=== PATIENT | female | born 1945 | race Caucasian/White ===

== ENCOUNTER 2017-02-27 16:11 | Inpatient (IN) | payer MEDICARE ==
[2017-02-27] MEDS ORDERED: Furosemide IV* 10 MG/ML VIAL (40 MG) IV SLOW PU ONE (16:38)
[2017-02-27] MEDS ORDERED: methylPREDNISolone 125 MG* 2 ML VIAL IV ONE (16:39)
[2017-02-27 16:54] LABS: FIO2 10
--- NOTE | 2017-02-27 16:56 | RAD ---
INDICATION: Congestion, cough, shortness of breath. COMPARISON: Comparison is made with a prior study from September 18, 2013. TECHNIQUE: A portable view of the chest was obtained. FINDINGS: The heart appears mildly enlarged and unchanged from the prior exam. There is a catheter which projects over the right hemithorax and neck likely representing a ventricular peritoneal shunt catheter. There is a focal infiltrate at the right lung base and a small right pleural effusion. The left lung appears clear. IMPRESSION: RIGHT BASILAR INFILTRATE AND PLEURAL EFFUSION.
[2017-02-27 17:00] LABS: Hematocrit 40 % (35-47); Mean Corpuscular HGB Conc 32 g/dl (31-36); Mean Corpuscular Hemoglobin 30 pg (27-31); Mean Corpuscular Volume 93 fL (80-97); Mean Platelet Volume 9 um3 (7.4-10.4); Red Blood Count 4.34 10^6/ul (4.0-5.4); Red Cell Distribution Width 16 % (10.5-15); White Blood Count 6.7 10^3/ul (3.5-10.8)
[2017-02-27] MEDS ORDERED: cefTRIAXone(*) 1 GM in NS 0.9% 50 ML* 50 ML IVPB ONE (17:08)
[2017-02-27] MEDS ORDERED: Azithromycin IV(*) 500 MG in NS 0.9% 250 ML* 250 ML IVPB ONE ×2 (17:08→17:59)
[2017-02-27 17:16] LABS: Albumin 3.7 g/dL (3.2-5.2); Calcium 9.4 mg/dL (8.6-10.3); EGFR African American 57.5 (>60); EGFR Non-African American 44.7 (>60); Globulin 3.4 g/dL (2-4); Potassium 4.3 mmol/L (3.5-5.0); Total Bilirubin 1.4 mg/dL (0.2-1.0); Total Protein 7.1 g/dL (6.4-8.9)
[2017-02-27 17:18] LABS: Troponin I 0.04 ng/mL (<0.04)
[2017-02-27 17:21] LABS: PCO2 Arterial 59 mmHg (35-45)
[2017-02-27] MEDS ORDERED: Albuterol 2.5 MG/3 ML NEB.SOL* (0.083%) INH PRN (17:59)
[2017-02-27] MEDS ORDERED: Ondansetron INJ* 2 MG/ML VIAL IV PRN (17:59)
[2017-02-27] MEDS ORDERED: NS 0.9% 1000 ML* 1,000 ML IV ONE (17:59)
[2017-02-27] MEDS ORDERED: Acetaminophen TAB* 325 MG PO PRN (17:59)
[2017-02-27] MEDS ORDERED: NS 0.9% 1000 ML* 1,000 ML IV SCH (18:00)
[2017-02-27] MEDS ORDERED: Dextrose 50% Syringe 50 ML* 25 GM/50 ML SYRINGE IV PUSH PRN (18:13)
[2017-02-27 19:01] LABS: EPAP 8; FIO2 50; IPAP 14
[2017-02-27 19:06] LABS: PCO2 Arterial 52 mmHg (35-45)
[2017-02-27] MEDS ORDERED: hydrALAZINE IV* 20 MG/ML VIAL IV SLOW PU PRN (19:35)
[2017-02-27] MEDS ORDERED: hydrALAZINE IV* 20 MG/ML VIAL ONE (19:38)
[2017-02-27] MEDS: Albuterol/Ipratropium NEB.SOL* Albuterol 2.5 MG/Ipratropium 0.5 MG 3 ML INH SCH ×2 (20:11→23:10)
[2017-02-27] MEDS: Mometasone/Formoter 200/5 MDI INH SCH (20:12)
--- NOTE | 2017-02-27 20:25 | RAD ---
INDICATION: Altered mental status. COMPARISON: Comparison is made with a prior CT of the brain from September 18, 2013. TECHNIQUE: Contiguous axial sections of the brain were obtained from the skull base to the vertex without contrast. FINDINGS: There is a ventricular peritoneal shunt catheter entering from the posterior parietal approach on the right side. The catheter tip projects over the frontal horn of the left lateral ventricle. The ventricles appear small in size and unchanged from the prior exam. There are bilateral chronic appearing subdural collections adjacent to the frontal, temporal and parietal lobes. The collection on the left side is slightly more prominent than on the previous exam measuring approximately 5 mm in thickness. There is a focal area of encephalomalacia present in the inferior medial left frontal lobe which is unchanged. There are multiple surgical clips is an at the skull base likely from a prior aneurysm clipping. There are small areas of decreased attenuation in the periventricular white matter most consistent with chronic small vessel ischemic changes. No other focal abnormalities are seen. There is mucosal thickening within the maxillary and ethmoid air cells. The frontal and sphenoid sinuses appear clear. The mastoid air cells and middle ear cavities appear clear. IMPRESSION: 1. CHRONIC BILATERAL SUBDURAL COLLECTIONS SLIGHTLY MORE PROMINENT ON THE LEFT SIDE THAN ON THE PRIOR STUDY. 2. SMALL VENTRICLES, UNCHANGED. 3. VENTRICULAR PERITONEAL SHUNT CATHETER IN PLACE. 4. MODERATE SIZE AREA OF ENCEPHALOMALACIA IN THE INFERIOR LEFT FRONTAL LOBE, UNCHANGED.
[2017-02-27 21:20] LABS: Urine Bacteria 1+ (Absent); Urine Bilirubin Negative (Negative); Urine Glucose Negative (Negative); Urine Nitrite Positive (Negative)
[2017-02-27] MEDS: cefTRIAXone VIAL(*) 1,000 MG in NS 0.9% 50 ML* 50 ML IVPB SCH (21:29)
[2017-02-27] MEDS: methylPREDNISolone 125 MG* 2 ML VIAL IV SCH (21:29)
[2017-02-27] MEDS: Atenolol TAB* 50 MG PO SCH (22:01)
[2017-02-27] MEDS: Omeprazole CAP* 20 MG PO SCH (22:06)
[2017-02-27] MEDS: Nystatin TOP POWDER* 15 GM BTL TOPICAL SCH (22:06)
--- NOTE | 2017-02-27 22:12 | HP ---
CC: Dr. Mccarthy * HISTORY AND PHYSICAL: DATE OF ADMISSION: 02/27/17 PRIMARY CARE PROVIDER: Dr. Mccarthy. ATTENDING PHYSICIAN WHILE IN THE HOSPITAL: Nhan Wheatley MD * (report dictated by Elmer Gerardo NP). CHIEF COMPLAINT: 1. Cough. 2. Shortness of breath. HISTORY OF PRESENT ILLNESS: She comes in today because she was having worsening cough, shortness of breath. She was not feeling well. She recently had been exposed to her sister who had recent URI symptoms as well. The sister has noted that the patient has been becoming more drowsy, particularly since last night. She has been coughing more. She has been having more wheezing. She said her chest has sounded like there is a rattle in there. The patient's sister also said that there has been no fevers or vomiting or diarrhea. Please note that the patient really is unable give me much history because she is very drowsy. She will awaken to pain and then swiftly falls back asleep. She really cannot give me the complete history. The patient came into our ER today , she was evaluated and it was noted that on x-ray there was concern for possible pneumonia and we were asked to evaluate for admission. PAST MEDICAL HISTORY: Significant for: 1. Hypertension. 2. Diabetes. 3. Depression. 4. History of cerebellar aneurysm. 5. Escamilla's esophagus. 6. AFib. 7. Seizures. 8. History of COPD. PAST SURGICAL HISTORY: 1. 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 2. She has had an aneurysm clipping. 3. Lumbar laminectomy. 4. Hysterectomy. MEDICATIONS: Home medications include: 1. Tylenol 1000 mg every 6 hours as needed. 2. Symbicort 2 puffs inhaled b.i.d. 3. Lisinopril 5 mg daily. 4. Diltiazem XR 120 mg daily. 5. Celexa 40 mg daily. 6. Questran 4 g p.o. b.i.d. before meals. 7. Xarelto 20 mg daily. 8. Fosamax 70 mg p.o. weekly. 9. Amlodipine 2.5 mg daily. 10. Prilosec 20 mg p.o. b.i.d. 11. Atenolol 50 mg p.o. b.i.d. ALLERGIES TO MEDICATIONS: Include no known drug allergies. FAMILY HISTORY: Mother had a history of aortic stenosis. Father had a history of diabetes. SOCIAL HISTORY: She is a half a pack a day smoker. She has been smoking as a teenager. She does not drink alcohol. Surrogate decision maker has not been appointed. She does have a son, but he lives in [place]. I discussed with sister and there has been no mention and no official documentation of her surrogate decision maker. REVIEW OF SYSTEMS: Unable to be obtained as the patient currently is on BiPAP. In addition to this, will awaken, but will not answer questions currently. PHYSICAL EXAMINATION GENERAL: At this time, Mrs. Rosado is a 71-year-old female patient. She is chronically ill appearing. She is sitting in the ER stretcher. She does not appear to be in any acute distress. VITAL SIGNS: Blood pressure 115/68, pulse 71, respirations 18, O2 sat 100%, temperature when she came in was 97.9. HEENT: Head: Atraumatic, normocephalic. Eyes: EOMs are intact. Sclerae anicteric and not pale. Throat: Oral mucosa does appear to be dry. No oropharyngeal erythema. NECK: Supple. LUNGS: She had wheezing noted throughout, rhonchi in the upper lobes. Equal diaphragmatic expansion. HEART: Sounds S1, S2. Irregularly irregular rate. No murmurs, rubs, or gallops. ABDOMEN: Soft, flat, nontender. Bowel sounds present. EXTREMITIES: Pulses were 2+ throughout. She had no peripheral edema. She did have bilateral lower venous stasis ulcers and chronic brown discoloration from venous stasis. There did appear to be some ulcers, particularly on the left lower extremity on the posterior aspect of her lower leg, which was draining a serous discharge. NEUROLOGIC: She will awaken to noxious stimuli. She will open her eyes. She will moan and say 'aw' and then quickly does fall back asleep. She has no gross focal deficits. SKIN: Intact with exception of the aforementioned ulcers. DIAGNOSTIC STUDIES/LAB DATA: WBC of 6.7, RBC of 4.34, hemoglobin 13.0, hematocrit of 40, platelet count of 137,000. INR was 1.39. PTT 39.2. Blood gas revealed a pH of 7.25, pCO2 of 59, pO2 of 60. The sodium was 136, potassium was 4.3, chloride of 104, bicarb of 25, BUN 19, creatinine 1.19, baseline glucose of 110. Lactate 1.2. Calcium 9.4. Total bili 1.4, AST 8, ALT 5, alk phos 71. Troponin 0.04, which appears to be very near her baseline. Her BNP was 1071. It has been higher in the past and her albumin was 3.7. Chest x-ray obtained today, impression: Right basilar infiltrate and pleural effusion. She did have an EKG obtained today, showed atrial fibrillation with a rate of 80. She does have an incomplete left bundle-branch block. It was reviewed with the previous EKG that does appear to be similar. Old medical records were reviewed. ASSESSMENT AND PLAN: Mrs. Rosado is a 71-year-old female patient coming into the ER today with complaints of cough, increasing shortness of breath over the last 3 days in the setting of a recent exposure to a sick contact. She will be admitted under inpatient status for: 1. Chronic obstructive pulmonary disease exacerbation. I do note that her BNP is 1071, but with her history, progressive worsening cough, she was coughing up mucopurulent sputum according to the patient's family member. She had been exposed to a sick contact. In addition to that she has been wheezing and she started out with a runny nose and congestion. I am leaning towards this being an acute pneumonia causing respiratory failure, causing her to become septic as evidenced by the altered mental status and she was hypoxic with respiratory failure and she was tachypneic when she came in. My plan will be to put her on nebs, steroids, ariza culture her, get blood cultures, get Legionella antigen, strep pneumo antigen, check flu swab, put her on ceftriaxone and azithromycin, nebs around the clock, aggressive pulmonary toileting, start her on BiPAP, which she is tolerating well now and repeat that ABG to see how she responds. Continue to follow. I am also doing a procalcitonin. 2. Elevated troponin. This is probably in the setting of demand ischemia due to the hypoxia and the underlying infection and the chronic obstructive pulmonary disease exacerbation. We will trend these and follow. 3. Hypertension. In the setting of acute illness, I am going to hold her medications with the exception of her beta-jigna, I do not want her to go into rapid atrial fibrillation. 4. Diabetes. I will put her on lispro sliding scale. 5. Depression. Continue supportive care. 6. Altered mental status. It could be related to the infection, but because of the history of the cerebral aneurysm, I am going to get a CT of the brain. 7. History of Escamilla's. Continue her PPI therapy. 8. Atrial fibrillation. Continue Xarelto, pending the CT of the brain. 9. Seizures. Continue with meds as prescribed. 10. DVT prophylaxis. Again, she is on Xarelto. 11. Code status. She will be a full code. 12. Fluids, electrolytes, and nutrition. She is n.p.o. for the time being. TIME SPENT: On admission was approximately 70 minutes, greater than half the time spent [id number] with the patient obtaining my history and physical, the other half time was spent going over the plan of care with the patient and implementing plan of care. I did discuss the plan of care with my attending, Dr. Wheatley; he is in agreement. ELMER GERARDO, BREA [id number]/CPS #: [id number] DOREEN
[2017-02-28] MEDS: Insulin LISPRO* 1 UNITS UNIT SUBCUT SCH ×5 (00:43→23:34)
[2017-02-28] MEDS: methylPREDNISolone 125 MG* 2 ML VIAL IV SCH ×3 (02:11→18:13)
[2017-02-28] MEDS: Albuterol/Ipratropium NEB.SOL* Albuterol 2.5 MG/Ipratropium 0.5 MG 3 ML INH SCH ×4 (03:27→16:17)
[2017-02-28 05:44] LABS: Hematocrit 39 % (35-47); Hemoglobin 12.8 g/dl (12.0-16.0); Mean Corpuscular HGB Conc 33 g/dl (31-36); Mean Corpuscular Hemoglobin 30 pg (27-31); Mean Corpuscular Volume 91 fL (80-97); Mean Platelet Volume 8 um3 (7.4-10.4); Red Blood Count 4.21 10^6/ul (4.0-5.4); Red Cell Distribution Width 16 % (10.5-15)
[2017-02-28 05:58] LABS: BUN/Creatinine Ratio 17.4 (8-20); Calcium 8.8 mg/dL (8.6-10.3); EGFR Non-African American 39.7 (>60); Potassium 4.2 mmol/L (3.5-5.0)
[2017-02-28] MEDS: Mometasone/Formoter 200/5 MDI INH SCH ×2 (08:30→20:03)
--- NOTE | 2017-02-28 08:58 | ED ---
Sharron Quiroz SooYoung, scribed for Frederick Palomino MD on 02/27/17 at 1625 . Shortness of Breath - HPI Summary HPI Summary: A 71 y/o F HOWARD presents to ED with c/o SOB onset "a while ago." Denies CP, weakness. Pt lives with her sister, and is on home O2 at night. Pt states at bedside that she is OK with receiving respiratory treatments. She is on water pills, which she did take today. Pert PMHx: COPD, denies PMHx CA. Sees Dr. Green, pulmonary. - History of Current Complaint Chief Complaint: EDRespiratoryDistress Time Seen by Provider: 02/27/17 16:23 Hx Obtained From: Patient Onset/Duration: Still Present Timing: Constant Dyspnea At: Rest - Allergy/Home Medications Allergies/Adverse Reactions: Allergies Allergy/AdvReac Type Severity Reaction Status Date / Time No Known Allergies Allergy Verified 11/17/13 12:17 Home Medications: Home Medications Alendronate (NF) [Fosamax (NF)] 70 mg PO WEEKLY 02/27/17 [History Confirmed 01/05] Atenolol TAB* [Tenormin TAB* 25 MG] 50 mg PO BID 02/27/17 [History Confirmed 01/05] Budesonide/Formote 80/4.5(NF) [Symbicort 80/4.5 (NF)] 2 puff INH BID 02/27/17 [ History Confirmed 02/27/17] Cholestyramine Resin* [Questran*] 4 gm PO BID AC 02/27/17 [History Confirmed 01/05] Citalopram TAB* [CeleXA TAB*] 40 mg PO DAILY 02/27/17 [History Confirmed ] Diltiazem XR EXTEND Releas(NF) [Cartia XR (NF)] 120 mg PO QAM 02/27/17 [History Confirmed 02/27/17] Rivaroxaban TAB(*) [Xarelto 20 mg] 20 mg PO DAILY 02/27/17 [History Confirmed ] amLODIPine TAB* [Norvasc 5 mg TAB*] 2.5 mg PO DAILY 02/27/17 [History Confirmed 02/27/17] PMH/Surg Hx/FS Hx/Imm Hx Previously Healthy: No Endocrine/Hematology History: Reports: Hx Diabetes - NIDDM Denies: Hx Anticoagulant Therapy, Hx Thyroid Disease, Hx Anemia, Hx Unexplained Bleeding Cardiovascular History: Reports: Hx Aneurysm - CEREBRAL ANEURYSM WITH CLIP, Hx Angina, Hx Deep Vein Thrombosis, Hx Hypercholesterolemia - HLD, Hx Hypertension , Other Cardiovascular Problems/Disorders - murmur Denies: Hx Angioplasty, Hx Auto Implanted Cardiovert Defib, Hx Cardiac Arrest , Hx Cardiomegaly, Hx Congestive Heart Failure, Hx Coronary Artery Disease, Hx Hypotension, Hx Pacemaker/ICD, Hx Peripheral Vascular Disease, Hx Rheumatic Fever, Hx Valvular Heart Disease Respiratory History: Reports: Hx Pneumonia, Other Respiratory Problems/ Disorders - HX INTUBATION 2013 W/FLU A Denies: Hx Asthma, Hx Chronic Bronchitis, Hx Chronic Obstructive Pulmonary Disease (COPD), Hx Pleural Effusion, Hx Pulmonary Edema, Hx Pulmonary Embolism, Hx Seasonal Allergies, Hx Sleep Apnea GI History: Reports: Hx Gall Bladder Disease, Hx Gastroesophageal Reflux Disease - TAKES OMEPRAZOLE, Hx Ulcer - GI, Other GI Disorders - BARRETTS ESOPHAGUS Denies: Hx Cirrhosis, Hx Diverticulosis, Hx Gastrointestinal Bleed, Hx Irritable Bowel History: Reports: Hx Kidney Stones - 2 WEEKS AGO, Hx Renal Disease - URINARY SEPSIS, Other Problems/Disorders - RENAL INSUFF Denies: Hx Dialysis Musculoskeletal History: Reports: Hx Arthritis, Hx Back Problems, Hx Bursitis, Other Musculoskeletal History - hernia Sensory History: Reports: Hx Cataracts, Hx Contacts or Glasses Denies: Hx Hearing Aid Opthamlomology History: Reports: Hx Cataracts, Hx Contacts or Glasses Neurological History: Reports: Hx Seizures, Other Neuro Impairments/Disorders - CEREBRAL ANEURYSM Denies: Hx Dementia, Hx Developmental Delay, Hx Headaches, Hx Migraine, Hx Nerve Disease, Hx Spinal Cord Injury, Hx Transient Ischemic Attacks (TIA) Psychiatric History: Denies: Hx Panic Disorder, Hx Substance Abuse - Surgical History Surgery Procedure, Year, and Place: 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 LUMBAR LAMINECTOMY. CHOLECYSTECTOMY. CEREBRAL ANEURYSM CLIPPING 2002. FOOT SURGERY 2001. PICC LINE 2014. HYSTERECTOMY Hx Anesthesia Reactions: No - Immunization History Date of Tetanus Vaccine: Unknown Date of Influenza Vaccine: Unk Infectious Disease History: No Infectious Disease History: Denies: Hx Hepatitis, Hx Human Immunodeficiency Virus (HIV), Hx Shingles, Hx Tuberculosis, Traveled Outside the [place] in Last 30 Days - Family History Known Family History: Positive: Cardiac Disease - CAD, Other - neg: Breast CA - Social History Occupation: Retired Lives: With Family - sister Alcohol Use: None Hx Substance Use: No Substance Use Type: Reports: None Hx Tobacco Use: Yes Smoking Status (MU): Heavy Every Day Tobacco Smoker Type: Cigarettes Amount Used/How Often: 1ppd Length of Time of Smoking/Using Tobacco: 40years Have You Smoked in the Last Year: Yes Review of Systems Negative: Fever, Chills Negative: Erythema Negative: Sore Throat Negative: Chest Pain Positive: Shortness Of Breath. Negative: Cough Negative: Abdominal Pain, Vomiting, Nausea Negative: dysuria, hematuria Negative: Myalgia, Edema Negative: Rash Neurological: Other - neg: dizziness Negative: Weakness All Other Systems Reviewed And Are Negative: Yes Physical Exam - Summary Physical Exam Summary: Constitutional: Well-developed, Well-nourished, Alert. (-) Distressed. Pt appears drowsy. Skin: Warm, Dry. Scaly, edematous lower extremities. HENT: Normocephalic; Atraumatic Eyes: Conjunctiva normal Neck: Musculoskeletal ROM normal neck. (-) JVD, (-) Stridor, (-) Tracheal deviation Cardio: Rhythm regular, rate normal, Heart sounds normal; Intact distal pulses; The pedal pulses are 2+ and symmetric. Radial pulses are 2+ and symmetric. (-) Murmur Pulmonary/Chest wall: Diminished lung sounds on R side. Abd: Soft, (-) Tenderness, (-) Distension, (-) Guarding, (-) Rebound Musculoskeletal: (-) Edema Lymph: (-) Cervical adenopathy Neuro: Alert, Oriented x3 Psych: Mood and affect Normal Triage Information Reviewed: Yes Vital Signs On Initial Exam: Initial Vitals Temp Pulse Resp BP Pulse Ox 97.9 F 84 33 151/88 95 02/27/17 16:17 02/27/17 16:17 02/27/17 16:17 02/27/17 16:17 02/27/17 16:17 Vital Signs Reviewed: Yes Diagnostics - Vital Signs Vital Signs Temp Pulse Resp BP Pulse Ox 02/27/17 16:17 97.9 F 84 33 151/88 95 - Laboratory Lab Results: Lab Results 02/27/17 02/27/17 02/27/17 Range/Units 16:46 16:50 16:50 WBC 6.7 (3.5-10.8) 10^3/ul RBC 4.34 (4.0-5.4) 10^6/ul Hgb 13.0 (12.0-16.0) g/dl Hct 40 (35-47) % MCV 93 (80-97) fL MCH 30 (27-31) pg MCHC 32 (31-36) g/dl RDW 16 H (10.5-15) % Plt Count 137 L (150-450) 10^3/ul MPV 9 (7.4-10.4) um3 Neut % (Auto) 87.8 H (38-83) % Lymph % (Auto) 5.2 L (25-47) % Barron % (Auto) 5.2 (1-9) % Eos % (Auto) 0.4 (0-6) % Baso % (Auto) 1.4 (0-2) % Absolute Neuts (auto) 5.9 (1.5-7.7) 10^3/ul Absolute Lymphs (auto) 0.3 L (1.0-4.8) 10^3/ul Absolute Monos (auto) 0.3 (0-0.8) 10^3/ul Absolute Eos (auto) 0 (0-0.6) 10^3/ul Absolute Basos (auto) 0.1 (0-0.2) 10^3/ul Absolute Nucleated RBC 0 10^3/ul Nucleated RBC % 0 INR (Anticoag Therapy) (0.89-1.11) APTT (26.0-36.3) seconds Patient Temperature Not Reportable ABG pH 7.25 L (7.35-7.45) ABG pH (Temp Correct) Not Reportable ABG pCO2 59 H (35-45) mmHg ABG pCO2 (Temp Corrct Not Reportable ABG pO2 60 L (80-100) mmHg ABG pO2 (Temp Correct Not Reportable ABG HCO3 22.7 (19-31) mmol/L ABG O2 Saturation 90.6 L (95-98) % ABG Base Excess -2.4 L (-2.0-2.0) Respiration Rate Not Reportable O2 Delivery Device oxymask Ventilator Type Not Reportable Vent Mode Not Reportable FiO2 10 Inspiratory Time Not Reportable PEEP Not Reportable Pressure Support Not Reportable Pressure Control Not Reportable EPAP Not Reportable IPAP Not Reportable BiPAP Not Reportable Sodium 136 (133-145) mmol/L Potassium 4.3 (3.5-5.0) mmol/L Chloride 104 (101-111) mmol/L Carbon Dioxide 25 (22-32) mmol/L Anion Gap 7 (2-11) mmol/L BUN 19 (6-24) mg/dL Creatinine 1.19 H (0.51-0.95) mg/dL Est GFR ( Amer) 57.5 (>60) Est GFR (Non-Af Amer) 44.7 (>60) BUN/Creatinine Ratio 16.0 (8-20) Glucose 110 H (70-100) mg/dL Lactic Acid (0.5-2.0) mmol/L Calcium 9.4 (8.6-10.3) mg/dL Total Bilirubin 1.40 H (0.2-1.0) mg/dL AST 8 L (13-39) U/L ALT 5 L (7-52) U/L Alkaline Phosphatase 71 (34-104) U/L Troponin I 0.04 H* (<0.04) ng/mL B-Natriuretic Peptide ( - 100) pg/mL Total Protein 7.1 (6.4-8.9) g/dL Albumin 3.7 (3.2-5.2) g/dL Globulin 3.4 (2-4) g/dL Albumin/Globulin Ratio 1.1 (1-3) Procalcitonin (<0.6) ng/mL 02/27/17 02/27/17 02/27/17 Range/Units 16:50 16:50 16:50 WBC (3.5-10.8) 10^3/ul RBC (4.0-5.4) 10^6/ul Hgb (12.0-16.0) g/dl Hct (35-47) % MCV (80-97) fL MCH (27-31) pg MCHC (31-36) g/dl RDW (10.5-15) % Plt Count (150-450) 10^3/ul MPV (7.4-10.4) um3 Neut % (Auto) (38-83) % Lymph % (Auto) (25-47) % Barron % (Auto) (1-9) % Eos % (Auto) (0-6) % Baso % (Auto) (0-2) % Absolute Neuts (auto) (1.5-7.7) 10^3/ul Absolute Lymphs (auto) (1.0-4.8) 10^3/ul Absolute Monos (auto) (0-0.8) 10^3/ul Absolute Eos (auto) (0-0.6) 10^3/ul Absolute Basos (auto) (0-0.2) 10^3/ul Absolute Nucleated RBC 10^3/ul Nucleated RBC % INR (Anticoag Therapy) 1.39 H (0.89-1.11) APTT 39.2 H (26.0-36.3) seconds Patient Temperature ABG pH (7.35-7.45) ABG pH (Temp Correct) ABG pCO2 (35-45) mmHg ABG pCO2 (Temp Corrct ABG pO2 (80-100) mmHg ABG pO2 (Temp Correct ABG HCO3 (19-31) mmol/L ABG O2 Saturation (95-98) % ABG Base Excess (-2.0-2.0) Respiration Rate O2 Delivery Device Ventilator Type Vent Mode FiO2 Inspiratory Time PEEP Pressure Support Pressure Control EPAP IPAP BiPAP Sodium (133-145) mmol/L Potassium (3.5-5.0) mmol/L Chloride (101-111) mmol/L Carbon Dioxide (22-32) mmol/L Anion Gap (2-11) mmol/L BUN (6-24) mg/dL Creatinine (0.51-0.95) mg/dL Est GFR ( Amer) (>60) Est GFR (Non-Af Amer) (>60) BUN/Creatinine Ratio (8-20) Glucose (70-100) mg/dL Lactic Acid 1.2 (0.5-2.0) mmol/L Calcium (8.6-10.3) mg/dL Total Bilirubin (0.2-1.0) mg/dL AST (13-39) U/L ALT (7-52) U/L Alkaline Phosphatase (34-104) U/L Troponin I (<0.04) ng/mL B-Natriuretic Peptide 1071 H ( - 100) pg/mL Total Protein (6.4-8.9) g/dL Albumin (3.2-5.2) g/dL Globulin (2-4) g/dL Albumin/Globulin Ratio (1-3) Procalcitonin (<0.6) ng/mL 02/27/17 Range/Units 16:50 WBC (3.5-10.8) 10^3/ul RBC (4.0-5.4) 10^6/ul Hgb (12.0-16.0) g/dl Hct (35-47) % MCV (80-97) fL MCH (27-31) pg MCHC (31-36) g/dl RDW (10.5-15) % Plt Count (150-450) 10^3/ul MPV (7.4-10.4) um3 Neut % (Auto) (38-83) % Lymph % (Auto) (25-47) % Barron % (Auto) (1-9) % Eos % (Auto) (0-6) % Baso % (Auto) (0-2) % Absolute Neuts (auto) (1.5-7.7) 10^3/ul Absolute Lymphs (auto) (1.0-4.8) 10^3/ul Absolute Monos (auto) (0-0.8) 10^3/ul Absolute Eos (auto) (0-0.6) 10^3/ul Absolute Basos (auto) (0-0.2) 10^3/ul Absolute Nucleated RBC 10^3/ul Nucleated RBC % INR (Anticoag Therapy) (0.89-1.11) APTT (26.0-36.3) seconds Patient Temperature ABG pH (7.35-7.45) ABG pH (Temp Correct) ABG pCO2 (35-45) mmHg ABG pCO2 (Temp Corrct ABG pO2 (80-100) mmHg ABG pO2 (Temp Correct ABG HCO3 (19-31) mmol/L ABG O2 Saturation (95-98) % ABG Base Excess (-2.0-2.0) Respiration Rate O2 Delivery Device Ventilator Type Vent Mode FiO2 Inspiratory Time PEEP Pressure Support Pressure Control EPAP IPAP BiPAP Sodium (133-145) mmol/L Potassium (3.5-5.0) mmol/L Chloride (101-111) mmol/L Carbon Dioxide (22-32) mmol/L Anion Gap (2-11) mmol/L BUN (6-24) mg/dL Creatinine (0.51-0.95) mg/dL Est GFR ( Amer) (>60) Est GFR (Non-Af Amer) (>60) BUN/Creatinine Ratio (8-20) Glucose (70-100) mg/dL Lactic Acid (0.5-2.0) mmol/L Calcium (8.6-10.3) mg/dL Total Bilirubin (0.2-1.0) mg/dL AST (13-39) U/L ALT (7-52) U/L Alkaline Phosphatase (34-104) U/L Troponin I (<0.04) ng/mL B-Natriuretic Peptide ( - 100) pg/mL Total Protein (6.4-8.9) g/dL Albumin (3.2-5.2) g/dL Globulin (2-4) g/dL Albumin/Globulin Ratio (1-3) Procalcitonin < 0.1 (<0.6) ng/mL Result Diagrams: 02/28/17 05:26 02/28/17 05:26 Lab Statement: Any lab studies that have been ordered have been reviewed, and results considered in the medical decision making process. - Radiology CXR Xray Interpretation: Positive (See Comments) - R pleural effusion Radiology Interpretation Completed By: ED Physician - EKG 1701 EKG Rhythm: Atrial Fibrillation - [address] Segment: Normal EKG Interpretation: non STEMI Re-Evaluation - Re-Evaluation 1 Re-Evaluation Time: 17:13 Change: Unchanged Comment: Pt is still drowsy. 2 Re-Evaluation Time: 17:23 Change: Worse Comment: Pt is more drowsy. She can nod her head yes and no to answer questions. She appears to be protecting her airway. Will request bipap. Course/Dx - Course Course Of Treatment: A 71 y/o F BIBA presents to ED with c/o SOB onset "a while ago." Denies CP, weakness. Pt lives with her sister, and is on home O2 at night. Pt states at bedside that she is OK with receiving respiratory treatments. She is on water pills, which she did take today. Pert PMHx: COPD, denies PMHx CA. Sees Dr. Green, pulmonary. Pt given solumedrol, lasix in ED. Blood work results show INR is 1.39, APTT is 39.2, BNP is 1071, trop is 0.04. - Diagnoses Provider Diagnoses: Acute respiratory failure - Physician Notifications Discussed Care of Patient With: Delfina Smith - hospitalist Time Discussed With Above Provider: 17:21 Instructed by Provider To: Admit As Inpatient Discharge - Discharge Plan Condition: Fair Disposition: ADMITTED TO [facility] The documentation as recorded by the Sharron ed oliveira SooYoung accurately reflects the service I personally performed and the decisions made by me, Frederick Palomino MD.
[2017-02-28] MEDS: Omeprazole CAP* 20 MG PO SCH ×2 (09:32→20:25)
[2017-02-28] MEDS: Atenolol TAB* 50 MG PO SCH ×2 (09:32→20:25)
[2017-02-28] MEDS: Rivaroxaban TAB(*) 20 MG TAB PO SCH (09:33)
[2017-02-28] MEDS: guaiFENesin ER TAB 600 MG PO SCH ×2 (11:46→20:25)
[2017-02-28] MEDS: Nystatin TOP POWDER* 15 GM BTL TOPICAL SCH ×3 (13:26→20:26)
--- NOTE | 2017-02-28 18:12 | PN ---
Subjective Date of Service: 02/28/17 Interval History: Patient found to be minimally responsive this morning on BiPaP. Roused to name but went back to sleep quickly. Returned soon after and patient was awake and alert and able to be weaned off BiPaP. Stable SOB with no CP, N/V, F/C, N/V, abdominal pain, or other complaint. Currently on Vapotherm at 20L. Family History: Unchanged from Admission Social History: Unchanged from Admission Past Medical History: Unchanged from Admission Objective Active Medications: Acetaminophen (Tylenol Tab*) 650 mg PO Q4H PRN PRN Reason: FEVER/PAIN Albuterol (Ventolin 2.5 Mg/3 Ml Neb.Cherie*) 2.5 mg INH Q2H PRN PRN Reason: SOB/WHEEZING Atenolol (Tenormin Tab*) 50 mg PO BID [facility] Last Admin: 02/28/17 09:32 Dose: 50 mg Dextrose (D50w Syringe 50 Ml*) 12.5 gm IV PUSH .FOR FS < 60 - SS PRN PRN Reason: FS < 60 Furosemide (Lasix Tab*) 20 mg PO DAILY [facility] Guaifenesin (Mucinex*) 1,200 mg PO BID [facility] Last Admin: 02/28/17 11:46 Dose: 1,200 mg Hydralazine HCl (Apresoline Iv*) 5 mg IV SLOW PU Q6H PRN PRN Reason: BLOOD PRESSURE Last Admin: 02/27/17 19:43 Dose: 5 mg Ceftriaxone Sodium 1,000 mg/ (Sodium Chloride) 50 mls @ 200 mls/hr IVPB Q24H [facility] Last Admin: 02/27/17 21:29 Dose: Not Given Azithromycin 250 mg/ Sodium (Chloride) 250 mls @ 250 mls/hr IVPB Q24H [facility] Insulin Human Lispro (Humalog*) 0 units SUBCUT Q6HR KEYA PRN Reason: Protocol Last Admin: 02/28/17 13:19 Dose: 3 units Methylprednisolone Sodium Succinate (Solu-Medrol 125mg *) 60 mg IV Q8H [facility] Last Admin: 02/28/17 09:39 Dose: 60 mg Mometasone Furoate/Formoterol Fumar (Dulera 200/5 Mdi*) 2 puff INH BID [facility] Last Admin: 02/28/17 08:30 Dose: 2 puff Nystatin (Nystatin Top Powder*) 1 applic TOPICAL TID [facility] Last Admin: 02/28/17 13:27 Dose: 1 applic Omeprazole (Prilosec Cap*) 20 mg PO BID [facility] Last Admin: 02/28/17 09:32 Dose: 20 mg Ondansetron HCl (Zofran Inj*) 4 mg IV Q6H PRN PRN Reason: NAUSEA Rivaroxaban (Xarelto (*)) 20 mg PO DAILY [facility] Last Admin: 02/28/17 09:33 Dose: 20 mg Vital Signs 02/27/17 02/27/17 02/27/17 18:25 18:46 19:00 Temperature Pulse Rate 93 69 72 Respiratory 23 18 21 Rate Blood Pressure 173/107 132/62 (mmHg) O2 Sat by Pulse 92 97 100 Oximetry 02/27/17 02/27/17 02/27/17 19:01 19:15 19:32 Temperature Pulse Rate 76 69 98 Respiratory 19 19 25 Rate Blood Pressure 123/58 145/72 182/80 (mmHg) O2 Sat by Pulse 99 96 93 Oximetry 02/27/17 02/27/17 02/27/17 19:33 19:46 20:00 Temperature Pulse Rate 90 85 Respiratory 31 21 22 Rate Blood Pressure 181/108 173/100 (mmHg) O2 Sat by Pulse 92 94 Oximetry 02/27/17 02/27/17 02/27/17 20:09 20:13 21:00 Temperature Pulse Rate 95 98 84 Respiratory 23 31 26 Rate Blood Pressure (mmHg) O2 Sat by Pulse 93 96 96 Oximetry 02/27/17 02/27/17 02/27/17 21:27 21:31 21:45 Temperature Pulse Rate 87 85 77 Respiratory 25 27 34 Rate Blood Pressure 104/53 92/50 96/49 (mmHg) O2 Sat by Pulse 95 96 98 Oximetry 02/27/17 02/27/17 02/27/17 22:00 22:01 22:16 Temperature Pulse Rate 69 72 81 Respiratory 23 22 34 Rate Blood Pressure 116/54 118/70 (mmHg) O2 Sat by Pulse 98 99 98 Oximetry 02/27/17 02/27/17 02/27/17 22:30 22:46 23:00 Temperature Pulse Rate 84 81 85 Respiratory 28 26 23 Rate Blood Pressure 139/76 145/55 (mmHg) O2 Sat by Pulse 98 100 98 Oximetry 02/27/17 02/27/17 02/27/17 23:01 23:10 23:11 Temperature 99.1 F Pulse Rate 89 82 86 Respiratory 26 22 29 Rate Blood Pressure 135/72 (mmHg) O2 Sat by Pulse 99 99 99 Oximetry 02/27/17 02/27/17 02/28/17 23:16 23:31 00:00 Temperature 99.1 F 99.1 F 99.1 F Pulse Rate 83 84 82 Respiratory 28 28 34 Rate Blood Pressure 125/79 118/65 131/63 (mmHg) O2 Sat by Pulse 99 99 99 Oximetry 02/28/17 02/28/17 02/28/17 00:31 01:00 01:30 Temperature 99.3 F 99.3 F 99.5 F Pulse Rate 104 83 89 Respiratory 31 20 11 Rate Blood Pressure 125/73 92/61 110/53 (mmHg) O2 Sat by Pulse 97 99 99 Oximetry 02/28/17 02/28/17 02/28/17 02:00 02:30 03:00 Temperature 99.5 F 99.5 F 99.9 F Pulse Rate 84 81 86 Respiratory 15 13 18 Rate Blood Pressure 109/60 118/68 124/62 (mmHg) O2 Sat by Pulse 99 97 99 Oximetry 02/28/17 02/28/17 02/28/17 03:28 03:30 04:00 Temperature 99.7 F 99.9 F Pulse Rate 86 89 98 Respiratory 24 24 20 Rate Blood Pressure 115/68 113/61 (mmHg) O2 Sat by Pulse 98 97 96 Oximetry 02/28/17 02/28/17 02/28/17 04:30 05:00 05:31 Temperature 100.0 F 99.7 F 100.0 F Pulse Rate 107 95 96 Respiratory 20 25 19 Rate Blood Pressure 113/68 146/61 133/60 (mmHg) O2 Sat by Pulse 95 96 93 Oximetry 02/28/17 02/28/17 02/28/17 06:00 06:01 06:30 Temperature 100.2 F 100.2 F 100.2 F Pulse Rate 89 94 91 Respiratory 18 18 19 Rate Blood Pressure 144/65 124/73 (mmHg) O2 Sat by Pulse 95 95 95 Oximetry 02/28/17 02/28/17 02/28/17 07:00 07:30 08:00 Temperature 100.0 F 100.2 F 100.0 F Pulse Rate 93 94 90 Respiratory 22 23 20 Rate Blood Pressure 124/70 136/115 122/68 (mmHg) O2 Sat by Pulse 95 95 96 Oximetry 02/28/17 02/28/17 02/28/17 08:25 08:30 09:00 Temperature 100.0 F 100.0 F Pulse Rate 88 88 107 Respiratory 20 22 22 Rate Blood Pressure 153/76 (mmHg) O2 Sat by Pulse 96 97 92 Oximetry 02/28/17 02/28/17 02/28/17 09:01 09:30 10:00 Temperature 100.2 F 100.4 F 100.2 F Pulse Rate 94 116 95 Respiratory 20 27 24 Rate Blood Pressure 119/80 136/85 134/79 (mmHg) O2 Sat by Pulse 93 92 92 Oximetry 02/28/17 02/28/17 02/28/17 10:05 10:31 11:00 Temperature 100.2 F 100.0 F 100.2 F Pulse Rate 86 100 91 Respiratory 22 24 23 Rate Blood Pressure 134/79 122/80 137/84 (mmHg) O2 Sat by Pulse 92 93 85 Oximetry 02/28/17 02/28/17 02/28/17 11:30 12:00 13:00 Temperature 100.0 F 99.9 F 99.9 F Pulse Rate 97 83 93 Respiratory 22 18 25 Rate Blood Pressure 126/75 135/92 131/107 (mmHg) O2 Sat by Pulse 98 98 98 Oximetry 02/28/17 02/28/17 02/28/17 14:00 15:00 16:00 Temperature 100.0 F 100.0 F 100.4 F Pulse Rate 94 90 84 Respiratory 23 16 18 Rate Blood Pressure 132/78 124/91 129/80 (mmHg) O2 Sat by Pulse 99 97 97 Oximetry 02/28/17 02/28/17 16:15 17:00 Temperature 100.0 F Pulse Rate 106 Respiratory 21 Rate Blood Pressure 129/89 (mmHg) O2 Sat by Pulse 95 100 Oximetry Oxygen Devices in Use Now: High Flow Heated Nasal Cannula Appearance: Patient is a 71yo who appears stated age and is sitting in the bed in NAD. Eyes: No Scleral Icterus, PERRLA Ears/Nose/Mouth/Throat: NL Teeth, Lips, Gums, Clear Oropharnyx, Mucous Membranes Moist Neck: NL Appearance and Movements; NL JVP, Trachea Midline Respiratory: Symmetrical Chest Expansion and Respiratory Effort, - - Significant rhonchi and expiratory wheezes in lower lung estrada. No other adventitious lung sounds. Cardiovascular: NL Sounds; No Murmurs; No JVD, RRR, No Edema Abdominal: NL Sounds; No Tenderness; No Distention, No Hepatosplenomegaly Lymphatic: No Cervical Adenopathy Extremities: No Edema, No Clubbing, Cyanosis, - - Significant dry skin and red areas with no weeping or erythema. Skin: No Nodules or Sclerosis Neurological: Alert and Oriented x 3, NL Muscle Strength and Tone, - - Reflexes 2+ and Equal B/L. Downgoing babinski signs bilaterally. Result Diagrams: 02/28/17 05:26 02/28/17 05:26 Additional Lab and Data: Lab Results 02/27/17 02/27/17 02/27/17 Range/Units 16:46 16:50 16:50 WBC 6.7 (3.5-10.8) 10^3/ul RBC 4.34 (4.0-5.4) 10^6/ul Hgb 13.0 (12.0-16.0) g/dl Hct 40 (35-47) % MCV 93 (80-97) fL MCH 30 (27-31) pg MCHC 32 (31-36) g/dl RDW 16 H (10.5-15) % Plt Count 137 L (150-450) 10^3/ul MPV 9 (7.4-10.4) um3 Neut % (Auto) 87.8 H (38-83) % Lymph % (Auto) 5.2 L (25-47) % [place] % (Auto) 5.2 (1-9) % Eos % (Auto) 0.4 (0-6) % Baso % (Auto) 1.4 (0-2) % Absolute Neuts (auto) 5.9 (1.5-7.7) 10^3/ul Absolute Lymphs (auto) 0.3 L (1.0-4.8) 10^3/ul Absolute Monos (auto) 0.3 (0-0.8) 10^3/ul Absolute Eos (auto) 0 (0-0.6) 10^3/ul Absolute Basos (auto) 0.1 (0-0.2) 10^3/ul Absolute Nucleated RBC 0 10^3/ul Nucleated RBC % 0 INR (Anticoag Therapy) (0.89-1.11) APTT (26.0-36.3) seconds Patient Temperature Not Reportable ABG pH 7.25 L (7.35-7.45) ABG pH (Temp Correct) Not Reportable ABG pCO2 59 H (35-45) mmHg ABG pCO2 (Temp Corrct Not Reportable ABG pO2 60 L (80-100) mmHg ABG pO2 (Temp Correct Not Reportable ABG HCO3 22.7 (19-31) mmol/L ABG O2 Saturation 90.6 L (95-98) % ABG Base Excess -2.4 L (-2.0-2.0) Respiration Rate Not Reportable O2 Delivery Device oxymask Ventilator Type Not Reportable Vent Mode Not Reportable FiO2 10 Inspiratory Time Not Reportable PEEP Not Reportable Pressure Support Not Reportable Pressure Control Not Reportable EPAP Not Reportable IPAP Not Reportable BiPAP Not Reportable Sodium 136 (133-145) mmol/L Potassium 4.3 (3.5-5.0) mmol/L Chloride 104 (101-111) mmol/L Carbon Dioxide 25 (22-32) mmol/L Anion Gap 7 (2-11) mmol/L BUN 19 (6-24) mg/dL Creatinine 1.19 H (0.51-0.95) mg/dL Est GFR ( Amer) 57.5 (>60) Est GFR (Non-Af Amer) 44.7 (>60) BUN/Creatinine Ratio 16.0 (8-20) Glucose 110 H (70-100) mg/dL Lactic Acid (0.5-2.0) mmol/L Calcium 9.4 (8.6-10.3) mg/dL Total Bilirubin 1.40 H (0.2-1.0) mg/dL AST 8 L (13-39) U/L ALT 5 L (7-52) U/L Alkaline Phosphatase 71 (34-104) U/L Troponin I 0.04 H* (<0.04) ng/mL B-Natriuretic Peptide ( - 100) pg/mL Total Protein 7.1 (6.4-8.9) g/dL Albumin 3.7 (3.2-5.2) g/dL Globulin 3.4 (2-4) g/dL Albumin/Globulin Ratio 1.1 (1-3) Procalcitonin (<0.6) ng/mL 02/27/17 02/27/17 02/27/17 Range/Units 16:50 16:50 16:50 WBC (3.5-10.8) 10^3/ul RBC (4.0-5.4) 10^6/ul Hgb (12.0-16.0) g/dl Hct (35-47) % MCV (80-97) fL MCH (27-31) pg MCHC (31-36) g/dl RDW (10.5-15) % Plt Count (150-450) 10^3/ul MPV (7.4-10.4) um3 Neut % (Auto) (38-83) % Lymph % (Auto) (25-47) % [place] % (Auto) (1-9) % Eos % (Auto) (0-6) % Baso % (Auto) (0-2) % Absolute Neuts (auto) (1.5-7.7) 10^3/ul Absolute Lymphs (auto) (1.0-4.8) 10^3/ul Absolute Monos (auto) (0-0.8) 10^3/ul Absolute Eos (auto) (0-0.6) 10^3/ul Absolute Basos (auto) (0-0.2) 10^3/ul Absolute Nucleated RBC 10^3/ul Nucleated RBC % INR (Anticoag Therapy) 1.39 H (0.89-1.11) APTT 39.2 H (26.0-36.3) seconds Patient Temperature ABG pH (7.35-7.45) ABG pH (Temp Correct) ABG pCO2 (35-45) mmHg ABG pCO2 (Temp Corrct ABG pO2 (80-100) mmHg ABG pO2 (Temp Correct ABG HCO3 (19-31) mmol/L ABG O2 Saturation (95-98) % ABG Base Excess (-2.0-2.0) Respiration Rate O2 Delivery Device Ventilator Type Vent Mode FiO2 Inspiratory Time PEEP Pressure Support Pressure Control EPAP IPAP BiPAP Sodium (133-145) mmol/L Potassium (3.5-5.0) mmol/L Chloride (101-111) mmol/L Carbon Dioxide (22-32) mmol/L Anion Gap (2-11) mmol/L BUN (6-24) mg/dL Creatinine (0.51-0.95) mg/dL Est GFR ( Amer) (>60) Est GFR (Non-Af Amer) (>60) BUN/Creatinine Ratio (8-20) Glucose (70-100) mg/dL Lactic Acid 1.2 (0.5-2.0) mmol/L Calcium (8.6-10.3) mg/dL Total Bilirubin (0.2-1.0) mg/dL AST (13-39) U/L ALT (7-52) U/L Alkaline Phosphatase (34-104) U/L Troponin I (<0.04) ng/mL B-Natriuretic Peptide 1071 H ( - 100) pg/mL Total Protein (6.4-8.9) g/dL Albumin (3.2-5.2) g/dL Globulin (2-4) g/dL Albumin/Globulin Ratio (1-3) Procalcitonin (<0.6) ng/mL 02/27/17 Range/Units 16:50 WBC (3.5-10.8) 10^3/ul RBC (4.0-5.4) 10^6/ul Hgb (12.0-16.0) g/dl Hct (35-47) % MCV (80-97) fL MCH (27-31) pg MCHC (31-36) g/dl RDW (10.5-15) % Plt Count (150-450) 10^3/ul MPV (7.4-10.4) um3 Neut % (Auto) (38-83) % Lymph % (Auto) (25-47) % [place] % (Auto) (1-9) % Eos % (Auto) (0-6) % Baso % (Auto) (0-2) % Absolute Neuts (auto) (1.5-7.7) 10^3/ul Absolute Lymphs (auto) (1.0-4.8) 10^3/ul Absolute Monos (auto) (0-0.8) 10^3/ul Absolute Eos (auto) (0-0.6) 10^3/ul Absolute Basos (auto) (0-0.2) 10^3/ul Absolute Nucleated RBC 10^3/ul Nucleated RBC % INR (Anticoag Therapy) (0.89-1.11) APTT (26.0-36.3) seconds Patient Temperature ABG pH (7.35-7.45) ABG pH (Temp Correct) ABG pCO2 (35-45) mmHg ABG pCO2 (Temp Corrct ABG pO2 (80-100) mmHg ABG pO2 (Temp Correct ABG HCO3 (19-31) mmol/L ABG O2 Saturation (95-98) % ABG Base Excess (-2.0-2.0) Respiration Rate O2 Delivery Device Ventilator Type Vent Mode FiO2 Inspiratory Time PEEP Pressure Support Pressure Control EPAP IPAP BiPAP Sodium (133-145) mmol/L Potassium (3.5-5.0) mmol/L Chloride (101-111) mmol/L Carbon Dioxide (22-32) mmol/L Anion Gap (2-11) mmol/L BUN (6-24) mg/dL Creatinine (0.51-0.95) mg/dL Est GFR ( Amer) (>60) Est GFR (Non-Af Amer) (>60) BUN/Creatinine Ratio (8-20) Glucose (70-100) mg/dL Lactic Acid (0.5-2.0) mmol/L Calcium (8.6-10.3) mg/dL Total Bilirubin (0.2-1.0) mg/dL AST (13-39) U/L ALT (7-52) U/L Alkaline Phosphatase (34-104) U/L Troponin I (<0.04) ng/mL B-Natriuretic Peptide ( - 100) pg/mL Total Protein (6.4-8.9) g/dL Albumin (3.2-5.2) g/dL Globulin (2-4) g/dL Albumin/Globulin Ratio (1-3) Procalcitonin < 0.1 (<0.6) ng/mL Microbiology and Other Data: Microbiology 02/27/17 20:56 Urine Culture - Preliminary Urine Escherichia Coli 02/27/17 20:56 Legionella Urinary Antigen - Final Urine Negative Legionella Streptococcus pneumoniae Ag Screen - Final Negative S. pneumo Antigen 02/27/17 17:45 Nasal Screen MRSA (PCR)(MILEY) - Final Nasal Mrsa Negative 02/27/17 17:45 Influenza Types A,B Antigen (MILEY) - Final Nasal Specimen received for Influenza A/B Molecular testing Assess/Plan/Problems-Billing Assessment: Patient is a 71yo female with a PMH significant for COPD, HTN, DM II, Cerebellar Aneurysm, Afib, and a history of seizures who presents with a COPD exacerbation and acute respiratory failure who was able to be weaned off of BiPaP and is now on Vapotherm at 15L. - Patient Problems (1) Acute respiratory failure Current Visit: Yes Status: Acute Code(s): J96.00 - ACUTE RESPIRATORY FAILURE , UNSP W HYPOXIA OR HYPERCAPNIA SNOMED Code(s): 82706352 Comment: Due to COPD exacerbation and pneumonia, improving, on 15L Vapotherm currently. (2) Community acquired bacterial pneumonia Current Visit: Yes Status: Acute Code(s): J15.9 - UNSPECIFIED BACTERIAL PNEUMONIA SNOMED Code(s): 231529791 Comment: Febrile with Infiltrate on CXR, leukocytosis and with previously present pleural effusion. Continue Ceftriaxone and Azithromycin. Strep Pneumo and Legionella antigen negative. Flu test negative. (3) COPD (chronic obstructive pulmonary disease) Current Visit: Yes Status: Acute Code(s): J44.9 - CHRONIC OBSTRUCTIVE PULMONARY DISEASE, UNSPECIFIED SNOMED Code(s): 95733210 Comment: Currently in exacerbation, continue scheduled inhalers, oral prednisone, antibiotics and wean O2 as tolerated. (4) Afib Current Visit: Yes Status: Acute Code(s): I48.91 - UNSPECIFIED ATRIAL FIBRILLATION SNOMED Code(s): 92364211 Comment: On home metoprolol, diltiazem and Xarelto. Continue metoprolol, hold diltiazem. Continue xarelto. (5) Diabetes Current Visit: Yes Status: Acute Code(s): E11.9 - TYPE 2 DIABETES MELLITUS WITHOUT COMPLICATIONS SNOMED Code(s): 51430359 Comment: On no home medications. SSI insulin. FSBG between 157 and 200. Probably related to steroids. Will transition to basal insulin if indicated. (6) Depression Current Visit: Yes Status: Acute Code(s): F32.9 - MAJOR DEPRESSIVE DISORDER , SINGLE EPISODE, UNSPECIFIED SNOMED Code(s): 28502892 Comment: No home medications, will monitor for symptoms. (7) [employer] (ventriculoperitoneal) shunt status Current Visit: Yes Status: Acute Comment: Visible on CT scan. Slightly increased hygroma. Will monitor for deterioration in mental status independant of respiratopry status and will rescan head if needed. (8) Jain esophagus Current Visit: Yes Status: Acute Code(s): K22.70 - JAIN'S ESOPHAGUS WITHOUT DYSPLASIA SNOMED Code(s): 197747690 Comment: Continue home omeprazole. (9) HTN (hypertension) Current Visit: Yes Status: Acute Code(s): I10 - ESSENTIAL (PRIMARY) HYPERTENSION SNOMED Code(s): 42072959 Comment: Normotensive, continue metoprolol, hold diltiazem and amlodipine. (10) Chronic acquired lymphedema Current Visit: Yes Status: Acute Code(s): I89.0 - LYMPHEDEMA, NOT ELSEWHERE CLASSIFIED SNOMED Code(s): 16093884 Comment: Of unknown duration and severity. No current open areas or weeping. Appreciate input from wound nurse. Will continue to monitor and would recommend outpatient follow up with a lymphedema clinic. (11) DVT prophylaxis Current Visit: Yes Status: Acute Code(s): LUB6259 - SNOMED Code(s): 182031325 Comment: Marianne (12) Full code status Current Visit: Yes Status: Acute Code(s): Z78.9 - OTHER SPECIFIED HEALTH STATUS SNOMED Code(s): 757773519 Status and Disposition: Patient is admitted to the ICU on Vapotherm. Will wean O2 and transfer to Telemetry when able.
[2017-02-28] MEDS: cefTRIAXone VIAL(*) 1,000 MG in NS 0.9% 50 ML* 50 ML IVPB SCH (18:17)
[2017-02-28] MEDS ORDERED: Spiriva Inhaler DEVICE* 1 EACH DEVICE INH SCH (19:00)
[2017-02-28] MEDS: Azithromycin IV(*) 250 MG in NS 0.9% 250 ML* 250 ML IVPB SCH (20:25)
[2017-03-01] MEDS: methylPREDNISolone 125 MG* 2 ML VIAL IV SCH ×3 (02:36→18:00)
[2017-03-01] MEDS: Insulin LISPRO* 1 UNITS UNIT SUBCUT SCH ×3 (06:07→18:00)
[2017-03-01 06:42] LABS: BUN/Creatinine Ratio 24.3 (8-20); C Reactive Protein 10.86 mg/L (< 5.00); Calcium 8.4 mg/dL (8.6-10.3); EGFR African American 59.8 (>60); EGFR Non-African American 46.5 (>60); Potassium 4.5 mmol/L (3.5-5.0)
[2017-03-01] MEDS: Mometasone/Formoter 200/5 MDI INH SCH ×2 (08:30→19:28)
[2017-03-01] MEDS: Tiotropium CAP.INH* CAP.INH/18 MCG (USE ORDER SET !) INH SCH (08:30)
[2017-03-01] MEDS ORDERED: Spiriva Inhaler DEVICE* 1 EACH DEVICE INH ONE (09:00)
[2017-03-01] MEDS ORDERED: Influenza VAC *QUAD* 2017-18* 0.5 ML SYRINGE IM ONE (09:00)
[2017-03-01] MEDS ORDERED: Furosemide TAB* 20 MG PO SCH (09:00)
[2017-03-01] MEDS: Nystatin TOP POWDER* 15 GM BTL TOPICAL SCH ×3 (10:00→20:33)
[2017-03-01] MEDS: Atenolol TAB* 50 MG PO SCH ×2 (10:02→20:33)
[2017-03-01] MEDS: Omeprazole CAP* 20 MG PO SCH ×2 (10:02→20:33)
[2017-03-01] MEDS: Rivaroxaban TAB(*) 20 MG TAB PO SCH (10:02)
[2017-03-01] MEDS: guaiFENesin ER TAB 600 MG PO SCH ×2 (10:02→20:33)
--- NOTE | 2017-03-01 17:15 | PN ---
Subjective Date of Service: 03/01/17 Interval History: Patient continues to be and lethargic throughout the day but easily arousable, conversant, and A/Ox3 when addressed. Patient unable to be weaned from vapotherm all day despite several attempts to transition to high flow nasal cannula. Patient unable to be gotten out of bed. Patient denies any other complaints including CP, N/V, palpitations, Abdominal Pain, F/C, dysuria, or other pain. Family History: Unchanged from Admission Social History: Unchanged from Admission Past Medical History: Unchanged from Admission Objective Active Medications: Acetaminophen (Tylenol Tab*) 650 mg PO Q4H PRN PRN Reason: FEVER/PAIN Albuterol (Ventolin 2.5 Mg/3 Ml Neb.Cherie*) 2.5 mg INH Q2H PRN PRN Reason: SOB/WHEEZING Atenolol (Tenormin Tab*) 50 mg PO BID [facility] Last Admin: 03/01/17 10:02 Dose: 50 mg Dextrose (D50w Syringe 50 Ml*) 12.5 gm IV PUSH .FOR FS < 60 - SS PRN PRN Reason: FS < 60 Guaifenesin (Mucinex*) 1,200 mg PO BID [facility] Last Admin: 03/01/17 10:02 Dose: 1,200 mg Hydralazine HCl (Apresoline Iv*) 5 mg IV SLOW PU Q6H PRN PRN Reason: BLOOD PRESSURE Last Admin: 02/27/17 19:43 Dose: 5 mg Ceftriaxone Sodium 1,000 mg/ (Sodium Chloride) 50 mls @ 200 mls/hr IVPB Q24H [facility]A Last Admin: 02/28/17 18:17 Dose: 200 mls/hr Azithromycin 250 mg/ Sodium (Chloride) 250 mls @ 250 mls/hr IVPB Q24H [facility] Last Admin: 02/28/17 20:25 Dose: 250 mls/hr Insulin Human Lispro (Humalog*) 0 units SUBCUT Q6HR KEYA PRN Reason: Protocol Last Admin: 03/01/17 13:19 Dose: 3 units Methylprednisolone Sodium Succinate (Solu-Medrol 125mg *) 60 mg IV Q8H [facility] Last Admin: 03/01/17 10:03 Dose: 60 mg Mometasone Furoate/Formoterol Fumar (Dulera 200/5 Mdi*) 2 puff INH BID [facility] Last Admin: 03/01/17 08:30 Dose: 2 puff Nystatin (Nystatin Top Powder*) 1 applic TOPICAL TID [facility] Last Admin: 03/01/17 15:00 Dose: 1 applic Omeprazole (Prilosec Cap*) 20 mg PO BID [facility] Last Admin: 03/01/17 10:02 Dose: 20 mg Ondansetron HCl (Zofran Inj*) 4 mg IV Q6H PRN PRN Reason: NAUSEA Rivaroxaban (Xarelto (*)) 20 mg PO DAILY [facility] Last Admin: 03/01/17 10:02 Dose: 20 mg Tiotropium [place] (Spiriva Cap.Inh*) 1 cap INH DAILY [facility] Last Admin: 03/01/17 08:30 Dose: 1 cap Vital Signs 02/28/17 02/28/17 02/28/17 18:00 19:00 19:02 Temperature 100.2 F 100.0 F 100.0 F Pulse Rate 93 91 89 Respiratory 26 15 27 Rate Blood Pressure 122/83 118/62 (mmHg) O2 Sat by Pulse 97 98 90 Oximetry 02/28/17 02/28/17 02/28/17 20:00 20:05 21:00 Temperature 100.2 F 100.4 F Pulse Rate 87 89 93 Respiratory 15 19 24 Rate Blood Pressure 131/76 117/86 (mmHg) O2 Sat by Pulse 99 97 98 Oximetry 02/28/17 02/28/17 02/28/17 22:00 23:00 23:24 Temperature 100.4 F 100.6 F 100.4 F Pulse Rate 81 82 72 Respiratory 20 19 19 Rate Blood Pressure 122/70 123/99 (mmHg) O2 Sat by Pulse 97 96 93 Oximetry 02/28/17 03/01/17 03/01/17 23:42 00:00 01:00 Temperature 100.2 F 99.7 F Pulse Rate 78 78 Respiratory 17 18 17 Rate Blood Pressure 124/74 119/74 (mmHg) O2 Sat by Pulse 95 94 Oximetry 03/01/17 03/01/17 03/01/17 02:00 03:00 04:00 Temperature 99.5 F 99.3 F 99.1 F Pulse Rate 75 72 79 Respiratory 18 15 22 Rate Blood Pressure 124/67 137/78 139/72 (mmHg) O2 Sat by Pulse 96 95 95 Oximetry 03/01/17 03/01/17 03/01/17 05:00 05:46 06:00 Temperature 99.1 F 99.0 F Pulse Rate 76 78 Respiratory 18 15 13 Rate Blood Pressure 121/66 143/93 (mmHg) O2 Sat by Pulse 96 96 Oximetry 03/01/17 03/01/17 03/01/17 07:00 08:00 08:33 Temperature 98.8 F 98.8 F Pulse Rate 69 70 77 Respiratory 15 18 17 Rate Blood Pressure 146/74 136/82 (mmHg) O2 Sat by Pulse 97 97 98 Oximetry 03/01/17 03/01/17 03/01/17 09:00 10:00 11:00 Temperature 98.8 F 98.8 F 99.0 F Pulse Rate 83 78 77 Respiratory 17 13 16 Rate Blood Pressure 122/73 146/79 121/71 (mmHg) O2 Sat by Pulse 99 96 98 Oximetry 03/01/17 03/01/17 11:39 12:00 Temperature 99.1 F Pulse Rate 76 Respiratory 18 18 Rate Blood Pressure 139/70 (mmHg) O2 Sat by Pulse 96 Oximetry Oxygen Devices in Use Now: High Flow Heated Nasal Cannula Appearance: Patient is a 71yo female who appears stated age and is sitting in the bed in [facility]. Eyes: No Scleral Icterus, PERRLA Ears/Nose/Mouth/Throat: NL Teeth, Lips, Gums, Clear Oropharnyx, - - Dry Mucous Membranes. Neck: NL Appearance and Movements; NL JVP, Trachea Midline Respiratory: Symmetrical Chest Expansion and Respiratory Effort, - - Expiratory wheezes in all lung estrada, improved exam from yesterday. Cardiovascular: NL Sounds; No Murmurs; No JVD, No Edema, - - Irregularly irregular rhythm. Pulses 2+ in B/L Radial, DP, PT areas. Abdominal: NL Sounds; No Tenderness; No Distention, No Hepatosplenomegaly Lymphatic: No Cervical Adenopathy Extremities: No Edema, No Clubbing, Cyanosis Skin: No Nodules or Sclerosis, - - Significant sclerosis of skin on LE without weeping or open areas. Improved since yesterday with lotion. Neurological: Alert and Oriented x 3, NL Muscle Strength and Tone Result Diagrams: 02/28/17 05:26 03/01/17 05:35 Additional Lab and Data: Lab Results 02/27/17 02/27/17 02/27/17 Range/Units 16:46 16:50 16:50 WBC 6.7 (3.5-10.8) 10^3/ul RBC 4.34 (4.0-5.4) 10^6/ul Hgb 13.0 (12.0-16.0) g/dl Hct 40 (35-47) % MCV 93 (80-97) fL MCH 30 (27-31) pg MCHC 32 (31-36) g/dl RDW 16 H (10.5-15) % Plt Count 137 L (150-450) 10^3/ul MPV 9 (7.4-10.4) um3 Neut % (Auto) 87.8 H (38-83) % Lymph % (Auto) 5.2 L (25-47) % Meeker % (Auto) 5.2 (1-9) % Eos % (Auto) 0.4 (0-6) % Baso % (Auto) 1.4 (0-2) % Absolute Neuts (auto) 5.9 (1.5-7.7) 10^3/ul Absolute Lymphs (auto) 0.3 L (1.0-4.8) 10^3/ul Absolute Monos (auto) 0.3 (0-0.8) 10^3/ul Absolute Eos (auto) 0 (0-0.6) 10^3/ul Absolute Basos (auto) 0.1 (0-0.2) 10^3/ul Absolute Nucleated RBC 0 10^3/ul Nucleated RBC % 0 INR (Anticoag Therapy) (0.89-1.11) APTT (26.0-36.3) seconds Patient Temperature Not Reportable ABG pH 7.25 L (7.35-7.45) ABG pH (Temp Correct) Not Reportable ABG pCO2 59 H (35-45) mmHg ABG pCO2 (Temp Corrct Not Reportable ABG pO2 60 L (80-100) mmHg ABG pO2 (Temp Correct Not Reportable ABG HCO3 22.7 (19-31) mmol/L ABG O2 Saturation 90.6 L (95-98) % ABG Base Excess -2.4 L (-2.0-2.0) Respiration Rate Not Reportable O2 Delivery Device oxymask Ventilator Type Not Reportable Vent Mode Not Reportable FiO2 10 Inspiratory Time Not Reportable PEEP Not Reportable Pressure Support Not Reportable Pressure Control Not Reportable EPAP Not Reportable IPAP Not Reportable BiPAP Not Reportable Sodium 136 (133-145) mmol/L Potassium 4.3 (3.5-5.0) mmol/L Chloride 104 (101-111) mmol/L Carbon Dioxide 25 (22-32) mmol/L Anion Gap 7 (2-11) mmol/L BUN 19 (6-24) mg/dL Creatinine 1.19 H (0.51-0.95) mg/dL Est GFR ( Amer) 57.5 (>60) Est GFR (Non-Af Amer) 44.7 (>60) BUN/Creatinine Ratio 16.0 (8-20) Glucose 110 H (70-100) mg/dL Lactic Acid (0.5-2.0) mmol/L Calcium 9.4 (8.6-10.3) mg/dL Total Bilirubin 1.40 H (0.2-1.0) mg/dL AST 8 L (13-39) U/L ALT 5 L (7-52) U/L Alkaline Phosphatase 71 (34-104) U/L Troponin I 0.04 H* (<0.04) ng/mL B-Natriuretic Peptide ( - 100) pg/mL Total Protein 7.1 (6.4-8.9) g/dL Albumin 3.7 (3.2-5.2) g/dL Globulin 3.4 (2-4) g/dL Albumin/Globulin Ratio 1.1 (1-3) Procalcitonin (<0.6) ng/mL 02/27/17 02/27/17 02/27/17 Range/Units 16:50 16:50 16:50 WBC (3.5-10.8) 10^3/ul RBC (4.0-5.4) 10^6/ul Hgb (12.0-16.0) g/dl Hct (35-47) % MCV (80-97) fL MCH (27-31) pg MCHC (31-36) g/dl RDW (10.5-15) % Plt Count (150-450) 10^3/ul MPV (7.4-10.4) um3 Neut % (Auto) (38-83) % Lymph % (Auto) (25-47) % Meeker % (Auto) (1-9) % Eos % (Auto) (0-6) % Baso % (Auto) (0-2) % Absolute Neuts (auto) (1.5-7.7) 10^3/ul Absolute Lymphs (auto) (1.0-4.8) 10^3/ul Absolute Monos (auto) (0-0.8) 10^3/ul Absolute Eos (auto) (0-0.6) 10^3/ul Absolute Basos (auto) (0-0.2) 10^3/ul Absolute Nucleated RBC 10^3/ul Nucleated RBC % INR (Anticoag Therapy) 1.39 H (0.89-1.11) APTT 39.2 H (26.0-36.3) seconds Patient Temperature ABG pH (7.35-7.45) ABG pH (Temp Correct) ABG pCO2 (35-45) mmHg ABG pCO2 (Temp Corrct ABG pO2 (80-100) mmHg ABG pO2 (Temp Correct ABG HCO3 (19-31) mmol/L ABG O2 Saturation (95-98) % ABG Base Excess (-2.0-2.0) Respiration Rate O2 Delivery Device Ventilator Type Vent Mode FiO2 Inspiratory Time PEEP Pressure Support Pressure Control EPAP IPAP BiPAP Sodium (133-145) mmol/L Potassium (3.5-5.0) mmol/L Chloride (101-111) mmol/L Carbon Dioxide (22-32) mmol/L Anion Gap (2-11) mmol/L BUN (6-24) mg/dL Creatinine (0.51-0.95) mg/dL Est GFR ( Amer) (>60) Est GFR (Non-Af Amer) (>60) BUN/Creatinine Ratio (8-20) Glucose (70-100) mg/dL Lactic Acid 1.2 (0.5-2.0) mmol/L Calcium (8.6-10.3) mg/dL Total Bilirubin (0.2-1.0) mg/dL AST (13-39) U/L ALT (7-52) U/L Alkaline Phosphatase (34-104) U/L Troponin I (<0.04) ng/mL B-Natriuretic Peptide 1071 H ( - 100) pg/mL Total Protein (6.4-8.9) g/dL Albumin (3.2-5.2) g/dL Globulin (2-4) g/dL Albumin/Globulin Ratio (1-3) Procalcitonin (<0.6) ng/mL 02/27/17 Range/Units 16:50 WBC (3.5-10.8) 10^3/ul RBC (4.0-5.4) 10^6/ul Hgb (12.0-16.0) g/dl Hct (35-47) % MCV (80-97) fL MCH (27-31) pg MCHC (31-36) g/dl RDW (10.5-15) % Plt Count (150-450) 10^3/ul MPV (7.4-10.4) um3 Neut % (Auto) (38-83) % Lymph % (Auto) (25-47) % Meeker % (Auto) (1-9) % Eos % (Auto) (0-6) % Baso % (Auto) (0-2) % Absolute Neuts (auto) (1.5-7.7) 10^3/ul Absolute Lymphs (auto) (1.0-4.8) 10^3/ul Absolute Monos (auto) (0-0.8) 10^3/ul Absolute Eos (auto) (0-0.6) 10^3/ul Absolute Basos (auto) (0-0.2) 10^3/ul Absolute Nucleated RBC 10^3/ul Nucleated RBC % INR (Anticoag Therapy) (0.89-1.11) APTT (26.0-36.3) seconds Patient Temperature ABG pH (7.35-7.45) ABG pH (Temp Correct) ABG pCO2 (35-45) mmHg ABG pCO2 (Temp Corrct ABG pO2 (80-100) mmHg ABG pO2 (Temp Correct ABG HCO3 (19-31) mmol/L ABG O2 Saturation (95-98) % ABG Base Excess (-2.0-2.0) Respiration Rate O2 Delivery Device Ventilator Type Vent Mode FiO2 Inspiratory Time PEEP Pressure Support Pressure Control EPAP IPAP BiPAP Sodium (133-145) mmol/L Potassium (3.5-5.0) mmol/L Chloride (101-111) mmol/L Carbon Dioxide (22-32) mmol/L Anion Gap (2-11) mmol/L BUN (6-24) mg/dL Creatinine (0.51-0.95) mg/dL Est GFR ( Amer) (>60) Est GFR (Non-Af Amer) (>60) BUN/Creatinine Ratio (8-20) Glucose (70-100) mg/dL Lactic Acid (0.5-2.0) mmol/L Calcium (8.6-10.3) mg/dL Total Bilirubin (0.2-1.0) mg/dL AST (13-39) U/L ALT (7-52) U/L Alkaline Phosphatase (34-104) U/L Troponin I (<0.04) ng/mL B-Natriuretic Peptide ( - 100) pg/mL Total Protein (6.4-8.9) g/dL Albumin (3.2-5.2) g/dL Globulin (2-4) g/dL Albumin/Globulin Ratio (1-3) Procalcitonin < 0.1 (<0.6) ng/mL Microbiology and Other Data: Microbiology 02/27/17 20:56 Urine Culture - Preliminary Urine Escherichia Coli 02/27/17 20:56 Legionella Urinary Antigen - Final Urine Negative Legionella Streptococcus pneumoniae Ag Screen - Final Negative S. pneumo Antigen 02/27/17 17:45 Nasal Screen MRSA (PCR)(MILEY) - Final Nasal Mrsa Negative 02/27/17 17:45 Influenza Types A,B Antigen (MILEY) - Final Nasal Specimen received for Influenza A/B Molecular testing Assess/Plan/Problems-Billing Assessment: Patient is a 71yo female with a PMH significant for COPD, HTN, DM II, Cerebellar Aneurysm, Afib, and a history of seizures who presents with a COPD exacerbation and acute respiratory failure who was able to be weaned off of BiPaP and is now on Vapotherm at 15L. - Patient Problems (1) Acute respiratory failure Current Visit: Yes Status: Acute Code(s): J96.00 - ACUTE RESPIRATORY FAILURE , UNSP W HYPOXIA OR HYPERCAPNIA SNOMED Code(s): 17759845 Comment: Due to COPD exacerbation and pneumonia, stable, on 15L Vapotherm currently. Unable to wean today. (2) Sepsis Current Visit: Yes Status: Acute Comment: Due to CAP. Patient met criteria by SIRS at admission, now improved. SOFA score of 10 at admission. Improving (3) Community acquired bacterial pneumonia Current Visit: Yes Status: Acute Code(s): J15.9 - UNSPECIFIED BACTERIAL PNEUMONIA SNOMED Code(s): 072728822 Comment: Febrile with Infiltrate on CXR, leukocytosis and with previously present pleural effusion. Continue Ceftriaxone and Azithromycin. Strep Pneumo and Legionella antigen negative. Flu test negative. (4) COPD (chronic obstructive pulmonary disease) Current Visit: Yes Status: Acute Code(s): J44.9 - CHRONIC OBSTRUCTIVE PULMONARY DISEASE, UNSPECIFIED SNOMED Code(s): 47693089 Comment: Currently in exacerbation, continue scheduled inhalers, IV Methylprednisolone, antibiotics and wean O2 as tolerated. (5) Afib Current Visit: Yes Status: Acute Code(s): I48.91 - UNSPECIFIED ATRIAL FIBRILLATION SNOMED Code(s): 42811674 Comment: On home metoprolol, diltiazem and Xarelto. Continue metoprolol, hold diltiazem. Continue xarelto. Normotensive and rate controlled. (6) Diabetes Current Visit: Yes Status: Acute Code(s): E11.9 - TYPE 2 DIABETES MELLITUS WITHOUT COMPLICATIONS SNOMED Code(s): 39259615 Comment: On no home medications. SSI insulin. FSBG between 168 and 178. Probably related to steroids. Will transition to basal insulin if indicated. (7) Depression Current Visit: Yes Status: Acute Code(s): F32.9 - MAJOR DEPRESSIVE DISORDER , SINGLE EPISODE, UNSPECIFIED SNOMED Code(s): 14553354 Comment: No home medications, will monitor for symptoms. (8) ROTARY DRIER OPERATOR (ventriculoperitoneal) shunt status Current Visit: Yes Status: Acute Comment: Visible on CT scan. Slightly increased hygroma. Will monitor for deterioration in mental status independant of respiratory status and will rescan head if needed. (9) Jain esophagus Current Visit: Yes Status: Acute Code(s): K22.70 - JAIN'S ESOPHAGUS WITHOUT DYSPLASIA SNOMED Code(s): 922244023 Comment: Continue home omeprazole. (10) HTN (hypertension) Current Visit: Yes Status: Acute Code(s): I10 - ESSENTIAL (PRIMARY) HYPERTENSION SNOMED Code(s): 04196748 Comment: Normotensive, continue metoprolol, hold diltiazem and amlodipine. (11) Chronic acquired lymphedema Current Visit: Yes Status: Acute Code(s): I89.0 - LYMPHEDEMA, NOT ELSEWHERE CLASSIFIED SNOMED Code(s): 20416611 Comment: Of unknown duration and severity. No current open areas or weeping. Appreciate input from wound nurse. Will continue to monitor and would recommend outpatient follow up with a lymphedema clinic. (12) Abnormal urinalysis Current Visit: Yes Status: Acute Code(s): R82.90 - UNSPECIFIED ABNORMAL FINDINGS IN URINE SNOMED Code(s): 070330928 Comment: Indicating possible UTI. No symptoms, E. Coli 10-25K colonies, being treated with Ceftriaxone for PNA. (13) DVT prophylaxis Current Visit: Yes Status: Acute Code(s): UQA5537 - SNOMED Code(s): 338711379 Comment: Marianne (14) Full code status Current Visit: Yes Status: Acute Code(s): Z78.9 - OTHER SPECIFIED HEALTH STATUS SNOMED Code(s): 977979184 Status and Disposition: Patient is admitted to the ICU on Vapotherm. Will wean O2 and transfer to Telemetry when able.
[2017-03-01] MEDS: cefTRIAXone VIAL(*) 1,000 MG in NS 0.9% 50 ML* 50 ML IVPB SCH (18:00)
[2017-03-01] MEDS: Azithromycin IV(*) 250 MG in NS 0.9% 250 ML* 250 ML IVPB SCH (20:21)
[2017-03-02] MEDS: Insulin LISPRO* 1 UNITS UNIT SUBCUT SCH ×5 (00:20→20:54)
[2017-03-02] MEDS: methylPREDNISolone 125 MG* 2 ML VIAL IV SCH ×3 (02:06→17:37)
[2017-03-02 05:53] LABS: Hematocrit 38 % (35-47); Hemoglobin 12.3 g/dl (12.0-16.0); Mean Corpuscular HGB Conc 32 g/dl (31-36); Mean Corpuscular Hemoglobin 30 pg (27-31); Mean Corpuscular Volume 93 fL (80-97); Mean Platelet Volume 8 um3 (7.4-10.4); Red Blood Count 4.13 10^6/ul (4.0-5.4); Red Cell Distribution Width 16 % (10.5-15); White Blood Count 9.5 10^3/ul (3.5-10.8)
[2017-03-02 06:08] LABS: Albumin 3.1 g/dL (3.2-5.2); BUN/Creatinine Ratio 29.9 (8-20); C Reactive Protein 4.03 mg/L (< 5.00); Calcium 8.5 mg/dL (8.6-10.3); EGFR Non-African American 50.6 (>60); Potassium 4.8 mmol/L (3.5-5.0); Total Bilirubin 0.5 mg/dL (0.2-1.0); Total Protein 6.1 g/dL (6.4-8.9)
[2017-03-02] MEDS: Mometasone/Formoter 200/5 MDI INH SCH ×2 (07:54→20:50)
[2017-03-02] MEDS: Tiotropium CAP.INH* CAP.INH/18 MCG (USE ORDER SET !) INH SCH (07:54)
--- NOTE | 2017-03-02 08:01 | RAD ---
INDICATION: Pulmonary [id number] COMPARISON: Chest x-ray February 27, 2017 TECHNIQUE: An AP portable view obtained at 0735 hours is submitted. FINDINGS: Bones/Soft Tissues: There are no acute bony findings. There is a right-sided FILM CRITIC shunt Cardiomediastinal: The heart is normal in size. Lungs: The left lung is clear. There is airspace disease in right lung base compatible with pleural fluid and/or combination of pleural fluid, atelectasis, and infiltrate. There is mild worsening. Pleura: As above. No left-sided effusion. Other: None IMPRESSION: MILD WORSENING IN AIRSPACE DISEASE IN RIGHT LUNG BASE.
[2017-03-02] MEDS: Rivaroxaban TAB(*) 20 MG TAB PO SCH (08:42)
[2017-03-02] MEDS: Atenolol TAB* 50 MG PO SCH ×2 (08:42→20:38)
[2017-03-02] MEDS: Nystatin TOP POWDER* 15 GM BTL TOPICAL SCH ×3 (08:43→20:37)
[2017-03-02] MEDS: guaiFENesin ER TAB 600 MG PO SCH ×2 (08:43→20:37)
[2017-03-02] MEDS: Omeprazole CAP* 20 MG PO SCH ×2 (08:43→20:37)
[2017-03-02] MEDS: Albuterol/Ipratropium NEB.SOL* Albuterol 2.5 MG/Ipratropium 0.5 MG 3 ML INH SCH ×4 (08:58→20:49)
--- NOTE | 2017-03-02 17:15 | PN ---
Subjective Date of Service: 03/02/17 Interval History: Patient much more alert today and able to get up to the chair and able to be weaned off of Vapotherm to oxymask at 10-15L. Patient states her SOB is stable and has no other complaints. PT/OT ordered. No F/C, N/V, Abd pain, Constipation , Diarrhea, or other pain. Family History: Unchanged from Admission Social History: Unchanged from Admission Past Medical History: Unchanged from Admission Objective Active Medications: Acetaminophen (Tylenol Tab*) 650 mg PO Q4H PRN PRN Reason: FEVER/PAIN Albuterol (Ventolin 2.5 Mg/3 Ml Neb.Cherie*) 2.5 mg INH Q2H PRN PRN Reason: SOB/WHEEZING Albuterol/Ipratropium (Duoneb (Albuterol 2.5 Mg/Ipratropium 0.5 Mg)) 1 neb INH Q4H [facility] Last Admin: 03/02/17 16:49 Dose: 1 neb Atenolol (Tenormin Tab*) 50 mg PO BID [facility] Last Admin: 03/02/17 08:42 Dose: 50 mg Dextrose (D50w Syringe 50 Ml*) 12.5 gm IV PUSH .FOR FS < 60 - SS PRN PRN Reason: FS < 60 Guaifenesin (Mucinex*) 1,200 mg PO BID [facility] Last Admin: 03/02/17 08:43 Dose: 1,200 mg Hydralazine HCl (Apresoline Iv*) 5 mg IV SLOW PU Q6H PRN PRN Reason: BLOOD PRESSURE Last Admin: 02/27/17 19:43 Dose: 5 mg Ceftriaxone Sodium 1,000 mg/ (Sodium Chloride) 50 mls @ 200 mls/hr IVPB Q24H [facility] Last Admin: 03/01/17 18:00 Dose: 200 mls/hr Azithromycin 250 mg/ Sodium (Chloride) 250 mls @ 250 mls/hr IVPB Q24H [facility] Last Admin: 03/01/17 20:21 Dose: 250 mls/hr Insulin Human Lispro (Humalog*) 0 units SUBCUT ACHS [facility] PRN Reason: Protocol Methylprednisolone Sodium Succinate (Solu-Medrol 125mg *) 60 mg IV Q8H [facility] Last Admin: 03/02/17 10:46 Dose: 60 mg Mometasone Furoate/Formoterol Fumar (Dulera 200/5 Mdi*) 2 puff INH BID [facility] Last Admin: 03/02/17 07:54 Dose: 2 puff Nystatin (Nystatin Top Powder*) 1 applic TOPICAL TID [facility] Last Admin: 03/02/17 14:01 Dose: 1 applic Omeprazole (Prilosec Cap*) 20 mg PO BID [facility] Last Admin: 03/02/17 08:43 Dose: 20 mg Ondansetron HCl (Zofran Inj*) 4 mg IV Q6H PRN PRN Reason: NAUSEA Rivaroxaban (Xarelto (*)) 20 mg PO DAILY [facility] Last Admin: 03/02/17 08:42 Dose: 20 mg Tiotropium [place] (Spiriva Cap.Inh*) 1 cap INH DAILY [facility] Last Admin: 03/02/17 07:54 Dose: 1 cap Vital Signs 03/01/17 03/01/17 03/01/17 18:00 19:00 19:29 Temperature 99.7 F 99.7 F Pulse Rate 93 86 76 Respiratory 25 22 19 Rate Blood Pressure 115/70 126/83 (mmHg) O2 Sat by Pulse 95 96 94 Oximetry 03/01/17 03/01/17 03/01/17 20:00 20:01 21:00 Temperature 100.0 F 100.0 F 100.0 F Pulse Rate 91 81 85 Respiratory 20 21 21 Rate Blood Pressure 128/63 (mmHg) O2 Sat by Pulse 91 92 92 Oximetry 03/01/17 03/01/17 03/01/17 21:01 22:00 22:32 Temperature 100.0 F 100.0 F Pulse Rate 93 85 Respiratory 22 39 22 Rate Blood Pressure 123/78 123/60 (mmHg) O2 Sat by Pulse 93 91 Oximetry 03/01/17 03/01/17 03/02/17 23:00 23:23 00:00 Temperature 100.0 F 100.0 F Pulse Rate 93 80 Respiratory 19 24 20 Rate Blood Pressure 129/75 (mmHg) O2 Sat by Pulse 93 93 Oximetry 03/02/17 03/02/17 03/02/17 00:01 00:08 00:26 Temperature 100.0 F 99.9 F Pulse Rate 84 82 Respiratory 23 21 20 Rate Blood Pressure 129/85 (mmHg) O2 Sat by Pulse 93 94 Oximetry 03/02/17 03/02/17 03/02/17 01:00 01:01 02:00 Temperature 99.5 F 99.5 F 99.1 F Pulse Rate 87 79 85 Respiratory 22 19 16 Rate Blood Pressure 120/67 128/90 (mmHg) O2 Sat by Pulse 93 93 90 Oximetry 03/02/17 03/02/17 03/02/17 02:17 03:00 03:01 Temperature 99.1 F 99.1 F Pulse Rate 79 82 Respiratory 19 17 22 Rate Blood Pressure 133/65 (mmHg) O2 Sat by Pulse 91 91 Oximetry 03/02/17 03/02/17 03/02/17 04:00 04:01 04:05 Temperature 99.1 F 99.0 F Pulse Rate 88 65 Respiratory 21 20 14 Rate Blood Pressure 120/74 (mmHg) O2 Sat by Pulse 90 93 Oximetry 03/02/17 03/02/17 03/02/17 05:00 05:01 06:00 Temperature 98.6 F 98.8 F 98.8 F Pulse Rate 70 75 85 Respiratory 16 19 18 Rate Blood Pressure 119/73 (mmHg) O2 Sat by Pulse 96 96 92 Oximetry 03/02/17 03/02/17 03/02/17 06:01 07:00 07:01 Temperature 98.8 F 98.8 F 98.8 F Pulse Rate 78 72 77 Respiratory 18 20 15 Rate Blood Pressure 154/73 118/69 (mmHg) O2 Sat by Pulse 95 96 98 Oximetry 03/02/17 03/02/17 03/02/17 08:00 09:00 09:01 Temperature 98.8 F 99.0 F 99.0 F Pulse Rate 76 80 87 Respiratory 20 24 26 Rate Blood Pressure 141/80 146/78 (mmHg) O2 Sat by Pulse 90 89 93 Oximetry 03/02/17 03/02/17 03/02/17 09:04 10:00 10:01 Temperature 98.6 F 98.6 F Pulse Rate 66 75 76 Respiratory 14 22 21 Rate Blood Pressure 131/84 (mmHg) O2 Sat by Pulse 92 93 95 Oximetry 03/02/17 03/02/17 03/02/17 11:00 11:01 12:00 Temperature 98.2 F 98.2 F 98.4 F Pulse Rate 82 74 73 Respiratory 24 21 23 Rate Blood Pressure 124/73 (mmHg) O2 Sat by Pulse 92 94 92 Oximetry 11/04/0603/02/17 03/02/17 12:01 12:19 13:00 Temperature 98.4 F 98.6 F Pulse Rate 77 75 74 Respiratory 22 22 16 Rate Blood Pressure 140/87 (mmHg) O2 Sat by Pulse 93 93 90 Oximetry 03/02/17 03/02/17 03/02/17 13:01 14:00 14:01 Temperature 98.6 F 98.4 F 98.4 F Pulse Rate 75 96 Respiratory 20 24 22 Rate Blood Pressure 127/91 120/70 (mmHg) O2 Sat by Pulse 91 89 Oximetry 03/02/17 03/02/17 03/02/17 15:00 15:01 16:00 Temperature 98.6 F 98.6 F 98.8 F Pulse Rate 87 72 81 Respiratory 18 24 24 Rate Blood Pressure 116/80 125/71 (mmHg) O2 Sat by Pulse 90 90 94 Oximetry 03/02/17 03/02/17 03/02/17 17:00 17:01 17:04 Temperature 98.6 F 98.6 F Pulse Rate 89 80 78 Respiratory 19 22 18 Rate Blood Pressure 131/81 (mmHg) O2 Sat by Pulse 93 93 93 Oximetry Oxygen Devices in Use Now: OxyMask Appearance: Patient is a 71yo female who appears stated age and is sitting in the chair in NAD. Eyes: No Scleral Icterus, PERRLA Ears/Nose/Mouth/Throat: NL Teeth, Lips, Gums, Clear Oropharnyx, Mucous Membranes Moist Neck: NL Appearance and Movements; NL JVP, Trachea Midline Respiratory: Symmetrical Chest Expansion and Respiratory Effort, - - Slight wheezes in all lung estrada, stable from previous exam. Cardiovascular: NL Sounds; No Murmurs; No JVD, RRR, No Edema Abdominal: NL Sounds; No Tenderness; No Distention, No Hepatosplenomegaly Lymphatic: No Cervical Adenopathy Extremities: No Edema, - - Dry skin on legs much improved from admission. No signs of increased swelling due to lymphedema. Skin: No Nodules or Sclerosis Neurological: Alert and Oriented x 3, NL Muscle Strength and Tone Result Diagrams: 03/02/17 05:40 03/02/17 05:40 Additional Lab and Data: Lab Results 02/27/17 02/27/17 02/27/17 Range/Units 16:46 16:50 16:50 WBC 6.7 (3.5-10.8) 10^3/ul RBC 4.34 (4.0-5.4) 10^6/ul Hgb 13.0 (12.0-16.0) g/dl Hct 40 (35-47) % MCV 93 (80-97) fL MCH 30 (27-31) pg MCHC 32 (31-36) g/dl RDW 16 H (10.5-15) % Plt Count 137 L (150-450) 10^3/ul MPV 9 (7.4-10.4) um3 Neut % (Auto) 87.8 H (38-83) % Lymph % (Auto) 5.2 L (25-47) % [place] % (Auto) 5.2 (1-9) % Eos % (Auto) 0.4 (0-6) % Baso % (Auto) 1.4 (0-2) % Absolute Neuts (auto) 5.9 (1.5-7.7) 10^3/ul Absolute Lymphs (auto) 0.3 L (1.0-4.8) 10^3/ul Absolute Monos (auto) 0.3 (0-0.8) 10^3/ul Absolute Eos (auto) 0 (0-0.6) 10^3/ul Absolute Basos (auto) 0.1 (0-0.2) 10^3/ul Absolute Nucleated RBC 0 10^3/ul Nucleated RBC % 0 INR (Anticoag Therapy) (0.89-1.11) APTT (26.0-36.3) seconds Patient Temperature Not Reportable ABG pH 7.25 L (7.35-7.45) ABG pH (Temp Correct) Not Reportable ABG pCO2 59 H (35-45) mmHg ABG pCO2 (Temp Corrct Not Reportable ABG pO2 60 L (80-100) mmHg ABG pO2 (Temp Correct Not Reportable ABG HCO3 22.7 (19-31) mmol/L ABG O2 Saturation 90.6 L (95-98) % ABG Base Excess -2.4 L (-2.0-2.0) Respiration Rate Not Reportable O2 Delivery Device oxymask Ventilator Type Not Reportable Vent Mode Not Reportable FiO2 10 Inspiratory Time Not Reportable PEEP Not Reportable Pressure Support Not Reportable Pressure Control Not Reportable EPAP Not Reportable IPAP Not Reportable BiPAP Not Reportable Sodium 136 (133-145) mmol/L Potassium 4.3 (3.5-5.0) mmol/L Chloride 104 (101-111) mmol/L Carbon Dioxide 25 (22-32) mmol/L Anion Gap 7 (2-11) mmol/L BUN 19 (6-24) mg/dL Creatinine 1.19 H (0.51-0.95) mg/dL Est GFR ( Amer) 57.5 (>60) Est GFR (Non-Af Amer) 44.7 (>60) BUN/Creatinine Ratio 16.0 (8-20) Glucose 110 H (70-100) mg/dL Lactic Acid (0.5-2.0) mmol/L Calcium 9.4 (8.6-10.3) mg/dL Total Bilirubin 1.40 H (0.2-1.0) mg/dL AST 8 L (13-39) U/L ALT 5 L (7-52) U/L Alkaline Phosphatase 71 (34-104) U/L Troponin I 0.04 H* (<0.04) ng/mL B-Natriuretic Peptide ( - 100) pg/mL Total Protein 7.1 (6.4-8.9) g/dL Albumin 3.7 (3.2-5.2) g/dL Globulin 3.4 (2-4) g/dL Albumin/Globulin Ratio 1.1 (1-3) Procalcitonin (<0.6) ng/mL 02/27/17 02/27/17 02/27/17 Range/Units 16:50 16:50 16:50 WBC (3.5-10.8) 10^3/ul RBC (4.0-5.4) 10^6/ul Hgb (12.0-16.0) g/dl Hct (35-47) % MCV (80-97) fL MCH (27-31) pg MCHC (31-36) g/dl RDW (10.5-15) % Plt Count (150-450) 10^3/ul MPV (7.4-10.4) um3 Neut % (Auto) (38-83) % Lymph % (Auto) (25-47) % [place] % (Auto) (1-9) % Eos % (Auto) (0-6) % Baso % (Auto) (0-2) % Absolute Neuts (auto) (1.5-7.7) 10^3/ul Absolute Lymphs (auto) (1.0-4.8) 10^3/ul Absolute Monos (auto) (0-0.8) 10^3/ul Absolute Eos (auto) (0-0.6) 10^3/ul Absolute Basos (auto) (0-0.2) 10^3/ul Absolute Nucleated RBC 10^3/ul Nucleated RBC % INR (Anticoag Therapy) 1.39 H (0.89-1.11) APTT 39.2 H (26.0-36.3) seconds Patient Temperature ABG pH (7.35-7.45) ABG pH (Temp Correct) ABG pCO2 (35-45) mmHg ABG pCO2 (Temp Corrct ABG pO2 (80-100) mmHg ABG pO2 (Temp Correct ABG HCO3 (19-31) mmol/L ABG O2 Saturation (95-98) % ABG Base Excess (-2.0-2.0) Respiration Rate O2 Delivery Device Ventilator Type Vent Mode FiO2 Inspiratory Time PEEP Pressure Support Pressure Control EPAP IPAP BiPAP Sodium (133-145) mmol/L Potassium (3.5-5.0) mmol/L Chloride (101-111) mmol/L Carbon Dioxide (22-32) mmol/L Anion Gap (2-11) mmol/L BUN (6-24) mg/dL Creatinine (0.51-0.95) mg/dL Est GFR ( Amer) (>60) Est GFR (Non-Af Amer) (>60) BUN/Creatinine Ratio (8-20) Glucose (70-100) mg/dL Lactic Acid 1.2 (0.5-2.0) mmol/L Calcium (8.6-10.3) mg/dL Total Bilirubin (0.2-1.0) mg/dL AST (13-39) U/L ALT (7-52) U/L Alkaline Phosphatase (34-104) U/L Troponin I (<0.04) ng/mL B-Natriuretic Peptide 1071 H ( - 100) pg/mL Total Protein (6.4-8.9) g/dL Albumin (3.2-5.2) g/dL Globulin (2-4) g/dL Albumin/Globulin Ratio (1-3) Procalcitonin (<0.6) ng/mL Microbiology and Other Data: Microbiology 02/27/17 20:56 Urine Culture - Preliminary Urine Escherichia Coli 02/27/17 20:56 Legionella Urinary Antigen - Final Urine Negative Legionella Streptococcus pneumoniae Ag Screen - Final Negative S. pneumo Antigen 02/27/17 17:45 Nasal Screen MRSA (PCR)([facility]) - Final Nasal Mrsa Negative 02/27/17 17:45 Influenza Types A,B Antigen (MI[facility]) - Final Nasal Specimen received for Influenza A/B Molecular testing Assess/Plan/Problems-Billing Assessment: Patient is a 71yo female with a PMH significant for COPD, HTN, DM II, Cerebellar Aneurysm, Afib, and a history of seizures who presents with a COPD exacerbation and acute respiratory failure who was able to be weaned off of Vapotherm and is now on oxymask at 10L. - Patient Problems (1) Acute respiratory failure Current Visit: Yes Status: Acute Code(s): J96.00 - ACUTE RESPIRATORY FAILURE , UNSP W HYPOXIA OR HYPERCAPNIA SNOMED Code(s): 58128341 Comment: Due to COPD exacerbation and pneumonia, stable, on 10L Oxymask currently. Could possibly be transferred to telemetry tomorrow. Change IV steriods to PO. (2) Sepsis Current Visit: Yes Status: Acute Comment: Due to CAP. Patient met criteria by SIRS at admission, now improved. SOFA score of 10 at admission. Now resolved. (3) Community acquired bacterial pneumonia Current Visit: Yes Status: Acute Code(s): J15.9 - UNSPECIFIED BACTERIAL PNEUMONIA SNOMED Code(s): 510191904 Comment: Febrile with Infiltrate on CXR, leukocytosis and with previously present pleural effusion. Continue Ceftriaxone and Azithromycin. Strep Pneumo and Legionella antigen negative. Flu test negative. (4) COPD (chronic obstructive pulmonary disease) Current Visit: Yes Status: Acute Code(s): J44.9 - CHRONIC OBSTRUCTIVE PULMONARY DISEASE, UNSPECIFIED SNOMED Code(s): 03729916 Comment: Currently in exacerbation, continue scheduled inhalers, Start PO prednisone., antibiotics and wean O2 as tolerated. (5) Afib Current Visit: Yes Status: Acute Code(s): I48.91 - UNSPECIFIED ATRIAL FIBRILLATION SNOMED Code(s): 69745934 Comment: On home metoprolol, diltiazem and Xarelto. Continue metoprolol, hold diltiazem. Continue xarelto. Normotensive and rate controlled. (6) Diabetes Current Visit: Yes Status: Acute Code(s): E11.9 - TYPE 2 DIABETES MELLITUS WITHOUT COMPLICATIONS SNOMED Code(s): 87273057 Comment: On no home medications. SSI insulin. FSBG swtiched to ACHS with inproved oral intake. Probably related to steroids. Will transition to basal insulin if indicated. (7) Depression Current Visit: Yes Status: Acute Code(s): F32.9 - MAJOR DEPRESSIVE DISORDER , SINGLE EPISODE, UNSPECIFIED SNOMED Code(s): 51390894 Comment: No home medications, will monitor for symptoms. (8) HEALTH CARE TECHNICIAN (ventriculoperitoneal) shunt status Current Visit: Yes Status: Acute Comment: Visible on CT scan. Slightly increased hygroma. Will monitor for deterioration in mental status independant of respiratory status and will rescan head if needed. (9) Jain esophagus Current Visit: Yes Status: Acute Code(s): K22.70 - JAIN'S ESOPHAGUS WITHOUT DYSPLASIA SNOMED Code(s): 095554248 Comment: Continue home omeprazole. (10) HTN (hypertension) Current Visit: Yes Status: Acute Code(s): I10 - ESSENTIAL (PRIMARY) HYPERTENSION SNOMED Code(s): 49083308 Comment: Normotensive, continue metoprolol, hold diltiazem and amlodipine. (11) Chronic acquired lymphedema Current Visit: Yes Status: Acute Code(s): I89.0 - LYMPHEDEMA, NOT ELSEWHERE CLASSIFIED SNOMED Code(s): 69876118 Comment: Of unknown duration and severity. No current open areas or weeping. Appreciate input from wound nurse. Will continue to monitor and would recommend outpatient follow up with a lymphedema clinic. (12) Abnormal urinalysis Current Visit: Yes Status: Acute Code(s): R82.90 - UNSPECIFIED ABNORMAL FINDINGS IN URINE SNOMED Code(s): 063702396 Comment: Indicating possible UTI. No symptoms, E. Coli 10-25K colonies, being treated with Ceftriaxone for PNA. (13) DVT prophylaxis Current Visit: Yes Status: Acute Code(s): MXI2228 - SNOMED Code(s): 465527696 Comment: Marianne (14) Full code status Current Visit: Yes Status: Acute Code(s): Z78.9 - OTHER SPECIFIED HEALTH STATUS SNOMED Code(s): 057954755 Status and Disposition: Patient is admitted to the ICU on oxymask 10L currently. Will wean O2 and transfer to Telemetry when able.
[2017-03-02] MEDS: Insulin GLARGINE(*) 1 UNITS UNIT SUBCUT SCH (17:36)
[2017-03-02] MEDS: cefTRIAXone VIAL(*) 1,000 MG in NS 0.9% 50 ML* 50 ML IVPB SCH (17:59)
[2017-03-02] MEDS: Azithromycin IV(*) 250 MG in NS 0.9% 250 ML* 250 ML IVPB SCH (20:30)
[2017-03-03] MEDS: Albuterol/Ipratropium NEB.SOL* Albuterol 2.5 MG/Ipratropium 0.5 MG 3 ML INH SCH ×5 (01:46→20:10)
[2017-03-03] MEDS: methylPREDNISolone 125 MG* 2 ML VIAL IV SCH ×2 (01:48→11:10)
[2017-03-03 06:46] LABS: Hematocrit 40 % (35-47); Hemoglobin 12.8 g/dl (12.0-16.0); Mean Corpuscular HGB Conc 33 g/dl (31-36); Mean Corpuscular Hemoglobin 30 pg (27-31); Mean Corpuscular Volume 92 fL (80-97); Mean Platelet Volume 9 um3 (7.4-10.4); Red Blood Count 4.29 10^6/ul (4.0-5.4); Red Cell Distribution Width 15 % (10.5-15); White Blood Count 8.6 10^3/ul (3.5-10.8)
[2017-03-03 07:00] LABS: Calcium 8.6 mg/dL (8.6-10.3); Magnesium 2.1 mg/dL (1.9-2.7); Potassium 4.8 mmol/L (3.5-5.0)
[2017-03-03 08:41] LABS: BUN/Creatinine Ratio 32.7 (8-20)
[2017-03-03] MEDS: Tiotropium CAP.INH* CAP.INH/18 MCG (USE ORDER SET !) INH SCH (08:51)
[2017-03-03] MEDS: Mometasone/Formoter 200/5 MDI INH SCH ×2 (08:51→20:08)
[2017-03-03] MEDS: Atenolol TAB* 50 MG PO SCH ×2 (08:56→20:50)
[2017-03-03] MEDS: Rivaroxaban TAB(*) 20 MG TAB PO SCH (08:56)
[2017-03-03] MEDS: Omeprazole CAP* 20 MG PO SCH ×2 (08:56→20:51)
[2017-03-03] MEDS: Nystatin TOP POWDER* 15 GM BTL TOPICAL SCH ×3 (08:57→20:57)
[2017-03-03] MEDS: guaiFENesin ER TAB 600 MG PO SCH ×2 (08:57→20:51)
[2017-03-03] MEDS: Insulin LISPRO* 1 UNITS UNIT SUBCUT SCH ×4 (09:07→20:52)
[2017-03-03] MEDS: ceFUROXime TAB(*) 250 MG PO SCH ×2 (12:55→20:51)
--- NOTE | 2017-03-03 13:35 | PN ---
Subjective Date of Service: 03/03/17 Interval History: Patient is doing much better today, much less lethargic, satting well on 10L High Flow NC. Patient worked with PT/OT and was able to stand and go to the chair but is limited at home going back several months, relying on her sister for a large amount of help with ADLs. Patient states her SOB is improved, denies any CP, N/V, F/C, abdominal pain, Diarrhea, Constipation. Family History: Unchanged from Admission Social History: Unchanged from Admission Past Medical History: Unchanged from Admission Objective Active Medications: Acetaminophen (Tylenol Tab*) 650 mg PO Q4H PRN PRN Reason: FEVER/PAIN Albuterol (Ventolin 2.5 Mg/3 Ml Neb.Cherie*) 2.5 mg INH Q2H PRN PRN Reason: SOB/WHEEZING Albuterol/Ipratropium (Duoneb (Albuterol 2.5 Mg/Ipratropium 0.5 Mg)) 1 neb INH Q4H [facility] Last Admin: 03/03/17 08:51 Dose: 1 neb Atenolol (Tenormin Tab*) 50 mg PO BID [facility] Last Admin: 03/03/17 08:56 Dose: 50 mg Azithromycin (Zithromax Tab*) 250 mg PO QPM [facility] Cefuroxime Axetil (Ceftin Tab(*)) 500 mg PO BID [facility] Last Admin: 03/03/17 12:55 Dose: 500 mg Dextrose (D50w Syringe 50 Ml*) 12.5 gm IV PUSH .FOR FS < 60 - SS PRN PRN Reason: FS < 60 Guaifenesin (Mucinex*) 1,200 mg PO BID [facility] Last Admin: 03/03/17 08:57 Dose: 1,200 mg Hydralazine HCl (Apresoline Iv*) 5 mg IV SLOW PU Q6H PRN PRN Reason: BLOOD PRESSURE Last Admin: 02/27/17 19:43 Dose: 5 mg Insulin Glargine (Lantus(*)) 5 units SUBCUT Q24H [facility] Last Admin: 03/02/17 17:36 Dose: 5 units Insulin Human Lispro (Humalog*) 0 units SUBCUT ACHS [facility] PRN Reason: Protocol Last Admin: 03/03/17 12:55 Dose: 6 units Mometasone Furoate/Formoterol Fumar (Dulera 200/5 Mdi*) 2 puff INH BID [facility] Last Admin: 03/03/17 08:51 Dose: 2 puff Nystatin (Nystatin Top Powder*) 1 applic TOPICAL TID [facility] Last Admin: 03/03/17 08:57 Dose: 1 applic Omeprazole (Prilosec Cap*) 20 mg PO BID [facility] Last Admin: 03/03/17 08:56 Dose: 20 mg Ondansetron HCl (Zofran Inj*) 4 mg IV Q6H PRN PRN Reason: NAUSEA Prednisone (Deltasone Tab*) 60 mg PO QPM [facility] Rivaroxaban (Xarelto (*)) 20 mg PO DAILY [facility] Last Admin: 03/03/17 08:56 Dose: 20 mg Tiotropium [place] (Spiriva Cap.Inh*) 1 cap INH DAILY [facility] Last Admin: 03/03/17 08:51 Dose: 1 cap Vital Signs 03/02/17 03/02/17 03/02/17 14:00 14:01 15:00 Temperature 98.4 F 98.4 F 98.6 F Pulse Rate 96 87 Respiratory 24 22 18 Rate Blood Pressure 120/70 (mmHg) O2 Sat by Pulse 89 90 Oximetry 03/02/17 03/02/17 03/02/17 15:01 16:00 17:00 Temperature 98.6 F 98.8 F 98.6 F Pulse Rate 72 81 89 Respiratory 24 24 19 Rate Blood Pressure 116/80 125/71 (mmHg) O2 Sat by Pulse 90 94 93 Oximetry 03/02/17 03/02/17 03/02/17 17:01 17:04 18:00 Temperature 98.6 F 99.0 F Pulse Rate 80 78 103 Respiratory 22 18 24 Rate Blood Pressure 131/81 (mmHg) O2 Sat by Pulse 93 93 92 Oximetry 03/02/17 03/02/17 03/02/17 18:02 19:00 19:01 Temperature 98.8 F 99.3 F 99.3 F Pulse Rate 86 84 86 Respiratory 20 23 26 Rate Blood Pressure 109/80 136/69 (mmHg) O2 Sat by Pulse 92 91 92 Oximetry 03/02/17 03/02/17 03/02/17 20:00 20:01 20:50 Temperature 98 F 99.3 F Pulse Rate 85 89 83 Respiratory 21 23 20 Rate Blood Pressure 132/76 (mmHg) O2 Sat by Pulse 93 92 95 Oximetry 03/02/17 03/02/17 03/02/17 20:51 21:00 21:01 Temperature 99.5 F 99.5 F Pulse Rate 79 85 Respiratory 24 24 Rate Blood Pressure 119/82 (mmHg) O2 Sat by Pulse 95 95 95 Oximetry 03/02/17 03/02/17 03/02/17 22:00 23:00 23:58 Temperature 99.3 F 99.5 F 99.5 F Pulse Rate 92 84 85 Respiratory 22 22 21 Rate Blood Pressure 126/80 124/76 (mmHg) O2 Sat by Pulse 94 96 96 Oximetry 03/03/17 03/03/17 03/03/17 00:00 01:00 01:46 Temperature 99.3 F 99.3 F Pulse Rate 79 76 85 Respiratory 20 15 19 Rate Blood Pressure 122/69 122/70 (mmHg) O2 Sat by Pulse 96 95 96 Oximetry 03/03/17 03/03/17 03/03/17 01:51 02:00 03:00 Temperature 99.5 F 99.5 F Pulse Rate 87 85 Respiratory 21 23 19 Rate Blood Pressure 131/76 141/83 (mmHg) O2 Sat by Pulse 94 93 Oximetry 03/03/17 03/03/17 03/03/17 04:00 04:18 05:00 Temperature 99.5 F 99.5 F Pulse Rate 81 70 106 Respiratory 18 19 19 Rate Blood Pressure 123/91 (mmHg) O2 Sat by Pulse 94 95 95 Oximetry 03/03/17 03/03/17 03/03/17 05:01 06:00 07:00 Temperature 99.5 F 99.7 F 99.5 F Pulse Rate 92 81 97 Respiratory 22 20 16 Rate Blood Pressure 151/107 125/77 128/79 (mmHg) O2 Sat by Pulse 95 94 96 Oximetry 03/03/17 03/03/17 03/03/17 08:00 08:01 09:00 Temperature 99.5 F 99.3 F 99.9 F Pulse Rate 83 94 92 Respiratory 16 38 17 Rate Blood Pressure 155/91 (mmHg) O2 Sat by Pulse 96 95 97 Oximetry 03/03/17 03/03/17 03/03/17 09:01 10:00 10:01 Temperature 99.7 F 99.3 F 99.3 F Pulse Rate 78 117 109 Respiratory 16 16 15 Rate Blood Pressure 133/84 131/94 (mmHg) O2 Sat by Pulse 95 90 89 Oximetry 03/03/17 03/03/17 03/03/17 11:00 11:01 11:19 Temperature 99.3 F 99.1 F Pulse Rate 82 92 90 Respiratory 19 19 18 Rate Blood Pressure 126/75 (mmHg) O2 Sat by Pulse 94 95 92 Oximetry 03/03/17 11:59 Temperature 97.1 F Pulse Rate 69 Respiratory 20 Rate Blood Pressure 105/52 (mmHg) O2 Sat by Pulse 100 Oximetry Oxygen Devices in Use Now: High Flow Nasal Cannula - 10L Appearance: Patient is a 71yo female who appears stated age and is sitting in the bed in NAD. Eyes: No Scleral Icterus, PERRLA Ears/Nose/Mouth/Throat: NL Teeth, Lips, Gums, Clear Oropharnyx, Mucous Membranes Moist Neck: NL Appearance and Movements; NL JVP, Trachea Midline Respiratory: Symmetrical Chest Expansion and Respiratory Effort, - - Moderate rhonchi in B/L LL. Moderate expiratory wheezes in all lung estrada. Stable from previous exam. Cardiovascular: NL Sounds; No Murmurs; No JVD, RRR, No Edema - Improved dry skin on LE. 1+ pitting edema in B/L LE. Abdominal: NL Sounds; No Tenderness; No Distention, No Hepatosplenomegaly Lymphatic: No Cervical Adenopathy Extremities: - Skin: No Rash or Ulcers Neurological: Alert and Oriented x 3, NL Gait, NL Muscle Strength and Tone Result Diagrams: 03/03/17 06:15 03/03/17 06:15 Additional Lab and Data: Lab Results 02/27/17 02/27/17 02/27/17 Range/Units 16:46 16:50 16:50 WBC 6.7 (3.5-10.8) 10^3/ul RBC 4.34 (4.0-5.4) 10^6/ul Hgb 13.0 (12.0-16.0) g/dl Hct 40 (35-47) % MCV 93 (80-97) fL MCH 30 (27-31) pg MCHC 32 (31-36) g/dl RDW 16 H (10.5-15) % Plt Count 137 L (150-450) 10^3/ul MPV 9 (7.4-10.4) um3 Neut % (Auto) 87.8 H (38-83) % Lymph % (Auto) 5.2 L (25-47) % [place] % (Auto) 5.2 (1-9) % Eos % (Auto) 0.4 (0-6) % Baso % (Auto) 1.4 (0-2) % Absolute Neuts (auto) 5.9 (1.5-7.7) 10^3/ul Absolute Lymphs (auto) 0.3 L (1.0-4.8) 10^3/ul Absolute Monos (auto) 0.3 (0-0.8) 10^3/ul Absolute Eos (auto) 0 (0-0.6) 10^3/ul Absolute Basos (auto) 0.1 (0-0.2) 10^3/ul Absolute Nucleated RBC 0 10^3/ul Nucleated RBC % 0 INR (Anticoag Therapy) (0.89-1.11) APTT (26.0-36.3) seconds Patient Temperature Not Reportable ABG pH 7.25 L (7.35-7.45) ABG pH (Temp Correct) Not Reportable ABG pCO2 59 H (35-45) mmHg ABG pCO2 (Temp Corrct Not Reportable ABG pO2 60 L (80-100) mmHg ABG pO2 (Temp Correct Not Reportable ABG HCO3 22.7 (19-31) mmol/L ABG O2 Saturation 90.6 L (95-98) % ABG Base Excess -2.4 L (-2.0-2.0) Respiration Rate Not Reportable O2 Delivery Device oxymask Ventilator Type Not Reportable Vent Mode Not Reportable FiO2 10 Inspiratory Time Not Reportable PEEP Not Reportable Pressure Support Not Reportable Pressure Control Not Reportable EPAP Not Reportable IPAP Not Reportable BiPAP Not Reportable Sodium 136 (133-145) mmol/L Potassium 4.3 (3.5-5.0) mmol/L Chloride 104 (101-111) mmol/L Carbon Dioxide 25 (22-32) mmol/L Anion Gap 7 (2-11) mmol/L BUN 19 (6-24) mg/dL Creatinine 1.19 H (0.51-0.95) mg/dL Est GFR ( Amer) 57.5 (>60) Est GFR (Non-Af Amer) 44.7 (>60) BUN/Creatinine Ratio 16.0 (8-20) Glucose 110 H (70-100) mg/dL Lactic Acid (0.5-2.0) mmol/L Calcium 9.4 (8.6-10.3) mg/dL Total Bilirubin 1.40 H (0.2-1.0) mg/dL AST 8 L (13-39) U/L ALT 5 L (7-52) U/L Alkaline Phosphatase 71 (34-104) U/L Troponin I 0.04 H* (<0.04) ng/mL B-Natriuretic Peptide ( - 100) pg/mL Total Protein 7.1 (6.4-8.9) g/dL Albumin 3.7 (3.2-5.2) g/dL Globulin 3.4 (2-4) g/dL Albumin/Globulin Ratio 1.1 (1-3) Procalcitonin (<0.6) ng/mL 02/27/17 02/27/17 02/27/17 Range/Units 16:50 16:50 16:50 WBC (3.5-10.8) 10^3/ul RBC (4.0-5.4) 10^6/ul Hgb (12.0-16.0) g/dl Hct (35-47) % MCV (80-97) fL MCH (27-31) pg MCHC (31-36) g/dl RDW (10.5-15) % Plt Count (150-450) 10^3/ul MPV (7.4-10.4) um3 Neut % (Auto) (38-83) % Lymph % (Auto) (25-47) % [place] % (Auto) (1-9) % Eos % (Auto) (0-6) % Baso % (Auto) (0-2) % Absolute Neuts (auto) (1.5-7.7) 10^3/ul Absolute Lymphs (auto) (1.0-4.8) 10^3/ul Absolute Monos (auto) (0-0.8) 10^3/ul Absolute Eos (auto) (0-0.6) 10^3/ul Absolute Basos (auto) (0-0.2) 10^3/ul Absolute Nucleated RBC 10^3/ul Nucleated RBC % INR (Anticoag Therapy) 1.39 H (0.89-1.11) APTT 39.2 H (26.0-36.3) seconds Patient Temperature ABG pH (7.35-7.45) ABG pH (Temp Correct) ABG pCO2 (35-45) mmHg ABG pCO2 (Temp Corrct ABG pO2 (80-100) mmHg ABG pO2 (Temp Correct ABG HCO3 (19-31) mmol/L ABG O2 Saturation (95-98) % ABG Base Excess (-2.0-2.0) Respiration Rate O2 Delivery Device Ventilator Type Vent Mode FiO2 Inspiratory Time PEEP Pressure Support Pressure Control EPAP IPAP BiPAP Sodium (133-145) mmol/L Potassium (3.5-5.0) mmol/L Chloride (101-111) mmol/L Carbon Dioxide (22-32) mmol/L Anion Gap (2-11) mmol/L BUN (6-24) mg/dL Creatinine (0.51-0.95) mg/dL Est GFR ( Amer) (>60) Est GFR (Non-Af Amer) (>60) BUN/Creatinine Ratio (8-20) Glucose (70-100) mg/dL Lactic Acid 1.2 (0.5-2.0) mmol/L Calcium (8.6-10.3) mg/dL Total Bilirubin (0.2-1.0) mg/dL AST (13-39) U/L ALT (7-52) U/L Alkaline Phosphatase (34-104) U/L Troponin I (<0.04) ng/mL B-Natriuretic Peptide 1071 H ( - 100) pg/mL Total Protein (6.4-8.9) g/dL Albumin (3.2-5.2) g/dL Globulin (2-4) g/dL Albumin/Globulin Ratio (1-3) Procalcitonin (<0.6) ng/mL Microbiology and Other Data: Microbiology 02/27/17 20:56 Urine Culture - Preliminary Urine Escherichia Coli 02/27/17 20:56 Legionella Urinary Antigen - Final Urine Negative Legionella Streptococcus pneumoniae Ag Screen - Final Negative S. pneumo Antigen 02/27/17 17:45 Nasal Screen MRSA (PCR)(MILEY) - Final Nasal Mrsa Negative 02/27/17 17:45 Influenza Types A,B Antigen (MILEY) - Final Nasal Specimen received for Influenza A/B Molecular testing Assess/Plan/Problems-Billing Assessment: Patient is a 71yo female with a PMH significant for COPD, HTN, DM II, Cerebellar Aneurysm, Afib, and a history of seizures who presents with a COPD exacerbation and acute respiratory failure who was able to be weaned off of Vapotherm and is now on oxymask at 10L. - Patient Problems (1) Acute respiratory failure Current Visit: Yes Status: Acute Code(s): J96.00 - ACUTE RESPIRATORY FAILURE , UNSP W HYPOXIA OR HYPERCAPNIA SNOMED Code(s): 18155326 Comment: Due to COPD exacerbation and pneumonia, stable, on 10L High Flow NC currently. Transferred to [facility]. IV steroids and ABX changed to PO. On Ceftin, Azithromycin and Prednisone. (2) Sepsis Current Visit: Yes Status: Acute Comment: Due to CAP. Patient met criteria by SIRS at admission, now improved. SOFA score of 10 at admission. Now resolved. (3) Community acquired bacterial pneumonia Current Visit: Yes Status: Acute Code(s): J15.9 - UNSPECIFIED BACTERIAL PNEUMONIA SNOMED Code(s): 406442346 Comment: Febrile with Infiltrate on CXR, leukocytosis and with previously present pleural effusion. Ceftin and Azithromycin. Strep Pneumo and Legionella antigen negative. Flu test negative. (4) COPD (chronic obstructive pulmonary disease) Current Visit: Yes Status: Acute Code(s): J44.9 - CHRONIC OBSTRUCTIVE PULMONARY DISEASE, UNSPECIFIED SNOMED Code(s): 04261791 Comment: Currently in exacerbation, continue scheduled inhalers, Start PO prednisone., antibiotics and wean O2 as tolerated. (5) Afib Current Visit: Yes Status: Acute Code(s): I48.91 - UNSPECIFIED ATRIAL FIBRILLATION SNOMED Code(s): 13409037 Comment: On home metoprolol, diltiazem and Xarelto. Continue metoprolol, hold diltiazem. Continue xarelto. Normotensive and rate controlled. (6) Diabetes Current Visit: Yes Status: Acute Code(s): E11.9 - TYPE 2 DIABETES MELLITUS WITHOUT COMPLICATIONS SNOMED Code(s): 53209479 Comment: On no home medications. SSI insulin. FSBG swtiched to ACHS with inproved oral intake. Probably related to steroids. On 5u Lantus daily, will titrate up as needed. (7) Depression Current Visit: Yes Status: Acute Code(s): F32.9 - MAJOR DEPRESSIVE DISORDER , SINGLE EPISODE, UNSPECIFIED SNOMED Code(s): 28961355 Comment: No home medications, will monitor for symptoms. 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 Slightly increased hygroma. Will monitor for deterioration in mental status independant of respiratory status and will rescan head if needed. (9) Jain esophagus Current Visit: Yes Status: Acute Code(s): K22.70 - JAIN'S ESOPHAGUS WITHOUT DYSPLASIA SNOMED Code(s): 627740558 Comment: Continue home omeprazole. (10) HTN (hypertension) Current Visit: Yes Status: Acute Code(s): I10 - ESSENTIAL (PRIMARY) HYPERTENSION SNOMED Code(s): 27734124 Comment: Normotensive, continue metoprolol, hold diltiazem and amlodipine. (11) Chronic acquired lymphedema Current Visit: Yes Status: Acute Code(s): I89.0 - LYMPHEDEMA, NOT ELSEWHERE CLASSIFIED SNOMED Code(s): 84278189 Comment: Of unknown duration and severity. No current open areas or weeping. Appreciate input from wound nurse. Will continue to monitor and would recommend outpatient follow up with a lymphedema clinic. (12) Abnormal urinalysis Current Visit: Yes Status: Acute Code(s): R82.90 - UNSPECIFIED ABNORMAL FINDINGS IN URINE SNOMED Code(s): 547240131 Comment: Indicating possible UTI. No symptoms, E. Coli 10-25K colonies, being treated with Ceftriaxone for PNA. (13) DVT prophylaxis Current Visit: Yes Status: Acute Code(s): GKG3820 - SNOMED Code(s): 076678692 Comment: Marianne (14) Full code status Current Visit: Yes Status: Acute Code(s): Z78.9 - OTHER SPECIFIED HEALTH STATUS SNOMED Code(s): 227369917 Status and Disposition: Patient is admitted to telemetry on 10L High Flow Nasal Cannula.
[2017-03-03] MEDS: Insulin GLARGINE(*) 1 UNITS UNIT SUBCUT SCH (17:14)
[2017-03-03] MEDS: predniSONE TAB* 20 MG PO SCH (17:16)
[2017-03-03] MEDS: Azithromycin TAB* 250 MG PO SCH (17:16)
[2017-03-03] MEDS ORDERED: Albuterol/Ipratropium NEB.SOL* Albuterol 2.5 MG/Ipratropium 0.5 MG 3 ML ONE (19:42)
[2017-03-04] MEDS: Albuterol/Ipratropium NEB.SOL* Albuterol 2.5 MG/Ipratropium 0.5 MG 3 ML INH SCH ×2 (00:51→08:22)
[2017-03-04 05:13] LABS: Hematocrit 40 % (35-47); Hemoglobin 13.1 g/dl (12.0-16.0); Mean Corpuscular HGB Conc 33 g/dl (31-36); Mean Corpuscular Hemoglobin 30 pg (27-31); Mean Corpuscular Volume 92 fL (80-97); Mean Platelet Volume 8 um3 (7.4-10.4); Red Blood Count 4.41 10^6/ul (4.0-5.4); Red Cell Distribution Width 16 % (10.5-15); White Blood Count 8.7 10^3/ul (3.5-10.8)
[2017-03-04 05:27] LABS: Albumin 3.2 g/dL (3.2-5.2); BUN/Creatinine Ratio 36.7 (8-20); Calcium 8.6 mg/dL (8.6-10.3); EGFR African American 63.6 (>60); EGFR Non-African American 49.5 (>60); Globulin 2.9 g/dL (2-4); Potassium 4.7 mmol/L (3.5-5.0); Total Bilirubin 0.6 mg/dL (0.2-1.0); Total Protein 6.1 g/dL (6.4-8.9)
[2017-03-04] MEDS: Insulin LISPRO* 1 UNITS UNIT SUBCUT SCH ×4 (08:03→21:03)
[2017-03-04] MEDS: guaiFENesin ER TAB 600 MG PO SCH ×2 (08:06→21:02)
[2017-03-04] MEDS: Rivaroxaban TAB(*) 20 MG TAB PO SCH (08:06)
[2017-03-04] MEDS: Atenolol TAB* 50 MG PO SCH ×2 (08:06→21:01)
[2017-03-04] MEDS: Omeprazole CAP* 20 MG PO SCH ×2 (08:06→21:01)
[2017-03-04] MEDS: ceFUROXime TAB(*) 250 MG PO SCH ×2 (08:06→20:59)
[2017-03-04] MEDS: Nystatin TOP POWDER* 15 GM BTL TOPICAL SCH ×3 (08:07→21:05)
[2017-03-04] MEDS: Tiotropium CAP.INH* CAP.INH/18 MCG (USE ORDER SET !) INH SCH (08:18)
[2017-03-04] MEDS: Mometasone/Formoter 200/5 MDI INH SCH ×2 (08:19→20:02)
[2017-03-04] MEDS: predniSONE TAB* 20 MG PO SCH (17:19)
[2017-03-04] MEDS: Azithromycin TAB* 250 MG PO SCH (17:19)
[2017-03-04] MEDS: Insulin GLARGINE(*) 1 UNITS UNIT SUBCUT SCH (17:20)
--- NOTE | 2017-03-04 18:10 | PN ---
Subjective Date of Service: 03/04/17 Interval History: Patient has improved SOB from yesterday. Patient has no other complaints. Patient was able to walk to the bathroom with PT and they recommended home PT going forward, but OT states that she would benefit from MONIKA. Patient instructed to bring in CPAP from home to assess different masks in the hospital to try to increase compliance with CPAP at home. Patient currently on 8L High Flow NC. Family History: Unchanged from Admission Social History: Unchanged from Admission Past Medical History: Unchanged from Admission Objective Active Medications: Acetaminophen (Tylenol Tab*) 650 mg PO Q4H PRN PRN Reason: FEVER/PAIN Albuterol (Ventolin 2.5 Mg/3 Ml Neb.Cherie*) 2.5 mg INH Q2H PRN PRN Reason: SOB/WHEEZING Atenolol (Tenormin Tab*) 50 mg PO BID [facility] Last Admin: 03/04/17 08:06 Dose: 50 mg Azithromycin (Zithromax Tab*) 250 mg PO QPM [facility] Last Admin: 03/04/17 17:19 Dose: 250 mg Cefuroxime Axetil (Ceftin Tab(*)) 500 mg PO BID [facility] Last Admin: 03/04/17 08:06 Dose: 500 mg Dextrose (D50w Syringe 50 Ml*) 12.5 gm IV PUSH .FOR FS < 60 - SS PRN PRN Reason: FS < 60 Guaifenesin (Mucinex*) 1,200 mg PO BID [facility] Last Admin: 03/04/17 08:06 Dose: 1,200 mg Hydralazine HCl (Apresoline Iv*) 5 mg IV SLOW PU Q6H PRN PRN Reason: BLOOD PRESSURE Last Admin: 02/27/17 19:43 Dose: 5 mg Insulin Glargine (Lantus(*)) 5 units SUBCUT Q24H [facility] Last Admin: 03/04/17 17:20 Dose: 5 units Insulin Human Lispro (Humalog*) 0 units SUBCUT ACHS [facility] PRN Reason: Protocol Last Admin: 03/04/17 17:19 Dose: 3 units Mometasone Furoate/Formoterol Fumar (Dulera 200/5 Mdi*) 2 puff INH BID [facility] Last Admin: 03/04/17 08:19 Dose: 2 puff Nystatin (Nystatin Top Powder*) 1 applic TOPICAL TID [facility] Last Admin: 03/04/17 13:08 Dose: 1 applic Omeprazole (Prilosec Cap*) 20 mg PO BID [facility] Last Admin: 03/04/17 08:06 Dose: 20 mg Ondansetron HCl (Zofran Inj*) 4 mg IV Q6H PRN PRN Reason: NAUSEA Prednisone (Deltasone Tab*) 60 mg PO QPM [facility] Last Admin: 03/04/17 17:19 Dose: 60 mg Rivaroxaban (Xarelto (*)) 20 mg PO DAILY [facility] Last Admin: 03/04/17 08:06 Dose: 20 mg Tiotropium [place] (Spiriva Cap.Inh*) 1 cap INH DAILY [facility] Last Admin: 03/04/17 08:18 Dose: 1 cap Vital Signs 03/03/17 03/03/17 03/03/17 19:37 20:00 20:11 Temperature 98.0 F Pulse Rate 27 85 Respiratory 16 16 18 Rate Blood Pressure 128/78 (mmHg) O2 Sat by Pulse 92 96 Oximetry 03/03/17 03/04/17 03/04/17 23:38 00:52 04:16 Temperature 97.4 F Pulse Rate 86 102 Respiratory 16 18 16 Rate Blood Pressure 129/55 155/99 (mmHg) O2 Sat by Pulse 98 99 99 Oximetry 03/04/17 03/04/17 03/04/17 07:23 08:00 08:13 Temperature 97.6 F Pulse Rate 93 Respiratory 16 20 Rate Blood Pressure 145/96 (mmHg) O2 Sat by Pulse 97 93 Oximetry 03/04/17 03/04/17 03/04/17 08:14 08:22 11:24 Temperature 97.8 F Pulse Rate 85 73 62 Respiratory 19 20 21 Rate Blood Pressure 138/63 (mmHg) O2 Sat by Pulse 96 96 97 Oximetry 03/04/17 15:30 Temperature 98.1 F Pulse Rate 77 Respiratory 24 Rate Blood Pressure 134/61 (mmHg) O2 Sat by Pulse 93 Oximetry Oxygen Devices in Use Now: High Flow Nasal Cannula - 8L Appearance: Patient is a 71yo female who appears stated age and is sitting in the bed in NAD. Eyes: No Scleral Icterus, PERRLA Ears/Nose/Mouth/Throat: NL Teeth, Lips, Gums, Clear Oropharnyx, Mucous Membranes Moist Neck: NL Appearance and Movements; NL JVP, Trachea Midline Respiratory: Symmetrical Chest Expansion and Respiratory Effort, - - Moderate Expiratory wheezes with prolonged expiratory phase heard in all lung estrada. Result Diagrams: 03/04/17 04:55 03/04/17 04:55 Additional Lab and Data: Lab Results 02/27/17 02/27/17 02/27/17 Range/Units 16:46 16:50 16:50 WBC 6.7 (3.5-10.8) 10^3/ul RBC 4.34 (4.0-5.4) 10^6/ul Hgb 13.0 (12.0-16.0) g/dl Hct 40 (35-47) % MCV 93 (80-97) fL MCH 30 (27-31) pg MCHC 32 (31-36) g/dl RDW 16 H (10.5-15) % Plt Count 137 L (150-450) 10^3/ul MPV 9 (7.4-10.4) um3 Neut % (Auto) 87.8 H (38-83) % Lymph % (Auto) 5.2 L (25-47) % [place] % (Auto) 5.2 (1-9) % Eos % (Auto) 0.4 (0-6) % Baso % (Auto) 1.4 (0-2) % Absolute Neuts (auto) 5.9 (1.5-7.7) 10^3/ul Absolute Lymphs (auto) 0.3 L (1.0-4.8) 10^3/ul Absolute Monos (auto) 0.3 (0-0.8) 10^3/ul Absolute Eos (auto) 0 (0-0.6) 10^3/ul Absolute Basos (auto) 0.1 (0-0.2) 10^3/ul Absolute Nucleated RBC 0 10^3/ul Nucleated RBC % 0 INR (Anticoag Therapy) (0.89-1.11) APTT (26.0-36.3) seconds Patient Temperature Not Reportable ABG pH 7.25 L (7.35-7.45) ABG pH (Temp Correct) Not Reportable ABG pCO2 59 H (35-45) mmHg ABG pCO2 (Temp Corrct Not Reportable ABG pO2 60 L (80-100) mmHg ABG pO2 (Temp Correct Not Reportable ABG HCO3 22.7 (19-31) mmol/L ABG O2 Saturation 90.6 L (95-98) % ABG Base Excess -2.4 L (-2.0-2.0) Respiration Rate Not Reportable O2 Delivery Device oxymask Ventilator Type Not Reportable Vent Mode Not Reportable FiO2 10 Inspiratory Time Not Reportable PEEP Not Reportable Pressure Support Not Reportable Pressure Control Not Reportable EPAP Not Reportable IPAP Not Reportable BiPAP Not Reportable Sodium 136 (133-145) mmol/L Potassium 4.3 (3.5-5.0) mmol/L Chloride 104 (101-111) mmol/L Carbon Dioxide 25 (22-32) mmol/L Anion Gap 7 (2-11) mmol/L BUN 19 (6-24) mg/dL Creatinine 1.19 H (0.51-0.95) mg/dL Est GFR ( Amer) 57.5 (>60) Est GFR (Non-Af Amer) 44.7 (>60) BUN/Creatinine Ratio 16.0 (8-20) Glucose 110 H (70-100) mg/dL Lactic Acid (0.5-2.0) mmol/L Calcium 9.4 (8.6-10.3) mg/dL Total Bilirubin 1.40 H (0.2-1.0) mg/dL AST 8 L (13-39) U/L ALT 5 L (7-52) U/L Alkaline Phosphatase 71 (34-104) U/L Troponin I 0.04 H* (<0.04) ng/mL B-Natriuretic Peptide ( - 100) pg/mL Total Protein 7.1 (6.4-8.9) g/dL Albumin 3.7 (3.2-5.2) g/dL Globulin 3.4 (2-4) g/dL Albumin/Globulin Ratio 1.1 (1-3) Procalcitonin (<0.6) ng/mL 02/27/17 02/27/17 02/27/17 Range/Units 16:50 16:50 16:50 WBC (3.5-10.8) 10^3/ul RBC (4.0-5.4) 10^6/ul Hgb (12.0-16.0) g/dl Hct (35-47) % MCV (80-97) fL MCH (27-31) pg MCHC (31-36) g/dl RDW (10.5-15) % Plt Count (150-450) 10^3/ul MPV (7.4-10.4) um3 Neut % (Auto) (38-83) % Lymph % (Auto) (25-47) % [place] % (Auto) (1-9) % Eos % (Auto) (0-6) % Baso % (Auto) (0-2) % Absolute Neuts (auto) (1.5-7.7) 10^3/ul Absolute Lymphs (auto) (1.0-4.8) 10^3/ul Absolute Monos (auto) (0-0.8) 10^3/ul Absolute Eos (auto) (0-0.6) 10^3/ul Absolute Basos (auto) (0-0.2) 10^3/ul Absolute Nucleated RBC 10^3/ul Nucleated RBC % INR (Anticoag Therapy) 1.39 H (0.89-1.11) APTT 39.2 H (26.0-36.3) seconds Patient Temperature ABG pH (7.35-7.45) ABG pH (Temp Correct) ABG pCO2 (35-45) mmHg ABG pCO2 (Temp Corrct ABG pO2 (80-100) mmHg ABG pO2 (Temp Correct ABG HCO3 (19-31) mmol/L ABG O2 Saturation (95-98) % ABG Base Excess (-2.0-2.0) Respiration Rate O2 Delivery Device Ventilator Type Vent Mode FiO2 Inspiratory Time PEEP Pressure Support Pressure Control EPAP IPAP BiPAP Sodium (133-145) mmol/L Potassium (3.5-5.0) mmol/L Chloride (101-111) mmol/L Carbon Dioxide (22-32) mmol/L Anion Gap (2-11) mmol/L BUN (6-24) mg/dL Creatinine (0.51-0.95) mg/dL Est GFR ( Amer) (>60) Est GFR (Non-Af Amer) (>60) BUN/Creatinine Ratio (8-20) Glucose (70-100) mg/dL Lactic Acid 1.2 (0.5-2.0) mmol/L Calcium (8.6-10.3) mg/dL Total Bilirubin (0.2-1.0) mg/dL AST (13-39) U/L ALT (7-52) U/L Alkaline Phosphatase (34-104) U/L Troponin I (<0.04) ng/mL B-Natriuretic Peptide 1071 H ( - 100) pg/mL Total Protein (6.4-8.9) g/dL Albumin (3.2-5.2) g/dL Globulin (2-4) g/dL Albumin/Globulin Ratio (1-3) Procalcitonin (<0.6) ng/mL Microbiology and Other Data: Microbiology 02/27/17 20:56 Urine Culture - Preliminary Urine Escherichia Coli 02/27/17 20:56 Legionella Urinary Antigen - Final Urine Negative Legionella Streptococcus pneumoniae Ag Screen - Final Negative S. pneumo Antigen 02/27/17 17:45 Nasal Screen MRSA (PCR)(MILEY) - Final Nasal Mrsa Negative 02/27/17 17:45 Influenza Types A,B Antigen (MILEY) - Final Nasal Specimen received for Influenza A/B Molecular testing Assess/Plan/Problems-Billing Assessment: Patient is a 71yo female with a PMH significant for COPD, HTN, DM II, Cerebellar Aneurysm, Afib, and a history of seizures who presents with a COPD exacerbation and acute respiratory failure who was able to be weaned off of Vapotherm and is now on oxymask at 10L. - Patient Problems (1) Acute respiratory failure Current Visit: Yes Status: Acute Code(s): J96.00 - ACUTE RESPIRATORY FAILURE , UNSP W HYPOXIA OR HYPERCAPNIA SNOMED Code(s): 53498836 Comment: Due to COPD exacerbation and pneumonia, stable, on 8L High Flow NC currently. Transferred to [facility]. IV steroids and ABX changed to PO. On Ceftin, Azithromycin and Prednisone. (2) Sepsis Current Visit: Yes Status: Acute Comment: Due to CAP. Patient met criteria by SIRS at admission, now improved. SOFA score of 10 at admission. Now resolved. (3) Community acquired bacterial pneumonia Current Visit: Yes Status: Acute Code(s): J15.9 - UNSPECIFIED BACTERIAL PNEUMONIA SNOMED Code(s): 393585998 Comment: Febrile with Infiltrate on CXR, leukocytosis and with previously present pleural effusion. Ceftin and Azithromycin. Strep Pneumo and Legionella antigen negative. Flu test negative. (4) COPD (chronic obstructive pulmonary disease) Current Visit: Yes Status: Acute Code(s): J44.9 - CHRONIC OBSTRUCTIVE PULMONARY DISEASE, UNSPECIFIED SNOMED Code(s): 78797147 Comment: Currently in exacerbation, continue scheduled inhalers, Start PO prednisone., antibiotics and wean O2 as tolerated. (5) Afib Current Visit: Yes Status: Acute Code(s): I48.91 - UNSPECIFIED ATRIAL FIBRILLATION SNOMED Code(s): 05289833 Comment: On home metoprolol, diltiazem and Xarelto. Continue metoprolol, hold diltiazem. Continue xarelto. Normotensive and rate controlled. (6) Diabetes Current Visit: Yes Status: Acute Code(s): E11.9 - TYPE 2 DIABETES MELLITUS WITHOUT COMPLICATIONS SNOMED Code(s): 73978586 Comment: Good contril, On no home medications. SSI insulin. FSBG swtiched to ACHS with improved oral intake. Probably related to steroids. On 5u Lantus daily, will titrate up as needed. (7) Depression Current Visit: Yes Status: Acute Code(s): F32.9 - MAJOR DEPRESSIVE DISORDER , SINGLE EPISODE, UNSPECIFIED SNOMED Code(s): 00029208 Comment: No home medications, will monitor for symptoms. (8) CATHODE MAKER (ventriculoperitoneal) shunt status Current Visit: Yes Status: Acute Comment: Visible on CT scan. Slightly increased hygroma. Will monitor for deterioration in mental status independant of respiratory status and will rescan head if needed. (9) Jain esophagus Current Visit: Yes Status: Acute Code(s): K22.70 - JAIN'S ESOPHAGUS WITHOUT DYSPLASIA SNOMED Code(s): 472916866 Comment: Continue home omeprazole. (10) HTN (hypertension) Current Visit: Yes Status: Acute Code(s): I10 - ESSENTIAL (PRIMARY) HYPERTENSION SNOMED Code(s): 18548891 Comment: Normotensive, continue metoprolol, hold diltiazem and amlodipine. (11) Chronic acquired lymphedema Current Visit: Yes Status: Acute Code(s): I89.0 - LYMPHEDEMA, NOT ELSEWHERE CLASSIFIED SNOMED Code(s): 56256310 Comment: Of unknown duration and severity. No current open areas or weeping. Appreciate input from wound nurse. Will continue to monitor and would recommend outpatient follow up with a lymphedema clinic. (12) Abnormal urinalysis Current Visit: Yes Status: Acute Code(s): R82.90 - UNSPECIFIED ABNORMAL FINDINGS IN URINE SNOMED Code(s): 928941758 Comment: Indicating possible UTI. No symptoms, E. Coli 10-25K colonies, being treated with Ceftriaxone for PNA. (13) DVT prophylaxis Current Visit: Yes Status: Acute Code(s): PTW7615 - SNOMED Code(s): 429131157 Comment: Marianne (14) Full code status Current Visit: Yes Status: Acute Code(s): Z78.9 - OTHER SPECIFIED HEALTH STATUS SNOMED Code(s): 228750006 Status and Disposition: Patient is admitted to telemetry on 10L High Flow Nasal Cannula. OT needs identified, considering MONIKA.
[2017-03-05 05:48] LABS: Hematocrit 42 % (35-47); Hemoglobin 13.8 g/dl (12.0-16.0); Mean Corpuscular HGB Conc 33 g/dl (31-36); Mean Corpuscular Hemoglobin 30 pg (27-31); Mean Corpuscular Volume 91 fL (80-97); Mean Platelet Volume 8 um3 (7.4-10.4); Red Cell Distribution Width 15 % (10.5-15); White Blood Count 7.3 10^3/ul (3.5-10.8)
[2017-03-05 06:07] LABS: BUN/Creatinine Ratio 38.1 (8-20); Calcium 8.7 mg/dL (8.6-10.3); EGFR African American 58.1 (>60); EGFR Non-African American 45.2 (>60); Potassium 4.8 mmol/L (3.5-5.0)
[2017-03-05] MEDS: Mometasone/Formoter 200/5 MDI INH SCH ×2 (07:26→21:01)
[2017-03-05] MEDS: Tiotropium CAP.INH* CAP.INH/18 MCG (USE ORDER SET !) INH SCH (07:26)
[2017-03-05] MEDS: Rivaroxaban TAB(*) 20 MG TAB PO SCH (08:05)
[2017-03-05] MEDS: Atenolol TAB* 50 MG PO SCH ×2 (08:05→20:20)
[2017-03-05] MEDS: Nystatin TOP POWDER* 15 GM BTL TOPICAL SCH ×3 (08:05→20:20)
[2017-03-05] MEDS: guaiFENesin ER TAB 600 MG PO SCH ×2 (08:05→20:19)
[2017-03-05] MEDS: Insulin LISPRO* 1 UNITS UNIT SUBCUT SCH ×4 (08:05→20:20)
[2017-03-05] MEDS: Omeprazole CAP* 20 MG PO SCH ×2 (08:05→20:20)
[2017-03-05] MEDS: ceFUROXime TAB(*) 250 MG PO SCH ×2 (08:05→20:19)
--- NOTE | 2017-03-05 15:10 | PN ---
Subjective Date of Service: 03/05/17 Interval History: Patient has no complaints. Patient slept well and complains of no SOB. Patient was able to walk in the halls for over 100 feet with PT. Request that patient have sister bring in CPAP machine to try with hospital mask has been conveyed to sister but has not yet happened. Patient now on 7L O2 and lung exam is improved with only slight wheezes. Family History: Unchanged from Admission Social History: Unchanged from Admission Past Medical History: Unchanged from Admission Objective Active Medications: Acetaminophen (Tylenol Tab*) 650 mg PO Q4H PRN PRN Reason: FEVER/PAIN Albuterol (Ventolin 2.5 Mg/3 Ml Neb.Cherie*) 2.5 mg INH Q2H PRN PRN Reason: SOB/WHEEZING Atenolol (Tenormin Tab*) 50 mg PO BID [facility] Last Admin: 03/05/17 08:05 Dose: 50 mg Azithromycin (Zithromax Tab*) 250 mg PO QPM [facility] Last Admin: 03/04/17 17:19 Dose: 250 mg Cefuroxime Axetil (Ceftin Tab(*)) 500 mg PO BID [facility] Last Admin: 03/05/17 08:05 Dose: 500 mg Dextrose (D50w Syringe 50 Ml*) 12.5 gm IV PUSH .FOR FS < 60 - SS PRN PRN Reason: FS < 60 Guaifenesin (Mucinex*) 1,200 mg PO BID [facility] Last Admin: 03/05/17 08:05 Dose: 1,200 mg Hydralazine HCl (Apresoline Iv*) 5 mg IV SLOW PU Q6H PRN PRN Reason: BLOOD PRESSURE Last Admin: 02/27/17 19:43 Dose: 5 mg Insulin Glargine (Lantus(*)) 10 units SUBCUT Q24H [facility] Insulin Human Lispro (Humalog*) 0 units SUBCUT ACHS [facility] PRN Reason: Protocol Last Admin: 03/05/17 12:39 Dose: 3 units Mometasone Furoate/Formoterol Fumar (Dulera 200/5 Mdi*) 2 puff INH BID [facility] Last Admin: 03/05/17 07:26 Dose: 2 puff Nystatin (Nystatin Top Powder*) 1 applic TOPICAL TID [facility] Last Admin: 03/05/17 14:55 Dose: 1 applic Omeprazole (Prilosec Cap*) 20 mg PO BID [facility] Last Admin: 03/05/17 08:05 Dose: 20 mg Ondansetron HCl (Zofran Inj*) 4 mg IV Q6H PRN PRN Reason: NAUSEA Prednisone (Deltasone Tab*) 60 mg PO QPM [facility] Last Admin: 03/04/17 17:19 Dose: 60 mg Rivaroxaban (Xarelto (*)) 20 mg PO DAILY [facility] Last Admin: 03/05/17 08:05 Dose: 20 mg Tiotropium [place] (Spiriva Cap.Inh*) 1 cap INH DAILY [facility] Last Admin: 03/05/17 07:26 Dose: 1 cap Vital Signs 03/04/17 03/04/17 03/04/17 15:30 19:21 20:00 Temperature 98.1 F 97.9 F Pulse Rate 77 88 Respiratory 24 20 18 Rate Blood Pressure 134/61 132/77 (mmHg) O2 Sat by Pulse 93 95 Oximetry 03/04/17 03/04/17 03/05/17 20:03 23:28 03:31 Temperature 97.7 F 97.5 F Pulse Rate 106 78 Respiratory 16 16 Rate Blood Pressure 163/84 113/67 (mmHg) O2 Sat by Pulse 97 95 97 Oximetry 03/05/17 03/05/17 03/05/17 07:25 07:55 08:00 Temperature 97.5 F Pulse Rate 80 71 Respiratory 20 18 Rate Blood Pressure 127/49 (mmHg) O2 Sat by Pulse 99 Oximetry 03/05/17 11:17 Temperature 97.7 F Pulse Rate 74 Respiratory 20 Rate Blood Pressure 123/70 (mmHg) O2 Sat by Pulse 98 Oximetry Oxygen Devices in Use Now: High Flow Nasal Cannula Appearance: Patient is a 71yo female who appears stated age and is sitting in the chair in [facility]. Eyes: No Scleral Icterus, PERRLA Ears/Nose/Mouth/Throat: NL Teeth, Lips, Gums, Clear Oropharnyx, Mucous Membranes Moist Neck: Trachea Midline Respiratory: Symmetrical Chest Expansion and Respiratory Effort, - - Slight expiratory wheezes throughout. No rhonchi. Cardiovascular: NL Sounds; No Murmurs; No JVD, RRR, No Edema Abdominal: NL Sounds; No Tenderness; No Distention, No Hepatosplenomegaly Lymphatic: No Cervical Adenopathy Extremities: No Edema Skin: No Rash or Ulcers, No Nodules or Sclerosis Neurological: Alert and Oriented x 3, NL Sensation, NL Gait, NL Muscle Strength and Tone Result Diagrams: 03/05/17 05:17 03/05/17 05:17 Additional Lab and Data: Lab Results Microbiology and Other Data: Microbiology 02/27/17 20:56 Urine Culture - Preliminary Urine Escherichia Coli 02/27/17 20:56 Legionella Urinary Antigen - Final Urine Negative Legionella Streptococcus pneumoniae Ag Screen - Final Negative S. pneumo Antigen 02/27/17 17:45 Nasal Screen MRSA (PCR)(MILEY) - Final Nasal Mrsa Negative 02/27/17 17:45 Influenza Types A,B Antigen (MILEY) - Final Nasal Specimen received for Influenza A/B Molecular testing Assess/Plan/Problems-Billing Assessment: Patient is a 71yo female with a PMH significant for COPD, HTN, DM II, Cerebellar Aneurysm, Afib, and a history of seizures who presents with a COPD exacerbation and acute respiratory failure who was able to be weaned off of Vapotherm and is now on oxymask at 10L. - Patient Problems (1) Acute respiratory failure Current Visit: Yes Status: Acute Code(s): J96.00 - ACUTE RESPIRATORY FAILURE , UNSP W HYPOXIA OR HYPERCAPNIA SNOMED Code(s): 19523440 Comment: Due to COPD exacerbation and pneumonia, stable, on 7L High Flow NC currently. IV steroids and ABX changed to PO. On Ceftin, Azithromycin and Prednisone. Slow progress weaning O2. Mental status has improved dramatically over the course of admission. (2) Sepsis Current Visit: Yes Status: Acute Comment: Due to CAP. Patient met criteria by SIRS at admission, now improved. SOFA score of 10 at admission. Now resolved. (3) Community acquired bacterial pneumonia Current Visit: Yes Status: Acute Code(s): J15.9 - UNSPECIFIED BACTERIAL PNEUMONIA SNOMED Code(s): 138710872 Comment: Febrile with Infiltrate on CXR, leukocytosis and with previously present pleural effusion. Ceftin and Azithromycin. Strep Pneumo and Legionella antigen negative. Flu test negative. Never had leukocytosis or productive cough. (4) COPD (chronic obstructive pulmonary disease) Current Visit: Yes Status: Acute Code(s): J44.9 - CHRONIC OBSTRUCTIVE PULMONARY DISEASE, UNSPECIFIED SNOMED Code(s): 86188708 Comment: Currently in exacerbation, continue scheduled inhalers, PO prednisone, antibiotics and wean O2 as tolerated. (5) Afib Current Visit: Yes Status: Acute Code(s): I48.91 - UNSPECIFIED ATRIAL FIBRILLATION SNOMED Code(s): 37199047 Comment: On home metoprolol, diltiazem and Xarelto. Continue metoprolol, hold diltiazem. Continue xarelto. Normotensive and rate controlled. (6) Diabetes Current Visit: Yes Status: Acute Code(s): E11.9 - TYPE 2 DIABETES MELLITUS WITHOUT COMPLICATIONS SNOMED Code(s): 29703117 Comment: Good contril, On no home medications. SSI insulin. FSBG swtiched to ACHS with improved oral intake. Probably related to steroids. On 5u Lantus daily, will titrate up as needed. (7) Depression Current Visit: Yes Status: Acute Code(s): F32.9 - MAJOR DEPRESSIVE DISORDER , SINGLE EPISODE, UNSPECIFIED SNOMED Code(s): 22341378 Comment: No home medications, will monitor for symptoms. 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 Slightly increased hygroma. Will monitor for deterioration in mental status independant of respiratory status and will rescan head if needed. (9) Jain esophagus Current Visit: Yes Status: Acute Code(s): K22.70 - JAIN'S ESOPHAGUS WITHOUT DYSPLASIA SNOMED Code(s): 820375213 Comment: Continue home omeprazole. (10) HTN (hypertension) Current Visit: Yes Status: Acute Code(s): I10 - ESSENTIAL (PRIMARY) HYPERTENSION SNOMED Code(s): 13159308 Comment: Normotensive, continue metoprolol, hold diltiazem and amlodipine. (11) Chronic acquired lymphedema Current Visit: Yes Status: Acute Code(s): I89.0 - LYMPHEDEMA, NOT ELSEWHERE CLASSIFIED SNOMED Code(s): 27759035 Comment: Of unknown duration and severity. No current open areas or weeping. Appreciate input from wound nurse. Will continue to monitor and would recommend outpatient follow up with a lymphedema clinic. (12) Abnormal urinalysis Current Visit: Yes Status: Acute Code(s): R82.90 - UNSPECIFIED ABNORMAL FINDINGS IN URINE SNOMED Code(s): 394089362 Comment: Indicating possible UTI. No symptoms, E. Coli 10-25K colonies, being treated with Ceftriaxone for PNA. (13) DVT prophylaxis Current Visit: Yes Status: Acute Code(s): VVH0830 - SNOMED Code(s): 708984343 Comment: Marianne (14) Full code status Current Visit: Yes Status: Acute Code(s): Z78.9 - OTHER SPECIFIED HEALTH STATUS SNOMED Code(s): 666294778 Status and Disposition: Patient is admitted to telemetry on 7L high flow O2. Patient performing well with PT/OT. Home when O2 needs controlled with VNS.
[2017-03-05] MEDS: predniSONE TAB* 20 MG PO SCH (17:57)
[2017-03-05] MEDS: Azithromycin TAB* 250 MG PO SCH (17:57)
[2017-03-05] MEDS: Insulin GLARGINE(*) 1 UNITS UNIT SUBCUT SCH (17:58)
[2017-03-06] MEDS: Tiotropium CAP.INH* CAP.INH/18 MCG (USE ORDER SET !) INH SCH (08:21)
[2017-03-06] MEDS: Mometasone/Formoter 200/5 MDI INH SCH ×2 (08:21→20:53)
--- NOTE | 2017-03-06 08:27 | PN ---
Subjective Date of Service: 03/06/17 Interval History: Ms. Rosado reports that she is feeling better but that she is still dyspneic with exertion. She denies chest pain, nausea, or abdominal pain. Family History: Unchanged from Admission Social History: Unchanged from Admission Past Medical History: Unchanged from Admission Objective Active Medications: Acetaminophen (Tylenol Tab*) 650 mg PO Q4H PRN Albuterol (Ventolin 2.5 Mg/3 Ml Neb.Cherie*) 2.5 mg INH Q2H PRN Atenolol (Tenormin Tab*) 50 mg PO BID KEYA Azithromycin (Zithromax Tab*) 250 mg PO QPM KEYA Cefuroxime Axetil (Ceftin Tab(*)) 500 mg PO BID KEYA Dextrose (D50w Syringe 50 Ml*) 12.5 gm IV PUSH .FOR FS < 60 - SS PRN Guaifenesin (Mucinex*) 1,200 mg PO BID KEYA Hydralazine HCl (Apresoline Iv*) 5 mg IV SLOW PU Q6H PRN Insulin Glargine (Lantus(*)) 10 units SUBCUT Q24H KEYA Insulin Human Lispro (Humalog*) 0 units SUBCUT ACHS KEYA Mometasone Furoate/Formoterol Fumar (Dulera 200/5 Mdi*) 2 puff INH BID KEYA Nystatin (Nystatin Top Powder*) 1 applic TOPICAL TID KEYA Omeprazole (Prilosec Cap*) 20 mg PO BID KEYA Ondansetron HCl (Zofran Inj*) 4 mg IV Q6H PRN Prednisone (Deltasone Tab*) 60 mg PO QPM KEYA Rivaroxaban (Xarelto (*)) 20 mg PO DAILY KEYA Tiotropium [place] (Spiriva Cap.Inh*) 1 cap INH DAILY KEYA Vital Signs: Temp Pulse Resp BP Pulse Ox 97.2 F 91 16 132/85 99 03/06/17 04:00 03/06/17 04:00 03/06/17 04:00 03/06/17 04:00 03/06/17 05:02 Oxygen Devices in Use Now: Nasal Cannula Appearance: Female sitting up in chair in NAD Eyes: No Scleral Icterus Ears/Nose/Mouth/Throat: Mucous Membranes Moist Neck: Trachea Midline Respiratory: Symmetrical Chest Expansion and Respiratory Effort, Clear to Auscultation Result Diagrams: 03/05/17 05:17 03/05/17 05:17 Additional Lab and Data: . Microbiology and Other Data: . Assess/Plan/Problems-Billing Assessment: Ms. Rosado is a 71yo female with a PMH significant for COPD, HTN, DM II, cerebellar aneurysm, Afib, and a history of seizures who presented on 02/27/17 with a COPD exacerbation and acute respiratory failure. - Patient Problems (1) Acute respiratory failure Comment: - Slow progress weaning O2, currently on 6L NC. Mental status has improved dramatically over the course of admission. - Due to COPD exacerbation and pneumonia. - Continue cefuroxime, azithromycin and prednisone. (2) Severe sepsis Comment: - Present on admission with tachycardia, tachypnea and acute respiratory failure. - Secondary to CAP and COPD exacerbation. - Resolving. (3) COPD exacerbation Comment: - Improving slowing. - Continue antibiotics and prednisone as per above. (4) Community acquired bacterial pneumonia Comment: - Resolving. - Febrile, infiltrate on CXR. No leukocytosis, CRP neglible. - Continue cefuroxime and azithromycin. - Strep Pneumo and Legionella antigen negative. Flu test negative. (5) Abnormal urinalysis Comment: - Asymptomatic but urine culture with E. Coli 10-25K colonies, being treated with Ceftriaxone for PNA. (6) Afib Comment: - Rate controlled. - Contine home atenolol, resume diltiazem. - Continue xarelto. (7) Diabetes Comment: - BGs 180-200s, likely due to steroids as diet controlled at home. - Continue lantus with high dose SSI insulin with meals. (8) HTN (hypertension) Comment: - SBP 110-130s. - Continue amlodipine, resume diltiazem, hold amlodipine and lisinopril. 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 (10) Chronic acquired lymphedema Comment: - Of unknown duration and severity. No current open areas or weeping. Appreciate input from wound nurse. Will continue to monitor and would recommend outpatient follow up with a lymphedema clinic. (11) SPECIAL LIBRARIAN (ventriculoperitoneal) shunt status Comment: - Visible on CT scan. Slightly increased hygroma. Will monitor for deterioration in mental status independant of respiratory status and will rescan head if needed. (12) DVT prophylaxis Comment: - Xarelto (13) Full code status Current Visit: Yes Status: Acute Code(s): Z78.9 - OTHER SPECIFIED HEALTH STATUS SNOMED Code(s): 633290211 Status and Disposition: Patient is admitted to telemetry on 7L high flow O2. Patient performing well with PT/OT. Home when O2 needs controlled with VNS.
[2017-03-06] MEDS ORDERED: Diltiazem XR EXTEND Releas(NF) 240 MG CAP PO SCH (09:00)
[2017-03-06] MEDS: Diltiazem CD CAP* 120 MG PO SCH (09:24)
[2017-03-06] MEDS: Atenolol TAB* 50 MG PO SCH ×2 (09:25→21:42)
[2017-03-06] MEDS: guaiFENesin ER TAB 600 MG PO SCH ×2 (09:25→21:42)
[2017-03-06] MEDS: Omeprazole CAP* 20 MG PO SCH ×2 (09:25→21:42)
[2017-03-06] MEDS: Insulin LISPRO* 1 UNITS UNIT SUBCUT SCH ×4 (09:25→21:42)
[2017-03-06] MEDS: Rivaroxaban TAB(*) 20 MG TAB PO SCH (09:25)
[2017-03-06] MEDS: ceFUROXime TAB(*) 250 MG PO SCH ×2 (09:25→21:42)
[2017-03-06] MEDS: Nystatin TOP POWDER* 15 GM BTL TOPICAL SCH ×3 (09:28→21:43)
[2017-03-06] MEDS: Insulin GLARGINE(*) 1 UNITS UNIT SUBCUT SCH (17:20)
[2017-03-06] MEDS: Azithromycin TAB* 250 MG PO SCH (18:10)
[2017-03-06] MEDS: predniSONE TAB* 20 MG PO SCH (18:10)
[2017-03-07 07:59] LABS: BUN/Creatinine Ratio 47.4 (8-20); EGFR African American 74.6 (>60)
[2017-03-07 08:01] LABS: Potassium 5.3 mmol/L (3.5-5.0)
[2017-03-07] MEDS: Mometasone/Formoter 200/5 MDI INH SCH ×2 (08:22→21:56)
[2017-03-07] MEDS: Tiotropium CAP.INH* CAP.INH/18 MCG (USE ORDER SET !) INH SCH (08:22)
[2017-03-07] MEDS: ceFUROXime TAB(*) 250 MG PO SCH ×2 (08:34→21:31)
[2017-03-07] MEDS: Omeprazole CAP* 20 MG PO SCH ×2 (08:34→21:31)
[2017-03-07] MEDS: Atenolol TAB* 50 MG PO SCH ×2 (08:34→21:31)
[2017-03-07] MEDS: Rivaroxaban TAB(*) 20 MG TAB PO SCH (08:35)
[2017-03-07] MEDS: guaiFENesin ER TAB 600 MG PO SCH ×2 (08:35→21:31)
[2017-03-07] MEDS: Diltiazem CD CAP* 120 MG PO SCH (08:35)
[2017-03-07] MEDS: Insulin LISPRO* 1 UNITS UNIT SUBCUT SCH ×4 (08:36→21:31)
[2017-03-07] MEDS ORDERED: amLODIPine TAB* 5 MG PO SCH (09:00)
--- NOTE | 2017-03-07 09:46 | PN ---
Subjective Date of Service: 03/07/17 Interval History: Ms. Rosado is feeling somewhat better today. She continues to require 4L NC to maintain her O2 saturation > 90%. She denies chest pain and does not feel short of breath at rest. She denies nausea or abdominal pain. Family History: Unchanged from Admission Social History: Unchanged from Admission Past Medical History: Unchanged from Admission Objective Active Medications: Acetaminophen (Tylenol Tab*) 650 mg PO Q4H PRN Albuterol (Ventolin 2.5 Mg/3 Ml Neb.Cherie*) 2.5 mg INH Q2H PRN Atenolol (Tenormin Tab*) 50 mg PO BID KEYA Azithromycin (Zithromax Tab*) 250 mg PO QPM KEYA Cefuroxime Axetil (Ceftin Tab(*)) 500 mg PO BID KEYA Dextrose (D50w Syringe 50 Ml*) 12.5 gm IV PUSH .FOR FS < 60 - SS PRN Diltiazem HCl (Cardizem Cd Cap*) 120 mg PO QAM KEYA Guaifenesin (Mucinex*) 1,200 mg PO BID KEYA Insulin Glargine (Lantus(*)) 10 units SUBCUT Q24H KEYA Insulin Human Lispro (Humalog*) 0 units SUBCUT ACHS KEYA Mometasone Furoate/Formoterol Fumar (Dulera 200/5 Mdi*) 2 puff INH BID KEYA Nystatin (Nystatin Top Powder*) 1 applic TOPICAL TID KEYA Omeprazole (Prilosec Cap*) 20 mg PO BID KEYA Ondansetron HCl (Zofran Inj*) 4 mg IV Q6H PRN Prednisone (Deltasone Tab*) 60 mg PO QPM KEYA Rivaroxaban (Xarelto (*)) 20 mg PO DAILY KEYA Tiotropium [place] (Spiriva Cap.Inh*) 1 cap INH DAILY KEYA Vital Signs 03/06/17 03/06/17 03/06/17 11:11 11:48 15:48 Temperature 98.3 F 98.2 F Pulse Rate 82 74 Respiratory 24 17 Rate Blood Pressure 108/51 118/58 (mmHg) O2 Sat by Pulse 83 92 94 Oximetry 03/06/17 03/06/17 03/06/17 19:26 19:27 20:00 Temperature 97.8 F Pulse Rate 77 77 Respiratory 22 17 16 Rate Blood Pressure 115/62 (mmHg) O2 Sat by Pulse 95 95 Oximetry 03/06/17 03/06/17 03/07/17 20:55 23:40 03:55 Temperature 97.3 F 97.2 F Pulse Rate 78 Respiratory 16 16 Rate Blood Pressure 123/63 112/61 (mmHg) O2 Sat by Pulse 95 99 99 Oximetry 03/07/17 03/07/17 03/07/17 07:24 08:00 08:25 Temperature 97.1 F Pulse Rate 76 Respiratory 16 16 Rate Blood Pressure 110/75 (mmHg) O2 Sat by Pulse 100 98 Oximetry 03/07/17 08:26 Temperature Pulse Rate 80 Respiratory 16 Rate Blood Pressure (mmHg) O2 Sat by Pulse 98 Oximetry Oxygen Devices in Use Now: Nasal Cannula Appearance: Elderly female sitting in chair in NAD Eyes: No Scleral Icterus Ears/Nose/Mouth/Throat: Mucous Membranes Moist Neck: Trachea Midline Respiratory: Symmetrical Chest Expansion and Respiratory Effort, - - Rhonchi bilaterally, right greater than left Cardiovascular: NL Sounds; No Murmurs; No JVD, No Edema Abdominal: NL Sounds; No Tenderness; No Distention Lymphatic: No Cervical Adenopathy Extremities: No Edema Skin: No Rash or Ulcers Neurological: Alert and Oriented x 3, NL Muscle Strength and Tone Nutrition: Taking PO's Result Diagrams: 03/05/17 05:17 03/07/17 07:05 Additional Lab and Data: . Microbiology and Other Data: . Assess/Plan/Problems-Billing Assessment: Ms. Rosado is a 71yo female with a PMH significant for COPD, HTN, DM II, cerebellar aneurysm, Afib, and a history of seizures who presented on 02/27/17 with a COPD exacerbation and acute respiratory failure. - Patient Problems (1) Acute respiratory failure Comment: - Slow progress weaning O2, currently on 4L NC. - Due to COPD exacerbation and pneumonia. - Continue cefuroxime, azithromycin and prednisone. (2) Severe sepsis Comment: - Present on admission with tachycardia, tachypnea and acute respiratory failure. - Secondary to CAP and COPD exacerbation. - Resolving. (3) COPD exacerbation Comment: - Improving slowing. - Continue antibiotics and prednisone as per above. (4) Community acquired bacterial pneumonia Comment: - Resolving. - Febrile, infiltrate on CXR. No leukocytosis, CRP neglible. - Continue cefuroxime and azithromycin. - Strep Pneumo and Legionella antigen negative. Flu test negative. (5) Abnormal urinalysis Comment: - Asymptomatic but urine culture with E. Coli 10-25K colonies, being treated with cefuroxime for PNA. (6) Afib Comment: - Rate controlled. - Contine home atenolol, resume diltiazem. - Continue xarelto. (7) Diabetes Comment: - BGs 180-200s, likely due to steroids as diet controlled at home. - Continue lantus with high dose SSI insulin with meals. (8) HTN (hypertension) Comment: - SBP 110s. - Continue amlodipine and diltiazem. Hold amlodipine and lisinopril. 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 (10) Chronic acquired lymphedema Comment: - Of unknown duration and severity. No current open areas or weeping. Appreciate input from wound nurse. Will continue to monitor and would recommend outpatient follow up with a lymphedema clinic. (11) INVENTORY WORKER (ventriculoperitoneal) shunt status Comment: - Visible on CT scan. Slightly increased hygroma. - Mental status at baseline. (12) DVT prophylaxis Comment: - Xarelto (13) Full code status Current Visit: Yes Status: Acute Code(s): Z78.9 - OTHER SPECIFIED HEALTH STATUS SNOMED Code(s): 687889878 Status and Disposition: Inpatient. Anticipate discharge to home when medically stable.
[2017-03-07] MEDS: Nystatin TOP POWDER* 15 GM BTL TOPICAL SCH ×3 (11:04→21:32)
[2017-03-07] MEDS: Azithromycin TAB* 250 MG PO SCH (17:37)
[2017-03-07] MEDS: predniSONE TAB* 20 MG PO SCH (17:37)
[2017-03-07] MEDS: Insulin GLARGINE(*) 1 UNITS UNIT SUBCUT SCH (17:38)
[2017-03-08] MEDS: Insulin LISPRO* 1 UNITS UNIT SUBCUT SCH ×2 (08:30→13:23)
[2017-03-08] MEDS: ceFUROXime TAB(*) 250 MG PO SCH (08:31)
[2017-03-08] MEDS: Atenolol TAB* 50 MG PO SCH (08:31)
[2017-03-08] MEDS: Rivaroxaban TAB(*) 20 MG TAB PO SCH (08:31)
[2017-03-08] MEDS: guaiFENesin ER TAB 600 MG PO SCH (08:31)
[2017-03-08] MEDS: Omeprazole CAP* 20 MG PO SCH (08:31)
[2017-03-08] MEDS: Diltiazem CD CAP* 120 MG PO SCH (08:31)
[2017-03-08] MEDS: Nystatin TOP POWDER* 15 GM BTL TOPICAL SCH (08:32)
[2017-03-08] MEDS: Tiotropium CAP.INH* CAP.INH/18 MCG (USE ORDER SET !) INH SCH (08:40)
[2017-03-08] MEDS: Mometasone/Formoter 200/5 MDI INH SCH (08:40)
[2017-03-08 13:56] VITALS: BP 134/66
--- NOTE | 2017-03-09 10:49 | DS ---
CC: Dr. Mccarthy. * DISCHARGE SUMMARY: DATE OF ADMISSION: 02/27/17 DATE OF DISCHARGE: 03/08/17 PRIMARY CARE PHYSICIAN: Dr. Mccarthy. ATTENDING PHYSICIAN: Dr. Ruben Hunter * (DICTATED BY BHUPENDRA MONTERROSO NP) PRIMARY DIAGNOSES: 1. Pneumonia. 2. Chronic obstructive pulmonary disease exacerbation. 3. Acute on chronic hypoxic respiratory failure. SECONDARY DIAGNOSES: 1. Hypertension. 2. Type 2 diabetes. 3. Depression. 4. History of cerebellar aneurysm. 5. Escamilla's esophagus. 6. Atrial fibrillation. 7. Seizures. PAST SURGICAL HISTORY: 1. History of PAGE DESIGNER shunt. 2. History of aneurysm clipping. 3. Lumbar laminectomy. 4. Hysterectomy. MEDICATIONS: Home medications are: 1. Atenolol 1000 mg p.o. q.6 hours p.r.n. 2. Symbicort 80/1.5, two puffs inhaled b.i.d. 3. Lisinopril 5 mg p.o. daily. 4. Diltiazem XR 120 mg p.o. q.a.m. 5. Citalopram 40 mg p.o. daily. 6. Cholestyramine 4 g p.o. b.i.d. or with meals. 7. Rivaroxaban 20 mg p.o. daily. 8. Alendronate 70 mg p.o. weekly. 9. Amlodipine 2.5 mg p.o. daily. 10. Omeprazole 20 mg p.o. b.i.d. 11. Atenolol 50 mg p.o. b.i.d. 12. Prednisone 10 mg p.o. daily. 13. Guaifenesin ER 1200 p.o. b.i.d. p.r.n. 14. Cefuroxime 500 mg p.o. b.i.d. 15. Tiotropium 1 cap inhaled daily. HOSPITAL COURSE: Ms. Rosado is a 71-year-old female with a past medical history of COPD, who presented to the hospital on 02/27/17 with concern for cough and shortness of breath. Please see the dictated H and P from Elemr Gerardo NP for complete details. In brief, the patient had been reporting of cough and shortness of breath. She was a little more drowsy than usual per report from family. In the emergency room, she had a chest x-ray that showed concern for pneumonia. She was admitted to the hospital out of concern for pneumonia with concomitant COPD exacerbation. Ms. Rosado was initially placed on BiPAP in the intensive care unit. Her ABG showed a respiratory acidosis with a pH of 7.25, pCO2 of 59, pO2 of 68, bicarbonate 22.7, this improved with placement of BiPAP. Her labs showed no leukocytosis. She did have a mild elevation in her troponin to 0.04. Ms. Rosado was able to be weaned from BiPAP and then was on high-flow oxygen. Over the ensuing several days, she improved steadily, but very slowly. Today she is finally off of oxygen. She ambulated on the unit with O2 saturation of 93% on room air. She states she is feeling much better. She does not have any dyspnea. She is afebrile. Her blood pressure is 142/89, heart rate 80. Ms. Rosado has recovered well from her pneumonia and COPD exacerbation. She is medically stable for discharge to home to complete a course of steroid taper and 3 more days of antibiotic therapy in addition to that received in the hospital. DISPOSITION: Home. DIET: Consistent carbohydrate. ACTIVITY: As tolerated. FOLLOWUP PLAN: Please follow up with Dr. Fernandez, appointment has been made for the patient. TIME SEEN: Approximately 60 minutes was spent on the discharge of this patient , more than half the time was spent with the patient at the bedside reviewing the events leading up to this hospitalization, performing the physical examination, and reviewing the plan of care. BHUPENDRA MONTERROSO NP [id number]/[facility] #: [id number] DOREEN
== END 2017-03-08 15:15 | disposition home health service (06) | DRG 871 ==
LOC: ED 16:11 → ICU 17:21 → MEDTELE 03-03 11:53
PROVIDERS: ADMIT Internal Medicine; ATTEND Hospitalist
PROC: 5A09557 Assistance with Respiratory Ventilation, Greater than 96 Consecutive Hours, Continuous Positive Airway Pressure (ICD-10-PCS; principal; 2017-02-27)
DX: A41.9 Sepsis, unspecified organism (principal); J15.9 Unspecified bacterial pneumonia; J96.21 Acute and chronic respiratory failure with hypoxia; J90 Pleural effusion, not elsewhere classified; E87.2 Acidosis; E11.9 Type 2 diabetes mellitus without complications; I48.91 Unspecified atrial fibrillation; R56.9 Unspecified convulsions; B96.20 Unspecified Escherichia coli [E. coli] as the cause of diseases classified elsewhere; J44.1 Chronic obstructive pulmonary disease with (acute) exacerbation; R65.20 Severe sepsis without septic shock; I10 Essential (primary) hypertension; F32.9 Major depressive disorder, single episode, unspecified; K22.70 Barrett's esophagus without dysplasia; F17.210 Nicotine dependence, cigarettes, uncomplicated; R74.8 Abnormal levels of other serum enzymes; E78.5 Hyperlipidemia, unspecified; K21.9 Gastro-esophageal reflux disease without esophagitis; M19.90 Unspecified osteoarthritis, unspecified site; H26.9 Unspecified cataract; R41.82 Altered mental status, unspecified; I89.0 Lymphedema, not elsewhere classified; R82.90 Unspecified abnormal findings in urine; Z98.2 Presence of cerebrospinal fluid drainage device; Z90.710 Acquired absence of both cervix and uterus; Z82.49 Family history of ischemic heart disease and other diseases of the circulatory system; Z83.3 Family history of diabetes mellitus; Z86.718 Personal history of other venous thrombosis and embolism; Z87.01 Personal history of pneumonia (recurrent); Z87.442 Personal history of urinary calculi; Z87.440 Personal history of urinary (tract) infections; Z90.49 Acquired absence of other specified parts of digestive tract; Z80.3 Family history of malignant neoplasm of breast; Z23 Encounter for immunization; Z79.01 Long term (current) use of anticoagulants; Z79.52 Long term (current) use of systemic steroids
CPT/HCPCS: 36415; 36600; 70450; 71010; 80048; 80053; 81003; 81015; 82803; 83605; 83735; 83880; 84145; 84484; 85025; 85610; 85730; 86140; 87077; 87086; 87186; 87502; 87641; 87899; 90686; 93005; 94640; 94660; 94760; A9270-GY; J0360; J0456; J0696; J1940; J2930; J7512

== ENCOUNTER 2017-04-10 03:21 | Inpatient (IN) | payer MEDICARE ==
[2017-04-10] MEDS ORDERED: methylPREDNISolone 125 MG* 2 ML VIAL IV ONE (03:37)
[2017-04-10] MEDS ORDERED: Albuterol/Ipratropium NEB.SOL* Albuterol 2.5 MG/Ipratropium 0.5 MG 3 ML INH ONE (03:37)
[2017-04-10] MEDS ORDERED: NS 0.9% 1000 ML*IV.FLUID IV ONE (04:15)
[2017-04-10] MEDS ORDERED: Piperacillin/Tazobac ADVAN(*) 3.375 GM in NS 0.9% 100 ML* 100 ML IVPB ONE (04:15)
[2017-04-10 04:51] LABS: ABS Basophils 0.1 10^3/ul (0-0.2); ABS Eosinophils 0 10^3/ul (0-0.6); ABS Lymphocytes 0.3 10^3/ul (1.0-4.8); ABS Monocytes 0.4 10^3/ul (0-0.8); ABS Neutrophils 10.3 10^3/ul (1.5-7.7); ABS Nucleated RBC 0.01 10^3/ul; Eosinophil % 0.1 % (0-6); Hematocrit 40 % (35-47); Lymphocyte % 2.6 % (25-47); Mean Corpuscular HGB Conc 33 g/dl (31-36); Mean Corpuscular Hemoglobin 31 pg (27-31); Mean Corpuscular Volume 93 fL (80-97); Mean Platelet Volume 8 um3 (7.4-10.4); Nucleated Red Blood Cells % 0.1; Platelet Count 172 10^3/ul (150-450); Red Blood Count 4.25 10^6/ul (4.0-5.4); Red Cell Distribution Width 17 % (10.5-15); White Blood Count 11.1 10^3/ul (3.5-10.8)
[2017-04-10 04:59] LABS: INR 1.47 (0.77-1.02)
[2017-04-10] MEDS ORDERED: Vancomycin(*) 1,000 MG VIAL IVPB SCH (05:00)
[2017-04-10] MEDS ORDERED: Vancomycin(*) 1,750 MG in NS 0.9% 500 ML* 500 ML IVPB ONE (05:00)
[2017-04-10 05:09] LABS: EGFR Non-African American 47.5 (>60)
--- NOTE | 2017-04-10 06:13 | ED ---
Fina Quiroz Emily, scribed for CindyChandu on 04/10/17 at 0356 . Shortness of Breath - HPI Summary HPI Summary: This patient is a 71 year old F BIBA to [facility] with a chief complaint of SOB that began MANAGER WOUND CARE. Per EMS, pt is on BiPAP nightly, and was not on it tonight. The patient rates the pain 0/10 in severity. Symptoms aggravated by nothing. Symptoms alleviated by nothing. Family reports that the pt could not catch her breath and could not ambulate. - History of Current Complaint Chief Complaint: EDRespiratoryDistress Time Seen by Provider: 04/10/17 03:25 Hx Obtained From: Patient, EMS Onset/Duration: Sudden Onset, Lasting Hours, Still Present Timing: Constant Current Severity: Mild Aggrevating Factors: Nothing Alleviating Factors: Nothing - Allergy/Home Medications Allergies/Adverse Reactions: Allergies Allergy/AdvReac Type Severity Reaction Status Date / Time No Known Allergies Allergy Verified 11/17/13 12:17 PMH/Surg Hx/FS Hx/Imm Hx Previously Healthy: No Endocrine/Hematology History: Reports: Hx Diabetes Denies: Hx Anticoagulant Therapy, Hx Thyroid Disease, Hx Anemia, Hx Unexplained Bleeding Cardiovascular History: Reports: Hx Aneurysm - CEREBRAL ANEURYSM WITH CLIP, Hx Angina, Hx Deep Vein Thrombosis, Hx Hypercholesterolemia - HLD, Hx Hypertension , Other Cardiovascular Problems/Disorders - murmur Denies: Hx Angioplasty, Hx Auto Implanted Cardiovert Defib, Hx Cardiac Arrest , Hx Cardiomegaly, Hx Congestive Heart Failure, Hx Coronary Artery Disease, Hx Hypotension, Hx Pacemaker/ICD, Hx Peripheral Vascular Disease, Hx Rheumatic Fever, Hx Valvular Heart Disease Respiratory History: Reports: Hx Chronic Obstructive Pulmonary Disease (COPD), Hx Pneumonia, Other Respiratory Problems/Disorders - HX INTUBATION 2013 W/FLU A Denies: Hx Asthma, Hx Chronic Bronchitis, Hx Pleural Effusion, Hx Pulmonary Edema, Hx Pulmonary Embolism, Hx Seasonal Allergies, Hx Sleep Apnea GI History: Reports: Hx Gall Bladder Disease, Hx Gastroesophageal Reflux Disease - TAKES OMEPRAZOLE, Hx Ulcer - GI, Other GI Disorders - BARRETTS ESOPHAGUS Denies: Hx Cirrhosis, Hx Diverticulosis, Hx Gastrointestinal Bleed, Hx Irritable Bowel History: Reports: Hx Kidney Stones - 2 WEEKS AGO, Hx Renal Disease - URINARY SEPSIS, Other Problems/Disorders - RENAL INSUFF Denies: Hx Dialysis Musculoskeletal History: Reports: Hx Arthritis, Hx Back Problems, Hx Bursitis, Other Musculoskeletal History - hernia Sensory History: Reports: Hx Cataracts, Hx Contacts or Glasses Denies: Hx Hearing Aid Opthamlomology History: Reports: Hx Cataracts, Hx Contacts or Glasses Neurological History: Reports: Hx Seizures, Other Neuro Impairments/Disorders - CEREBRAL ANEURYSM Denies: Hx Dementia, Hx Developmental Delay, Hx Headaches, Hx Migraine, Hx Nerve Disease, Hx Spinal Cord Injury, Hx Transient Ischemic Attacks (TIA) Psychiatric History: Denies: Hx Panic Disorder, Hx Substance Abuse - Surgical History Surgery Procedure, Year, and Place: RN WOUND SHUNT 2002- PER [place] SCAN W/O XRAYS , NON-PROGRAMMABLE. LUMBAR LAMINECTOMY. CHOLECYSTECTOMY. CEREBRAL ANEURYSM CLIPPING 2002. FOOT SURGERY 2001. PICC LINE 2013. HYSTERECTOMY Hx Anesthesia Reactions: No - Immunization History Date of Tetanus Vaccine: Unknown Date of Influenza Vaccine: Unk Infectious Disease History: No Infectious Disease History: Denies: Hx Hepatitis, Hx Human Immunodeficiency Virus (HIV), Hx Shingles, Hx Tuberculosis, Traveled Outside the [place] in Last 30 Days - Family History Known Family History: Positive: Cardiac Disease - CAD, Other - neg: Breast CA - Social History Occupation: Retired Lives: With Family Alcohol Use: None Hx Substance Use: No Substance Use Type: Reports: None Hx Tobacco Use: Yes Smoking Status (MU): Heavy Every Day Tobacco Smoker Type: Cigarettes Amount Used/How Often: 1ppd Length of Time of Smoking/Using Tobacco: 40years Have You Smoked in the Last Year: Yes Review of Systems Negative: Fever Positive: Shortness Of Breath All Other Systems Reviewed And Are Negative: Yes Physical Exam - Summary Physical Exam Summary: Appearance: lethargic Skin: warm, dry, reflects adequate perfusion Head/face: normal Eyes: EOMI, MAGGIE ENT: normal Neck: supple, non-tender Respiratory: occasional wheeze, poor air entry Cardiovascular: RRR, pulses symmetrical, bilateral pedal edema Abdomen: non-tender, soft Bowel: present Musculoskeletal: normal, strength/ROM intact Neuro: Lethargic Triage Information Reviewed: Yes Vital Signs On Initial Exam: Initial Vitals Temp Pulse Resp BP Pulse Ox 97 F 100 28 110/65 90 04/10/17 03:29 04/10/17 03:29 04/10/17 03:29 04/10/17 03:29 04/10/17 03:29 Vital Signs Reviewed: Yes Appearance: Positive: Ill-Appearing Diagnostics - Vital Signs Vital Signs Temp Pulse Resp BP Pulse Ox 04/10/17 03:29 97 F 100 28 110/65 90 - Laboratory Lab Results: Lab Results 04/10/17 04/10/17 04/10/17 Range/Units 03:45 04:28 04:28 WBC (3.5-10.8) 10^3/ul RBC (4.0-5.4) 10^6/ul Hgb (12.0-16.0) g/dl Hct (35-47) % MCV (80-97) fL MCH (27-31) pg MCHC (31-36) g/dl RDW (10.5-15) % Plt Count (150-450) 10^3/ul MPV (7.4-10.4) um3 Neut % (Auto) (38-83) % Lymph % (Auto) (25-47) % [place] % (Auto) (1-9) % Eos % (Auto) (0-6) % Baso % (Auto) (0-2) % Absolute Neuts (auto) (1.5-7.7) 10^3/ul Absolute Lymphs (auto) (1.0-4.8) 10^3/ul Absolute Monos (auto) (0-0.8) 10^3/ul Absolute Eos (auto) (0-0.6) 10^3/ul Absolute Basos (auto) (0-0.2) 10^3/ul Absolute Nucleated RBC 10^3/ul Nucleated RBC % INR (Anticoag Therapy) 1.47 H (0.77-1.02) APTT 38.7 H (26.0-36.3) seconds Patient Temperature Not Reportable ABG pH 7.26 L (7.35-7.45) ABG pCO2 54 H (35-45) mmHg ABG pO2 94 (80-100) mmHg ABG HCO3 22.2 (19-31) mmol/L ABG O2 Saturation 98.5 H (95-98) % ABG Base Excess -3.4 L (-2.0-2.0) Respiration Rate Not Reportable O2 Delivery Device Not Reportable Ventilator Type Not Reportable Vent Mode Not Reportable FiO2 100 Inspiratory Time Not Reportable PEEP Not Reportable Pressure Support Not Reportable Pressure Control Not Reportable EPAP 10 IPAP 16 BiPAP Not Reportable Sodium (133-145) mmol/L Potassium (3.5-5.0) mmol/L Chloride (101-111) mmol/L Carbon Dioxide (22-32) mmol/L Anion Gap (2-11) mmol/L BUN (6-24) mg/dL Creatinine (0.51-0.95) mg/dL Est GFR ( Amer) (>60) Est GFR (Non-Af Amer) (>60) BUN/Creatinine Ratio (8-20) Glucose (70-100) mg/dL Lactic Acid (0.5-2.0) mmol/L Calcium (8.6-10.3) mg/dL Total Bilirubin (0.2-1.0) mg/dL AST (13-39) U/L ALT (7-52) U/L Alkaline Phosphatase (34-104) U/L Troponin I (<0.04) ng/mL B-Natriuretic Peptide 867 H ( - 100) pg/mL Total Protein (6.4-8.9) g/dL Albumin (3.2-5.2) g/dL Globulin (2-4) g/dL Albumin/Globulin Ratio (1-3) 04/10/17 04/10/17 04/10/17 Range/Units 04:28 04:28 04:28 WBC 11.1 H (3.5-10.8) 10^3/ul RBC 4.25 (4.0-5.4) 10^6/ul Hgb 13.0 (12.0-16.0) g/dl Hct 40 (35-47) % MCV 93 (80-97) fL MCH 31 (27-31) pg MCHC 33 (31-36) g/dl RDW 17 H (10.5-15) % Plt Count 172 (150-450) 10^3/ul MPV 8 (7.4-10.4) um3 Neut % (Auto) 92.9 H (38-83) % Lymph % (Auto) 2.6 L (25-47) % [place] % (Auto) 3.8 (1-9) % Eos % (Auto) 0.1 (0-6) % Baso % (Auto) 0.6 (0-2) % Absolute Neuts (auto) 10.3 H (1.5-7.7) 10^3/ul Absolute Lymphs (auto) 0.3 L (1.0-4.8) 10^3/ul Absolute Monos (auto) 0.4 (0-0.8) 10^3/ul Absolute Eos (auto) 0 (0-0.6) 10^3/ul Absolute Basos (auto) 0.1 (0-0.2) 10^3/ul Absolute Nucleated RBC 0.01 10^3/ul Nucleated RBC % 0.1 INR (Anticoag Therapy) (0.77-1.02) APTT (26.0-36.3) seconds Patient Temperature ABG pH (7.35-7.45) ABG pCO2 (35-45) mmHg ABG pO2 (80-100) mmHg ABG HCO3 (19-31) mmol/L ABG O2 Saturation (95-98) % ABG Base Excess (-2.0-2.0) Respiration Rate O2 Delivery Device Ventilator Type Vent Mode FiO2 Inspiratory Time PEEP Pressure Support Pressure Control EPAP IPAP BiPAP Sodium 137 (133-145) mmol/L Potassium 3.9 (3.5-5.0) mmol/L Chloride 105 (101-111) mmol/L Carbon Dioxide 26 (22-32) mmol/L Anion Gap 6 (2-11) mmol/L BUN 12 (6-24) mg/dL Creatinine 1.13 H (0.51-0.95) mg/dL Est GFR ( Amer) 61.0 (>60) Est GFR (Non-Af Amer) 47.5 (>60) BUN/Creatinine Ratio 10.6 (8-20) Glucose 233 H (70-100) mg/dL Lactic Acid 1.9 (0.5-2.0) mmol/L Calcium 9.1 (8.6-10.3) mg/dL Total Bilirubin 1.10 H (0.2-1.0) mg/dL AST 7 L (13-39) U/L ALT 4 L (7-52) U/L Alkaline Phosphatase 73 (34-104) U/L Troponin I 0.02 (<0.04) ng/mL B-Natriuretic Peptide ( - 100) pg/mL Total Protein 6.8 (6.4-8.9) g/dL Albumin 3.7 (3.2-5.2) g/dL Globulin 3.1 (2-4) g/dL Albumin/Globulin Ratio 1.2 (1-3) Result Diagrams: 04/10/17 04:28 04/10/17 04:28 Lab Statement: Any lab studies that have been ordered have been reviewed, and results considered in the medical decision making process. - Radiology CXR Radiology Interpretation Completed By: ED Physician - CXR reveals right lower lobe pneumonia, pleural effusion, and respiratory failure. - EKG 0431 Cardiac Rate: NL EKG Rhythm: Atrial Fibrillation - 91 BPM EKG Comparison: No Significant Change Course/Dx - Course Assessment/Plan: This patient is a 71 year old F BIBA to [facility] with a chief complaint of SOB that began MANAGER WOUND CARE. Per EMS, pt is on BiPAP nightly, and was not on it tonight. Physical Exam Findings. Lethargic, bilateral pedal edema, occasional wheeze, poor air entry,. An EKG taken at 0431 reveals AFib at 91 BPM. No acute changes. CXR reveals right lower lobe pneumonia, pleural effusion , and respiratory failure. Bloodwork obtained. In the ED course the patient was given Duoneb, Solu-MEDROL, fluids, and Zosyn. We discussed patient care with Dr. Cao and they recommended pt be admitted for further evaluation. - Diagnoses Differential Diagnosis/HQI/PQRI: Positive: Asthma, Bronchitis, CHF, COPD Exacerbation, Pneumonia, Pulmonary Edema Provider Diagnoses: Respiratory failure, Right lower lobe pneumonia, Pleural effusion, right, Hypercarbia, Sepsis, COPD exacerbation, COPD (chronic obstructive pulmonary disease), Severe sepsis, Acute respiratory failure - Physician Notifications Discussed Care of Patient With: Nithin Cao Time Discussed With Above Provider: 04:30 Instructed by Provider To: Other - Consult with Dr. Cao (hospitalist) at 0430. He agrees to admit the pt for further evaluation. - Critical Care Time Critical Care Time: 30-74 min - 60 minutes Discharge - Discharge Plan Condition: Stable Disposition: ADMITTED TO [facility] Referrals: Morgan Mccarthy MD [Primary Care Provider] - The documentation as recorded by the Fina de oliveira Emily accurately reflects the service I personally performed and the decisions made by , Chandu White.
--- NOTE | 2017-04-10 07:16 | HP ---
H&P (Free Text) History and Physical: PCP: Pal Mccarthy MD Date/Time: 04/10/2017 0530 CC: SOB HPI: Mrs Rosado is a 71YO female HX COPD, AFIB, DM2 who was admitted to [facility] -03/08/2017 for pneumonia, COPD, & acute on chronic hypoxic respiratory failure managed with BiPap. She was doing well per her sister with whom she lives and who is present at the bedside up until two days ago when she began having increasing SOB, fatigue, & generalized weakness. She reported subjective fevers starting last night along with sweats, cough, and mild chest congestion worsening tonight and prompting evaluation. PMedHx COPD DM2 CKD stg 3a AFIB seizure disorder cerebellar aneurysm s/p clipping HTN HLD Escamilla's esophagus GERD depression osteoporosis Ambulatory Orders Nursing to reconcile. Omeprazole CAP* [Prilosec CAP* 20 MG] 20 mg PO BID 07/22/12 Acetaminophen [Acetaminophen Extra Stren] 1,000 mg PO Q6H PRN 11/05/13 Lisinopril TAB* [Prinivil TAB 10 MG*] 5 mg PO DAILY 03/24/15 Alendronate (NF) [Fosamax (NF)] 70 mg PO WEEKLY 02/27/17 Atenolol TAB* [Tenormin TAB* 25 MG] 50 mg PO BID 02/27/17 Budesonide/Formote 80/4.5(NF) [Symbicort 80/4.5 (NF)] 2 puff INH BID 02/27/17 Cholestyramine Resin* [Questran*] 4 gm PO BID AC 02/27/17 Citalopram TAB* [Celexa TAB*] 40 mg PO DAILY 02/27/17 Diltiazem XR EXTEND Releas(NF) [Cartia XR (NF)] 120 mg PO QAM 02/27/17 Rivaroxaban TAB(*) [Xarelto 20 mg] 20 mg PO DAILY 02/27/17 amLODIPine TAB* [Norvasc 5 mg TAB*] 2.5 mg PO DAILY 02/27/17 Tiotropium CAP.INH* [Spiriva CAP.INH*] 1 cap INH DAILY #30 cap.inh 03/08/17 ceFUROXime TAB(*) [Ceftin TAB 250 MG(*)] 500 mg PO BID #6 tab 03/08/17 guaiFENesin ER TAB [Mucinex*] 1,200 mg PO BID PRN #60 tab.er 03/08/17 predniSONE TAB* [Deltasone TAB*] 10 mg PO DAILY #30 tab 03/08/17 Allergies No Known Allergies Allergy (Verified 11/17/13 12:17) PSurgHx cerebellar aneurysm clipping LACE [employer] shunt lumbar surgery hysterectomy SocHx: 1/2PPD cigarettes, no alcohol or recreational drugs; lives with her sister; full code status FamHx: positive for aortic stenosis & DM2 ROS: as above, otherwise reviewed and all were negative vitals: Vital Signs Temp 36.1 C 04/10/17 03:29 Pulse 89 04/10/17 04:03 Resp 22 04/10/17 04:03 BP 110/65 04/10/17 03:29 Pulse Ox 99 04/10/17 04:03 Intake & Output 04/09/17 04/09/17 04/10/17 11:59 23:59 11:59 Intake Total 100 Balance 100 Weight 113.398 kg Intake: IV Fluids 100 Constitutional: NAD, normally developed, morbidly obese white female HEENM: atraumatic; sclera/conjunctiva: anicteric/mildly injected OU; hearing: unable to adequately assess; oropharynx: clear Neck: soft tissue: non-tender; thyroid: normal Pulmonary: scant end-expiratory wheeze, poor aeration, mild accessory muscle use CV: RR/RR, normal S1S2, no carotid bruit, no jugular venous distention, 2+ B DP/ PT, 1+ BLE edema Abdominal: soft, non-distended, non-tender, no rebound/guarding/rigidity, normoactive bowel sounds, no hepatosplenomegaly or masses, no costovertebral angle tenderness Musculoskeletal: general: grossly intact, non-tender to palpation Integumental: BLE with erythema & dry hyperkeratosis with thick silvery scale Psychiatric orientation: somnolent but arousable, oriented to PP, loosely to situation affect: somnolent mood: cooperative eye contact: poor content: minimal, unreliable responses: timely insight: poor Testing: Lab Results 04/10/17 04/10/17 04/10/17 Range/Units 03:45 04:28 04:28 WBC (3.5-10.8) 10^3/ul RBC (4.0-5.4) 10^6/ul Hgb (12.0-16.0) g/dl Hct (35-47) % MCV (80-97) fL MCH (27-31) pg MCHC (31-36) g/dl RDW (10.5-15) % Plt Count (150-450) 10^3/ul MPV (7.4-10.4) um3 Neut % (Auto) (38-83) % Lymph % (Auto) (25-47) % Duval % (Auto) (1-9) % Eos % (Auto) (0-6) % Baso % (Auto) (0-2) % Absolute Neuts (auto) (1.5-7.7) 10^3/ul Absolute Lymphs (auto) (1.0-4.8) 10^3/ul Absolute Monos (auto) (0-0.8) 10^3/ul Absolute Eos (auto) (0-0.6) 10^3/ul Absolute Basos (auto) (0-0.2) 10^3/ul Absolute Nucleated RBC 10^3/ul Nucleated RBC % INR (Anticoag Therapy) 1.47 H (0.77-1.02) APTT 38.7 H (26.0-36.3) seconds Patient Temperature Not Reportable ABG pH 7.26 L (7.35-7.45) ABG pH (Temp Correct) ABG pCO2 54 H (35-45) mmHg ABG pCO2 (Temp Corrct ABG pO2 94 (80-100) mmHg ABG pO2 (Temp Correct ABG HCO3 22.2 (19-31) mmol/L ABG O2 Saturation 98.5 H (95-98) % ABG Base Excess -3.4 L (-2.0-2.0) Respiration Rate Not Reportable O2 Delivery Device Not Reportable Ventilator Type Not Reportable Vent Mode Not Reportable FiO2 100 Inspiratory Time Not Reportable PEEP Not Reportable Pressure Support Not Reportable Pressure Control Not Reportable EPAP 10 IPAP 16 BiPAP Not Reportable Sodium (133-145) mmol/L Potassium (3.5-5.0) mmol/L Chloride (101-111) mmol/L Carbon Dioxide (22-32) mmol/L Anion Gap (2-11) mmol/L BUN (6-24) mg/dL Creatinine (0.51-0.95) mg/dL Est GFR ( Amer) (>60) Est GFR (Non-Af Amer) (>60) BUN/Creatinine Ratio (8-20) Glucose (70-100) mg/dL Lactic Acid (0.5-2.0) mmol/L Calcium (8.6-10.3) mg/dL Total Bilirubin (0.2-1.0) mg/dL AST (13-39) U/L ALT (7-52) U/L Alkaline Phosphatase (34-104) U/L Troponin I (<0.04) ng/mL B-Natriuretic Peptide 867 H ( - 100) pg/mL Total Protein (6.4-8.9) g/dL Albumin (3.2-5.2) g/dL Globulin (2-4) g/dL Albumin/Globulin Ratio (1-3) 04/10/17 04/10/17 04/10/17 Range/Units 04:28 04:28 04:28 WBC 11.1 H (3.5-10.8) 10^3/ul RBC 4.25 (4.0-5.4) 10^6/ul Hgb 13.0 (12.0-16.0) g/dl Hct 40 (35-47) % MCV 93 (80-97) fL MCH 31 (27-31) pg MCHC 33 (31-36) g/dl RDW 17 H (10.5-15) % Plt Count 172 (150-450) 10^3/ul MPV 8 (7.4-10.4) um3 Neut % (Auto) 92.9 H (38-83) % Lymph % (Auto) 2.6 L (25-47) % Duval % (Auto) 3.8 (1-9) % Eos % (Auto) 0.1 (0-6) % Baso % (Auto) 0.6 (0-2) % Absolute Neuts (auto) 10.3 H (1.5-7.7) 10^3/ul Absolute Lymphs (auto) 0.3 L (1.0-4.8) 10^3/ul Absolute Monos (auto) 0.4 (0-0.8) 10^3/ul Absolute Eos (auto) 0 (0-0.6) 10^3/ul Absolute Basos (auto) 0.1 (0-0.2) 10^3/ul Absolute Nucleated RBC 0.01 10^3/ul Nucleated RBC % 0.1 INR (Anticoag Therapy) (0.77-1.02) APTT (26.0-36.3) seconds Patient Temperature ABG pH (7.35-7.45) ABG pH (Temp Correct) ABG pCO2 (35-45) mmHg ABG pCO2 (Temp Corrct ABG pO2 (80-100) mmHg ABG pO2 (Temp Correct ABG HCO3 (19-31) mmol/L ABG O2 Saturation (95-98) % ABG Base Excess (-2.0-2.0) Respiration Rate O2 Delivery Device Ventilator Type Vent Mode FiO2 Inspiratory Time PEEP Pressure Support Pressure Control EPAP IPAP BiPAP Sodium 137 (133-145) mmol/L Potassium 3.9 (3.5-5.0) mmol/L Chloride 105 (101-111) mmol/L Carbon Dioxide 26 (22-32) mmol/L Anion Gap 6 (2-11) mmol/L BUN 12 (6-24) mg/dL Creatinine 1.13 H (0.51-0.95) mg/dL Est GFR ( Amer) 61.0 (>60) Est GFR (Non-Af Amer) 47.5 (>60) BUN/Creatinine Ratio 10.6 (8-20) Glucose 233 H (70-100) mg/dL Lactic Acid 1.9 (0.5-2.0) mmol/L Calcium 9.1 (8.6-10.3) mg/dL Total Bilirubin 1.10 H (0.2-1.0) mg/dL AST 7 L (13-39) U/L ALT 4 L (7-52) U/L Alkaline Phosphatase 73 (34-104) U/L Troponin I 0.02 (<0.04) ng/mL B-Natriuretic Peptide ( - 100) pg/mL Total Protein 6.8 (6.4-8.9) g/dL Albumin 3.7 (3.2-5.2) g/dL Globulin 3.1 (2-4) g/dL Albumin/Globulin Ratio 1.2 (1-3) 04/10/17 Range/Units 06:24 WBC (3.5-10.8) 10^3/ul RBC (4.0-5.4) 10^6/ul Hgb (12.0-16.0) g/dl Hct (35-47) % MCV (80-97) fL MCH (27-31) pg MCHC (31-36) g/dl RDW (10.5-15) % Plt Count (150-450) 10^3/ul MPV (7.4-10.4) um3 Neut % (Auto) (38-83) % Lymph % (Auto) (25-47) % Duval % (Auto) (1-9) % Eos % (Auto) (0-6) % Baso % (Auto) (0-2) % Absolute Neuts (auto) (1.5-7.7) 10^3/ul Absolute Lymphs (auto) (1.0-4.8) 10^3/ul Absolute Monos (auto) (0-0.8) 10^3/ul Absolute Eos (auto) (0-0.6) 10^3/ul Absolute Basos (auto) (0-0.2) 10^3/ul Absolute Nucleated RBC 10^3/ul Nucleated RBC % INR (Anticoag Therapy) (0.77-1.02) APTT (26.0-36.3) seconds Patient Temperature Not Reportable ABG pH 7.26 L (7.35-7.45) ABG pH (Temp Correct) Not Reportable ABG pCO2 50 H (35-45) mmHg ABG pCO2 (Temp Corrct Not Reportable ABG pO2 82 (80-100) mmHg ABG pO2 (Temp Correct Not Reportable ABG HCO3 21.0 (19-31) mmol/L ABG O2 Saturation 97.7 (95-98) % ABG Base Excess -4.9 L (-2.0-2.0) Respiration Rate Not Reportable O2 Delivery Device Ventilator Type Not Reportable Vent Mode Not Reportable FiO2 100 Inspiratory Time Not Reportable PEEP Not Reportable Pressure Support Not Reportable Pressure Control Not Reportable EPAP 10 IPAP 20 BiPAP Not Reportable Sodium (133-145) mmol/L Potassium (3.5-5.0) mmol/L Chloride (101-111) mmol/L Carbon Dioxide (22-32) mmol/L Anion Gap (2-11) mmol/L BUN (6-24) mg/dL Creatinine (0.51-0.95) mg/dL Est GFR ( Amer) (>60) Est GFR (Non-Af Amer) (>60) BUN/Creatinine Ratio (8-20) Glucose (70-100) mg/dL Lactic Acid (0.5-2.0) mmol/L Calcium (8.6-10.3) mg/dL Total Bilirubin (0.2-1.0) mg/dL AST (13-39) U/L ALT (7-52) U/L Alkaline Phosphatase (34-104) U/L Troponin I (<0.04) ng/mL B-Natriuretic Peptide ( - 100) pg/mL Total Protein (6.4-8.9) g/dL Albumin (3.2-5.2) g/dL Globulin (2-4) g/dL Albumin/Globulin Ratio (1-3) ECG, personally reviewed: AFIB rate 91, no ischemia CXR, personally reviewed: enlarged L pleural effusion & congestive changes most consistent with pulmonary edema vs pneumonia & effusion Impression: 71F presenting in COPD exacerbation, CHF, possible relapsing pneumonia, & acute on chronic hypoxic respiratory failure DIAGNOSIS & PLAN Primary acute on chronic hypoxic respiratory failure : NIPPV : ICU monitoring : supportive care acute heart failure, suspect diastolic : hold diuresis in setting of acute urinary retention & possible post- obstructive diuresis : check ECHO : strict I&Os : daily weights COPD exacerbation : albuterol nebs : mometasone/formoterol : IV methylprednisolone : tiotropium : BiPap as above : incentive spirometry once off BiPap concern for relapsing pneumonia : IV vancomycin, cefepime, & levofloxacin for potential HCAP : IVFs will be held as her pressures are good and she has evidence of heart failure : check S pneumo urine antigen : check rapid influenza acute urinary retention : jimenez to gravity returned 1200cc bloody urine : monitor closely for post-obstructive diuresis : check UA Secondary DM2 : check A1c : NPO for NIPPV : correctional insulin CKD stg 3a : periodic monitoring AFIB : rate controlled : review meds once reconciled seizure disorder : review meds once reconciled cerebellar aneurysm s/p clipping : no acute issues HTN : review meds once reconciled HLD : review meds once reconciled Escamilla's esophagus GERD : review meds once reconciled depression : review meds once reconciled osteoporosis : review meds once reconciled Admission Rational: inpatient ICU for acute on chronic hypoxic respiratory failure requiring NIPPV; inappropriate for outpatient setting DVTp: continue rivaroxaban once reconciled Code Status: full HCP: sister
[2017-04-10] MEDS ORDERED: Albuterol 2.5 MG/3 ML NEB.SOL* (0.083%) INH PRN (07:23)
[2017-04-10] MEDS ORDERED: Acetaminophen SUPP* 650 MG SUPP PR PRN (07:23)
[2017-04-10] MEDS ORDERED: Morphine INJ* 2 MG/ML 1 ML SYRINGE (TWO MG - NEW SYRINGE VERSION) IV PRN (07:24)
[2017-04-10] MEDS ORDERED: Ondansetron INJ* 2 MG/ML VIAL IV PRN (07:25)
[2017-04-10 07:50] LABS: Urine Appearance Clear; Urine Blood Negative (Negative); Urine Color Yellow; Urine Ketones Negative (Negative); Urine Protein Negative (Negative); Urine Specific Gravity 1.017 (1.010-1.030); Urine Urobilinogen Negative (Negative)
[2017-04-10] MEDS ORDERED: Vancomycin per Pharmacy* NOTE FOLLOW UP SCH (08:00)
[2017-04-10] MEDS ORDERED: Levofloxacin 750 MG IVPREMIX(* 750 MG/150 ML BAG IVPB SCH (08:00)
[2017-04-10] MEDS ORDERED: Spiriva Inhaler DEVICE* 1 EACH DEVICE INH ONE (08:00)
--- NOTE | 2017-04-10 08:11 | RAD ---
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 CARDIOMEDIASTINAL SILHOUETTE: The cardiac silhouette is mildly enlarged. This is likely accentuated by the low lung volumes. The cardiomediastinal silhouette is otherwise normal for portable technique. PLEURA: There is blunting of the costophrenic angles bilaterally, greater on the right than on the left. LUNG PARENCHYMA: The lung volumes are low. There is a diffuse reticular pattern ABDOMEN: The upper abdomen is clear. There is no subphrenic gas. BONES AND SOFT TISSUES: No bone or soft tissue abnormalities are noted. IMPRESSION: 1. LOW LUNG VOLUMES. 2. MILD THYROMEGALY. 3. SMALL BILATERAL PLEURAL EFFUSIONS. 4. PULMONARY INTERSTITIAL EDEMA.
[2017-04-10] MEDS: Mometasone/Formoter 200/5 MDI INH SCH ×2 (09:00→20:54)
[2017-04-10] MEDS: Insulin LISPRO* 1 UNITS UNIT SUBCUT SCH ×4 (09:07→20:22)
[2017-04-10] MEDS: Pantoprazole IV* 40 MG IV SCH (09:07)
[2017-04-10] MEDS: Tiotropium CAP.INH* CAP.INH/18 MCG (USE ORDER SET !) INH SCH (09:27)
--- NOTE | 2017-04-10 11:45 | ECHO ---
Patient: LINDA ELAINE [facility] Rec#: [id number] : 1945 Date: 04/10/2017 Age: 71y Height: 165.1 cm / 65.0 in Weight: 113.4 kg / 249.9 lbs Sex: F BSA: 2.17 Room#: [facility] Admit Date#: 04/10/2017 Type: Inpatient Referring: Nithin Cao MD Reading: Joshua Nicole MD Aircraft [employer] Technical Officer: Lis Mcintosh RDCS CC: Morgan Mccarthy MD Transthoracic Echocardiogram Indication: CHF BP: 110/65 HR: 67 Rhythm: A-Fib Findings History: DM, cerebral aneurysm s/p clipping, angina, DVT, HLD, HTN, COPD, GERD, renal disease, seizures, bilateral pedal edema, respiratory failure. Technical Comments: The study quality is fair. The study is technically limited due to poor parasternal windows. Completed at 1100. Left Ventricle: The left ventricular chamber size is normal. Moderate concentric left ventricular hypertrophy is observed.Mild increase LV outflow velocity noted. Global left ventricular wall motion and contractility are within normal limits. The left ventricle appears hyperdynamic. The estimated ejection fraction is greater than 65%. The assessment of diastolic function is non-diagnostic. Left Atrium: The left atrium is moderately dilated. Right Ventricle: The right ventricle is not well visualized. The right ventricular cavity size is normal. The right ventricular global systolic function is low normal. Right Atrium: The right atrium is moderately dilated. Aortic Valve: The aortic valve is trileaflet. The aortic valve leaflets are moderately thickened. There is evidence of aortic sclerosis without stenosis. There is a trace of aortic regurgitation. There is no evidence of aortic stenosis. Mitral Valve: There is posterior mitral annular calcification. The mitral valve leaflets are mildly thickened. There is mild mitral regurgitation. This may be underestimated due to possible eccentricity of the jet. There is mild mitral stenosis. Tricuspid Valve: The tricuspid valve leaflets are mildly thickened. There is mild to moderate tricuspid regurgitation. The right ventricular systolic pressure is estimated at 97 mmHg. There is evidence of severe pulmonary hypertension. There is no tricuspid stenosis. Pulmonic Valve: The pulmonic valve appears normal. There is a trace pulmonic regurgitation. There is no pulmonic stenosis. Pericardium: There is no significant pericardial effusion. A pericardial fat pad is visualized. Aorta: There is mild dilatation of the ascending aorta. The aortic arch is not well visualized. The aortic root is normal in size. Pulmonary Artery: The main pulmonary artery is not well visualized. Venous: The inferior vena cava is dilated. There is less than 50% respiratory change in the inferior vena cava dimension. Conclusions Moderate concentric left ventricular hypertrophy is observed with mild LV outflow gradient at rest.. The left ventricle appears hyperdynamic. The estimated ejection fraction is greater than 65%. The left atrium is moderately dilated. There is a trace of aortic regurgitation. There is mild to moderate tricuspid regurgitation. There is evidence of severe pulmonary hypertension. The right ventricular systolic pressure is estimated at 97 mmHg. There is a trace pulmonic regurgitation. There is mild mitral regurgitation. This may be underestimated due to possible eccentricity of the jet. There is mild mitral stenosis. Compared to report of study from 09/19/2013 the left and right atria are larger (were mildly dilated and normal respectively), the tricuspid regurgitation has worsened (was mild) and the degree of pulmonary HTN has worsened (was moderate , PA systolic pressure 53 mm hg). Measurements Name Value Normal Range RVIDd (AP) 2D 4.1 cm (0.9 - 2.6) RVDdMajor (2D) 3.7 cm (2.2 - 4.4) RAd ISD 4CH 5.7 cm (3.4 - 4.9) RA (A4C)W 3.7 cm (2.9 - 4.6) IVSd (2D) 1.3 cm (0.6 - 1) LVPWd (2D) 1.3 cm (0.6 - 1) LVIDd (2D) 4.3 cm (3.6 - 5.4) LVIDs (2D) 2.3 cm - LV FS (2D) 46 % (25 - 45) Aortic Annulus 1.8 cm (1.4 - 2.6) Ao root diameter (2D) 3 cm (2.1 - 3.5) Ascending Ao 3.9 cm (2.1 - 3.4) LA dimension (AP) 2D 4.8 cm (2.3 - 3.8) LAd ISD 4CH 5.9 cm (2.9 - 5.3) LA ISD 4CH W 5.1 cm (2.5 - 4.5) Name Value Normal Range LA ESV SP 4CH (A/L) 101 ml - LA ESV SP 2CH (A/L) 91 ml - LA ESV BP (A/L) 106 ml - LA ESV BP (A/L) index 49 ml/m2 - LA ESV SP 4CH (MOD) 96 ml - LA ESV SP 2CH (MOD) 88 ml - Name Value Normal Range MV E-wave Vmax 2 m/sec - MV deceleration time 142.9 msec - MV A-wave Vmax 0.03 m/sec - MV E:A ratio 78.64 ratio - LV septal e' Vmax 0.05 m/sec - LV lateral e' Vmax 0.06 m/sec - LV E:e' septal ratio 40 ratio - LV E:e' lateral ratio 33.3 ratio - Name Value Normal Range AV Vmax 1.31 m/sec - AV VTI 24 cm - AV peak gradient 6.9 mmHg - AV mean gradient 4.19 mmHg - LVOT Vmax 1.13 m/sec - LVOT VTI 21.87 cm - LVOT peak gradient 5.12 mmHg - LVOT mean gradient 2.66 mmHg - BIANCA Vmax 0.48 m/sec - Name Value Normal Range MV Vmax 2.1 m/sec - MV VTI 29.5 cm - MV peak gradient 18.15 mmHg - MV mean gradient 4.32 mmHg - MV PHT 52.4 msec - MR Vmax 5.05 m/sec - MR VTI 126.6 cm - Name Value Normal Range TR Vmax 4.4 m/sec - TR peak gradient 77 mmHg - RAP 20 mmHg - RVSP 97 mmHg - IVC diameter 2.4 cm - Name Value Normal Range PV Vmax 0.9 m/sec - PV peak gradient 3.34 mmHg -
[2017-04-10] MEDS ORDERED: Cefepime(*) 1 GM in NS 0.9% 50 ML* 50 ML IVPB SCH (12:00)
[2017-04-10] MEDS: Cefepime 1 GM in Dextrose(*) 1 GM/50 ML BAG IV SCH (12:02)
--- NOTE | 2017-04-10 13:49 | CONSULT ---
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 Patient comes into ER by EMS for weakness and SOB. Cough+ but no sputum. No abd pain. Nausea+, no vomiting. No icreased swelling or weight gain. Compliant with medications/ diuretics. No sick contacts recently since discharge. She states now it started some days back, she felt weak and was more short of breath, needing assistance to move around. When in ER, she was tachycardic 100, tachypneic 28, hypoxic to sats 90s, afebrile. Found to have congestion, right effusion with likely infiltrates; hypercapneic and hypoxic on ABG. Started on NC, then hiflow but once on NIV refused. Currently in bed, no distress. On 16L salter cannula. RR 18-20, sats low 90s and fluctatinig. Awake more and alert, able to give history now compared to earlier in morning. Afib, tachy 110s, BP 130s. Noted to have no urine output in ER, jimenez placed and 1-2L voided of dark urine. Currently with pinkish urine and continued output. ROS: negative except for pertinent positives mentioned above. Some limitation due to mental status. 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 Family History: CAD and breast Ca in family. Social History: Alcohol-none, Smoking- 1ppd x40yrs, Drug use-none Allergies: Allergies Allergy/AdvReac Type Severity Reaction Status Date / Time No Known Allergies Allergy Verified 11/17/13 12:17 Home Medications: Omeprazole CAP* [Prilosec CAP* 20 MG] 20 mg PO BID 07/22/12 [History Confirmed 04/10/17] Lisinopril TAB* [Prinivil TAB 10 MG*] 5 mg PO DAILY 03/24/15 [History Confirmed 04/10/17] Alendronate (NF) [Fosamax (NF)] 70 mg PO WEEKLY 02/27/17 [History Confirmed ] Atenolol TAB* [Tenormin TAB* 25 MG] 50 mg PO BID 02/27/17 [History Confirmed ] Rivaroxaban TAB(*) [Xarelto 20 mg] 20 mg PO DAILY 02/27/17 [History Confirmed ] amLODIPine TAB* [Norvasc 5 mg TAB*] 2.5 mg PO DAILY 02/27/17 [History Confirmed 04/10/17] Citalopram TAB* [CeleXA TAB*] 40 mg PO DAILY 04/10/17 [History Confirmed ] Cyanocobalamin TAB* [Vitamin B12 TAB*] 500 mcg PO DAILY 04/10/17 [History Confirmed 04/10/17] Dicyclomine CAP* [Bentyl CAP*] 10 mg PO TID 04/10/17 [History Confirmed 04/10/17 ] Diltiazem CD CAP* [Cardizem CD CAP*] 120 mg PO QAM 04/10/17 [History Confirmed 04/10/17] Ferrous Sulfate TAB* 325 mg PO DAILY 04/10/17 [History Confirmed 04/10/17] Furosemide TAB* [Lasix TAB*] 20 mg PO DAILY 04/10/17 [History Confirmed 04/10/17 ] metFORMIN* [Glucophage 500 MG TAB *] 1,000 mg PO BID 04/10/17 [History Confirmed 04/10/17] Tele: afib, tachycardic 100-120 Vitals: Vital Signs Temp 97.1 F 04/10/17 11:32 Pulse 106 04/10/17 13:30 Resp 18 04/10/17 13:30 BP 143/101 04/10/17 13:30 Pulse Ox 94 04/10/17 13:30 Intake & Output 04/09/17 04/10/17 04/10/17 18:59 06:59 18:59 Intake Total 100 434 Output Total 1400 Balance 100 -966 Weight 250 lb 200 lb 2.876 oz Intake: IV Fluids 100 250 IVPB 184 abx 184 Output: Jimenez 1400 O2/Vent: 16L salter, sats low 90s, rr 18-20 Infusions: heplock Current Medications: Acetaminophen (Tylenol Supp*) 650 mg WV Q6H PRN PRN Reason: FEVER/PAIN Albuterol (Ventolin 2.5 Mg/3 Ml Neb.Cherie*) 2.5 mg INH Q2H PRN PRN Reason: SOB/WHEEZING Albuterol (Ventolin 2.5 Mg/3 Ml Neb.Cherie*) 2.5 mg INH [id number] AWAKE [facility] Amlodipine Besylate (Norvasc Tab*) 2.5 mg PO DAILY [facility] Atenolol (Tenormin Tab*) 50 mg PO BID [facility] Diltiazem HCl (Cardizem Cd Cap*) 120 mg PO QAM [facility] Furosemide (Lasix Iv*) 20 mg IV SLOW PU ONCE ONE Stop: 04/10/17 16:01 Cefepime HCl (Maxipime 1 Gm In Dextrose Duplex (*)) 1 gm in 50 mls @ 100 mls/ hr IV Q12H [facility] Last Admin: 04/10/17 12:02 Dose: 100 mls/hr Vancomycin HCl 1,000 mg/ (Sodium Chloride) 250 mls @ 166.667 mls/hr IVPB Q12H [facility] Insulin Human Lispro (Humalog*) 0 units SUBCUT Q4H [facility] PRN Reason: Protocol Last Admin: 04/10/17 12:40 Dose: 6 units Methylprednisolone Sodium Succinate (Solu-Medrol 40 Mg) 40 mg IV Q8H [facility] Mometasone Furoate/Formoterol Fumar (Dulera 200/5 Mdi*) 2 puff INH BID [facility] Morphine Sulfate (Morphine Inj (Syringe)*) 2 mg IV Q4H PRN PRN Reason: air hunger Ondansetron HCl (Zofran Inj*) 4 mg IV Q6H PRN PRN Reason: NAUSEA Last Admin: 04/10/17 10:10 Dose: 4 mg Pantoprazole Sodium (Protonix Iv*) 40 mg IV DAILY [facility] Last Admin: 04/10/17 09:07 Dose: 40 mg Pharmacy Consult (Vancomycin Per Pharmacy*) 1 note FOLLOW UP .VANC PER PHARMACY [facility] Pharmacy Profile Note (Vancomycin Trough Check) 1 note FOLLOW UP ONCE ONE Stop: 04/11/17 16:31 Rivaroxaban (Xarelto (*)) 20 mg PO DAILY [facility] Tiotropium [place] (Spiriva Cap.Inh*) 1 cap INH DAILY [facility] Physical Exam: General: was more lethargic, but now more awake/alert easily, not diaphoretic, no distress Head: normocephalic, atraumatic HEENT: no pallor, no icterus, moist mucous membranes Neck: soft, supple, no jvd, no stridor CVS: tachycardic, irregular, no murmur Resp: bilateral air entry but dec bilaterally, no rhales, no wheeze, no rhonchi , no acc muscle use Abdomen: soft, nontender, nondistended, bowel sounds present Ext: pulses+, warm, chronic dry skin in LE, mild edema+ Skin: intact, no breakdown, +dryness Neuro: awakens easily, alert, orientedx3, moving all extremities, no gross focal deficit Labs: Laboratory Results - last 24 hr 04/10/17 04/10/17 04/10/17 03:45 04:28 04:28 WBC RBC Hgb Hct MCV MCH MCHC RDW Plt Count MPV Neut % (Auto) Lymph % (Auto) [place] % (Auto) Eos % (Auto) Baso % (Auto) Absolute Neuts (auto) Absolute Lymphs (auto) Absolute Monos (auto) Absolute Eos (auto) Absolute Basos (auto) Absolute Nucleated RBC Nucleated RBC % INR (Anticoag Therapy) 1.47 H APTT 38.7 H Patient Temperature Not Reportable ABG pH 7.26 L ABG pH (Temp Correct) ABG pCO2 54 H ABG pCO2 (Temp Corrct ABG pO2 94 ABG pO2 (Temp Correct ABG HCO3 22.2 ABG O2 Saturation 98.5 H ABG Base Excess -3.4 L Respiration Rate Not Reportable O2 Delivery Device Not Reportable Ventilator Type Not Reportable Vent Mode Not Reportable FiO2 100 Inspiratory Time Not Reportable PEEP Not Reportable Pressure Support Not Reportable Pressure Control Not Reportable EPAP 10 IPAP 16 BiPAP Not Reportable Sodium Potassium Chloride Carbon Dioxide Anion Gap BUN Creatinine Est GFR ( Amer) Est GFR (Non-Af Amer) BUN/Creatinine Ratio Glucose POC Glucose (mg/dL) Hemoglobin A1c Lactic Acid Calcium Total Bilirubin AST ALT Alkaline Phosphatase Troponin I B-Natriuretic Peptide 867 H Total Protein Albumin Globulin Albumin/Globulin Ratio Urine Color Urine Appearance Urine pH Ur Specific Ariel Urine Protein Urine Ketones Urine Blood Urine Nitrate Urine Bilirubin Urine Urobilinogen Ur Leukocyte Esterase Urine Glucose Influenza A (Rapid) Influenza B (Rapid) 04/10/17 04/10/17 04/10/17 04:28 04:28 04:28 WBC 11.1 H RBC 4.25 Hgb 13.0 Hct 40 MCV 93 MCH 31 MCHC 33 RDW 17 H Plt Count 172 MPV 8 Neut % (Auto) 92.9 H Lymph % (Auto) 2.6 L [place] % (Auto) 3.8 Eos % (Auto) 0.1 Baso % (Auto) 0.6 Absolute Neuts (auto) 10.3 H Absolute Lymphs (auto) 0.3 L Absolute Monos (auto) 0.4 Absolute Eos (auto) 0 Absolute Basos (auto) 0.1 Absolute Nucleated RBC 0.01 Nucleated RBC % 0.1 INR (Anticoag Therapy) APTT Patient Temperature ABG pH ABG pH (Temp Correct) ABG pCO2 ABG pCO2 (Temp Corrct ABG pO2 ABG pO2 (Temp Correct ABG HCO3 ABG O2 Saturation ABG Base Excess Respiration Rate O2 Delivery Device Ventilator Type Vent Mode FiO2 Inspiratory Time PEEP Pressure Support Pressure Control EPAP IPAP BiPAP Sodium 137 Potassium 3.9 Chloride 105 Carbon Dioxide 26 Anion Gap 6 BUN 12 Creatinine 1.13 H Est GFR ( Amer) 61.0 Est GFR (Non-Af Amer) 47.5 BUN/Creatinine Ratio 10.6 Glucose 233 H POC Glucose (mg/dL) Hemoglobin A1c Lactic Acid 1.9 Calcium 9.1 Total Bilirubin 1.10 H AST 7 L ALT 4 L Alkaline Phosphatase 73 Troponin I 0.02 B-Natriuretic Peptide Total Protein 6.8 Albumin 3.7 Globulin 3.1 Albumin/Globulin Ratio 1.2 Urine Color Urine Appearance Urine pH Ur Specific Ariel Urine Protein Urine Ketones Urine Blood Urine Nitrate Urine Bilirubin Urine Urobilinogen Ur Leukocyte Esterase Urine Glucose Influenza A (Rapid) Influenza B (Rapid) 04/10/17 04/10/17 04/10/17 04:28 06:24 06:55 WBC RBC Hgb Hct MCV MCH MCHC RDW Plt Count MPV Neut % (Auto) Lymph % (Auto) [place] % (Auto) Eos % (Auto) Baso % (Auto) Absolute Neuts (auto) Absolute Lymphs (auto) Absolute Monos (auto) Absolute Eos (auto) Absolute Basos (auto) Absolute Nucleated RBC Nucleated RBC % INR (Anticoag Therapy) APTT Patient Temperature Not Reportable ABG pH 7.26 L ABG pH (Temp Correct) Not Reportable ABG pCO2 50 H ABG pCO2 (Temp Corrct Not Reportable ABG pO2 82 ABG pO2 (Temp Correct Not Reportable ABG HCO3 21.0 ABG O2 Saturation 97.7 ABG Base Excess -4.9 L Respiration Rate Not Reportable O2 Delivery Device Ventilator Type Not Reportable Vent Mode Not Reportable FiO2 100 Inspiratory Time Not Reportable PEEP Not Reportable Pressure Support Not Reportable Pressure Control Not Reportable EPAP 10 IPAP 20 BiPAP Not Reportable Sodium Potassium Chloride Carbon Dioxide Anion Gap BUN Creatinine Est GFR ( Amer) Est GFR (Non-Af Amer) BUN/Creatinine Ratio Glucose POC Glucose (mg/dL) Hemoglobin A1c 7.1 H Lactic Acid Calcium Total Bilirubin AST ALT Alkaline Phosphatase Troponin I B-Natriuretic Peptide Total Protein Albumin Globulin Albumin/Globulin Ratio Urine Color Yellow Urine Appearance Clear Urine pH 5.0 Ur Specific Ariel 1.017 Urine Protein Negative Urine Ketones Negative Urine Blood Negative Urine Nitrate Negative Urine Bilirubin Negative Urine Urobilinogen Negative Ur Leukocyte Esterase Negative Urine Glucose Negative Influenza A (Rapid) Influenza B (Rapid) 04/10/17 04/10/17 04/10/17 08:00 08:00 08:09 WBC RBC Hgb Hct MCV MCH MCHC RDW Plt Count MPV Neut % (Auto) Lymph % (Auto) [place] % (Auto) Eos % (Auto) Baso % (Auto) Absolute Neuts (auto) Absolute Lymphs (auto) Absolute Monos (auto) Absolute Eos (auto) Absolute Basos (auto) Absolute Nucleated RBC Nucleated RBC % INR (Anticoag Therapy) APTT Patient Temperature ABG pH ABG pH (Temp Correct) ABG pCO2 ABG pCO2 (Temp Corrct ABG pO2 ABG pO2 (Temp Correct ABG HCO3 ABG O2 Saturation ABG Base Excess Respiration Rate O2 Delivery Device Ventilator Type Vent Mode FiO2 Inspiratory Time PEEP Pressure Support Pressure Control EPAP IPAP BiPAP Sodium Potassium Chloride Carbon Dioxide Anion Gap BUN Creatinine Est GFR ( Amer) Est GFR (Non-Af Amer) BUN/Creatinine Ratio Glucose POC Glucose (mg/dL) 240 H Hemoglobin A1c Lactic Acid 2.7 H* Calcium Total Bilirubin AST ALT Alkaline Phosphatase Troponin I 0.04 H* B-Natriuretic Peptide Total Protein Albumin Globulin Albumin/Globulin Ratio Urine Color Urine Appearance Urine pH Ur Specific Ariel Urine Protein Urine Ketones Urine Blood Urine Nitrate Urine Bilirubin Urine Urobilinogen Ur Leukocyte Esterase Urine Glucose Influenza A (Rapid) Influenza B (Rapid) 04/10/17 04/10/17 08:37 12:10 WBC RBC Hgb Hct MCV MCH MCHC RDW Plt Count MPV Neut % (Auto) Lymph % (Auto) [place] % (Auto) Eos % (Auto) Baso % (Auto) Absolute Neuts (auto) Absolute Lymphs (auto) Absolute Monos (auto) Absolute Eos (auto) Absolute Basos (auto) Absolute Nucleated RBC Nucleated RBC % INR (Anticoag Therapy) APTT Patient Temperature ABG pH ABG pH (Temp Correct) ABG pCO2 ABG pCO2 (Temp Corrct ABG pO2 ABG pO2 (Temp Correct ABG HCO3 ABG O2 Saturation ABG Base Excess Respiration Rate O2 Delivery Device Ventilator Type Vent Mode FiO2 Inspiratory Time PEEP Pressure Support Pressure Control EPAP IPAP BiPAP Sodium Potassium Chloride Carbon Dioxide Anion Gap BUN Creatinine Est GFR ( Amer) Est GFR (Non-Af Amer) BUN/Creatinine Ratio Glucose POC Glucose (mg/dL) 250 H Hemoglobin A1c Lactic Acid Calcium Total Bilirubin AST ALT Alkaline Phosphatase Troponin I B-Natriuretic Peptide Total Protein Albumin Globulin Albumin/Globulin Ratio Urine Color Urine Appearance Urine pH Ur Specific Ariel Urine Protein Urine Ketones Urine Blood Urine Nitrate Urine Bilirubin Urine Urobilinogen Ur Leukocyte Esterase Urine Glucose Influenza A (Rapid) Negative Influenza B (Rapid) Negative Imaging: cxr 04/10 pulm congestion+, left sided small effusion new compared to prior cxr; right effusion similar but more opacity, which could be consolidation on RLL. 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 Patient comes into ER by EMS for weakness and SOB. Cough+. Found to be hypercapneic, hypoxia with possible RLL pneumonia and diffuse pulm congestion. -Acute hypoxic and hypercapneic respiratory failure -Pulmonary Congestion -acute decompensated LV diastolic heart failure -Right pleural effusion -possible right lower lobe pneumonia -LAKSHMI -urinary outflow obstruction; s/p jimenez -severe sepsis Plan: Neuro- more awake and alert, likely some delirium from resp distress and hypercapnea. Cont neurochecks for any change in mental status. Asp prec. Fall prec. Delirium prec. CVS- BP stable. HR rapid afib. Restart atenolol and Cardizem. Lasix 20mg iv x1 today at 4pm. IV abx for possible pneumonia. No IVF. Repeat LA today. Cont rivaroxaban for AC for AFib. Resp- on salter and on 16L. hypoxic. Cont diuretics and IV abx. May need hiflow or NIV again. Mental status better and less resp distress noted. Cont solumedrol and bronchodilators. CXR in AM. Sputum culture if able. At risk of intubation due to hypoxia. ABG in AM or if any mental status change again. Re- eval right effusion/consolidation tomorrow if a thoracentesis may be needed. ID- afebrile. Wbc 11. Possible RLL consolidation under the effusion. Re-eval tomorrow, may need CT Chest. Blood/sputum cultures. IV cefepime. Discontinue Levaquin IV. GI- NPO for now, can restart diet if awake/alert. NPO on NIV. PPI for h/o barretts and pt on steroids. Renal- LAKSHIM, Cr 1.1. Obstrucive component also, output of 1-2Liters after jimenez placed. Keep jimenez. May need urology eval if has recurrent obstruction. IV Lasix 20mg iv today. K okay. Repeat LA. Normal bicarb. Heme- hg stable, plt stable. Cont rivaroxaban for AC/AFib. Endo- insulin scale. Musculsk- bedrest for now. Wounds- none Nutrition- npo for now, till mental status improved. DVT prophylaxis: rivaroxaban po GI prophylaxis: ppi iv Central Line: no Arterial Line: no Jimenez Cathetor: yes Disposition: ICU for respiratory failure, pulm congestion/pneumonia Code Status: full code Total Critical Care time is 50 minutes, excluding procedures/teaching Shashi Hardin MD Sulfide Head Operator (Electronically Signed)
[2017-04-10] MEDS: Albuterol 2.5 MG/3 ML NEB.SOL* (0.083%) INH SCH ×2 (14:27→20:14)
[2017-04-10] MEDS: amLODIPine TAB* 5 MG PO SCH (14:56)
[2017-04-10] MEDS ORDERED: Furosemide IV* 10 MG/ML 2 ML VIAL (20 MG) IV SLOW PU ONE (16:00)
[2017-04-10] MEDS: Vancomycin(*) 1,000 MG in NS 0.9% 250 ML* 250 ML IVPB SCH (16:29)
[2017-04-10] MEDS: Atenolol TAB* 50 MG PO SCH (20:22)
[2017-04-11] MEDS: Albuterol 2.5 MG/3 ML NEB.SOL* (0.083%) INH SCH ×4 (01:39→19:25)
[2017-04-11] MEDS: Insulin LISPRO* 1 UNITS UNIT SUBCUT SCH ×6 (04:26→20:41)
[2017-04-11] MEDS: Vancomycin(*) 1,000 MG in NS 0.9% 250 ML* 250 ML IVPB SCH ×2 (04:32→17:16)
[2017-04-11] MEDS: Atenolol TAB* 50 MG PO SCH ×2 (09:18→20:41)
[2017-04-11] MEDS: Pantoprazole IV* 40 MG IV SCH (09:18)
[2017-04-11] MEDS: Rivaroxaban TAB(*) 20 MG TAB PO SCH (09:19)
[2017-04-11] MEDS: amLODIPine TAB* 5 MG PO SCH (09:19)
[2017-04-11] MEDS: Diltiazem CD CAP* 120 MG PO SCH (09:27)
[2017-04-11] MEDS ORDERED: Furosemide IV* 10 MG/ML 2 ML VIAL (20 MG) IV SLOW PU ONE (10:00)
[2017-04-11] MEDS: Mometasone/Formoter 200/5 MDI INH SCH ×2 (10:21→19:26)
[2017-04-11] MEDS: Tiotropium CAP.INH* CAP.INH/18 MCG (USE ORDER SET !) INH SCH (10:22)
[2017-04-11] MEDS: predniSONE TAB* 20 MG PO SCH (11:02)
[2017-04-11] MEDS: Cefepime 1 GM in Dextrose(*) 1 GM/50 ML BAG IV SCH ×2 (11:02)
--- NOTE | 2017-04-11 11:37 | PN ---
Progress Note - Progress Note Date of Service: 04/11/17 Note: CRITICAL CARE MEDICINE Date: 04/11/17 Time: 915 SUBJECTIVE: Patient seen and examined. PHYSICAL EXAM: Vital Signs: Reviewed. Neurologic: awake, communicating HEENT: pupils equal. Sclera anicteric. Trachea midline. Cardiovascular: S1 S2 Respiratory: dec at right base and poor excursion Abdomen: Soft, nt. No r/g/r. Extremities: Warm. LABS: Reviewed. IMAGING: Reviewed. MEDICATIONS: Reviewed. ASSESSMENT: 71 F Acute on chronic hypercarbic respiratory failure Right basilar atelectasis and pleural effusion PLAN: Neurologic: awake, communicating well Cardiovascular: perfusing well. interstial vol up but not large amount, just situated in dep regions. trial lasix again today. Respiratory: needs maria teresa farooq. RLL atelectasis and effusion. Try metaneb. Try IS. oob. coughing. need to see if she can re-recruit that lung base vs if needing eval for post obstructive. nebs prn. on 15L but o2 not her ailment, needs lung recruitment for ventilation. Gastrointestinal: po Renal/Metabolic: improved Infectious Disease: on vanco/cefepime, although not acting infective. continue today but this is unlikely an abx fix. Hematology: stable. hsq Endocrine: prednisone taper. Musculoskeletal: oob. thuy jimenez Psych/Social: pt expressed understanding Supportive and preventative care as ordered. Disposition: ICU today for maria teresa farooq. Code Status: Full Critical Care Time: 25min Esme Gomes DO
[2017-04-11] MEDS ORDERED: Acetaminophen TAB* 325 MG PO PRN (12:31)
[2017-04-11] MEDS ORDERED: methylPREDNISolone SOD 40 MG* 1 ML VIAL IV SCH (14:00)
[2017-04-11] MEDS ORDERED: Vancomycin Trough Check NOTE FOLLOW UP ONE (16:30)
[2017-04-12] MEDS: Insulin LISPRO* 1 UNITS UNIT SUBCUT SCH ×6 (00:56→21:36)
[2017-04-12] MEDS: Cefepime 1 GM in Dextrose(*) 1 GM/50 ML BAG IV SCH (00:57)
[2017-04-12] MEDS: Albuterol 2.5 MG/3 ML NEB.SOL* (0.083%) INH SCH ×4 (01:36→19:30)
[2017-04-12] MEDS: Vancomycin(*) 1,000 MG in NS 0.9% 250 ML* 250 ML IVPB SCH (04:34)
[2017-04-12 06:39] LABS: ABS Basophils 0 10^3/ul (0-0.2); ABS Eosinophils 0 10^3/ul (0-0.6); ABS Lymphocytes 0.3 10^3/ul (1.0-4.8); ABS Monocytes 0.3 10^3/ul (0-0.8); ABS Neutrophils 8.4 10^3/ul (1.5-7.7); ABS Nucleated RBC 0.02 10^3/ul; Eosinophil % 0.1 % (0-6); Hematocrit 46 % (35-47); Hemoglobin 15.2 g/dl (12.0-16.0); Lymphocyte % 2.9 % (25-47); Mean Corpuscular HGB Conc 33 g/dl (31-36); Mean Corpuscular Hemoglobin 31 pg (27-31); Mean Corpuscular Volume 94 fL (80-97); Mean Platelet Volume 8 um3 (7.4-10.4); Nucleated Red Blood Cells % 0.2; Platelet Count 94 10^3/ul (150-450); Red Blood Count 4.97 10^6/ul (4.0-5.4); Red Cell Distribution Width 18 % (10.5-15); White Blood Count 8.9 10^3/ul (3.5-10.8)
[2017-04-12 06:41] LABS: EGFR Non-African American 46.5 (>60)
[2017-04-12] MEDS: Tiotropium CAP.INH* CAP.INH/18 MCG (USE ORDER SET !) INH SCH (07:23)
[2017-04-12] MEDS: Mometasone/Formoter 200/5 MDI INH SCH ×2 (07:23→19:31)
[2017-04-12] MEDS: Diltiazem CD CAP* 120 MG PO SCH (08:05)
[2017-04-12] MEDS: Atenolol TAB* 50 MG PO SCH ×2 (08:05→21:36)
[2017-04-12] MEDS: Rivaroxaban TAB(*) 20 MG TAB PO SCH (08:05)
[2017-04-12] MEDS: amLODIPine TAB* 5 MG PO SCH (08:05)
[2017-04-12] MEDS: predniSONE TAB* 20 MG PO SCH (08:06)
[2017-04-12] MEDS ORDERED: Magnesium Sulfate 2 GM IV* 2 GM/50 ML BAG IVPB ONE (10:05)
--- NOTE | 2017-04-12 10:16 | PN ---
Progress Note - Progress Note Date of Service: 04/12/17 Note: CRITICAL CARE MEDICINE Date: 04/12/17 Time: 905 SUBJECTIVE: Patient seen and examined. PHYSICAL EXAM: Vital Signs: Reviewed. Neurologic: awake, communicating HEENT: pupils equal. Sclera anicteric. Trachea midline. Cardiovascular: S1 S2 Respiratory: dec at right base still but excursion better Abdomen: Soft, nt. Extremities: Warm. jimenez. LABS: Reviewed. IMAGING: Reviewed. MEDICATIONS: Reviewed. ASSESSMENT: 71 F Acute on chronic hypercarbic respiratory failure Right basilar atelectasis and pleural effusion Sepsis ruled out PLAN: Neurologic: awake, communicating well Cardiovascular: perfusing well. vol ok. Respiratory: continue pulm toliet for RLL atelectasis and effusion. copd adjunctives. Gastrointestinal: po Renal/Metabolic: improved Infectious Disease: on vanco/cefepime but no infective dynamic and can dc abx. Hematology: stable. hsq Endocrine: prednisone taper. Musculoskeletal: oob. jimenez f/u Psych/Social: pt expressed understanding Supportive and preventative care as ordered. Disposition: floor Code Status: Full Critical Care Time: 25min FRj Gomes DO
[2017-04-12] MEDS ORDERED: Vancomycin(*) 750 MG in NS 0.9% 250 ML* 250 ML IVPB SCH (18:00)
[2017-04-13] MEDS: Albuterol 2.5 MG/3 ML NEB.SOL* (0.083%) INH SCH ×4 (02:04→19:14)
[2017-04-13 05:28] LABS: ABS Basophils 0.1 10^3/ul (0-0.2); ABS Eosinophils 0 10^3/ul (0-0.6); ABS Lymphocytes 0.4 10^3/ul (1.0-4.8); ABS Monocytes 0.6 10^3/ul (0-0.8); ABS Nucleated RBC 0 10^3/ul; Eosinophil % 0.3 % (0-6); Hematocrit 34 % (35-47); Hemoglobin 11.5 g/dl (12.0-16.0); Lymphocyte % 4.4 % (25-47); Mean Corpuscular HGB Conc 33 g/dl (31-36); Mean Corpuscular Hemoglobin 31 pg (27-31); Mean Corpuscular Volume 91 fL (80-97); Mean Platelet Volume 8 um3 (7.4-10.4); Nucleated Red Blood Cells % 0; Platelet Count 141 10^3/ul (150-450); Red Blood Count 3.77 10^6/ul (4.0-5.4); Red Cell Distribution Width 18 % (10.5-15); White Blood Count 10.2 10^3/ul (3.5-10.8)
[2017-04-13 05:53] LABS: EGFR Non-African American 55.3 (>60)
[2017-04-13] MEDS: Tiotropium CAP.INH* CAP.INH/18 MCG (USE ORDER SET !) INH SCH (07:33)
[2017-04-13] MEDS: Mometasone/Formoter 200/5 MDI INH SCH ×2 (07:35→19:14)
[2017-04-13] MEDS: Insulin LISPRO* 1 UNITS UNIT SUBCUT SCH ×4 (08:16→21:39)
[2017-04-13] MEDS: Atenolol TAB* 50 MG PO SCH ×2 (08:18→21:38)
[2017-04-13] MEDS: Rivaroxaban TAB(*) 20 MG TAB PO SCH (08:18)
[2017-04-13] MEDS: amLODIPine TAB* 5 MG PO SCH (08:18)
[2017-04-13] MEDS: Diltiazem CD CAP* 120 MG PO SCH (08:19)
[2017-04-13] MEDS: predniSONE TAB* 20 MG PO SCH (08:20)
--- NOTE | 2017-04-13 13:25 | PN ---
Subjective Date of Service: 04/13/17 Interval History: pt feels "fine", still on 10 L 02. C/o chronic leg edema, no better when elevated Objective Active Medications: Acetaminophen (Tylenol Tab*) 650 mg PO Q6H PRN PRN Reason: PAIN/FEVER Last Admin: 04/11/17 13:21 Dose: 650 mg Albuterol (Ventolin 2.5 Mg/3 Ml Neb.Cherie*) 2.5 mg INH Q2H PRN PRN Reason: SOB/WHEEZING Albuterol (Ventolin 2.5 Mg/3 Ml Neb.Cherie*) 2.5 mg INH [id number] AWAKE [facility] Last Admin: 04/13/17 07:29 Dose: 2.5 mg Amlodipine Besylate (Norvasc Tab*) 2.5 mg PO DAILY [facility] Last Admin: 04/13/17 08:18 Dose: 2.5 mg Atenolol (Tenormin Tab*) 50 mg PO BID [facility] Last Admin: 04/13/17 08:18 Dose: 50 mg Citalopram Hydrobromide (Celexa Tab*) 40 mg PO DAILY [facility] Diltiazem HCl (Cardizem Cd Cap*) 120 mg PO QAM [facility] Last Admin: 04/13/17 08:19 Dose: 120 mg Furosemide (Lasix Tab*) 20 mg PO DAILY [facility] Insulin Human Lispro (Humalog*) 0 units SUBCUT ACHS [facility] PRN Reason: Protocol Last Admin: 04/13/17 12:22 Dose: 3 units Mometasone Furoate/Formoterol Fumar (Dulera 200/5 Mdi*) 2 puff INH BID [facility] Last Admin: 04/13/17 07:35 Dose: 2 puff Morphine Sulfate (Morphine Inj (Syringe)*) 2 mg IV Q4H PRN PRN Reason: air hunger Ondansetron HCl (Zofran Inj*) 4 mg IV Q6H PRN PRN Reason: NAUSEA Last Admin: 04/10/17 10:10 Dose: 4 mg Prednisone (Deltasone Tab*) 40 mg PO DAILY [facility] Last Admin: 04/13/17 08:20 Dose: 40 mg Rivaroxaban (Xarelto (*)) 20 mg PO DAILY [facility] Last Admin: 04/13/17 08:18 Dose: 20 mg Tiotropium [place] (Spiriva Cap.Inh*) 1 cap INH DAILY [facility] Last Admin: 04/13/17 07:33 Dose: 1 cap Vital Signs - 8 hr 04/13/17 04/13/17 04/13/17 07:26 07:29 07:30 Temperature 97.6 F Pulse Rate 73 66 Respiratory 16 Rate Blood Pressure 136/72 (mmHg) O2 Sat by Pulse 96 92 Oximetry 04/13/17 04/13/17 08:00 11:54 Temperature Pulse Rate Respiratory 16 Rate Blood Pressure (mmHg) O2 Sat by Pulse 93 Oximetry Oxygen Devices in Use Now: Nasal Cannula - at 10 l Appearance: 71 yo f in nAD, aAOx3 Eyes: No Scleral Icterus, PERRLA Ears/Nose/Mouth/Throat: NL Teeth, Lips, Gums, Mucous Membranes Moist Neck: NL Appearance and Movements; NL JVP, Trachea Midline Respiratory: Symmetrical Chest Expansion and Respiratory Effort, - - distant breath sounds b/l with coarse wheezes at bases Cardiovascular: - - irregular Abdominal: NL Sounds; No Tenderness; No Distention, No Hepatosplenomegaly Lymphatic: No Cervical Adenopathy Extremities: No Clubbing, Cyanosis, - - trace b/l pedal edema Skin: No Nodules or Sclerosis, - - b/l vesous stasis skin changes Neurological: Alert and Oriented x 3, NL Muscle Strength and Tone Result Diagrams: 04/13/17 05:18 04/13/17 05:18 Additional Lab and Data: Lab Results 04/10/17 04/10/17 04/10/17 Range/Units 03:45 04:28 04:28 WBC (3.5-10.8) 10^3/ul RBC (4.0-5.4) 10^6/ul Hgb (12.0-16.0) g/dl Hct (35-47) % MCV (80-97) fL MCH (27-31) pg MCHC (31-36) g/dl RDW (10.5-15) % Plt Count (150-450) 10^3/ul MPV (7.4-10.4) um3 Neut % (Auto) (38-83) % Lymph % (Auto) (25-47) % O'Brien % (Auto) (1-9) % Eos % (Auto) (0-6) % Baso % (Auto) (0-2) % Absolute Neuts (auto) (1.5-7.7) 10^3/ul Absolute Lymphs (auto) (1.0-4.8) 10^3/ul Absolute Monos (auto) (0-0.8) 10^3/ul Absolute Eos (auto) (0-0.6) 10^3/ul Absolute Basos (auto) (0-0.2) 10^3/ul Absolute Nucleated RBC 10^3/ul Nucleated RBC % INR (Anticoag Therapy) 1.47 H (0.77-1.02) APTT 38.7 H (26.0-36.3) seconds Patient Temperature Not Reportable ABG pH 7.26 L (7.35-7.45) ABG pCO2 54 H (35-45) mmHg ABG pO2 94 (80-100) mmHg ABG HCO3 22.2 (19-31) mmol/L ABG O2 Saturation 98.5 H (95-98) % ABG Base Excess -3.4 L (-2.0-2.0) Respiration Rate Not Reportable O2 Delivery Device Not Reportable Ventilator Type Not Reportable Vent Mode Not Reportable FiO2 100 Inspiratory Time Not Reportable PEEP Not Reportable Pressure Support Not Reportable Pressure Control Not Reportable EPAP 10 IPAP 16 BiPAP Not Reportable Sodium (133-145) mmol/L Potassium (3.5-5.0) mmol/L Chloride (101-111) mmol/L Carbon Dioxide (22-32) mmol/L Anion Gap (2-11) mmol/L BUN (6-24) mg/dL Creatinine (0.51-0.95) mg/dL Est GFR ( Amer) (>60) Est GFR (Non-Af Amer) (>60) BUN/Creatinine Ratio (8-20) Glucose (70-100) mg/dL Lactic Acid (0.5-2.0) mmol/L Calcium (8.6-10.3) mg/dL Total Bilirubin (0.2-1.0) mg/dL AST (13-39) U/L ALT (7-52) U/L Alkaline Phosphatase (34-104) U/L Troponin I (<0.04) ng/mL B-Natriuretic Peptide 867 H ( - 100) pg/mL Total Protein (6.4-8.9) g/dL Albumin (3.2-5.2) g/dL Globulin (2-4) g/dL Albumin/Globulin Ratio (1-3) 04/10/17 04/10/17 04/10/17 Range/Units 04:28 04:28 04:28 WBC 11.1 H (3.5-10.8) 10^3/ul RBC 4.25 (4.0-5.4) 10^6/ul Hgb 13.0 (12.0-16.0) g/dl Hct 40 (35-47) % MCV 93 (80-97) fL MCH 31 (27-31) pg MCHC 33 (31-36) g/dl RDW 17 H (10.5-15) % Plt Count 172 (150-450) 10^3/ul MPV 8 (7.4-10.4) um3 Neut % (Auto) 92.9 H (38-83) % Lymph % (Auto) 2.6 L (25-47) % O'Brien % (Auto) 3.8 (1-9) % Eos % (Auto) 0.1 (0-6) % Baso % (Auto) 0.6 (0-2) % Absolute Neuts (auto) 10.3 H (1.5-7.7) 10^3/ul Absolute Lymphs (auto) 0.3 L (1.0-4.8) 10^3/ul Absolute Monos (auto) 0.4 (0-0.8) 10^3/ul Absolute Eos (auto) 0 (0-0.6) 10^3/ul Absolute Basos (auto) 0.1 (0-0.2) 10^3/ul Absolute Nucleated RBC 0.01 10^3/ul Nucleated RBC % 0.1 INR (Anticoag Therapy) (0.77-1.02) APTT (26.0-36.3) seconds Patient Temperature ABG pH (7.35-7.45) ABG pCO2 (35-45) mmHg ABG pO2 (80-100) mmHg ABG HCO3 (19-31) mmol/L ABG O2 Saturation (95-98) % ABG Base Excess (-2.0-2.0) Respiration Rate O2 Delivery Device Ventilator Type Vent Mode FiO2 Inspiratory Time PEEP Pressure Support Pressure Control EPAP IPAP BiPAP Sodium 137 (133-145) mmol/L Potassium 3.9 (3.5-5.0) mmol/L Chloride 105 (101-111) mmol/L Carbon Dioxide 26 (22-32) mmol/L Anion Gap 6 (2-11) mmol/L BUN 12 (6-24) mg/dL Creatinine 1.13 H (0.51-0.95) mg/dL Est GFR ( Amer) 61.0 (>60) Est GFR (Non-Af Amer) 47.5 (>60) BUN/Creatinine Ratio 10.6 (8-20) Glucose 233 H (70-100) mg/dL Lactic Acid 1.9 (0.5-2.0) mmol/L Calcium 9.1 (8.6-10.3) mg/dL Total Bilirubin 1.10 H (0.2-1.0) mg/dL AST 7 L (13-39) U/L ALT 4 L (7-52) U/L Alkaline Phosphatase 73 (34-104) U/L Troponin I 0.02 (<0.04) ng/mL B-Natriuretic Peptide ( - 100) pg/mL Total Protein 6.8 (6.4-8.9) g/dL Albumin 3.7 (3.2-5.2) g/dL Globulin 3.1 (2-4) g/dL Albumin/Globulin Ratio 1.2 (1-3) Microbiology and Other Data: Microbiology 04/10/17 07:46 Nasal Screen MRSA (PCR)([facility]) - Final Nasal Mrsa Positive 04/10/17 07:55 Streptococcus pneumoniae Ag Screen - Final Urine Negative S. pneumo Antigen 04/10/17 08:00 Influenza Types A,B Antigen (MILEY) - Final Nasal Specimen received for Influenza A/B Molecular testing Assess/Plan/Problems-Billing Assessment: 71 yo f with h/o seizure disorder(not on meds, COPD with chronic hypoxemic respiratory failure (on 2 l 02 and CPAP at night), A.fib on Xarelto, smoking, HTN, severe pulm HTN, [employer] NURSE shunt, Escamilla's presents with hypoxemic respiratory failure and COPD exacerbation - Patient Problems (1) Acute and chronic respiratory failure, unspecified whether with hypoxia or hypercapnia Comment: hypoxemic still on 10 L 02 cont incentive spirometry cont Prednisone for COPD exacerbation (2) Afib Comment: - Rate controlled. - Contine home atenolol, diltiazem. - Continue xarelto. 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 (4) Diabetes Comment: cont ISS, metformin on hold (5) DVT prophylaxis Comment: - Xarelto Status and Disposition: inpatient
[2017-04-13] MEDS: Omeprazole CAP* 20 MG PO SCH (21:38)
[2017-04-14] MEDS: Albuterol 2.5 MG/3 ML NEB.SOL* (0.083%) INH SCH ×4 (01:04→19:05)
[2017-04-14] MEDS ORDERED: Vancomycin Trough Check NOTE FOLLOW UP ONE (05:30)
[2017-04-14 05:48] LABS: EGFR Non-African American 60.2 (>60)
[2017-04-14] MEDS: Tiotropium CAP.INH* CAP.INH/18 MCG (USE ORDER SET !) INH SCH (07:15)
[2017-04-14] MEDS: Mometasone/Formoter 200/5 MDI INH SCH ×2 (07:15→19:07)
[2017-04-14] MEDS ORDERED: Furosemide TAB* 20 MG PO SCH (09:00)
[2017-04-14] MEDS: predniSONE TAB* 20 MG PO SCH (09:18)
[2017-04-14] MEDS: Citalopram TAB* 40 MG PO SCH (09:18)
[2017-04-14] MEDS: Diltiazem CD CAP* 120 MG PO SCH (09:19)
[2017-04-14] MEDS: Rivaroxaban TAB(*) 20 MG TAB PO SCH (09:19)
[2017-04-14] MEDS: amLODIPine TAB* 5 MG PO SCH (09:19)
[2017-04-14] MEDS: Omeprazole CAP* 20 MG PO SCH ×2 (09:19→20:49)
[2017-04-14] MEDS: Atenolol TAB* 50 MG PO SCH ×2 (09:19→20:49)
[2017-04-14] MEDS: Insulin LISPRO* 1 UNITS UNIT SUBCUT SCH ×4 (09:24→20:49)
[2017-04-14] MEDS ORDERED: Magnesium Hydroxide LIQ* 30 ML UDC PO ONE (13:59)
[2017-04-14] MEDS ORDERED: Furosemide IV* 10 MG/ML 2 ML VIAL (20 MG) IV ONE (13:59)
--- NOTE | 2017-04-14 14:05 | PN ---
Subjective Date of Service: 04/14/17 Interval History: Pt still on n8l [place]. Very SOB when ambulating Objective Active Medications: Acetaminophen (Tylenol Tab*) 650 mg PO Q6H PRN PRN Reason: PAIN/FEVER Last Admin: 04/11/17 13:21 Dose: 650 mg Albuterol (Ventolin 2.5 Mg/3 Ml Neb.Cherie*) 2.5 mg INH Q2H PRN PRN Reason: SOB/WHEEZING Albuterol (Ventolin 2.5 Mg/3 Ml Neb.Cherie*) 2.5 mg INH [id number] AWAKE [facility] Last Admin: 04/14/17 13:21 Dose: 2.5 mg Amlodipine Besylate (Norvasc Tab*) 2.5 mg PO DAILY [facility] Last Admin: 04/14/17 09:19 Dose: 2.5 mg Atenolol (Tenormin Tab*) 50 mg PO BID [facility] Last Admin: 04/14/17 09:19 Dose: 50 mg Citalopram Hydrobromide (Celexa Tab*) 40 mg PO DAILY [facility] Last Admin: 04/14/17 09:18 Dose: 40 mg Diltiazem HCl (Cardizem Cd Cap*) 120 mg PO QAM [facility] Last Admin: 04/14/17 09:19 Dose: 120 mg Furosemide (Lasix Tab*) 20 mg PO DAILY [facility] Last Admin: 04/14/17 09:18 Dose: 20 mg Furosemide (Lasix Iv*) 20 mg IV ONCE ONE Stop: 04/14/17 14:00 Insulin Human Lispro (Humalog*) 0 units SUBCUT ACHS [facility] PRN Reason: Protocol Last Admin: 04/14/17 12:29 Dose: 3 units Magnesium Hydroxide (Milk Of Magnesia Liq*) 30 ml PO ONCE ONE Stop: 04/14/17 14:00 Mometasone Furoate/Formoterol Fumar (Dulera 200/5 Mdi*) 2 puff INH BID [facility] Last Admin: 04/14/17 07:15 Dose: 2 puff Morphine Sulfate (Morphine Inj (Syringe)*) 2 mg IV Q4H PRN PRN Reason: air hunger Omeprazole (Prilosec Cap*) 20 mg PO BID [facility] Last Admin: 04/14/17 09:19 Dose: 20 mg Ondansetron HCl (Zofran Inj*) 4 mg IV Q6H PRN PRN Reason: NAUSEA Last Admin: 04/10/17 10:10 Dose: 4 mg Prednisone (Deltasone Tab*) 40 mg PO DAILY [facility] Last Admin: 04/14/17 09:18 Dose: 40 mg Rivaroxaban (Xarelto (*)) 20 mg PO DAILY [facility] Last Admin: 04/14/17 09:19 Dose: 20 mg Tiotropium [place] (Spiriva Cap.Inh*) 1 cap INH DAILY [facility] Last Admin: 04/14/17 07:15 Dose: 1 cap Vital Signs - 8 hr 04/14/17 04/14/17 04/14/17 07:18 07:21 07:57 Temperature 97.3 F Pulse Rate 72 71 Respiratory 18 20 Rate Blood Pressure 123/60 (mmHg) O2 Sat by Pulse 99 93 95 Oximetry 04/14/17 04/14/17 08:00 13:22 Temperature Pulse Rate 94 Respiratory 20 18 Rate Blood Pressure (mmHg) O2 Sat by Pulse 75 Oximetry Oxygen Devices in Use Now: Nasal Cannula - at 8l Appearance: 71 yo f in nAD, aAOx3 Eyes: No Scleral Icterus, PERRLA Ears/Nose/Mouth/Throat: NL Teeth, Lips, Gums, Mucous Membranes Moist Neck: NL Appearance and Movements; NL JVP, Trachea Midline Respiratory: Symmetrical Chest Expansion and Respiratory Effort, Clear to Auscultation Cardiovascular: NL Sounds; No Murmurs; No JVD, - - irregular Abdominal: NL Sounds; No Tenderness; No Distention Lymphatic: No Cervical Adenopathy Extremities: No Clubbing, Cyanosis, - - +1 b/l piting edema Skin: No Rash or Ulcers, No Nodules or Sclerosis Neurological: Alert and Oriented x 3, NL Muscle Strength and Tone Result Diagrams: 04/13/17 05:18 04/14/17 05:10 Additional Lab and Data: Lab Results 04/10/17 04/10/17 04/10/17 Range/Units 03:45 04:28 04:28 WBC (3.5-10.8) 10^3/ul RBC (4.0-5.4) 10^6/ul Hgb (12.0-16.0) g/dl Hct (35-47) % MCV (80-97) fL MCH (27-31) pg MCHC (31-36) g/dl RDW (10.5-15) % Plt Count (150-450) 10^3/ul MPV (7.4-10.4) um3 Neut % (Auto) (38-83) % Lymph % (Auto) (25-47) % [place]clain % (Auto) (1-9) % Eos % (Auto) (0-6) % Baso % (Auto) (0-2) % Absolute Neuts (auto) (1.5-7.7) 10^3/ul Absolute Lymphs (auto) (1.0-4.8) 10^3/ul Absolute Monos (auto) (0-0.8) 10^3/ul Absolute Eos (auto) (0-0.6) 10^3/ul Absolute Basos (auto) (0-0.2) 10^3/ul Absolute Nucleated RBC 10^3/ul Nucleated RBC % INR (Anticoag Therapy) 1.47 H (0.77-1.02) APTT 38.7 H (26.0-36.3) seconds Patient Temperature Not Reportable ABG pH 7.26 L (7.35-7.45) ABG pCO2 54 H (35-45) mmHg ABG pO2 94 (80-100) mmHg ABG HCO3 22.2 (19-31) mmol/L ABG O2 Saturation 98.5 H (95-98) % ABG Base Excess -3.4 L (-2.0-2.0) Respiration Rate Not Reportable O2 Delivery Device Not Reportable Ventilator Type Not Reportable Vent Mode Not Reportable FiO2 100 Inspiratory Time Not Reportable PEEP Not Reportable Pressure Support Not Reportable Pressure Control Not Reportable EPAP 10 IPAP 16 BiPAP Not Reportable Sodium (133-145) mmol/L Potassium (3.5-5.0) mmol/L Chloride (101-111) mmol/L Carbon Dioxide (22-32) mmol/L Anion Gap (2-11) mmol/L BUN (6-24) mg/dL Creatinine (0.51-0.95) mg/dL Est GFR ( Amer) (>60) Est GFR (Non-Af Amer) (>60) BUN/Creatinine Ratio (8-20) Glucose (70-100) mg/dL Lactic Acid (0.5-2.0) mmol/L Calcium (8.6-10.3) mg/dL Total Bilirubin (0.2-1.0) mg/dL AST (13-39) U/L ALT (7-52) U/L Alkaline Phosphatase (34-104) U/L Troponin I (<0.04) ng/mL B-Natriuretic Peptide 867 H ( - 100) pg/mL Total Protein (6.4-8.9) g/dL Albumin (3.2-5.2) g/dL Globulin (2-4) g/dL Albumin/Globulin Ratio (1-3) 04/10/17 04/10/17 04/10/17 Range/Units 04:28 04:28 04:28 WBC 11.1 H (3.5-10.8) 10^3/ul RBC 4.25 (4.0-5.4) 10^6/ul Hgb 13.0 (12.0-16.0) g/dl Hct 40 (35-47) % MCV 93 (80-97) fL MCH 31 (27-31) pg MCHC 33 (31-36) g/dl RDW 17 H (10.5-15) % Plt Count 172 (150-450) 10^3/ul MPV 8 (7.4-10.4) um3 Neut % (Auto) 92.9 H (38-83) % Lymph % (Auto) 2.6 L (25-47) % Mcclain % (Auto) 3.8 (1-9) % Eos % (Auto) 0.1 (0-6) % Baso % (Auto) 0.6 (0-2) % Absolute Neuts (auto) 10.3 H (1.5-7.7) 10^3/ul Absolute Lymphs (auto) 0.3 L (1.0-4.8) 10^3/ul Absolute Monos (auto) 0.4 (0-0.8) 10^3/ul Absolute Eos (auto) 0 (0-0.6) 10^3/ul Absolute Basos (auto) 0.1 (0-0.2) 10^3/ul Absolute Nucleated RBC 0.01 10^3/ul Nucleated RBC % 0.1 INR (Anticoag Therapy) (0.77-1.02) APTT (26.0-36.3) seconds Patient Temperature ABG pH (7.35-7.45) ABG pCO2 (35-45) mmHg ABG pO2 (80-100) mmHg ABG HCO3 (19-31) mmol/L ABG O2 Saturation (95-98) % ABG Base Excess (-2.0-2.0) Respiration Rate O2 Delivery Device Ventilator Type Vent Mode FiO2 Inspiratory Time PEEP Pressure Support Pressure Control EPAP IPAP BiPAP Sodium 137 (133-145) mmol/L Potassium 3.9 (3.5-5.0) mmol/L Chloride 105 (101-111) mmol/L Carbon Dioxide 26 (22-32) mmol/L Anion Gap 6 (2-11) mmol/L BUN 12 (6-24) mg/dL Creatinine 1.13 H (0.51-0.95) mg/dL Est GFR ( Amer) 61.0 (>60) Est GFR (Non-Af Amer) 47.5 (>60) BUN/Creatinine Ratio 10.6 (8-20) Glucose 233 H (70-100) mg/dL Lactic Acid 1.9 (0.5-2.0) mmol/L Calcium 9.1 (8.6-10.3) mg/dL Total Bilirubin 1.10 H (0.2-1.0) mg/dL AST 7 L (13-39) U/L ALT 4 L (7-52) U/L Alkaline Phosphatase 73 (34-104) U/L Troponin I 0.02 (<0.04) ng/mL B-Natriuretic Peptide ( - 100) pg/mL Total Protein 6.8 (6.4-8.9) g/dL Albumin 3.7 (3.2-5.2) g/dL Globulin 3.1 (2-4) g/dL Albumin/Globulin Ratio 1.2 (1-3) Microbiology and Other Data: Microbiology 04/10/17 07:46 Nasal Screen MRSA (PCR)([facility]) - Final Nasal Mrsa Positive 04/10/17 07:55 Streptococcus pneumoniae Ag Screen - Final Urine Negative S. pneumo Antigen 04/10/17 08:00 Influenza Types A,B Antigen ([facility]) - Final Nasal Specimen received for Influenza A/B Molecular testing Assess/Plan/Problems-Billing Assessment: 71 yo f with h/o seizure disorder(not on meds, COPD with chronic hypoxemic respiratory failure (on 2 l 02 and CPAP at night), A.fib on Xarelto, smoking, HTN, severe pulm HTN, [employer] shunt, Escamilla's presents with hypoxemic respiratory failure and COPD exacerbation - Patient Problems (1) Acute and chronic respiratory failure, unspecified whether with hypoxia or hypercapnia Comment: hypoxemic still on 8 L 02 cont incentive spirometry cont Prednisone for COPD exacerbation will try diuresing with Lasix IV today (2) Afib Comment: - Rate controlled. - Contine home atenolol, diltiazem. - Continue xarelto. 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 (4) Diabetes Comment: cont ISS, metformin on hold (5) DVT prophylaxis Comment: - Xarelto (6) Urinary retention Comment: may be due to constipation will start bowel regimen and cont jimenez x one more day Status and Disposition: inpatient
[2017-04-14] MEDS: Senna TAB PO PRN (15:38)
[2017-04-14] MEDS ORDERED: Furosemide TAB* 40 MG PO ONE (15:50)
[2017-04-14] MEDS: Docusate CAP* 100 MG PO SCH (20:49)
[2017-04-15] MEDS: Albuterol 2.5 MG/3 ML NEB.SOL* (0.083%) INH SCH ×2 (00:57→07:40)
[2017-04-15] MEDS: Mometasone/Formoter 200/5 MDI INH SCH ×2 (07:43→19:57)
[2017-04-15] MEDS: Tiotropium CAP.INH* CAP.INH/18 MCG (USE ORDER SET !) INH SCH (07:44)
[2017-04-15] MEDS: predniSONE TAB* 20 MG PO SCH (09:17)
[2017-04-15] MEDS: Rivaroxaban TAB(*) 20 MG TAB PO SCH (09:17)
[2017-04-15] MEDS: Senna TAB PO PRN (09:17)
[2017-04-15] MEDS: Furosemide TAB* 20 MG PO SCH (09:17)
[2017-04-15] MEDS: Diltiazem CD CAP* 120 MG PO SCH (09:18)
[2017-04-15] MEDS: Omeprazole CAP* 20 MG PO SCH ×2 (09:18→21:19)
[2017-04-15] MEDS: amLODIPine TAB* 5 MG PO SCH (09:19)
[2017-04-15] MEDS: Docusate CAP* 100 MG PO SCH ×2 (09:22→21:19)
[2017-04-15] MEDS: Atenolol TAB* 50 MG PO SCH ×2 (09:22→21:19)
[2017-04-15] MEDS: Citalopram TAB* 40 MG PO SCH (09:22)
[2017-04-15] MEDS: Insulin LISPRO* 1 UNITS UNIT SUBCUT SCH ×4 (09:23→21:20)
--- NOTE | 2017-04-15 13:19 | PN ---
Subjective Date of Service: 04/15/17 Interval History: Pt feels better. down to 2 l 02 at rest , but needed 10 L 02 when ambulating. Objective Active Medications: Acetaminophen (Tylenol Tab*) 650 mg PO Q6H PRN PRN Reason: PAIN/FEVER Last Admin: 04/11/17 13:21 Dose: 650 mg Albuterol (Ventolin 2.5 Mg/3 Ml Neb.Cherie*) 2.5 mg INH Q2H PRN PRN Reason: SOB/WHEEZING Amlodipine Besylate (Norvasc Tab*) 2.5 mg PO DAILY [facility] Last Admin: 04/15/17 09:19 Dose: 2.5 mg Atenolol (Tenormin Tab*) 50 mg PO BID [facility] Last Admin: 04/15/17 09:22 Dose: 50 mg Citalopram Hydrobromide (Celexa Tab*) 40 mg PO DAILY [facility] Last Admin: 04/15/17 09:22 Dose: 40 mg Diltiazem HCl (Cardizem Cd Cap*) 120 mg PO QAM [facility] Last Admin: 04/15/17 09:18 Dose: 120 mg Docusate Sodium (Colace Cap*) 100 mg PO BID [facility] Last Admin: 04/15/17 09:22 Dose: 100 mg Furosemide (Lasix Tab*) 40 mg PO DAILY [facility] Last Admin: 04/15/17 09:17 Dose: 40 mg Insulin Human Lispro (Humalog*) 0 units SUBCUT ACHS [facility] PRN Reason: Protocol Last Admin: 04/15/17 12:53 Dose: 3 units Mometasone Furoate/Formoterol Fumar (Dulera 200/5 Mdi*) 2 puff INH BID [facility] Last Admin: 04/15/17 07:43 Dose: 2 puff Morphine Sulfate (Morphine Inj (Syringe)*) 2 mg IV Q4H PRN PRN Reason: air hunger Omeprazole (Prilosec Cap*) 20 mg PO BID [facility] Last Admin: 04/15/17 09:18 Dose: 20 mg Ondansetron HCl (Zofran Inj*) 4 mg IV Q6H PRN PRN Reason: NAUSEA Last Admin: 04/10/17 10:10 Dose: 4 mg Prednisone (Deltasone Tab*) 40 mg PO DAILY [facility] Last Admin: 04/15/17 09:17 Dose: 40 mg Rivaroxaban (Xarelto (*)) 20 mg PO DAILY [facility] Last Admin: 04/15/17 09:17 Dose: 20 mg Senna (Senokot Tab*) 2 tab PO BEDTIME PRN PRN Reason: CONSTIPATION Last Admin: 04/15/17 09:17 Dose: 2 tab Tiotropium [place] (Spiriva Cap.Inh*) 1 cap INH DAILY [facility] Last Admin: 04/15/17 07:44 Dose: 1 cap Vital Signs - 8 hr 04/15/17 04/15/17 04/15/17 07:21 07:46 07:48 Temperature 97.4 F Pulse Rate 68 76 75 Respiratory 16 16 18 Rate Blood Pressure 134/73 (mmHg) O2 Sat by Pulse 97 98 98 Oximetry 04/15/17 04/15/17 08:00 11:59 Temperature 97.5 F Pulse Rate 64 Respiratory 20 16 Rate Blood Pressure 120/66 (mmHg) O2 Sat by Pulse 97 93 Oximetry Oxygen Devices in Use Now: Nasal Cannula - at 2L, High Flow Nasal Cannula Appearance: 71 yo GF in nAD, aAOx3 Eyes: No Scleral Icterus, PERRLA Ears/Nose/Mouth/Throat: NL Teeth, Lips, Gums, Mucous Membranes Moist Neck: NL Appearance and Movements; NL JVP, No Thyroid Enlargement, Masses Respiratory: Symmetrical Chest Expansion and Respiratory Effort, Clear to Auscultation Cardiovascular: NL Sounds; No Murmurs; No JVD, - - irregular Abdominal: NL Sounds; No Tenderness; No Distention, No Hepatosplenomegaly Lymphatic: No Cervical Adenopathy Extremities: No Clubbing, Cyanosis, - - +1 pitting edema b/l ankles Skin: No Nodules or Sclerosis, - - self inflicted excortiations b/l forearms Neurological: Alert and Oriented x 3, NL Muscle Strength and Tone Result Diagrams: 04/13/17 05:18 04/15/17 06:19 Additional Lab and Data: Lab Results 04/10/17 04/10/17 04/10/17 Range/Units 03:45 04:28 04:28 WBC (3.5-10.8) 10^3/ul RBC (4.0-5.4) 10^6/ul Hgb (12.0-16.0) g/dl Hct (35-47) % MCV (80-97) fL MCH (27-31) pg MCHC (31-36) g/dl RDW (10.5-15) % Plt Count (150-450) 10^3/ul MPV (7.4-10.4) um3 Neut % (Auto) (38-83) % Lymph % (Auto) (25-47) % [place] % (Auto) (1-9) % Eos % (Auto) (0-6) % Baso % (Auto) (0-2) % Absolute Neuts (auto) (1.5-7.7) 10^3/ul Absolute Lymphs (auto) (1.0-4.8) 10^3/ul Absolute Monos (auto) (0-0.8) 10^3/ul Absolute Eos (auto) (0-0.6) 10^3/ul Absolute Basos (auto) (0-0.2) 10^3/ul Absolute Nucleated RBC 10^3/ul Nucleated RBC % INR (Anticoag Therapy) 1.47 H (0.77-1.02) APTT 38.7 H (26.0-36.3) seconds Patient Temperature Not Reportable ABG pH 7.26 L (7.35-7.45) ABG pCO2 54 H (35-45) mmHg ABG pO2 94 (80-100) mmHg ABG HCO3 22.2 (19-31) mmol/L ABG O2 Saturation 98.5 H (95-98) % ABG Base Excess -3.4 L (-2.0-2.0) Respiration Rate Not Reportable O2 Delivery Device Not Reportable Ventilator Type Not Reportable Vent Mode Not Reportable FiO2 100 Inspiratory Time Not Reportable PEEP Not Reportable Pressure Support Not Reportable Pressure Control Not Reportable EPAP 10 IPAP 16 BiPAP Not Reportable Sodium (133-145) mmol/L Potassium (3.5-5.0) mmol/L Chloride (101-111) mmol/L Carbon Dioxide (22-32) mmol/L Anion Gap (2-11) mmol/L BUN (6-24) mg/dL Creatinine (0.51-0.95) mg/dL Est GFR ( Amer) (>60) Est GFR (Non-Af Amer) (>60) BUN/Creatinine Ratio (8-20) Glucose (70-100) mg/dL Lactic Acid (0.5-2.0) mmol/L Calcium (8.6-10.3) mg/dL Total Bilirubin (0.2-1.0) mg/dL AST (13-39) U/L ALT (7-52) U/L Alkaline Phosphatase (34-104) U/L Troponin I (<0.04) ng/mL B-Natriuretic Peptide 867 H ( - 100) pg/mL Total Protein (6.4-8.9) g/dL Albumin (3.2-5.2) g/dL Globulin (2-4) g/dL Albumin/Globulin Ratio (1-3) 04/10/17 04/10/17 04/10/17 Range/Units 04:28 04:28 04:28 WBC 11.1 H (3.5-10.8) 10^3/ul RBC 4.25 (4.0-5.4) 10^6/ul Hgb 13.0 (12.0-16.0) g/dl Hct 40 (35-47) % MCV 93 (80-97) fL MCH 31 (27-31) pg MCHC 33 (31-36) g/dl RDW 17 H (10.5-15) % Plt Count 172 (150-450) 10^3/ul MPV 8 (7.4-10.4) um3 Neut % (Auto) 92.9 H (38-83) % Lymph % (Auto) 2.6 L (25-47) % [place] % (Auto) 3.8 (1-9) % Eos % (Auto) 0.1 (0-6) % Baso % (Auto) 0.6 (0-2) % Absolute Neuts (auto) 10.3 H (1.5-7.7) 10^3/ul Absolute Lymphs (auto) 0.3 L (1.0-4.8) 10^3/ul Absolute Monos (auto) 0.4 (0-0.8) 10^3/ul Absolute Eos (auto) 0 (0-0.6) 10^3/ul Absolute Basos (auto) 0.1 (0-0.2) 10^3/ul Absolute Nucleated RBC 0.01 10^3/ul Nucleated RBC % 0.1 INR (Anticoag Therapy) (0.77-1.02) APTT (26.0-36.3) seconds Patient Temperature ABG pH (7.35-7.45) ABG pCO2 (35-45) mmHg ABG pO2 (80-100) mmHg ABG HCO3 (19-31) mmol/L ABG O2 Saturation (95-98) % ABG Base Excess (-2.0-2.0) Respiration Rate O2 Delivery Device Ventilator Type Vent Mode FiO2 Inspiratory Time PEEP Pressure Support Pressure Control EPAP IPAP BiPAP Sodium 137 (133-145) mmol/L Potassium 3.9 (3.5-5.0) mmol/L Chloride 105 (101-111) mmol/L Carbon Dioxide 26 (22-32) mmol/L Anion Gap 6 (2-11) mmol/L BUN 12 (6-24) mg/dL Creatinine 1.13 H (0.51-0.95) mg/dL Est GFR ( Amer) 61.0 (>60) Est GFR (Non-Af Amer) 47.5 (>60) BUN/Creatinine Ratio 10.6 (8-20) Glucose 233 H (70-100) mg/dL Lactic Acid 1.9 (0.5-2.0) mmol/L Calcium 9.1 (8.6-10.3) mg/dL Total Bilirubin 1.10 H (0.2-1.0) mg/dL AST 7 L (13-39) U/L ALT 4 L (7-52) U/L Alkaline Phosphatase 73 (34-104) U/L Troponin I 0.02 (<0.04) ng/mL B-Natriuretic Peptide ( - 100) pg/mL Total Protein 6.8 (6.4-8.9) g/dL Albumin 3.7 (3.2-5.2) g/dL Globulin 3.1 (2-4) g/dL Albumin/Globulin Ratio 1.2 (1-3) Microbiology and Other Data: Microbiology 04/10/17 07:46 Nasal Screen MRSA (PCR)([facility]) - Final Nasal Mrsa Positive 04/10/17 07:55 Streptococcus pneumoniae Ag Screen - Final Urine Negative S. pneumo Antigen 04/10/17 08:00 Influenza Types A,B Antigen ([facility]) - Final Nasal Specimen received for Influenza A/B Molecular testing Assess/Plan/Problems-Billing Assessment: 71 yo f with h/o seizure disorder(not on meds, COPD with chronic hypoxemic respiratory failure (on 2 l 02 and CPAP at night), A.fib on Xarelto, smoking, HTN, severe pulm HTN, [employer] shunt, Escamilla's presents with hypoxemic respiratory failure and COPD exacerbation - Patient Problems (1) Acute and chronic respiratory failure, unspecified whether with hypoxia or hypercapnia Comment: hypoxemic, but much improved after additional dose of PO Lasix on 04/14. Will change Lasix from 20 mg to 40 mg PO daily, suspect she may need the increased dose for 2-3 days and then go back to home dose of 20 mg cont incentive spirometry cont Prednisone for COPD exacerbation (2) Afib Comment: - Rate controlled. - Contine home atenolol, diltiazem. - Continue xarelto. 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 (4) Diabetes Comment: cont ISS, metformin on hold (5) DVT prophylaxis Comment: - Xarelto (6) Urinary retention Comment: may be due to constipation Had a BM today, but would like to cont Davis till tomorrow. will d/c Davis at 6 AM tomorrow and check post void residual at noon. Status and Disposition: inpatient, anticipated d/c to [facility] in 1-2 days
[2017-04-16] MEDS: Mometasone/Formoter 200/5 MDI INH SCH ×2 (07:30→19:43)
[2017-04-16] MEDS: Tiotropium CAP.INH* CAP.INH/18 MCG (USE ORDER SET !) INH SCH (07:30)
[2017-04-16] MEDS: Insulin LISPRO* 1 UNITS UNIT SUBCUT SCH ×4 (08:22→21:07)
[2017-04-16] MEDS: Omeprazole CAP* 20 MG PO SCH ×2 (08:52→21:06)
[2017-04-16] MEDS: Furosemide TAB* 20 MG PO SCH (08:53)
[2017-04-16] MEDS: Rivaroxaban TAB(*) 20 MG TAB PO SCH (08:53)
[2017-04-16] MEDS: predniSONE TAB* 20 MG PO SCH (08:53)
[2017-04-16] MEDS: Citalopram TAB* 40 MG PO SCH (08:53)
[2017-04-16] MEDS: Docusate CAP* 100 MG PO SCH ×2 (08:53→21:06)
[2017-04-16] MEDS: Diltiazem CD CAP* 120 MG PO SCH (09:00)
[2017-04-16] MEDS: amLODIPine TAB* 5 MG PO SCH (09:00)
[2017-04-16] MEDS: Atenolol TAB* 50 MG PO SCH ×2 (09:00→21:06)
--- NOTE | 2017-04-16 16:38 | PN ---
Subjective Date of Service: 04/16/17 Interval History: Pt is feeling ok. She states she walked earlier today but nursing states that she did not walk much. When she walked to the bathroom this AM she was found to have an O2 sat of 87%. She denies any SOB. No significant cough. Objective Active Medications: Acetaminophen (Tylenol Tab*) 650 mg PO Q6H PRN PRN Reason: PAIN/FEVER Last Admin: 04/11/17 13:21 Dose: 650 mg Albuterol (Ventolin 2.5 Mg/3 Ml Neb.Cherie*) 2.5 mg INH Q2H PRN PRN Reason: SOB/WHEEZING Atenolol (Tenormin Tab*) 50 mg PO BID [facility] Last Admin: 04/16/17 09:00 Dose: 50 mg Citalopram Hydrobromide (Celexa Tab*) 40 mg PO DAILY [facility] Last Admin: 04/16/17 08:53 Dose: 40 mg Diltiazem HCl (Cardizem Cd Cap*) 120 mg PO QAM [facility] Last Admin: 04/16/17 09:00 Dose: Not Given Docusate Sodium (Colace Cap*) 100 mg PO BID [facility] Last Admin: 04/16/17 08:53 Dose: 100 mg Furosemide (Lasix Tab*) 40 mg PO DAILY [facility] Last Admin: 04/16/17 08:53 Dose: 40 mg Insulin Human Lispro (Humalog*) 0 units SUBCUT ACHS [facility] PRN Reason: Protocol Last Admin: 04/16/17 12:34 Dose: 6 units Mometasone Furoate/Formoterol Fumar (Dulera 200/5 Mdi*) 2 puff INH BID [facility] Last Admin: 04/16/17 07:30 Dose: 2 puff Morphine Sulfate (Morphine Inj (Syringe)*) 2 mg IV Q4H PRN PRN Reason: air hunger Omeprazole (Prilosec Cap*) 20 mg PO BID [facility] Last Admin: 04/16/17 08:52 Dose: 20 mg Ondansetron HCl (Zofran Inj*) 4 mg IV Q6H PRN PRN Reason: NAUSEA Last Admin: 04/10/17 10:10 Dose: 4 mg Prednisone (Deltasone Tab*) 40 mg PO DAILY [facility] Last Admin: 04/16/17 08:53 Dose: 40 mg Rivaroxaban (Xarelto (*)) 20 mg PO DAILY [facility] Last Admin: 04/16/17 08:53 Dose: 20 mg Senna (Senokot Tab*) 2 tab PO BEDTIME PRN PRN Reason: CONSTIPATION Last Admin: 04/15/17 09:17 Dose: 2 tab Tiotropium [place] (Spiriva Cap.Inh*) 1 cap INH DAILY [facility] Last Admin: 04/16/17 07:30 Dose: 1 cap Vital Signs - 8 hr 04/16/17 04/16/17 04/16/17 08:56 11:27 12:12 Temperature 98.0 F Pulse Rate 79 74 Respiratory 16 Rate Blood Pressure 109/60 120/53 (mmHg) O2 Sat by Pulse 90 93 Oximetry Oxygen Devices in Use Now: Nasal Cannula - 2L Appearance: Elderly female sitting on the edge of her bed, NAD Eyes: No Scleral Icterus Ears/Nose/Mouth/Throat: Mucous Membranes Moist Respiratory: Symmetrical Chest Expansion and Respiratory Effort, Clear to Auscultation Cardiovascular: NL Sounds; No Murmurs; No JVD, RRR, - - 1+ tense pitting edema of the B/L LE edema Abdominal: NL Sounds; No Tenderness; No Distention Extremities: No Clubbing, Cyanosis Skin: No Rash or Ulcers, No Nodules or Sclerosis Neurological: Alert and Oriented x 3 Result Diagrams: 04/13/17 05:18 04/15/17 06:19 Additional Lab and Data: Lab Results 04/10/17 04/10/17 04/10/17 Range/Units 03:45 04:28 04:28 WBC (3.5-10.8) 10^3/ul RBC (4.0-5.4) 10^6/ul Hgb (12.0-16.0) g/dl Hct (35-47) % MCV (80-97) fL MCH (27-31) pg MCHC (31-36) g/dl RDW (10.5-15) % Plt Count (150-450) 10^3/ul MPV (7.4-10.4) um3 Neut % (Auto) (38-83) % Lymph % (Auto) (25-47) % [place] % (Auto) (1-9) % Eos % (Auto) (0-6) % Baso % (Auto) (0-2) % Absolute Neuts (auto) (1.5-7.7) 10^3/ul Absolute Lymphs (auto) (1.0-4.8) 10^3/ul Absolute Monos (auto) (0-0.8) 10^3/ul Absolute Eos (auto) (0-0.6) 10^3/ul Absolute Basos (auto) (0-0.2) 10^3/ul Absolute Nucleated RBC 10^3/ul Nucleated RBC % INR (Anticoag Therapy) 1.47 H (0.77-1.02) APTT 38.7 H (26.0-36.3) seconds Patient Temperature Not Reportable ABG pH 7.26 L (7.35-7.45) ABG pCO2 54 H (35-45) mmHg ABG pO2 94 (80-100) mmHg ABG HCO3 22.2 (19-31) mmol/L ABG O2 Saturation 98.5 H (95-98) % ABG Base Excess -3.4 L (-2.0-2.0) Respiration Rate Not Reportable O2 Delivery Device Not Reportable Ventilator Type Not Reportable Vent Mode Not Reportable FiO2 100 Inspiratory Time Not Reportable PEEP Not Reportable Pressure Support Not Reportable Pressure Control Not Reportable EPAP 10 IPAP 16 BiPAP Not Reportable Sodium (133-145) mmol/L Potassium (3.5-5.0) mmol/L Chloride (101-111) mmol/L Carbon Dioxide (22-32) mmol/L Anion Gap (2-11) mmol/L BUN (6-24) mg/dL Creatinine (0.51-0.95) mg/dL Est GFR ( Amer) (>60) Est GFR (Non-Af Amer) (>60) BUN/Creatinine Ratio (8-20) Glucose (70-100) mg/dL Lactic Acid (0.5-2.0) mmol/L Calcium (8.6-10.3) mg/dL Total Bilirubin (0.2-1.0) mg/dL AST (13-39) U/L ALT (7-52) U/L Alkaline Phosphatase (34-104) U/L Troponin I (<0.04) ng/mL B-Natriuretic Peptide 867 H ( - 100) pg/mL Total Protein (6.4-8.9) g/dL Albumin (3.2-5.2) g/dL Globulin (2-4) g/dL Albumin/Globulin Ratio (1-3) 04/10/17 04/10/17 04/10/17 Range/Units 04:28 04:28 04:28 WBC 11.1 H (3.5-10.8) 10^3/ul RBC 4.25 (4.0-5.4) 10^6/ul Hgb 13.0 (12.0-16.0) g/dl Hct 40 (35-47) % MCV 93 (80-97) fL MCH 31 (27-31) pg MCHC 33 (31-36) g/dl RDW 17 H (10.5-15) % Plt Count 172 (150-450) 10^3/ul MPV 8 (7.4-10.4) um3 Neut % (Auto) 92.9 H (38-83) % Lymph % (Auto) 2.6 L (25-47) % [place] % (Auto) 3.8 (1-9) % Eos % (Auto) 0.1 (0-6) % Baso % (Auto) 0.6 (0-2) % Absolute Neuts (auto) 10.3 H (1.5-7.7) 10^3/ul Absolute Lymphs (auto) 0.3 L (1.0-4.8) 10^3/ul Absolute Monos (auto) 0.4 (0-0.8) 10^3/ul Absolute Eos (auto) 0 (0-0.6) 10^3/ul Absolute Basos (auto) 0.1 (0-0.2) 10^3/ul Absolute Nucleated RBC 0.01 10^3/ul Nucleated RBC % 0.1 INR (Anticoag Therapy) (0.77-1.02) APTT (26.0-36.3) seconds Patient Temperature ABG pH (7.35-7.45) ABG pCO2 (35-45) mmHg ABG pO2 (80-100) mmHg ABG HCO3 (19-31) mmol/L ABG O2 Saturation (95-98) % ABG Base Excess (-2.0-2.0) Respiration Rate O2 Delivery Device Ventilator Type Vent Mode FiO2 Inspiratory Time PEEP Pressure Support Pressure Control EPAP IPAP BiPAP Sodium 137 (133-145) mmol/L Potassium 3.9 (3.5-5.0) mmol/L Chloride 105 (101-111) mmol/L Carbon Dioxide 26 (22-32) mmol/L Anion Gap 6 (2-11) mmol/L BUN 12 (6-24) mg/dL Creatinine 1.13 H (0.51-0.95) mg/dL Est GFR ( Amer) 61.0 (>60) Est GFR (Non-Af Amer) 47.5 (>60) BUN/Creatinine Ratio 10.6 (8-20) Glucose 233 H (70-100) mg/dL Lactic Acid 1.9 (0.5-2.0) mmol/L Calcium 9.1 (8.6-10.3) mg/dL Total Bilirubin 1.10 H (0.2-1.0) mg/dL AST 7 L (13-39) U/L ALT 4 L (7-52) U/L Alkaline Phosphatase 73 (34-104) U/L Troponin I 0.02 (<0.04) ng/mL B-Natriuretic Peptide ( - 100) pg/mL Total Protein 6.8 (6.4-8.9) g/dL Albumin 3.7 (3.2-5.2) g/dL Globulin 3.1 (2-4) g/dL Albumin/Globulin Ratio 1.2 (1-3) Microbiology and Other Data: Microbiology 04/10/17 07:46 Nasal Screen MRSA (PCR)([facility]) - Final Nasal Mrsa Positive 04/10/17 07:55 Streptococcus pneumoniae Ag Screen - Final Urine Negative S. pneumo Antigen 04/10/17 08:00 Influenza Types A,B Antigen ([facility]) - Final Nasal Specimen received for Influenza A/B Molecular testing Assess/Plan/Problems-Billing Ms Rosado is a 71 yo F with a h/o seizure disorder (not on meds), COPD with chronic hypoxemic respiratory failure (on 2 l 02 and CPAP at night), A.fib on Xarelto, HTN, severe pulm HTN, [employer] shunt following aneurysm clipping and Escamilla' s esophagus who presented to the ER with c/o SOB and was admitted for acute hypoxic respiratory failure secondary to COPD and diastolic CHF. - Patient Problems (1) Acute on chronic respiratory failure with hypoxia Current Visit: Yes Status: Acute Code(s): J96.21 - ACUTE AND CHRONIC RESPIRATORY FAILURE WITH HYPOXIA SNOMED Code(s): 690800564 Comment: Improving with treatment for COPD and likely diastolic CHF. O2 requirements have improved with treatment with lasix. Will re-evaluate tomorrow and likely home if O2 requirements acceptable for home. (2) COPD (chronic obstructive pulmonary disease) Current Visit: Yes Status: Acute Code(s): J44.9 - CHRONIC OBSTRUCTIVE PULMONARY DISEASE, UNSPECIFIED SNOMED Code(s): 37858111 Comment: No signs of exacerbation at this time. Abx have been discontinued previously. Decrease prednisone to 20mg daily. (3) Urinary retention Current Visit: Yes Status: Acute Code(s): R33.9 - RETENTION OF URINE, UNSPECIFIED SNOMED Code(s): 738816633 Comment: Davis removed today and pt able to urinate without any difficulty. (4) Afib Current Visit: Yes Status: Acute Code(s): I48.91 - UNSPECIFIED ATRIAL FIBRILLATION SNOMED Code(s): 70907785 Comment: Sounded regular today. Will continue atenolol and diltiazem. Continue xarelto. (5) Diabetes Current Visit: Yes Status: Acute Code(s): E11.9 - TYPE 2 DIABETES MELLITUS WITHOUT COMPLICATIONS SNOMED Code(s): 99861621 Comment: Resume metformin today. Sugars under ok control. (6) HTN (hypertension) Current Visit: Yes Status: Acute Code(s): I10 - ESSENTIAL (PRIMARY) HYPERTENSION SNOMED Code(s): 74600638 Comment: BP under good control. Stopped amlodipine this AM due to lower BP. Continue atenolol and diltiazem. (7) DVT prophylaxis Current Visit: Yes Status: Acute Code(s): XOI1760 - SNOMED Code(s): 744713282 Comment: xarelto (8) Full code status Current Visit: Yes Status: Acute Code(s): Z78.9 - OTHER SPECIFIED HEALTH STATUS SNOMED Code(s): 578714423 Status and Disposition: .
[2017-04-16] MEDS ORDERED: Diltiazem CD CAP* 120 MG PO SCH (16:50)
[2017-04-16] MEDS: metFORMIN* 500 MG TAB PO SCH (21:06)
[2017-04-17] MEDS: Mometasone/Formoter 200/5 MDI INH SCH (08:34)
[2017-04-17] MEDS: Tiotropium CAP.INH* CAP.INH/18 MCG (USE ORDER SET !) INH SCH (08:37)
[2017-04-17] MEDS ORDERED: predniSONE TAB* 20 MG PO SCH (09:00)
[2017-04-17] MEDS: metFORMIN* 500 MG TAB PO SCH (09:57)
[2017-04-17] MEDS: Furosemide TAB* 20 MG PO SCH (09:57)
[2017-04-17] MEDS: Docusate CAP* 100 MG PO SCH (09:58)
[2017-04-17] MEDS: Rivaroxaban TAB(*) 20 MG TAB PO SCH (09:58)
[2017-04-17] MEDS: Atenolol TAB* 50 MG PO SCH (09:58)
[2017-04-17] MEDS: Omeprazole CAP* 20 MG PO SCH (09:58)
[2017-04-17] MEDS: Citalopram TAB* 40 MG PO SCH (09:58)
[2017-04-17] MEDS: Insulin LISPRO* 1 UNITS UNIT SUBCUT SCH ×2 (10:20→12:21)
--- NOTE | 2017-04-17 11:32 | PN ---
Subjective Date of Service: 04/17/17 Interval History: Pt is feeling well. She denies any SOB. She was seen walking in the [place] this AM with PT and had no issues. O2 sat 93% on 2L. She feels ready to go home today. Objective Active Medications: Acetaminophen (Tylenol Tab*) 650 mg PO Q6H PRN PRN Reason: PAIN/FEVER Last Admin: 04/11/17 13:21 Dose: 650 mg Albuterol (Ventolin 2.5 Mg/3 Ml Neb.Cherie*) 2.5 mg INH Q2H PRN PRN Reason: SOB/WHEEZING Atenolol (Tenormin Tab*) 50 mg PO BID [facility] Last Admin: 04/17/17 09:58 Dose: 50 mg Citalopram Hydrobromide (Celexa Tab*) 40 mg PO DAILY [facility] Last Admin: 04/17/17 09:58 Dose: 40 mg Diltiazem HCl (Cardizem Cd Cap*) 120 mg PO QAM [facility] Last Admin: 04/17/17 09:58 Dose: 120 mg Docusate Sodium (Colace Cap*) 100 mg PO BID [facility] Last Admin: 04/17/17 09:58 Dose: 100 mg Furosemide (Lasix Tab*) 40 mg PO DAILY [facility] Last Admin: 04/17/17 09:57 Dose: 40 mg Insulin Human Lispro (Humalog*) 0 units SUBCUT ACHS [facility] PRN Reason: Protocol Last Admin: 04/17/17 10:20 Dose: Not Given Metformin HCl (Glucophage*) 1,000 mg PO BID [facility] Last Admin: 04/17/17 09:57 Dose: 1,000 mg Mometasone Furoate/Formoterol Fumar (Dulera 200/5 Mdi*) 2 puff INH BID [facility] Last Admin: 04/17/17 08:34 Dose: 2 puff Morphine Sulfate (Morphine Inj (Syringe)*) 2 mg IV Q4H PRN PRN Reason: air hunger Omeprazole (Prilosec Cap*) 20 mg PO BID [facility] Last Admin: 04/17/17 09:58 Dose: 20 mg Ondansetron HCl (Zofran Inj*) 4 mg IV Q6H PRN PRN Reason: NAUSEA Last Admin: 04/10/17 10:10 Dose: 4 mg Prednisone (Deltasone Tab*) 20 mg PO DAILY [facility] Last Admin: 04/17/17 09:58 Dose: 20 mg Rivaroxaban (Xarelto (*)) 20 mg PO DAILY [facility] Last Admin: 04/17/17 09:58 Dose: 20 mg Senna (Senokot Tab*) 2 tab PO BEDTIME PRN PRN Reason: CONSTIPATION Last Admin: 04/15/17 09:17 Dose: 2 tab Tiotropium [place] (Spiriva Cap.Inh*) 1 cap INH DAILY [facility] Last Admin: 04/17/17 08:37 Dose: 1 cap Oxygen Devices in Use Now: Nasal Cannula - 2L Appearance: Elderly female sitting on the edge of the bed, NAD Eyes: No Scleral Icterus Ears/Nose/Mouth/Throat: Mucous Membranes Moist Respiratory: Symmetrical Chest Expansion and Respiratory Effort, Clear to Auscultation Cardiovascular: NL Sounds; No Murmurs; No JVD, No Edema, - - 1+ pitting edema of B/L LE Abdominal: NL Sounds; No Tenderness; No Distention Extremities: No Clubbing, Cyanosis Skin: No Rash or Ulcers, No Nodules or Sclerosis Neurological: Alert and Oriented x 3 Result Diagrams: 04/13/17 05:18 04/15/17 06:19 Additional Lab and Data: Lab Results 04/10/17 04/10/17 04/10/17 Range/Units 03:45 04:28 04:28 WBC (3.5-10.8) 10^3/ul RBC (4.0-5.4) 10^6/ul Hgb (12.0-16.0) g/dl Hct (35-47) % MCV (80-97) fL MCH (27-31) pg MCHC (31-36) g/dl RDW (10.5-15) % Plt Count (150-450) 10^3/ul MPV (7.4-10.4) um3 Neut % (Auto) (38-83) % Lymph % (Auto) (25-47) % [place] % (Auto) (1-9) % Eos % (Auto) (0-6) % Baso % (Auto) (0-2) % Absolute Neuts (auto) (1.5-7.7) 10^3/ul Absolute Lymphs (auto) (1.0-4.8) 10^3/ul Absolute Monos (auto) (0-0.8) 10^3/ul Absolute Eos (auto) (0-0.6) 10^3/ul Absolute Basos (auto) (0-0.2) 10^3/ul Absolute Nucleated RBC 10^3/ul Nucleated RBC % INR (Anticoag Therapy) 1.47 H (0.77-1.02) APTT 38.7 H (26.0-36.3) seconds Patient Temperature Not Reportable ABG pH 7.26 L (7.35-7.45) ABG pCO2 54 H (35-45) mmHg ABG pO2 94 (80-100) mmHg ABG HCO3 22.2 (19-31) mmol/L ABG O2 Saturation 98.5 H (95-98) % ABG Base Excess -3.4 L (-2.0-2.0) Respiration Rate Not Reportable O2 Delivery Device Not Reportable Ventilator Type Not Reportable Vent Mode Not Reportable FiO2 100 Inspiratory Time Not Reportable PEEP Not Reportable Pressure Support Not Reportable Pressure Control Not Reportable EPAP 10 IPAP 16 BiPAP Not Reportable Sodium (133-145) mmol/L Potassium (3.5-5.0) mmol/L Chloride (101-111) mmol/L Carbon Dioxide (22-32) mmol/L Anion Gap (2-11) mmol/L BUN (6-24) mg/dL Creatinine (0.51-0.95) mg/dL Est GFR ( Amer) (>60) Est GFR (Non-Af Amer) (>60) BUN/Creatinine Ratio (8-20) Glucose (70-100) mg/dL Lactic Acid (0.5-2.0) mmol/L Calcium (8.6-10.3) mg/dL Total Bilirubin (0.2-1.0) mg/dL AST (13-39) U/L ALT (7-52) U/L Alkaline Phosphatase (34-104) U/L Troponin I (<0.04) ng/mL B-Natriuretic Peptide 867 H ( - 100) pg/mL Total Protein (6.4-8.9) g/dL Albumin (3.2-5.2) g/dL Globulin (2-4) g/dL Albumin/Globulin Ratio (1-3) 04/10/17 04/10/17 04/10/17 Range/Units 04:28 04:28 04:28 WBC 11.1 H (3.5-10.8) 10^3/ul RBC 4.25 (4.0-5.4) 10^6/ul Hgb 13.0 (12.0-16.0) g/dl Hct 40 (35-47) % MCV 93 (80-97) fL MCH 31 (27-31) pg MCHC 33 (31-36) g/dl RDW 17 H (10.5-15) % Plt Count 172 (150-450) 10^3/ul MPV 8 (7.4-10.4) um3 Neut % (Auto) 92.9 H (38-83) % Lymph % (Auto) 2.6 L (25-47) % [place] % (Auto) 3.8 (1-9) % Eos % (Auto) 0.1 (0-6) % Baso % (Auto) 0.6 (0-2) % Absolute Neuts (auto) 10.3 H (1.5-7.7) 10^3/ul Absolute Lymphs (auto) 0.3 L (1.0-4.8) 10^3/ul Absolute Monos (auto) 0.4 (0-0.8) 10^3/ul Absolute Eos (auto) 0 (0-0.6) 10^3/ul Absolute Basos (auto) 0.1 (0-0.2) 10^3/ul Absolute Nucleated RBC 0.01 10^3/ul Nucleated RBC % 0.1 INR (Anticoag Therapy) (0.77-1.02) APTT (26.0-36.3) seconds Patient Temperature ABG pH (7.35-7.45) ABG pCO2 (35-45) mmHg ABG pO2 (80-100) mmHg ABG HCO3 (19-31) mmol/L ABG O2 Saturation (95-98) % ABG Base Excess (-2.0-2.0) Respiration Rate O2 Delivery Device Ventilator Type Vent Mode FiO2 Inspiratory Time PEEP Pressure Support Pressure Control EPAP IPAP BiPAP Sodium 137 (133-145) mmol/L Potassium 3.9 (3.5-5.0) mmol/L Chloride 105 (101-111) mmol/L Carbon Dioxide 26 (22-32) mmol/L Anion Gap 6 (2-11) mmol/L BUN 12 (6-24) mg/dL Creatinine 1.13 H (0.51-0.95) mg/dL Est GFR ( Amer) 61.0 (>60) Est GFR (Non-Af Amer) 47.5 (>60) BUN/Creatinine Ratio 10.6 (8-20) Glucose 233 H (70-100) mg/dL Lactic Acid 1.9 (0.5-2.0) mmol/L Calcium 9.1 (8.6-10.3) mg/dL Total Bilirubin 1.10 H (0.2-1.0) mg/dL AST 7 L (13-39) U/L ALT 4 L (7-52) U/L Alkaline Phosphatase 73 (34-104) U/L Troponin I 0.02 (<0.04) ng/mL B-Natriuretic Peptide ( - 100) pg/mL Total Protein 6.8 (6.4-8.9) g/dL Albumin 3.7 (3.2-5.2) g/dL Globulin 3.1 (2-4) g/dL Albumin/Globulin Ratio 1.2 (1-3) Microbiology and Other Data: Microbiology 04/10/17 07:46 Nasal Screen MRSA (PCR)([facility]) - Final Nasal Mrsa Positive 04/10/17 07:55 Streptococcus pneumoniae Ag Screen - Final Urine Negative S. pneumo Antigen 04/10/17 08:00 Influenza Types A,B Antigen ([facility]) - Final Nasal Specimen received for Influenza A/B Molecular testing Assess/Plan/Problems-Billing Ms Rosado is a 71 yo F with a h/o seizure disorder (not on meds), COPD with chronic hypoxemic respiratory failure (on 2 l 02 and CPAP at night), A.fib on Xarelto, HTN, severe pulm HTN, [employer] shunt following aneurysm clipping and Escamilla' s esophagus who presented to the ER with c/o SOB and was admitted for acute hypoxic respiratory failure secondary to COPD and diastolic CHF. - Patient Problems (1) Acute on chronic respiratory failure with hypoxia Current Visit: Yes Status: Acute Code(s): J96.21 - ACUTE AND CHRONIC RESPIRATORY FAILURE WITH HYPOXIA SNOMED Code(s): 566308918 Comment: Improved with treatment for COPD and diastolic CHF. O2 requirements have improved with treatment with lasix. Pt is only requiring 2L O2. (2) COPD (chronic obstructive pulmonary disease) Current Visit: Yes Status: Acute Code(s): J44.9 - CHRONIC OBSTRUCTIVE PULMONARY DISEASE, UNSPECIFIED SNOMED Code(s): 35035496 Comment: No signs of exacerbation at this time. Abx have been discontinued previously. Continue prednisone 20mg daily x5 days then 10mg x5 days then stop. (3) Urinary retention Current Visit: Yes Status: Acute Code(s): R33.9 - RETENTION OF URINE, UNSPECIFIED SNOMED Code(s): 240617394 Comment: Pt able to urinate without difficulty. (4) Afib Current Visit: Yes Status: Acute Code(s): I48.91 - UNSPECIFIED ATRIAL FIBRILLATION SNOMED Code(s): 31848485 Comment: Continue atenolol and diltiazem. Continue xarelto. (5) Diabetes Current Visit: Yes Status: Acute Code(s): E11.9 - TYPE 2 DIABETES MELLITUS WITHOUT COMPLICATIONS SNOMED Code(s): 89886398 Comment: Continue metformin. Sugars should improve after steroids are tapered. (6) HTN (hypertension) Current Visit: Yes Status: Acute Code(s): I10 - ESSENTIAL (PRIMARY) HYPERTENSION SNOMED Code(s): 44954964 Comment: BP under good control. Continue atenolol and diltiazem. (7) DVT prophylaxis Current Visit: Yes Status: Acute Code(s): BUQ9476 - SNOMED Code(s): 122809937 Comment: xarelto (8) Full code status Current Visit: Yes Status: Acute Code(s): Z78.9 - OTHER SPECIFIED HEALTH STATUS SNOMED Code(s): 068520960 Status and Disposition: d/c home
[2017-04-17 13:16] VITALS: BP 118/77
--- NOTE | 2017-04-18 07:22 | DS ---
CC: Dr. Fernandez * DISCHARGE SUMMARY: DATE OF ADMISSION: 04/10/17 DATE OF DISCHARGE: 04/17/17 PRIMARY CARE PROVIDER: Dr. Fernandez. PRINCIPAL DIAGNOSIS: Acute hypoxic respiratory failure, likely secondary to COPD and decompensated diastolic congestive heart failure. SECONDARY DIAGNOSES: 1. Type 2 diabetes. 2. Stage 3 chronic kidney disease. 3. Atrial fibrillation. 4. Seizure disorder. 5. Hypertension. 6. Hyperlipidemia. 7. Gastroesophageal reflux disease. 8. Depression. DISCHARGE MEDICATIONS: 1. Omeprazole 20 mg p.o. b.i.d. 2. Metformin 1000 mg p.o. b.i.d. 3. Citalopram 40 mg p.o. daily. 4. Atenolol 50 mg p.o. b.i.d. 5. Xarelto 20 mg p.o. daily. 6. Bentyl 10 mg p.o. t.i.d. 7. Vitamin B12 500 mcg p.o. daily. 8. Lasix 20 mg p.o. daily. 9. Diltiazem CD 120 mg p.o. daily. 10. Ferrous sulfate 325 mg p.o. daily. 11. Alendronate 70 mg p.o. weekly. 12. Prednisone 20 mg p.o. daily x5 days, then 10 mg p.o. daily x6 days. 13. Spiriva one puff inhaled daily (new). 14. Dulera 200/5 two puffs inhale twice daily (new). HOSPITAL COURSE: Ms. Rosado is a 71-year-old female who has a history of COPD, AFib, likely diastolic CHF, seizure disorder, stage 2 chronic kidney disease who presents to emergency room with complaints of shortness of breath. The patient was admitted for [id number] hypoxic respiratory failure requiring BiPAP. The patient was initially admitted to the ICU. There was a question of diastolic heart failure on admission versus an infectious source for her respiratory failure. The patient did receive a few days' worth of IV antibiotics. However, it was felt ultimately that the respiratory failure was not secondary to an infectious process and more likely secondary to COPD. The patient was able to be liberated from BiPAP and was transferred to the floor. However, the patient was still having high O2 requirements, specifically with ambulation. Because of this, IV Lasix was then utilized. The patient had a good amount of diuresis and, with this, her O2 saturations have improved. I suspect there is also a component of acute decompensated diastolic congestive heart failure also leading to her hypoxic respiratory failure. The patient has had a very good response to an increased dose of Lasix. However, she has been discharged on her usual home dose of Lasix. She will continue on prednisone for another 11 days as a slow taper for her probable COPD exacerbation on admission. The patient, at this point, is now felt to be stable for discharge home. The patient had an issue with urinary retention earlier this hospitalization. The Davis catheter was removed on 04/16/17. She has been able to urinate without any difficulty. The patient has atrial fibrillation, which has been controlled with atenolol and diltiazem. The patient will also be continued on her home dose of Xarelto. The patient's diabetes has been somewhat difficult to manage in the hospital. However, she has been on high-dose prednisone. Her hemoglobin A1c on admission is only mildly elevated at 7.1%. The patient has been maintained on her usual home dose of metformin; and, I suspect as she comes off the steroid, her sugars will return to baseline. FOLLOWUP CONCERNS: The patient is being discharged home today, 04/17/17. ACTIVITY LEVEL: As tolerated. DIET: Diabetic, heart-healthy. CONDITION ON DISCHARGE: Stable. The patient should follow up with Dr. Mccarthy in the next 4 to 7 days. TIME SPENT: Thirty-five minutes were spent discharging this patient. [id number]/[facility] #: [id number] DOREEN
== END 2017-04-17 15:05 | disposition home or self-care (01) | DRG 291 ==
LOC: ED 03:21 → ICU 06:32 → MED 04-12 11:35
PROVIDERS: ADMIT Hospitalist; ATTEND Hospitalist
PROC: 0T9B70Z Drainage of Bladder with Drainage Device, Via Natural or Artificial Opening (ICD-10-PCS; principal; 2017-04-10)
PROC: 5A1945Z Respiratory Ventilation, 24-96 Consecutive Hours (ICD-10-PCS; 2017-04-10)
PROC: 0TPBX0Z Removal of Drainage Device from Bladder, External Approach (ICD-10-PCS; 2017-04-16)
DX: I13.0 Hypertensive heart and chronic kidney disease with heart failure and stage 1 through stage 4 chronic kidney disease, or unspecified chronic kidney disease (principal); J96.21 Acute and chronic respiratory failure with hypoxia; N17.9 Acute kidney failure, unspecified; I27.20 Pulmonary hypertension, unspecified; E11.22 Type 2 diabetes mellitus with diabetic chronic kidney disease; J44.9 Chronic obstructive pulmonary disease, unspecified; E66.01 Morbid (severe) obesity due to excess calories; I48.91 Unspecified atrial fibrillation; G40.909 Epilepsy, unspecified, not intractable, without status epilepticus; E78.5 Hyperlipidemia, unspecified; J96.22 Acute and chronic respiratory failure with hypercapnia; I50.33 Acute on chronic diastolic (congestive) heart failure; J98.11 Atelectasis; F17.210 Nicotine dependence, cigarettes, uncomplicated; F32.9 Major depressive disorder, single episode, unspecified; K21.9 Gastro-esophageal reflux disease without esophagitis; K22.70 Barrett's esophagus without dysplasia; N18.3 Chronic kidney disease, stage 3 (moderate); M81.0 Age-related osteoporosis without current pathological fracture; R33.9 Retention of urine, unspecified; M19.90 Unspecified osteoarthritis, unspecified site; H26.9 Unspecified cataract; K59.00 Constipation, unspecified; N13.9 Obstructive and reflux uropathy, unspecified; Z79.84 Long term (current) use of oral hypoglycemic drugs; Z87.01 Personal history of pneumonia (recurrent); Z98.2 Presence of cerebrospinal fluid drainage device; Z90.710 Acquired absence of both cervix and uterus; Z82.49 Family history of ischemic heart disease and other diseases of the circulatory system; Z83.3 Family history of diabetes mellitus; Z68.31 Body mass index [BMI] 31.0-31.9, adult; Z86.718 Personal history of other venous thrombosis and embolism; Z87.442 Personal history of urinary calculi; Z90.49 Acquired absence of other specified parts of digestive tract; Z80.3 Family history of malignant neoplasm of breast; Z79.01 Long term (current) use of anticoagulants
CPT/HCPCS: 36415; 36600; 71010; 80048; 80053; 80202; 81003; 82565; 82803; 83036; 83605; 83735; 83880; 84100; 84484; 84520; 85025; 85610; 85730; 87040; 87502; 87641; 87899; 93005; 93306; 94640; 94660; 94667; 94760; 99406; A9270-GY; J0692; J1940; J2405; J2543; J2930; J3370; J3475; J7512

== ENCOUNTER → 2018-09-17 12:34 | Emergency (ER) | payer MEDICARE ==
--- NOTE | 2018-09-17 13:52 | ED ---
Throat Pain/Nasal Congestion - HPI Summary HPI Summary: Patient is a 72-year-old female who presents emergency Department with her daughter for decreased hearing. Patient's daughter states she's been having difficulty hearing for years and recently started wearing a hearing aid in the left. Patient's daughter states this was improving her hearing until today when she was not hearing as well. No recent illness, illness, pain, headache, change mental status, numbness, tingling or weakness. Symptoms are mild in severity. No current modifying factors. - History of Current Complaint Chief Complaint: EDEarPain Time Seen by Provider: 09/17/18 12:47 Hx Obtained From: Patient, Family/Fiscal Officer - Allergies/Home Medications Allergies/Adverse Reactions: Allergies Allergy/AdvReac Type Severity Reaction Status Date / Time tomato Allergy Swelling Verified 09/17/18 12:36 Of Face,Lips,& Throat PMH/Surg Hx/FS Hx/Imm Hx Previously Healthy: Yes Endocrine/Hematology History: Reports: Hx Diabetes - DM II Denies: Hx Anticoagulant Therapy, Hx Thyroid Disease, Hx Anemia, Hx Unexplained Bleeding Cardiovascular History: Reports: Hx Aneurysm - CEREBRAL ANEURYSM WITH CLIP, Hx Angina, Hx Congestive Heart Failure, Hx Deep Vein Thrombosis, Hx Hypercholesterolemia - HLD, Hx Hypertension, Other Cardiovascular Problems/ Disorders - murmur Denies: Hx Angioplasty, Hx Auto Implanted Cardiovert Defib, Hx Cardiac Arrest , Hx Cardiomegaly, Hx Coronary Artery Disease, Hx Hypotension, Hx Pacemaker/ICD , Hx Peripheral Vascular Disease, Hx Rheumatic Fever, Hx Valvular Heart Disease Respiratory History: Reports: Hx Chronic Obstructive Pulmonary Disease (COPD), Hx Pneumonia, Other Respiratory Problems/Disorders - HX INTUBATION 2013 W/FLU A Denies: Hx Asthma, Hx Chronic Bronchitis, Hx Pleural Effusion, Hx Pulmonary Edema, Hx Pulmonary Embolism, Hx Seasonal Allergies, Hx Sleep Apnea GI History: Reports: Hx Gall Bladder Disease, Hx Gastroesophageal Reflux Disease - TAKES OMEPRAZOLE, Hx Ulcer - GI, Other GI Disorders - BARRETTS ESOPHAGUS Denies: Hx Cirrhosis, Hx Diverticulosis, Hx Gastrointestinal Bleed, Hx Irritable Bowel History: Reports: Hx Kidney Stones - 2 WEEKS AGO, Hx Renal Disease - URINARY SEPSIS, Other Problems/Disorders - RENAL INSUFF Denies: Hx Dialysis Musculoskeletal History: Reports: Hx Arthritis, Hx Back Problems, Hx Bursitis, Other Musculoskeletal History - hernia Sensory History: Reports: Hx Cataracts Denies: Hx Contacts or Glasses - unable to determine, Hx Hearing Aid - unable to determine Opthamlomology History: Reports: Hx Cataracts Denies: Hx Contacts or Glasses - unable to determine Neurological History: Reports: Hx Seizures, Other Neuro Impairments/Disorders - CEREBRAL ANEURYSM, 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 LUMBAR LAMINECTOMY. CHOLECYSTECTOMY. CEREBRAL ANEURYSM CLIPPING 2002. FOOT SURGERY 2001. PICC LINE 2013. HYSTERECTOMY Hx Anesthesia Reactions: No - Immunization History Date of Tetanus Vaccine: Unknown Date of Influenza Vaccine: Unk Infectious Disease History: No Infectious Disease History: Denies: Hx Hepatitis, Hx Human Immunodeficiency Virus (HIV), Hx Shingles, Hx Tuberculosis, Traveled Outside the [place] in Last 30 Days - Family History Known Family History: Positive: Cardiac Disease - CAD, Other - neg: Breast CA - Social History Occupation: Retired Lives: With Family Alcohol Use: unable to determine Hx Substance Use: No Substance Use Type: Reports: None Hx Tobacco Use: Yes Smoking Status (MU): Heavy Every Day Tobacco Smoker Type: Cigarettes Amount Used/How Often: 1ppd Length of Time of Smoking/Using Tobacco: 40years Have You Smoked in the Last Year: Yes Review of Systems Constitutional: Negative Negative: Fever, Chills Eyes: Negative Positive: Other - decreased hearing Cardiovascular: Negative Negative: Chest Pain Respiratory: Negative Negative: Shortness Of Breath Neurological: Negative Negative: Headache, Weakness, Paresthesia, Numbness, Syncope, Slurred Speech All Other Systems Reviewed And Are Negative: Yes Physical Exam Triage Information Reviewed: Yes Vital Signs On Initial Exam: Initial Vitals Temp Pulse Resp BP Pulse Ox 98.0 F 80 16 121/74 92 09/17/18 12:36 09/17/18 12:36 09/17/18 12:36 09/17/18 12:36 09/17/18 12:36 Vital Signs Reviewed: Yes Appearance: Positive: Well-Appearing - Pt. sitting on side of bed in NAD. Daughter present., Well-Nourished Skin: Positive: Warm, Dry Head/Face: Positive: Normal Head/Face Inspection Eyes: Positive: Normal, EOMI, MAGGIE, Conjunctiva Clear ENT: Positive: Other - Hearing aid to left ear. Cerumen impaction of left and moderate cerumen on right. Neurological: Positive: Normal, CN Intact II-III Psychiatric: Positive: Affect/Mood Appropriate Diagnostics - Vital Signs Vital Signs Temp Pulse Resp BP Pulse Ox 09/17/18 12:36 98.0 F 80 16 121/74 92 - Laboratory Lab Statement: Any lab studies that have been ordered have been reviewed, and results considered in the medical decision making process. EENT Course/Dx - Course Course Of Treatment: Patient account have bilateral cerumen on exam. Was able to remove quite a bit of cerumen bilaterally with ear curet. Patient's nurse is able to flush left ear and remove more cerumen. Patient was feeling better. We'll discharge home. Advised to use [id number] Debrox if needed. Will follow-up with PCP. - Differential Diagnoses Differential Diagnoses: Cerumen Impaction, Otitis Externa, Otitis Media - Diagnoses Provider Diagnoses: Cerumen impaction Discharge - Sign-Out/Discharge Documenting (check all that apply): Patient Departure Patient Received Moderate/Deep Sedation with Procedure: No - Discharge Plan Condition: Improved Disposition: HOME Patient Education Materials: Cerumen Impaction (ED) Referrals: Morgan Mccarthy MD [Primary Care Provider] - Additional Instructions: Follow up with PCP if symptoms persist Can use over the counter debrox drops to help soften wax in left ear Return to ER if symptoms change or worsen - Billing Disposition and Condition Condition: IMPROVED Disposition: Home
[2018-09-17 14:45] VITALS: BP 131/67
== END | disposition home or self-care (01) ==
LOC: ED 12:34
DX: H61.23 Impacted cerumen, bilateral (principal); I11.0 Hypertensive heart disease with heart failure; I50.9 Heart failure, unspecified; E78.00 Pure hypercholesterolemia, unspecified; E11.9 Type 2 diabetes mellitus without complications; J44.9 Chronic obstructive pulmonary disease, unspecified; K21.9 Gastro-esophageal reflux disease without esophagitis; F17.210 Nicotine dependence, cigarettes, uncomplicated; Z95.828 Presence of other vascular implants and grafts; Z86.718 Personal history of other venous thrombosis and embolism; Z79.899 Other long term (current) drug therapy; Z98.2 Presence of cerebrospinal fluid drainage device; Z97.4 Presence of external hearing-aid
CPT/HCPCS: 69210; 99281

== ENCOUNTER 2018-09-18 13:12 | Inpatient (IN) | payer MEDICARE ==
[2018-09-18] MEDS ORDERED: Meclizine TAB* 12.5 MG PO ONE (13:52)
[2018-09-18] MEDS ORDERED: NS 0.9% 1000 ML** 1,000 ML IV ONE (13:52)
[2018-09-18 14:33] LABS: ABS Eosinophils 0.1 10^3/ul (0-0.6); ABS Lymphocytes 0.3 10^3/ul (1.0-4.8); ABS Monocytes 0.3 10^3/ul (0-0.8); Eosinophil % 1.4 %; Hematocrit 41 % (35-47); Hemoglobin 13.6 g/dL (12.0-16.0); Lymphocyte % 5.7 %; Mean Corpuscular HGB Conc 33 g/dL (31-36); Mean Corpuscular Hemoglobin 30 pg (27-31); Mean Corpuscular Volume 93 fL (80-97); Platelet Count 128 10^3/uL (150-450); Red Blood Count 4.46 10^6 /uL (3.70-4.87); Red Cell Distribution Width 16 % (10.5-15); White Blood Count 5.8 10^3/uL (3.5-10.8)
[2018-09-18 14:47] LABS: ALT 5 U/L (7-52); AST 8 U/L (13-39); Albumin 3.7 g/dL (3.2-5.2); Albumin/Globulin Ratio 1.2 (1-3); Alkaline Phosphatase 68 U/L (34-104); Anion Gap 8 mmol/L (2-11); BUN/Creatinine Ratio 20.8 (8-20); Blood Urea Nitrogen 25 mg/dL (6-24); CO2 Carbon Dioxide 23 mmol/L (22-32); Calcium 9.1 mg/dL (8.6-10.3); Chloride 105 mmol/L (101-111); EGFR African American 53.4 (>60); EGFR Non-African American 44.2 (>60); Globulin 3.1 g/dL (2-4); Glucose 147 mg/dL (70-100); Magnesium 1.5 mg/dL (1.9-2.7); Potassium 4.4 mmol/L (3.5-5.0); Sodium 136 mmol/L (135-145); Total Protein 6.8 g/dL (6.4-8.9)
[2018-09-18 14:49] LABS: Troponin I 0.04 ng/mL (<0.04)
[2018-09-18 14:59] LABS: TSH (Thyroid Stimulating Horm) 3.33 mcIU/mL (0.34-5.60)
--- NOTE | 2018-09-18 15:56 | ED ---
Dizziness - HPI Summary HPI Summary: Patient is a 72-year-old female who presents emergency department for dizziness that started around 10:30 today. Patient states she has had dizziness in the past but today's episode was a little different. Patient states she was sitting at her computer at home when she turned her head suddenly and developed dizziness as in the room is spinning. She denies associated symptoms of ataxia , chest pain, shortness of breath, diaphoresis. Patient denies recent illness, fever, abdominal pain, vomiting, diarrhea, urinary symptoms. Patient was seen in the ER for cerumen impaction yesterday and states her hearing is better today. Symptoms are moderate in severity. Patient denies was, tingling or weakness. Symptoms are exacerbated by moving head and improved with resting still. Past medical history of COPD, hypertension, A. fib, diabetes. Is anticoagulated on Xarelto. - History Of Current Complaint Chief Complaint: EDDizziness Stated Complaint: DIZZINESS PER EMS Time Seen by Provider: 09/18/18 13:37 Hx Obtained From: Patient - Allergies/Home Medications Allergies/Adverse Reactions: Allergies Allergy/AdvReac Type Severity Reaction Status Date / Time tomato Allergy Swelling Verified 09/18/18 13:29 Of Face,Lips,& Throat Home Medications: Home Medications Budesonide/Formote 160/4.5(NF) [Symbicort 160/4.5 (NF)] 2 puff INH BID 09/18/18 [History Confirmed 09/18/18] Cholestyramine Resin* [Questran*] 4 gm PO DAILY 09/18/18 [History Confirmed ] Furosemide TAB* [Lasix TAB*] 40 mg PO DAILY 09/18/18 [History Confirmed 09/18/18 ] Metolazone TAB* [Zaroxolyn TAB*] 5 mg PO DAILY 09/18/18 [History Confirmed 09/18] Rivaroxaban TAB(*) [Xarelto 15 mg(*)] 15 mg PO DAILY 09/18/18 [History Confirmed 09/18/18] Umeclidinium 62.5 MDI(NF) [Incruse ELLIPTA MDI (NF)] 1 puff INH DAILY 09/18/18 [ History Confirmed 09/18/18] dilTIAZem HCl [Diltiazem 24Hr ER] 120 mg PO DAILY 09/18/18 [History Confirmed ] traMADol TAB* [Ultram*] 50 mg PO Q6HR PRN 09/18/18 [History Confirmed 09/18/18] PMH/Surg Hx/FS Hx/Imm Hx Previously Healthy: Yes Endocrine/Hematology History: Reports: Hx Diabetes - DM II Denies: Hx Anticoagulant Therapy, Hx Thyroid Disease, Hx Anemia, Hx Unexplained Bleeding Cardiovascular History: Reports: Hx Aneurysm - CEREBRAL ANEURYSM WITH CLIP, Hx Angina, Hx Congestive Heart Failure, Hx Deep Vein Thrombosis, Hx Hypercholesterolemia - HLD, Hx Hypertension, Other Cardiovascular Problems/ Disorders - murmur Denies: Hx Angioplasty, Hx Auto Implanted Cardiovert Defib, Hx Cardiac Arrest , Hx Cardiomegaly, Hx Coronary Artery Disease, Hx Hypotension, Hx Pacemaker/ICD , Hx Peripheral Vascular Disease, Hx Rheumatic Fever, Hx Valvular Heart Disease Respiratory History: Reports: Hx Chronic Obstructive Pulmonary Disease (COPD), Hx Pneumonia, Other Respiratory Problems/Disorders - HX INTUBATION 2013 W/ A Denies: Hx Asthma, Hx Chronic Bronchitis, Hx Pleural Effusion, Hx Pulmonary Edema, Hx Pulmonary Embolism, Hx Seasonal Allergies, Hx Sleep Apnea GI History: Reports: Hx Gall Bladder Disease, Hx Gastroesophageal Reflux Disease - TAKES OMEPRAZOLE, Hx Ulcer - GI, Other GI Disorders - BARRETTS ESOPHAGUS Denies: Hx Cirrhosis, Hx Diverticulosis, Hx Gastrointestinal Bleed, Hx Irritable Bowel History: Reports: Hx Kidney Stones - 2 WEEKS AGO, Hx Renal Disease - URINARY SEPSIS, Other Problems/Disorders - RENAL INSUFF Denies: Hx Dialysis Musculoskeletal History: Reports: Hx Arthritis, Hx Back Problems, Hx Bursitis, Other Musculoskeletal History - hernia Sensory History: Reports: Hx Cataracts Denies: Hx Contacts or Glasses - unable to determine, Hx Hearing Aid - unable to determine Opthamlomology History: Reports: Hx Cataracts Denies: Hx Contacts or Glasses - unable to determine Neurological History: Reports: Hx Seizures, Other Neuro Impairments/Disorders - CEREBRAL ANEURYSM, 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 LUMBAR LAMINECTOMY. CHOLECYSTECTOMY. CEREBRAL ANEURYSM CLIPPING 2002. FOOT SURGERY 2001. PICC LINE 2014. HYSTERECTOMY Hx Anesthesia Reactions: No - Immunization History Date of Tetanus Vaccine: Unknown Date of Influenza Vaccine: Unk Infectious Disease History: No Infectious Disease History: Denies: Hx Hepatitis, Hx Human Immunodeficiency Virus (HIV), Hx Shingles, Hx Tuberculosis, Traveled Outside the [place] in Last 30 Days - Family History Known Family History: Positive: Cardiac Disease - CAD, Other - neg: Breast CA - Social History Lives: With Family Alcohol Use: Occasionally Hx Substance Use: No Substance Use Type: Reports: None Hx Tobacco Use: Yes Smoking Status (MU): Heavy Every Day Tobacco Smoker Type: Cigarettes Amount Used/How Often: 1ppd Length of Time of Smoking/Using Tobacco: 40years Have You Smoked in the Last Year: Yes Review of Systems Constitutional: Negative Negative: Fever, Chills Cardiovascular: Negative Negative: Palpitations, Chest Pain Respiratory: Negative Negative: Shortness Of Breath Gastrointestinal: Negative Negative: Abdominal Pain, Vomiting, Diarrhea Genitourinary: Negative Negative: dysuria Musculoskeletal: Negative Skin: Negative Neurological: Other - dizziness Negative: Headache, Weakness, Paresthesia, Numbness, Syncope, Slurred Speech All Other Systems Reviewed And Are Negative: Yes Physical Exam Triage Information Reviewed: Yes Vital Signs On Initial Exam: Initial Vitals Temp Pulse Resp BP Pulse Ox 98.4 F 62 20 120/84 92 09/18/18 13:15 09/18/18 13:15 09/18/18 13:15 09/18/18 13:15 09/18/18 13:15 Vital Signs Reviewed: Yes Appearance: Positive: Well-Appearing - Pt. sitting up in bed in NAD. Daughter present. Skin: Positive: Warm, Dry Head/Face: Positive: Normal Head/Face Inspection Eyes: Positive: Normal, EOMI, MAGIGE, Conjunctiva Clear ENT: Positive: TMs normal Neck: Positive: Supple. Negative: Nuchal Rigidity Respiratory/Lung Sounds: Positive: Clear to Auscultation, Breath Sounds Present Cardiovascular: Positive: Normal, RRR Abdomen Description: Positive: Nontender, Soft Musculoskeletal: Positive: Normal, Strength/ROM Intact Neurological: Positive: Normal, Alert, Oriented to Person Place, Time, CN Intact II-III, Finger to Nose - normal, Facial Symmetry, Speech Normal. Negative: Facial Droop, Slurred Speech, Pronator Drift Present Psychiatric: Positive: Affect/Mood Appropriate - [place] Coma Scale Best Eye Response: 4 - Spontaneous Best Motor Response: 6 - Obeys Commands Best Verbal Response: 5 - Oriented Coma Scale Total: 15 Diagnostics - Vital Signs Vital Signs Temp Pulse Resp BP Pulse Ox 09/18/18 14:50 70 29 146/75 93 09/18/18 14:00 68 21 94 09/18/18 13:50 75 22 122/70 93 09/18/18 13:20 63 14 120/84 91 09/18/18 13:19 16 09/18/18 13:15 98.4 F 62 20 120/84 92 - Laboratory Lab Results: Lab Results 09/18/18 09/18/18 09/18/18 Range/Units 14:04 14:04 14:04 WBC 5.8 (3.5-10.8) 10^3/uL RBC 4.46 (3.70-4.87) 10^6 /uL Hgb 13.6 (12.0-16.0) g/dL Hct 41 (35-47) % MCV 93 (80-97) fL MCH 30 (27-31) pg MCHC 33 (31-36) g/dL RDW 16 H (10.5-15) % Plt Count 128 L (150-450) 10^3/uL MPV 8.0 (7.4-10.4) fL Neut % (Auto) 87.2 % Lymph % (Auto) 5.7 % [place] % (Auto) 5.2 % Eos % (Auto) 1.4 % Baso % (Auto) 0.5 % Absolute Neuts (auto) 5.0 (1.5-7.7) 10^3/ul Absolute Lymphs (auto) 0.3 L (1.0-4.8) 10^3/ul Absolute Monos (auto) 0.3 (0-0.8) 10^3/ul Absolute Eos (auto) 0.1 (0-0.6) 10^3/ul Absolute Basos (auto) 0.0 (0-0.2) 10^3/ul Absolute Nucleated RBC 0.0 10^3/ul Nucleated RBC % 0.0 Sodium 136 (135-145) mmol/L Potassium 4.4 (3.5-5.0) mmol/L Chloride 105 (101-111) mmol/L Carbon Dioxide 23 (22-32) mmol/L Anion Gap 8 (2-11) mmol/L BUN 25 H (6-24) mg/dL Creatinine 1.20 H (0.51-0.95) mg/dL Est GFR ( Amer) 53.4 (>60) Est GFR (Non-Af Amer) 44.2 (>60) BUN/Creatinine Ratio 20.8 H (8-20) Glucose 147 H (70-100) mg/dL Lactic Acid 1.8 (0.5-2.0) mmol/L Calcium 9.1 (8.6-10.3) mg/dL Magnesium 1.5 L (1.9-2.7) mg/dL Total Bilirubin 1.10 H (0.2-1.0) mg/dL AST 8 L (13-39) U/L ALT 5 L (7-52) U/L Alkaline Phosphatase 68 (34-104) U/L Troponin I 0.04 H* (<0.04) ng/mL Total Protein 6.8 (6.4-8.9) g/dL Albumin 3.7 (3.2-5.2) g/dL Globulin 3.1 (2-4) g/dL Albumin/Globulin Ratio 1.2 (1-3) TSH 3.33 (0.34-5.60) mcIU/mL Result Diagrams: 09/18/18 14:04 09/18/18 14:04 Lab Statement: Any lab studies that have been ordered have been reviewed, and results considered in the medical decision making process. - Radiology chest x-ray Radiology Interpretation Completed By: ED Physician - Increased right-sided pleural effusion with possible CHF versus infiltrate - EKG 1 Cardiac Rate: NL EKG Rhythm: Atrial Fibrillation ST Segment: Non-Specific Ectopy: None Dizzy Course/Dx - Course Course Of Treatment: Patient presenting with dizziness. She is no neurological deficits. She is afebrile stable vital signs. Patient states she's had dizziness before but not this severity. EKG done at 1403 shows likely afib at a rate of 72bpm, left axis deviation, LBBB, no STEMI, unchanged from prior tracing. Pt. started on IV fluids and meclizine. CT brain shows chronic change without acute findings per radiology. Labs unremarkable other than minimally elevated troponin at 0.04 and low mag of 1.5. Pt. given 2g IV magnesium. Will repeat trop in 3 hours. Pt. starting to feel better and is asking for food and to go home. Repeat troponin 0.04. Troponin has been elevated on pt.'s labs in the past and seems to be baseline. Pt. has had no complaints of CP or SOB. Case discussed with Dr. Garza and he recommends dc home. On re-exam at 1805 pt. sleeping with O2 (she wears at night.) Pt. states her dizziness has resolved. Will ambulate and dc home. Pt. and daughter comfortable with dc. To f.u with pcp on friday and return to ER if sxs change or worsen. Assessment/Plan: Patient dropped her O2 sats when walking on attempted discharge. She is not normally on oxygen and dropped her O2 sats to 74%. X- ray was obtained which showed enlarged pleural effusion. BNP is pending. Discussed with the hospitalist service who will admit for further. IV Lasix given. - Diagnoses Differential Diagnosis/HQI/PQRI: Anxiety, Benign Paroxysmal Positional Vertigo, Coronary Artery Disease, CVA, Dysrhythmia, Labyrinthitis, Meniere's Disease, Medication Reaction, Metabolic Abnormality, Myocardial Infarction Provider Diagnoses: Vertigo, Hypomagnesemia, Pleural effusion, CHF (congestive heart failure) Discharge - Sign-Out/Discharge Documenting (check all that apply): Patient Departure Patient Received Moderate/Deep Sedation with Procedure: No - Discharge Plan Condition: Fair Disposition: ADMITTED TO [facility] Patient Education Materials: Vertigo (ED), Hypomagnesemia (ED) Referrals: Morgan Mccarthy MD [Primary Care Provider] - Additional Instructions: Follow up with your PCP on Friday Return to ER if symptoms change or worsen - Billing Disposition and Condition Condition: FAIR Disposition: Admitted to [facility]
[2018-09-18] MEDS ORDERED: Magnesium Sulfate 2 GM IV* 2 GM/50 ML BAG IVPB ONE (16:14)
[2018-09-18] MEDS ORDERED: Nicotine PATCH 21 MG/24 HR* PATCH TRANSDERM ONE (16:16)
[2018-09-18 17:13] LABS: Urine Appearance Clear; Urine Bacteria Absent (Absent); Urine Bilirubin Negative (Negative); Urine Blood 1+ (Negative); Urine Color Straw; Urine Glucose Negative (Negative); Urine Ketones Negative (Negative); Urine Nitrite Negative (Negative); Urine Protein Negative (Negative); Urine Red Blood Cell 1+(3-5/hpf) (Absent); Urine Specific Gravity 1.005 (1.010-1.030); Urine Urobilinogen Negative (Negative); Urine White Blood Cell Absent (Absent)
[2018-09-18 17:41] LABS: Troponin I 0.04 ng/mL (<0.04)
[2018-09-18] MEDS ORDERED: Furosemide IV* 10 MG/ML VIAL (40 MG) IV ONE (18:49)
[2018-09-18] MEDS ORDERED: Magnesium Sulfate 1 GM IV* 1 GM/100 ML BAG IV ONE (21:01)
[2018-09-18] MEDS ORDERED: Albuterol 2.5 MG/3 ML NEB.SOL* (0.083%) INH PRN (21:05)
[2018-09-18 21:50] LABS: Troponin I 0.05 ng/mL (<0.04)
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
[2018-09-19 01:05] LABS: Troponin I 0.04 ng/mL (<0.04)
[2018-09-19 06:38] LABS: ABS Eosinophils 0.1 10^3/ul (0-0.6); ABS Lymphocytes 0.4 10^3/ul (1.0-4.8); ABS Monocytes 0.3 10^3/ul (0-0.8); ABS Neutrophils 5.1 10^3/ul (1.5-7.7); Eosinophil % 2.2 %; Hematocrit 42 % (35-47); Hemoglobin 13.9 g/dL (12.0-16.0); Lymphocyte % 6.8 %; Mean Corpuscular HGB Conc 33 g/dL (31-36); Mean Corpuscular Hemoglobin 31 pg (27-31); Mean Corpuscular Volume 92 fL (80-97); Mean Platelet Volume 7.9 fL (7.4-10.4); Nucleated Red Blood Cells % 0.1; Platelet Count 126 10^3/uL (150-450); Red Blood Count 4.54 10^6 /uL (3.70-4.87); Red Cell Distribution Width 16 % (10.5-15); White Blood Count 6.1 10^3/uL (3.5-10.8)
[2018-09-19 06:54] LABS: BUN/Creatinine Ratio 21.8 (8-20); Calcium 9.3 mg/dL (8.6-10.3); EGFR Non-African American 36.4 (>60); Magnesium 2.1 mg/dL (1.9-2.7); Potassium 4.1 mmol/L (3.5-5.0)
[2018-09-19] MEDS: Mometasone/Formoter 200/5 MDI INH SCH ×2 (08:11→19:30)
[2018-09-19] MEDS: NFT: Umeclidinium 62.5 MDI(NF) MDI INH SCH (08:11)
[2018-09-19] MEDS: Rivaroxaban TAB(*) 15 MG PO SCH (08:26)
[2018-09-19] MEDS: Pantoprazole TAB * 40 MG TAB PO SCH ×2 (08:26→20:59)
[2018-09-19] MEDS: Citalopram TAB* 20 MG PO SCH ×2 (08:26→20:59)
[2018-09-19] MEDS: Cholestyramine Resin* 4 GM POWDER PO SCH (08:27)
[2018-09-19] MEDS ORDERED: Diltiazem CD CAP* 120 MG PO SCH (09:00)
[2018-09-19] MEDS ORDERED: Atenolol TAB* 25 MG PO SCH (09:00)
--- NOTE | 2018-09-19 19:07 | PN ---
Subjective Date of Service: 09/19/18 Interval History: Dizziness improved.But was ambulated with PT.Sats dropped to 75.Also noted to be bradycardic Objective Active Medications: Acetaminophen (Tylenol Tab*) 650 mg PO Q4H PRN PRN Reason: FEVER/PAIN Albuterol (Ventolin 2.5 Mg/3 Ml Neb.Cherie*) 2.5 mg INH RT.[id number] AWAKE PRN PRN Reason: sob/wheezing Atenolol (Tenormin Tab*) 50 mg PO BID [facility] Cholestyramine Resin (Questran*) 4 gm PO DAILY [facility] Last Admin: 09/19/18 08:27 Dose: 4 gm Citalopram Hydrobromide (Celexa Tab*) 20 mg PO BID [facility] Last Admin: 09/19/18 08:26 Dose: 20 mg Mometasone Furoate/Formoterol Fumar (Dulera 200/5 Mdi*) 2 puff INH BID [facility]; Protocol Last Admin: 09/19/18 08:11 Dose: 2 puff Pantoprazole Sodium (Protonix Tab*) 40 mg PO BID [facility] Last Admin: 09/19/18 08:26 Dose: 40 mg Rivaroxaban (Xarelto(*)) 15 mg PO DAILY [facility] Last Admin: 09/19/18 08:26 Dose: 15 mg Umeclidinium [place] (Incruse Ellipta Mdi (Nf)) 1 inh INH DAILY [facility] Last Admin: 09/19/18 08:11 Dose: Not Given Vital Signs - 8 hr 09/19/18 09/19/18 11:35 15:14 Temperature 97.2 F 96.4 F Pulse Rate 134 71 Respiratory 20 16 Rate Blood Pressure 120/57 100/56 (mmHg) O2 Sat by Pulse 95 98 Oximetry Oxygen Devices in Use Now: Nasal Cannula, CPAP Eyes: No Scleral Icterus Neck: NL Appearance and Movements; NL JVP Respiratory: Symmetrical Chest Expansion and Respiratory Effort Cardiovascular: - - irregularly irregular Extremities: No Edema Neurological: Alert and Oriented x 3 Result Diagrams: 09/19/18 06:15 09/19/18 06:15 Additional Lab and Data: Lab Results 09/18/18 09/18/18 09/18/18 Range/Units 14:04 14:04 14:04 WBC 5.8 (3.5-10.8) 10^3/uL RBC 4.46 (3.70-4.87) 10^6 /uL Hgb 13.6 (12.0-16.0) g/dL Hct 41 (35-47) % MCV 93 (80-97) fL MCH 30 (27-31) pg MCHC 33 (31-36) g/dL RDW 16 H (10.5-15) % Plt Count 128 L (150-450) 10^3/uL MPV 8.0 (7.4-10.4) fL Neut % (Auto) 87.2 % Lymph % (Auto) 5.7 % [place] % (Auto) 5.2 % Eos % (Auto) 1.4 % Baso % (Auto) 0.5 % Absolute Neuts (auto) 5.0 (1.5-7.7) 10^3/ul Absolute Lymphs (auto) 0.3 L (1.0-4.8) 10^3/ul Absolute Monos (auto) 0.3 (0-0.8) 10^3/ul Absolute Eos (auto) 0.1 (0-0.6) 10^3/ul Absolute Basos (auto) 0.0 (0-0.2) 10^3/ul Absolute Nucleated RBC 0.0 10^3/ul Nucleated RBC % 0.0 Sodium 136 (135-145) mmol/L Potassium 4.4 (3.5-5.0) mmol/L Chloride 105 (101-111) mmol/L Carbon Dioxide 23 (22-32) mmol/L Anion Gap 8 (2-11) mmol/L BUN 25 H (6-24) mg/dL Creatinine 1.20 H (0.51-0.95) mg/dL Est GFR ( Amer) 53.4 (>60) Est GFR (Non-Af Amer) 44.2 (>60) BUN/Creatinine Ratio 20.8 H (8-20) Glucose 147 H (70-100) mg/dL Lactic Acid 1.8 (0.5-2.0) mmol/L Calcium 9.1 (8.6-10.3) mg/dL Magnesium 1.5 L (1.9-2.7) mg/dL Total Bilirubin 1.10 H (0.2-1.0) mg/dL AST 8 L (13-39) U/L ALT 5 L (7-52) U/L Alkaline Phosphatase 68 (34-104) U/L Troponin I 0.04 H* (<0.04) ng/mL Total Protein 6.8 (6.4-8.9) g/dL Albumin 3.7 (3.2-5.2) g/dL Globulin 3.1 (2-4) g/dL Albumin/Globulin Ratio 1.2 (1-3) TSH 3.33 (0.34-5.60) mcIU/mL Microbiology and Other Data: Microbiology 09/18/18 21:33 Nasal Screen MRSA (PCR) - Final Nasal Mrsa Not Detected Assess/Plan/Problems-Billing Assessment: - Patient Problems (1) Dizziness Current Visit: Yes Status: Acute Code(s): R42 - DIZZINESS AND GIDDINESS SNOMED Code(s): 776916912 Comment: Improved MRI neg for stroke Could be related to Bradycardia Monitor on Tele (2) COPD (chronic obstructive pulmonary disease) Current Visit: Yes Status: Acute Code(s): J44.9 - CHRONIC OBSTRUCTIVE PULMONARY DISEASE, UNSPECIFIED SNOMED Code(s): 78143366 Comment: continue current meds (3) Atrial fibrillation Current Visit: Yes Status: Acute Code(s): I48.91 - UNSPECIFIED ATRIAL FIBRILLATION SNOMED Code(s): 36284609 Comment: on xarelto on both diltiazem and atenol for rate control Bradycardic today with hypoxia on ambulation Will stop Cardizem and continue B jigna at this time Will eval for Tachy Tashi syndrome (4) CHF (congestive heart failure) Current Visit: Yes Status: Acute Code(s): I50.9 - HEART FAILURE, UNSPECIFIED SNOMED Code(s): 07508611 Comment: Recd 40 mg lasix on cpap at night and does not wear oxygen on ambulation usually.Desat to 75% on RA Recd 40 mg iv lasix repeat cxr in am Poss pneumonia? if opacity still there, consider CT to r/o malignancy Echo ordered to eval further (5) CLINICAL TRIALS SYSTEMS ADMINISTRATOR (ventriculoperitoneal) shunt status Current Visit: No Status: Acute Comment: -Prior cerebral aneurysm -Stable -Seen by neuro
[2018-09-19] MEDS: Atenolol TAB* 50 MG PO SCH (20:59)
[2018-09-20 04:52] LABS: ABS Eosinophils 0.1 10^3/ul (0-0.6); ABS Lymphocytes 0.5 10^3/ul (1.0-4.8); ABS Monocytes 0.4 10^3/ul (0-0.8); Eosinophil % 2.1 %; Hematocrit 40 % (35-47); Hemoglobin 12.9 g/dL (12.0-16.0); Lymphocyte % 8.9 %; Mean Corpuscular HGB Conc 32 g/dL (31-36); Mean Corpuscular Hemoglobin 30 pg (27-31); Mean Corpuscular Volume 93 fL (80-97); Mean Platelet Volume 7.8 fL (7.4-10.4); Nucleated Red Blood Cells % 0.1; Platelet Count 126 10^3/uL (150-450); Red Cell Distribution Width 16 % (10.5-15); White Blood Count 6.1 10^3/uL (3.5-10.8)
[2018-09-20 05:03] LABS: BUN/Creatinine Ratio 28.9 (8-20); Calcium 9.1 mg/dL (8.6-10.3); EGFR African American 46.6 (>60); EGFR Non-African American 38.5 (>60); Potassium 3.9 mmol/L (3.5-5.0)
[2018-09-20] MEDS: NFT: Umeclidinium 62.5 MDI(NF) MDI INH SCH (07:54)
[2018-09-20] MEDS: Mometasone/Formoter 200/5 MDI INH SCH ×2 (07:57→19:56)
[2018-09-20] MEDS: Rivaroxaban TAB(*) 15 MG PO SCH (08:52)
[2018-09-20] MEDS: Pantoprazole TAB * 40 MG TAB PO SCH ×2 (08:52→20:15)
[2018-09-20] MEDS: Citalopram TAB* 20 MG PO SCH ×2 (08:52→20:15)
[2018-09-20] MEDS: Cholestyramine Resin* 4 GM POWDER PO SCH (08:52)
[2018-09-20] MEDS: Furosemide IV* 10 MG/ML VIAL (40 MG) IV SCH (09:33)
[2018-09-20] MEDS: Atenolol TAB* 50 MG PO SCH (09:38)
[2018-09-20 11:45] LABS: Urine Appearance Cloudy; Urine Bacteria Absent (Absent); Urine Bilirubin Negative (Negative); Urine Blood 1+ (Negative); Urine Color Yellow; Urine Glucose Negative (Negative); Urine Ketones Negative (Negative); Urine Nitrite Negative (Negative); Urine Protein Negative (Negative); Urine Red Blood Cell Trace(0-2/hpf) (Absent); Urine Specific Gravity 1.014 (1.010-1.030); Urine Squamous Epithelial Cell Present (Absent); Urine Urobilinogen Negative (Negative); Urine White Blood Cell Trace(0-5/hpf) (Absent)
--- NOTE | 2018-09-20 14:48 | PN ---
Subjective Date of Service: 09/20/18 Interval History: 3 sec pauses overnight on telemetry.Pt anxious to go home however unable to come off oxygen.Sat 75% off o2 yesterday on ambulation and pauses.Dizziness better Objective Active Medications: Acetaminophen (Tylenol Tab*) 650 mg PO Q4H PRN PRN Reason: FEVER/PAIN Albuterol (Ventolin 2.5 Mg/3 Ml Neb.Cherie*) 2.5 mg INH RT.[id number] AWAKE PRN PRN Reason: sob/wheezing Atenolol (Tenormin Tab*) 25 mg PO DAILY [facility] Cholestyramine Resin (Questran*) 4 gm PO DAILY [facility] Last Admin: 09/20/18 08:52 Dose: 4 gm Citalopram Hydrobromide (Celexa Tab*) 20 mg PO BID [facility] Last Admin: 09/20/18 08:52 Dose: 20 mg Furosemide (Lasix Iv*) 40 mg IV DAILY [facility] Last Admin: 09/20/18 09:33 Dose: 40 mg Mometasone Furoate/Formoterol Fumar (Dulera 200/5 Mdi*) 2 puff INH BID [facility]; Protocol Last Admin: 09/20/18 07:57 Dose: 2 puff Pantoprazole Sodium (Protonix Tab*) 40 mg PO BID [facility] Last Admin: 09/20/18 08:52 Dose: 40 mg Rivaroxaban (Xarelto(*)) 15 mg PO DAILY [facility] Last Admin: 09/20/18 08:52 Dose: 15 mg Umeclidinium [place] (Incruse Ellipta Mdi (Nf)) 1 inh INH DAILY [facility] Last Admin: 09/20/18 07:54 Dose: Not Given Vital Signs - 8 hr 09/20/18 09/20/18 09/20/18 07:55 07:59 08:00 Temperature 98.0 F Pulse Rate 88 59 Respiratory 16 20 20 Rate Blood Pressure 125/61 (mmHg) O2 Sat by Pulse 95 93 Oximetry 09/20/18 11:12 Temperature 98.6 F Pulse Rate 80 Respiratory 28 Rate Blood Pressure 113/79 (mmHg) O2 Sat by Pulse 96 Oximetry Oxygen Devices in Use Now: Nasal Cannula Eyes: No Scleral Icterus Neck: NL Appearance and Movements; NL JVP Respiratory: Symmetrical Chest Expansion and Respiratory Effort, Clear to Auscultation Cardiovascular: NL Sounds; No Murmurs; No JVD, - - irreg irreg Neurological: Alert and Oriented x 3 Result Diagrams: 09/20/18 04:28 09/20/18 04:28 Additional Lab and Data: Lab Results 09/18/18 09/18/18 09/18/18 Range/Units 14:04 14:04 14:04 WBC 5.8 (3.5-10.8) 10^3/uL RBC 4.46 (3.70-4.87) 10^6 /uL Hgb 13.6 (12.0-16.0) g/dL Hct 41 (35-47) % MCV 93 (80-97) fL MCH 30 (27-31) pg MCHC 33 (31-36) g/dL RDW 16 H (10.5-15) % Plt Count 128 L (150-450) 10^3/uL MPV 8.0 (7.4-10.4) fL Neut % (Auto) 87.2 % Lymph % (Auto) 5.7 % [place] % (Auto) 5.2 % Eos % (Auto) 1.4 % Baso % (Auto) 0.5 % Absolute Neuts (auto) 5.0 (1.5-7.7) 10^3/ul Absolute Lymphs (auto) 0.3 L (1.0-4.8) 10^3/ul Absolute Monos (auto) 0.3 (0-0.8) 10^3/ul Absolute Eos (auto) 0.1 (0-0.6) 10^3/ul Absolute Basos (auto) 0.0 (0-0.2) 10^3/ul Absolute Nucleated RBC 0.0 10^3/ul Nucleated RBC % 0.0 Sodium 136 (135-145) mmol/L Potassium 4.4 (3.5-5.0) mmol/L Chloride 105 (101-111) mmol/L Carbon Dioxide 23 (22-32) mmol/L Anion Gap 8 (2-11) mmol/L BUN 25 H (6-24) mg/dL Creatinine 1.20 H (0.51-0.95) mg/dL Est GFR ( Amer) 53.4 (>60) Est GFR (Non-Af Amer) 44.2 (>60) BUN/Creatinine Ratio 20.8 H (8-20) Glucose 147 H (70-100) mg/dL Lactic Acid 1.8 (0.5-2.0) mmol/L Calcium 9.1 (8.6-10.3) mg/dL Magnesium 1.5 L (1.9-2.7) mg/dL Total Bilirubin 1.10 H (0.2-1.0) mg/dL AST 8 L (13-39) U/L ALT 5 L (7-52) U/L Alkaline Phosphatase 68 (34-104) U/L Troponin I 0.04 H* (<0.04) ng/mL Total Protein 6.8 (6.4-8.9) g/dL Albumin 3.7 (3.2-5.2) g/dL Globulin 3.1 (2-4) g/dL Albumin/Globulin Ratio 1.2 (1-3) TSH 3.33 (0.34-5.60) mcIU/mL Microbiology and Other Data: Microbiology 09/18/18 21:33 Nasal Screen MRSA (PCR) - Final Nasal Mrsa Not Detected Assess/Plan/Problems-Billing Assessment: - Patient Problems (1) Dizziness Current Visit: Yes Status: Acute Code(s): R42 - DIZZINESS AND GIDDINESS SNOMED Code(s): 705422585 Comment: Improved MRI neg for stroke Likely related to Bradycardia Monitor on Tele (2) Bradycardia Current Visit: Yes Status: Acute Code(s): R00.1 - BRADYCARDIA, UNSPECIFIED SNOMED Code(s): 71381555 Comment: pauses 3 sec this am Cardizem XL held yesterday Atenolol holding this am and will restart at 25 mg from tomorrow poss sick sinus d/w cardiology as just adjusted meds will wait 24h to 48 h and eval on tele will consult cardiology if ongoing despite med adjustment (3) Atrial fibrillation Current Visit: Yes Status: Acute Code(s): I48.91 - UNSPECIFIED ATRIAL FIBRILLATION SNOMED Code(s): 42403635 Comment: on xarelto on both diltiazem and atenol for rate control Bradycardic today with hypoxia on ambulation Cardizem stoppd yesterday as pt bradycardic XL and holding B jigna today. Will adjust dose and restart on 1/2 dose of atenol 25 mg dailty and monitor Will eval for Tachy Tashi syndrome (4) COPD (chronic obstructive pulmonary disease) Current Visit: Yes Status: Acute Code(s): J44.9 - CHRONIC OBSTRUCTIVE PULMONARY DISEASE, UNSPECIFIED SNOMED Code(s): 62944232 Comment: continue current meds (5) CHF (congestive heart failure) Current Visit: Yes Status: Acute Code(s): I50.9 - HEART FAILURE, UNSPECIFIED SNOMED Code(s): 68346796 Comment: Recd 40 mg lasix on cpap at night and does not wear oxygen on ambulation usually.Desat to 75% on RA Recd 40 mg iv lasix repeat cxr shows effusion improving Continue lasix everyday Echo ordered to eval further (6) TRIMMING CASER (ventriculoperitoneal) shunt status Current Visit: No Status: Acute Comment: -Prior cerebral aneurysm -Stable -Seen by neuro (7) Dyspnea Current Visit: Yes Status: Acute Code(s): R06.00 - DYSPNEA, UNSPECIFIED SNOMED Code(s): 993636756 Status and Disposition: treating for chf,pleural effusion sats low without oxygen R density persistent Will get CT to eval and r/o mass and to r/o loculated effusion Will eval if pt needs a thoracentesis
[2018-09-21 05:53] LABS: ABS Eosinophils 0.1 10^3/ul (0-0.6); ABS Lymphocytes 0.5 10^3/ul (1.0-4.8); ABS Monocytes 0.4 10^3/ul (0-0.8); ABS Neutrophils 5.3 10^3/ul (1.5-7.7); Hematocrit 40 % (35-47); Hemoglobin 13.4 g/dL (12.0-16.0); Mean Corpuscular HGB Conc 33 g/dL (31-36); Mean Corpuscular Hemoglobin 31 pg (27-31); Mean Corpuscular Volume 92 fL (80-97); Mean Platelet Volume 7.7 fL (7.4-10.4); Nucleated Red Blood Cells % 0.1; Platelet Count 127 10^3/uL (150-450); Red Blood Count 4.37 10^6 /uL (3.70-4.87); Red Cell Distribution Width 16 % (10.5-15); White Blood Count 6.3 10^3/uL (3.5-10.8)
[2018-09-21 06:10] LABS: BUN/Creatinine Ratio 31.3 (8-20); Calcium 9.5 mg/dL (8.6-10.3); EGFR Non-African American 38.9 (>60); Potassium 3.9 mmol/L (3.5-5.0)
[2018-09-21] MEDS: Furosemide IV* 10 MG/ML VIAL (40 MG) IV SCH (08:22)
[2018-09-21] MEDS: Rivaroxaban TAB(*) 15 MG PO SCH (08:24)
[2018-09-21] MEDS: Atenolol TAB* 25 MG PO SCH (08:24)
[2018-09-21] MEDS: Citalopram TAB* 20 MG PO SCH ×2 (08:24→21:07)
[2018-09-21] MEDS: Pantoprazole TAB * 40 MG TAB PO SCH ×2 (08:24→21:07)
[2018-09-21] MEDS: Cholestyramine Resin* 4 GM POWDER PO SCH (08:25)
[2018-09-21] MEDS: NFT: Umeclidinium 62.5 MDI(NF) MDI INH SCH (08:27)
[2018-09-21] MEDS: Mometasone/Formoter 200/5 MDI INH SCH ×2 (10:14→20:10)
--- NOTE | 2018-09-21 11:35 | ECHO ---
*[facility]* [place] [address] Fax #: [phone] Transthoracic Echocardiogram Patient: Ashlee, Height: 62 in / Litzy Carbajal 157.5 cm : 1945 Weight: 182.6 lb / Study Date: 09/21/2018 83 kg Age: 72 BP: 125 / 73 Gender: F BMI/BSA: 33.5 kg/m^2 HR: 74 bpm / 1.94 m^2 *Cloth Hauler: * Jayna Mobley [facility] *Referring Physician: * Jaqueline Block *Reading Physician: * Sukumar Meza MD Indications: SOB. History: Cerebral anuerysm. Renal disease. Chronic obstructive pulmonary disease. Risk factors: Current tobacco use. Diabetes mellitus. Dyslipidemia. Conclusions Summary: 1. Left ventricle: The cavity size is mildly reduced. Wall thickness is moderately to severely increased. Systolic function is normal. The estimated ejection fraction is 60-65%. There is mild dynamic obstruction. Wall motion is normal; there are no regional wall motion abnormalities. 2. Left atrium: The atrium is severely dilated. 3. Mitral valve: The annulus is moderately to severely calcified. The leaflets are mildly thickened. There is no significant regurgitation. 4. Aortic valve: There is no evidence of stenosis. 5. Tricuspid valve: There is moderate-severe regurgitation. 6. Pulmonary arteries: The peak pressure during systole by Doppler is 60.0 mm Hg. 7. Compared to 04/10/17 there is no significant change. Study data: Transthoracic echocardiogram. Procedure: Transthoracic echocardiography was performed. Image quality was good. Complete 2D, spectral Doppler, and color flow Doppler. Location: Bedside. Patient status: Inpatient. Patient room number: 433. Rhythm: Atrial fibrillation. Findings Left ventricle: The cavity size is mildly reduced. Wall thickness is moderately to severely increased. Systolic function is normal. The estimated ejection fraction is 60-65%. There is mild dynamic obstruction. Wall motion is normal; there are no regional wall motion abnormalities. Left ventricular diastolic function parameters are indeterminate. Right ventricle: The cavity size is normal. Wall thickness is mildly increased. Systolic function is normal. Systolic pressure is severely increased. Left atrium: The atrium is severely dilated. Right atrium: The atrium is mildly to moderately dilated. Mitral valve: The annulus is moderately to severely calcified. The leaflets are mildly thickened. The findings are consistent with mild stenosis. There is no significant regurgitation. Aortic valve: The valve is trileaflet. The leaflets are mildly thickened. There is no evidence of stenosis. There is no significant regurgitation. Tricuspid valve: The leaflets are mildly thickened. There is no evidence of stenosis. There is moderate-severe regurgitation. Pulmonic valve: Not well visualized. There is no evidence of stenosis. There is no significant regurgitation. Aorta: Aortic arch: The aortic arch is appears normal. The aortic root is not dilated. Pericardium: There is no significant pericardial effusion. Pulmonary arteries: Not well visualized. Systemic veins: Inferior vena cava: The vessel is dilated. The respirophasic diameter changes are blunted (< 50%). Measurements Left ventricle Value Ref Mitral valve Value Ref KATELYN, LAX (L) 3.6 cm 3.8 - 5.2 Peak E 1.49 m/sec ----- ESD, LAX 2.8 cm 2.2 - 3.5 Peak A 0.02 m/sec ----- FS, LAX (L) 24 % 27 - 45 VTI leaflet coapt 37.4 cm ----- PW, ED, LAX (H) 1.7 cm 0.6 - 0.9 Decel time 149 ms ----- EF (L) 48 % 54 - 74 PHT 83 ms ----- E', lat nasrin, TDI (L) 5.7 cm/sec >=10.0 Mean grad, D 3.4 mm Hg --- -- E/e', lat nasrin, 27 Peak grad, D 9.5 mm Hg ----- TDI Peak E/A ratio 65.93 ----- MVA, PHT 2.6 cm^2 ----- LVOT Value Ref Peak chun, S 1.09 m/sec Tricuspid valve Value Ref Peak grad, S 5 mm Hg TR peak v (H) 3.6 m/sec <=2.8 Peak RV-RA grad, S 52 mm Hg ----- Ventricular septum Value Ref IVS, ED (H) 1.7 cm 0.6 - 0.9 Aortic root Value Ref Root diam 3.3 cm <4.1 Right ventricle Value Ref KATELYN, LAX 4.0 cm Ascending aorta Value Ref KATELYN major ax, A4C (L) 3.2 cm 5.9 - 8.3 AAo AP diam, S 3.4 cm ----- Pressure, S 60 mm Hg Aortic arch Value Ref Left atrium Value Ref Arch diam 3.3 cm ----- AP dim, ES (H) 5.10 cm 2.70 - 3.80 Decending aorta Value Ref ML dim, A4C 5.7 cm Konrad peak chun 0.43 m/sec ----- SI dim, A4C 7.9 cm Vol/bsa, ES, 2-p (H) 71 ml/m^2 16 - 34 Pulmonary artery Value Ref Pressure, S 60.0 mm Hg ----- Right atrium Value Ref SI dim, ES (H) 5.6 cm 3.4 - 5.3 Inferior vena cava Value Ref ML dim, ES, A4C 4.2 cm 2.6 - 4.4 Diam 2.2 cm ----- Estimated RAP 8 mm Hg Aortic valve Value Ref Nasrin diam, ED 2.1 cm Peak v, S 1.08 m/sec Peak grad, S 4.6 mm Hg Legend: (L) and (H) ubaldo values outside specified reference range. Prepared and electronically signed by Sukumar Meza MD 09/21/2018 11:35
[2018-09-21] MEDS ORDERED: Furosemide IV* 10 MG/ML 2 ML VIAL (20 MG) IV ONE (12:27)
--- NOTE | 2018-09-21 12:33 | PN ---
Subjective Date of Service: 09/21/18 Interval History: Ms. Rosado is feeling better today. She c/o some SOB, but improved from yesterday. Worse with exertion, but has not been up ambulating much. Denies CP. Anxious to go home. Remains on 4L NC. She typically only uses oxygen with her CPAP at night. Good appetite. Denies N/V, dizziness. Nursing reports minor epistaxis. Humidification added to oxygen. Tele: afib in the 80s. No bradycardia overnight, but she did have three pauses - the longest of which was 3 seconds. Family History: Unchanged from Admission Social History: Unchanged from Admission Past Medical History: Unchanged from Admission Objective Active Medications: Acetaminophen (Tylenol Tab*) 650 mg PO Q4H PRN FEVER/PAIN Albuterol (Ventolin 2.5 Mg/3 Ml Neb.Cherie*) 2.5 mg INH [id number] AWAKE PRN sob/wheezing Atenolol (Tenormin Tab*) 25 mg PO DAILY KEYA Cholestyramine Resin (Questran*) 4 gm PO DAILY KEYA Citalopram Hydrobromide (Celexa Tab*) 20 mg PO BID KEYA Furosemide (Lasix Iv*) 40 mg IV DAILY KEYA Mometasone Furoate/Formoterol Fumar (Dulera 200/5 Mdi*) 2 puff INH BID KEYA; Protocol Pantoprazole Sodium (Protonix Tab*) 40 mg PO BID KEYA Rivaroxaban (Xarelto(*)) 15 mg PO DAILY KEYA Umeclidinium [place] (Incruse Ellipta Mdi (Nf)) 1 inh INH DAILY [facility] Vital Signs - 8 hr 09/21/18 09/21/18 09/21/18 07:40 08:00 10:15 Temperature 97.9 F Pulse Rate 54 54 Respiratory 20 17 17 Rate Blood Pressure 125/73 (mmHg) O2 Sat by Pulse 94 94 Oximetry Oxygen Devices in Use Now: Nasal Cannula - 4L Appearance: Elderly female sitting in chair in NAD Eyes: No Scleral Icterus Ears/Nose/Mouth/Throat: Mucous Membranes Moist Neck: NL Appearance and Movements; NL JVP, Trachea Midline Respiratory: Symmetrical Chest Expansion and Respiratory Effort, - - Fine crackles to bilat bases, otherwise diminished Cardiovascular: NL Sounds; No Murmurs; No JVD, - - Irregular rhythm Abdominal: NL Sounds; No Tenderness; No Distention Extremities: - - +1 pitting BLE Skin: - - Dry flaking skin BLE Neurological: Alert and Oriented x 3, NL Sensation Lines/Tubes/Other Access: Clean, Dry and Intact Peripheral IV Nutrition: Taking PO's Result Diagrams: 09/21/18 05:15 09/21/18 05:15 Assess/Plan/Problems-Billing Assessment: Ms. Rosado is a 72 yo F with PMH of DM, HTN, afib, seizures, and COPD; who presented to the ED with c/o dizziness and was found to be hypoxic. - Patient Problems (1) Acute congestive heart failure Code(s): I50.9 - HEART FAILURE, UNSPECIFIED Comment: - Secondary to bradycardia - Echo shows EF 60-65%, no evidence of diastolic dysfunction - CT chest shows large RLL pleural effusion, but no loculation so will hold off on thoracentesis at this point - Continue furosemide, atenolol (2) Bradycardia Code(s): R00.1 - BRADYCARDIA, UNSPECIFIED Comment: - Frequent pauses up to 3 seconds noted on tele - Cardizem XL held and atenolol decreased from home dose - Possible sick sinus syndrome - Will consult cardiology if ongoing despite med adjustments (3) Acute on chronic respiratory failure with hypoxia Code(s): J96.21 - ACUTE AND CHRONIC RESPIRATORY FAILURE WITH HYPOXIA Comment: - Improving, but still requiring 3L NC to maintain saturations - Typically uses oxygen with CPAP at night - Secondary to CHF - Plan as above (4) Atrial fibrillation Code(s): I48.91 - UNSPECIFIED ATRIAL FIBRILLATION Comment: - Bradycardic on admission, now rate controlled - No evidence of tachycardia on tele to support tachy-sherrie syndrome - Hold diltiazem for bradycardia - Continue atenolol, Xarelto (5) HTN (hypertension) Code(s): I10 - ESSENTIAL (PRIMARY) HYPERTENSION Comment: - Normotensive, SBP 100-120s - Continue atenolol, furosemide (6) COPD (chronic obstructive pulmonary disease) Code(s): J44.9 - CHRONIC OBSTRUCTIVE PULMONARY DISEASE, UNSPECIFIED Comment: - No evidence of exacerbation - Continue Dulera, Spiriva, nebs (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 Anticipate d/c home when medically stable. Attending: Zhane Al
[2018-09-21] MEDS ORDERED: Spiriva Inhaler DEVICE* 1 EACH DEVICE INH ONE (14:00)
[2018-09-21] MEDS: Tiotropium CAP.INH* CAP.INH/18 MCG (USE ORDER SET !) INH SCH (18:55)
[2018-09-21] MEDS: Acetaminophen TAB* 325 MG PO PRN (19:38)
[2018-09-22 05:50] LABS: BUN/Creatinine Ratio 40.6 (8-20); Calcium 10.2 mg/dL (8.6-10.3); EGFR African American 45.5 (>60); EGFR Non-African American 37.6 (>60); Potassium 3.8 mmol/L (3.5-5.0)
[2018-09-22] MEDS: Mometasone/Formoter 200/5 MDI INH SCH ×3 (08:39→20:48)
[2018-09-22] MEDS: Tiotropium CAP.INH* CAP.INH/18 MCG (USE ORDER SET !) INH SCH (08:41)
[2018-09-22] MEDS: Cholestyramine Resin* 4 GM POWDER PO SCH (08:48)
[2018-09-22] MEDS: Citalopram TAB* 20 MG PO SCH ×2 (08:48→20:31)
[2018-09-22] MEDS: Pantoprazole TAB * 40 MG TAB PO SCH ×2 (08:48→20:32)
[2018-09-22] MEDS: Furosemide IV* 10 MG/ML VIAL (40 MG) IV SCH (08:48)
[2018-09-22] MEDS: Atenolol TAB* 25 MG PO SCH (08:48)
[2018-09-22] MEDS: Rivaroxaban TAB(*) 15 MG PO SCH (08:48)
--- NOTE | 2018-09-22 09:20 | PN ---
Subjective Date of Service: 09/22/18 Interval History: Ms. Rosado is feeling fine this morning. She offers no complaints. No SOB or CP. Has not been up ambulating this morning as she just finished breakfast. No further dizziness. She denies any N/V. Good appetite. Frustrated that she is still in the hospital. Long smoking history. Started around age 20 and smoke approx 1/2 PPD. Does not appear particularly motivated to quit. Denies any nicotine cravings at this point. No concerns from nursing. Tele: Afib in the 70-80s with occasional pauses, all under 3 seconds. Family History: Unchanged from Admission Social History: Unchanged from Admission Past Medical History: Unchanged from Admission Objective Active Medications: Acetaminophen (Tylenol Tab*) 650 mg PO Q4H PRN FEVER/PAIN Albuterol (Ventolin 2.5 Mg/3 Ml Neb.Cherie*) 2.5 mg INH [id number] AWAKE PRN sob/wheezing Atenolol (Tenormin Tab*) 25 mg PO DAILY KEYA Cholestyramine Resin (Questran*) 4 gm PO DAILY KEYA Citalopram Hydrobromide (Celexa Tab*) 20 mg PO BID KEYA Furosemide (Lasix Iv*) 40 mg IV DAILY KEYA Mometasone Furoate/Formoterol Fumar (Dulera 200/5 Mdi*) 2 puff INH BID KEYA; Protocol Pantoprazole Sodium (Protonix Tab*) 40 mg PO BID KEYA Tiotropium [place] (Spiriva Cap.Inh*) 1 cap INH DAILY KEYA Vital Signs - 8 hr 09/22/18 09/22/18 09/22/18 03:24 07:46 08:42 Temperature 98.1 F Pulse Rate 56 60 Respiratory 18 20 18 Rate Blood Pressure 122/56 (mmHg) O2 Sat by Pulse 92 92 Oximetry Oxygen Devices in Use Now: Nasal Cannula - 4L Appearance: Elderly female sitting in bed in NAD Eyes: No Scleral Icterus Ears/Nose/Mouth/Throat: Mucous Membranes Moist Neck: NL Appearance and Movements; NL JVP, Trachea Midline Respiratory: Symmetrical Chest Expansion and Respiratory Effort, - - Diminished throughout R>L with fine crackles in bilat bases Cardiovascular: NL Sounds; No Murmurs; No JVD, - - Irregular rhythm Abdominal: NL Sounds; No Tenderness; No Distention Extremities: - - +1 pitting BLE Neurological: Alert and Oriented x 3 Lines/Tubes/Other Access: Clean, Dry and Intact Peripheral IV Nutrition: Taking PO's Result Diagrams: 09/21/18 05:15 09/22/18 05:09 Assess/Plan/Problems-Billing Assessment: Ms. Rosado is a 72 yo F with PMH of DM, HTN, afib, seizures, and COPD; who presented to the ED with c/o dizziness and was found to be hypoxic. - Patient Problems (1) Acute congestive heart failure Code(s): I50.9 - HEART FAILURE, UNSPECIFIED Comment: - Secondary to bradycardia and low cardiac output - Echo shows EF 60-65%, no evidence of diastolic dysfunction - Continue furosemide, atenolol (2) Bradycardia Code(s): R00.1 - BRADYCARDIA, UNSPECIFIED Comment: - Frequent pauses up to 3 seconds noted on tele, but no further bradycardia - Hold diltiazem; will likely NOT resume at d/c - Continue atenolol at decreased dose (3) Acute on chronic respiratory failure with hypoxia Code(s): J96.21 - ACUTE AND CHRONIC RESPIRATORY FAILURE WITH HYPOXIA Comment: - Secondary to CHF and pleural effusion - Still requiring 4L NC to maintain saturations - Typically uses oxygen with CPAP at night - Secondary to CHF and pleural effusion; ? if she will need thoracentesis d/t continued hypoxia despite diuretics - Appreciate Pulmonology consult; will hold Xarelto - Plan as above (4) Atrial fibrillation Code(s): I48.91 - UNSPECIFIED ATRIAL FIBRILLATION Comment: - Bradycardic on admission, now rate controlled - No evidence of tachycardia on tele to support tachy-sherrie syndrome - Hold diltiazem for bradycardia; stop Xarelto for possible thoracentesis - Continue atenolol (5) HTN (hypertension) Code(s): I10 - ESSENTIAL (PRIMARY) HYPERTENSION Comment: - Normotensive, SBP 100-120s - Continue atenolol, furosemide (6) COPD (chronic obstructive pulmonary disease) Code(s): J44.9 - CHRONIC OBSTRUCTIVE PULMONARY DISEASE, UNSPECIFIED Comment: - No evidence of exacerbation - Continue Dulera, Spiriva, nebs (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 Anticipate d/c home when medically stable, timeframe unknown. Attending: Delfina Smith
--- NOTE | 2018-09-22 16:32 | CONSULT ---
Subjective Date of Service: 09/22/18 Interval History: Ms. Rosado is a 72 yo female with PMH significant for COPD, DM2, CKD stage 3, A fib, GERD, HTN, HLD, and seizures who presented to the emergency room with complaints of dizziness. She presented to the hospital with an open area to the right medial lower leg. She states that her PCP Dr. Mccarthy has been treating this wound for awhile, she is unsure how long it has been present, but it is getting smaller and healing. Patient seen and examined at bedside. Family History: Unchanged from Admission Social History: Unchanged from Admission Past Medical History: Unchanged from Admission Review of Systems - Measurements Intake and Output: Intake and Output Last 24 Hours 09/20/18 09/21/18 09/22/18 09/23/18 06:59 06:59 06:59 06:59 Intake Total 860 1520 1320 840 Output Total 0 1270 1700 600 Balance 860 250 -380 240 Weight 180 lb 8 oz Intake: Oral 860 1520 1320 840 Output: Urine 0 1270 1700 600 Other: Estimated Void Small # Bowel Movements 1 Estimated Stool Amount Large # Voids 3 1 4 - Review of Systems Constitutional Symptoms: Negative: Fatigue, Other - Chills Dermatology: Positive: Other - Open area to the medial right LE Endocrinology: Positive: Obesity, Diabetes Mellitus Objective Active Medications: Acetaminophen (Tylenol Tab*) 650 mg PO Q4H PRN Reason: FEVER/PAIN Albuterol (Ventolin 2.5 Mg/3 Ml Neb.Cherie*) 2.5 mg INH [id number] AWAKE PRN Reason: sob/wheezing Atenolol (Tenormin Tab*) 25 mg PO DAILY KEYA Cholestyramine Resin (Questran*) 4 gm PO DAILY KEYA Citalopram Hydrobromide (Celexa Tab*) 20 mg PO BID KEYA Furosemide (Lasix Iv*) 40 mg IV DAILY KEYA Mometasone Furoate/Formoterol Fumar (Dulera 200/5 Mdi*) 2 puff INH BID KEYA; Protocol Pantoprazole Sodium (Protonix Tab*) 40 mg PO BID KEYA Tiotropium [place] (Spiriva Cap.Inh*) 1 cap INH DAILY KEYA Vital Signs - 8 hr 09/22/18 09/22/18 08:42 12:09 Temperature 97.6 F Pulse Rate 60 Respiratory 18 19 Rate Blood Pressure 113/77 (mmHg) O2 Sat by Pulse 92 98 Oximetry Oxygen Devices in Use Now: Nasal Cannula - 4L Appearance: NAD, laying in bed Ears/Nose/Mouth/Throat: Mucous Membranes Moist Respiratory: Symmetrical Chest Expansion and Respiratory Effort Skin: - - See skin note below Neurological: Alert and Oriented x 3 Nutrition: Taking PO's Result Diagrams: 09/24/18 05:20 09/25/18 05:33 Microbiology and Other Data: Microbiology 09/18/18 21:33 Nasal Screen MRSA (PCR) - Final Nasal Mrsa Not Detected Skin Deviation Note - Skin Deviation Findings Right medial lower leg - There is an open area, measuring 1.5 cm x 1 cm x 0.1 cm. The wound base with yellow slough that mostly wiped off with a gauze, There is still some yellow slough and red granulation tissue in the wound base. The surrounding skin is intact. Small amount of serous drainage noted. Assessment/Plan: Ms. Rosado is a 72 yo female with PMH significant for COPD, DM2, CKD stage 3, A fib, GERD, HTN, HLD, and seizures who presented to the emergency room with complaints of dizziness. 1. Suspected Venous ulcer. Recommend washing the leg with soap and water, applying calcium alginate to the open area, gauze, followed by a rolled gauze once daily. Consider a Wound Clinic referral at discharge. Consider obtaining ABIs to evaluate circulation. 2. Diabetes Mellitus, type 2. HgA1C 7.1 in 2017, recommend rechecking a HgA1C if not recently checked by PCP. Maintain good glycemic control to allow wound healing. 3. Diet. Consistent Carb. 4. Code Status. DNR. 5. Disposition. Inpatient, disposition per primary medicine team. TIME SPENT: Time for this wound consultation was 25 minutes and 15 minutes was spent with the patient discussing past medical history; assessing, measuring, and photographing the wounds; removing and reapplying a new dressing. Wound Problem/Plan Is Patient a Wound Clinic Patient: No Attending: Chen Wynne
[2018-09-23 05:59] LABS: Calcium 9.9 mg/dL (8.6-10.3); EGFR African American 44.7 (>60)
[2018-09-23] MEDS: Tiotropium CAP.INH* CAP.INH/18 MCG (USE ORDER SET !) INH SCH (07:56)
[2018-09-23] MEDS: Mometasone/Formoter 200/5 MDI INH SCH ×2 (07:56→20:07)
[2018-09-23] MEDS: Furosemide IV* 10 MG/ML VIAL (40 MG) IV SCH (08:12)
[2018-09-23] MEDS: Pantoprazole TAB * 40 MG TAB PO SCH ×2 (08:12→21:10)
[2018-09-23] MEDS: Atenolol TAB* 25 MG PO SCH (08:12)
[2018-09-23] MEDS: Citalopram TAB* 20 MG PO SCH ×2 (08:12→21:09)
[2018-09-23] MEDS: Cholestyramine Resin* 4 GM POWDER PO SCH (08:12)
[2018-09-23 16:55] LABS: Body Fluid Source Pleural Fluid
--- NOTE | 2018-09-23 17:43 | PN ---
Subjective Date of Service: 09/23/18 Interval History: Ms. Rosado is feeling ok this morning. She is frustrated that she is still in the hospital. She denies any respiratory complaints including SOB and cough. Has been up ambulating to the bathroom without difficulty. Denies CP, N/V, dizziness. No concerns from nursing. Patient was titrated down to 2L. Tele: Afib in the 90s. Family History: Unchanged from Admission Social History: Unchanged from Admission Past Medical History: Unchanged from Admission Objective Active Medications: Acetaminophen (Tylenol Tab*) 650 mg PO Q4H PRN FEVER/PAIN Albuterol (Ventolin 2.5 Mg/3 Ml Neb.Cherie*) 2.5 mg INH [id number] AWAKE PRN sob/wheezing Atenolol (Tenormin Tab*) 25 mg PO DAILY KEYA Cholestyramine Resin (Questran*) 4 gm PO DAILY KEYA Citalopram Hydrobromide (Celexa Tab*) 20 mg PO BID KEYA Furosemide (Lasix Iv*) 40 mg IV DAILY KEYA Mometasone Furoate/Formoterol Fumar (Dulera 200/5 Mdi*) 2 puff INH BID KEYA; Protocol Pantoprazole Sodium (Protonix Tab*) 40 mg PO BID KEYA Tiotropium [place] (Spiriva Cap.Inh*) 1 cap INH DAILY KEYA Vital Signs - 8 hr 09/23/18 09/23/18 09/23/18 11:35 11:36 15:31 Temperature 97.4 F 96.9 F Pulse Rate 37 75 75 Respiratory 20 16 Rate Blood Pressure 138/81 122/66 (mmHg) O2 Sat by Pulse 97 95 Oximetry 09/23/18 16:45 Temperature Pulse Rate 78 Respiratory 18 Rate Blood Pressure 119/73 (mmHg) O2 Sat by Pulse 95 Oximetry Oxygen Devices in Use Now: Nasal Cannula - 2L Appearance: Elderly female sitting in chair in NAD Eyes: No Scleral Icterus Ears/Nose/Mouth/Throat: Mucous Membranes Moist Neck: NL Appearance and Movements; NL JVP, Trachea Midline Respiratory: Symmetrical Chest Expansion and Respiratory Effort, - - Crackles to RLL, otherwise diminished throughout Cardiovascular: NL Sounds; No Murmurs; No JVD, RRR Abdominal: NL Sounds; No Tenderness; No Distention Neurological: Alert and Oriented x 3 Lines/Tubes/Other Access: Clean, Dry and Intact Peripheral IV Nutrition: Taking PO's Result Diagrams: 09/21/18 05:15 09/23/18 05:29 Assess/Plan/Problems-Billing Assessment: Ms. Rosado is a 72 yo F with PMH of DM, HTN, afib, seizures, and COPD; who presented to the ED with c/o dizziness and was found to be hypoxic. - Patient Problems (1) Acute congestive heart failure Code(s): I50.9 - HEART FAILURE, UNSPECIFIED Comment: - Secondary to bradycardia and low cardiac output - Echo shows EF 60-65%, no evidence of diastolic dysfunction - Continue furosemide, atenolol (2) Acute on chronic respiratory failure with hypoxia Code(s): J96.21 - ACUTE AND CHRONIC RESPIRATORY FAILURE WITH HYPOXIA Comment: - Secondary to CHF and pleural effusion - Now down to 2L - Typically uses oxygen with CPAP at night - Secondary to CHF and pleural effusion - Appreciate Pulmonology consult; holding Xarelto for thoracentesis today - Plan as above (3) Lung nodule Code(s): R91.1 - SOLITARY PULMONARY NODULE Comment: - CT shows 2cm round density in RUL with several tails - Concerning for malignancy d/t significant smoking history (current smoker) and new pleural effusion (? malignant effusion) - Results have been dicussed with patient and she understand that this may represent malignancy - Thoracentesis today; fluid will be sent for cytology (4) Bradycardia Code(s): R00.1 - BRADYCARDIA, UNSPECIFIED Comment: - Frequent pauses up to 3 seconds noted on tele, but no further bradycardia - Hold diltiazem; will likely NOT resume at d/c - Continue atenolol at decreased dose (5) Atrial fibrillation Code(s): I48.91 - UNSPECIFIED ATRIAL FIBRILLATION Comment: - Bradycardic on admission, now rate controlled - No evidence of tachycardia on tele to support tachy-sherrie syndrome - Hold diltiazem for bradycardia - Continue atenolol; resume Xarelto tomorrow AM (6) HTN (hypertension) Code(s): I10 - ESSENTIAL (PRIMARY) HYPERTENSION Comment: - Normotensive, SBP 110-130s - Continue atenolol, furosemide (7) COPD (chronic obstructive pulmonary disease) Code(s): J44.9 - CHRONIC OBSTRUCTIVE PULMONARY DISEASE, UNSPECIFIED Comment: - No evidence of exacerbation - Continue Dulera, Spiriva, nebs (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 Anticipate d/c home when medically stable, timeframe unknown. Attending: Delfina Smith
[2018-09-23 18:21] LABS: Body Fluid Mono 10 %; Body Fluid Other Cells 55
--- NOTE | 2018-09-23 18:50 | CONS ---
PULMONARY CONSULTATION REPORT: DATE OF CONSULT: 09/23/18 CONSULTATION REQUESTED BY: Kathy Plaza NP REASON FOR CONSULT: Evaluation of pleural effusion. HISTORY OF PRESENT ILLNESS: The patient is a 72-year-old female with history of COPD, known from prior outpatient evaluation. The patient presented to the hospital on 09/18/18 for evaluation of dizziness. The patient's prior history was also significant for stage 3 kidney disease, AFib, hypertension, dyslipidemia, history of BRUSH LOADER AND HANDLE ATTACHER shunt, and aneurysm repair 10 years ago. The patient presented for evaluation of dizziness that started suddenly the morning of admission. The patient denied any chest paint, edema, cough, hemoptysis, shortness of breath. She has chronic shortness of breath and mild intermittent cough that have been stable. She has denied nausea, vomiting, diarrhea, abdominal pain, hematuria, dysuria, generalized weakness, weight loss , or loss of appetite. Denied arthralgias, myalgias, or rash. Further evaluation in the emergency room showed slightly elevated troponin at 0.04. She was noted to have atrial fibrillation on EKG, which is rate controlled with occasional pauses. She was admitted for further workup of dizziness. The patient had further evaluation of dizziness with MRI of the brain and brain CT. The patient noted to have chronic subdural hematoma surrounding both cerebral and cerebellar hemispheres extending into the basilar cisterns. Old left frontal infarct and white matter changes were seen. Stable position of intraventricular catheter was seen. Chest x-ray done on admission was personally reviewed by me - the patient with evidence airspace opacity in the right lung concerning for possible pleural effusion versus pneumonia. The patient subsequently underwent CT scan of the chest. I have personally reviewed CT scan of the chest - the patient with evidence of right-sided pleural effusion with compressive atelectasis of the right lung. The patient noted to have subpleural density measuring 2 cm in the right upper lobe with radiological pictures suggestive of round atelectasis. The patient has been receiving diuresis to help improve the pleural effusion. She continued to have right pleural effusion in spite of the diuresis and pulmonary consultation was requested. PAST MEDICAL HISTORY: 1. Hypertension. 2. Type 2 diabetes. 3. Depression. 4. History of cerebellar aneurysm status post clip and BRUSH LOADER AND HANDLE ATTACHER shunt. 5. Escamilla esophagus. 6. AFib. 7. Seizures. 8. COPD. 9. GERD. PAST SURGICAL HISTORY: 1. Hysterectomy. 2. Brain aneurysm clipping with BRUSH LOADER AND HANDLE ATTACHER shunt 10 years ago. 3. Appendectomy. 4. Cholecystectomy. 5. Cataract surgery. 6. Lower back surgery. MEDICATIONS AT HOME: 1. Citalopram. 2. Xarelto. 3. Omeprazole. 4. Incruse. 5. Metolazone. 6. Diltiazem. 7. Tramadol. 8. Atenolol. 9. Symbicort. 10. Questran. 11. Furosemide. ALLERGIES: TOMATOES. FAMILY HISTORY: Father with hypertension. Mother also with hypertension and VT. No history pf malignancies in family. SOCIAL HISTORY: Smoker, smokes half a pack per day, has been smoking for 53 years. Occasional alcohol intake. Denies drug abuse. REVIEW OF SYSTEMS: All 11 systems reviewed, as per HPI. PHYSICAL EXAM: The patient in bed, in no apparent distress. Vital Signs: Temperature 96.9, pulse 75 beats per minute, respiratory rate 16 per minute, O2 sat 95% on 3 L, blood pressure 122/66. HEENT: Pupils equal, reactive to light. Mucous membranes moist. Lungs: Decreased breath sounds on the right side. No wheeze. Cardiovascular: S1, S2 present. No murmurs, gallops, or rubs. Irregular heart sounds. Abdomen: Soft, bowel sounds present. Extremities: 1+ edema bilaterally, normal range of motion. Neurologic: Alert , awake and oriented x3. Skin: Evidence of skin breakdown in the right medial lower leg. IMPRESSION AND RECOMMENDATION: 72-year-old female with significant smoking history, current smoker, with history of chronic obstructive pulmonary disease and extensive cardiac history with right-sided pleural effusion that does not improve with diuresis. The patient also with evidence of rounded atelectasis in the right lung. The patient needs further evaluation of this pleural effusion. Will schedule the patient for thoracentesis under ultrasound guidance on the right side to remove the fluid for diagnostic and therapeutic reasons. The patient was on Xarelto, which was being held since yesterday. Will send the fluid for further testing. Further recommendations pending thoracentesis report. The patient did not have the rounded atelectatic area on prior CT in the right middle lobe area, this needs to be followed up as outpatient. Thank you for allowing me to participate in the care of Ms. Rosado. Will follow up with you. [id number]/[facility] #: [id number] DOREEN
--- NOTE | 2018-09-24 02:22 | PRO ---
THORACENTESIS REPORT: DATE OF PROCEDURE: 09/23/18 PROCEDURE PERFORMED: Ultrasound-guided thoracentesis from the right side. PREPROCEDURAL DIAGNOSIS: Moderate right pleural effusion. POSTPROCEDURAL DIAGNOSIS: Right pleural effusion. ANESTHESIA: Local anesthesia with 1% lidocaine. DESCRIPTION OF PROCEDURE: Informed consent was obtained from the patient prior to the procedure after all the risks and benefits were thoroughly explained. The patient was admitted with dizziness, was found to have significant pleural effusion on the right side. The patient with continued effusion in spite of diuresis and associated lung collapse. The patient also with nodular mass lesion in the right lung radiologically suggestive of possible rounded atelectasis. Informed consent was obtained from the patient prior to the procedure after all the risks and benefits were thoroughly explained. The patient was sitting up and leaning forward during the procedure. A portable ultrasound was utilized at bedside to localize the area for access of thoracentesis. Appropriate time-out was agreed on by attending staff. Strict aseptic precautions and barrier techniques were utilized. A CareFusion 8-Czech thoracentesis catheter was utilized for the procedure. Area was anesthetized with chlorhexidine. Sterile drape was placed after the site was marked with ultrasound. The area was anesthetized with 1% lidocaine transdermally down into the pleural space taking precautions. An #11 scalpel blade was used to make stab incision. CareFusion 8-Czech thoracentesis catheter was subsequently inserted under manual suction taking precautions. Catheter was left in place and needle was removed. 900 mL of dark yellow fluid was removed under manual suction. The patient had a little bit of coughing towards the end of the procedure. The patient otherwise tolerated the procedure well. Postprocedural chest x-ray was ordered and pending at the time of dictation. [id number]/[facility] #: [id number] [facility]
[2018-09-24 06:41] LABS: ABS Eosinophils 0.1 10^3/ul (0-0.6); ABS Lymphocytes 0.4 10^3/ul (1.0-4.8); ABS Monocytes 0.6 10^3/ul (0-0.8); Eosinophil % 1.7 %; Hematocrit 41 % (35-47); Hemoglobin 13.7 g/dL (12.0-16.0); Lymphocyte % 7.1 %; Mean Corpuscular HGB Conc 34 g/dL (31-36); Mean Corpuscular Hemoglobin 31 pg (27-31); Mean Corpuscular Volume 91 fL (80-97); Mean Platelet Volume 8.2 fL (7.4-10.4); Nucleated Red Blood Cells % 0.4; Platelet Count 116 10^3/uL (150-450); Red Blood Count 4.47 10^6 /uL (3.70-4.87); Red Cell Distribution Width 15 % (10.5-15); White Blood Count 6.1 10^3/uL (3.5-10.8)
[2018-09-24 07:00] LABS: Calcium 9.9 mg/dL (8.6-10.3)
[2018-09-24 07:05] LABS: BUN/Creatinine Ratio 45.9 (8-20); EGFR African American 52.4 (>60); EGFR Non-African American 43.3 (>60)
[2018-09-24] MEDS: Tiotropium CAP.INH* CAP.INH/18 MCG (USE ORDER SET !) INH SCH (07:54)
[2018-09-24] MEDS: Mometasone/Formoter 200/5 MDI INH SCH ×2 (07:54→20:57)
[2018-09-24] MEDS: Atenolol TAB* 25 MG PO SCH (08:11)
[2018-09-24] MEDS: Cholestyramine Resin* 4 GM POWDER PO SCH (08:11)
[2018-09-24] MEDS: Pantoprazole TAB * 40 MG TAB PO SCH ×2 (08:11→21:47)
[2018-09-24] MEDS: Citalopram TAB* 20 MG PO SCH ×2 (08:12→21:47)
[2018-09-24] MEDS: Furosemide IV* 10 MG/ML VIAL (40 MG) IV SCH (08:12)
[2018-09-24 10:12] LABS: Magnesium 1.3 mg/dL (1.9-2.7)
[2018-09-24] MEDS ORDERED: Magnesium Sulfate 2 GM IV* 2 GM/50 ML BAG IVPB ONE ×2 (11:26→13:30)
--- NOTE | 2018-09-24 11:34 | PN ---
Subjective Date of Service: 09/24/18 Interval History: Sitting in chair on assessment. Denies respiratory complaints. Reports sob has greatly improved since admission. Denies cp, palpitations, nausea, vomiting, dizziness, fever, chills. Family History: Unchanged from Admission Social History: Unchanged from Admission Past Medical History: Unchanged from Admission Objective Active Medications: Acetaminophen (Tylenol Tab*) 650 mg PO Q4H PRN PRN Reason: FEVER/PAIN Last Admin: 09/21/18 19:38 Dose: 650 mg Albuterol (Ventolin 2.5 Mg/3 Ml Neb.Cherie*) 2.5 mg INH [id number] AWAKE PRN PRN Reason: sob/wheezing Atenolol (Tenormin Tab*) 25 mg PO DAILY [facility] Last Admin: 09/24/18 08:11 Dose: 25 mg Cholestyramine Resin (Questran*) 4 gm PO DAILY [facility] Last Admin: 09/24/18 08:11 Dose: 4 gm Citalopram Hydrobromide (Celexa Tab*) 20 mg PO BID [facility] Last Admin: 09/24/18 08:12 Dose: 20 mg Furosemide (Lasix Iv*) 40 mg IV DAILY [facility] Last Admin: 09/24/18 08:12 Dose: 40 mg Magnesium Sulfate (Magnesium Sulfate 2 Gm Iv*) 2 gm in 50 mls @ 50 mls/hr IVPB ONCE ONE Stop: 09/24/18 12:25 Magnesium Sulfate (Magnesium Sulfate 2 Gm Iv*) 2 gm in 50 mls @ 50 mls/hr IVPB ONCE ONE Stop: 09/24/18 14:29 Mometasone Furoate/Formoterol Fumar (Dulera 200/5 Mdi*) 2 puff INH BID [facility]; Protocol Last Admin: 09/24/18 07:54 Dose: 2 puff Pantoprazole Sodium (Protonix Tab*) 40 mg PO BID [facility] Last Admin: 09/24/18 08:11 Dose: 40 mg Rivaroxaban (Xarelto(*)) 15 mg PO QPM [facility] Tiotropium [place] (Spiriva Cap.Inh*) 1 cap INH DAILY [facility] Last Admin: 09/24/18 07:54 Dose: 1 cap Vital Signs - 8 hr 09/24/18 09/24/18 09/24/18 03:49 07:30 07:55 Temperature 97 F 98.4 F Pulse Rate 94 88 76 Respiratory 24 16 18 Rate Blood Pressure 122/61 101/47 (mmHg) O2 Sat by Pulse 95 95 96 Oximetry 09/24/18 09/24/18 08:00 11:17 Temperature 97.2 F Pulse Rate 68 Respiratory 18 18 Rate Blood Pressure 119/67 (mmHg) O2 Sat by Pulse 91 Oximetry Oxygen Devices in Use Now: Nasal Cannula Appearance: Comfortable, NAD Eyes: No Scleral Icterus Ears/Nose/Mouth/Throat: Clear Oropharnyx, Mucous Membranes Moist Neck: NL Appearance and Movements; NL JVP Respiratory: Symmetrical Chest Expansion and Respiratory Effort, Clear to Auscultation Cardiovascular: NL Sounds; No Murmurs; No JVD, No Edema Abdominal: NL Sounds; No Tenderness; No Distention Lymphatic: No Cervical Adenopathy Extremities: No Clubbing, Cyanosis Skin: - - Dressing to right posterior torso is CDI Neurological: Alert and Oriented x 3, NL Muscle Strength and Tone Nutrition: Taking PO's Result Diagrams: 09/24/18 05:20 09/24/18 05:20 Additional Lab and Data: Laboratory Results - last 24 hr 09/23/18 09/24/18 09/24/18 16:46 05:20 05:20 WBC 6.1 RBC 4.47 Hgb 13.7 Hct 41 MCV 91 MCH 31 MCHC 34 RDW 15 Plt Count 116 L MPV 8.2 Neut % (Auto) 81.4 Lymph % (Auto) 7.1 [place] % (Auto) 9.3 Eos % (Auto) 1.7 Baso % (Auto) 0.5 Absolute Neuts (auto) 5.0 Absolute Lymphs (auto) 0.4 L Absolute Monos (auto) 0.6 Absolute Eos (auto) 0.1 Absolute Basos (auto) 0.0 Absolute Nucleated RBC 0.0 Nucleated RBC % 0.4 Sodium 137 Potassium 4.0 Chloride 97 L Carbon Dioxide 31 Anion Gap 9 BUN 56 H Creatinine 1.22 H Est GFR ( Amer) 52.4 Est GFR (Non-Af Amer) 43.3 BUN/Creatinine Ratio 45.9 H Glucose 135 H Calcium 9.9 Magnesium 1.3 L Fluid Source Pleural fluid Fluid Volume 800.0 Fluid Color Red Fluid Appearance Bloody Fluid WBC 621 Fluid RBC 42616 Fluid Tot Cell Count 100 Fluid Neutrophils 30 Fluid Lymphocytes 60 Fluid Monocytes 10 Fluid Other Cells 55 Microbiology and Other Data: Microbiology 09/19/18 22:15 No Source Provided Aerobic Blood Culture - Preliminary No Growth Day 4 09/19/18 22:15 No Source Provided Anaerobic Blood Culture - Preliminary No Growth Day 4 09/23/18 16:46 Pleural Fluid Gram Stain - Final Assess/Plan/Problems-Billing Assessment: Ms. Rosado is a 72 yo F with PMH of DM, HTN, afib, seizures, and COPD; who presented to the ED with c/o dizziness and was found to be hypoxic. - Patient Problems (1) Hypomagnesemia Comment: - Mag 1.3 - Replacement ordered - Recheck tomorrow (2) Acute congestive heart failure Comment: - Secondary to bradycardia and low cardiac output - Echo shows EF 60-65%, no evidence of diastolic dysfunction - DC IV furosemide and continue home dose of furosemide. - Cont atenolol - Resume home dose of Metolazone (3) Atrial fibrillation Comment: - Bradycardic on admission, now rate controlled - No evidence of tachycardia on tele to support tachy-sherrie syndrome - Hold diltiazem for bradycardia - Continue atenolol - Cont Xarelto which was restarted this AM after procedure (4) Bradycardia Comment: - Frequent pauses up to 3 seconds noted on tele, but no further bradycardia - Hold diltiazem; will likely NOT resume at d/c - Continue atenolol at decreased dose (5) COPD (chronic obstructive pulmonary disease) Comment: - No evidence of exacerbation - Continue Dulera, Spiriva, nebs (6) Lung nodule Current Visit: Yes Status: Acute Code(s): R91.1 - SOLITARY PULMONARY NODULE SNOMED Code(s): 256482714 Comment: - CT shows 2cm round density in RUL with several tails - Concerning for malignancy d/t significant smoking history (current smoker) and new pleural effusion (? malignant effusion) - Results have been dicussed with patient and she understand that this may represent malignancy - Thoracentesis yesterday; awaiting cytology (7) Acute on chronic respiratory failure with hypoxia Comment: - Secondary to CHF and pleural effusion - Now down to 1L - Typically uses oxygen with CPAP at night - Secondary to CHF and pleural effusion - Appreciate Pulmonology consult - Plan as above (8) Escamilla esophagus Comment: - Continue pantoprazole (9) Depression Comment: - Continue citalopram (10) HTN (hypertension) Comment: - Normotensive, SBP 110-130s - Continue atenolol, furosemide, metolazone (11) HEAD HOUSEKEEPER (ventriculoperitoneal) shunt status Comment: - Stable - Prior cerebral aneurysm (12) DVT prophylaxis Comment: - Xarelto Status and Disposition: Inpatient. Anticipate d/c home when medically stable, timeframe unknown. Attending: Asia Avendano
[2018-09-24] MEDS: Rivaroxaban TAB(*) 15 MG PO SCH (17:28)
--- NOTE | 2018-09-24 18:28 | PN ---
Progress Note - Progress Note Date of Service: 09/24/18 - Pulm f/u note Note: Pt seen and examined at bedside. Pt reports improvement in SOB, has been having chills, no fever. Active Medications Generic Name Dose Route Start Last Admin Trade Name Freq PRN Reason Stop Dose Admin Acetaminophen 650 mg 09/18/18 21:05 09/21/18 19:38 Tylenol Tab* PO 650 mg Q4H PRN Administration FEVER/PAIN Albuterol 2.5 mg 09/18/18 21:05 Ventolin 2.5 Mg/3 Ml Neb.Cherie* INH [id number] AWAKE PRN sob/wheezing Atenolol 25 mg 09/21/18 09:00 09/24/18 08:11 Tenormin Tab* PO 25 mg DAILY [facility] Administration Cholestyramine Resin 4 gm 09/19/18 09:00 09/24/18 08:11 Questran* PO 4 gm DAILY [facility] Administration Citalopram Hydrobromide 20 mg 09/19/18 09:00 09/24/18 08:12 Celexa Tab* PO 20 mg BID [facility] Administration Furosemide 40 mg 09/25/18 11:00 Lasix Tab* PO DAILY@1100 [facility] Metolazone 5 mg 09/25/18 10:30 Zaroxolyn Tab* PO DAILY@1030 [facility] Mometasone Furoate/Formoterol Fumar 2 puff 09/19/18 09:00 09/24/18 07:54 Dulera 200/5 Mdi* INH 2 puff BID [facility] Administration Protocol Pantoprazole Sodium 40 mg 09/19/18 09:00 09/24/18 08:11 Protonix Tab* PO 40 mg BID [facility] Administration Rivaroxaban 15 mg 09/24/18 18:00 09/24/18 17:28 Xarelto(*) PO 15 mg QPM [facility] Administration Tiotropium [place] 1 cap 09/21/18 14:00 09/24/18 07:54 Spiriva Cap.Inh* INH 1 cap DAILY [facility] Administration Vital Signs Temp Pulse Resp BP Pulse Ox 98.0 F 63 20 119/63 90 09/24/18 15:10 09/24/18 15:10 09/24/18 15:10 09/24/18 15:10 09/24/18 15:10 O/E: Pt in NAD HEENT: PERRLA Lungs: Crackles at rt base CVS: S1, S2+ Abd: Soft, BS+ Ext: 1+ edema Neuro: No focal deficits Laboratory Results - last 24 hr 09/23/18 09/24/18 09/24/18 16:46 05:20 05:20 WBC 6.1 RBC 4.47 Hgb 13.7 Hct 41 MCV 91 MCH 31 MCHC 34 RDW 15 Plt Count 116 L MPV 8.2 Neut % (Auto) 81.4 Lymph % (Auto) 7.1 [place] % (Auto) 9.3 Eos % (Auto) 1.7 Baso % (Auto) 0.5 Absolute Neuts (auto) 5.0 Absolute Lymphs (auto) 0.4 L Absolute Monos (auto) 0.6 Absolute Eos (auto) 0.1 Absolute Basos (auto) 0.0 Absolute Nucleated RBC 0.0 Nucleated RBC % 0.4 Sodium 137 Potassium 4.0 Chloride 97 L Carbon Dioxide 31 Anion Gap 9 BUN 56 H Creatinine 1.22 H Est GFR ( Amer) 52.4 Est GFR (Non-Af Amer) 43.3 BUN/Creatinine Ratio 45.9 H Glucose 135 H Calcium 9.9 Magnesium 1.3 L Fluid Cell Count Rvw By I/R: 72 yo F with PMH of DM, HTN, afib, seizures, and COPD; who presented to the ED with c/o dizziness and was found to be hypoxic sec to acute CHF exacerbation. Pt wiht persistent rt effusion inspite of diuresis, underwent thoracentessi yesterday Results reviewed with pt- Negative for maignancy Negative cx Pt symptomatically improved CT showed area suggestive of rounded atelctasis, will need f/u in 6 months Rest of management as per primary team
[2018-09-25 06:12] LABS: BUN/Creatinine Ratio 43.8 (8-20); Calcium 9.3 mg/dL (8.6-10.3); EGFR African American 52.9 (>60); EGFR Non-African American 43.7 (>60); Magnesium 2.2 mg/dL (1.9-2.7); Potassium 3.7 mmol/L (3.5-5.0)
[2018-09-25] MEDS: Mometasone/Formoter 200/5 MDI INH SCH ×2 (07:26→20:16)
[2018-09-25] MEDS: Tiotropium CAP.INH* CAP.INH/18 MCG (USE ORDER SET !) INH SCH (07:27)
[2018-09-25] MEDS: Cholestyramine Resin* 4 GM POWDER PO SCH (08:42)
[2018-09-25] MEDS: Pantoprazole TAB * 40 MG TAB PO SCH ×2 (08:42→22:07)
[2018-09-25] MEDS: Atenolol TAB* 25 MG PO SCH (08:43)
[2018-09-25] MEDS: Citalopram TAB* 20 MG PO SCH ×2 (08:43→22:07)
[2018-09-25] MEDS: Metolazone TAB* 5 MG PO SCH (10:43)
[2018-09-25 11:30] LABS: Fluid Type: PLEURAL
[2018-09-25] MEDS: Furosemide TAB* 20 MG PO SCH (12:24)
--- NOTE | 2018-09-25 15:49 | PN ---
Subjective Date of Service: 09/25/18 Interval History: Pt is feeling well today. Her breathing is comfortable. She is not coughing. No LE edema-she states it is much better than it has been recently. She denies any pain. Family History: Unchanged from Admission Social History: Unchanged from Admission Past Medical History: Unchanged from Admission Objective Active Medications: Acetaminophen (Tylenol Tab*) 650 mg PO Q4H PRN PRN Reason: FEVER/PAIN Last Admin: 09/21/18 19:38 Dose: 650 mg Albuterol (Ventolin 2.5 Mg/3 Ml Neb.Cherie*) 2.5 mg INH [id number] AWAKE PRN PRN Reason: sob/wheezing Atenolol (Tenormin Tab*) 25 mg PO DAILY [facility] Last Admin: 09/25/18 08:43 Dose: 25 mg Cholestyramine Resin (Questran*) 4 gm PO DAILY [facility] Last Admin: 09/25/18 08:42 Dose: 4 gm Citalopram Hydrobromide (Celexa Tab*) 20 mg PO BID [facility] Last Admin: 09/25/18 08:43 Dose: 20 mg Furosemide (Lasix Tab*) 40 mg PO DAILY@1100 [facility] Last Admin: 09/25/18 12:24 Dose: 40 mg Metolazone (Zaroxolyn Tab*) 5 mg PO DAILY@1030 [facility] Last Admin: 09/25/18 10:43 Dose: 5 mg Mometasone Furoate/Formoterol Fumar (Dulera 200/5 Mdi*) 2 puff INH BID [facility]; Protocol Last Admin: 09/25/18 07:26 Dose: Not Given Pantoprazole Sodium (Protonix Tab*) 40 mg PO BID [facility] Last Admin: 09/25/18 08:42 Dose: 40 mg Rivaroxaban (Xarelto(*)) 15 mg PO QPM [facility] Last Admin: 09/24/18 17:28 Dose: 15 mg Tiotropium [place] (Spiriva Cap.Inh*) 1 cap INH DAILY [facility] Last Admin: 09/25/18 07:27 Dose: Not Given Vital Signs - 8 hr 09/25/18 09/25/18 08:00 10:02 Temperature 96.9 F Respiratory 16 Rate Blood Pressure 99/63 (mmHg) O2 Sat by Pulse 98 Oximetry Oxygen Devices in Use Now: Nasal Cannula Appearance: Elderly female sitting up in bed, NAD Eyes: No Scleral Icterus Ears/Nose/Mouth/Throat: Mucous Membranes Moist Respiratory: Symmetrical Chest Expansion and Respiratory Effort, Clear to Auscultation - few coarse bibasilar crackles Cardiovascular: NL Sounds; No Murmurs; No JVD, - - trace LE edema, irregularly irregular HR, controlled Abdominal: NL Sounds; No Tenderness; No Distention Extremities: No Clubbing, Cyanosis Skin: No Nodules or Sclerosis Neurological: Alert and Oriented x 3 Result Diagrams: 09/24/18 05:20 09/25/18 05:33 Additional Lab and Data: Laboratory Results - last 24 hr 09/23/18 09/24/18 09/24/18 16:46 05:20 05:20 WBC 6.1 RBC 4.47 Hgb 13.7 Hct 41 MCV 91 MCH 31 MCHC 34 RDW 15 Plt Count 116 L MPV 8.2 Neut % (Auto) 81.4 Lymph % (Auto) 7.1 [place] % (Auto) 9.3 Eos % (Auto) 1.7 Baso % (Auto) 0.5 Absolute Neuts (auto) 5.0 Absolute Lymphs (auto) 0.4 L Absolute Monos (auto) 0.6 Absolute Eos (auto) 0.1 Absolute Basos (auto) 0.0 Absolute Nucleated RBC 0.0 Nucleated RBC % 0.4 Sodium 137 Potassium 4.0 Chloride 97 L Carbon Dioxide 31 Anion Gap 9 BUN 56 H Creatinine 1.22 H Est GFR ( Amer) 52.4 Est GFR (Non-Af Amer) 43.3 BUN/Creatinine Ratio 45.9 H Glucose 135 H Calcium 9.9 Magnesium 1.3 L Fluid Source Pleural fluid Fluid Volume 800.0 Fluid Color Red Fluid Appearance Bloody Fluid WBC 621 Fluid RBC 85004 Fluid Tot Cell Count 100 Fluid Neutrophils 30 Fluid Lymphocytes 60 Fluid Monocytes 10 Fluid Other Cells 55 Microbiology and Other Data: Microbiology 09/19/18 22:15 No Source Provided Aerobic Blood Culture - Preliminary No Growth Day 4 09/19/18 22:15 No Source Provided Anaerobic Blood Culture - Preliminary No Growth Day 4 09/23/18 16:46 Pleural Fluid Gram Stain - Final Assess/Plan/Problems-Billing Ms. Rosado is a 72 yo F with PMH of DM, HTN, afib, seizures, and COPD; who presented to the ED with c/o dizziness and was found to be hypoxic likely secondary to pulmonary edema and pleural effusion. - Patient Problems (1) Acute on chronic respiratory failure with hypoxia Current Visit: No Status: Acute Code(s): J96.21 - ACUTE AND CHRONIC RESPIRATORY FAILURE WITH HYPOXIA SNOMED Code(s): 32865515 Comment: Secondary to probable diastolic CHF and pleural effusion. Her O2 was turned up last night as she was hypoxic while sleeping off CPAP. Weaned down to 2L which she may need continuously at home. She already has O2 set up. (2) Acute congestive heart failure Current Visit: Yes Status: Acute Code(s): I50.9 - HEART FAILURE, UNSPECIFIED SNOMED Code(s): 93190278 Comment: Erie to be secondary to bradycardia and low cardiac output. Echo shows EF 60-65% and no evidence of diastolic dysfunction. Appears euvolemic. Continue home doses of metolazone and lasix. (3) Dizziness Current Visit: Yes Status: Acute Code(s): R42 - DIZZINESS AND GIDDINESS SNOMED Code(s): 398024307 Comment: Present on admission. Now resolved. MRI negative for CVA. Likely secondary to bradycardia and hypoxia. (4) Atrial fibrillation Current Visit: Yes Status: Acute Code(s): I48.91 - UNSPECIFIED ATRIAL FIBRILLATION SNOMED Code(s): 04552440 Comment: Bradycardic on admission and now in good range. No evidence of tachycardia on tele to support tachy-sherrie syndrome. Hold diltiazem for bradycardia but continue atenolol. Continue xarelto. (5) Lung nodule Current Visit: Yes Status: Acute Code(s): R91.1 - SOLITARY PULMONARY NODULE SNOMED Code(s): 039029841 Comment: CT shows 2cm round density in RUL with several tails. This is concerning for malignancy d/t significant smoking history. Pleural effusion is negative for malignancy. Follow up with Dr. Green. (6) COPD (chronic obstructive pulmonary disease) Current Visit: Yes Status: Acute Code(s): J44.9 - CHRONIC OBSTRUCTIVE PULMONARY DISEASE, UNSPECIFIED SNOMED Code(s): 93527102 Comment: No evidence of exacerbation. Continue Dulera, Spiriva, nebs. (7) HTN (hypertension) Current Visit: Yes Status: Acute Code(s): I10 - ESSENTIAL (PRIMARY) HYPERTENSION SNOMED Code(s): 99960288 Comment: BP is under acceptable control. Continue current medication regimen. (8) PADDOCK JUDGE (ventriculoperitoneal) shunt status Current Visit: No Status: Acute Comment: Noted (9) DVT prophylaxis Current Visit: Yes Status: Acute Code(s): ATV6842 - SNOMED Code(s): 879782693 Comment: Marianne (10) DNR (do not resuscitate) Current Visit: Yes Status: Acute Comment: Status and Disposition: likely d/c home tomorrow
[2018-09-25 16:39] LABS: Lactate Dehydrogenase, BF 109 U/L
--- NOTE | 2018-09-25 16:51 | PN ---
Progress Note - Progress Note Date of Service: 09/25/18 - Pulm f/u note Note: Pt seen and examined at bedside. Pt reports feleing better. denies SOB. Denied chills Active Medications Generic Name Dose Route Start Last Admin Trade Name Freq PRN Reason Stop Dose Admin Acetaminophen 650 mg 09/18/18 21:05 09/21/18 19:38 Tylenol Tab* PO 650 mg Q4H PRN Administration FEVER/PAIN Albuterol 2.5 mg 09/18/18 21:05 Ventolin 2.5 Mg/3 Ml Neb.Cherie* INH [id number] AWAKE PRN sob/wheezing Atenolol 25 mg 09/21/18 09:00 09/25/18 08:43 Tenormin Tab* PO 25 mg DAILY KEYA Administration Cholestyramine Resin 4 gm 09/19/18 09:00 09/25/18 08:42 Questran* PO 4 gm DAILY KEYA Administration Citalopram Hydrobromide 20 mg 09/19/18 09:00 09/25/18 08:43 Celexa Tab* PO 20 mg BID KEYA Administration Furosemide 40 mg 09/25/18 11:00 09/25/18 12:24 Lasix Tab* PO 40 mg DAILY@1100 KEYA Administration Metolazone 5 mg 09/25/18 10:30 09/25/18 10:43 Zaroxolyn Tab* PO 5 mg DAILY@1030 KEYA Administration Mometasone Furoate/Formoterol Fumar 2 puff 09/19/18 09:00 09/25/18 07:26 Dulera 200/5 Mdi* INH Not Given BID [facility] Protocol Pantoprazole Sodium 40 mg 09/19/18 09:00 09/25/18 08:42 Protonix Tab* PO 40 mg BID KEYA Administration Rivaroxaban 15 mg 09/24/18 18:00 09/24/18 17:28 Xarelto(*) PO 15 mg QPM KEYA Administration Tiotropium [place] 1 cap 09/21/18 14:00 09/25/18 07:27 Spiriva Cap.Inh* INH Not Given DAILY [facility] Vital Signs Temp Pulse Resp BP Pulse Ox 98.1 F 100 20 117/54 97 09/25/18 15:47 09/25/18 15:47 09/25/18 15:47 09/25/18 15:47 09/25/18 15:47 O/E: Pt in NAD HEENT: PERRLA Lungs: Crackles at rt base CVS: S1, S2+ Abd: Soft, BS+ Ext: 1+ edema Neuro: No focal deficits Laboratory Results - last 24 hr 09/23/18 09/23/18 09/23/18 16:46 16:46 16:46 Sodium Potassium Chloride Carbon Dioxide Anion Gap BUN Creatinine Est GFR ( Amer) Est GFR (Non-Af Amer) BUN/Creatinine Ratio Glucose Calcium Magnesium Fluid Type Pleural Fluid Source Pleural Pleural Fluid Glucose Fluid Total Protein 3.5 Fluid LDH 109 Fluid Cholesterol 26 Miscellaneous Test 09/23/18 09/23/18 09/25/18 16:46 16:46 05:33 Sodium 136 Potassium 3.7 Chloride 97 L Carbon Dioxide 31 Anion Gap 8 BUN 53 H Creatinine 1.21 H Est GFR ( Amer) 52.9 Est GFR (Non-Af Amer) 43.7 BUN/Creatinine Ratio 43.8 H Glucose 135 H Calcium 9.3 Magnesium 2.2 Fluid Type Fluid Source Pleural Fluid Glucose 161 Fluid Total Protein Fluid LDH Fluid Cholesterol Miscellaneous Test See comment I/R: 72 yo F with PMH of DM, HTN, afib, seizures, and COPD; who presented to the ED with c/o dizziness and was found to be hypoxic sec to acute CHF exacerbation. Pt with persistent rt effusion inspite of diuresis, underwent thoracentesis Results reviewed with pt- Negative for maignancy, transudative Negative cx Pt symptomatically improved CT showed area suggestive of rounded atelctasis in RUL, will need f/u in 6 months Rest of management as per primary team D/w Dr Al
[2018-09-25] MEDS: Rivaroxaban TAB(*) 15 MG PO SCH (16:57)
[2018-09-25] MEDS: Acetaminophen TAB* 325 MG PO PRN (22:08)
[2018-09-26] MEDS ORDERED: Potassium Chlor TAB* 20 MEQ TAB.ER PO ONE (00:14)
[2018-09-26 05:28] VITALS: BP 115/59
[2018-09-26] MEDS: Mometasone/Formoter 200/5 MDI INH SCH (08:24)
[2018-09-26] MEDS: Tiotropium CAP.INH* CAP.INH/18 MCG (USE ORDER SET !) INH SCH (08:25)
[2018-09-26] MEDS: Cholestyramine Resin* 4 GM POWDER PO SCH (08:42)
[2018-09-26] MEDS: Atenolol TAB* 25 MG PO SCH (08:42)
[2018-09-26] MEDS: Pantoprazole TAB * 40 MG TAB PO SCH (08:42)
[2018-09-26] MEDS: Citalopram TAB* 20 MG PO SCH (08:42)
[2018-09-26] MEDS: Metolazone TAB* 5 MG PO SCH (10:48)
[2018-09-26] MEDS: Furosemide TAB* 20 MG PO SCH (11:37)
--- NOTE | 2018-09-26 13:05 | DS ---
CC: Dr. Mccarthy; Dr. Green DISCHARGE SUMMARY: DATE OF ADMISSION: DATE OF DISCHARGE: 09/26/18 HISTORY OF PRESENT ILLNESS: This 72-year-old woman is admitted with a history of dizziness. She was thought to have benign positional vertigo. She also had hypoxia. She received intravenous furosemi de in the emergency room. I believe she was admitted primarily because of desaturation to the 70s on room air in the emergency room. She has oxygen and CPAP at home. She has chronic atrial fibrillati on as well. On CT scan, she was found to have a pulmonary nodule. She also had a right-sided pleural effusion. Dr. Green did a thoracentesis on 09/23/18. Approximately 900 mL of dark yellow fluid was removed. The patient's breathing improved significantly after that. The pathology on the pleural fluid was ne gative for malignant cells. Inflammatory cells are seen. The patient is at her baseline at discharge. She will follow up with Dr. Green for her pulmonary no dule in the right upper lobe. FINAL DIAGNOSES: 1. [id number] respiratory failure with hypoxia. 2. Congestive heart failure. 3. Dizziness, likely due to vertigo. 4. Chronic atrial fibrillation. 5. Right upper lobe pulmonary nodule. 6. Hypertension. 7. Ventriculoperitoneal shunt. 8. Tobacco use disorder. The patient was encouraged to quit smoking and avoid second-hand smoke. As mentioned above, she will follow up with Dr. Green as well as Dr. Mccarthy. During the hospital stay, her metoprolol dose was decreased significantly. She remained rate control led on the lower dose. Diltiazem was stopped completely. I am reducing her citalopram from b.i.d. t o once daily on the day of discharge, which she readily agreed to. DISCHARGE MEDICATIONS: 1. Atenolol 25 mg daily. 2. Citalopram 20 mg daily. 3. Omeprazole 20 mg b.i.d. 4. Alendronate 70 mg weekly. 5. Furosemide 40 mg daily. 6. Cholestyramine 4 g daily. 7. Symbicort 160/4.5 two puffs b.i.d. 8. Tramadol 50 mg every 6 hours p.r.n. 9. Umeclidinium 1 puff daily. 10. Rivaroxaban 15 mg daily. CONDITION ON DISCHARGE: Stable. DISPOSITION ON DISCHARGE: Discharged home with followup with Dr. Mccarthy and Dr. Green. [id number]/CPS #: [id number]
[2018-09-27] MEDS ORDERED: Citalopram TAB* 20 MG PO SCH (09:00)
== END 2018-09-26 12:00 | disposition home or self-care (01) | DRG 291 ==
LOC: ED 13:12 → MEDTELE 21:05 → OBSVTOIN 09-19 11:47
PROVIDERS: ADMIT Hospitalist; ATTEND Internal Medicine
PROC: 5A09357 Assistance with Respiratory Ventilation, Less than 24 Consecutive Hours, Continuous Positive Airway Pressure (ICD-10-PCS; principal; 2018-09-19)
PROC: 0W9930Z Drainage of Right Pleural Cavity with Drainage Device, Percutaneous Approach (ICD-10-PCS; 2018-09-23)
DX: I13.0 Hypertensive heart and chronic kidney disease with heart failure and stage 1 through stage 4 chronic kidney disease, or unspecified chronic kidney disease (principal); J96.21 Acute and chronic respiratory failure with hypoxia; J98.11 Atelectasis; I50.20 Unspecified systolic (congestive) heart failure; J44.9 Chronic obstructive pulmonary disease, unspecified; Z86.718 Personal history of other venous thrombosis and embolism; E78.00 Pure hypercholesterolemia, unspecified; E78.5 Hyperlipidemia, unspecified; K21.9 Gastro-esophageal reflux disease without esophagitis; K22.70 Barrett's esophagus without dysplasia; M19.90 Unspecified osteoarthritis, unspecified site; K46.9 Unspecified abdominal hernia without obstruction or gangrene; F17.210 Nicotine dependence, cigarettes, uncomplicated; I44.7 Left bundle-branch block, unspecified; E83.42 Hypomagnesemia; E11.22 Type 2 diabetes mellitus with diabetic chronic kidney disease; N18.3 Chronic kidney disease, stage 3 (moderate); I49.5 Sick sinus syndrome; R74.8 Abnormal levels of other serum enzymes; Z66 Do not resuscitate; I48.2 Chronic atrial fibrillation; R91.1 Solitary pulmonary nodule; R00.1 Bradycardia, unspecified; Z98.49 Cataract extraction status, unspecified eye; Z83.3 Family history of diabetes mellitus; Z90.710 Acquired absence of both cervix and uterus; Z91.018 Allergy to other foods; Z87.442 Personal history of urinary calculi; Z82.49 Family history of ischemic heart disease and other diseases of the circulatory system; Z90.49 Acquired absence of other specified parts of digestive tract; Z72.89 Other problems related to lifestyle; Z81.8 Family history of other mental and behavioral disorders; Z79.01 Long term (current) use of anticoagulants
CPT/HCPCS: 36415; 36600; 70450; 70551; 71045; 71046; 71250; 76604; 80048; 80053; 81003; 81015; 82042; 82803; 82945; 83605; 83615; 83735; 83880; 83986; 84157; 84311; 84443; 84484; 85025; 87040; 87070; 87086; 87205; 87641; 88112; 89051; 93005; 93306; 94640; 94660; 99285; A9270-GY; G8978-GP-CI; G8979-GP-CI; G8980-GP-CI; J1940; J3475

== ENCOUNTER 2018-10-02 23:59 | Emergency (ER) | payer MEDICARE ==
--- NOTE | 2018-10-03 01:20 | ED ---
Throat Pain/Nasal Congestion - HPI Summary HPI Summary: Patient complains of right ear pain starting last night. Denies purulent discharge, hearing change, fever, FERNANDES, sore throat, cough, CP, SOB, N/V/V abdominal pain, change in urine, change in BM. - History of Current Complaint Chief Complaint: EDEarPain Time Seen by Provider: 10/03/18 01:10 Hx Obtained From: Patient Onset/Duration: Sudden Onset, Lasting Hours Severity: Moderate Associated Signs And Symptoms: Positive: Negative Cough: None - Allergies/Home Medications Allergies/Adverse Reactions: Allergies Allergy/AdvReac Type Severity Reaction Status Date / Time tomato Allergy Swelling Verified 09/18/18 13:29 Of Face,Lips,& Throat PMH/Surg Hx/FS Hx/Imm Hx Endocrine/Hematology History: Reports: Hx Diabetes Denies: Hx Anticoagulant Therapy, Hx Thyroid Disease, Hx Anemia, Hx Unexplained Bleeding Cardiovascular History: Reports: Hx Aneurysm - CEREBRAL ANEURYSM WITH CLIP, Hx Angina, Hx Congestive Heart Failure, Hx Deep Vein Thrombosis, Hx Hypercholesterolemia - HLD, Hx Hypertension, Other Cardiovascular Problems/ Disorders - murmur Denies: Hx Angioplasty, Hx Auto Implanted Cardiovert Defib, Hx Cardiac Arrest , Hx Cardiomegaly, Hx Coronary Artery Disease, Hx Hypotension, Hx Pacemaker/ICD , Hx Peripheral Vascular Disease, Hx Rheumatic Fever, Hx Valvular Heart Disease Respiratory History: Reports: Hx Chronic Obstructive Pulmonary Disease (COPD), Hx Pneumonia, Other Respiratory Problems/Disorders - HX INTUBATION 2013 W/FLU A Denies: Hx Asthma, Hx Chronic Bronchitis, Hx Pleural Effusion, Hx Pulmonary Edema, Hx Pulmonary Embolism, Hx Seasonal Allergies, Hx Sleep Apnea GI History: Reports: Hx Gall Bladder Disease, Hx Gastroesophageal Reflux Disease - TAKES OMEPRAZOLE, Hx Ulcer - GI, Other GI Disorders - BARRETTS ESOPHAGUS Denies: Hx Cirrhosis, Hx Diverticulosis, Hx Gastrointestinal Bleed, Hx Irritable Bowel History: Reports: Hx Kidney Stones - 2 WEEKS AGO, Hx Renal Disease - URINARY SEPSIS, Other Problems/Disorders - RENAL INSUFF Denies: Hx Dialysis Musculoskeletal History: Reports: Hx Arthritis, Hx Back Problems, Hx Bursitis, Other Musculoskeletal History - hernia Sensory History: Reports: Hx Cataracts, Hx Contacts or Glasses, Hx Hearing Aid Opthamlomology History: Reports: Hx Cataracts, Hx Contacts or Glasses Neurological History: Reports: Hx Seizures, Other Neuro Impairments/Disorders - CEREBRAL ANEURYSM, NUCLEAR MEDICAL TECH shunt Denies: Hx Dementia, Hx Developmental Delay, Hx Headaches, Hx Migraine, Hx Nerve Disease, Hx Spinal Cord Injury, Hx Transient Ischemic Attacks (TIA) Psychiatric History: Denies: Hx Panic Disorder, Hx Substance Abuse - Surgical History Surgery Procedure, Year, and Place: NUCLEAR MEDICAL TECH SHUNT 2002- PER [place] SCAN W/O XRAYS , NON-PROGRAMMABLE. LUMBAR LAMINECTOMY. CHOLECYSTECTOMY. CEREBRAL ANEURYSM CLIPPING 2002- CLEARED ON PREV MRI IN 2011, OP REPORT SCANNED INTO PACS. MULTIPLE TOE SURGERIES. PICC LINE 2013. HYSTERECTOMY Hx Anesthesia Reactions: No - Immunization History Date of Tetanus Vaccine: Unknown Date of Influenza Vaccine: Unk Infectious Disease History: No Infectious Disease History: Denies: Hx Hepatitis, Hx Human Immunodeficiency Virus (HIV), Hx Shingles, Hx Tuberculosis, Traveled Outside the [place] in Last 30 Days - Family History Known Family History: Positive: Cardiac Disease - CAD, Other - neg: Breast CA - Social History Alcohol Use: Rare Hx Substance Use: No Substance Use Type: Reports: None Hx Tobacco Use: Yes Smoking Status (MU): Heavy Every Day Tobacco Smoker Type: Cigarettes Amount Used/How Often: 1ppd Length of Time of Smoking/Using Tobacco: 40years Have You Smoked in the Last Year: Yes Review of Systems Constitutional: Negative Eyes: Negative Positive: Ear Ache Cardiovascular: Negative Respiratory: Negative Gastrointestinal: Negative Genitourinary: Negative Musculoskeletal: Negative Skin: Negative Neurological: Negative Psychological: Normal All Other Systems Reviewed And Are Negative: Yes Physical Exam - Summary Physical Exam Summary: Minor erythema in right ear canal. Patient tender with insertion of the otoscope. Earwax was removed by nurse so presence of purulence unknown. ENT exam otherwise unremarkable. Triage Information Reviewed: Yes Vital Signs On Initial Exam: Initial Vitals Temp Pulse Resp BP Pulse Ox 97.1 F 51 18 119/62 95 10/03/18 00:22 10/03/18 00:22 10/03/18 00:22 10/03/18 00:22 10/03/18 00:22 Vital Signs Reviewed: Yes Appearance: Positive: Well-Appearing Skin: Positive: Warm Head/Face: Positive: Normal Head/Face Inspection Eyes: Positive: Normal ENT: Positive: Other Neck: Positive: Supple Respiratory/Lung Sounds: Positive: Clear to Auscultation Cardiovascular: Positive: Normal Abdomen Description: Positive: Nontender Musculoskeletal: Positive: Normal Neurological: Positive: Normal Psychiatric: Positive: Normal AVPU Assessment: Alert - Vanesa Coma Scale Best Eye Response: 4 - Spontaneous Best Motor Response: 6 - Obeys Commands Best Verbal Response: 5 - Oriented Coma Scale Total: 15 Diagnostics - Vital Signs Vital Signs Temp Pulse Resp BP Pulse Ox 10/03/18 00:22 97.1 F 51 18 119/62 95 - Laboratory Lab Statement: Any lab studies that have been ordered have been reviewed, and results considered in the medical decision making process. EENT Course/Dx - Course Course Of Treatment: Patient complains of right ear pain starting last night. Denies purulent discharge, hearing change, fever, FERNANDES, sore throat, cough, CP, SOB, N/V/V abdominal pain, change in urine, change in BM. Physical exam: Minor erythema in right ear canal. Patient tender with insertion of the otoscope. Earwax was removed by nurse so presence of purulence unknown. ENT exam otherwise unremarkable. Vital signs unremarkable. Trial of Ciprodex and oral antibiotics. Patient has existing Rx for tramadol. Follow up with ENT if symptoms persist. Patient understands and improves a plan. - Diagnoses Provider Diagnoses: Otitis externa, Otitis media Discharge - Sign-Out/Discharge Documenting (check all that apply): Patient Departure Patient Received Moderate/Deep Sedation with Procedure: No - Discharge Plan Condition: Stable Disposition: HOME Prescriptions: Amoxicillin/Clavulanate TAB* [Augmentin TAB 875*] 875 mg PO BID #20 tab Patient Education Materials: Otitis Externa (ED), Ear Infection (ED) Referrals: Morgan Mccarthy MD [Primary Care Provider] - Olman Leblanc MD [Medical Doctor] - Additional Instructions: 4 drops of antibiotic solution in right ear twice a day for 7 days. Take oral antibiotics as directed. Take tramadol for ear pain. If ear pain persists despite antibiotic treatment follow-up with swine genetics researcher Dr. Leblanc for further evaluation. Return to the ED for any new or worsening symptoms. - Billing Disposition and Condition Condition: STABLE Disposition: Home
[2018-10-03] MEDS ORDERED: Docusate LIQ* 100 MG/10 ML UDC PO PRN (01:57)
[2018-10-03] MEDS ORDERED: Docusate LIQ* 100 MG/10 ML UDC ONE (02:07)
[2018-10-03] MEDS ORDERED: Ciproflox/Dexameth OTIC.SUSP* 7.5 ML BTL RIGHT EAR ONE (02:28)
[2018-10-03] MEDS ORDERED: Amoxicillin/Clavulanate TAB* 875 MG PO ONE (02:29)
[2018-10-03] MEDS ORDERED: oxyCODONE TAB* 5 MG TAB PO ONE (02:32)
[2018-10-03 03:04] VITALS: BP 128/76
== END 2018-10-03 03:03 | disposition home or self-care (01) ==
LOC: ED 23:59
DX: H60.91 Unspecified otitis externa, right ear (principal); H66.91 Otitis media, unspecified, right ear; H92.01 Otalgia, right ear; E11.9 Type 2 diabetes mellitus without complications; Z86.79 Personal history of other diseases of the circulatory system; F17.210 Nicotine dependence, cigarettes, uncomplicated; J44.9 Chronic obstructive pulmonary disease, unspecified; K21.9 Gastro-esophageal reflux disease without esophagitis
CPT/HCPCS: 99283; A9270-GY

== ENCOUNTER 2019-02-23 12:23 | Inpatient (IN) | payer MEDICARE ==
[2019-02-23] MEDS ORDERED: traMADol TAB* 50 MG PO ONE (12:33)
[2019-02-23 12:59] LABS: ABS Basophils 0.1 10^3/ul (0-0.2); ABS Eosinophils 0.1 10^3/ul (0-0.6); ABS Lymphocytes 0.4 10^3/ul (1.0-4.8); ABS Monocytes 0.4 10^3/ul (0-0.8); ABS Neutrophils 7.1 10^3/ul (1.5-7.7); Eosinophil % 1.4 %; Hematocrit 42 % (35-47); Hemoglobin 13.8 g/dL (12.0-16.0); Lymphocyte % 4.5 %; Mean Corpuscular HGB Conc 33 g/dL (31-36); Mean Corpuscular Hemoglobin 31 pg (27-31); Mean Corpuscular Volume 93 fL (80-97); Mean Platelet Volume 7.5 fL (7.4-10.4); Nucleated Red Blood Cells % 0.1; Platelet Count 159 10^3/uL (150-450); Red Blood Count 4.44 10^6 /uL (3.70-4.87); Red Cell Distribution Width 15 % (10-15); White Blood Count 8.2 10^3/uL (3.5-10.8)
[2019-02-23] MEDS ORDERED: NS 0.9% 1000 ML** 1,000 ML IV ONE (13:00)
[2019-02-23 13:17] LABS: Albumin 3.7 g/dL (3.2-5.2); Albumin/Globulin Ratio 1.2 (1-3); BUN/Creatinine Ratio 18.3 (8-20); Calcium 9.2 mg/dL (8.6-10.3); EGFR African American 43.9 (>60); EGFR Non-African American 36.3 (>60); Potassium 4.4 mmol/L (3.5-5.0); Total Bilirubin 1.3 mg/dL (0.2-1.0); Total Protein 6.7 g/dL (6.4-8.9)
[2019-02-23 13:18] LABS: Troponin I 0.03 ng/mL (<0.04)
[2019-02-23] MEDS ORDERED: Clotrimazole 1% CREAM* 30 GM TOPICAL ONE (13:33)
--- OUTSIDE RECORDS SUMMARY | 2019-02-23 13:46 | XMS REPORT | Continuity of Care Document ---
:1945 External Reference #:[id number] Author Name Coretta Gruber M.D. 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 Onset: 11/16/2012 Electrocardiogram abnormal Coretta Gruber M.D. Onset: 01/27/2013 Benign essential hypertension Coretta Gruber M.D. Onset: 01/27/2013 Dyspnea Coretta Gruber M.D. Onset: 01/27/2013 Mitral valve disorder Coretta Gruber M.D. Onset: 01/27/2013 Heart murmur Coretta Gruber M.D. Onset: 01/27/2013 Rheumatic disease of tricuspid valve Coretta Gruber M.D. Onset: 01/27 Tachycardia Coretta Gruber M.D. Onset: 01/27/2013 Chest pain Coretta Gruber M.D. Onset: 01/27/2013 Edema Coretta Gruber M.D. Onset: 05/05/2013 Tobacco user Kathy Green MD Onset: 12/20/2014 Disturbance in sleep behavior Katyh Green MD Onset: 12/20/2014 Obesity Kathy Green MD Onset: 12/20/2014 Obstructive sleep apnea syndrome Kathy Green MD Onset: 02/20/2015 Chronic obstructive lung disease Kathy Green MD Onset: 05/09/2015 Disorder of lung Kathy Green MD Onset: 05/09/2015 Hypoxemia Kathy Green MD Onset: 03/05/2016 Encounter for screening for malignant Kathy Green MD Onset: 11/04/2016 neoplasm of respiratory organs Social History Type Date Description Comments Sex Unknown ETOH Use Drinks Alcoholic Beverages at [place] Rarely Tobacco Use Start: Unknown Patient is a current smoker, 1/4 PPD smokes every day Recreational Drug Use Denies Drug Use Smoking Status Reviewed: 01/20/19 Patient is a current smoker, 1/4 PPD smokes every day Exercise Type/Frequency Does not exercise Allergies, Adverse Reactions, Alerts Description No Known Drug Allergies Medications Active Medications SIG Qnty Indications Ordering Date Provider Eliquis 1 by mouth twice 180tabs Delores Wynne, 11/17/2018 5mg Tablets a day N.P. Botox injection per 1units Sergio SRj 05/18/[address]Gaffney bran Poe M.D. Rec 90 days Symbicort inhale two puffs 33units Kathy Green, 12/22/2017 80-4.5mcg/Act by mouth twice MD Aerosol daily Rx please use o2 at 1units R09.02 Kathy Green, 03/05/2016 Misc 2l/min at night MD and 2L/min during the day Pt states she only uses at night Cardizem CD 1 by mouth once 90caps R06.00 Delores Wynne, 06/02/2014 120mg Caps ER in in the morning N.P. 24HR Furosemide 2 po qam 30tabs Qutaybeh S. 20mg Tablets Virgilio Gruber Acetaminophen prn Unknown Omeprazole 1 by mouth twice Unknown 20mg Capsules daily DR Tuyet Roca As Carolann Dixon C ,CFNP 62.5mcg/Inh Aerosol Alendronate Sodium once a week Fabio, 70mg MD Morgan Tablets Proair HFA 2 puffs every 4 Unknown 108(90Base) hours as needed mcg/Act Aerosol Tramadol HCL 1 tablets by Unknown 50mg Tablets mouth every 6 hours as needed pain Atenolol 1 by mouth every Unknown 25mg Tablets day Citalopram 2 by mouth every Unknown Hydrobromide day 20mg Tablets Metolazone take one tablet Unknown 5mg Tablets 1/2 hour before each lasix twice a day Cholestyramine Light 1 pkt bid Unknown 4gm Packet Medications Administered in Office Medication SIG Qnty Indications Ordering Provider Date Injection Onabotulinumtoxin Sergio Frye M.D. 07/03/2018 1 Unit Injection Injection Onabotulinumtoxin Sergio Frye M.D. 02/18/2018 1 Unit Injection Injection Onabotulinumfuentesxin Sergio Frye M.D. 11/17/2017 1 Unit Injection Injection Onabotulinumtoxin Sergio Frye M.D. 08/06/2017 1 Unit Injection Injection Onabotulinumfuentesxin Sergio Frye M.D. 08/28/2016 1 Unit Injection Injection Kongabotulinumfuentesxin Sergio Frye M.D. 08/28/2016 1 Unit Injection Injection Kongabotulinumfuentesxin Sergio Frye M.D. 08/28/2016 1 Unit Injection Injection Onabotulinumtoxin Sergio Frye M.D. 05/30/2016 1 Unit Injection Injection Whitneyotulinumfuentesxin Sergio Frye M.D. 02/26/2016 1 Unit Injection Injection Kongabotulinumfuentesxin Sergio Frye M.D. 06/27/2015 1 Unit Injection Injection Whitneyotkathyxin Sergio Frye M.D. 03/08/2015 1 Unit Injection Injection Onabotulinumfuentesxin Sergio Frye M.D. 12/06/2014 1 Unit Injection Injection Kongabotulinumfuentesxin Sergio Frye M.D. 08/23/2014 1 Unit Injection Injection Onabotulinumtoxin Sergio Frye M.D. 05/24/2014 1 Unit Injection Injection Onabotulinumtoxin Sergio Frye M.D. 02/16/2014 1 Unit Injection Injection Onabotulinumfuentesxin Sergio Frye M.D. 11/09/2013 1 Unit Injection Injection Onabotulinumtoxin Sergio Frye M.D. 08/10/2013 1 Unit Injection Injection Onabotulinumtoxin Sergio Frye M.D. 05/12/2013 1 Unit Injection Injection Onabotulinumtoxin Sergio Frye M.D. 02/09/2013 1 Unit Injection Injection Onabotulinumfuentesxin Sergio Frye M.D. 11/03/2012 1 Unit Injection Injection Kongabotulinumfuentesxin Sergio Frye M.D. 07/29/2012 1 Unit Injection Injection Onabotulinumtoxin Sergio Frye M.D. 07/29/2012 1 Unit Injection Injection Onabotulinumtoxin Sergio Frye M.D. 04/28/2012 1 Unit Injection Injection Onabotulinumfuentesxin Sergio Frye M.D. 04/28/2012 1 Unit Injection Injection Onabotulinumtoxin Sergio Frye M.D. 01/22/2012 1 Unit Injection Injection Onabotulinumtoxin Sergio Frye M.D. 01/22/2012 1 Unit Injection Immunizations CPT Code Status Date Vaccine Lot # [id number] Given 02/26/2016 Influ Virus Vaccine, Quadrivalent, Split Virus, Im [id number] Fluzone not PF [id number] Given 02/20/2015 Fluvirin Im [id number] And Older Vital Signs Date Vital Result Comment 01/20/2019 4:30pm Height 62 inches 5'2" Heart Rate 72 /min radial, regular BP Systolic Sitting 112 mmHg LA, reg cuff BP Diastolic Sitting 68 mmHg LA, reg cuff Ejection Fraction 60%-65% echo 09/21/18 11/03/2018 11:11am Height 62 inches 5'2" Heart Rate 52 /min left radial BP Systolic Sitting 132 mmHg LA, reg BP Diastolic Sitting 74 mmHg LA, reg O2 % BldC Oximetry 95 % room air Ejection Fraction 60-65% echo 09/21/18 Results Description No Information Available Procedures Date Code Description Status 11/03/2018 85091 EKG Tracing & Interpretation Completed 09/23/2018 16453 Thoracentesis W/ Img Guidance Completed 09/21/2018 00144 ECHO Transthorasic Realtime 2D W Doppler & Color Flow Completed Hosp 09/18/2018 42255 EKG, Interpretation Only Completed 04/09/2001 [id number] Diabetic Retinal Eye Exam Completed Medical Devices Description No Information Available Encounters Type Date Location Provider Dx Diagnosis Office Visit 11/03/2018 [facility] Delores Doss Foster, I11.0 Hypertensive heart 11:00a N.P. disease with heart failure I50.9 Heart failure, unspecified I48.2 Chronic atrial fibrillation J90 Pleural effusion, not elsewhere classified Z72.0 Tobacco use I27.20 Pulmonary hypertension, unspecified Office Visit 09/26/2018 8:34a [facility] Rodrigo J96.21 Acute and chronic Assoc,pc Anderson Guerrero. respiratory Hospitalists failure with hypoxia I11.0 Hypertensive heart disease with heart failure I50.9 Heart failure, unspecified I48.2 Chronic atrial fibrillation Office Visit 09/25/2018 2:11p Pulmonology And Kathy J44.1 Chronic Sleep Services Of MD Norma obstructive [facility] pulmonary disease w (acute) exacerbation J98.11 Atelectasis J90 Pleural effusion, not elsewhere classified Office Visit 09/25/2018 8:33a [facility] Zhane I50.9 Heart failure, Assoc,pc Sheldon Al unspecified Hospitalists J96.21 Acute and chronic respiratory failure with hypoxia I11.0 Hypertensive heart disease with heart failure I48.91 Unspecified atrial fibrillation Office Visit 09/24/2018 2:10p Pulmonology And Kathy J44.1 Chronic [facility] Of MD Norma obstructive Diagnostic Cardiac Sonographer pulmonary disease w (acute) exacerbation J98.11 Atelectasis J90 Pleural effusion, not elsewhere classified Office Visit 09/24/2018 8:32a [facility] I50.9 Heart failure , Assoc,pc BREA Chow unspecified Hospitalists J96.21 Acute and chronic respiratory failure with hypoxia E83.42 Hypomagnesemia I48.91 Unspecified atrial fibrillation Office Visit 09/23/2018 2:09p Pulmonology And Kathy J90 Pleural effusion, Sleep Services Of MD Norma not elsewhere Diagnostic Cardiac Sonographer classified R42 Dizziness and giddiness J44.9 Chronic obstructive pulmonary disease, unspecified J98.11 Atelectasis Z79.01 [facility] (current) use of anticoagulants Office Visit 09/23/2018 8:32a [facility] Kathy Bola, I50.9 Heart failure, Assoc,pc [employer]ILD[employer] SUPERINTENDENT unspecified Hospitalists J96.21 Acute and chronic respiratory failure with hypoxia I48.91 Unspecified atrial fibrillation I11.0 Hypertensive heart disease with heart failure Office Visit 09/22/2018 8:31a [facility] Kathy Bola, I50.9 Heart failure, Assoc,pc [employer]ILD[employer] SUPERINTENDENT unspecified Hospitalists J96.21 Acute and chronic respiratory failure with hypoxia I48.91 Unspecified atrial fibrillation I11.0 Hypertensive heart disease with heart failure J44.9 Chronic obstructive pulmonary disease, unspecified Office Visit 09/22/2018 8:00a Wound Care Lis Willoughby S81.801A Unspecified open Center [facility], BUILDING [employer]STRUCTION SUPERINTENDENT wound, right [facility] lower leg, initial encounter E11.69 Type 2 diabetes mellitus with other specified complication R23.8 Other skin changes Z66 Do not resuscitate Office Visit 09/21/2018 8:31a [facility] Kathy Bola, I50.9 Heart failure, Assoc,pc [employer]ILD[employer] SUPERINTENDENT unspecified Hospitalists I11.0 Hypertensive heart disease with heart failure J96.21 Acute and chronic respiratory failure with hypoxia I48.91 Unspecified atrial fibrillation Office Visit 09/20/2018 [facility] I50.9 Heart failure, 8:31a Assoc,pc MD Mckayla unspecified Hospitalists R42 Dizziness and giddiness R00.1 Bradycardia, unspecified I48.91 Unspecified atrial fibrillation J44.9 Chronic obstructive pulmonary disease, unspecified Office Visit 09/19/2018 8:29a [facility] R42 Dizziness and Assoc,pc MD Mckayla giddiness Hospitalists J44.9 Chronic obstructive pulmonary disease, unspecified I48.91 Unspecified atrial fibrillation I50.9 Heart failure, unspecified Office Visit 09/18/2018 [facility] J96.21 Acute and chronic 8:30a Assoc,pc Suki, BUILDING [employer]STRUCTION SUPERINTENDENT respiratory Hospitalists failure with hypoxia I48.91 Unspecified atrial fibrillation R42 Dizziness and giddiness J44.9 Chronic obstructive pulmonary disease, unspecified N18.9 Chronic kidney disease, unspecified Assessments Date Code Description Provider 01/20/2019 Z72.0 Tobacco use Coretta Gruber M.D. 01/20/2019 I27.20 Pulmonary hypertension, unspecified Coretta Gruber M.D. 01/20/2019 J44.1 Chronic obstructive pulmonary Coretta Gruber M.D. disease with (acute) exacerbation 01/20/2019 I48.91 Unspecified atrial fibrillation Coretta Gruber M.D. 01/20/2019 R06.02 Shortness of breath Coretta Gruber M.D. 11/03/2018 R94.31 Abnormal electrocardiogram [ECG] Coretta Gruber M.D. [EKG] 11/03/2018 I11.0 Hypertensive heart disease with Delores S. Ricci, N.P. heart failure 11/03/2018 I50.9 Heart failure, unspecified Delores S. Foster, N.P. 11/03/2018 I48.2 Chronic atrial fibrillation Delores S. Ricci, N.P. 11/03/2018 J90 Pleural effusion, not elsewhere Delores S. Foster, N.P. classified 11/03/2018 Z72.0 Tobacco use Delores S. Foster, N.P. 11/03/2018 I27.20 Pulmonary hypertension, unspecified Delores S. Foster, N.P. 09/26/2018 J96.21 Acute and chronic respiratory Rodrigo Guerrero M.D. failure with hypoxia 09/26/2018 I11.0 Hypertensive heart disease with Rodrigo Guerrero M.D. heart failure 09/26/2018 I50.9 Heart failure, unspecified Rodrigo Guerrero M.D. 09/26/2018 I48.2 Chronic atrial fibrillation Rodrigo Guerrero M.D. 09/25/2018 J44.1 Chronic obstructive pulmonary Kathy Green MD disease w (acute) exacerbation 09/25/2018 I50.9 Heart failure, unspecified Zhane Al, D.O. 09/25/2018 J98.11 Leticia Green MD 09/25/2018 J96.21 Acute and chronic respiratory Zhane Al, D.O. failure with hypoxia 09/25/2018 J90 Pleural effusion, not elsewhere Kathy Green MD classified 09/25/2018 I11.0 Hypertensive heart disease with Zhane Servando, D.O. heart failure 09/25/2018 I48.91 Unspecified atrial fibrillation Zhane Al D.O. 09/24/2018 J44.1 Chronic obstructive pulmonary Kathy Green MD disease w (acute) exacerbation 09/24/2018 I50.9 Heart failure, unspecified Macarena Shortle, BUILDING [employer]STRUCTION SUPERINTENDENT 09/24/2018 J98.11 Yaseminlecmihai Green MD 09/24/2018 J96.21 Acute and chronic respiratory Macarena Shortle, BUILDING [employer]STRUCTION SUPERINTENDENT failure with hypoxia 09/24/2018 J90 Pleural effusion, not elsewhere Kathy Green MD classified 09/24/2018 E83.42 Hypomagnesemia Macarena Shortle, BUILDING [employer]STRUCTION SUPERINTENDENT 09/24/2018 I48.91 Unspecified atrial fibrillation Macarena Shortle, BUILDING [employer]STRUCTION SUPERINTENDENT 09/23/2018 J90 Pleural effusion, not elsewhere Kathy Green MD classified 09/23/2018 R42 Dizziness and giddiness Kathy Green MD 09/23/2018 I50.9 Heart failure, unspecified Kathy Bola, BUILDING [employer]STRUCTION SUPERINTENDENT 09/23/2018 J44.9 Chronic obstructive pulmonary Kathy Green MD disease, unspecified 09/23/2018 J96.21 Acute and chronic respiratory Kathy Bola, BUILDING [employer]STRU[employer] SUPERINTENDENT failure with hypoxia 09/23/2018 J98.11 Atelecmihai Green MD 09/23/2018 I48.91 Unspecified atrial fibrillation Kathy Bola, BUILDING [employer] SUPERINTENDENT 09/23/2018 Z79.01 [facility] (current) use of Kathy Green MD anticoagulants 09/23/2018 I11.0 Hypertensive heart disease with Kathy Bola, BUILDING [employer] SUPERINTENDENT heart failure 09/22/2018 S81.801A Unspecified open wound, right lower Lis Stover, BUILDING [employer]STRUCTION SUPERINTENDENT leg, initial encounter 09/22/2018 I50.9 Heart failure, unspecified Kathy Bola, BUILDING [employer]STRUCTION SUPERINTENDENT 09/22/2018 J96.21 Acute and chronic respiratory Kathy Bola, BUILDING [employer]STRUCTION SUPERINTENDENT failure with hypoxia 09/22/2018 E11.69 Type 2 diabetes mellitus with other Lis Willoughby Stover, BREA specified complication 09/22/2018 R23.8 Other skin changes Lis Stover, BUILDING [employer]STRUCTION SUPERINTENDENT 09/22/2018 I48.91 Unspecified atrial fibrillation Kathy Bola, BUILDING [employer]STRUCTION SUPERINTENDENT 09/22/2018 Z66 Do not resuscitate Lis Stover, BUILDING [employer]STRUCTION SUPERINTENDENT 09/22/2018 I11.0 Hypertensive heart disease with Kathy Bola, BUILDING [employer]STRU[employer] SUPERINTENDENT heart failure 09/22/2018 J44.9 Chronic obstructive pulmonary Kathy Bola, BUILDING [employer]STRUCTION SUPERINTENDENT disease, unspecified 09/21/2018 R06.02 Shortness of breath Sukumar Meza M.D. 09/21/2018 I50.9 Heart failure, unspecified Kathy Bola, BUILDING [employer]STRUCTION SUPERINTENDENT 09/21/2018 I11.0 Hypertensive heart disease with Kathy Bola, BUILDING [employer]STRUCTION SUPERINTENDENT heart failure 09/21/2018 J96.21 Acute and chronic respiratory Kathy Bola, BUILDING [employer]STRUCTION SUPERINTENDENT failure with hypoxia 09/21/2018 I48.91 Unspecified atrial fibrillation Kathy Bola, BUILDING [employer]STRUCTION SUPERINTENDENT 09/20/2018 I50.9 Heart failure, unspecified Jaqueline Block MD 09/20/2018 R42 Dizziness and giddiness Jaqueline Block MD 09/20/2018 R00.1 Bradycardia, unspecified Jaqueline Block MD 09/20/2018 I48.91 Unspecified atrial fibrillation Jaqueline Block MD 09/20/2018 J44.9 Chronic obstructive pulmonary Jaqueline Block MD disease, unspecified 09/19/2018 R42 Dizziness and gijudithiness Jaqueline Block MD 09/19/2018 J44.9 [place] obstructive pulmonary Jaqueline Block MD disease, unspecified 09/19/2018 I48.91 Unspecified atrial fibrillation Jaqueline Block MD 09/19/2018 I50.9 Heart failure, unspecified Jaqueline Block MD 09/18/2018 R94.31 Abnormal electrocardiogram [ECG] Olman Hernández M.D. [EKG] 09/18/2018 J96.21 Acute and chronic respiratory Taniyamicah Cohn NP failure with hypoxia 09/18/2018 I48.91 Unspecified atrial fibrillation Taniya Ocamponey, BUILDING [employer]STRUCTION SUPERINTENDENT 09/18/2018 R42 Dizziness and giddiness Taniya Suki, BUILDING [employer]STRUCTION SUPERINTENDENT 09/18/2018 J44.9 Chronic obstructive pulmonary Taniya Cohn NP disease, unspecified 09/18/2018 N18.9 Chronic kidney disease, unspecified Taniyamicah Cohn NP Plan of Treatment Future Appointment(s):03/05/2019 11:30 am - Sergio Poe M.D. at [id number]/02/2019 3:30 pm - Kathy Green MD at [facility]01/20/2019 - Coretta Gruber M.D.Z72.0 Tobacco useI27.20 Pulmonary hypertension, qxgqgusqacvA37.1 Chronic obstructive pulmonary disease with (acute) kwfovnhgbihxE46.91 Unspecified atrial fibrillationFollow up:one yr ovR06.02 Shortness of breath Functional Status Description No Information Available Mental Status Description No Information Available Referrals Description No Information Available
[2019-02-23 13:47] LABS: INR 1.71 (0.82-1.09)
[2019-02-23 14:05] LABS: Magnesium 0.9 mg/dL (1.9-2.7)
[2019-02-23] MEDS ORDERED: Magnesium Sulf 4 GM/100 ML IV* 4,000 MG/100 ML BAG IVPB ONE (14:14)
[2019-02-23] MEDS ORDERED: Piperacillin/Tazobac ADVAN(*) 3.375 GM in NS 0.9% 100 ML* 100 ML IVPB ONE (14:18)
--- NOTE | 2019-02-23 14:35 | ED ---
HPI Cardiac - HPI Summary HPI Summary: This patient is a 73-year-old female with a history of COPD, hypertension, atrial fibrillation and diabetes currently on xarelto and atenolol presenting to the ED after a fall last night. Patient states she is unsure how she fell, but now has bruising to the left side of her face. Denies any headache or other signs of trauma. She does endorse bilateral knee pain with some spasms to the L lower ext. Denies any worsening SOB and states she has chronic COPD but does not use O2 at home. She does endorse some weakness and states she is unstable when she walks. Denies other symptoms including abd pain, urinary symptoms, back pain, chest pain. Pt lives with sister at home. Uses walker and cane for ambulation - History of Current Complaint Chief Complaint: EDFall Stated Complaint: BILAT LEG PAIN PER EMS Time Seen by Provider: 02/23/19 12:25 Hx Obtained From: Patient Onset/Duration: Started Hours Ago Timing: Constant Initial Severity: Moderate Current Severity: Moderate Pain Intensity: 6 Pain Scale Used: 0-10 Numeric Aggravating Factor(s): Nothing Alleviating Factor(s): Nothing - Additional Pertinent History Primary Care Physician: [id number] - Allergy/Home Medications Allergies/Adverse Reactions: Allergies Allergy/AdvReac Type Severity Reaction Status Date / Time tomato Allergy Swelling Verified 09/18/18 13:29 Of Face,Lips,& Throat Home Medications: Home Medications Albuterol inh POWDER (NF) [Proair Respiclick] 2 puff INH Q4H PRN 02/23/19 [ History Confirmed 02/23/19] Apixaban* [Eliquis*] 5 mg PO BID 02/23/19 [History Confirmed 02/23/19] Atenolol TAB* [Tenormin TAB* 25 MG] 25 mg PO BID 02/23/19 [History Confirmed 09/06] Citalopram TAB* [Celexa TAB*] 40 mg PO DAILY 02/23/19 [History Confirmed ] Cyanocobalamin TAB* [Vitamin B12 TAB*] 1,000 mcg PO DAILY 02/23/19 [History Confirmed 02/23/19] Ferrous Sulfate TAB* 325 mg PO DAILY 02/23/19 [History Confirmed 02/23/19] Losartan Potassium 100 mg PO DAILY 02/23/19 [History Confirmed 02/23/19] Metolazone TAB* [Zaroxolyn TAB*] 5 mg PO DAILY 02/23/19 [History Confirmed 02/23] Montelukast Sodium TAB* [Singulair 10 MG TAB*] 10 mg PO DAILY 02/23/19 [History Confirmed 02/23/19] Silver Sulfadiazine [Silvadene] 1 applic TOPICAL DAILY 02/23/19 [History Confirmed 02/23/19] Urea-C40 Cream 40% 1 applic TOPICAL DAILY 02/23/19 [History Confirmed 02/23/19] dilTIAZem HCl [Cartia Xt] 120 mg PO DAILY 02/23/19 [History Confirmed 02/23/19] PMH/Surg Hx/FS Hx/Imm Hx Previously Healthy: No - diabetes, a-fib Endocrine/Hematology History: Reports: Hx Diabetes Denies: Hx Anticoagulant Therapy, Hx Thyroid Disease, Hx Anemia, Hx Unexplained Bleeding Cardiovascular History: Reports: Hx Aneurysm - CEREBRAL ANEURYSM WITH CLIP, Hx Angina, Hx Congestive Heart Failure, Hx Deep Vein Thrombosis, Hx Hypercholesterolemia - HLD, Hx Hypertension, Other Cardiovascular Problems/ Disorders - murmur Denies: Hx Angioplasty, Hx Auto Implanted Cardiovert Defib, Hx Cardiac Arrest , Hx Cardiomegaly, Hx Coronary Artery Disease, Hx Hypotension, Hx Pacemaker/ICD , Hx Peripheral Vascular Disease, Hx Rheumatic Fever, Hx Valvular Heart Disease Respiratory History: Reports: Hx Chronic Obstructive Pulmonary Disease (COPD), Hx Pneumonia, Other Respiratory Problems/Disorders - HX INTUBATION 2013 W/FLU A Denies: Hx Asthma, Hx Chronic Bronchitis, Hx Pleural Effusion, Hx Pulmonary Edema, Hx Pulmonary Embolism, Hx Seasonal Allergies, Hx Sleep Apnea GI History: Reports: Hx Gall Bladder Disease, Hx Gastroesophageal Reflux Disease - TAKES OMEPRAZOLE, Hx Ulcer - GI, Other GI Disorders - BARRETTS ESOPHAGUS Denies: Hx Cirrhosis, Hx Diverticulosis, Hx Gastrointestinal Bleed, Hx Irritable Bowel History: Reports: Hx Kidney Stones - 2 WEEKS AGO, Hx Renal Disease - URINARY SEPSIS, Other Problems/Disorders - RENAL INSUFF Denies: Hx Dialysis Musculoskeletal History: Reports: Hx Arthritis, Hx Back Problems, Hx Bursitis, Other Musculoskeletal History - hernia Sensory History: Reports: Hx Cataracts, Hx Contacts or Glasses, Hx Hearing Aid Opthamlomology History: Reports: Hx Cataracts, Hx Contacts or Glasses Neurological History: Reports: Hx Seizures, Other Neuro Impairments/Disorders - CEREBRAL ANEURYSM, 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 LUMBAR LAMINECTOMY. CHOLECYSTECTOMY. CEREBRAL ANEURYSM CLIPPING 2002- CLEARED ON PREV MRI IN 2011, OP REPORT SCANNED INTO PACS. MULTIPLE TOE SURGERIES. PICC LINE 2013. HYSTERECTOMY Hx Anesthesia Reactions: No - Immunization History Date of Tetanus Vaccine: Unknown Date of Influenza Vaccine: Unk Hx Pertussis Vaccination: Yes Immunizations Up to Date: Yes Infectious Disease History: No Infectious Disease History: Denies: Hx Hepatitis, Hx Human Immunodeficiency Virus (HIV), Hx Shingles, Hx Tuberculosis, Traveled Outside the [place] in Last 30 Days - Family History Known Family History: Positive: Cardiac Disease - CAD, Other - neg: Breast CA - Social History Occupation: Unemployed Lives: With Family Alcohol Use: Rare Alcohol Amount: "at [employer]" Hx Substance Use: No Substance Use Type: Reports: None Hx Tobacco Use: Yes Smoking Status (MU): Heavy Every Day Tobacco Smoker Type: Cigarettes Amount Used/How Often: 1ppd Length of Time of Smoking/Using Tobacco: 40years Have You Smoked in the Last Year: Yes Review of Systems Negative: Fever, Chills, Fatigue, Skin Diaphoresis Negative: Palpitations, Chest Pain Genitourinary: Negative Positive: no symptoms reported, see HPI Positive: Arthralgia - bilateral knee pain. 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 Non-Paretic Hand: Both Correctly Best Gaze (Only Horizontal Eye Movement): Normal Visual Field Testing: No Visual Loss Facial Paresis-Pt to Smile & Close Eyes or Grimace Symmetry: Normal/Symmetrical Motor Function - Right Arm: No Drift-Holds 10 Seconds Motor Function - Left Arm: No Drift-Holds 10 Seconds Motor Function - Right Leg: No Drift-Holds 10 Seconds Motor Function - Left Leg: No Drift-Holds 10 Seconds Limb Ataxia-Must be out of Proportion to Weakness Present: Absent Sensory (Use Pinprick to Test Arms/Legs/Trunk/Face): Normal Best Language (Describe Picture, Name Items): No Aphasia Extinction and Inattention: No Abnormality Physical Exam Triage Information Reviewed: Yes Vital Signs On Initial Exam: Initial Vitals Temp Pulse Resp BP Pulse Ox 97.1 F 135 24 175/147 84 02/23/19 12:30 02/23/19 12:30 02/23/19 12:30 02/23/19 12:30 02/23/19 12:30 Vital Signs Reviewed: Yes Appearance: Positive: Well-Nourished, Ill-Appearing Skin: Positive: Warm, Skin Color Reflects Adequate Perfusion, Other - intertrigo groinrash - pito Head/Face: Positive: Normal Head/Face Inspection Eyes: Positive: EOMI, MAGGIE, Conjunctiva Clear ENT: Negative: Pharynx normal, Tonsillar swelling, Tonsillar exudate Neck: Positive: Supple, Nontender, No Lymphadenopathy Respiratory/Lung Sounds: Positive: Decreased Breath Sounds, Rhonchi - throughout. Negative: Wheezes Cardiovascular: Positive: RRR, Pulses are Symmetrical in both Upper and Lower Extremities Abdomen Description: Positive: Nontender, No Organomegaly, Soft. Negative: CVA Tenderness (R), CVA Tenderness (L) Musculoskeletal: Positive: Normal, Strength/ROM Intact Neurological: Positive: Sensory/Motor Intact, Alert, Oriented to Person Place, Time, Other - spasms to the L lower ext Psychiatric: Positive: Normal, Affect/Mood Appropriate AVPU Assessment: Alert Procedures - Sedation Patient Received Moderate/Deep Sedation with Procedure: No Diagnostics - Vital Signs Vital Signs Temp Pulse Resp BP Pulse Ox 02/23/19 12:37 91 02/23/19 12:30 97.1 F 135 24 175/147 84 - Laboratory Lab Results: Lab Results 02/23/19 02/23/19 02/23/19 Range/Units 12:52 12:52 13:35 WBC 8.2 (3.5-10.8) 10^3/uL RBC 4.44 (3.70-4.87) 10^6 /uL Hgb 13.8 (12.0-16.0) g/dL Hct 42 (35-47) % MCV 93 (80-97) fL MCH 31 (27-31) pg MCHC 33 (31-36) g/dL RDW 15 (10-15) % Plt Count 159 (150-450) 10^3/uL MPV 7.5 (7.4-10.4) fL Neut % (Auto) 87.5 % Lymph % (Auto) 4.5 % [place] % (Auto) 5.4 % Eos % (Auto) 1.4 % Baso % (Auto) 1.2 % Absolute Neuts (auto) 7.1 (1.5-7.7) 10^3/ul Absolute Lymphs (auto) 0.4 L (1.0-4.8) 10^3/ul Absolute Monos (auto) 0.4 (0-0.8) 10^3/ul Absolute Eos (auto) 0.1 (0-0.6) 10^3/ul Absolute Basos (auto) 0.1 (0-0.2) 10^3/ul Absolute Nucleated RBC 0.0 10^3/ul Nucleated RBC % 0.1 INR (Anticoag Therapy) (0.82-1.09) Sodium 134 L (135-145) mmol/L Potassium 4.4 (3.5-5.0) mmol/L Chloride 101 (101-111) mmol/L Carbon Dioxide 24 (22-32) mmol/L Anion Gap 9 (2-11) mmol/L BUN 26 H (6-24) mg/dL Creatinine 1.42 H (0.51-0.95) mg/dL Est GFR ( Amer) 43.9 (>60) Est GFR (Non-Af Amer) 36.3 (>60) BUN/Creatinine Ratio 18.3 (8-20) Glucose 131 H (70-100) mg/dL Lactic Acid 1.9 (0.5-2.0) mmol/L Calcium 9.2 (8.6-10.3) mg/dL Magnesium 0.9 L* (1.9-2.7) mg/dL Total Bilirubin 1.30 H (0.2-1.0) mg/dL AST 8 L (13-39) U/L ALT 4 L (7-52) U/L Alkaline Phosphatase 73 (34-104) U/L Troponin I 0.03 (<0.04) ng/mL Total Protein 6.7 (6.4-8.9) g/dL Albumin 3.7 (3.2-5.2) g/dL Globulin 3.0 (2-4) g/dL Albumin/Globulin Ratio 1.2 (1-3) 02/23/19 Range/Units 13:35 WBC (3.5-10.8) 10^3/uL RBC (3.70-4.87) 10^6 /uL Hgb (12.0-16.0) g/dL Hct (35-47) % MCV (80-97) fL MCH (27-31) pg MCHC (31-36) g/dL RDW (10-15) % Plt Count (150-450) 10^3/uL MPV (7.4-10.4) fL Neut % (Auto) % Lymph % (Auto) % [place] % (Auto) % Eos % (Auto) % Baso % (Auto) % Absolute Neuts (auto) (1.5-7.7) 10^3/ul Absolute Lymphs (auto) (1.0-4.8) 10^3/ul Absolute Monos (auto) (0-0.8) 10^3/ul Absolute Eos (auto) (0-0.6) 10^3/ul Absolute Basos (auto) (0-0.2) 10^3/ul Absolute Nucleated RBC 10^3/ul Nucleated RBC % INR (Anticoag Therapy) 1.71 H (0.82-1.09) Sodium (135-145) mmol/L Potassium (3.5-5.0) mmol/L Chloride (101-111) mmol/L Carbon Dioxide (22-32) mmol/L Anion Gap (2-11) mmol/L BUN (6-24) mg/dL Creatinine (0.51-0.95) mg/dL Est GFR ( Amer) (>60) Est GFR (Non-Af Amer) (>60) BUN/Creatinine Ratio (8-20) Glucose (70-100) mg/dL Lactic Acid (0.5-2.0) mmol/L Calcium (8.6-10.3) mg/dL Magnesium (1.9-2.7) mg/dL Total Bilirubin (0.2-1.0) mg/dL AST (13-39) U/L ALT (7-52) U/L Alkaline Phosphatase (34-104) U/L Troponin I (<0.04) ng/mL Total Protein (6.4-8.9) g/dL Albumin (3.2-5.2) g/dL Globulin (2-4) g/dL Albumin/Globulin Ratio (1-3) Result Diagrams: 02/23/19 12:52 02/23/19 12:52 Lab Statement: Any lab studies that have been ordered have been reviewed, and results considered in the medical decision making process. Disposition - Course Course Of Treatment: Patient is evaluated for fall. She endorses pain to the bilateral knees, but denies any pain otherwise. On physical examination, patient has ecchymosis to the left eye is closed the left cheek and chin. She denies any pain to this area. She denies any other ecchymosis or signs of trauma. She does have abrasions to her left knee, no other ecchymosis identified. She does have a severe intertriginous Pito infection to the groin area. Also malodorous of a possible UTI. Pt has pain to palpation of the bilateral knees without palpation to the bilateral hips or ankles. No pain with log rolling. Pt endorses ambulating following the fall last night, but has needed her cane which has been her baseline x 1 year. No abdominal tenderness. Endorses spasms to the L lower extremity and appears to be some tetany to this region intermittently. Magnesium ordered. Labs obtained which show a normal WBC with a sodium of 134 and mag of 0.9. CXR shows: Right lower lobe consolidation with a right pleural effusion. Recommend follow-up until resolution to exclude underlying pulmonary parenchymal pathology. Patient was given Zosyn 3.375 IV area she was not repleted with fluids as her BNP was elevated at 546. She was also given 4mg IV mag. EKG shows sinus tachycardia at 102, however while practitioner in room, patient was noted to be in the 135s. She then reduced to 92. At this time, any rate controlled medications were held as this likely secondary to mag deficiency. O2 91% on 3L. She does not use O2 at home. Discussed case with Dr. Randle. Called hospitalist, Dr. Smith who will see and admit pt. Ordered Clotrimazole for groin pito infection. Pt has UTI, zosyn will cover. - Differential Dx - Cardiopulmonary Differential Diagnoses - Cardiopulmonary: CHF, Hypoxia, Pulmonary Edema, Other - UTI, hypomagnesmia, dyspnea, hypoxia - Diagnoses Provider Diagnoses: Pneumonia - Physician Notifications Discussed Care Of Patient With: Delfina Smith Instructed by Provider To: Admit As Inpatient Discharge ED - Sign-Out/Discharge Documenting (check all that apply): Patient Departure - Discharge Plan Condition: Fair Disposition: ADMITTED TO [facility] Referrals: Morgan Mccarthy MD [Primary Care Provider] - - Billing Disposition and Condition Condition: FAIR Disposition: Admitted to [facility] - Attestation Statements Provider Attestation: I was available for consult. This patient was seen by the PRIYA. The patient was not presented to, seen by, or examined by me. Stewart Hu MD
[2019-02-23 15:07] LABS: Urine Appearance Turbid; Urine Bacteria Absent (Absent); Urine Bilirubin Negative (Negative); Urine Blood 2+ (Negative); Urine Color Amber; Urine Glucose Negative (Negative); Urine Ketones Negative (Negative); Urine Nitrite Positive (Negative); Urine Protein 2+(100 mg/dL) (Negative); Urine Red Blood Cell 3+(>10/hpf) (Absent); Urine Specific Gravity 1.014 (1.010-1.030); Urine Urobilinogen Negative (Negative); Urine White Blood Cell 3+(>20/hpf) (Absent)
[2019-02-23] MEDS ORDERED: Atenolol TAB* 25 MG PO ONE (15:39)
[2019-02-23] MEDS ORDERED: Al Hydrox/Mg Hydrox/Simet LIQ* 30 ML UDC PO PRN (15:43)
[2019-02-23] MEDS ORDERED: Ondansetron INJ* 2 MG/ML VIAL IV PRN (15:43)
[2019-02-23] MEDS ORDERED: Senna TAB 8.6 mg* TAB PO PRN (15:43)
[2019-02-23] MEDS ORDERED: Albuterol HFA INHALER* 8 gm MDI INH PRN (15:46)
[2019-02-23] MEDS: Diltiazem CD CAP* 120 MG PO SCH (16:09)
--- NOTE | 2019-02-23 18:18 | HP ---
CC: Dr. Mccarthy * HISTORY AND PHYSICAL: DATE OF ADMISSION: 02/23/19 ATTENDING PHYSICIAN WHILE IN THE HOSPITAL: Dr. Delfina Gupta * (dictated by CHING Guadalupe). PRIMARY CARE PROVIDER: Dr. Mccarthy. CHIEF COMPLAINT: Bilateral knee pain and leg spasms. HISTORY OF PRESENT ILLNESS: Litzy Rosado is a 73-year-old white female with past medical history significant for hypertension; diabetes mellitus type 2; atrial fibrillation, on Eliquis; COPD; and tobacco use, who presents to the emergency department today for her bilateral knee pain and bilateral lower extremity muscle spasms. The patient fell in her home yesterday. She reports she is unsure how she fell, but repeatedly emphasizes that she did not faint. Her sister heard her yell out when she fell and did find the patient to be on the ground with her pants around her ankles. The patient does not remember exactly how she fell, but says that she did not wake up suddenly on the floor. The emergency medical services responded to her home yesterday to help her off the floor and then the patient did not report to the emergency department because she felt fine. However, this morning, she had a difficult time getting out of bed because of her leg pain and muscle spasms and asked the emergency medical services to bring her to the hospital. The patient tells me she does not have head pain, chest pain, difficulty breathing, chest palpitations, feeling of racing heartbeat, abdominal pain, nausea, vomiting, lightheadedness, or dizziness. She denies lightheadedness or dizziness leading up to her fall yesterday. She denies fever, chills, and she tells me that her shortness of breath feels like her baseline. She admits that she frequently eats only one meal per day. Her sister reports that if she is not home to cook for the patient, the patient will typically not eat dinner. EMERGENCY DEPARTMENT COURSE: When the patient arrived to the emergency department, her vital signs were temperature 97.1, pulse rate 135, her respiratory rate 24, oxygen saturation 84% on room air, blood pressure 175/47 and subsequently 123/89. The patient was found to be in AFib with rapid ventricular rate on the EKG and the hospitalists were asked to evaluate the patient for admission. PAST MEDICAL HISTORY: 1. Hypertension. 2. Diabetes mellitus type 2. 3. Depression. 4. Cerebellar aneurysm, status post TUFTING MACHINE OPERATOR shunt and clipping. 5. Escamilla's esophagus. 6. AFib, on Eliquis. 7. History of seizures. 8. COPD, no oxygen during the day. 9. GERD. 10. Current tobacco use. 11. Diastolic CHF. 12. Pulmonary hypertension. 13. JASMINA, on CPAP and 2 L oxygen overnight. 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 Poe. PAST SURGICAL HISTORY: 1. Hysterectomy. 2. TUFTING MACHINE OPERATOR shunt and clipping for cerebellar aneurysm. 3. Appendectomy. 4. Cholecystectomy. 5. Cataract surgery. 6. Lower back surgery. HOME MEDICATIONS: 1. Eliquis 5 mg p.o. b.i.d. 2. Vitamin B12 1000 mcg p.o. daily. 3. Urea 40% cream 1 application topically daily. 4. Tramadol 50 mg p.o. q.6 hours p.r.n. pain. 5. Singulair 10 mg p.o. daily. 6. Silvadene cream 1 application topically daily. 7. Albuterol inhaler 2 puffs inhaled q.4 hours p.r.n. shortness of breath/ wheezing. 8. Omeprazole 20 mg p.o. b.i.d. 9. Metolazone 5 mg p.o. daily. 10. Losartan 100 mg p.o. daily. 11. Lasix 40 mg p.o. daily. 12. Ferrous sulfate 325 mg p.o. daily. 13. Incruse Ellipta 1 puff inhaled daily. 14. Celexa 40 mg p.o. daily. 15. Cholestyramine 4 g p.o. t.i.d. 16. Diltiazem 120 mg p.o. daily. 17. Atenolol 25 mg p.o. b.i.d. 18. Fosamax 70 mg p.o. weekly. ALLERGIES: Swelling of face, lips and throat to TOMATO. FAMILY HISTORY: Father at age 88 due to dementia and he had a history of hypertension and diabetes. Mother had a history of hypertension and NM, unclear cause of . SOCIAL HISTORY: The patient lives with her sister, Lorena Simpson. She would like Lorena to be her surrogate medical decision maker for her should she need one. Her phone number is [phone]. 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 She is and she has 1 child from her marriage. She smokes half a pack per day. She has been smoking for over 50 years and previously smoked more than half a pack a day. She denies drinking and illicit drug use. REVIEW OF SYSTEMS: An 11-point review of systems was completed and all pertinent positives and negatives are above in the HPI. All other systems are negative. The patient denies dysuria. PHYSICAL EXAMINATION GENERAL: An obese, elderly white female, lying upright in hospital bed, appearing comfortable, in no acute distress. HEENT: Head: Normocephalic. Ecchymosis to the left infraorbital region and left aspect of the mandible. Eyes: PERRL. Sclerae anicteric. Visual estrada are full to confrontation. ENT: Poor dentition. Lips appear dry. NECK: Supple. LUNGS: Crackles in bilateral lung bases. Chest expansion is symmetrical with respirations. CARDIO: Irregularly irregular rhythm consistent with AFib, tachycardic, rate approximately 108 beats per minute. No murmurs appreciated. ABDOMEN: Soft, nontender, nondistended. EXTREMITIES: No clubbing, cyanosis, or edema. MUSCULOSKELETAL: Ecchymosis and edema to the right knee. Tenderness to palpation in bilateral knees. Able to flex and extend bilateral knees, ankles and hips. NEURO: The patient is alert and oriented x3. No focal deficits. Strength is 5 /5 in all extremities. SKIN: Erythema in the intertriginous fold under the abdomen in the aspect of the right groin consistent with candidiasis. Chronic vascular changes and dry skin to the bilateral lower extremities consistent with lymphedema. DIAGNOSTIC STUDIES/LAB DATA: Bilateral knee x-rays, impression: Peripheral arterial disease. Mild osteoarthritis. No acute osseous injury bilaterally. If symptoms persist, recommend repeat imaging. Ro[facility] CT: No acute intracranial abnormality. Status post aneurysmal coiling embolization. Unchanged left frontal lobe encephalomalacia. Right transparietal TUFTING MACHINE OPERATOR shunt is in place. Ventricles are unchanged in size and configuration. Unchanged thin biconvexity and subdural collections. Chest x-ray: Right lower lobe consolidation with a right pleural effusion. Recommend followup until resolution to exclude underlying pulmonary parenchymal pathology. EKG: Irregularly irregular rhythm, rate 105 beats per minute. No ST elevations or depressions. No T-wave inversions. White blood cell 8.2, hemoglobin 13.8, hematocrit 42, platelets 159. INR 1.71. Sodium 134, potassium 4.4, chloride 101, carbon dioxide 24, anion gap 9, BUN 26 , creatinine 1.42, glucose 131, lactic acid 1.9, calcium 9.2, magnesium 0.9. Bilirubin 1.3, AST 8, ALT 4. BNP 546. Urine: Specific gravity 1.014, protein +2, blood +2, nitrite positive, leukocyte esterase +3, white blood cell +3, red blood cell +3, bacteria negative , glucose negative, ketones negative, bilirubin negative, urobilinogen negative. ASSESSMENT AND PLAN: Litzy Rosado is a 73-year-old white female with past medical history significant for diabetes mellitus type 2, hypertension, atrial fibrillation, chronic obstructive pulmonary disease, diastolic heart failure, who presents to the emergency department due to bilateral knee pain and muscle spasms. Found to be in atrial fibrillation with rapid ventricular rate. The patient will be admitted OBV for: 1. Atrial fibrillation with rapid ventricular rate. I suspect that her atrial fibrillation has been rapid ventricular response due to her significant hypomagnesemia. She reports being compliant with her atenolol and diltiazem. However, she did not take these medications yet today because of her trip to the hospital and this may also be contributing. During the time of examination in the room, her heart rate did fall to the 110s and in the 90s. I will give 1 dose of 25 mg atenolol in the emergency department now. We will continue to monitor her on telemetry. She has already started repletion with IV magnesium in the ED and we will continue the total 4 g bolus that was ordered by the ED provider. I will continue her home Eliquis, diltiazem, and atenolol. 2. Lung crackles. The patient was found to have right-sided possible consolidation; however, to me it appears that this is most likely a pulmonary edema; however, it is difficult to tell on chest x-ray and therefore I will order a CT. In the recent past in her hospitalization where she was discharged in September of 2018, she did have a similar presentation and a thoracentesis had been performed by Dr. Green which found no malignant cells and it was transudative effusion thought to be related to her heart failure. She received 1 dose of Zosyn in the emergency department due to concern for pneumonia; however, I will not continue at this time until I have results of the CT which is pending. It is quite likely that this is related to heart failure decompensation. She does have diastolic heart failure based on her echocardiogram from September of 2018. I will continue her home Lasix, metolazone, losartan, and atenolol and perhaps IV diuretics will be needed based on the findings of the chest CT. 3. Candidiasis. The patient has a candidiasis in her right intertriginous groin fold. The patient tells me she is unaware of this rash until this was pointed out to her in the emergency department. She received one-time clotrimazole cream in the emergency department and I will order t.i.d. nystatin powder as it does appear somewhat macerated. This indicates to me that the patient has poor self-care at home. For discharge planning purposes, if she is not going to subacute rehab, it would be of great benefit for the patient to have VNS at home. 4. Bilateral knee pain and muscle spasms. The muscle spasms are likely related to her hypomagnesemia, which is already being replaced and we will continue to monitor. Her knee pain is likely secondary to what I believe is a mechanical fall. I will order Physical Therapy consult. There are no fractures found on bilateral knee x-ray and her musculoskeletal exam as far as range of motion appears overall normal. 5. Mechanical fall. As previously mentioned, the patient has knee pain secondary to this. She does have ecchymosis to her face. Brain CT was negative and I have ordered PT as previously mentioned. 6. Abnormal UA. The patient has an abnormal urinalysis and we will follow the urine culture. She does not have a leukocytosis and she denied dysuria. Empiric coverage will not be implemented. 7. Diabetes mellitus type 2. It does not appear that the patient takes any home medications, so I will order an A1c for the morning and daily fingersticks. This can be adjusted to a.c. fingersticks if needed. 8. Chronic obstructive pulmonary disease. I will continue the patient's home inhalers. She was hypoxic when she came to the emergency department. I do not believe that this is related to chronic obstructive pulmonary disease exacerbation as the patient is not having any wheezing or rhonchi. This is most likely related to this possible congestive heart failure exacerbation versus pneumonia, which I again will follow. 9. Obstructive sleep apnea. The patient uses CPAP with 2 L at home and I will order this while she is in the hospital. 10. Depression. Continue the patient's home citalopram. 11. Tobacco use. I will order nicotine patch while the patient is in the hospital. 12. FEN: The patient has hypomagnesemia, which I do attribute to poor appetite and poor oral intake. We will continue to follow this. This is being repleted with 4 g in the ED. No IV fluids at this time. She did receive 1 L of IV fluids in the emergency department. Diet will be carbohydrate consistent diet. 13. Code status: The patient is a full code. 14. DVT prophylaxis: The patient has a DVT risk score of 2. She is on Eliquis and this will be continued. TIME SPENT: Approximately 45 minutes was spent on this admission, approximately half this time was spent at bedside evaluating the patient and discussing the plan of care. This case has been reviewed with my attending, Dr. Delfina Gupta, and she agrees with this plan of care. CHING GUADALUPE [id number]/[facility] #: [id number] [facility] MEDICAL CENTERKimberly
[2019-02-23] MEDS: Apixaban* 5 MG TAB PO SCH (20:37)
[2019-02-23] MEDS: Atenolol TAB* 25 MG PO SCH (20:38)
[2019-02-23] MEDS: Pantoprazole TAB * 40 MG TAB PO SCH (20:38)
[2019-02-23] MEDS: Nicotine Patch Removal NOTE FOLLOW UP SCH (20:41)
[2019-02-23] MEDS: Nystatin TOP POWDER* 15 GM BTL TOPICAL SCH (22:22)
[2019-02-24 06:03] LABS: ABS Basophils 0.1 10^3/ul (0-0.2); ABS Eosinophils 0.2 10^3/ul (0-0.6); ABS Lymphocytes 0.4 10^3/ul (1.0-4.8); ABS Monocytes 0.5 10^3/ul (0-0.8); ABS Neutrophils 7.2 10^3/ul (1.5-7.7); Eosinophil % 1.9 %; Hematocrit 37 % (35-47); Hemoglobin 12.7 g/dL (12.0-16.0); Lymphocyte % 4.7 %; Mean Corpuscular HGB Conc 34 g/dL (31-36); Mean Corpuscular Hemoglobin 31 pg (27-31); Mean Corpuscular Volume 93 fL (80-97); Mean Platelet Volume 7.5 fL (7.4-10.4); Platelet Count 157 10^3/uL (150-450); Red Blood Count 4.03 10^6 /uL (3.70-4.87); Red Cell Distribution Width 16 % (10-15); White Blood Count 8.4 10^3/uL (3.5-10.8)
[2019-02-24 06:21] LABS: Albumin 3.4 g/dL (3.2-5.2); Albumin/Globulin Ratio 1.3 (1-3); BUN/Creatinine Ratio 20.3 (8-20); EGFR African American 45.3 (>60); EGFR Non-African American 37.5 (>60); Globulin 2.7 g/dL (2-4); Potassium 3.9 mmol/L (3.5-5.0); Total Bilirubin 1.5 mg/dL (0.2-1.0); Total Protein 6.1 g/dL (6.4-8.9)
[2019-02-24] MEDS: SPIRIVA Respimat* (tiotropium) 2.5 mcg/inh Inhaler INH SCH (07:50)
[2019-02-24] MEDS ORDERED: Furosemide IV* 10 MG/ML VIAL (40 MG) IV SCH (09:00)
[2019-02-24] MEDS ORDERED: Losartan TAB* 25 MG PO SCH (09:00)
[2019-02-24] MEDS ORDERED: Furosemide TAB* 40 MG PO SCH (09:00)
[2019-02-24] MEDS ORDERED: Metolazone TAB* 5 MG PO SCH (09:00)
[2019-02-24] MEDS: Nicotine PATCH 21 MG/24 HR* PATCH TRANSDERM SCH (10:27)
[2019-02-24] MEDS: Acetaminophen TAB* 325 MG PO PRN ×2 (10:29→17:12)
[2019-02-24] MEDS: Diltiazem CD CAP* 120 MG PO SCH (10:30)
[2019-02-24] MEDS: Atenolol TAB* 25 MG PO SCH (10:30)
[2019-02-24] MEDS: Montelukast Sodium TAB* 10 MG PO SCH (10:30)
[2019-02-24] MEDS: Ferrous Sulfate TAB* 325 MG PO SCH (10:31)
[2019-02-24] MEDS: Pantoprazole TAB * 40 MG TAB PO SCH ×2 (10:31→20:28)
[2019-02-24] MEDS: Citalopram TAB* 40 MG PO SCH (10:31)
[2019-02-24] MEDS: Cyanocobalamin TAB* 500 MCG PO SCH (10:32)
[2019-02-24] MEDS: Apixaban* 5 MG TAB PO SCH ×2 (10:33→20:29)
[2019-02-24 10:46] LABS: Magnesium 1.8 mg/dL (1.9-2.7)
[2019-02-24] MEDS: [UNRECOGNIZED DRUG - OTHER] TOPICAL SCH (11:16)
[2019-02-24] MEDS: UREA TOPICAL SCH (11:16)
[2019-02-24] MEDS ORDERED: Magnesium Sulfate 2 GM IV* 2 GM/50 ML BAG IVPB ONE (13:01)
--- NOTE | 2019-02-24 13:08 | PN ---
Subjective Date of Service: 02/24/19 Interval History: HD 2 on 02/24 No acute overnight events VS stable Complains of mild bilateral knee pain. has cough requiring 4 L of oxygen to maintain saturation Denies chest pain, palpitation, dizziness ACute event-Blood pressure dropped to 70's and her heart rate was in 40's at around 3:00 PM. IV bolus was given and her blood pressure came up to 100's/60's mm Hg. She is also having frequent pauses of 3 sec. patient is asymptomatic though. Blood work done and ekg done which showed Afib with bradycardia. Objective Active Medications: Acetaminophen (Tylenol Tab*) 650 mg PO Q4H PRN PRN Reason: MILD PAIN or TEMP > 100.4 Last Admin: 02/24/19 10:29 Dose: 650 mg Al Hydrox/Mg Hydrox/Simethicone (Maalox Plus*) 30 ml PO Q6H PRN PRN Reason: INDIGESTION Albuterol (Ventolin Hfa Inhaler*) 2 puff INH Q4H PRN PRN Reason: SHORTNESS OF BREATH Apixaban (Eliquis*) 5 mg PO BID [facility] Last Admin: 02/24/19 10:33 Dose: 5 mg Atenolol (Tenormin Tab*) 25 mg PO BID [facility] Last Admin: 02/24/19 10:30 Dose: 25 mg Citalopram Hydrobromide (Celexa Tab*) 40 mg PO DAILY [facility] Last Admin: 02/24/19 10:31 Dose: 40 mg Cyanocobalamin (Vitamin B12 Tab*) 1,000 mcg PO DAILY [facility] Last Admin: 02/24/19 10:32 Dose: 1,000 mcg Diltiazem HCl (Cardizem Cd Cap*) 120 mg PO DAILY [facility] Last Admin: 02/24/19 10:30 Dose: 120 mg Ferrous Sulfate (Ferrous Sulfate Tab*) 325 mg PO DAILY [facility] Last Admin: 02/24/19 10:31 Dose: 325 mg Furosemide (Lasix Iv*) 40 mg IV DAILY [facility] Last Admin: 02/24/19 10:30 Dose: 40 mg Magnesium Sulfate (Magnesium Sulfate 2 Gm Iv*) 2 gm in 50 mls @ 50 mls/hr IVPB ONCE ONE Stop: 02/24/19 14:00 Losartan Potassium (Cozaar Tab*) 100 mg PO DAILY [facility] Last Admin: 02/24/19 10:29 Dose: 100 mg Metolazone (Zaroxolyn Tab*) 5 mg PO DAILY [facility] Last Admin: 02/24/19 10:28 Dose: 5 mg Montelukast Sodium (Singulair Tab*) 10 mg PO DAILY [facility] Last Admin: 02/24/19 10:30 Dose: 10 mg Nicotine (Nicotine Patch 21 Mg/24 Hr*) 1 patch TRANSDERM DAILY@0800 [facility] Last Admin: 02/24/19 10:27 Dose: 1 patch Nft: Urea-C40 Cream (40% 1 Applic) 1 applic TOPICAL DAILY [facility] Last Admin: 02/24/19 11:16 Dose: Not Given Nystatin (Nystatin Top Powder*) 1 applic TOPICAL TID [facility] Last Admin: 02/23/19 22:22 Dose: 1 applic Ondansetron HCl (Zofran Inj*) 4 mg IV Q4H PRN PRN Reason: NAUSEA/VOMITING Pantoprazole Sodium (Protonix Tab*) 40 mg PO BID [facility] Last Admin: 02/24/19 10:31 Dose: 40 mg Pharmacy Profile Note (Nicotine Patch Removal Note*) 1 note FOLLOW UP 2100 [facility] Last Admin: 02/23/19 20:41 Dose: Not Given Senna (Senokot 8.6 Mg Tab*) 1 tab PO BID PRN PRN Reason: CONSTIPATION Tiotropium [place] (Spiriva Respimat 2.5 Mcg) 2 puff INH DAILY [facility] Last Admin: 02/24/19 07:50 Dose: 2 puff Tramadol HCl (Ultram*) 50 mg PO Q6HR PRN PRN Reason: PAIN Vital Signs - 8 hr 02/24/19 02/24/19 02/24/19 07:20 07:52 09:00 Temperature 97.1 F 96.9 F Pulse Rate 74 80 99 Respiratory 26 16 18 Rate Blood Pressure 109/53 94/65 (mmHg) O2 Sat by Pulse 92 92 Oximetry 02/24/19 02/24/19 02/24/19 10:35 11:38 11:44 Temperature 96.5 F 96.5 F Pulse Rate 79 79 Respiratory 18 18 Rate Blood Pressure 101/60 92/55 92/55 (mmHg) O2 Sat by Pulse 93 93 Oximetry Oxygen Devices in Use Now: Nasal Cannula Exam: Patient is sitting on a chair with no acute distress HEENT: Bruise on left periorbital area and in chin Lungs: Decreased breath sound heard on right side with crackles Heart: normal rate; irregular rhythm Abdomen: soft, nondistended and nontender Extremities; bruise on both knee. dark discoloration of both lower limb with scaling and pitting edema skin: redness on lower abdominal skin fold Neuro: Alert, consious and oriented Result Diagrams: 02/24/19 15:52 02/24/19 15:52 Additional Lab and Data: Lab Results 02/23/19 02/23/19 02/23/19 Range/Units 12:52 12:52 13:35 WBC 8.2 (3.5-10.8) 10^3/uL RBC 4.44 (3.70-4.87) 10^6 /uL Hgb 13.8 (12.0-16.0) g/dL Hct 42 (35-47) % MCV 93 (80-97) fL MCH 31 (27-31) pg MCHC 33 (31-36) g/dL RDW 15 (10-15) % Plt Count 159 (150-450) 10^3/uL MPV 7.5 (7.4-10.4) fL Neut % (Auto) 87.5 % Lymph % (Auto) 4.5 % [place] % (Auto) 5.4 % Eos % (Auto) 1.4 % Baso % (Auto) 1.2 % Absolute Neuts (auto) 7.1 (1.5-7.7) 10^3/ul Absolute Lymphs (auto) 0.4 L (1.0-4.8) 10^3/ul Absolute Monos (auto) 0.4 (0-0.8) 10^3/ul Absolute Eos (auto) 0.1 (0-0.6) 10^3/ul Absolute Basos (auto) 0.1 (0-0.2) 10^3/ul Absolute Nucleated RBC 0.0 10^3/ul Nucleated RBC % 0.1 INR (Anticoag Therapy) (0.82-1.09) Sodium 134 L (135-145) mmol/L Potassium 4.4 (3.5-5.0) mmol/L Chloride 101 (101-111) mmol/L Carbon Dioxide 24 (22-32) mmol/L Anion Gap 9 (2-11) mmol/L BUN 26 H (6-24) mg/dL Creatinine 1.42 H (0.51-0.95) mg/dL Est GFR ( Amer) 43.9 (>60) Est GFR (Non-Af Amer) 36.3 (>60) BUN/Creatinine Ratio 18.3 (8-20) Glucose 131 H (70-100) mg/dL Lactic Acid 1.9 (0.5-2.0) mmol/L Calcium 9.2 (8.6-10.3) mg/dL Magnesium 0.9 L* (1.9-2.7) mg/dL Total Bilirubin 1.30 H (0.2-1.0) mg/dL AST 8 L (13-39) U/L ALT 4 L (7-52) U/L Alkaline Phosphatase 73 (34-104) U/L Troponin I 0.03 (<0.04) ng/mL Total Protein 6.7 (6.4-8.9) g/dL Albumin 3.7 (3.2-5.2) g/dL Globulin 3.0 (2-4) g/dL Albumin/Globulin Ratio 1.2 (1-3) 02/23/19 Range/Units 13:35 WBC (3.5-10.8) 10^3/uL RBC (3.70-4.87) 10^6 /uL Hgb (12.0-16.0) g/dL Hct (35-47) % MCV (80-97) fL MCH (27-31) pg MCHC (31-36) g/dL RDW (10-15) % Plt Count (150-450) 10^3/uL MPV (7.4-10.4) fL Neut % (Auto) % Lymph % (Auto) % [place] % (Auto) % Eos % (Auto) % Baso % (Auto) % Absolute Neuts (auto) (1.5-7.7) 10^3/ul Absolute Lymphs (auto) (1.0-4.8) 10^3/ul Absolute Monos (auto) (0-0.8) 10^3/ul Absolute Eos (auto) (0-0.6) 10^3/ul Absolute Basos (auto) (0-0.2) 10^3/ul Absolute Nucleated RBC 10^3/ul Nucleated RBC % INR (Anticoag Therapy) 1.71 H (0.82-1.09) Sodium (135-145) mmol/L Potassium (3.5-5.0) mmol/L Chloride (101-111) mmol/L Carbon Dioxide (22-32) mmol/L Anion Gap (2-11) mmol/L BUN (6-24) mg/dL Creatinine (0.51-0.95) mg/dL Est GFR ( Amer) (>60) Est GFR (Non-Af Amer) (>60) BUN/Creatinine Ratio (8-20) Glucose (70-100) mg/dL Lactic Acid (0.5-2.0) mmol/L Calcium (8.6-10.3) mg/dL Magnesium (1.9-2.7) mg/dL Total Bilirubin (0.2-1.0) mg/dL AST (13-39) U/L ALT (7-52) U/L Alkaline Phosphatase (34-104) U/L Troponin I (<0.04) ng/mL Total Protein (6.4-8.9) g/dL Albumin (3.2-5.2) g/dL Globulin (2-4) g/dL Albumin/Globulin Ratio (1-3) Assess/Plan/Problems-Billing Assessment: 73 y/o F with h/o COPD(2L of o2 at night),HRpEF, Chronic Afib(on atenolol, dilti and eliquis), HTN,DM and tobacco use presented with acute bilateral knee pain and b/l LE spasm after fall 1 day ago. Found to have AF with RVR, hypomagnesemia, Rt pleural effusion and atelectasis and hypoxia. - Patient Problems (1) Hypotension Current Visit: Yes Status: Acute Comment: -Bp in 70's -given IV fluid bolus; came up to 100/50-60mm Hg -stopped atenolol and diltiazem -will monitor BP (2) Hypoxia Current Visit: Yes Status: Acute Code(s): R09.02 - HYPOXEMIA SNOMED Code(s ): 692452028 Comment: -Has SOB -was in oxygen(2L) at home only at night -is requiring 4L of oxygen at present even during day to maintain saturation -possibility- acute on chronic HF, Pleural effusion, atelectasis; less likely PE as patient is already in therapeutic anticoagulation and even if PE tx would be same -we are treating underlying cause- iv lasix for HF -Pleural effusion could be secondary to HF (3) Knee pain Current Visit: Yes Status: Acute Code(s): M25.569 - PAIN IN UNSPECIFIED KNEE SNOMED Code(s): 90804510 Comment: -mild pain- after fall -XRay didnot show any fracture -has some bruising -tylenol prn (4) Atrial fibrillation Current Visit: No Status: Acute Code(s): I48.91 - UNSPECIFIED ATRIAL FIBRILLATION SNOMED Code(s): 13712113 Comment: -RVR in admission; -controlled with one dose of atenolol PO in ED -now rate controlled; rhythm still irregular -atenolol and diltiazem stopped was pt became sherrie and having frequent pauses -will monitor her at present -on eliquis (5) Pleural effusion Current Visit: Yes Status: Acute Code(s): J90 - PLEURAL EFFUSION, NOT ELSEWHERE CLASSIFIED SNOMED Code(s): 81465511 Comment: -has right sided pleural effusion with atlectasis -has effusion since september -thoracentesis was done in september and was negative for any malignany -transudative secondary to heart failure -we will treat HF and see if it improves -if doesnt improve then thoracentesis can be done to relieve hypoxia (6) CHF (congestive heart failure) Current Visit: No Status: Acute Code(s): I50.9 - HEART FAILURE, UNSPECIFIED SNOMED Code(s): 20236090 Comment: -acute on chronic diastolic HF -likely ppt by AF with RVR -has sob and lowe limb swelling and crackles -echo done in 09/2018- EF of60-65% with severe LA dilatation with moderate to severe calcification of mitral valve and mild dynamic obstruction of LV. -we will gie her iv lasix while in hospital -I and O daily -daily weight (7) HTN (hypertension) Current Visit: No Status: Acute Code(s): I10 - ESSENTIAL (PRIMARY) HYPERTENSION SNOMED Code(s): 18018059 Comment: -well controlled'-on soft side -we will continue to monitor (8) UTI (urinary tract infection) Current Visit: Yes Status: Acute Comment: -asymptomatic -urinalaysis shows blood with leucocyte esterase with nitrates but no bacteria -urine culture positive for E. coli -started ceftriaxone(day 1 on 02/24) (9) Diabetes Current Visit: No Status: Acute Code(s): E11.9 - TYPE 2 DIABETES MELLITUS WITHOUT COMPLICATIONS SNOMED Code(s): 91846483 Comment: -has prediabetes hba1c is 6.0 (10) Lung nodule Current Visit: No Status: Acute Code(s): R91.1 - SOLITARY PULMONARY NODULE SNOMED Code(s): 823076904 Comment: -unchanged from previous scan in september -also has pleural effusion; negative for malignancy in september -follow up with repeat CT in 6 month and consult with pulmonology (11) DVT prophylaxis Current Visit: No Status: Acute Code(s): SIP1308 - SNOMED Code(s): 773232565 Comment: on eliquis Status and Disposition: Inpatient Attending: Robinson Lynch Attestation Documenting Resident: Jimena Peralta Supervising Physician: Robinson Lynch Attending/Supervising Physician Comment: Agree with plan as outlined here in Dr. Min's note unless indicated. Admitted after fall found with afib RVR, pleural effusion, hypocix respiratory failure with stay notable for hypotension and bradycardia Hypotension and bradycardia - suspect medication indiced. We checked with PCP and manager [facility] records and all list different doses of AV jabier agentsl Of note she had bradycardia in September and diltiazam was stopped and metoprolled decreased to once daily. Blood pressure responded to 1 liter fluids but we would like to avoid additional fluid if able 2/2 hypoxic respiratory failure/ chf exacerbation/pleural effusion. Blood cultures and CTX in setting of new hypotension and positive urine cx. Respiratory failure - multifactoral - pleural effusion, atalectasis, acute chf exacerbation. Lasix as able. Attestation: This service has been performed in part by a resident under the direction of a teaching physician.I, Robinson Lynch, performed the service, or was physically present during the critical, or locke portions of the service, furnished by the resident. I participated in the management of the patient.
[2019-02-24] MEDS ORDERED: NS 0.9% 1000 ML** 1,000 ML IV ONE (15:03)
[2019-02-24 16:01] LABS: ABS Basophils 0.1 10^3/ul (0-0.2); ABS Eosinophils 0.2 10^3/ul (0-0.6); ABS Lymphocytes 0.5 10^3/ul (1.0-4.8); ABS Monocytes 0.5 10^3/ul (0-0.8); ABS Neutrophils 5.8 10^3/ul (1.5-7.7); Eosinophil % 2.6 %; Hematocrit 34 % (35-47); Hemoglobin 11.4 g/dL (12.0-16.0); Lymphocyte % 7.1 %; Mean Corpuscular HGB Conc 33 g/dL (31-36); Mean Corpuscular Hemoglobin 31 pg (27-31); Mean Corpuscular Volume 94 fL (80-97); Mean Platelet Volume 7.5 fL (7.4-10.4); Nucleated Red Blood Cells % 0.1; Platelet Count 144 10^3/uL (150-450); Red Blood Count 3.65 10^6 /uL (3.70-4.87); Red Cell Distribution Width 16 % (10-15); White Blood Count 7.1 10^3/uL (3.5-10.8)
[2019-02-24] MEDS: cefTRIAXone(*) 1 GM in NS 0.9% 50 ML* 50 ML IVPB SCH (16:10)
[2019-02-24 16:23] LABS: Albumin/Globulin Ratio 1.1 (1-3); BUN/Creatinine Ratio 18.5 (8-20); Calcium 8.2 mg/dL (8.6-10.3); EGFR African American 34.9 (>60); EGFR Non-African American 28.9 (>60); Globulin 2.7 g/dL (2-4); Potassium 3.6 mmol/L (3.5-5.0); Total Bilirubin 1.1 mg/dL (0.2-1.0); Total Protein 5.7 g/dL (6.4-8.9)
[2019-02-24] MEDS ORDERED: Potassium Chlor TAB* 20 MEQ TAB.ER PO ONE (16:51)
[2019-02-24 17:08] LABS: Magnesium 2.4 mg/dL (1.9-2.7)
[2019-02-24] MEDS: Nystatin TOP POWDER* 15 GM BTL TOPICAL SCH ×2 (20:28→20:47)
[2019-02-24] MEDS: Nicotine Patch Removal NOTE FOLLOW UP SCH (20:29)
[2019-02-25] MEDS: Acetaminophen TAB* 325 MG PO PRN ×3 (01:42→23:00)
[2019-02-25 04:26] LABS: ABS Basophils 0.1 10^3/ul (0-0.2); ABS Eosinophils 0.2 10^3/ul (0-0.6); ABS Lymphocytes 0.4 10^3/ul (1.0-4.8); ABS Monocytes 0.4 10^3/ul (0-0.8); ABS Neutrophils 4.8 10^3/ul (1.5-7.7); Eosinophil % 2.8 %; Hematocrit 34 % (35-47); Hemoglobin 11.1 g/dL (12.0-16.0); Mean Corpuscular HGB Conc 33 g/dL (31-36); Mean Corpuscular Hemoglobin 31 pg (27-31); Mean Corpuscular Volume 94 fL (80-97); Mean Platelet Volume 7.4 fL (7.4-10.4); Platelet Count 142 10^3/uL (150-450); Red Cell Distribution Width 16 % (10-15); White Blood Count 5.8 10^3/uL (3.5-10.8)
[2019-02-25] MEDS ORDERED: NS 0.9% 1000 ML** 1,000 ML IV ONE ×2 (04:35→05:53)
[2019-02-25 04:44] LABS: BUN/Creatinine Ratio 20.7 (8-20); Calcium 8.3 mg/dL (8.6-10.3); EGFR African American 35.9 (>60); EGFR Non-African American 29.7 (>60); Potassium 4.1 mmol/L (3.5-5.0)
[2019-02-25] MEDS: SPIRIVA Respimat* (tiotropium) 2.5 mcg/inh Inhaler INH SCH (07:50)
[2019-02-25] MEDS: Apixaban* 5 MG TAB PO SCH ×2 (09:01→21:13)
[2019-02-25] MEDS: Nicotine PATCH 21 MG/24 HR* PATCH TRANSDERM SCH (09:01)
[2019-02-25] MEDS: Citalopram TAB* 40 MG PO SCH (09:01)
[2019-02-25] MEDS: Pantoprazole TAB * 40 MG TAB PO SCH ×2 (09:01→21:13)
[2019-02-25] MEDS: Montelukast Sodium TAB* 10 MG PO SCH (09:01)
[2019-02-25] MEDS: Cyanocobalamin TAB* 500 MCG PO SCH (09:01)
[2019-02-25] MEDS: Ferrous Sulfate TAB* 325 MG PO SCH (09:01)
[2019-02-25] MEDS: UREA TOPICAL SCH (09:05)
[2019-02-25] MEDS: [UNRECOGNIZED DRUG - OTHER] TOPICAL SCH (09:05)
[2019-02-25] MEDS: Nystatin TOP POWDER* 15 GM BTL TOPICAL SCH ×3 (10:07→21:15)
[2019-02-25] MEDS: cefTRIAXone(*) 1 GM in NS 0.9% 50 ML* 50 ML IVPB SCH (15:09)
--- NOTE | 2019-02-25 17:54 | PN ---
Subjective Date of Service: 02/25/19 Interval History: HD 3 on 02/25 Overnight- had hypotension and sherrie- given 2L of fluids VS stable Denies chest pain, palpitation, dizziness still requiring 5L of oxygen to maintain saturation Objective Active Medications: Acetaminophen (Tylenol Tab*) 650 mg PO Q4H PRN PRN Reason: MILD PAIN or TEMP > 100.4 Last Admin: 02/25/19 01:42 Dose: 650 mg Al Hydrox/Mg Hydrox/Simethicone (Maalox Plus*) 30 ml PO Q6H PRN PRN Reason: INDIGESTION Albuterol (Ventolin Hfa Inhaler*) 2 puff INH Q4H PRN PRN Reason: SHORTNESS OF BREATH Apixaban (Eliquis*) 5 mg PO BID [facility] Last Admin: 02/25/19 09:01 Dose: 5 mg Citalopram Hydrobromide (Celexa Tab*) 40 mg PO DAILY [facility] Last Admin: 02/25/19 09:01 Dose: 40 mg Cyanocobalamin (Vitamin B12 Tab*) 1,000 mcg PO DAILY [facility] Last Admin: 02/25/19 09:01 Dose: 1,000 mcg Ferrous Sulfate (Ferrous Sulfate Tab*) 325 mg PO DAILY [facility] Last Admin: 02/25/19 09:01 Dose: 325 mg Ceftriaxone Sodium 1 gm/ (Sodium Chloride) 50 mls @ 100 mls/hr IVPB Q24H [facility] Last Admin: 02/25/19 15:09 Dose: 100 mls/hr Montelukast Sodium (Singulair Tab*) 10 mg PO DAILY [facility] Last Admin: 02/25/19 09:01 Dose: 10 mg Nicotine (Nicotine Patch 21 Mg/24 Hr*) 1 patch TRANSDERM DAILY@0800 [facility] Last Admin: 02/25/19 09:01 Dose: 1 patch Nft: Urea-C40 Cream (40% 1 Applic) 1 applic TOPICAL DAILY [facility] Last Admin: 02/25/19 09:05 Dose: Not Given Nystatin (Nystatin Top Powder*) 1 applic TOPICAL TID [facility] Last Admin: 02/25/19 13:28 Dose: Not Given Ondansetron HCl (Zofran Inj*) 4 mg IV Q4H PRN PRN Reason: NAUSEA/VOMITING Pantoprazole Sodium (Protonix Tab*) 40 mg PO BID [facility] Last Admin: 02/25/19 09:01 Dose: 40 mg Pharmacy Profile Note (Nicotine Patch Removal Note*) 1 note FOLLOW UP 2100 [facility] Last Admin: 02/24/19 20:29 Dose: 1 note Senna (Senokot 8.6 Mg Tab*) 1 tab PO BID PRN PRN Reason: CONSTIPATION Tiotropium [place] (Spiriva Respimat 2.5 Mcg) 2 puff INH DAILY [facility] Last Admin: 02/25/19 07:50 Dose: 2 puff Tramadol HCl (Ultram*) 50 mg PO Q6HR PRN PRN Reason: PAIN Vital Signs - 8 hr 02/25/19 02/25/19 02/25/19 09:55 10:00 10:25 Temperature Pulse Rate 62 70 Respiratory Rate Blood Pressure 94/45 102/48 (mmHg) O2 Sat by Pulse 95 90 Oximetry 02/25/19 02/25/19 02/25/19 10:49 10:56 10:59 Temperature Pulse Rate 65 Respiratory 20 Rate Blood Pressure 109/50 104/50 102/48 (mmHg) O2 Sat by Pulse 96 Oximetry 02/25/19 02/25/19 02/25/19 11:15 11:25 11:55 Temperature Pulse Rate Respiratory 20 Rate Blood Pressure 108/59 108/60 (mmHg) O2 Sat by Pulse Oximetry 02/25/19 02/25/19 02/25/19 12:26 12:55 13:25 Temperature Pulse Rate Respiratory Rate Blood Pressure 100/53 100/69 107/57 (mmHg) O2 Sat by Pulse Oximetry 02/25/19 02/25/19 02/25/19 13:55 14:25 15:15 Temperature 98.2 F Pulse Rate 74 Respiratory 20 Rate Blood Pressure 102/66 107/60 (mmHg) O2 Sat by Pulse Oximetry 02/25/19 02/25/19 02/25/19 15:25 15:55 16:25 Temperature Pulse Rate Respiratory Rate Blood Pressure 117/54 117/50 106/58 (mmHg) O2 Sat by Pulse Oximetry 02/25/19 16:55 Temperature Pulse Rate Respiratory Rate Blood Pressure 113/65 (mmHg) O2 Sat by Pulse Oximetry Oxygen Devices in Use Now: OxyMask Exam: Patient is sitting on a chair with no acute distress HEENT: Bruise on left periorbital area and in chin Lungs: crackles heard in bilateral lungs Heart: normal rate; irregular rhythm Abdomen: soft, nondistended and nontender Extremities; bruise on both knee. dark discoloration of both lower limb with scaling and pitting edema skin: redness on lower abdominal skin fold Neuro: Alert, consious and oriented Result Diagrams: 02/25/19 04:04 02/25/19 04:03 Additional Lab and Data: Lab Results 02/23/19 02/23/19 02/23/19 Range/Units 12:52 12:52 13:35 WBC 8.2 (3.5-10.8) 10^3/uL RBC 4.44 (3.70-4.87) 10^6 /uL Hgb 13.8 (12.0-16.0) g/dL Hct 42 (35-47) % MCV 93 (80-97) fL MCH 31 (27-31) pg MCHC 33 (31-36) g/dL RDW 15 (10-15) % Plt Count 159 (150-450) 10^3/uL MPV 7.5 (7.4-10.4) fL Neut % (Auto) 87.5 % Lymph % (Auto) 4.5 % [place] % (Auto) 5.4 % Eos % (Auto) 1.4 % Baso % (Auto) 1.2 % Absolute Neuts (auto) 7.1 (1.5-7.7) 10^3/ul Absolute Lymphs (auto) 0.4 L (1.0-4.8) 10^3/ul Absolute Monos (auto) 0.4 (0-0.8) 10^3/ul Absolute Eos (auto) 0.1 (0-0.6) 10^3/ul Absolute Basos (auto) 0.1 (0-0.2) 10^3/ul Absolute Nucleated RBC 0.0 10^3/ul Nucleated RBC % 0.1 INR (Anticoag Therapy) (0.82-1.09) Sodium 134 L (135-145) mmol/L Potassium 4.4 (3.5-5.0) mmol/L Chloride 101 (101-111) mmol/L Carbon Dioxide 24 (22-32) mmol/L Anion Gap 9 (2-11) mmol/L BUN 26 H (6-24) mg/dL Creatinine 1.42 H (0.51-0.95) mg/dL Est GFR ( Amer) 43.9 (>60) Est GFR (Non-Af Amer) 36.3 (>60) BUN/Creatinine Ratio 18.3 (8-20) Glucose 131 H (70-100) mg/dL Lactic Acid 1.9 (0.5-2.0) mmol/L Calcium 9.2 (8.6-10.3) mg/dL Magnesium 0.9 L* (1.9-2.7) mg/dL Total Bilirubin 1.30 H (0.2-1.0) mg/dL AST 8 L (13-39) U/L ALT 4 L (7-52) U/L Alkaline Phosphatase 73 (34-104) U/L Troponin I 0.03 (<0.04) ng/mL Total Protein 6.7 (6.4-8.9) g/dL Albumin 3.7 (3.2-5.2) g/dL Globulin 3.0 (2-4) g/dL Albumin/Globulin Ratio 1.2 (1-3) 02/23/19 Range/Units 13:35 WBC (3.5-10.8) 10^3/uL RBC (3.70-4.87) 10^6 /uL Hgb (12.0-16.0) g/dL Hct (35-47) % MCV (80-97) fL MCH (27-31) pg MCHC (31-36) g/dL RDW (10-15) % Plt Count (150-450) 10^3/uL MPV (7.4-10.4) fL Neut % (Auto) % Lymph % (Auto) % [place] % (Auto) % Eos % (Auto) % Baso % (Auto) % Absolute Neuts (auto) (1.5-7.7) 10^3/ul Absolute Lymphs (auto) (1.0-4.8) 10^3/ul Absolute Monos (auto) (0-0.8) 10^3/ul Absolute Eos (auto) (0-0.6) 10^3/ul Absolute Basos (auto) (0-0.2) 10^3/ul Absolute Nucleated RBC 10^3/ul Nucleated RBC % INR (Anticoag Therapy) 1.71 H (0.82-1.09) Sodium (135-145) mmol/L Potassium (3.5-5.0) mmol/L Chloride (101-111) mmol/L Carbon Dioxide (22-32) mmol/L Anion Gap (2-11) mmol/L BUN (6-24) mg/dL Creatinine (0.51-0.95) mg/dL Est GFR ( Amer) (>60) Est GFR (Non-Af Amer) (>60) BUN/Creatinine Ratio (8-20) Glucose (70-100) mg/dL Lactic Acid (0.5-2.0) mmol/L Calcium (8.6-10.3) mg/dL Magnesium (1.9-2.7) mg/dL Total Bilirubin (0.2-1.0) mg/dL AST (13-39) U/L ALT (7-52) U/L Alkaline Phosphatase (34-104) U/L Troponin I (<0.04) ng/mL Total Protein (6.4-8.9) g/dL Albumin (3.2-5.2) g/dL Globulin (2-4) g/dL Albumin/Globulin Ratio (1-3) Assess/Plan/Problems-Billing Assessment: 73 y/o F with h/o COPD(2L of o2 at night),HRpEF, Chronic Afib(on atenolol, dilti and eliquis), HTN,DM and tobacco use presented with acute bilateral knee pain and b/l LE spasm after fall 1 day ago. Found to have AF with RVR, hypomagnesemia, Rt pleural effusion and atelectasis and hypoxia. c/b hypotension and bradycardia - Patient Problems (1) Hypotension Current Visit: Yes Status: Acute Comment: -improving -we will monitor BP (2) Hypoxia Current Visit: Yes Status: Acute Code(s): R09.02 - HYPOXEMIA SNOMED Code(s ): 244214817 Comment: -Has SOB -was in oxygen(2L) at home only at night -is requiring 5L of oxygen at present even during day to maintain saturation -possibility- acute on chronic HF, Pleural effusion, atelectasis; less likely PE as patient is already in therapeutic anticoagulation and even if PE tx would be same -cant give lasix now s she is hypotensive -if her bp becomes normal- then we will gently diurese her. (3) Knee pain Current Visit: Yes Status: Acute Code(s): M25.569 - PAIN IN UNSPECIFIED KNEE SNOMED Code(s): 37434341 Comment: -mild pain- after fall -XRay didnot show any fracture -has some bruising -tylenol prn (4) Atrial fibrillation Current Visit: No Status: Acute Code(s): I48.91 - UNSPECIFIED ATRIAL FIBRILLATION SNOMED Code(s): 87902875 Comment: -RVR in admission; -controlled with one dose of atenolol PO in ED -now rate controlled; rhythm still irregular -atenolol and diltiazem stopped was pt became sherrie and having frequent pauses -will monitor her at present -on eliquis (5) Pleural effusion Current Visit: Yes Status: Acute Code(s): J90 - PLEURAL EFFUSION, NOT ELSEWHERE CLASSIFIED SNOMED Code(s): 95164544 Comment: -has right sided pleural effusion with atlectasis -has effusion since september -thoracentesis was done in september and was negative for any malignany -transudative secondary to heart failure -we will treat HF and see if it improves -if doesnt improve then thoracentesis can be done to relieve hypoxia (6) CHF (congestive heart failure) Current Visit: No Status: Acute Code(s): I50.9 - HEART FAILURE, UNSPECIFIED SNOMED Code(s): 56849908 Comment: -acute on chronic diastolic HF -likely ppt by AF with RVR -has sob and lowe limb swelling and crackles -echo done in 09/2018- EF of60-65% with severe LA dilatation with moderate to severe calcification of mitral valve and mild dynamic obstruction of LV. -I and O daily -daily weight -cant give lasix at present- because of hypotensn (7) HTN (hypertension) Current Visit: No Status: Acute Code(s): I10 - ESSENTIAL (PRIMARY) HYPERTENSION SNOMED Code(s): 57752663 Comment: -well controlled'-on soft side -we will continue to monitor (8) UTI (urinary tract infection) Current Visit: Yes Status: Acute Comment: -asymptomatic -urinalaysis shows blood with leucocyte esterase with nitrates but no bacteria -urine culture positive for E. coli -started ceftriaxone(day 2 on 11/07) (9) Diabetes Current Visit: No Status: Acute Code(s): E11.9 - TYPE 2 DIABETES MELLITUS WITHOUT COMPLICATIONS SNOMED Code(s): 33101020 Comment: -has prediabetes hba1c is 6.0 (10) Lung nodule Current Visit: No Status: Acute Code(s): R91.1 - SOLITARY PULMONARY NODULE SNOMED Code(s): 994557486 Comment: -unchanged from previous scan in september -also has pleural effusion; negative for malignancy in [place] -follow up with repeat CT in 6 month and consult with pulmonology (11) DVT prophylaxis Current Visit: No Status: Acute Code(s): CVG4923 - SNOMED Code(s): 388024502 Comment: on eliquis Status and Disposition: Inpatient Attending: Robinson Lynch Attestation Documenting Resident: Jimena Peralta Supervising Physician: Robinson Lynch Attending/Supervising Physician Comment: Agree with plan as outlined in note from today unless indicated here. Hypotension - thought iatrogenic in setting of mediation administration. Medications confirmed with cardiology and PCP office. Notable differences from discharge in September include increased atenolol and addition of diltiazem which were changed in [place] due to bradycardia. We also elected to treat positive urine culture in setting of hypotension. Hypoxic respiratory failure - pleural effusion, acute decompensated CHF, atalectasis. Plan diuresis. May need thoracentesis if fails diuresis. I suspect she has some oxygen requirement at home. Attestation: This service has been performed in part by a resident under the direction of a teaching physician.I, Robinson Lynch, performed the service, or was physically present during the critical, or locke portions of the service, furnished by the resident. I participated in the management of the patient.
[2019-02-25] MEDS: traMADol TAB* 50 MG PO PRN (21:13)
[2019-02-25] MEDS: Nicotine Patch Removal NOTE FOLLOW UP SCH (21:15)
[2019-02-26 04:29] LABS: ABS Eosinophils 0.2 10^3/ul (0-0.6); ABS Lymphocytes 0.3 10^3/ul (1.0-4.8); ABS Monocytes 0.5 10^3/ul (0-0.8); ABS Neutrophils 4.1 10^3/ul (1.5-7.7); Eosinophil % 3.6 %; Hematocrit 35 % (35-47); Hemoglobin 11.8 g/dL (12.0-16.0); Lymphocyte % 6.5 %; Mean Corpuscular HGB Conc 33 g/dL (31-36); Mean Corpuscular Hemoglobin 31 pg (27-31); Mean Corpuscular Volume 94 fL (80-97); Mean Platelet Volume 7.6 fL (7.4-10.4); Platelet Count 157 10^3/uL (150-450); Red Blood Count 3.76 10^6 /uL (3.70-4.87); Red Cell Distribution Width 16 % (10-15); White Blood Count 5.1 10^3/uL (3.5-10.8)
[2019-02-26 04:42] LABS: BUN/Creatinine Ratio 24.8 (8-20); Calcium 8.5 mg/dL (8.6-10.3); EGFR African American 42.8 (>60); EGFR Non-African American 35.4 (>60); Potassium 4.2 mmol/L (3.5-5.0)
--- NOTE | 2019-02-26 06:32 | PN ---
Subjective Date of Service: 02/26/19 Interval History: HD 4 on 02/26 Overnight- No acute events VS stable Patient does not have any complains. SHe does not chest pain, SOB, palpitation or lightheadedness. patient was sleepy but aroused after verbal command. was alert On 4L of oxygen Objective Active Medications: Acetaminophen (Tylenol Tab*) 650 mg PO Q4H PRN PRN Reason: MILD PAIN or TEMP > 100.4 Last Admin: 02/25/19 23:00 Dose: 650 mg Al Hydrox/Mg Hydrox/Simethicone (Maalox Plus*) 30 ml PO Q6H PRN PRN Reason: INDIGESTION Albuterol (Ventolin Hfa Inhaler*) 2 puff INH Q4H PRN PRN Reason: SHORTNESS OF BREATH Apixaban (Eliquis*) 5 mg PO BID [facility] Last Admin: 02/25/19 21:13 Dose: 5 mg Citalopram Hydrobromide (Celexa Tab*) 40 mg PO DAILY [facility] Last Admin: 02/25/19 09:01 Dose: 40 mg Cyanocobalamin (Vitamin B12 Tab*) 1,000 mcg PO DAILY [facility] Last Admin: 02/25/19 09:01 Dose: 1,000 mcg Ferrous Sulfate (Ferrous Sulfate Tab*) 325 mg PO DAILY [facility] Last Admin: 02/25/19 09:01 Dose: 325 mg Ceftriaxone Sodium 1 gm/ (Sodium Chloride) 50 mls @ 100 mls/hr IVPB Q24H [facility] Last Admin: 02/25/19 15:09 Dose: 100 mls/hr Montelukast Sodium (Singulair Tab*) 10 mg PO DAILY [facility] Last Admin: 02/25/19 09:01 Dose: 10 mg Nicotine (Nicotine Patch 21 Mg/24 Hr*) 1 patch TRANSDERM DAILY@0800 [facility] Last Admin: 02/25/19 09:01 Dose: 1 patch Nft: Urea-C40 Cream (40% 1 Applic) 1 applic TOPICAL DAILY [facility] Last Admin: 02/25/19 09:05 Dose: Not Given Nystatin (Nystatin Top Powder*) 1 applic TOPICAL TID [facility] Last Admin: 02/25/19 21:15 Dose: 1 applic Ondansetron HCl (Zofran Inj*) 4 mg IV Q4H PRN PRN Reason: NAUSEA/VOMITING Pantoprazole Sodium (Protonix Tab*) 40 mg PO BID [facility] Last Admin: 02/25/19 21:13 Dose: 40 mg Pharmacy Profile Note (Nicotine Patch Removal Note*) 1 note FOLLOW UP 2100 [facility] Last Admin: 02/25/19 21:15 Dose: 1 note Senna (Senokot 8.6 Mg Tab*) 1 tab PO BID PRN PRN Reason: CONSTIPATION Tiotropium [place] (Spiriva Respimat 2.5 Mcg) 2 puff INH DAILY [facility] Last Admin: 02/25/19 07:50 Dose: 2 puff Tramadol HCl (Ultram*) 50 mg PO Q6HR PRN PRN Reason: PAIN Last Admin: 02/25/19 21:13 Dose: 50 mg Vital Signs - 8 hr 02/25/19 02/25/19 02/25/19 22:55 23:04 23:25 Temperature Pulse Rate Respiratory 16 Rate Blood Pressure 115/66 108/57 (mmHg) O2 Sat by Pulse Oximetry 02/25/19 02/26/19 02/26/19 23:55 00:03 00:25 Temperature 97.1 F Pulse Rate 80 Respiratory 16 Rate Blood Pressure 131/75 121/59 (mmHg) O2 Sat by Pulse 97 Oximetry 02/26/19 02/26/19 02/26/19 00:55 03:24 04:00 Temperature Pulse Rate 80 68 Respiratory Rate Blood Pressure 114/61 131/71 (mmHg) O2 Sat by Pulse 91 92 Oximetry 02/26/19 02/26/19 02/26/19 04:03 05:00 05:24 Temperature 97.2 F Pulse Rate 67 78 86 Respiratory 18 Rate Blood Pressure 121/60 (mmHg) O2 Sat by Pulse 93 94 93 Oximetry Oxygen Devices in Use Now: Nasal Cannula, OxyMask Exam: Patient is sitting on a chair with no acute distress HEENT: Bruise on left periorbital area and in chin Lungs: crackles heard in bilateral lungs; dull on percussion in lower right base Heart: normal rate; irregular rhythm Abdomen: soft, nondistended and nontender Extremities; bruise on both knee. dark discoloration of both lower limb with scaling and edema skin: redness on lower abdominal skin fold Neuro: Alert, consious and oriented Result Diagrams: 02/26/19 03:54 02/26/19 03:54 Additional Lab and Data: Lab Results 02/23/19 02/23/19 02/23/19 Range/Units 12:52 12:52 13:35 WBC 8.2 (3.5-10.8) 10^3/uL RBC 4.44 (3.70-4.87) 10^6 /uL Hgb 13.8 (12.0-16.0) g/dL Hct 42 (35-47) % MCV 93 (80-97) fL MCH 31 (27-31) pg MCHC 33 (31-36) g/dL RDW 15 (10-15) % Plt Count 159 (150-450) 10^3/uL MPV 7.5 (7.4-10.4) fL Neut % (Auto) 87.5 % Lymph % (Auto) 4.5 % [place] % (Auto) 5.4 % Eos % (Auto) 1.4 % Baso % (Auto) 1.2 % Absolute Neuts (auto) 7.1 (1.5-7.7) 10^3/ul Absolute Lymphs (auto) 0.4 L (1.0-4.8) 10^3/ul Absolute Monos (auto) 0.4 (0-0.8) 10^3/ul Absolute Eos (auto) 0.1 (0-0.6) 10^3/ul Absolute Basos (auto) 0.1 (0-0.2) 10^3/ul Absolute Nucleated RBC 0.0 10^3/ul Nucleated RBC % 0.1 INR (Anticoag Therapy) (0.82-1.09) Sodium 134 L (135-145) mmol/L Potassium 4.4 (3.5-5.0) mmol/L Chloride 101 (101-111) mmol/L Carbon Dioxide 24 (22-32) mmol/L Anion Gap 9 (2-11) mmol/L BUN 26 H (6-24) mg/dL Creatinine 1.42 H (0.51-0.95) mg/dL Est GFR ( Amer) 43.9 (>60) Est GFR (Non-Af Amer) 36.3 (>60) BUN/Creatinine Ratio 18.3 (8-20) Glucose 131 H (70-100) mg/dL Lactic Acid 1.9 (0.5-2.0) mmol/L Calcium 9.2 (8.6-10.3) mg/dL Magnesium 0.9 L* (1.9-2.7) mg/dL Total Bilirubin 1.30 H (0.2-1.0) mg/dL AST 8 L (13-39) U/L ALT 4 L (7-52) U/L Alkaline Phosphatase 73 (34-104) U/L Troponin I 0.03 (<0.04) ng/mL Total Protein 6.7 (6.4-8.9) g/dL Albumin 3.7 (3.2-5.2) g/dL Globulin 3.0 (2-4) g/dL Albumin/Globulin Ratio 1.2 (1-3) 02/23/19 Range/Units 13:35 WBC (3.5-10.8) 10^3/uL RBC (3.70-4.87) 10^6 /uL Hgb (12.0-16.0) g/dL Hct (35-47) % MCV (80-97) fL MCH (27-31) pg MCHC (31-36) g/dL RDW (10-15) % Plt Count (150-450) 10^3/uL MPV (7.4-10.4) fL Neut % (Auto) % Lymph % (Auto) % [place] % (Auto) % Eos % (Auto) % Baso % (Auto) % Absolute Neuts (auto) (1.5-7.7) 10^3/ul Absolute Lymphs (auto) (1.0-4.8) 10^3/ul Absolute Monos (auto) (0-0.8) 10^3/ul Absolute Eos (auto) (0-0.6) 10^3/ul Absolute Basos (auto) (0-0.2) 10^3/ul Absolute Nucleated RBC 10^3/ul Nucleated RBC % INR (Anticoag Therapy) 1.71 H (0.82-1.09) Sodium (135-145) mmol/L Potassium (3.5-5.0) mmol/L Chloride (101-111) mmol/L Carbon Dioxide (22-32) mmol/L Anion Gap (2-11) mmol/L BUN (6-24) mg/dL Creatinine (0.51-0.95) mg/dL Est GFR ( Amer) (>60) Est GFR (Non-Af Amer) (>60) BUN/Creatinine Ratio (8-20) Glucose (70-100) mg/dL Lactic Acid (0.5-2.0) mmol/L Calcium (8.6-10.3) mg/dL Magnesium (1.9-2.7) mg/dL Total Bilirubin (0.2-1.0) mg/dL AST (13-39) U/L ALT (7-52) U/L Alkaline Phosphatase (34-104) U/L Troponin I (<0.04) ng/mL Total Protein (6.4-8.9) g/dL Albumin (3.2-5.2) g/dL Globulin (2-4) g/dL Albumin/Globulin Ratio (1-3) Assess/Plan/Problems-Billing Assessment: 73 y/o F with h/o COPD(2L of o2 at night),HRpEF, Chronic Afib(on atenolol, dilti and eliquis), HTN,DM and tobacco use presented with acute bilateral knee pain and b/l LE spasm after fall 1 day ago. Found to have AF with RVR, hypomagnesemia, Rt pleural effusion and atelectasis and hypoxia. c/b hypotension and bradycardia - Patient Problems (1) Hypotension Current Visit: Yes Status: Acute Comment: -improved; resolved (2) Hypoxia Current Visit: Yes Status: Acute Code(s): R09.02 - HYPOXEMIA SNOMED Code(s ): 775482815 Comment: -Has SOB -was in oxygen(2L) at home only at night -is requiring 4L of oxygen at present even during day to maintain saturation -possibility- acute on chronic HF, Pleural effusion, atelectasis; less likely PE as patient is already in therapeutic anticoagulation and even if PE tx would be same -we will start her on gentle diuretics-lasix 40 from tomorrow as metoprolol started today on low dose(patient HR was in 80-90) (3) Knee pain Current Visit: Yes Status: Acute Code(s): M25.569 - PAIN IN UNSPECIFIED KNEE SNOMED Code(s): 81495759 Comment: -mild pain- after fall -XRay didnot show any fracture -has some bruising -tylenol prn (4) Atrial fibrillation Current Visit: No Status: Acute Code(s): I48.91 - UNSPECIFIED ATRIAL FIBRILLATION SNOMED Code(s): 12901609 Comment: -RVR in admission; -controlled with one dose of atenolol PO in ED -now rate controlled; rhythm still irregular -atenolol and diltiazem stopped was pt became sherrie and having frequent pauses -Today HR is 80-90 so we will start her on low dose of metoprolol; we will monitor her for bradycardia -on eliquis (5) Pleural effusion Current Visit: Yes Status: Acute Code(s): J90 - PLEURAL EFFUSION, NOT ELSEWHERE CLASSIFIED SNOMED Code(s): 39929766 Comment: -has right sided pleural effusion with atlectasis -has effusion since september -thoracentesis was done in september and was negative for any malignany -transudative secondary to heart failure -we will treat HF and see if it improves -if doesnt improve then thoracentesis can be done to relieve hypoxia (6) CHF (congestive heart failure) Current Visit: No Status: Acute Code(s): I50.9 - HEART FAILURE, UNSPECIFIED SNOMED Code(s): 07734684 Comment: -acute on chronic diastolic HF -likely ppt by AF with RVR -has sob and lowe limb swelling and crackles -echo done in 09/2018- EF of60-65% with severe LA dilatation with moderate to severe calcification of mitral valve and mild dynamic obstruction of LV. -I and O daily -daily weight -we will start her on lasix tomorrow (7) HTN (hypertension) Current Visit: No Status: Acute Code(s): I10 - ESSENTIAL (PRIMARY) HYPERTENSION SNOMED Code(s): 76181330 Comment: -well controlled'-on soft side -we will continue to monitor (8) UTI (urinary tract infection) Current Visit: Yes Status: Acute Comment: -asymptomatic -urinalaysis shows blood with leucocyte esterase with nitrates but no bacteria -urine culture positive for E. coli -started ceftriaxone(day 3 on 02/26) (9) Diabetes Current Visit: No Status: Acute Code(s): E11.9 - TYPE 2 DIABETES MELLITUS WITHOUT COMPLICATIONS SNOMED Code(s): 16179295 Comment: -has prediabetes hba1c is 6.0 (10) Lung nodule Current Visit: No Status: Acute Code(s): R91.1 - SOLITARY PULMONARY NODULE SNOMED Code(s): 761477345 Comment: -unchanged from previous scan in september -also has pleural effusion; negative for malignancy in september -follow up with repeat CT in 6 month and consult with pulmonology (11) DVT prophylaxis Current Visit: No Status: Acute Code(s): KIE8226 - SNOMED Code(s): 143212399 Comment: on eliquis Status and Disposition: Inpatient Attending: Asia Avendano Attestation Documenting Resident: Jimena Peralta Supervising Physician: Asia Avendano Attestation: This service has been performed in part by a resident under the direction of a teaching physician.I, Asia Avendano, performed the service, or was physically present during the critical, or locke portions of the service, furnished by the resident. I participated in the management of the patient.
[2019-02-26] MEDS: SPIRIVA Respimat* (tiotropium) 2.5 mcg/inh Inhaler INH SCH (07:54)
[2019-02-26] MEDS: Nicotine PATCH 21 MG/24 HR* PATCH TRANSDERM SCH (08:09)
[2019-02-26] MEDS: Nystatin TOP POWDER* 15 GM BTL TOPICAL SCH ×3 (08:15→20:46)
[2019-02-26] MEDS: Apixaban* 5 MG TAB PO SCH ×2 (08:15→20:45)
[2019-02-26] MEDS: Montelukast Sodium TAB* 10 MG PO SCH (08:16)
[2019-02-26] MEDS: Pantoprazole TAB * 40 MG TAB PO SCH (08:16)
[2019-02-26] MEDS: Citalopram TAB* 40 MG PO SCH (08:17)
[2019-02-26] MEDS: Cyanocobalamin TAB* 500 MCG PO SCH (08:17)
[2019-02-26] MEDS: Ferrous Sulfate TAB* 325 MG PO SCH (08:17)
[2019-02-26] MEDS: [UNRECOGNIZED DRUG - OTHER] TOPICAL SCH (08:18)
[2019-02-26] MEDS: UREA TOPICAL SCH (08:18)
[2019-02-26] MEDS ORDERED: Lorazepam PYXIS KEY ONE (09:50)
[2019-02-26 16:05] LABS: TSH (Thyroid Stimulating Horm) 3.51 mcIU/mL (0.34-5.60)
[2019-02-26] MEDS: Metoprolol Tartrate TAB* 25 MG PO SCH (16:32)
[2019-02-26] MEDS: traMADol TAB* 50 MG PO PRN ×2 (16:38→23:25)
[2019-02-26] MEDS: Acetaminophen TAB* 325 MG PO PRN (20:45)
[2019-02-26] MEDS: Nicotine Patch Removal NOTE FOLLOW UP SCH (20:51)
[2019-02-27 04:48] LABS: ABS Eosinophils 0.2 10^3/ul (0-0.6); ABS Lymphocytes 0.3 10^3/ul (1.0-4.8); ABS Monocytes 0.3 10^3/ul (0-0.8); ABS Neutrophils 3.5 10^3/ul (1.5-7.7); Eosinophil % 5.4 %; Hematocrit 36 % (35-47); Lymphocyte % 6.5 %; Mean Corpuscular HGB Conc 33 g/dL (31-36); Mean Corpuscular Hemoglobin 31 pg (27-31); Mean Corpuscular Volume 93 fL (80-97); Mean Platelet Volume 7.5 fL (7.4-10.4); Nucleated Red Blood Cells % 0.1; Platelet Count 157 10^3/uL (150-450); Red Blood Count 3.88 10^6 /uL (3.70-4.87); Red Cell Distribution Width 16 % (10-15); White Blood Count 4.4 10^3/uL (3.5-10.8)
[2019-02-27 05:07] LABS: Calcium 8.8 mg/dL (8.6-10.3); EGFR African American 49.5 (>60); EGFR Non-African American 40.9 (>60); Potassium 4.1 mmol/L (3.5-5.0)
[2019-02-27] MEDS: Furosemide TAB* 40 MG PO SCH (06:22)
--- NOTE | 2019-02-27 06:48 | PN ---
Subjective Date of Service: 02/27/19 Interval History: HD 5 on 02/27 Overnight- No acute events VS stable Patient does not have any complaint. She was inquiring about going home requiring 4L of oxygen to maintain saturation Objective Active Medications: Acetaminophen (Tylenol Tab*) 650 mg PO Q4H PRN PRN Reason: MILD PAIN or TEMP > 100.4 Last Admin: 02/26/19 20:45 Dose: 650 mg Al Hydrox/Mg Hydrox/Simethicone (Maalox Plus*) 30 ml PO Q6H PRN PRN Reason: INDIGESTION Albuterol (Ventolin Hfa Inhaler*) 2 puff INH Q4H PRN PRN Reason: SHORTNESS OF BREATH Apixaban (Eliquis*) 5 mg PO BID [facility] Last Admin: 02/26/19 20:45 Dose: 5 mg Citalopram Hydrobromide (Celexa Tab*) 40 mg PO DAILY [facility] Last Admin: 02/26/19 08:17 Dose: 40 mg Cyanocobalamin (Vitamin B12 Tab*) 1,000 mcg PO DAILY [facility] Last Admin: 02/26/19 08:17 Dose: 1,000 mcg Ferrous Sulfate (Ferrous Sulfate Tab*) 325 mg PO DAILY [facility] Last Admin: 02/26/19 08:17 Dose: 325 mg Furosemide (Lasix Tab*) 40 mg PO 0600 [facility] Last Admin: 02/27/19 06:22 Dose: 40 mg Metoprolol Tartrate (Lopressor Tab*) 12.5 mg PO Q12HR [facility] Last Admin: 02/26/19 16:32 Dose: 12.5 mg Nicotine (Nicotine Patch 21 Mg/24 Hr*) 1 patch TRANSDERM DAILY@0800 [facility] Last Admin: 02/26/19 08:09 Dose: 1 patch Nft: Urea-C40 Cream (40% 1 Applic) 1 applic TOPICAL DAILY [facility] Last Admin: 02/26/19 08:18 Dose: Not Given Nystatin (Nystatin Top Powder*) 1 applic TOPICAL TID [facility] Last Admin: 02/26/19 20:46 Dose: 1 applic Ondansetron HCl (Zofran Inj*) 4 mg IV Q4H PRN PRN Reason: NAUSEA/VOMITING Pantoprazole Sodium (Protonix Tab*) 40 mg PO DAILY [facility] Pharmacy Profile Note (Nicotine Patch Removal Note*) 1 note FOLLOW UP 2100 [facility] Last Admin: 02/26/19 20:51 Dose: 1 note Senna (Senokot 8.6 Mg Tab*) 1 tab PO BID PRN PRN Reason: CONSTIPATION Tiotropium [place] (Spiriva Respimat 2.5 Mcg) 2 puff INH DAILY [facility] Last Admin: 02/26/19 07:54 Dose: Not Given Tramadol HCl (Ultram*) 50 mg PO Q6HR PRN PRN Reason: PAIN Last Admin: 02/26/19 23:25 Dose: 50 mg Vital Signs - 8 hr 02/26/19 02/26/19 02/27/19 23:09 23:25 04:05 Temperature 98.1 F 98.5 F Pulse Rate 65 71 Respiratory 18 16 16 Rate Blood Pressure 96/67 106/49 (mmHg) O2 Sat by Pulse 97 94 Oximetry Oxygen Devices in Use Now: Nasal Cannula, OxyMask Exam: Patient is lying in a bed without acute distress HEENT: Bruise on left periorbital area and in chin Lungs: clear; decreased breath sound on right side; dull on percussion in lower right base Heart: normal rate; irregular rhythm Abdomen: soft, nondistended and nontender Extremities; bruise on both knee. dark discoloration of both lower limb with scaling and edema skin: redness on lower abdominal skin fold Neuro: Alert, consious and oriented Result Diagrams: 02/27/19 04:23 02/27/19 04:23 Additional Lab and Data: Lab Results 02/23/19 02/23/19 02/23/19 Range/Units 12:52 12:52 13:35 WBC 8.2 (3.5-10.8) 10^3/uL RBC 4.44 (3.70-4.87) 10^6 /uL Hgb 13.8 (12.0-16.0) g/dL Hct 42 (35-47) % MCV 93 (80-97) fL MCH 31 (27-31) pg MCHC 33 (31-36) g/dL RDW 15 (10-15) % Plt Count 159 (150-450) 10^3/uL MPV 7.5 (7.4-10.4) fL Neut % (Auto) 87.5 % Lymph % (Auto) 4.5 % [place] % (Auto) 5.4 % Eos % (Auto) 1.4 % Baso % (Auto) 1.2 % Absolute Neuts (auto) 7.1 (1.5-7.7) 10^3/ul Absolute Lymphs (auto) 0.4 L (1.0-4.8) 10^3/ul Absolute Monos (auto) 0.4 (0-0.8) 10^3/ul Absolute Eos (auto) 0.1 (0-0.6) 10^3/ul Absolute Basos (auto) 0.1 (0-0.2) 10^3/ul Absolute Nucleated RBC 0.0 10^3/ul Nucleated RBC % 0.1 INR (Anticoag Therapy) (0.82-1.09) Sodium 134 L (135-145) mmol/L Potassium 4.4 (3.5-5.0) mmol/L Chloride 101 (101-111) mmol/L Carbon Dioxide 24 (22-32) mmol/L Anion Gap 9 (2-11) mmol/L BUN 26 H (6-24) mg/dL Creatinine 1.42 H (0.51-0.95) mg/dL Est GFR ( Amer) 43.9 (>60) Est GFR (Non-Af Amer) 36.3 (>60) BUN/Creatinine Ratio 18.3 (8-20) Glucose 131 H (70-100) mg/dL Lactic Acid 1.9 (0.5-2.0) mmol/L Calcium 9.2 (8.6-10.3) mg/dL Magnesium 0.9 L* (1.9-2.7) mg/dL Total Bilirubin 1.30 H (0.2-1.0) mg/dL AST 8 L (13-39) U/L ALT 4 L (7-52) U/L Alkaline Phosphatase 73 (34-104) U/L Troponin I 0.03 (<0.04) ng/mL Total Protein 6.7 (6.4-8.9) g/dL Albumin 3.7 (3.2-5.2) g/dL Globulin 3.0 (2-4) g/dL Albumin/Globulin Ratio 1.2 (1-3) 02/23/19 Range/Units 13:35 WBC (3.5-10.8) 10^3/uL RBC (3.70-4.87) 10^6 /uL Hgb (12.0-16.0) g/dL Hct (35-47) % MCV (80-97) fL MCH (27-31) pg MCHC (31-36) g/dL RDW (10-15) % Plt Count (150-450) 10^3/uL MPV (7.4-10.4) fL Neut % (Auto) % Lymph % (Auto) % [place] % (Auto) % Eos % (Auto) % Baso % (Auto) % Absolute Neuts (auto) (1.5-7.7) 10^3/ul Absolute Lymphs (auto) (1.0-4.8) 10^3/ul Absolute Monos (auto) (0-0.8) 10^3/ul Absolute Eos (auto) (0-0.6) 10^3/ul Absolute Basos (auto) (0-0.2) 10^3/ul Absolute Nucleated RBC 10^3/ul Nucleated RBC % INR (Anticoag Therapy) 1.71 H (0.82-1.09) Sodium (135-145) mmol/L Potassium (3.5-5.0) mmol/L Chloride (101-111) mmol/L Carbon Dioxide (22-32) mmol/L Anion Gap (2-11) mmol/L BUN (6-24) mg/dL Creatinine (0.51-0.95) mg/dL Est GFR ( Amer) (>60) Est GFR (Non-Af Amer) (>60) BUN/Creatinine Ratio (8-20) Glucose (70-100) mg/dL Lactic Acid (0.5-2.0) mmol/L Calcium (8.6-10.3) mg/dL Magnesium (1.9-2.7) mg/dL Total Bilirubin (0.2-1.0) mg/dL AST (13-39) U/L ALT (7-52) U/L Alkaline Phosphatase (34-104) U/L Troponin I (<0.04) ng/mL Total Protein (6.4-8.9) g/dL Albumin (3.2-5.2) g/dL Globulin (2-4) g/dL Albumin/Globulin Ratio (1-3) Assess/Plan/Problems-Billing Assessment: 73 y/o F with h/o COPD(2L of o2 at night),HRpEF, Chronic Afib(on atenolol, dilti and eliquis), HTN,DM and tobacco use presented with acute bilateral knee pain and b/l LE spasm after fall 1 day ago. Found to have AF with RVR, hypomagnesemia, Rt pleural effusion and atelectasis and hypoxia. c/b hypotension and bradycardia; improving - Patient Problems (1) Hypoxia Current Visit: Yes Status: Acute Code(s): R09.02 - HYPOXEMIA SNOMED Code(s ): 552445989 Comment: -Has SOB -was in oxygen(2L) at home only at night -is requiring 4L of oxygen at present even during day to maintain saturation -possibility- acute on chronic HF, Pleural effusion, atelectasis; less likely PE as patient is already in therapeutic anticoagulation and even if PE tx would be same -we will treat her HF first and if does not improve may need thoracentesis (2) Knee pain Current Visit: Yes Status: Acute Code(s): M25.569 - PAIN IN UNSPECIFIED KNEE SNOMED Code(s): 88725941 Comment: -mild pain- after fall -XRay didnot show any fracture -has some bruising -tylenol prn (3) Atrial fibrillation Current Visit: No Status: Acute Code(s): I48.91 - UNSPECIFIED ATRIAL FIBRILLATION SNOMED Code(s): 24708124 Comment: -RVR in admission; -controlled with one dose of atenolol PO in ED -now rate controlled; rhythm still irregular -atenolol and diltiazem stopped was pt became sherrie and having frequent pauses -tolerating metoprolol well; we will titrate according to HR -on eliquis (4) Pleural effusion Current Visit: Yes Status: Acute Code(s): J90 - PLEURAL EFFUSION, NOT ELSEWHERE CLASSIFIED SNOMED Code(s): 98961628 Comment: -has right sided pleural effusion with atlectasis -has effusion since september -thoracentesis was done in september and was negative for any malignany -transudative secondary to heart failure -we will treat HF and see if it improves -if doesnt improve then thoracentesis can be done to relieve hypoxia (5) CHF (congestive heart failure) Current Visit: No Status: Acute Code(s): I50.9 - HEART FAILURE, UNSPECIFIED SNOMED Code(s): 85966081 Comment: -acute on chronic diastolic HF -likely ppt by AF with RVR -has sob and lowe limb swelling and crackles -echo done in 09/2018- EF of 60-65% with severe LA dilatation with moderate to severe calcification of mitral valve and mild dynamic obstruction of LV. -I and O daily -daily weight -on lasix 40 mg; tolerating well (6) HTN (hypertension) Current Visit: No Status: Acute Code(s): I10 - ESSENTIAL (PRIMARY) HYPERTENSION SNOMED Code(s): 04128878 Comment: -has history of hypertension -well controlled'-on soft side -we will continue to monitor (7) UTI (urinary tract infection) Current Visit: Yes Status: Acute Comment: -asymptomatic -urinalaysis shows blood with leucocyte esterase with nitrates but no bacteria -urine culture positive for E. coli -stopped abx as she is asymptomatic and received 3 doses of iv abx (8) Diabetes Current Visit: No Status: Acute Code(s): E11.9 - TYPE 2 DIABETES MELLITUS WITHOUT COMPLICATIONS SNOMED Code(s): 94321156 Comment: -has prediabetes hba1c is 6.0 (9) Lung nodule Current Visit: No Status: Acute Code(s): R91.1 - SOLITARY PULMONARY NODULE SNOMED Code(s): 119963389 Comment: -unchanged from previous scan in september -also has pleural effusion; negative for malignancy in september -follow up with repeat CT in 6 month and consult with pulmonology as an outpatient (10) DVT prophylaxis Current Visit: No Status: Acute Code(s): LMH7062 - SNOMED Code(s): 588179485 Comment: on eliquis Status and Disposition: Inpatient Attending: Robinson Lynch Attestation Documenting Resident: Jimena Peralta Supervising Physician: Robinson Lynch Attending/Supervising Physician Comment: Agree with note as outlined here in Dr. Peralta's note unless indicated here. Hypoxic respiratory failure - in setting of decompensated diastolic heart failure. Also contributing are atalectasis, pleural effusion, underlying lung dysfunction. She was only using oxygen at night prior to hospital stay but I am not convinced that she did not have any requirement. I am equally hesitant to perform thoracentesis prior to any earnest attempt at diuresis. Diuresis was delayed on admission after low BP and bradycardia this stay suspected in setting of medications. - CXR findings concerning for atalectesis vs consolidation are noted. Received CTX x 3 days for urine but we doubt PNA given lack of fever, change in WBC since presentation. Will monitor for need of abx. Attestation: This service has been performed in part by a resident under the direction of a teaching physician.I, Robinson Lynch, performed the service, or was physically present during the critical, or locke portions of the service, furnished by the resident. I participated in the management of the patient.
[2019-02-27] MEDS: SPIRIVA Respimat* (tiotropium) 2.5 mcg/inh Inhaler INH SCH (09:11)
[2019-02-27] MEDS: Nicotine PATCH 21 MG/24 HR* PATCH TRANSDERM SCH (10:05)
[2019-02-27] MEDS: Nystatin TOP POWDER* 15 GM BTL TOPICAL SCH ×3 (10:05→20:47)
[2019-02-27] MEDS: Ferrous Sulfate TAB* 325 MG PO SCH (10:06)
[2019-02-27] MEDS: Apixaban* 5 MG TAB PO SCH ×2 (10:06→20:48)
[2019-02-27] MEDS: Pantoprazole TAB * 40 MG TAB PO SCH (10:07)
[2019-02-27] MEDS: Citalopram TAB* 40 MG PO SCH (10:07)
[2019-02-27] MEDS: UREA TOPICAL SCH (10:08)
[2019-02-27] MEDS: [UNRECOGNIZED DRUG - OTHER] TOPICAL SCH (10:08)
[2019-02-27] MEDS: Metoprolol Tartrate TAB* 25 MG PO SCH ×2 (10:31→20:48)
[2019-02-27] MEDS: Cyanocobalamin TAB* 500 MCG PO SCH (11:08)
[2019-02-27] MEDS: Calamine LOTION* 120 ML TOPICAL SCH (20:47)
[2019-02-27] MEDS: Nicotine Patch Removal NOTE FOLLOW UP SCH (20:48)
[2019-02-28] MEDS: Furosemide TAB* 40 MG PO SCH (06:06)
[2019-02-28] MEDS: SPIRIVA Respimat* (tiotropium) 2.5 mcg/inh Inhaler INH SCH (07:01)
[2019-02-28] MEDS: Cyanocobalamin TAB* 500 MCG PO SCH (10:22)
[2019-02-28] MEDS: Metoprolol Tartrate TAB* 25 MG PO SCH ×2 (10:23→21:17)
[2019-02-28] MEDS: Citalopram TAB* 40 MG PO SCH (10:23)
[2019-02-28] MEDS: Pantoprazole TAB * 40 MG TAB PO SCH (10:23)
[2019-02-28] MEDS: Ferrous Sulfate TAB* 325 MG PO SCH (10:24)
[2019-02-28] MEDS: Calamine LOTION* 120 ML TOPICAL SCH ×4 (10:24→21:26)
[2019-02-28] MEDS: Nicotine PATCH 21 MG/24 HR* PATCH TRANSDERM SCH (10:25)
[2019-02-28] MEDS: Apixaban* 5 MG TAB PO SCH ×2 (10:25→21:18)
[2019-02-28] MEDS: traMADol TAB* 50 MG PO PRN ×2 (10:33→21:18)
[2019-02-28] MEDS: [UNRECOGNIZED DRUG - OTHER] TOPICAL SCH (10:35)
[2019-02-28] MEDS: UREA TOPICAL SCH (10:35)
[2019-02-28] MEDS: Nystatin TOP POWDER* 15 GM BTL TOPICAL SCH ×3 (13:08→21:27)
[2019-02-28] MEDS ORDERED: Furosemide IV* 10 MG/ML 2 ML VIAL (20 MG) IV SLOW PU ONE (15:23)
--- NOTE | 2019-02-28 16:16 | PN ---
Subjective Date of Service: 02/28/19 Interval History: No complaints, slept OK OOB to bathroom, denies SOB but on 4L O2 NC Minimal cough, no CP, palpitations Objective Active Medications: Acetaminophen (Tylenol Tab*) 650 mg PO Q4H PRN PRN Reason: MILD PAIN or TEMP > 100.4 Last Admin: 02/26/19 20:45 Dose: 650 mg Al Hydrox/Mg Hydrox/Simethicone (Maalox Plus*) 30 ml PO Q6H PRN PRN Reason: INDIGESTION Albuterol (Ventolin Hfa Inhaler*) 2 puff INH Q4H PRN PRN Reason: SHORTNESS OF BREATH Apixaban (Eliquis*) 5 mg PO BID [facility] Last Admin: 02/28/19 10:25 Dose: 5 mg Calamine (Calamine Lotion*) 1 applic TOPICAL QID [facility] Last Admin: 02/28/19 15:29 Dose: Not Given Citalopram Hydrobromide (Celexa Tab*) 40 mg PO DAILY [facility] Last Admin: 02/28/19 10:23 Dose: 40 mg Cyanocobalamin (Vitamin B12 Tab*) 1,000 mcg PO DAILY [facility] Last Admin: 02/28/19 10:22 Dose: 1,000 mcg Ferrous Sulfate (Ferrous Sulfate Tab*) 325 mg PO DAILY [facility] Last Admin: 02/28/19 10:24 Dose: 325 mg Furosemide (Lasix Tab*) 40 mg PO 0600 [facility] Last Admin: 02/28/19 06:06 Dose: 40 mg Metoprolol Tartrate (Lopressor Tab*) 12.5 mg PO Q12HR [facility] Last Admin: 02/28/19 10:23 Dose: 12.5 mg Nicotine (Nicotine Patch 21 Mg/24 Hr*) 1 patch TRANSDERM DAILY@0800 [facility] Last Admin: 02/28/19 10:25 Dose: 1 patch Nft: Urea-C40 Cream (40% 1 Applic) 1 applic TOPICAL DAILY [facility] Last Admin: 02/28/19 10:35 Dose: Not Given Nystatin (Nystatin Top Powder*) 1 applic TOPICAL TID [facility] Last Admin: 02/28/19 15:29 Dose: 1 applic Ondansetron HCl (Zofran Inj*) 4 mg IV Q4H PRN PRN Reason: NAUSEA/VOMITING Pantoprazole Sodium (Protonix Tab*) 40 mg PO DAILY [facility] Last Admin: 02/28/19 10:23 Dose: 40 mg Pharmacy Profile Note (Nicotine Patch Removal Note*) 1 note FOLLOW UP 2100 [facility] Last Admin: 02/27/19 20:48 Dose: 1 note Senna (Senokot 8.6 Mg Tab*) 1 tab PO BID PRN PRN Reason: CONSTIPATION Last Admin: 02/28/19 10:33 Dose: 1 tab Tiotropium [place] (Spiriva Respimat 2.5 Mcg) 2 puff INH DAILY [facility] Last Admin: 02/28/19 07:01 Dose: Not Given Tramadol HCl (Ultram*) 50 mg PO Q6HR PRN PRN Reason: PAIN Last Admin: 02/28/19 10:33 Dose: 50 mg Vital Signs - 8 hr 02/28/19 02/28/19 02/28/19 10:33 11:15 13:08 Temperature 98.1 F Pulse Rate 67 Respiratory 18 20 22 Rate Blood Pressure 137/76 (mmHg) O2 Sat by Pulse 96 Oximetry Oxygen Devices in Use Now: None, Nasal Cannula - 4L Appearance: Sitting up, NAD Eyes: No Scleral Icterus, PERRLA Ears/Nose/Mouth/Throat: NL Teeth, Lips, Gums, Clear Oropharnyx Neck: NL Appearance and Movements; NL JVP, Trachea Midline Respiratory: Symmetrical Chest Expansion and Respiratory Effort, - - decreased in right base, dull to percussion right base, lung estrada clear Cardiovascular: - - IRIR Abdominal: NL Sounds; No Tenderness; No Distention, No Hepatosplenomegaly Extremities: - - LE tense but non pitting Skin: - - facial brusing Neurological: Alert and Oriented x 3, - - CN 2-12 intact Result Diagrams: 02/27/19 04:23 02/27/19 04:23 Additional Lab and Data: Lab Results 02/23/19 02/23/19 02/23/19 Range/Units 12:52 12:52 13:35 WBC 8.2 (3.5-10.8) 10^3/uL RBC 4.44 (3.70-4.87) 10^6 /uL Hgb 13.8 (12.0-16.0) g/dL Hct 42 (35-47) % MCV 93 (80-97) fL MCH 31 (27-31) pg MCHC 33 (31-36) g/dL RDW 15 (10-15) % Plt Count 159 (150-450) 10^3/uL MPV 7.5 (7.4-10.4) fL Neut % (Auto) 87.5 % Lymph % (Auto) 4.5 % [place] % (Auto) 5.4 % Eos % (Auto) 1.4 % Baso % (Auto) 1.2 % Absolute Neuts (auto) 7.1 (1.5-7.7) 10^3/ul Absolute Lymphs (auto) 0.4 L (1.0-4.8) 10^3/ul Absolute Monos (auto) 0.4 (0-0.8) 10^3/ul Absolute Eos (auto) 0.1 (0-0.6) 10^3/ul Absolute Basos (auto) 0.1 (0-0.2) 10^3/ul Absolute Nucleated RBC 0.0 10^3/ul Nucleated RBC % 0.1 INR (Anticoag Therapy) (0.82-1.09) Sodium 134 L (135-145) mmol/L Potassium 4.4 (3.5-5.0) mmol/L Chloride 101 (101-111) mmol/L Carbon Dioxide 24 (22-32) mmol/L Anion Gap 9 (2-11) mmol/L BUN 26 H (6-24) mg/dL Creatinine 1.42 H (0.51-0.95) mg/dL Est GFR ( Amer) 43.9 (>60) Est GFR (Non-Af Amer) 36.3 (>60) BUN/Creatinine Ratio 18.3 (8-20) Glucose 131 H (70-100) mg/dL Lactic Acid 1.9 (0.5-2.0) mmol/L Calcium 9.2 (8.6-10.3) mg/dL Magnesium 0.9 L* (1.9-2.7) mg/dL Total Bilirubin 1.30 H (0.2-1.0) mg/dL AST 8 L (13-39) U/L ALT 4 L (7-52) U/L Alkaline Phosphatase 73 (34-104) U/L Troponin I 0.03 (<0.04) ng/mL Total Protein 6.7 (6.4-8.9) g/dL Albumin 3.7 (3.2-5.2) g/dL Globulin 3.0 (2-4) g/dL Albumin/Globulin Ratio 1.2 (1-3) 02/23/19 Range/Units 13:35 WBC (3.5-10.8) 10^3/uL RBC (3.70-4.87) 10^6 /uL Hgb (12.0-16.0) g/dL Hct (35-47) % MCV (80-97) fL MCH (27-31) pg MCHC (31-36) g/dL RDW (10-15) % Plt Count (150-450) 10^3/uL MPV (7.4-10.4) fL Neut % (Auto) % Lymph % (Auto) % [place] % (Auto) % Eos % (Auto) % Baso % (Auto) % Absolute Neuts (auto) (1.5-7.7) 10^3/ul Absolute Lymphs (auto) (1.0-4.8) 10^3/ul Absolute Monos (auto) (0-0.8) 10^3/ul Absolute Eos (auto) (0-0.6) 10^3/ul Absolute Basos (auto) (0-0.2) 10^3/ul Absolute Nucleated RBC 10^3/ul Nucleated RBC % INR (Anticoag Therapy) 1.71 H (0.82-1.09) Sodium (135-145) mmol/L Potassium (3.5-5.0) mmol/L Chloride (101-111) mmol/L Carbon Dioxide (22-32) mmol/L Anion Gap (2-11) mmol/L BUN (6-24) mg/dL Creatinine (0.51-0.95) mg/dL Est GFR ( Amer) (>60) Est GFR (Non-Af Amer) (>60) BUN/Creatinine Ratio (8-20) Glucose (70-100) mg/dL Lactic Acid (0.5-2.0) mmol/L Calcium (8.6-10.3) mg/dL Magnesium (1.9-2.7) mg/dL Total Bilirubin (0.2-1.0) mg/dL AST (13-39) U/L ALT (7-52) U/L Alkaline Phosphatase (34-104) U/L Troponin I (<0.04) ng/mL Total Protein (6.4-8.9) g/dL Albumin (3.2-5.2) g/dL Globulin (2-4) g/dL Albumin/Globulin Ratio (1-3) Microbiology and Other Data: Microbiology 02/24/19 15:59 Aerobic Blood Culture - Preliminary Blood Venous No Growth Day 4 Anaerobic Blood Culture - Preliminary No Growth Day 4 02/24/19 15:45 Aerobic Blood Culture - Preliminary Blood Venous No Growth Day 4 Anaerobic Blood Culture - Preliminary No Growth Day 4 02/23/19 14:35 Urine Culture - Final Urine Escherichia Coli 02/23/19 22:45 Nasal Screen MRSA (PCR) - Final Nasal Mrsa Not Detected Assess/Plan/Problems-Billing Assessment: 73 y/o F with h/o COPD (2L of o2 at night), HRpEF, Chronic Afib (on atenolol, dilti and eliquis), HTN,DM and tobacco use presented with acute bilateral knee pain s/p fall found to have AF with RVR, hypoxic respiratory failure with stay c/b hypotension and bradycardia - Patient Problems (1) Hypoxia Comment: -Reports 2L O2 at night prior to admission but I suspect she had additional oxygen needs during the day that were unknown prior to admission -Suspect acute on chronic HF but Pleural effusion and atelectasis on top of known COPD likely contributing to hypoxia; less likely PE as patient is already in therapeutic anticoagulation -She has received minimal diuresis after she developed hypotension/bradycardia - additional lasix 20mg IV today in addition to lasix 40 PO -we will treat her HF first and if does not improve may need thoracentesis ( eliquis use is noted) (2) Knee pain Comment: -developed s/p fall -no fracture on xray -tylenol prn (3) Atrial fibrillation Comment: -RVR on admission now rate controlled -atenolol and diltiazem stopped after pt became sherrie with frequent pauses -tolerating metoprolol well; we will titrate according to HR -on eliquis (4) Pleural effusion Comment: -has right sided pleural effusion with atlectasis -thoracentesis was done in september and was negative for any malignany -In September was transudative secondary to heart failure -we will treat HF and see if it improves -if doesnt improve then thoracentesis can be done to relieve hypoxia (5) CHF (congestive heart failure) Comment: -acute on chronic diastolic HF -decompensation in setting of AF with RVR -echo done in 09/2018- EF of 60-65% with severe LA dilatation with moderate to severe calcification of mitral valve and mild dynamic obstruction of LV. -I and O daily -daily weight -on lasix 40 mg; tolerating well (6) HTN (hypertension) Comment: monitor on metoprolol (7) UTI (urinary tract infection) Comment: - received 3 doses of iv abx when hypotensive (8) Diabetes Comment: -has prediabetes hba1c is 6.0 (9) Lung nodule Comment: -unchanged from previous scan in september -also has pleural effusion; negative for malignancy in september -follow up with repeat CT in 6 month and consult with pulmonology as an outpatient (10) DVT prophylaxis Comment: on eliquis Status and Disposition: Inpatient
[2019-02-28] MEDS: Nicotine Patch Removal NOTE FOLLOW UP SCH (21:26)
[2019-03-01] MEDS: Furosemide TAB* 40 MG PO SCH (05:30)
[2019-03-01 06:26] LABS: BUN/Creatinine Ratio 24.6 (8-20); Calcium 9.4 mg/dL (8.6-10.3); EGFR African American 56.5 (>60); EGFR Non-African American 46.7 (>60); Potassium 3.4 mmol/L (3.5-5.0)
[2019-03-01] MEDS ORDERED: Potassium Chlor TAB* 20 MEQ TAB.ER PO ONE (06:35)
--- NOTE | 2019-03-01 06:39 | PN ---
Subjective Date of Service: 03/01/19 Interval History: HD 7 on 03/01 Overnight- hypotensive but stable VS stable Patient was reporting of difficulty in urination. No urgency and burning Denies chest pain, palpitation and lightheadedness Objective Active Medications: Acetaminophen (Tylenol Tab*) 650 mg PO Q4H PRN PRN Reason: MILD PAIN or TEMP > 100.4 Last Admin: 02/26/19 20:45 Dose: 650 mg Al Hydrox/Mg Hydrox/Simethicone (Maalox Plus*) 30 ml PO Q6H PRN PRN Reason: INDIGESTION Albuterol (Ventolin Hfa Inhaler*) 2 puff INH Q4H PRN PRN Reason: SHORTNESS OF BREATH Apixaban (Eliquis*) 5 mg PO BID [facility] Last Admin: 02/28/19 21:18 Dose: 5 mg Calamine (Calamine Lotion*) 1 applic TOPICAL QID [facility] Last Admin: 02/28/19 21:26 Dose: 1 applic Citalopram Hydrobromide (Celexa Tab*) 40 mg PO DAILY [facility] Last Admin: 02/28/19 10:23 Dose: 40 mg Cyanocobalamin (Vitamin B12 Tab*) 1,000 mcg PO DAILY [facility] Last Admin: 02/28/19 10:22 Dose: 1,000 mcg Ferrous Sulfate (Ferrous Sulfate Tab*) 325 mg PO DAILY [facility] Last Admin: 02/28/19 10:24 Dose: 325 mg Furosemide (Lasix Tab*) 40 mg PO 0600 [facility] Last Admin: 03/01/19 05:30 Dose: 40 mg Metoprolol Tartrate (Lopressor Tab*) 12.5 mg PO Q12HR [facility] Last Admin: 02/28/19 21:17 Dose: 12.5 mg Nicotine (Nicotine Patch 21 Mg/24 Hr*) 1 patch TRANSDERM DAILY@0800 [facility] Last Admin: 02/28/19 10:25 Dose: 1 patch Nft: Urea-C40 Cream (40% 1 Applic) 1 applic TOPICAL DAILY [facility] Last Admin: 02/28/19 10:35 Dose: Not Given Nystatin (Nystatin Top Powder*) 1 applic TOPICAL TID [facility] Last Admin: 02/28/19 21:27 Dose: 1 applic Ondansetron HCl (Zofran Inj*) 4 mg IV Q4H PRN PRN Reason: NAUSEA/VOMITING Pantoprazole Sodium (Protonix Tab*) 40 mg PO DAILY [facility] Last Admin: 02/28/19 10:23 Dose: 40 mg Pharmacy Profile Note (Nicotine Patch Removal Note*) 1 note FOLLOW UP 2100 [facility] Last Admin: 02/28/19 21:26 Dose: 1 note Senna (Senokot 8.6 Mg Tab*) 1 tab PO BID PRN PRN Reason: CONSTIPATION Last Admin: 02/28/19 10:33 Dose: 1 tab Tiotropium [place] (Spiriva Respimat 2.5 Mcg) 2 puff INH DAILY [facility] Last Admin: 02/28/19 07:01 Dose: Not Given Tramadol HCl (Ultram*) 50 mg PO Q6HR PRN PRN Reason: PAIN Last Admin: 02/28/19 21:18 Dose: 50 mg Vital Signs - 8 hr 02/28/19 03/01/19 03/01/19 23:15 03:14 04:52 Temperature 97.6 F 97.6 F Pulse Rate 90 71 Respiratory 18 19 14 Rate Blood Pressure 87/44 94/61 (mmHg) O2 Sat by Pulse 96 93 Oximetry Oxygen Devices in Use Now: Nasal Cannula Exam: Patient is lying on a bed with no acute distress HEENT- Normocephalic and atraumatic. Bruise resolved Lungs- clear with no added sounds. decreased breath sound on right Heart: Irregular rhythm. S1/S2 heard; difficult to appreciate murmur Abdomen: Soft, nondistended and nontender. Normal BS heard Extremties: Multiple bruise on upper extremities. Bilateral pedal edema Neuro: Alert, oriented and coperative Result Diagrams: 02/27/19 04:23 03/01/19 05:33 Additional Lab and Data: Lab Results 02/23/19 02/23/19 02/23/19 Range/Units 12:52 12:52 13:35 WBC 8.2 (3.5-10.8) 10^3/uL RBC 4.44 (3.70-4.87) 10^6 /uL Hgb 13.8 (12.0-16.0) g/dL Hct 42 (35-47) % MCV 93 (80-97) fL MCH 31 (27-31) pg MCHC 33 (31-36) g/dL RDW 15 (10-15) % Plt Count 159 (150-450) 10^3/uL MPV 7.5 (7.4-10.4) fL Neut % (Auto) 87.5 % Lymph % (Auto) 4.5 % [place] % (Auto) 5.4 % Eos % (Auto) 1.4 % Baso % (Auto) 1.2 % Absolute Neuts (auto) 7.1 (1.5-7.7) 10^3/ul Absolute Lymphs (auto) 0.4 L (1.0-4.8) 10^3/ul Absolute Monos (auto) 0.4 (0-0.8) 10^3/ul Absolute Eos (auto) 0.1 (0-0.6) 10^3/ul Absolute Basos (auto) 0.1 (0-0.2) 10^3/ul Absolute Nucleated RBC 0.0 10^3/ul Nucleated RBC % 0.1 INR (Anticoag Therapy) (0.82-1.09) Sodium 134 L (135-145) mmol/L Potassium 4.4 (3.5-5.0) mmol/L Chloride 101 (101-111) mmol/L Carbon Dioxide 24 (22-32) mmol/L Anion Gap 9 (2-11) mmol/L BUN 26 H (6-24) mg/dL Creatinine 1.42 H (0.51-0.95) mg/dL Est GFR ( Amer) 43.9 (>60) Est GFR (Non-Af Amer) 36.3 (>60) BUN/Creatinine Ratio 18.3 (8-20) Glucose 131 H (70-100) mg/dL Lactic Acid 1.9 (0.5-2.0) mmol/L Calcium 9.2 (8.6-10.3) mg/dL Magnesium 0.9 L* (1.9-2.7) mg/dL Total Bilirubin 1.30 H (0.2-1.0) mg/dL AST 8 L (13-39) U/L ALT 4 L (7-52) U/L Alkaline Phosphatase 73 (34-104) U/L Troponin I 0.03 (<0.04) ng/mL Total Protein 6.7 (6.4-8.9) g/dL Albumin 3.7 (3.2-5.2) g/dL Globulin 3.0 (2-4) g/dL Albumin/Globulin Ratio 1.2 (1-3) 02/23/19 Range/Units 13:35 WBC (3.5-10.8) 10^3/uL RBC (3.70-4.87) 10^6 /uL Hgb (12.0-16.0) g/dL Hct (35-47) % MCV (80-97) fL MCH (27-31) pg MCHC (31-36) g/dL RDW (10-15) % Plt Count (150-450) 10^3/uL MPV (7.4-10.4) fL Neut % (Auto) % Lymph % (Auto) % [place] % (Auto) % Eos % (Auto) % Baso % (Auto) % Absolute Neuts (auto) (1.5-7.7) 10^3/ul Absolute Lymphs (auto) (1.0-4.8) 10^3/ul Absolute Monos (auto) (0-0.8) 10^3/ul Absolute Eos (auto) (0-0.6) 10^3/ul Absolute Basos (auto) (0-0.2) 10^3/ul Absolute Nucleated RBC 10^3/ul Nucleated RBC % INR (Anticoag Therapy) 1.71 H (0.82-1.09) Sodium (135-145) mmol/L Potassium (3.5-5.0) mmol/L Chloride (101-111) mmol/L Carbon Dioxide (22-32) mmol/L Anion Gap (2-11) mmol/L BUN (6-24) mg/dL Creatinine (0.51-0.95) mg/dL Est GFR ( Amer) (>60) Est GFR (Non-Af Amer) (>60) BUN/Creatinine Ratio (8-20) Glucose (70-100) mg/dL Lactic Acid (0.5-2.0) mmol/L Calcium (8.6-10.3) mg/dL Magnesium (1.9-2.7) mg/dL Total Bilirubin (0.2-1.0) mg/dL AST (13-39) U/L ALT (7-52) U/L Alkaline Phosphatase (34-104) U/L Troponin I (<0.04) ng/mL Total Protein (6.4-8.9) g/dL Albumin (3.2-5.2) g/dL Globulin (2-4) g/dL Albumin/Globulin Ratio (1-3) Microbiology and Other Data: Microbiology 02/24/19 15:59 Aerobic Blood Culture - Preliminary Blood Venous No Growth Day 4 Anaerobic Blood Culture - Preliminary No Growth Day 4 02/24/19 15:45 Aerobic Blood Culture - Preliminary Blood Venous No Growth Day 4 Anaerobic Blood Culture - Preliminary No Growth Day 4 02/23/19 14:35 Urine Culture - Final Urine Escherichia Coli 02/23/19 22:45 Nasal Screen MRSA (PCR) - Final Nasal Mrsa Not Detected Assess/Plan/Problems-Billing Assessment: 73 y/o F with h/o COPD (2L of o2 at night), HFpEF, Chronic Afib (on atenolol, dilti and eliquis), HTN,DM and tobacco use presented with acute bilateral knee pain s/p fall found to have AF with RVR, hypoxic respiratory failure, Right Pleural Effusion with stay c/b hypotension and bradycardia - Patient Problems (1) Hypoxia Current Visit: Yes Status: Acute Code(s): R09.02 - HYPOXEMIA SNOMED Code(s ): 294547442 Comment: -Suspect acute on chronic HF but Pleural effusion and atelectasis on top of known COPD likely contributing to hypoxia; less likely PE as patient is already in therapeutic anticoagulation -She has received minimal diuresis after she developed hypotension/bradycardia- on PO lasix 40 mg daily; -we will treat her HF first and if does not improve may need thoracentesis ( eliquis use is noted) (2) Urinary retention Current Visit: No Status: Acute Code(s): R33.9 - RETENTION OF URINE, UNSPECIFIED SNOMED Code(s): 385545466 Comment: -difficulty in urination; no urgency or frequency -no incontinence -bladder scan-900 cc; urinated 300 cc -urinalysis pending -straight catheter -if continues to retain may donovan jimenez cath (3) Knee pain Current Visit: Yes Status: Acute Code(s): M25.569 - PAIN IN UNSPECIFIED KNEE SNOMED Code(s): 18226333 Comment: -developed s/p fall -no fracture on xray -tylenol prn (4) Atrial fibrillation Current Visit: Yes Status: Acute Code(s): I48.91 - UNSPECIFIED ATRIAL FIBRILLATION SNOMED Code(s): 36670451 Comment: -RVR on admission now rate controlled -atenolol and diltiazem stopped after pt became sherrie with frequent pauses -tolerating metoprolol well; we will titrate according to HR -on eliquis (5) Pleural effusion Current Visit: Yes Status: Acute Code(s): J90 - PLEURAL EFFUSION, NOT ELSEWHERE CLASSIFIED SNOMED Code(s): 46266840 Comment: -has right sided pleural effusion with atlectasis -thoracentesis was done in september and was negative for any malignany -In September was transudative secondary to heart failure -we will treat HF and see if it improves -if doesnt improve then thoracentesis can be done to relieve hypoxia and pulm consultation in future (6) CHF (congestive heart failure) Current Visit: Yes Status: Acute Code(s): I50.9 - HEART FAILURE, UNSPECIFIED SNOMED Code(s): 92743846 Comment: -acute on chronic diastolic HF -decompensation in setting of AF with RVR -echo done in 09/2018- EF of 60-65% with severe LA dilatation with moderate to severe calcification of mitral valve and mild dynamic obstruction of LV. -I and O daily -daily weight -on lasix 40 mg; tolerating well (7) HTN (hypertension) Current Visit: Yes Status: Acute Code(s): I10 - ESSENTIAL (PRIMARY) HYPERTENSION SNOMED Code(s): 87166973 Comment: monitor on metoprolol (8) UTI (urinary tract infection) Current Visit: Yes Status: Acute Comment: - received 3 doses of iv abx when hypotensive (9) Lung nodule Current Visit: Yes Status: Acute Code(s): R91.1 - SOLITARY PULMONARY NODULE SNOMED Code(s): 100431606 Comment: -unchanged from previous scan in september -also has pleural effusion; negative for malignancy in september -follow up with repeat CT in 6 month and consult with pulmonology as an outpatient (10) DVT prophylaxis Current Visit: Yes Status: Acute Code(s): EZI7836 - SNOMED Code(s): 185294042 Comment: on eliquis (11) Full code status Current Visit: Yes Status: Acute Code(s): Z78.9 - OTHER SPECIFIED HEALTH STATUS SNOMED Code(s): 758182496 Status and Disposition: Inpatient needs MONIKA on discharge Attending: Juanis Polanco Attestation Documenting Resident: Jimena Peralta Supervising Physician: Juanis Polanco Attending/Supervising Physician Comment: Attending Assessment and Plan. I have read with and agree the resident's note 73F PMH COPD on home 2L nocturnal O2, ongoing tob use, HFpEF (calcified mitral annulus mild-mod MS), Afib on AC, HTN, CVA and aneurysm s/p clipping without residual deficits who presented s/p mechanical fall found to have hypoxic respiratory failure 2/2 CHF exacerbation, recurrent R pleural effusion, initial hospital course c/b iatrogenic bradycardia. Today with urinary retention. Plan is as follows: #Hypoxic Resp Failure: 2/2 to CHF exacerbation and pleural effusion -Cont supportive O2 #R Pleural Effusion: Transudative in the past, likely from CHF, if hypoxia not improving, consult to pulm, does have incidental round atlectasis on CT scan unchanged from September #HFpEF: Echo in September with mild-mod MS, severe elevated RVSP #Afib: Controlled w low dose metop, continue AC #Urinary retention: possibly related to constipation, straight cath PRN, start bowel regimen, question of UTI earlier in hospital, already treated #Hx of CVA, [employer]TAIN shunt in place, no residual defecits #DVT PPX: Eliquis #Code-Full Dispo: Likely MONIKA, still ongoing gentle diuresis, when hypoxia back to baseline medically stable Attestation: This service has been performed in part by a resident under the direction of a teaching physician.I, Juanis Polanco, performed the service, or was physically present during the critical, or locke portions of the service, furnished by the resident. I participated in the management of the patient.
[2019-03-01 06:54] LABS: Magnesium 1.1 mg/dL (1.9-2.7)
[2019-03-01] MEDS: Cyanocobalamin TAB* 500 MCG PO SCH (07:35)
[2019-03-01] MEDS: Ferrous Sulfate TAB* 325 MG PO SCH (07:35)
[2019-03-01] MEDS: Citalopram TAB* 40 MG PO SCH (07:36)
[2019-03-01] MEDS: Apixaban* 5 MG TAB PO SCH ×2 (07:36→22:33)
[2019-03-01] MEDS: Pantoprazole TAB * 40 MG TAB PO SCH (07:36)
[2019-03-01] MEDS: Nicotine PATCH 21 MG/24 HR* PATCH TRANSDERM SCH (07:37)
[2019-03-01] MEDS: UREA TOPICAL SCH (07:38)
[2019-03-01] MEDS: [UNRECOGNIZED DRUG - OTHER] TOPICAL SCH (07:38)
[2019-03-01] MEDS: Calamine LOTION* 120 ML TOPICAL SCH ×4 (07:38→22:31)
[2019-03-01] MEDS: Nystatin TOP POWDER* 15 GM BTL TOPICAL SCH ×3 (07:39→22:31)
[2019-03-01] MEDS: SPIRIVA Respimat* (tiotropium) 2.5 mcg/inh Inhaler INH SCH (08:14)
[2019-03-01] MEDS: Metoprolol Tartrate TAB* 25 MG PO SCH ×2 (09:57→22:33)
[2019-03-01] MEDS ORDERED: Magnesium Sulf 4 GM/100 ML IV* 4,000 MG/100 ML BAG IVPB ONE (10:39)
[2019-03-01] MEDS: Acetaminophen TAB* 325 MG PO PRN (11:29)
[2019-03-01 12:58] LABS: Urine Appearance Clear; Urine Bacteria Absent (Absent); Urine Bilirubin Negative (Negative); Urine Blood 1+ (Negative); Urine Color Yellow; Urine Glucose Negative (Negative); Urine Ketones Negative (Negative); Urine Nitrite Negative (Negative); Urine Protein Negative (Negative); Urine Red Blood Cell Trace(0-2/hpf) (Absent); Urine Specific Gravity 1.006 (1.010-1.030); Urine Squamous Epithelial Cell Present (Absent); Urine Urobilinogen Negative (Negative); Urine White Blood Cell Trace(0-5/hpf) (Absent)
[2019-03-01] MEDS: traMADol TAB* 50 MG PO PRN (22:32)
[2019-03-01] MEDS: Nicotine Patch Removal NOTE FOLLOW UP SCH (22:33)
[2019-03-01 23:29] LABS: Urine Appearance Clear; Urine Bilirubin Negative (Negative); Urine Blood Negative (Negative); Urine Color Yellow; Urine Glucose Negative (Negative); Urine Ketones Negative (Negative); Urine Nitrite Negative (Negative); Urine Protein Negative (Negative); Urine Specific Gravity 1.009 (1.010-1.030); Urine Urobilinogen Negative (Negative)
[2019-03-02] MEDS: Acetaminophen TAB* 325 MG PO PRN ×4 (01:06→22:36)
[2019-03-02] MEDS: Furosemide TAB* 40 MG PO SCH (05:03)
[2019-03-02 05:23] LABS: BUN/Creatinine Ratio 24.6 (8-20); Calcium 9.3 mg/dL (8.6-10.3); EGFR African American 54.3 (>60); EGFR Non-African American 44.9 (>60); Magnesium 1.7 mg/dL (1.9-2.7); Potassium 3.6 mmol/L (3.5-5.0)
--- NOTE | 2019-03-02 06:59 | PN ---
Subjective Date of Service: 03/02/19 Interval History: HD 8 on 03/02 73 y/o F with h/o COPD (2L of o2 at night), HFpEF, Chronic Afib (on atenolol, dilti and eliquis), HTN,DM and tobacco use presented with acute bilateral knee pain s/p fall found to have AF with RVR, hypoxic respiratory failure, Right Pleural Effusion with stay c/b hypotension and bradycardia Overnight- hypotensive but stable VS stable Denies chest pain, difficulty in breathing and dizziness using 4 L of oxygen Objective Active Medications: Acetaminophen (Tylenol Tab*) 650 mg PO Q4H PRN PRN Reason: MILD PAIN or TEMP > 100.4 Last Admin: 03/02/19 01:06 Dose: 650 mg Al Hydrox/Mg Hydrox/Simethicone (Maalox Plus*) 30 ml PO Q6H PRN PRN Reason: INDIGESTION Albuterol (Ventolin Hfa Inhaler*) 2 puff INH Q4H PRN PRN Reason: SHORTNESS OF BREATH Apixaban (Eliquis*) 5 mg PO BID [facility] Last Admin: 03/01/19 22:33 Dose: 5 mg Calamine (Calamine Lotion*) 1 applic TOPICAL QID [facility] Last Admin: 03/01/19 22:31 Dose: 1 applic Citalopram Hydrobromide (Celexa Tab*) 40 mg PO DAILY [facility] Last Admin: 03/01/19 07:36 Dose: 40 mg Cyanocobalamin (Vitamin B12 Tab*) 1,000 mcg PO DAILY [facility] Last Admin: 03/01/19 07:35 Dose: 1,000 mcg Ferrous Sulfate (Ferrous Sulfate Tab*) 325 mg PO DAILY [facility] Last Admin: 03/01/19 07:35 Dose: 325 mg Furosemide (Lasix Tab*) 40 mg PO 0600 [facility] Last Admin: 03/02/19 05:03 Dose: 40 mg Magnesium Sulfate (Magnesium Sulfate 2 Gm Iv*) 2 gm in 50 mls @ 50 mls/hr IVPB ONCE ONE Stop: 03/02/19 07:56 Metoprolol Tartrate (Lopressor Tab*) 12.5 mg PO Q12HR [facility] Last Admin: 03/01/19 22:33 Dose: 12.5 mg Nicotine (Nicotine Patch 21 Mg/24 Hr*) 1 patch TRANSDERM DAILY@0800 [facility] Last Admin: 03/01/19 07:37 Dose: 1 patch Nft: Urea-C40 Cream (40% 1 Applic) 1 applic TOPICAL DAILY [facility] Last Admin: 03/01/19 07:38 Dose: Not Given Nystatin (Nystatin Top Powder*) 1 applic TOPICAL TID [facility] Last Admin: 03/01/19 22:31 Dose: 1 applic Ondansetron HCl (Zofran Inj*) 4 mg IV Q4H PRN PRN Reason: NAUSEA/VOMITING Pantoprazole Sodium (Protonix Tab*) 40 mg PO DAILY [facility] Last Admin: 03/01/19 07:36 Dose: 40 mg Pharmacy Profile Note (Nicotine Patch Removal Note*) 1 note FOLLOW UP 2100 [facility] Last Admin: 03/01/19 22:33 Dose: 1 note Polyethylene Glycol/Electrolytes (Miralax*) 17 gm PO DAILY PRN PRN Reason: CONSTIPATION Senna (Senokot 8.6 Mg Tab*) 1 tab PO BID PRN PRN Reason: CONSTIPATION Last Admin: 02/28/19 10:33 Dose: 1 tab Tiotropium [place] (Spiriva Respimat 2.5 Mcg) 2 puff INH DAILY [facility] Last Admin: 03/01/19 08:14 Dose: Not Given Tramadol HCl (Ultram*) 50 mg PO Q6HR PRN PRN Reason: PAIN Last Admin: 03/01/19 22:32 Dose: 50 mg Vital Signs - 8 hr 03/01/19 03/02/19 03/02/19 23:15 01:05 03:15 Temperature 97.8 F 98.6 F Pulse Rate 67 83 Respiratory 18 18 19 Rate Blood Pressure 108/65 110/49 (mmHg) O2 Sat by Pulse 92 96 Oximetry Oxygen Devices in Use Now: Nasal Cannula Exam: Patient is lying on a bed with no acute distress HEENT- Normocephalic and atraumatic. Bruise resolved Lungs- clear with no added sounds. decreased breath sound on right Heart: Irregular rhythm. S1/S2 heard; difficult to appreciate murmur Abdomen: Soft, nondistended and nontender. Normal BS heard Extremties: Multiple bruise on upper extremities. Bilateral pedal edema Neuro: Alert, oriented and coperative Result Diagrams: 02/27/19 04:23 03/02/19 04:34 Additional Lab and Data: Lab Results 02/23/19 02/23/1902/23/19 Range/Units 12:52 12:52 13:35 WBC 8.2 (3.5-10.8) 10^3/uL RBC 4.44 (3.70-4.87) 10^6 /uL Hgb 13.8 (12.0-16.0) g/dL Hct 42 (35-47) % MCV 93 (80-97) fL MCH 31 (27-31) pg MCHC 33 (31-36) g/dL RDW 15 (10-15) % Plt Count 159 (150-450) 10^3/uL MPV 7.5 (7.4-10.4) fL Neut % (Auto) 87.5 % Lymph % (Auto) 4.5 % [place] % (Auto) 5.4 % Eos % (Auto) 1.4 % Baso % (Auto) 1.2 % Absolute Neuts (auto) 7.1 (1.5-7.7) 10^3/ul Absolute Lymphs (auto) 0.4 L (1.0-4.8) 10^3/ul Absolute Monos (auto) 0.4 (0-0.8) 10^3/ul Absolute Eos (auto) 0.1 (0-0.6) 10^3/ul Absolute Basos (auto) 0.1 (0-0.2) 10^3/ul Absolute Nucleated RBC 0.0 10^3/ul Nucleated RBC % 0.1 INR (Anticoag Therapy) (0.82-1.09) Sodium 134 L (135-145) mmol/L Potassium 4.4 (3.5-5.0) mmol/L Chloride 101 (101-111) mmol/L Carbon Dioxide 24 (22-32) mmol/L Anion Gap 9 (2-11) mmol/L BUN 26 H (6-24) mg/dL Creatinine 1.42 H (0.51-0.95) mg/dL Est GFR ( Amer) 43.9 (>60) Est GFR (Non-Af Amer) 36.3 (>60) BUN/Creatinine Ratio 18.3 (8-20) Glucose 131 H (70-100) mg/dL Lactic Acid 1.9 (0.5-2.0) mmol/L Calcium 9.2 (8.6-10.3) mg/dL Magnesium 0.9 L* (1.9-2.7) mg/dL Total Bilirubin 1.30 H (0.2-1.0) mg/dL AST 8 L (13-39) U/L ALT 4 L (7-52) U/L Alkaline Phosphatase 73 (34-104) U/L Troponin I 0.03 (<0.04) ng/mL Total Protein 6.7 (6.4-8.9) g/dL Albumin 3.7 (3.2-5.2) g/dL Globulin 3.0 (2-4) g/dL Albumin/Globulin Ratio 1.2 (1-3) 02/23/19 Range/Units 13:35 WBC (3.5-10.8) 10^3/uL RBC (3.70-4.87) 10^6 /uL Hgb (12.0-16.0) g/dL Hct (35-47) % MCV (80-97) fL MCH (27-31) pg MCHC (31-36) g/dL RDW (10-15) % Plt Count (150-450) 10^3/uL MPV (7.4-10.4) fL Neut % (Auto) % Lymph % (Auto) % [place] % (Auto) % Eos % (Auto) % Baso % (Auto) % Absolute Neuts (auto) (1.5-7.7) 10^3/ul Absolute Lymphs (auto) (1.0-4.8) 10^3/ul Absolute Monos (auto) (0-0.8) 10^3/ul Absolute Eos (auto) (0-0.6) 10^3/ul Absolute Basos (auto) (0-0.2) 10^3/ul Absolute Nucleated RBC 10^3/ul Nucleated RBC % INR (Anticoag Therapy) 1.71 H (0.82-1.09) Sodium (135-145) mmol/L Potassium (3.5-5.0) mmol/L Chloride (101-111) mmol/L Carbon Dioxide (22-32) mmol/L Anion Gap (2-11) mmol/L BUN (6-24) mg/dL Creatinine (0.51-0.95) mg/dL Est GFR ( Amer) (>60) Est GFR (Non-Af Amer) (>60) BUN/Creatinine Ratio (8-20) Glucose (70-100) mg/dL Lactic Acid (0.5-2.0) mmol/L Calcium (8.6-10.3) mg/dL Magnesium (1.9-2.7) mg/dL Total Bilirubin (0.2-1.0) mg/dL AST (13-39) U/L ALT (7-52) U/L Alkaline Phosphatase (34-104) U/L Troponin I (<0.04) ng/mL Total Protein (6.4-8.9) g/dL Albumin (3.2-5.2) g/dL Globulin (2-4) g/dL Albumin/Globulin Ratio (1-3) Microbiology and Other Data: Microbiology 02/24/19 15:59 Aerobic Blood Culture - Preliminary Blood Venous No Growth Day 4 Anaerobic Blood Culture - Preliminary No Growth Day 4 02/24/19 15:45 Aerobic Blood Culture - Preliminary Blood Venous No Growth Day 4 Anaerobic Blood Culture - Preliminary No Growth Day 4 02/23/19 14:35 Urine Culture - Final Urine Escherichia Coli 02/23/19 22:45 Nasal Screen MRSA (PCR) - Final Nasal Mrsa Not Detected Assess/Plan/Problems-Billing Assessment: 73 y/o F with h/o COPD (2L of o2 at night), HFpEF, Chronic Afib (on atenolol, dilti and eliquis), HTN,DM and tobacco use presented with acute bilateral knee pain s/p fall found to have AF with RVR, hypoxic respiratory failure, Right Pleural Effusion with stay c/b hypotension and bradycardia - Patient Problems (1) Hypoxia Current Visit: Yes Status: Acute Code(s): R09.02 - HYPOXEMIA SNOMED Code(s ): 416112393 Comment: -Suspect acute on chronic HF but Pleural effusion and atelectasis on top of known COPD likely contributing to hypoxia; less likely PE as patient is already in therapeutic anticoagulation -She has received minimal diuresis after she developed hypotension/bradycardia- on PO lasix 40 mg daily; increased to bid -repeat cxr tomorrow -we will treat her HF first and if does not improve may need thoracentesis ( eliquis use is noted) (2) Urinary retention Current Visit: No Status: Acute Code(s): R33.9 - RETENTION OF URINE, UNSPECIFIED SNOMED Code(s): 367463612 Comment: -difficulty in urination; no urgency or frequency -no incontinence -bladder scan-900 cc; urinated 300 cc -urine normal -jimenez catheter in -may improve with mobilization-looks functional -continue PT (3) Knee pain Current Visit: Yes Status: Acute Code(s): M25.569 - PAIN IN UNSPECIFIED KNEE SNOMED Code(s): 31029289 Comment: -developed s/p fall -no fracture on xray -tylenol prn (4) Atrial fibrillation Current Visit: Yes Status: Acute Code(s): I48.91 - UNSPECIFIED ATRIAL FIBRILLATION SNOMED Code(s): 52807881 Comment: -RVR on admission now rate controlled -atenolol and diltiazem stopped after pt became sherrie with frequent pauses -tolerating metoprolol well; we will titrate according to HR -on eliquis (5) Pleural effusion Current Visit: Yes Status: Acute Code(s): J90 - PLEURAL EFFUSION, NOT ELSEWHERE CLASSIFIED SNOMED Code(s): 60330555 Comment: -has right sided pleural effusion with atlectasis -thoracentesis was done in september and was negative for any malignany -In September was transudative secondary to heart failure -we will treat HF and see if it improves -if doesnt improve then thoracentesis can be done to relieve hypoxia and pulm consultation in future -CXR tomorrow; lasix increased to 40 mg BID (6) CHF (congestive heart failure) Current Visit: Yes Status: Acute Code(s): I50.9 - HEART FAILURE, UNSPECIFIED SNOMED Code(s): 96168349 Comment: -acute on chronic diastolic HF -decompensation in setting of AF with RVR -echo done in 09/2018- EF of 60-65% with severe LA dilatation with moderate to severe calcification of mitral valve and mild dynamic obstruction of LV. -I and O daily -daily weight -on lasix 40 mg BID; tolerating well (7) HTN (hypertension) Current Visit: Yes Status: Acute Code(s): I10 - ESSENTIAL (PRIMARY) HYPERTENSION SNOMED Code(s): 95904224 Comment: monitor on metoprolol (8) UTI (urinary tract infection) Current Visit: Yes Status: Acute Comment: - received 3 doses of iv abx when hypotensive (9) Lung nodule Current Visit: Yes Status: Acute Code(s): R91.1 - SOLITARY PULMONARY NODULE SNOMED Code(s): 285998076 Comment: -unchanged from previous scan in september -also has pleural effusion; negative for malignancy in september -follow up with repeat CT in 6 month and consult with pulmonology as an outpatient (10) DVT prophylaxis Current Visit: Yes Status: Acute Code(s): ZYZ2814 - SNOMED Code(s): 274445606 Comment: on eliquis (11) Full code status Current Visit: Yes Status: Acute Code(s): Z78.9 - OTHER SPECIFIED HEALTH STATUS SNOMED Code(s): 931270661 Status and Disposition: Inpatient needs MONIKA on discharge Attending: Juanis Polanco Attestation Documenting Resident: Jimena Peralta Supervising Physician: Juanis Polanco Attending/Supervising Physician Comment: Attending Assessment and Plan. I have read with and agree the resident's note 73F PMH COPD on home 2L nocturnal O2, ongoing tob use, HFpEF (calcified mitral annulus mild-mod MS), Afib on AC, HTN, CVA and aneurysm s/p clipping without residual deficits who presented s/p mechanical fall found to have hypoxic respiratory failure 2/2 CHF exacerbation, recurrent R pleural effusion, initial hospital course c/b iatrogenic bradycardia and urinary retention. Plan is as follows: #Hypoxic Resp Failure: 2/2 to CHF exacerbation and pleural effusion -Cont supportive O2 -Aim for -500cc #R Pleural Effusion: Transudative in the past, likely from CHF, if hypoxia not improving, consult to pulm, does have incidental round atlectasis on CT scan unchanged from September -CXR 03/03 #HFpEF: Echo in September with mild-mod MS, severe elevated RVSP, BID Lasix if she can tolerate #Afib: Controlled w low dose metop, continue AC #Urinary retention: possibly related to constipation, straight cath PRN, start bowel regimen, question of UTI earlier in hospital, already treated, currently with jimenez placed 03/02 #Hx of CVA, 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 I participated in the management of the patient.
[2019-03-02] MEDS ORDERED: Magnesium Sulfate 2 GM IV* 2 GM/50 ML BAG IVPB ONE (07:30)
[2019-03-02] MEDS: SPIRIVA Respimat* (tiotropium) 2.5 mcg/inh Inhaler INH SCH (08:20)
[2019-03-02] MEDS: Pantoprazole TAB * 40 MG TAB PO SCH (08:49)
[2019-03-02] MEDS: Citalopram TAB* 40 MG PO SCH (08:49)
[2019-03-02] MEDS: Cyanocobalamin TAB* 500 MCG PO SCH (08:49)
[2019-03-02] MEDS: Nicotine PATCH 21 MG/24 HR* PATCH TRANSDERM SCH (08:49)
[2019-03-02] MEDS: Apixaban* 5 MG TAB PO SCH ×2 (08:49→21:23)
[2019-03-02] MEDS: Metoprolol Tartrate TAB* 25 MG PO SCH ×2 (08:49→21:23)
[2019-03-02] MEDS: Calamine LOTION* 120 ML TOPICAL SCH (08:50)
[2019-03-02] MEDS: Ferrous Sulfate TAB* 325 MG PO SCH (08:50)
[2019-03-02] MEDS: [UNRECOGNIZED DRUG - OTHER] TOPICAL SCH (08:51)
[2019-03-02] MEDS: UREA TOPICAL SCH (08:51)
[2019-03-02] MEDS: Nystatin TOP POWDER* 15 GM BTL TOPICAL SCH ×3 (09:04→21:23)
[2019-03-02] MEDS ORDERED: Furosemide TAB* 40 MG PO ONE (13:01)
[2019-03-02] MEDS: Nicotine Patch Removal NOTE FOLLOW UP SCH (21:24)
[2019-03-03] MEDS: Furosemide TAB* 40 MG PO SCH ×2 (05:11→12:43)
--- NOTE | 2019-03-03 06:43 | PN ---
Subjective Date of Service: 03/03/19 Interval History: HD 9 on 03/03 73 y/o F with h/o COPD (2L of o2 at night), HFpEF, Chronic Afib (on atenolol, dilti and eliquis), HTN,DM and tobacco use presented with acute bilateral knee pain s/p fall found to have AF with RVR, hypoxic respiratory failure, Right Pleural Effusion with stay c/b hypotension and bradycardia Overnight- No acute overnight events VS stable Feels well. denies any symptom Objective Active Medications: Acetaminophen (Tylenol Tab*) 650 mg PO Q4H PRN PRN Reason: MILD PAIN or TEMP > 100.4 Last Admin: 03/02/19 22:36 Dose: 650 mg Al Hydrox/Mg Hydrox/Simethicone (Maalox Plus*) 30 ml PO Q6H PRN PRN Reason: INDIGESTION Albuterol (Ventolin Hfa Inhaler*) 2 puff INH Q4H PRN PRN Reason: SHORTNESS OF BREATH Apixaban (Eliquis*) 5 mg PO BID [facility] Last Admin: 03/02/19 21:23 Dose: 5 mg Citalopram Hydrobromide (Celexa Tab*) 40 mg PO DAILY [facility] Last Admin: 03/02/19 08:49 Dose: 40 mg Cyanocobalamin (Vitamin B12 Tab*) 1,000 mcg PO DAILY [facility] Last Admin: 03/02/19 08:49 Dose: 1,000 mcg Ferrous Sulfate (Ferrous Sulfate Tab*) 325 mg PO DAILY [facility] Last Admin: 03/02/19 08:50 Dose: 325 mg Furosemide (Lasix Tab*) 40 mg PO 0600,1200 [facility] Last Admin: 03/03/19 05:11 Dose: 40 mg Metoprolol Tartrate (Lopressor Tab*) 12.5 mg PO Q12HR [facility] Last Admin: 03/02/19 21:23 Dose: 12.5 mg Nicotine (Nicotine Patch 21 Mg/24 Hr*) 1 patch TRANSDERM DAILY@0800 [facility] Last Admin: 03/02/19 08:49 Dose: 1 patch Nft: Urea-C40 Cream (40% 1 Applic) 1 applic TOPICAL DAILY [facility] Last Admin: 03/02/19 08:51 Dose: Not Given Nystatin (Nystatin Top Powder*) 1 applic TOPICAL TID [facility] Last Admin: 03/02/19 21:23 Dose: 1 applic Ondansetron HCl (Zofran Inj*) 4 mg IV Q4H PRN PRN Reason: NAUSEA/VOMITING Pantoprazole Sodium (Protonix Tab*) 40 mg PO DAILY [facility] Last Admin: 03/02/19 08:49 Dose: 40 mg Pharmacy Profile Note (Nicotine Patch Removal Note*) 1 note FOLLOW UP 2100 [facility] Last Admin: 03/02/19 21:24 Dose: 1 note Polyethylene Glycol/Electrolytes (Miralax*) 17 gm PO DAILY PRN PRN Reason: CONSTIPATION Senna (Senokot 8.6 Mg Tab*) 1 tab PO BID PRN PRN Reason: CONSTIPATION Last Admin: 02/28/19 10:33 Dose: 1 tab Tiotropium [place] (Spiriva Respimat 2.5 Mcg) 2 puff INH DAILY [facility] Last Admin: 03/02/19 08:20 Dose: 2 puff Vital Signs - 8 hr 03/03/19 03/03/19 00:21 03:43 Temperature 97.9 F 98.1 F Pulse Rate 62 65 Respiratory 16 18 Rate Blood Pressure 104/52 120/66 (mmHg) O2 Sat by Pulse 96 97 Oximetry Oxygen Devices in Use Now: Nasal Cannula Exam: Patient is lying on a bed with no acute distress HEENT- Normocephalic and atraumatic. Bruise resolved Lungs- crackles. decreased breath sound on right Heart: Irregular rhythm. S1/S2 heard; difficult to appreciate murmur Abdomen: Soft, nondistended and nontender. Normal BS heard Extremties: Multiple bruise on upper extremities. Bilateral pedal edema Neuro: Alert, oriented and coperative Result Diagrams: 02/27/19 04:23 03/03/19 08:15 Additional Lab and Data: Lab Results 02/23/19 02/23/19 02/23/19 Range/Units 12:52 12:52 13:35 WBC 8.2 (3.5-10.8) 10^3/uL RBC 4.44 (3.70-4.87) 10^6 /uL Hgb 13.8 (12.0-16.0) g/dL Hct 42 (35-47) % MCV 93 (80-97) fL MCH 31 (27-31) pg MCHC 33 (31-36) g/dL RDW 15 (10-15) % Plt Count 159 (150-450) 10^3/uL MPV 7.5 (7.4-10.4) fL Neut % (Auto) 87.5 % Lymph % (Auto) 4.5 % [place] % (Auto) 5.4 % Eos % (Auto) 1.4 % Baso % (Auto) 1.2 % Absolute Neuts (auto) 7.1 (1.5-7.7) 10^3/ul Absolute Lymphs (auto) 0.4 L (1.0-4.8) 10^3/ul Absolute Monos (auto) 0.4 (0-0.8) 10^3/ul Absolute Eos (auto) 0.1 (0-0.6) 10^3/ul Absolute Basos (auto) 0.1 (0-0.2) 10^3/ul Absolute Nucleated RBC 0.0 10^3/ul Nucleated RBC % 0.1 INR (Anticoag Therapy) (0.82-1.09) Sodium 134 L (135-145) mmol/L Potassium 4.4 (3.5-5.0) mmol/L Chloride 101 (101-111) mmol/L Carbon Dioxide 24 (22-32) mmol/L Anion Gap 9 (2-11) mmol/L BUN 26 H (6-24) mg/dL Creatinine 1.42 H (0.51-0.95) mg/dL Est GFR ( Amer) 43.9 (>60) Est GFR (Non-Af Amer) 36.3 (>60) BUN/Creatinine Ratio 18.3 (8-20) Glucose 131 H (70-100) mg/dL Lactic Acid 1.9 (0.5-2.0) mmol/L Calcium 9.2 (8.6-10.3) mg/dL Magnesium 0.9 L* (1.9-2.7) mg/dL Total Bilirubin 1.30 H (0.2-1.0) mg/dL AST 8 L (13-39) U/L ALT 4 L (7-52) U/L Alkaline Phosphatase 73 (34-104) U/L Troponin I 0.03 (<0.04) ng/mL Total Protein 6.7 (6.4-8.9) g/dL Albumin 3.7 (3.2-5.2) g/dL Globulin 3.0 (2-4) g/dL Albumin/Globulin Ratio 1.2 (1-3) 02/23/19 Range/Units 13:35 WBC (3.5-10.8) 10^3/uL RBC (3.70-4.87) 10^6 /uL Hgb (12.0-16.0) g/dL Hct (35-47) % MCV (80-97) fL MCH (27-31) pg MCHC (31-36) g/dL RDW (10-15) % Plt Count (150-450) 10^3/uL MPV (7.4-10.4) fL Neut % (Auto) % Lymph % (Auto) % [place] % (Auto) % Eos % (Auto) % Baso % (Auto) % Absolute Neuts (auto) (1.5-7.7) 10^3/ul Absolute Lymphs (auto) (1.0-4.8) 10^3/ul Absolute Monos (auto) (0-0.8) 10^3/ul Absolute Eos (auto) (0-0.6) 10^3/ul Absolute Basos (auto) (0-0.2) 10^3/ul Absolute Nucleated RBC 10^3/ul Nucleated RBC % INR (Anticoag Therapy) 1.71 H (0.82-1.09) Sodium (135-145) mmol/L Potassium (3.5-5.0) mmol/L Chloride (101-111) mmol/L Carbon Dioxide (22-32) mmol/L Anion Gap (2-11) mmol/L BUN (6-24) mg/dL Creatinine (0.51-0.95) mg/dL Est GFR ( Amer) (>60) Est GFR (Non-Af Amer) (>60) BUN/Creatinine Ratio (8-20) Glucose (70-100) mg/dL Lactic Acid (0.5-2.0) mmol/L Calcium (8.6-10.3) mg/dL Magnesium (1.9-2.7) mg/dL Total Bilirubin (0.2-1.0) mg/dL AST (13-39) U/L ALT (7-52) U/L Alkaline Phosphatase (34-104) U/L Troponin I (<0.04) ng/mL Total Protein (6.4-8.9) g/dL Albumin (3.2-5.2) g/dL Globulin (2-4) g/dL Albumin/Globulin Ratio (1-3) Microbiology and Other Data: Microbiology 02/24/19 15:59 Aerobic Blood Culture - Preliminary Blood Venous No Growth Day 4 Anaerobic Blood Culture - Preliminary No Growth Day 4 02/24/19 15:45 Aerobic Blood Culture - Preliminary Blood Venous No Growth Day 4 Anaerobic Blood Culture - Preliminary No Growth Day 4 02/23/19 14:35 Urine Culture - Final Urine Escherichia Coli 02/23/19 22:45 Nasal Screen MRSA (PCR) - Final Nasal Mrsa Not Detected Assess/Plan/Problems-Billing Assessment: 73 y/o F with h/o COPD (2L of o2 at night), HFpEF, Chronic Afib (on atenolol, dilti and eliquis), HTN,DM and tobacco use presented with acute bilateral knee pain s/p fall found to have AF with RVR, hypoxic respiratory failure, Right Pleural Effusion with stay c/b hypotension and bradycardia - Patient Problems (1) Hypoxia Current Visit: Yes Status: Acute Code(s): R09.02 - HYPOXEMIA SNOMED Code(s ): 084283061 Comment: -Suspect acute on chronic HF but Pleural effusion and atelectasis on top of known COPD likely contributing to hypoxia; less likely PE as patient is already in therapeutic anticoagulation -She has received minimal diuresis after she developed hypotension/bradycardia- on PO lasix 40 mg daily; increased to bid- now contraction alkalosis -stop lasix -thoracentesis tomorrow -eliquis stopped (2) Urinary retention Current Visit: No Status: Acute Code(s): R33.9 - RETENTION OF URINE, UNSPECIFIED SNOMED Code(s): 726055586 Comment: -difficulty in urination; no urgency or frequency -no incontinence -bladder scan-900 cc; urinated 300 cc -urine normal -jimenez catheter in -may improve with mobilization-looks functional -continue PT (3) Knee pain Current Visit: Yes Status: Acute Code(s): M25.569 - PAIN IN UNSPECIFIED KNEE SNOMED Code(s): 84720236 Comment: -developed s/p fall -no fracture on xray -tylenol prn (4) Atrial fibrillation Current Visit: Yes Status: Acute Code(s): I48.91 - UNSPECIFIED ATRIAL FIBRILLATION SNOMED Code(s): 73440930 Comment: -RVR on admission now rate controlled -atenolol and diltiazem stopped after pt became sherrie with frequent pauses -tolerating metoprolol well; we will titrate according to HR -eliquis on hold- for thora (5) Pleural effusion Current Visit: Yes Status: Acute Code(s): J90 - PLEURAL EFFUSION, NOT ELSEWHERE CLASSIFIED SNOMED Code(s): 56743848 Comment: -has right sided pleural effusion with atlectasis -thoracentesis was done in september and was negative for any malignany -In September was transudative secondary to heart failure -lasix stopped -thora tomorrow (6) CHF (congestive heart failure) Current Visit: Yes Status: Acute Code(s): I50.9 - HEART FAILURE, UNSPECIFIED SNOMED Code(s): 41503470 Comment: -acute on chronic diastolic HF -decompensation in setting of AF with RVR -echo done in 09/2018- EF of 60-65% with severe LA dilatation with moderate to severe calcification of mitral valve and mild dynamic obstruction of LV. -I and O daily -daily weight -lasix stopped (7) HTN (hypertension) Current Visit: Yes Status: Acute Code(s): I10 - ESSENTIAL (PRIMARY) HYPERTENSION SNOMED Code(s): 45407487 Comment: monitor on metoprolol (8) UTI (urinary tract infection) Current Visit: Yes Status: Acute Comment: -culture clear now - received 3 doses of iv abx when hypotensive (9) Lung nodule Current Visit: Yes Status: Acute Code(s): R91.1 - SOLITARY PULMONARY NODULE SNOMED Code(s): 464979297 Comment: -unchanged from previous scan in september -also has pleural effusion; negative for malignancy in september -follow up with repeat CT in 6 month and consult with pulmonology as an outpatient (10) DVT prophylaxis Current Visit: Yes Status: Acute Code(s): XBV6267 - SNOMED Code(s): 524568078 Comment: -eliquis on hold Status and Disposition: Inpatient needs [facility] on [facility] Attending: Juanis Polanco Attestation Documenting Resident: Jimena Peralta Supervising Physician: Juanis Polanco Attestation: This service has been performed in part by a resident under the direction of a teaching physician.I, Juanis Polanco, performed the service, or was physically present during the critical, or locke portions of the service, furnished by the resident. I participated in the management of the patient.
[2019-03-03] MEDS: SPIRIVA Respimat* (tiotropium) 2.5 mcg/inh Inhaler INH SCH (08:26)
[2019-03-03 08:49] LABS: Calcium 9.5 mg/dL (8.6-10.3); EGFR African American 53.3 (>60); Potassium 3.8 mmol/L (3.5-5.0)
[2019-03-03] MEDS: Nicotine PATCH 21 MG/24 HR* PATCH TRANSDERM SCH (09:30)
[2019-03-03] MEDS: Citalopram TAB* 40 MG PO SCH (09:31)
[2019-03-03] MEDS: Metoprolol Tartrate TAB* 25 MG PO SCH ×2 (09:31→20:36)
[2019-03-03] MEDS: Pantoprazole TAB * 40 MG TAB PO SCH (09:31)
[2019-03-03] MEDS: Apixaban* 5 MG TAB PO SCH (09:31)
[2019-03-03] MEDS: Cyanocobalamin TAB* 500 MCG PO SCH (09:31)
[2019-03-03] MEDS: Ferrous Sulfate TAB* 325 MG PO SCH (09:31)
[2019-03-03] MEDS: Nystatin TOP POWDER* 15 GM BTL TOPICAL SCH ×3 (09:32→20:38)
[2019-03-03] MEDS: [UNRECOGNIZED DRUG - OTHER] TOPICAL SCH (11:06)
[2019-03-03] MEDS: UREA TOPICAL SCH (11:06)
[2019-03-03] MEDS: Acetaminophen TAB* 325 MG PO PRN (12:45)
--- NOTE | 2019-03-03 15:07 | CONS ---
PULMONARY CONSULTATION REPORT: DATE OF CONSULT: 03/03/19 CONSULTATION REQUESTED BY: Juanis Polanco MD REASON FOR CONSULT: Pleural effusion and shortness of breath. HISTORY OF PRESENT ILLNESS: The patient is a 73-year-old female with history of hypertension; diabetes; atrial fibrillation, on Eliquis; COPD; ongoing tobacco abuse, known to me from prior inpatient and outpatient evaluation. The patient presents for evaluation of knee pain and leg spasms. The patient also reports worsening shortness of breath from her baseline. She usually is limited in her activity. The patient reports that she has tried to walk this morning and has felt significantly short of breath. The patient denies chest pain, palpitations, abdominal pain, nausea, vomiting, dizziness, headaches. The patient has chronic hypoxemic respiratory failure and is on O2 supplementation. Further evaluation included chest x-ray and CT scan of the chest. I personally reviewed chest x-ray and CT scan of the chest. The patient with evidence of right pleural effusion. CT scan of the chest was personally reviewed by me with the patient today. The patient with evidence of moderate right pleural effusion with some fluid tracing to the fissure. The patient with mild atelectasis of the left middle lobe and left lower lobe. The patient also with prominence of main pulmonary artery. The patient is currently on O2 supplementation at 4 L with saturations around 92%. PAST MEDICAL HISTORY: 1. Hypertension. 2. Diabetes. 3. Depression. 4. Cerebral aneurysm, status post [employer] shunt and clipping. 5. Escamilla's esophagus. 6. AFib, on Eliquis. 7. History of seizures. 8. COPD, on O2. 9. GERD. 10. Chronic tobacco abuse. 11. Diastolic CHF. 12. Pulmonary hypertension. 13. JASMINA, on CPAP and 2 L O2. 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 PAST SURGICAL HISTORY: 1. Hysterectomy. 2. [employer] shunt and clipping of cerebral aneurysm. 3. Appendectomy. 4. Cholecystectomy. 5. Cataract surgery. 6. Lower back surgery. MEDICATIONS: 1. Eliquis. 2. Vitamin B12. 3. Urea. 4. Tramadol. 5. Singulair. 6. Silvadene. 7. Albuterol. 8. Omeprazole. 9. Metolazone. 10. Losartan. 11. Lasix. 12. Ferrous sulfate. 13. Incruse. 14. Celexa. 15. Cholestyramine. 16. Diltiazem. 17. Atenolol. 18. Fosamax. ALLERGIES: Swelling of face, lips, and throat secondary to TOMATO. FAMILY HISTORY: Father at age 88 due to dementia, history of hypertension and diabetes. Mother with history of hypertension and SC, unclear cause of . SOCIAL HISTORY: Current smoker with significant smoking history, smokes half a pack per day still. Denies alcohol abuse or drug abuse. REVIEW OF SYSTEMS: All 14 systems reviewed and as per HPI. PHYSICAL EXAM: Elderly female, looking older than stated age, in no apparent distress. Vital Signs: Temperature 97.7, pulse 88 beats per minute, respiratory rate 20 per minute, O2 sat 92% on 4 L, blood pressure 129/76. HEENT : Pupils equal, reactive to light. Mucous membranes moist. Lungs: Diminished air entry bilaterally, crackles on the right side and diminished breath sounds on the right side. Cardiovascular: S1, S2 present. Abdomen: Soft, nontender, nondistended. Bowel sounds present. Extremities: Normal range of motion. Skin: No rash or bruises. DIAGNOSTIC STUDIES/LAB DATA: WBC count 4.4, hemoglobin 12, hematocrit 36, platelet count 157. ABG showed pH of 7.36, pCO2 of 40, pO2 83, bicarb 22, on OxyMask. Sodium 138, potassium 3.8, chloride 93, bicarb 40, BUN 30, creatinine 1.20. Chest x-ray and CT scan as described above in HPI. IMPRESSION AND RECOMMENDATIONS: 73-year-old female with cardiac history, current smoker with history of chronic obstructive pulmonary disease with worsening shortness of breath, admitted with knee pain, extremity pain, found to have moderate right pleural effusion. The patient with elevated bicarb on BMP. She also has elevated creatinine, which is limiting further diuresis. She would benefit from thoracentesis for symptomatic benefit. Also will help rule out other possible etiologies. Will schedule the patient for thoracentesis with image guidance tomorrow. Procedure was discussed in detail in the patient. Associated risk including risk of pneumothorax was discussed. The patient is agreeable to undergoing the procedure. Further recommendations pending about procedure. The patient currently on bronchodilators. She was started on nicotine supplementation. Continue with Spiriva. Thank you for allowing me to participate in the care of the patient. Will follow up with you. [id number]/[facility] #: [id number] DOREEN
[2019-03-03] MEDS: Nicotine Patch Removal NOTE FOLLOW UP SCH (20:41)
[2019-03-04 05:36] LABS: EGFR African American 54.3 (>60); EGFR Non-African American 44.9 (>60); Potassium 3.2 mmol/L (3.5-5.0)
[2019-03-04] MEDS ORDERED: Potassium Chlor TAB* 20 MEQ TAB.ER PO ONE (06:31)
--- NOTE | 2019-03-04 06:33 | PN ---
Subjective Date of Service: 03/04/19 Interval History: HD 10 on 03/04 73 y/o F with h/o COPD (2L of o2 at night), HFpEF, Chronic Afib (on atenolol, dilti and eliquis), HTN,DM and tobacco use presented with acute bilateral knee pain s/p fall found to have AF with RVR, hypoxic respiratory failure, Right Pleural Effusion with stay c/b hypotension and bradycardia Overnight- No acute overnight events VS stable New labs- K is 3.2 denies any symptoms-CP, SOB last BM 2 days ago Objective Active Medications: Acetaminophen (Tylenol Tab*) 650 mg PO Q4H PRN PRN Reason: MILD PAIN or TEMP > 100.4 Last Admin: 03/03/19 12:45 Dose: 650 mg Al Hydrox/Mg Hydrox/Simethicone (Maalox Plus*) 30 ml PO Q6H PRN PRN Reason: INDIGESTION Albuterol (Ventolin Hfa Inhaler*) 2 puff INH Q4H PRN PRN Reason: SHORTNESS OF BREATH Citalopram Hydrobromide (Celexa Tab*) 40 mg PO DAILY [facility] Last Admin: 03/03/19 09:31 Dose: 40 mg Cyanocobalamin (Vitamin B12 Tab*) 1,000 mcg PO DAILY [facility] Last Admin: 03/03/19 09:31 Dose: 1,000 mcg Ferrous Sulfate (Ferrous Sulfate Tab*) 325 mg PO DAILY [facility] Last Admin: 03/03/19 09:31 Dose: 325 mg Metoprolol Tartrate (Lopressor Tab*) 12.5 mg PO Q12HR [facility] Last Admin: 03/03/19 20:36 Dose: 12.5 mg Nicotine (Nicotine Patch 21 Mg/24 Hr*) 1 patch TRANSDERM DAILY@0800 [facility] Last Admin: 03/03/19 09:30 Dose: 1 patch Nft: Urea-C40 Cream (40% 1 Applic) 1 applic TOPICAL DAILY [facility] Last Admin: 03/03/19 11:06 Dose: Not Given Nystatin (Nystatin Top Powder*) 1 applic TOPICAL TID [facility] Last Admin: 03/03/19 20:38 Dose: 1 applic Ondansetron HCl (Zofran Inj*) 4 mg IV Q4H PRN PRN Reason: NAUSEA/VOMITING Pantoprazole Sodium (Protonix Tab*) 40 mg PO DAILY [facility] Last Admin: 03/03/19 09:31 Dose: 40 mg Pharmacy Profile Note (Nicotine Patch Removal Note*) 1 note FOLLOW UP 2100 [facility] Last Admin: 03/03/19 20:41 Dose: 1 note Polyethylene Glycol/Electrolytes (Miralax*) 17 gm PO DAILY PRN PRN Reason: CONSTIPATION Potassium Chloride (Klor Con Er Tab*) 40 meq PO ONCE ONE Stop: 03/04/19 06:32 Senna (Senokot 8.6 Mg Tab*) 1 tab PO BID PRN PRN Reason: CONSTIPATION Last Admin: 02/28/19 10:33 Dose: 1 tab Tiotropium [place] (Spiriva Respimat 2.5 Mcg) 2 puff INH DAILY [facility] Last Admin: 03/03/19 08:26 Dose: 2 puff Vital Signs - 8 hr 03/04/19 03/04/19 00:17 04:04 Temperature 98.7 F 97.3 F Pulse Rate 77 86 Respiratory 16 18 Rate Blood Pressure 149/86 116/86 (mmHg) O2 Sat by Pulse 95 96 Oximetry Oxygen Devices in Use Now: Nasal Cannula Exam: Patient is lying on a bed with no acute distress HEENT- Normocephalic and atraumatic. Bruise resolved Lungs- crackles. decreased breath sound on right Heart: Irregular rhythm. S1/S2 heard; difficult to appreciate murmur Abdomen: Soft, nondistended and nontender. Normal BS heard Extremties: Multiple bruise on upper extremities. Bilateral pedal edema Neuro: Alert, oriented and coperative Result Diagrams: 02/27/19 04:23 03/04/19 04:33 Additional Lab and Data: Lab Results 02/23/19 02/23/19 02/23/19 Range/Units 12:52 12:52 13:35 WBC 8.2 (3.5-10.8) 10^3/uL RBC 4.44 (3.70-4.87) 10^6 /uL Hgb 13.8 (12.0-16.0) g/dL Hct 42 (35-47) % MCV 93 (80-97) fL MCH 31 (27-31) pg MCHC 33 (31-36) g/dL RDW 15 (10-15) % Plt Count 159 (150-450) 10^3/uL MPV 7.5 (7.4-10.4) fL Neut % (Auto) 87.5 % Lymph % (Auto) 4.5 % [place] % (Auto) 5.4 % Eos % (Auto) 1.4 % Baso % (Auto) 1.2 % Absolute Neuts (auto) 7.1 (1.5-7.7) 10^3/ul Absolute Lymphs (auto) 0.4 L (1.0-4.8) 10^3/ul Absolute Monos (auto) 0.4 (0-0.8) 10^3/ul Absolute Eos (auto) 0.1 (0-0.6) 10^3/ul Absolute Basos (auto) 0.1 (0-0.2) 10^3/ul Absolute Nucleated RBC 0.0 10^3/ul Nucleated RBC % 0.1 INR (Anticoag Therapy) (0.82-1.09) Sodium 134 L (135-145) mmol/L Potassium 4.4 (3.5-5.0) mmol/L Chloride 101 (101-111) mmol/L Carbon Dioxide 24 (22-32) mmol/L Anion Gap 9 (2-11) mmol/L BUN 26 H (6-24) mg/dL Creatinine 1.42 H (0.51-0.95) mg/dL Est GFR ( Amer) 43.9 (>60) Est GFR (Non-Af Amer) 36.3 (>60) BUN/Creatinine Ratio 18.3 (8-20) Glucose 131 H (70-100) mg/dL Lactic Acid 1.9 (0.5-2.0) mmol/L Calcium 9.2 (8.6-10.3) mg/dL Magnesium 0.9 L* (1.9-2.7) mg/dL Total Bilirubin 1.30 H (0.2-1.0) mg/dL AST 8 L (13-39) U/L ALT 4 L (7-52) U/L Alkaline Phosphatase 73 (34-104) U/L Troponin I 0.03 (<0.04) ng/mL Total Protein 6.7 (6.4-8.9) g/dL Albumin 3.7 (3.2-5.2) g/dL Globulin 3.0 (2-4) g/dL Albumin/Globulin Ratio 1.2 (1-3) 11/05/19 Range/Units 13:35 WBC (3.5-10.8) 10^3/uL RBC (3.70-4.87) 10^6 /uL Hgb (12.0-16.0) g/dL Hct (35-47) % MCV (80-97) fL MCH (27-31) pg MCHC (31-36) g/dL RDW (10-15) % Plt Count (150-450) 10^3/uL MPV (7.4-10.4) fL Neut % (Auto) % Lymph % (Auto) % [place] % (Auto) % Eos % (Auto) % Baso % (Auto) % Absolute Neuts (auto) (1.5-7.7) 10^3/ul Absolute Lymphs (auto) (1.0-4.8) 10^3/ul Absolute Monos (auto) (0-0.8) 10^3/ul Absolute Eos (auto) (0-0.6) 10^3/ul Absolute Basos (auto) (0-0.2) 10^3/ul Absolute Nucleated RBC 10^3/ul Nucleated RBC % INR (Anticoag Therapy) 1.71 H (0.82-1.09) Sodium (135-145) mmol/L Potassium (3.5-5.0) mmol/L Chloride (101-111) mmol/L Carbon Dioxide (22-32) mmol/L Anion Gap (2-11) mmol/L BUN (6-24) mg/dL Creatinine (0.51-0.95) mg/dL Est GFR ( Amer) (>60) Est GFR (Non-Af Amer) (>60) BUN/Creatinine Ratio (8-20) Glucose (70-100) mg/dL Lactic Acid (0.5-2.0) mmol/L Calcium (8.6-10.3) mg/dL Magnesium (1.9-2.7) mg/dL Total Bilirubin (0.2-1.0) mg/dL AST (13-39) U/L ALT (7-52) U/L Alkaline Phosphatase (34-104) U/L Troponin I (<0.04) ng/mL Total Protein (6.4-8.9) g/dL Albumin (3.2-5.2) g/dL Globulin (2-4) g/dL Albumin/Globulin Ratio (1-3) Microbiology and Other Data: Microbiology 02/24/19 15:59 Aerobic Blood Culture - Preliminary Blood Venous No Growth Day 4 Anaerobic Blood Culture - Preliminary No Growth Day 4 02/24/19 15:45 Aerobic Blood Culture - Preliminary Blood Venous No Growth Day 4 Anaerobic Blood Culture - Preliminary No Growth Day 4 02/23/19 14:35 Urine Culture - Final Urine Escherichia Coli 02/23/19 22:45 Nasal Screen MRSA (PCR) - Final Nasal Mrsa Not Detected Assess/Plan/Problems-Billing Assessment: 73 y/o F with h/o COPD (2L of o2 at night), HFpEF, Chronic Afib (on atenolol, dilti and eliquis), HTN,DM and tobacco use presented with acute bilateral knee pain s/p fall found to have AF with RVR, hypoxic respiratory failure, Right Pleural Effusion with stay c/b hypotension and bradycardia - Patient Problems (1) Hypoxia Current Visit: Yes Status: Acute Code(s): R09.02 - HYPOXEMIA SNOMED Code(s ): 683682417 Comment: -still requiring 4 L of oxygen -pulm consulted -thoracentesis today (2) Urinary retention Current Visit: No Status: Acute Code(s): R33.9 - RETENTION OF URINE, UNSPECIFIED SNOMED Code(s): 736418934 Comment: -remove jimenez today -not mobilizing -encouraged fro ambulation -more likely functional -Continue PT (3) Knee pain Current Visit: Yes Status: Acute Code(s): M25.569 - PAIN IN UNSPECIFIED KNEE SNOMED Code(s): 05197718 Comment: -developed s/p fall -no fracture on xray -tylenol prn (4) Atrial fibrillation Current Visit: Yes Status: Acute Code(s): I48.91 - UNSPECIFIED ATRIAL FIBRILLATION SNOMED Code(s): 10107260 Comment: -RVR on admission now rate controlled -atenolol and diltiazem stopped after pt became sherrie with frequent pauses -tolerating metoprolol well; we will titrate according to HR -eliquis on hold- for thora (5) Pleural effusion Current Visit: Yes Status: Acute Code(s): J90 - PLEURAL EFFUSION, NOT ELSEWHERE CLASSIFIED SNOMED Code(s): 30050041 Comment: -has right sided pleural effusion with atlectasis -thoracentesis was done in september and was negative for any malignany -In September was transudative secondary to heart failure -lasix stopped -thora today (6) CHF (congestive heart failure) Current Visit: Yes Status: Acute Code(s): I50.9 - HEART FAILURE, UNSPECIFIED SNOMED Code(s): 37361744 Comment: -acute on chronic diastolic HF; improving -decompensation in setting of AF with RVR -echo done in 09/2018- EF of 60-65% with severe LA dilatation with moderate to severe calcification of mitral valve and mild dynamic obstruction of LV. -I and O daily -daily weight -lasix stopped; low K today; repleting (7) HTN (hypertension) Current Visit: Yes Status: Acute Code(s): I10 - ESSENTIAL (PRIMARY) HYPERTENSION SNOMED Code(s): 45514111 Comment: monitor on metoprolol (8) UTI (urinary tract infection) Current Visit: Yes Status: Acute Comment: -culture clear now - received 3 doses of iv abx when hypotensive (9) Lung nodule Current Visit: Yes Status: Acute Code(s): R91.1 - SOLITARY PULMONARY NODULE SNOMED Code(s): 212028649 Comment: -unchanged from previous scan in september -also has pleural effusion; negative for malignancy in september -follow up with repeat CT in 6 month and consult with pulmonology as an outpatient (10) DVT prophylaxis Current Visit: Yes Status: Acute Code(s): PGD2658 - SNOMED Code(s): 685580218 Comment: -eliquis on hold Status and Disposition: Inpatient needs MONIKA on discharge; accepted by [facility] Attending: Juanis Polanco Attestation Documenting Resident: Jimena Pearlta Supervising Physician: Juanis Polanco Attending/Supervising Physician Comment: Attending Assessment and Plan. I have read with and agree the resident's note 73F PMH COPD on home 2L nocturnal O2, ongoing tob use, HFpEF (calcified mitral annulus mild-mod MS), Afib on AC, HTN, CVA and aneurysm s/p clipping without residual deficits who presented s/p mechanical fall found to have hypoxic respiratory failure 2/2 CHF exacerbation, recurrent R pleural effusion, initial hospital course c/b iatrogenic bradycardia and urinary retention. Plan is as follows: #Hypoxic Resp Failure: 2/2 to CHF exacerbation and pleural effusion -Cont supportive O2 #R Pleural Effusion: Transudative in the past, likely from CHF, if hypoxia not improving, consult to pulm, does have incidental round atlectasis on CT scan unchanged from September #HFpEF: Echo in September with mild-mod MS, severe elevated RVSP, tolerated BID lasix , holding today given contraction alkalosis #Afib: Controlled w low dose metop, continue AC #Urinary retention: possibly related to constipation, straight cath PRN, start bowel regimen, question of UTI earlier in hospital, already treated, remove jimenez #Hx of CVA, PL[employer] shunt in place, no residual deficits #DVT PPX: Eliquis, resume after thora today #Code-Full Dispo: [place] tomorrow Attestation: This service has been performed in part by a resident under the direction of a teaching physician.I, Juanis Polanco, performed the service, or was physically present during the critical, or locke portions of the service, furnished by the resident. I participated in the management of the patient.
[2019-03-04 06:56] LABS: Magnesium 1.3 mg/dL (1.9-2.7)
[2019-03-04] MEDS: SPIRIVA Respimat* (tiotropium) 2.5 mcg/inh Inhaler INH SCH (07:52)
[2019-03-04] MEDS: Cyanocobalamin TAB* 500 MCG PO SCH (08:46)
[2019-03-04] MEDS: Ferrous Sulfate TAB* 325 MG PO SCH (08:47)
[2019-03-04] MEDS: Metoprolol Tartrate TAB* 25 MG PO SCH ×2 (08:47→21:33)
[2019-03-04] MEDS: Citalopram TAB* 40 MG PO SCH (08:48)
[2019-03-04] MEDS: Nystatin TOP POWDER* 15 GM BTL TOPICAL SCH ×3 (08:48→21:33)
[2019-03-04] MEDS: Pantoprazole TAB * 40 MG TAB PO SCH (08:48)
[2019-03-04] MEDS: Nicotine PATCH 21 MG/24 HR* PATCH TRANSDERM SCH (08:48)
[2019-03-04] MEDS: UREA TOPICAL SCH (08:51)
[2019-03-04] MEDS: [UNRECOGNIZED DRUG - OTHER] TOPICAL SCH (08:51)
[2019-03-04] MEDS: Magnesium Oxide TAB* 400 MG PO SCH (11:04)
[2019-03-04] MEDS: Acetaminophen TAB* 325 MG PO PRN ×2 (11:06→18:13)
[2019-03-04] MEDS: Polyethylene Glycol 3350* 17 GM PACKET PO PRN (11:10)
--- NOTE | 2019-03-04 17:04 | BRIEFOPN ---
Brief Operative/Procedure Note - Operation Details Pre-Op Diagnosis: Right sided Pleural Effusion Post-Op Diagnosis: Right sided Pleural Effusion Procedures: 1. Thoracentesis Surgeon(s)/Proceduralists: 1. Kathy Green. 2. Jimena Peralta Anesthesia: Local Anesthesia- Lidocaine 1% Estimated Blood Loss: Minimal Findings: About 1000 ml pleural fluid drained-yellowish red in color Specimen(s)/Culture(s) Description: yellow-red pleural fluid Complications: Minimal bleeding
[2019-03-04 17:14] LABS: Body Fluid Source Pleural Fluid
--- NOTE | 2019-03-04 18:05 | PN ---
Progress Note - Progress Note Date of Service: 03/04/19 - Pulm f/u note Note: Pt seen and examined at bedside. Pt reports slight improvement in SOB, denies cough Active Medications Generic Name Dose Route Start Last Admin Trade Name Freq PRN Reason Stop Dose Admin Acetaminophen 650 mg 02/23/19 15:43 03/04/19 11:06 Tylenol Tab* PO 650 mg Q4H PRN Administration MILD PAIN or TEMP > 100.4 Al Hydrox/Mg Hydrox/Simethicone 30 ml 02/23/19 15:43 Maalox Plus* PO Q6H PRN INDIGESTION Albuterol 2 puff 02/23/19 15:46 Ventolin Hfa Inhaler* INH Q4H PRN SHORTNESS OF BREATH Apixaban 5 mg 03/05/19 09:00 Eliquis* PO BID [facility] Citalopram Hydrobromide 40 mg 02/24/19 09:00 03/04/19 08:48 Celexa Tab* PO 40 mg DAILY [facility] Administration Cyanocobalamin 1,000 mcg 02/24/19 09:00 03/04/19 08:46 Vitamin B12 Tab* PO 1,000 mcg DAILY [facility] Administration Ferrous Sulfate 325 mg 02/24/19 09:00 03/04/19 08:47 Ferrous Sulfate Tab* PO 325 mg DAILY [facility] Administration Furosemide 40 mg 03/05/19 09:00 Lasix Tab* PO DAILY [facility] Magnesium Oxide 400 mg 03/04/19 10:00 03/04/19 11:04 Magox 400 Tab* PO 400 mg DAILY [facility] Administration Metoprolol Tartrate 12.5 mg 02/26/19 15:08 03/04/19 08:47 Lopressor Tab* PO 12.5 mg Q12HR [facility] Administration Nicotine 1 patch 02/24/19 08:00 03/04/19 08:48 Nicotine Patch 21 Mg/24 Hr* TRANSDERM 1 patch DAILY@0800 [facility] Administration Nft: Urea-C40 Cream 1 applic 02/24/19 09:00 03/04/19 08:51 40% 1 Applic TOPICAL Not Given DAILY [facility] Nystatin 1 applic 02/23/19 21:00 03/04/19 14:06 Nystatin Top Powder* TOPICAL 1 applic TID [facility] Administration Ondansetron HCl 4 mg 02/23/19 15:43 Zofran Inj* IV Q4H PRN NAUSEA/VOMITING Pantoprazole Sodium 40 mg 02/27/19 09:00 03/04/19 08:48 Protonix Tab* PO 40 mg DAILY [facility] Administration Pharmacy Profile Note 1 note 02/23/19 21:00 03/03/19 20:41 Nicotine Patch Removal Note* FOLLOW UP 1 note 2100 [facility] Administration Polyethylene Glycol/Electrolytes 17 gm 03/01/19 14:33 03/04/19 11:10 Miralax* PO 17 gm DAILY PRN Administration CONSTIPATION Senna 1 tab 02/23/19 15:43 02/28/19 10:33 Senokot 8.6 Mg Tab* PO 1 tab BID PRN Administration CONSTIPATION Tiotropium [place] 2 puff 02/24/19 09:00 03/04/19 07:52 Spiriva Respimat 2.5 Mcg INH Not Given DAILY [facility] Vital Signs Temp Pulse Resp BP Pulse Ox 97.4 F 78 20 136/82 97 03/04/19 11:15 03/04/19 11:15 03/04/19 11:15 03/04/19 11:15 03/04/19 11:15 O/E: Pt in NAD HEENT: PERRLA, No JVD Lungs: Diminished air entry b/l, R>L CVS: S1, S2+, irregular Abd: Soft, BS+ Ext: Normal ROM Neuro: No focal deficits Skin: No rash Laboratory Results - last 24 hr 03/04/19 03/04/19 03/04/19 04:33 07:24 16:48 Sodium 138 Potassium 3.2 L Chloride 91 L Carbon Dioxide 39 H Anion Gap 8 BUN 33 H Creatinine 1.18 H Est GFR ( Amer) 54.3 Est GFR (Non-Af Amer) 44.9 BUN/Creatinine Ratio 28.0 H Glucose 122 H POC Glucose (mg/dL) 92 Calcium 9.0 Magnesium 1.3 L Fluid Source Pleural fluid I/R: 73 y o f with significant smoking history with h/o COPD, hypoxic resp failure, A.fib a/w worsening SOB, being treated for acute CHF Pt was noted to have significant rt effusion which might be contributing to SOB , hypoxia Pt had thoracentesis with removal of 1L of pleural fluid on right side Fluid was light yellow in the beginning, pt c/o chest discomfort towards end of procedure and also had blood stained fluid drained towards the end. CXR negative for PTX Pain improved after procedure was stopped, suspect trapped lung Pt noted to have pleural nodularity when scanned with U/S Fluid sent to lab Pt had irregular heart rhythm and EKG was obtained She remained hemodynamically stable
[2019-03-04 20:18] LABS: Body Fluid Mono 4 %; Body Fluid Variant Lymph 1 %
[2019-03-04] MEDS: Nicotine Patch Removal NOTE FOLLOW UP SCH (21:35)
--- NOTE | 2019-03-05 02:26 | PRO ---
THORACENTESIS REPORT: DATE OF PROCEDURE: 03/04/19 - ROOM #[id number] PROCEDURE PERFORMED: Ultrasound-guided thoracentesis on the right side. PREPROCEDURAL DIAGNOSIS: [id number] right pleural effusion. ANESTHESIA: 1% lidocaine 6 cc. DESCRIPTION OF PROCEDURE: Informed consent was obtained from the patient prior to the procedure after all the risks and benefits were all explained. The patient was sitting up and leaning forward during the procedure. Strict aseptic precautions and barrier techniques were utilized. Portable ultrasound was utilized at the bedside to localize large amount of right pleural effusion. The patient noted to have pleural thickening and nodularity of the pleura. Local anesthesia was ensured with 1% lidocaine. Area was disinfected with chlorhexidine. Sterile drape was placed. CareFusion 8-[place]ogol[place] thoracentesis catheter was utilized for the procedure. 1% lidocaine was instilled down into the pleural space taking precautions. No fluid was aspirated with the lidocaine needle. Stab incision was made in the back. A CareFusion 8-[place] thoracentesis catheter was then inserted under manual suction taking precautions. The catheter was left in place, the needle was removed. 950 mL of light yellow fluid was aspirated. Towards the end of the procedure, the patient complained of discomfort in her chest. At that time, blood-stained fluid was drained. Given the significant pain and appearance of blood-stained fluid, procedure was stopped and catheter was removed. Sterile Band-Aid was applied to the area. Portable chest x-ray was obtained at the bedside, which revealed no pneumothorax. Vitals were obtained after the procedure, which were found to be stable. The patient had a brief episode of bradycardia postprocedure when she was having the pain. The patient with history of atrial fibrillation, the heart rate has been fluctuant. Blood pressure is stable. O2 sat improved to 100% right after the procedure. The patient reported improvement in her pain. She is being monitored closely for any acute changes. We will obtain EKG to evaluate for any abnormality. The patient has been mentating well throughout the procedure and postprocedure also with no changes. Fluid was sent into the lab for cytological and biochemical exam. [id number]/[facility] #: [id number] DOREEN
[2019-03-05 05:29] LABS: BUN/Creatinine Ratio 27.8 (8-20); Calcium 8.7 mg/dL (8.6-10.3); EGFR Non-African American 46.3 (>60); Potassium 4.2 mmol/L (3.5-5.0)
--- NOTE | 2019-03-05 06:51 | PN ---
Subjective Date of Service: 03/05/19 Interval History: HD 11 on 03/05 73 y/o F with h/o COPD (2L of o2 at night), HFpEF, Chronic Afib (on atenolol, dilti and eliquis), HTN,DM and tobacco use presented with acute bilateral knee pain s/p fall found to have AF with RVR, hypoxic respiratory failure, Right Pleural Effusion with stay c/b hypotension and bradycardia. S/P thoracentesis Overnight- urinary retention- straight cath done Vitals stable; tachy has urinary retention again; post void urine >400 denies CP, SOB, palpitation Objective Active Medications: Acetaminophen (Tylenol Tab*) 650 mg PO Q4H PRN PRN Reason: MILD PAIN or TEMP > 100.4 Last Admin: 03/04/19 18:13 Dose: 650 mg Al Hydrox/Mg Hydrox/Simethicone (Maalox Plus*) 30 ml PO Q6H PRN PRN Reason: INDIGESTION Albuterol (Ventolin Hfa Inhaler*) 2 puff INH Q4H PRN PRN Reason: SHORTNESS OF BREATH Apixaban (Eliquis*) 5 mg PO BID [facility] Citalopram Hydrobromide (Celexa Tab*) 40 mg PO DAILY [facility] Last Admin: 03/04/19 08:48 Dose: 40 mg Cyanocobalamin (Vitamin B12 Tab*) 1,000 mcg PO DAILY [facility] Last Admin: 03/04/19 08:46 Dose: 1,000 mcg Ferrous Sulfate (Ferrous Sulfate Tab*) 325 mg PO DAILY [facility] Last Admin: 03/04/19 08:47 Dose: 325 mg Furosemide (Lasix Tab*) 40 mg PO DAILY [facility] Magnesium Oxide (Magox 400 Tab*) 400 mg PO DAILY [facility] Last Admin: 03/04/19 11:04 Dose: 400 mg Metoprolol Tartrate (Lopressor Tab*) 12.5 mg PO Q12HR [facility] Last Admin: 03/04/19 21:33 Dose: 12.5 mg Nicotine (Nicotine Patch 21 Mg/24 Hr*) 1 patch TRANSDERM DAILY@0800 [facility] Last Admin: 03/04/19 08:48 Dose: 1 patch Nft: Urea-C40 Cream (40% 1 Applic) 1 applic TOPICAL DAILY [facility] Last Admin: 03/04/19 08:51 Dose: Not Given Nystatin (Nystatin Top Powder*) 1 applic TOPICAL TID [facility] Last Admin: 03/04/19 21:33 Dose: 1 applic Ondansetron HCl (Zofran Inj*) 4 mg IV Q4H PRN PRN Reason: NAUSEA/VOMITING Pantoprazole Sodium (Protonix Tab*) 40 mg PO DAILY [facility] Last Admin: 03/04/19 08:48 Dose: 40 mg Pharmacy Profile Note (Nicotine Patch Removal Note*) 1 note FOLLOW UP 2100 [facility] Last Admin: 03/04/19 21:35 Dose: 1 note Polyethylene Glycol/Electrolytes (Miralax*) 17 gm PO DAILY PRN PRN Reason: CONSTIPATION Last Admin: 03/04/19 11:10 Dose: 17 gm Senna (Senokot 8.6 Mg Tab*) 1 tab PO BID PRN PRN Reason: CONSTIPATION Last Admin: 02/28/19 10:33 Dose: 1 tab Tiotropium [place] (Spiriva Respimat 2.5 Mcg) 2 puff INH DAILY [facility] Last Admin: 03/04/19 07:52 Dose: Not Given Vital Signs - 8 hr 03/04/19 03/05/19 22:53 03:01 Temperature 98.6 F 98.6 F Pulse Rate 96 103 Respiratory 20 20 Rate Blood Pressure 114/74 116/88 (mmHg) O2 Sat by Pulse 93 93 Oximetry Oxygen Devices in Use Now: Nasal Cannula Exam: Patient is lying on a bed with no acute distress HEENT- Normocephalic and atraumatic. Bruise resolved Lungs- crackles. decreased breath sound on right Heart: Irregular rhythm. S1/S2 heard; difficult to appreciate murmur Abdomen: Soft, nondistended and nontender. Normal BS heard Extremties: Multiple bruise on upper extremities. Bilateral pedal edema Neuro: Alert, oriented and coperative Result Diagrams: 02/27/19 04:23 03/05/19 04:39 Additional Lab and Data: Lab Results 02/23/19 02/23/19 02/23/19 Range/Units 12:52 12:52 13:35 WBC 8.2 (3.5-10.8) 10^3/uL RBC 4.44 (3.70-4.87) 10^6 /uL Hgb 13.8 (12.0-16.0) g/dL Hct 42 (35-47) % MCV 93 (80-97) fL MCH 31 (27-31) pg MCHC 33 (31-36) g/dL RDW 15 (10-15) % Plt Count 159 (150-450) 10^3/uL MPV 7.5 (7.4-10.4) fL Neut % (Auto) 87.5 % Lymph % (Auto) 4.5 % Alfalfa % (Auto) 5.4 % Eos % (Auto) 1.4 % Baso % (Auto) 1.2 % Absolute Neuts (auto) 7.1 (1.5-7.7) 10^3/ul Absolute Lymphs (auto) 0.4 L (1.0-4.8) 10^3/ul Absolute Monos (auto) 0.4 (0-0.8) 10^3/ul Absolute Eos (auto) 0.1 (0-0.6) 10^3/ul Absolute Basos (auto) 0.1 (0-0.2) 10^3/ul Absolute Nucleated RBC 0.0 10^3/ul Nucleated RBC % 0.1 INR (Anticoag Therapy) (0.82-1.09) Sodium 134 L (135-145) mmol/L Potassium 4.4 (3.5-5.0) mmol/L Chloride 101 (101-111) mmol/L Carbon Dioxide 24 (22-32) mmol/L Anion Gap 9 (2-11) mmol/L BUN 26 H (6-24) mg/dL Creatinine 1.42 H (0.51-0.95) mg/dL Est GFR ( Amer) 43.9 (>60) Est GFR (Non-Af Amer) 36.3 (>60) BUN/Creatinine Ratio 18.3 (8-20) Glucose 131 H (70-100) mg/dL Lactic Acid 1.9 (0.5-2.0) mmol/L Calcium 9.2 (8.6-10.3) mg/dL Magnesium 0.9 L* (1.9-2.7) mg/dL Total Bilirubin 1.30 H (0.2-1.0) mg/dL AST 8 L (13-39) U/L ALT 4 L (7-52) U/L Alkaline Phosphatase 73 (34-104) U/L Troponin I 0.03 (<0.04) ng/mL Total Protein 6.7 (6.4-8.9) g/dL Albumin 3.7 (3.2-5.2) g/dL Globulin 3.0 (2-4) g/dL Albumin/Globulin Ratio 1.2 (1-3) 02/23/19 Range/Units 13:35 WBC (3.5-10.8) 10^3/uL RBC (3.70-4.87) 10^6 /uL Hgb (12.0-16.0) g/dL Hct (35-47) % MCV (80-97) fL MCH (27-31) pg MCHC (31-36) g/dL RDW (10-15) % Plt Count (150-450) 10^3/uL MPV (7.4-10.4) fL Neut % (Auto) % Lymph % (Auto) % Alfalfa % (Auto) % Eos % (Auto) % Baso % (Auto) % Absolute Neuts (auto) (1.5-7.7) 10^3/ul Absolute Lymphs (auto) (1.0-4.8) 10^3/ul Absolute Monos (auto) (0-0.8) 10^3/ul Absolute Eos (auto) (0-0.6) 10^3/ul Absolute Basos (auto) (0-0.2) 10^3/ul Absolute Nucleated RBC 10^3/ul Nucleated RBC % INR (Anticoag Therapy) 1.71 H (0.82-1.09) Sodium (135-145) mmol/L Potassium (3.5-5.0) mmol/L Chloride (101-111) mmol/L Carbon Dioxide (22-32) mmol/L Anion Gap (2-11) mmol/L BUN (6-24) mg/dL Creatinine (0.51-0.95) mg/dL Est GFR ( Amer) (>60) Est GFR (Non-Af Amer) (>60) BUN/Creatinine Ratio (8-20) Glucose (70-100) mg/dL Lactic Acid (0.5-2.0) mmol/L Calcium (8.6-10.3) mg/dL Magnesium (1.9-2.7) mg/dL Total Bilirubin (0.2-1.0) mg/dL AST (13-39) U/L ALT (7-52) U/L Alkaline Phosphatase (34-104) U/L Troponin I (<0.04) ng/mL Total Protein (6.4-8.9) g/dL Albumin (3.2-5.2) g/dL Globulin (2-4) g/dL Albumin/Globulin Ratio (1-3) Microbiology and Other Data: Microbiology 02/24/19 15:59 Aerobic Blood Culture - Preliminary Blood Venous No Growth Day 4 Anaerobic Blood Culture - Preliminary No Growth Day 4 02/24/19 15:45 Aerobic Blood Culture - Preliminary Blood Venous No Growth Day 4 Anaerobic Blood Culture - Preliminary No Growth Day 4 02/23/19 14:35 Urine Culture - Final Urine Escherichia Coli 02/23/19 22:45 Nasal Screen MRSA (PCR) - Final Nasal Mrsa Not Detected Assess/Plan/Problems-Billing Assessment: 73 y/o F with h/o COPD (2L of o2 at night), HFpEF, Chronic Afib (on atenolol, dilti and eliquis), HTN,DM and tobacco use presented with acute bilateral knee pain s/p fall found to have AF with RVR, hypoxic respiratory failure, Right Pleural Effusion with stay c/b hypotension and bradycardia - Patient Problems (1) Hypoxia Current Visit: Yes Status: Acute Code(s): R09.02 - HYPOXEMIA SNOMED Code(s ): 977767152 Comment: -thora done yesterday -oxygen down to 2L denies any sx (2) Urinary retention Current Visit: No Status: Acute Code(s): R33.9 - RETENTION OF URINE, UNSPECIFIED SNOMED Code(s): 234966102 Comment: -jimenez in again -not mobilizing -encouraged fro ambulation -more likely functional -Continue PT (3) Knee pain Current Visit: Yes Status: Acute Code(s): M25.569 - PAIN IN UNSPECIFIED KNEE SNOMED Code(s): 49586133 Comment: -developed s/p fall -no fracture on xray -tylenol prn (4) Atrial fibrillation Current Visit: Yes Status: Acute Code(s): I48.91 - UNSPECIFIED ATRIAL FIBRILLATION SNOMED Code(s): 09487031 Comment: -RVR on admission now rate controlled -atenolol and diltiazem stopped after pt became sherrie with frequent pauses -tolerating metoprolol well; titrated to 50 mg BID -started eliquis (5) Pleural effusion Current Visit: Yes Status: Acute Code(s): J90 - PLEURAL EFFUSION, NOT ELSEWHERE CLASSIFIED SNOMED Code(s): 91804696 Comment: -has right sided pleural effusion with atlectasis -thoracentesis was done in september and was negative for any malignany -In September was transudative secondary to heart failure -on home dose of lasix thora yesterdy -waiting results (6) CHF (congestive heart failure) Current Visit: Yes Status: Acute Code(s): I50.9 - HEART FAILURE, UNSPECIFIED SNOMED Code(s): 73518219 Comment: -acute on chronic diastolic HF; improving -decompensation in setting of AF with RVR -echo done in 09/2018- EF of 60-65% with severe LA dilatation with moderate to severe calcification of mitral valve and mild dynamic obstruction of LV. -I and O daily -daily weight -on lasix; low K today; repleting (7) HTN (hypertension) Current Visit: Yes Status: Acute Code(s): I10 - ESSENTIAL (PRIMARY) HYPERTENSION SNOMED Code(s): 01827851 Comment: monitor on metoprolol (8) UTI (urinary tract infection) Current Visit: Yes Status: Acute Comment: -culture clear now - received 3 doses of iv abx when hypotensive (9) Lung nodule Current Visit: Yes Status: Acute Code(s): R91.1 - SOLITARY PULMONARY NODULE SNOMED Code(s): 398352764 Comment: -unchanged from previous scan in september -also has pleural effusion; negative for malignancy in september -waiting for pleural fluid results -follow up with repeat CT in 6 month and consult with pulmonology as an outpatient (10) DVT prophylaxis Current Visit: Yes Status: Acute Code(s): ZIX1857 - SNOMED Code(s): 237717975 Comment: -eliquis on hold Status and Disposition: Inpatient needs MONIKA on discharge; accepted by [facility] Attending: Juanis Polanco Attestation Documenting Resident: Jimena Peralta Supervising Physician: Juanis Polanco Attending/Supervising Physician Comment: 73F PMH COPD on home 2L nocturnal O2, ongoing tob use, HFpEF (calcified mitral annulus mild-mod MS), Afib on AC, HTN, CVA and aneurysm s/p clipping without residual deficits who presented s/p mechanical fall found to have hypoxic respiratory failure 2/2 CHF exacerbation, recurrent R pleural effusion, initial hospital course c/b iatrogenic bradycardia and urinary retention. Plan is as follows: #Hypoxic Resp Failure: 2/2 to CHF exacerbation and pleural effusion -Cont supportive O2 #R Pleural Effusion: Transudative in the past, likely from CHF, if hypoxia not improving, consult to pulm, does have incidental round atlectasis on CT scan unchanged from September sp thora #HFpEF: Echo in September with mild-mod MS, severe elevated RVSP, tolerated BID lasix , restart daily #Afib: Controlled w low dose metop, continue AC-> increase metop #Urinary retention: possibly related to constipation, straight cath PRN, start bowel regimen, question of UTI earlier in hospital, already treated, place jimenez #Hx of CVA, BAN[employer] shunt in place, no residual deficits #DVT PPX: Kamryn resume #Code-Full Dispo: [facility] waiting for auth Attestation: This service has been performed in part by a resident under the direction of a teaching physician.I, Juanis Polanco, performed the service, or was physically present during the critical, or locke portions of the service, furnished by the resident. I participated in the management of the patient.
[2019-03-05] MEDS: SPIRIVA Respimat* (tiotropium) 2.5 mcg/inh Inhaler INH SCH (08:21)
[2019-03-05] MEDS: Magnesium Oxide TAB* 400 MG PO SCH (08:59)
[2019-03-05] MEDS: Citalopram TAB* 40 MG PO SCH (08:59)
[2019-03-05] MEDS: Furosemide TAB* 40 MG PO SCH (08:59)
[2019-03-05] MEDS: Nicotine PATCH 21 MG/24 HR* PATCH TRANSDERM SCH (08:59)
[2019-03-05] MEDS: Apixaban* 5 MG TAB PO SCH ×2 (08:59→22:09)
[2019-03-05] MEDS: Pantoprazole TAB * 40 MG TAB PO SCH (08:59)
[2019-03-05] MEDS: Ferrous Sulfate TAB* 325 MG PO SCH (08:59)
[2019-03-05] MEDS: Cyanocobalamin TAB* 500 MCG PO SCH (08:59)
[2019-03-05] MEDS: UREA TOPICAL SCH (09:00)
[2019-03-05] MEDS: [UNRECOGNIZED DRUG - OTHER] TOPICAL SCH (09:00)
[2019-03-05] MEDS ORDERED: Metoprolol Tartrate TAB* 25 MG PO SCH (09:00)
[2019-03-05] MEDS: Nystatin TOP POWDER* 15 GM BTL TOPICAL SCH ×3 (09:00→22:10)
--- NOTE | 2019-03-05 15:13 | DS ---
CC: Dr. Morgan Mccarthy DATE OF ADMISSION: 02/23/2019. DATE OF DISCHARGE: 03/08/19 PRIMARY CARE PHYSICIAN: Dr. Morgan Mccarthy. DISPOSITION AT THE TIME OF DISCHARGE: Stable to be discharged to [facility] for continued subacute rehab. PRIMARY DIAGNOSIS: 1. Heart failure with preserved ejection fraction exacerbation. 2. Atrial fibrillation with rapid ventricular response. 3. Hospital course complicated by hypertension and bradycardia, resolved over course of hospital stay. 4. Right pleural effusion, recurrent, transudative. SECONDARY DIAGNOSES: 1. COPD on home 2 liters nocturnal oxygen. 2. Ongoing tobacco use. 3. History of heart failure with preserved ejection fraction with calcified mitral anulus with mild to moderate mitral stenosis. 4. Atrial fibrillation, on anticoagulation. 5. Hypertension. 6. CVA and aneurysm, status post clipping with [employer] shunt without residual deficits. 7. Urinary retention. MEDICATIONS AT THE TIME OF DISCHARGE: 1. Apixaban 5 mg p.o. b.i.d. 2. Alendronate 70 mg p.o. weekly. 3. Cholestyramine Resin 4 gm p.o. t.i.d. 4. Silvadene cream one application topically to wounds prn. 5. Albuterol inhaler. 6. ProAir RespiClick two puffs inhaled q.4 hours prn. 7. Citalopram 40 mg p.o. daily. 8. Cyanocobalamin 1,000 mcg p.o. daily. 9. Ferrous Sulfate 325 mg p.o. daily. 10. Furosemide 40 mg p.o. every other day 11. Montelukast 10 mg p.o. daily. 12. Omeprazole 20 mg p.o. b.i.d. 13. Incruse Ellipta MDI one puff inhaled daily. 14. Urea-C40 cream 40% one application topically daily to the lower extremities prn. 15. Metoprolol Tartrate 25 mg p.o. b.i.d. MEDICATIONS CHANGES TO THIS HOSPITALIZATION: Include: 1. The discontinuation of Diltiazem 120 mg p.o. daily. 2. Atenolol 25 mg p.o. b.i.d. 3. Losartan 100 mg p.o. daily. 4. Tramadol 50 mg p.o. q.6 hours. HISTORY OF PRESENT ILLNESS AND HOSPITAL COURSE: This is a 73-year-old female who was living with her sister prior to admission who presented to the emergency room on 02/23/2019 in the setting of a mechanical fall and dizziness. In the emergency room, she was found to have significant hypoxemia, needing 4 to 5 liters of nasal cannula, a large right pleural effusion which was recurrent and last drained in September of 2018, and was also in A-fib with RVR, and thus the Hospitalist team was asked to admit her and her hospital course by problem was as follows. HOSPITAL COURSE BY PROBLEM: 1. Hypoxic respiratory failure thought to be secondary to CHF exacerbation along with right pleural effusion. She was started on Lasix early in her hospital course, but became hypotensive. This was also in conjunction with starting both calcium channel jigna and beta jigna which caused iatrogenic bradycardia coupled with diuresis and significant iatrogenic bradycardia to 30. The patient became hypotensive which necessitated further fluids which slowed down diuresis goals by a total of 48 hours. Ultimately, diuresis was started on around hospital day five and she tolerated b.i.d. diuresis well, kept negative, and then finally a thoracentesis was performed on 03/04/2019 to remove one liter of pleural fluid and the patient's oxygen requirement fell to 2 liters which is closer to her baseline. She can continue with gentle diuresis with Furosemide daily on discharge. 2. Heart failure with preserved ejection fraction with active exacerbation. Echocardiogram last done in September of 2018 showed mild to moderate MS with severe elevated RVSP. The patient was placed on b.i.d. Lasix which she tolerated well in the last half of her hospitalization after the above complication and overall was admitted at 205 pounds and discharged at 190 pounds reflecting a 15 pound weight loss of fluid. She was kept negative daily from March 01 to March 05 and also one liter of fluid was removed via thoracentesis which is a repeat procedure last done in September and last was transudative with no cytology present. 3. Right pleural effusion: This is thought to be transudative with again cytology negative twice, both in September of 2018 and this month. Most likely this is secondary to decompensated diastolic heart failure which patient needs close monitoring of her diuresis goals as well as diet control with low salt diet and given propensity to have a now second recurrence of pleural effusion. Again procedure performed on 03/04/2019 revealed 1.1 liters of clear pleural fluid with some small amount of blood at the end of the procedure without any complication. Of note, the patient does have on CT scan a nodular density that is unchanged from September of 2018 which should continue to be surveyed by primary care. 4. Atrial fibrillation with rapid ventricular response. The patient was on both Diltiazem and Atenolol, although this was a med error. Diltiazem was supposed to have been discontinued by last hospitalization, although it remained on. She was first started back on Atenolol and Diltiazem and became quite bradycardic with frequent pauses. Metoprolol was reintroduced at low doses for rate control and she remained rate controlled with Metoprolol 25 mg p.o. b.i.d. This may need to be continued because her CHADS-VASc score is greater than 2. She remains on anticoagulation. 5. Hypertension. The patient is on Losartan, Diltiazem and Atenolol prior to this admission. She had significant hypotension during this hospitalization and thus Losartan, Diltiazem, and Atenolol were all stopped and Metoprolol 25 mg p.o. b.i.d. was restarted with no evidence of hypertension and good rate control. 6. Tobacco use. The patient was offered nicotine replacement therapy which she declined. 7. COPD with history of 2 liters nocturnal oxygen. The patient did not have any evidence of exacerbation without wheezing. She uses prn inhalers. Her oxygen requirement was increased secondary to her heart failure exacerbation, but continued to do well from a bronchial respiratory standpoint. 8. Urinary retention. The patient has had significant off and on urinary retention requiring a Jimenez catheter after failed voiding trial. The patient was significantly immobile during this hospitalization and we think that this may improve with more mobilization as she returns to normal life. [facility] or subacute rehab may need to facilitate an extended voiding trial and further testing can be done as an outpatient if the patient continues to retain after she becomes mobile. She has no difficulty in urination, urgency, or frequency. A urine culture was done that showed no growth to date, and her jimenez placement was on 03/04/2019. 9. Mechanical fall. The patient was weak and dizzy likely from A-fib with RVR and heart failure exacerbation and she did fall without LOC. She had mild knee pain, but there was no fracture on x-ray and pain was well-controlled with Tylenol. 10. Incidental CT scan finding. A CT scan was done of the lungs which showed atypical round atelectasis and pleural nodule which is unchanged from September of 2018 where she also presented with CHF exacerbation. She can continue to follow with CT scan in six months as an outpatient. Furthermore, thoracentesis was done and was negative for malignancy both in September and in February of 2019. DVT PROPHYLAXIS: The patient was kept on her home dose of Eliquis. CODE STATUS: Discussion with code status was had with the patient. She confirms she is full code and her sister is her healthcare proxy. On the day of discharge, the patient is ambulating, tolerating diet, has jimenez cath in place, and having bowel movements without pain or complaints. She is ready for subacute rehab which PT recommended after prolonged ten day hospital stay in this multimorbid and frail elderly woman. LABS AND STUDIES DONE DURING THIS HOSPITAL: Labs on the day of discharge on : BMP: Sodium 134, potassium 4.2, chloride 92, carbon dioxide 36, BUN 32, creatinine 1.15, glucose 173. Last CBC done on 02/27/2019: White blood cell count 4.4, hemoglobin 12, hematocrit 36, platelets 157. Pleural fluid on 03/04/2019 showed no signs of infection. LDL and protein are pending to calculate lytes criteria. Cytology shows no malignancy. Micro done during this hospitalization shows blood cultures with no growth to date from 2018. Urine culture with no growth to date on 03/01/2019. Nasal culture with MRSA not detected. Pleural fluid on 03/04/2019 with no growth to date. Imaging done during this hospitalization includes: 1. Brain CT on 02/23/2019 with no intracranial pathology. 2. Knee x-ray on 02/23/2019 with no fracture. 3. Chest x-ray on 02/23/2019 which shows gross volume overload and right pleural effusion, cardiomegaly. 4. 02/23/2019, chest CT which shows again pleural effusion and round atelectasis in the right middle lobe, ? pleural nodule in the right middle lobe unchanged from 09/20/2018 and six month follow-up chest CT could be performed to confirm long-term stability. 5. Chest x-ray on 03/03/2019 which showed interval improvement of pulmonary edema, although persistent right pleural effusion. 6. Chest ultrasound on 03/04/2019 which showed a large right pleural effusion in preparation for thoracentesis.. 7. On 03/04/2019, chest x-ray showed resolution of right pleural effusion, status post thoracentesis with no pneumothorax. PROCEDURES DONE DURING THIS HOSPITALIZATION: Thoracentesis on 03/04/2019, performed by Dr. Green and Dr. Peralta. EKG showed atrial fibrillation, rate controlled at 110 with no ischemia. ITEMS TO FOLLOW-UP ON STATUS POST DISCHARGE: 1. Incidental lung CT findings. Needs repeat CT scan in six months from February of 2019 to confirm stability of right middle lobe finding that shows pleural nodule and round atelectasis. 2. Heart failure with preserved ejection fraction. The patient has had two recurrent transudative right pleural effusions. She may need more aggressive diuresis, although hypotension precluded us from continuing aggressively. Repeat chest x-ray can be done and follow-up with Pulmonology can be done to see if this is going to be a chronic and recurrent problem of this transudative pleural effusion. 3. A-fib with history of RVR. The patient came to us on Atenolol and Diltiazem. She was in A-fib with RVR, although in restarting her home medications, she has significant bradycardia with hypotension and did not tolerate restarting of her home medications, thus Metoprolol 25 mg p.o. b.i.d. was started. This may need to be changed. 4. Urinary retention. The patient has had off and on urinary retention for several years. Unclear if this a neurogenic component to this or if it is all functional in the setting of immobilization. We recommend that the patient ambulate and work closely with subacute rehab to determine if her bladder signals may normalized. She may need follow-up with Urology if her urinary retention persists. She has no evidence of postrenal obstruction. No evidence of infection and thus no indication for chronic Jimenez at this time, though b/c she has been immobile she has elected for jimenez and voiding trial at [facility] A physical exam was performed on the day of discharge and can be found in the progress note. Plan of care was discussed with the patient and her family. They have no further questions. The patient is stable to be discharged to [facility]. TIME SPENT: Sixty-five minutes were spent in the planning of this discharge with over half of that spent directly at the bedside of the patient providing direct patient care. If there are any questions about the care of this patient , please do not hesitate to reach out and contact me directly. My cell phone is [phone]. [id number]/CPS #: [id number] MTDD
--- NOTE | 2019-03-05 15:14 | PN ---
Progress Note - Progress Note Date of Service: 03/05/19 - Pulm f/u note Note: Pt seen and examined at bedside. Pt reports feeling better. Denies SOB, chest pain, cough Active Medications Generic Name Dose Route Start Last Admin Trade Name Freq PRN Reason Stop Dose Admin Acetaminophen 650 mg 02/23/19 15:43 03/04/19 18:13 Tylenol Tab* PO 650 mg Q4H PRN Administration MILD PAIN or TEMP > 100.4 Al Hydrox/Mg Hydrox/Simethicone 30 ml 02/23/19 15:43 Maalox Plus* PO Q6H PRN INDIGESTION Albuterol 2 puff 02/23/19 15:46 Ventolin Hfa Inhaler* INH Q4H PRN SHORTNESS OF BREATH Apixaban 5 mg 03/05/19 09:00 03/05/19 08:59 Eliquis* PO 5 mg BID KEYA Administration Citalopram Hydrobromide 40 mg 02/24/19 09:00 03/05/19 08:59 Celexa Tab* PO 40 mg DAILY KEYA Administration Cyanocobalamin 1,000 mcg 02/24/19 09:00 03/05/19 08:59 Vitamin B12 Tab* PO 1,000 mcg DAILY KEYA Administration Ferrous Sulfate 325 mg 02/24/19 09:00 03/05/19 08:59 Ferrous Sulfate Tab* PO 325 mg DAILY KEYA Administration Furosemide 40 mg 03/05/19 09:00 03/05/19 08:59 Lasix Tab* PO 40 mg DAILY KEYA Administration Magnesium Oxide 400 mg 03/04/19 10:00 03/05/19 08:59 Magox 400 Tab* PO 400 mg DAILY KEYA Administration Metoprolol Tartrate 50 mg 03/05/19 21:00 Lopressor Tab* PO Q12HR KEYA Nicotine 1 patch 02/24/19 08:00 03/05/19 08:59 Nicotine Patch 21 Mg/24 Hr* TRANSDERM 1 patch DAILY@0800 KEYA Administration Nft: Urea-C40 Cream 1 applic 02/24/19 09:00 03/05/19 09:00 40% 1 Applic TOPICAL Not Given DAILY KEYA Nystatin 1 applic 02/23/19 21:00 03/05/19 13:32 Nystatin Top Powder* TOPICAL 1 applic TID KEYA Administration Ondansetron HCl 4 mg 02/23/19 15:43 Zofran Inj* IV Q4H PRN NAUSEA/VOMITING Pantoprazole Sodium 40 mg 02/27/19 09:00 03/05/19 08:59 Protonix Tab* PO 40 mg DAILY KEYA Administration Pharmacy Profile Note 1 note 02/23/19 21:00 03/04/19 21:35 Nicotine Patch Removal Note* FOLLOW UP 1 note 2100 KEYA Administration Polyethylene Glycol/Electrolytes 17 gm 03/01/19 14:33 03/04/19 11:10 Miralax* PO 17 gm DAILY PRN Administration CONSTIPATION Senna 1 tab 02/23/19 15:43 02/28/19 10:33 Senokot 8.6 Mg Tab* PO 1 tab BID PRN Administration CONSTIPATION Tiotropium [place] 2 puff 02/24/19 09:00 03/05/19 08:21 Spiriva Respimat 2.5 Mcg INH 2 puff DAILY KEYA Administration Vital Signs Temp Pulse Resp BP Pulse Ox 98.3 F 109 21 103/62 94 03/05/19 11:15 03/05/19 11:15 03/05/19 11:15 03/05/19 11:15 03/05/19 11:15 O/E: Pt in NAD, lying in bed HEENT: PERRLA, No JVD Lungs: Diminished air entry at bases, improved. CVS: S1, S2+, irregular Abd: Soft, BS+ Ext: Normal ROM Neuro: No focal deficits Skin: No rash Laboratory Results - last 24 hr 03/04/19 03/05/19 03/05/19 16:48 04:39 07:24 Sodium 134 L Potassium 4.2 Chloride 92 L Carbon Dioxide 36 H Anion Gap 6 BUN 32 H Creatinine 1.15 H Est GFR ( Amer) 56.0 Est GFR (Non-Af Amer) 46.3 BUN/Creatinine Ratio 27.8 H Glucose 173 H POC Glucose (mg/dL) 112 H Calcium 8.7 Fluid Source Pleural fluid Fluid Volume 16 Fluid Color Yellow Fluid Appearance Clear Fluid WBC 223 Fluid RBC 1073 Fluid Tot Cell Count 100 Fluid Neutrophils 1 Fluid Lymphocytes 94 Fluid Reactive Lymphs 1 Fluid Monocytes 4 Fluid Cell Count Rvw By I/R: 73 y o f with significant smoking history with h/o COPD, hypoxic resp failure, A.fib a/w worsening SOB, being treated for acute CHF Pt was noted to have significant rt effusion which might be contributing to SOB , hypoxia Pt had thoracentesis with removal of 1L of pleural fluid on right side Fluid was light yellow in the beginning, pt c/o chest discomfort towards end of procedure and also had blood stained fluid drained towards the end. CXR negative for PTX Pt denies any pain currently Pt noted to have pleural nodularity when scanned with U/S Cytology negative for malignancy c/w current management for COPD Pt awaiting transfer to [facility] D/w Dr Polanco
[2019-03-05] MEDS: Acetaminophen TAB* 325 MG PO PRN (17:14)
[2019-03-05] MEDS ORDERED: Metoprolol Tartrate TAB* 25 MG PO ONE (20:56)
--- NOTE | 2019-03-05 21:11 | PN ---
Hospitalist Progress Note Date of Service: 03/05/19 Received page remotely regarding patient's metoprolol. RN reported HR 75, BP 105 /70 and new order of increased metoprolol dose to 50 mg. Was previously on 25 mg BID, received same dose this morning with HR in 100s and SBP 103. Telephone order given to continue metoprolol at 25 mg as patient is currently not tachycardic and only had transient jump to 100s. Nursing to call if concern for tachycardia returns; can consider additional 25 mg dose overnight if needed.
[2019-03-05] MEDS: Metoprolol Tartrate TAB* 50 mg PO SCH (22:10)
[2019-03-05] MEDS: Nicotine Patch Removal NOTE FOLLOW UP SCH (22:10)
--- NOTE | 2019-03-06 06:31 | PN ---
Subjective Date of Service: 03/06/19 Interval History: HD 12 on 03/06 73 y/o F with h/o COPD (2L of o2 at night), HFpEF, Chronic Afib (on atenolol, dilti and eliquis), HTN,DM and tobacco use presented with acute bilateral knee pain s/p fall found to have AF with RVR, hypoxic respiratory failure, Right Pleural Effusion with stay c/b hypotension and bradycardia. S/P thoracentesis Overnight- No acute overnight events Vitals-stable Patient denies CP, SOB and lightheadedness. Denies abdominal pain, nausea or vomiting Objective Active Medications: Acetaminophen (Tylenol Tab*) 650 mg PO Q4H PRN PRN Reason: MILD PAIN or TEMP > 100.4 Last Admin: 03/05/19 17:14 Dose: 650 mg Al Hydrox/Mg Hydrox/Simethicone (Maalox Plus*) 30 ml PO Q6H PRN PRN Reason: INDIGESTION Albuterol (Ventolin Hfa Inhaler*) 2 puff INH Q4H PRN PRN Reason: SHORTNESS OF BREATH Apixaban (Eliquis*) 5 mg PO BID [facility] Last Admin: 03/05/19 22:09 Dose: 5 mg Citalopram Hydrobromide (Celexa Tab*) 40 mg PO DAILY [facility] Last Admin: 03/05/19 08:59 Dose: 40 mg Cyanocobalamin (Vitamin B12 Tab*) 1,000 mcg PO DAILY [facility] Last Admin: 03/05/19 08:59 Dose: 1,000 mcg Ferrous Sulfate (Ferrous Sulfate Tab*) 325 mg PO DAILY [facility] Last Admin: 03/05/19 08:59 Dose: 325 mg Furosemide (Lasix Tab*) 40 mg PO DAILY [facility] Last Admin: 03/05/19 08:59 Dose: 40 mg Magnesium Oxide (Magox 400 Tab*) 400 mg PO DAILY [facility] Last Admin: 03/05/19 08:59 Dose: 400 mg Metoprolol Tartrate (Lopressor Tab*) 50 mg PO Q12HR [facility] Last Admin: 03/05/19 22:10 Dose: Not Given Nicotine (Nicotine Patch 21 Mg/24 Hr*) 1 patch TRANSDERM DAILY@0800 [facility] Last Admin: 03/05/19 08:59 Dose: 1 patch Nft: Urea-C40 Cream (40% 1 Applic) 1 applic TOPICAL DAILY [facility] Last Admin: 03/05/19 09:00 Dose: Not Given Nystatin (Nystatin Top Powder*) 1 applic TOPICAL TID [facility] Last Admin: 03/05/19 22:10 Dose: 1 applic Ondansetron HCl (Zofran Inj*) 4 mg IV Q4H PRN PRN Reason: NAUSEA/VOMITING Pantoprazole Sodium (Protonix Tab*) 40 mg PO DAILY [facility] Last Admin: 03/05/19 08:59 Dose: 40 mg Pharmacy Profile Note (Nicotine Patch Removal Note*) 1 note FOLLOW UP 2100 [facility] Last Admin: 03/05/19 22:10 Dose: 1 note Polyethylene Glycol/Electrolytes (Miralax*) 17 gm PO DAILY PRN PRN Reason: CONSTIPATION Last Admin: 03/04/19 11:10 Dose: 17 gm Senna (Senokot 8.6 Mg Tab*) 1 tab PO BID PRN PRN Reason: CONSTIPATION Last Admin: 02/28/19 10:33 Dose: 1 tab Tiotropium [place] (Spiriva Respimat 2.5 Mcg) 2 puff INH DAILY [facility] Last Admin: 03/05/19 08:21 Dose: 2 puff Vital Signs - 8 hr 03/05/19 03/06/19 23:16 03:26 Temperature 98.0 F 98.4 F Pulse Rate 84 95 Respiratory 16 18 Rate Blood Pressure 128/71 115/52 (mmHg) O2 Sat by Pulse 93 95 Oximetry Oxygen Devices in Use Now: Nasal Cannula Exam: Patient is lying on a bed with no acute distress HEENT- Normocephalic and atraumatic. Bruise resolved Lungs- decreased breath sound on right Heart: Irregular rhythm. S1/S2 heard; difficult to appreciate murmur Abdomen: Soft, nondistended and nontender. Normal BS heard Extremties: Multiple bruise on upper extremities. Bilateral pedal edema Neuro: Alert, oriented and coperative Result Diagrams: 02/27/19 04:23 03/05/19 04:39 Additional Lab and Data: Lab Results 02/23/19 02/23/19 02/23/19 Range/Units 12:52 12:52 13:35 WBC 8.2 (3.5-10.8) 10^3/uL RBC 4.44 (3.70-4.87) 10^6 /uL Hgb 13.8 (12.0-16.0) g/dL Hct 42 (35-47) % MCV 93 (80-97) fL MCH 31 (27-31) pg MCHC 33 (31-36) g/dL RDW 15 (10-15) % Plt Count 159 (150-450) 10^3/uL MPV 7.5 (7.4-10.4) fL Neut % (Auto) 87.5 % Lymph % (Auto) 4.5 % [place] % (Auto) 5.4 % Eos % (Auto) 1.4 % Baso % (Auto) 1.2 % Absolute Neuts (auto) 7.1 (1.5-7.7) 10^3/ul Absolute Lymphs (auto) 0.4 L (1.0-4.8) 10^3/ul Absolute Monos (auto) 0.4 (0-0.8) 10^3/ul Absolute Eos (auto) 0.1 (0-0.6) 10^3/ul Absolute Basos (auto) 0.1 (0-0.2) 10^3/ul Absolute Nucleated RBC 0.0 10^3/ul Nucleated RBC % 0.1 INR (Anticoag Therapy) (0.82-1.09) Sodium 134 L (135-145) mmol/L Potassium 4.4 (3.5-5.0) mmol/L Chloride 101 (101-111) mmol/L Carbon Dioxide 24 (22-32) mmol/L Anion Gap 9 (2-11) mmol/L BUN 26 H (6-24) mg/dL Creatinine 1.42 H (0.51-0.95) mg/dL Est GFR ( Amer) 43.9 (>60) Est GFR (Non-Af Amer) 36.3 (>60) BUN/Creatinine Ratio 18.3 (8-20) Glucose 131 H (70-100) mg/dL Lactic Acid 1.9 (0.5-2.0) mmol/L Calcium 9.2 (8.6-10.3) mg/dL Magnesium 0.9 L* (1.9-2.7) mg/dL Total Bilirubin 1.30 H (0.2-1.0) mg/dL AST 8 L (13-39) U/L ALT 4 L (7-52) U/L Alkaline Phosphatase 73 (34-104) U/L Troponin I 0.03 (<0.04) ng/mL Total Protein 6.7 (6.4-8.9) g/dL Albumin 3.7 (3.2-5.2) g/dL Globulin 3.0 (2-4) g/dL Albumin/Globulin Ratio 1.2 (1-3) 02/23/19 Range/Units 13:35 WBC (3.5-10.8) 10^3/uL RBC (3.70-4.87) 10^6 /uL Hgb (12.0-16.0) g/dL Hct (35-47) % MCV (80-97) fL MCH (27-31) pg MCHC (31-36) g/dL RDW (10-15) % Plt Count (150-450) 10^3/uL MPV (7.4-10.4) fL Neut % (Auto) % Lymph % (Auto) % [place] % (Auto) % Eos % (Auto) % Baso % (Auto) % Absolute Neuts (auto) (1.5-7.7) 10^3/ul Absolute Lymphs (auto) (1.0-4.8) 10^3/ul Absolute Monos (auto) (0-0.8) 10^3/ul Absolute Eos (auto) (0-0.6) 10^3/ul Absolute Basos (auto) (0-0.2) 10^3/ul Absolute Nucleated RBC 10^3/ul Nucleated RBC % INR (Anticoag Therapy) 1.71 H (0.82-1.09) Sodium (135-145) mmol/L Potassium (3.5-5.0) mmol/L Chloride (101-111) mmol/L Carbon Dioxide (22-32) mmol/L Anion Gap (2-11) mmol/L BUN (6-24) mg/dL Creatinine (0.51-0.95) mg/dL Est GFR ( Amer) (>60) Est GFR (Non-Af Amer) (>60) BUN/Creatinine Ratio (8-20) Glucose (70-100) mg/dL Lactic Acid (0.5-2.0) mmol/L Calcium (8.6-10.3) mg/dL Magnesium (1.9-2.7) mg/dL Total Bilirubin (0.2-1.0) mg/dL AST (13-39) U/L ALT (7-52) U/L Alkaline Phosphatase (34-104) U/L Troponin I (<0.04) ng/mL Total Protein (6.4-8.9) g/dL Albumin (3.2-5.2) g/dL Globulin (2-4) g/dL Albumin/Globulin Ratio (1-3) Microbiology and Other Data: Microbiology 02/24/19 15:59 Aerobic Blood Culture - Preliminary Blood Venous No Growth Day 4 Anaerobic Blood Culture - Preliminary No Growth Day 4 02/24/19 15:45 Aerobic Blood Culture - Preliminary Blood Venous No Growth Day 4 Anaerobic Blood Culture - Preliminary No Growth Day 4 02/23/19 14:35 Urine Culture - Final Urine Escherichia Coli 02/23/19 22:45 Nasal Screen MRSA (PCR) - Final Nasal Mrsa Not Detected Assess/Plan/Problems-Billing Assessment: 73 y/o F with h/o COPD (2L of o2 at night), HFpEF, Chronic Afib (on atenolol, dilti and eliquis), HTN,DM and tobacco use presented with acute bilateral knee pain s/p fall found to have AF with RVR, hypoxic respiratory failure, Right Pleural Effusion with stay c/b hypotension and bradycardia - Patient Problems (1) Hypoxia Current Visit: Yes Status: Acute Code(s): R09.02 - HYPOXEMIA SNOMED Code(s ): 336556980 Comment: - s/p thoracentesis -oxygen down to 2L denies any sx (2) Urinary retention Current Visit: No Status: Acute Code(s): R33.9 - RETENTION OF URINE, UNSPECIFIED SNOMED Code(s): 447087010 Comment: -jimenez in again; has reddish yellow urine-could be traumatic from jimenez -not mobilizing -encouraged fro ambulation -more likely functional -Continue PT (3) Knee pain Current Visit: Yes Status: Acute Code(s): M25.569 - PAIN IN UNSPECIFIED KNEE SNOMED Code(s): 81202642 Comment: -developed s/p fall -no fracture on xray -tylenol prn (4) Atrial fibrillation Current Visit: Yes Status: Acute Code(s): I48.91 - UNSPECIFIED ATRIAL FIBRILLATION SNOMED Code(s): 95726508 Comment: -RVR on admission now rate controlled -atenolol and diltiazem stopped after pt became sherrie with frequent pauses -tolerating metoprolol well; titrated to 25 mg BID -started eliquis (5) Pleural effusion Current Visit: Yes Status: Acute Code(s): J90 - PLEURAL EFFUSION, NOT ELSEWHERE CLASSIFIED SNOMED Code(s): 14838168 Comment: -has right sided pleural effusion with atlectasis -thoracentesis was done in september and was negative for any malignany -In September was transudative secondary to heart failure -on home dose of lasix thora yesterdy -cytology negative for malignancy (6) CHF (congestive heart failure) Current Visit: Yes Status: Acute Code(s): I50.9 - HEART FAILURE, UNSPECIFIED SNOMED Code(s): 36331092 Comment: -acute on chronic diastolic HF; improving -decompensation in setting of AF with RVR -echo done in 09/2018- EF of 60-65% with severe LA dilatation with moderate to severe calcification of mitral valve and mild dynamic obstruction of LV. -I and O daily -daily weight -on lasix; low K today; repleting (7) HTN (hypertension) Current Visit: Yes Status: Acute Code(s): I10 - ESSENTIAL (PRIMARY) HYPERTENSION SNOMED Code(s): 46549897 Comment: monitor on metoprolol (8) Lung nodule Current Visit: Yes Status: Acute Code(s): R91.1 - SOLITARY PULMONARY NODULE SNOMED Code(s): 927338974 Comment: -unchanged from previous scan in september -also has pleural effusion; negative for malignancy in september -waiting for pleural fluid results -follow up with repeat CT in 6 month and consult with pulmonology as an outpatient (9) DVT prophylaxis Current Visit: Yes Status: Acute Code(s): ZKW2530 - SNOMED Code(s): 961543982 Comment: -eliquis started Status and Disposition: Inpatient needs MONIKA on discharge; accepted by [facility], [place] waiting authorization Attending: Juanis Polanco Attestation Documenting Resident: Jimena Peralta Supervising Physician: Juanis Polanco Attending/Supervising Physician Comment: Agree with resident note, awaiting MONIKA acceptance on Friday, auth is approved. continue to titrate BB and furosemide to optimize a fib Attestation: This service has been performed in part by a resident under the direction of a teaching physician.I, Juanis Polanco, performed the service, or was physically present during the critical, or locke portions of the service, furnished by the resident. I participated in the management of the patient.
[2019-03-06] MEDS: SPIRIVA Respimat* (tiotropium) 2.5 mcg/inh Inhaler INH SCH (07:58)
[2019-03-06] MEDS: Metoprolol Tartrate TAB* 50 mg PO SCH (09:13)
[2019-03-06] MEDS: Nicotine PATCH 21 MG/24 HR* PATCH TRANSDERM SCH (09:22)
[2019-03-06] MEDS: Cyanocobalamin TAB* 500 MCG PO SCH (09:24)
[2019-03-06] MEDS: Acetaminophen TAB* 325 MG PO PRN ×3 (09:24→20:07)
[2019-03-06] MEDS: Magnesium Oxide TAB* 400 MG PO SCH (09:25)
[2019-03-06] MEDS: Apixaban* 5 MG TAB PO SCH ×2 (09:25→20:07)
[2019-03-06] MEDS: Citalopram TAB* 40 MG PO SCH (09:25)
[2019-03-06] MEDS: Pantoprazole TAB * 40 MG TAB PO SCH (09:25)
[2019-03-06] MEDS: Furosemide TAB* 40 MG PO SCH (09:26)
[2019-03-06] MEDS: Ferrous Sulfate TAB* 325 MG PO SCH (09:26)
[2019-03-06] MEDS: Polyethylene Glycol 3350* 17 GM PACKET PO PRN (09:26)
[2019-03-06] MEDS: Nystatin TOP POWDER* 15 GM BTL TOPICAL SCH ×3 (09:27→20:32)
[2019-03-06] MEDS: [UNRECOGNIZED DRUG - OTHER] TOPICAL SCH (09:32)
[2019-03-06] MEDS: UREA TOPICAL SCH (09:32)
[2019-03-06] MEDS ORDERED: Metoprolol Tartrate TAB* 25 MG PO SCH (11:00)
[2019-03-06 12:23] LABS: Lactate Dehydrogenase, BF 83 U/L
[2019-03-06 14:40] LABS: Fluid Type, Protein, Total PLEURAL
[2019-03-06] MEDS ORDERED: traMADol TAB* 50 MG PO PRN (16:45)
[2019-03-06] MEDS: Metoprolol Tartrate TAB* 25 MG PO SCH (20:08)
[2019-03-06] MEDS: Nicotine Patch Removal NOTE FOLLOW UP SCH (20:10)
[2019-03-07] MEDS: Acetaminophen TAB* 325 MG PO PRN ×2 (02:52→17:27)
--- NOTE | 2019-03-07 07:14 | PN ---
Subjective Date of Service: 03/07/19 Interval History: HD 13 on 03/07 73F PMH JASMINA on CPAP (non compliant), COPD on home 2L nocturnal O2, ongoing tob use, HFpEF (calcified mitral annulus mild-mod MS), Afib on AC, HTN, CVA and aneurysm s/p clipping without residual deficits who presented s/p mechanical fall found to have hypoxic respiratory failure 2/2 CHF exacerbation, recurrent R pleural effusion, initial hospital course c/b iatrogenic bradycardia and urinary retention, now s/p jimenez. Thoracentesis of 1.1L on 03/05 Overnight no acute events, VSS, fib rate controlled. I/O +400cc, weight slight up but stable This morning, no new complaints, not particularly engaging and refuses much discussion with provider, awaiting MONIKA plan for d/c tomorrow and will prep d/c today. NO BM in a few days, she is willing for suppository. Objective Active Medications: Acetaminophen (Tylenol Tab*) 650 mg PO Q4H PRN PRN Reason: MILD PAIN or TEMP > 100.4 Last Admin: 03/07/19 02:52 Dose: 650 mg Al Hydrox/Mg Hydrox/Simethicone (Maalox Plus*) 30 ml PO Q6H PRN PRN Reason: INDIGESTION Albuterol (Ventolin Hfa Inhaler*) 2 puff INH Q4H PRN PRN Reason: SHORTNESS OF BREATH Apixaban (Eliquis*) 5 mg PO BID [facility] Last Admin: 03/06/19 20:07 Dose: 5 mg Citalopram Hydrobromide (Celexa Tab*) 40 mg PO DAILY [facility] Last Admin: 03/06/19 09:25 Dose: 40 mg Cyanocobalamin (Vitamin B12 Tab*) 1,000 mcg PO DAILY [facility] Last Admin: 03/06/19 09:24 Dose: 1,000 mcg Ferrous Sulfate (Ferrous Sulfate Tab*) 325 mg PO DAILY [facility] Last Admin: 03/06/19 09:26 Dose: 325 mg Furosemide (Lasix Tab*) 40 mg PO Q48H [facility] Magnesium Oxide (Magox 400 Tab*) 400 mg PO DAILY [facility] Last Admin: 03/06/19 09:25 Dose: 400 mg Metoprolol Tartrate (Lopressor Tab*) 25 mg PO 0900,2100 [facility] Last Admin: 03/06/19 20:08 Dose: 25 mg Nicotine (Nicotine Patch 21 Mg/24 Hr*) 1 patch TRANSDERM DAILY@0800 [facility] Last Admin: 03/06/19 09:22 Dose: 1 patch Nystatin (Nystatin Top Powder*) 1 applic TOPICAL TID [facility] Last Admin: 03/06/19 20:32 Dose: 1 applic Ondansetron HCl (Zofran Inj*) 4 mg IV Q4H PRN PRN Reason: NAUSEA/VOMITING Pantoprazole Sodium (Protonix Tab*) 40 mg PO DAILY [facility] Last Admin: 03/06/19 09:25 Dose: 40 mg Pharmacy Profile Note (Nicotine Patch Removal Note*) 1 note FOLLOW UP 2100 [facility] Last Admin: 03/06/19 20:10 Dose: 1 note Polyethylene Glycol/Electrolytes (Miralax*) 17 gm PO DAILY PRN PRN Reason: CONSTIPATION Last Admin: 03/06/19 09:26 Dose: 17 gm Senna (Senokot 8.6 Mg Tab*) 1 tab PO BID PRN PRN Reason: CONSTIPATION Last Admin: 02/28/19 10:33 Dose: 1 tab Tiotropium [place] (Spiriva Respimat 2.5 Mcg) 2 puff INH DAILY [facility] Last Admin: 03/06/19 07:58 Dose: Not Given Tramadol HCl (Ultram*) 50 mg PO Q12H PRN PRN Reason: PAIN - MODERATE Last Admin: 03/06/19 17:14 Dose: 50 mg Vital Signs - 8 hr 03/06/19 03/07/19 23:17 02:50 Temperature 98.8 F 97.6 F Pulse Rate 90 74 Respiratory 24 24 Rate Blood Pressure 128/64 110/69 (mmHg) O2 Sat by Pulse 94 92 Oximetry Oxygen Devices in Use Now: Nasal Cannula Appearance: Chronically ill appearing woman in NAD Eyes: No Scleral Icterus, PERRLA Ears/Nose/Mouth/Throat: NL Teeth, Lips, Gums Neck: NL Appearance and Movements; NL JVP Respiratory: Symmetrical Chest Expansion and Respiratory Effort, - - Dimished to R lung base Cardiovascular: - - Irreg irreg Abdominal: NL Sounds; No Tenderness; No Distention, No Hepatosplenomegaly Lymphatic: No Cervical Adenopathy Extremities: - - 1+ pitting edema in blt LE Skin: No Rash or Ulcers Neurological: Alert and Oriented x 3, - - Minimally engaged Lines/Tubes/Other Access: Clean, Dry and Intact Jimenez Result Diagrams: 02/27/19 04:23 03/05/19 04:39 Additional Lab and Data: Microbiology and Other Data: Assess/Plan/Problems-Billing Assessment: 73F PMH JASMINA on CPAP (non compliant), COPD on home 2L nocturnal O2, ongoing tob use, HFpEF (calcified mitral annulus mild-mod MS), Afib on AC, HTN, CVA and aneurysm s/p clipping without residual deficits who presented s/p mechanical fall found to have hypoxic respiratory failure 2/2 CHF exacerbation, recurrent R pleural effusion, initial hospital course c/b iatrogenic bradycardia and urinary retention, now s/p jimenez. Thoracentesis of 1.1L on 03/05 - Patient Problems (1) Acute on chronic respiratory failure with hypoxia Current Visit: No Status: Acute Code(s): J96.21 - ACUTE AND CHRONIC RESPIRATORY FAILURE WITH HYPOXIA SNOMED Code(s): 25413541 Comment: -Secondary to diastolic CHF and pleural effusion. -S/p thoracentesis 03/05 O2 requirements from 4L to 2L, transudative -2L O2 around the clock, may be new baseline. (2) Atrial fibrillation Current Visit: Yes Status: Acute Code(s): I48.91 - UNSPECIFIED ATRIAL FIBRILLATION SNOMED Code(s): 76538291 Comment: -RVR on admission now rate controlled -Atenolol and Diltiazem stopped after pt became sherrie with frequent pauses -tolerating metoprolol well; titrated to 25 mg BID -On AC CHADS VASC >3 (3) JASMINA (obstructive sleep apnea) Current Visit: Yes Status: Acute Code(s): G47.33 - OBSTRUCTIVE SLEEP APNEA ( ADULT) (PEDIATRIC) SNOMED Code(s): 94708086 Comment: -Offer CPAP nightly (4) Urinary retention Current Visit: No Status: Acute Code(s): R33.9 - RETENTION OF URINE, UNSPECIFIED SNOMED Code(s): 555704174 Comment: -Pt has opted for jimenez on d/c after failed voiding trial x3 (5) Knee pain Current Visit: Yes Status: Acute Code(s): M25.569 - PAIN IN UNSPECIFIED KNEE SNOMED Code(s): 55908030 Comment: -No fracture -From mechanical fall, Tylenol PRN (6) Pleural effusion Current Visit: Yes Status: Acute Code(s): J90 - PLEURAL EFFUSION, NOT ELSEWHERE CLASSIFIED SNOMED Code(s): 57163268 Comment: -Recurrent transudative pleural effusion 2/2 to dCHF? -x2 Thora in 2019 with both transudative and neg cyto -Also with pleural nodules seen on CT scan which are stable, will need [address] (7) CHF (congestive heart failure) Current Visit: Yes Status: Acute Code(s): I50.9 - HEART FAILURE, UNSPECIFIED SNOMED Code(s): 41406322 Comment: -Currently euvolemic, on every other day Lasix, pressure not tolerating daily lasix -Echo done in 09/2018- EF of 60-65% with severe LA dilatation with moderate to severe calcification of mitral valve and mild dynamic obstruction of LV. (8) Lung nodule Current Visit: Yes Status: Acute Code(s): R91.1 - SOLITARY PULMONARY NODULE SNOMED Code(s): 522631844 Comment: -Unchanged from previous scan in september -follow up with repeat CT in 6 month and consult with pulmonology as an outpatient (9) [place] esophagus Current Visit: No Status: Acute Code(s): K22.70 - ESCAMILLA'S ESOPHAGUS WITHOUT DYSPLASIA SNOMED Code(s): 715807855 Comment: - Continue pantoprazole (10) COPD (chronic obstructive pulmonary disease) Current Visit: No Status: Acute Code(s): J44.9 - CHRONIC OBSTRUCTIVE PULMONARY DISEASE, UNSPECIFIED SNOMED Code(s): 79632847 Comment: -No evidence of exacerbation. Continue Dulera, Spiriva, nebs. -Encourage smoking cessation (11) Depression Current Visit: No Status: Acute Code(s): F32.9 - MAJOR DEPRESSIVE DISORDER, SINGLE EPISODE, UNSPECIFIED SNOMED Code(s): 09568124 Comment: - Continue citalopram (12) NEEDLE LOOM TENDER (ventriculoperitoneal) shunt status Current Visit: No Status: Acute Comment: -Prior cerebral aneurysm (13) DVT prophylaxis Current Visit: Yes Status: Acute Code(s): MCC4185 - SNOMED Code(s): 521587670 Comment: -Eliquis (14) Full code status Current Visit: Yes Status: Acute Code(s): Z78.9 - OTHER SPECIFIED HEALTH STATUS SNOMED Code(s): 586005061 Comment: -Mult attempts at GOC discussion and pt refuses Status and Disposition: D/C to [facility] [place] tomorrow, pt has bed and auth Lines: CASTILLO Jimenez, to go with barbara, needs BM today
[2019-03-07] MEDS: SPIRIVA Respimat* (tiotropium) 2.5 mcg/inh Inhaler INH SCH (07:34)
[2019-03-07] MEDS: Polyethylene Glycol 3350* 17 GM PACKET PO PRN (08:46)
[2019-03-07] MEDS: Nicotine PATCH 21 MG/24 HR* PATCH TRANSDERM SCH (08:46)
[2019-03-07] MEDS: Magnesium Oxide TAB* 400 MG PO SCH (08:47)
[2019-03-07] MEDS: Cyanocobalamin TAB* 500 MCG PO SCH (08:47)
[2019-03-07] MEDS: Apixaban* 5 MG TAB PO SCH ×2 (08:47→20:04)
[2019-03-07] MEDS: Metoprolol Tartrate TAB* 25 MG PO SCH ×2 (08:47→20:04)
[2019-03-07] MEDS: Pantoprazole TAB * 40 MG TAB PO SCH (08:48)
[2019-03-07] MEDS: Ferrous Sulfate TAB* 325 MG PO SCH (08:48)
[2019-03-07] MEDS: Nystatin TOP POWDER* 15 GM BTL TOPICAL SCH ×3 (08:48→20:04)
[2019-03-07] MEDS: Citalopram TAB* 40 MG PO SCH (08:48)
[2019-03-07] MEDS ORDERED: Bisacodyl SUPP* 10 MG SUPP PR ONE (09:23)
--- NOTE | 2019-03-07 18:48 | DS ---
DISCHARGE SUMMARY: ADDENDUM: DATE OF INITIAL DISCHARGE: 03/05/19 The patient was initially slated to be discharged on 03/06/19, although insurance authorization created delay in her ability to get authorization for her ultimate subacute rehab at [facility], and she remained in the hospital from 03/06/19 to 03/08/19, secondary to placement delays. There were no acute changes in her medications or management during this time, and the rest of the discharge summary including the medication list is unchanged. The discharge summary date of discharge remains correct on 03/08/19, although this addendum reflects the care given from 03/06/19 to 03/08/19. [id number]/[facility] #: [id number] DOREEN
[2019-03-07] MEDS: Nicotine Patch Removal NOTE FOLLOW UP SCH (20:05)
[2019-03-08] MEDS: Metoprolol Tartrate TAB* 25 MG PO SCH (08:20)
[2019-03-08] MEDS: Ferrous Sulfate TAB* 325 MG PO SCH (08:20)
[2019-03-08] MEDS: Citalopram TAB* 40 MG PO SCH (08:20)
[2019-03-08] MEDS: Magnesium Oxide TAB* 400 MG PO SCH (08:20)
[2019-03-08] MEDS: Cyanocobalamin TAB* 500 MCG PO SCH (08:20)
[2019-03-08] MEDS: Pantoprazole TAB * 40 MG TAB PO SCH (08:20)
[2019-03-08] MEDS: Apixaban* 5 MG TAB PO SCH (08:23)
[2019-03-08] MEDS: Nystatin TOP POWDER* 15 GM BTL TOPICAL SCH ×2 (08:24→13:00)
[2019-03-08] MEDS: Nicotine PATCH 21 MG/24 HR* PATCH TRANSDERM SCH (08:24)
[2019-03-08] MEDS: SPIRIVA Respimat* (tiotropium) 2.5 mcg/inh Inhaler INH SCH (08:44)
[2019-03-08] MEDS ORDERED: Furosemide TAB* 40 MG PO SCH (09:00)
[2019-03-08] MEDS: Acetaminophen TAB* 325 MG PO PRN (10:33)
[2019-03-08 11:54] VITALS: BP 100/66
--- NOTE | 2019-03-08 17:04 | PN ---
Subjective Date of Service: 03/08/19 Interval History: Patient has no new complaints. Ready for discharge. Had pleural effusion tapped 03/04. Family History: Unchanged from Admission Social History: Unchanged from Admission Past Medical History: Unchanged from Admission Objective Active Medications: Current Meds: Omeprazole CAP (NF) [Prilosec CAP* 20 MG] 20 mg PO BID 07/22/12 Alendronate (NF) [Fosamax (NF)] 70 mg PO WEEKLY 02/27/17 Cholestyramine Resin* [Questran*] 4 gm PO TID 09/18/18 Umeclidinium 62.5 MDI(NF) [Incruse ELLIPTA MDI (NF)] 1 puff INH DAILY Albuterol inh POWDER (NF) [Proair Respiclick] 2 puff INH Q4H PRN 02/23/19 Apixaban* [Eliquis*] 5 mg PO BID 02/23/19 Citalopram TAB* [Celexa TAB*] 40 mg PO DAILY 02/23/19 Cyanocobalamin TAB* [Vitamin B12 TAB*] 1,000 mcg PO DAILY 02/23/19 Ferrous Sulfate TAB* 325 mg PO DAILY 02/23/19 Montelukast Sodium TAB* [Singulair 10 MG TAB*] 10 mg PO DAILY 02/23/19 Silver Sulfadiazine [Silvadene] 1 applic TOPICAL DAILY 02/23/19 Urea-C40 Cream 40% 1 applic TOPICAL DAILY 02/23/19 Acetaminophen TAB* [Tylenol TAB*] 650 mg PO Q4H PRN tab 03/05/19 Al Hydrox/Mg Hydrox/Simet LIQ* [Maalox Plus*] 30 ml PO Q6H PRN udc 03/05/19 Furosemide TAB* [Lasix TAB*] 40 mg PO DAILY tab 03/05/19 Magnesium Oxide TAB* [MagOx 400 TAB*] 400 mg PO DAILY tab 03/05/19 Metoprolol Tartrate TAB* [Lopressor TAB*] 50 mg PO Q12HR tab 03/05/19 Nicotine PATCH 21 MG/24 HR* 1 patch TRANSDERM DAILY@0800 patch 03/05/19 Nystatin TOP POWDER* 1 applic TOPICAL TID btl 03/05/19 Vital Signs - 8 hr 03/08/19 11:15 Temperature 36.6 C Pulse Rate 118 Respiratory 20 Rate Blood Pressure 100/66 (mmHg) O2 Sat by Pulse 94 Oximetry Oxygen Devices in Use Now: Nasal Cannula Appearance: alert, no distress Eyes: No Scleral Icterus Ears/Nose/Mouth/Throat: Clear Oropharnyx Neck: NL Appearance and Movements; NL JVP Respiratory: Symmetrical Chest Expansion and Respiratory Effort, - - Dull RT base Cardiovascular: NL Sounds; No Murmurs; No JVD Lines/Tubes/Other Access: Clean, Dry and Intact Peripheral IV Nutrition: Taking PO's Result Diagrams: 02/27/19 04:23 03/05/19 04:39 Assess/Plan/Problems-Billing Assessment: 73F PMH JASMINA on CPAP (non compliant), COPD on home 2L nocturnal O2, ongoing tob use, HFpEF (calcified mitral annulus mild-mod MS), Afib on AC, HTN, CVA and aneurysm s/p clipping without residual deficits who presented s/p mechanical fall found to have hypoxic respiratory failure 2/2 CHF exacerbation, recurrent R pleural effusion, initial hospital course c/b iatrogenic bradycardia and urinary retention, now s/p jimenez. Thoracentesis of 1.1L on 03/05 - Patient Problems (1) Acute on chronic respiratory failure with hypoxia Status: Acute Priority: Medium Code(s): J96.21 - ACUTE AND CHRONIC RESPIRATORY FAILURE WITH HYPOXIA SNOMED Code(s): 99708765 Comment: -Secondary to diastolic CHF and pleural effusion. -S/p thoracentesis 03/05 O2 requirements from 4L to 2L, transudative -2L O2 day and night; new baseline. (2) Atrial fibrillation Status: Acute Priority: Medium Code(s): I48.91 - UNSPECIFIED ATRIAL FIBRILLATION SNOMED Code(s): 25164081 Comment: -RVR on admission now rate controlled -Atenolol and Diltiazem stopped after pt became sherrie with frequent pauses -tolerating metoprolol well; titrated to 25 mg BID -anticoagulated w/ Eliquis (3) Urinary retention Status: Acute Priority: Medium Code(s): R33.9 - RETENTION OF URINE, UNSPECIFIED SNOMED Code(s): 353724450 Comment: -Pt has opted for jimenez on d/c after failed voiding trial x3 - May improve w/ rehab/mobility, should have another voiding trial at [facility] Status and Disposition: D/C to [facility] today
== END 2019-03-08 14:40 | DRG 291 ==
LOC: ED 12:23 → MEDTELE 15:43 → OBSVTOIN 02-24 11:00
PROVIDERS: ADMIT Internal Medicine; ATTEND Internal Medicine
PROC: 0W993ZZ Drainage of Right Pleural Cavity, Percutaneous Approach (ICD-10-PCS; principal; 2019-03-04)
DX: I11.0 Hypertensive heart disease with heart failure (principal); J96.91 Respiratory failure, unspecified with hypoxia; I48.20 Chronic atrial fibrillation, unspecified; B37.49 Other urogenital candidiasis; J90 Pleural effusion, not elsewhere classified; N39.0 Urinary tract infection, site not specified; J44.9 Chronic obstructive pulmonary disease, unspecified; S00.83XA Contusion of other part of head, initial encounter; W19.XXXA Unspecified fall, initial encounter; E78.00 Pure hypercholesterolemia, unspecified; K21.9 Gastro-esophageal reflux disease without esophagitis; K22.70 Barrett's esophagus without dysplasia; H91.90 Unspecified hearing loss, unspecified ear; E78.5 Hyperlipidemia, unspecified; F32.9 Major depressive disorder, single episode, unspecified; I50.33 Acute on chronic diastolic (congestive) heart failure; I27.20 Pulmonary hypertension, unspecified; G47.33 Obstructive sleep apnea (adult) (pediatric); E66.9 Obesity, unspecified; M17.0 Bilateral primary osteoarthritis of knee; E83.42 Hypomagnesemia; E11.51 Type 2 diabetes mellitus with diabetic peripheral angiopathy without gangrene; M25.562 Pain in left knee; M25.561 Pain in right knee; R33.9 Retention of urine, unspecified; F17.200 Nicotine dependence, unspecified, uncomplicated; R91.1 Solitary pulmonary nodule; M62.838 Other muscle spasm; R00.1 Bradycardia, unspecified; I95.9 Hypotension, unspecified; Z86.718 Personal history of other venous thrombosis and embolism; Y92.009 Unspecified place in unspecified non-institutional (private) residence as the place of occurrence of the external cause; Z98.42 Cataract extraction status, left eye; Z98.41 Cataract extraction status, right eye; Z68.34 Body mass index [BMI] 34.0-34.9, adult; Z91.018 Allergy to other foods; Z87.442 Personal history of urinary calculi; Z97.4 Presence of external hearing-aid; Z99.81 Dependence on supplemental oxygen; Z79.01 Long term (current) use of anticoagulants; Z79.899 Other long term (current) drug therapy
CPT/HCPCS: 36415; 36600; 70450; 71045; 71046; 71250; 76604; 80048; 80053; 81003; 81015; 82803; 83036; 83605; 83615; 83735; 83880; 84157; 84443; 84484; 85025; 85610; 87040; 87070; 87077; 87086; 87186; 87205; 87641; 88112; 89051; 93005; 94640; 94660; 96365; 96366; 99285; A9270-GY; G8978-GP-CK; G8979-GP-CI; J0696; J1940; J2543; J3475; J3535

== ENCOUNTER 2019-03-09 09:22 | Observation (INO) | payer MEDICARE ==
--- NOTE | 2019-03-09 09:40 | ED ---
Shortness of Breath - HPI Summary HPI Summary: This patient is a 73 year old F with a history of atrial fibrillation and COPD BIBA via EMS to ED with a chief complaint of unresponsiveness and difficulty breathing since [employer]. Patient was found unresponsive by [facility] staff with O2 in the 60s. Patient arrives to the ED fully alert and oriented on 2.5L O2. Patient reports she has had fluid in her lungs twice before and had it drained twice. The patient rates the pain 0/10 in severity. Symptoms aggravated by nothing. Symptoms alleviated by nothing. Patient reports cough, leg spasms. Patient denies fevers, swelling in the legs. She still smokes half-a-pack of cigarettes a day. Medications reviewed. Allergies noted. - History of Current Complaint Chief Complaint: EDGeneral Time Seen by Provider: 03/09/19 09:31 Hx Obtained From: Patient Onset/Duration: Still Present Timing: Constant Current Severity: Mild Dyspnea At: Rest Aggravating Factors: Nothing Alleviating Factors: Oxygen Associated Signs & Symptoms: Negative - Fevers, edema, Cough (Nonproductive) - Allergy/Home Medications Allergies/Adverse Reactions: Allergies Allergy/AdvReac Type Severity Reaction Status Date / Time tomato Allergy Swelling Verified 09/18/18 13:29 Of Face,Lips,& Throat PMH/Surg Hx/FS Hx/Imm Hx Endocrine/Hematology History: Reports: Hx Diabetes Denies: Hx Anticoagulant Therapy, Hx Thyroid Disease, Hx Anemia, Hx Unexplained Bleeding Cardiovascular History: Reports: Hx Aneurysm - CEREBRAL ANEURYSM WITH CLIP, Hx Angina, Hx Congestive Heart Failure, Hx Deep Vein Thrombosis, Hx Hypercholesterolemia - HLD, Hx Hypertension, Other Cardiovascular Problems/ Disorders - murmur Denies: Hx Angioplasty, Hx Auto Implanted Cardiovert Defib, Hx Cardiac Arrest , Hx Cardiomegaly, Hx Coronary Artery Disease, Hx Hypotension, Hx Pacemaker/ICD , Hx Peripheral Vascular Disease, Hx Rheumatic Fever, Hx Valvular Heart Disease Respiratory History: Reports: Hx Chronic Obstructive Pulmonary Disease (COPD), Hx Pneumonia, Other Respiratory Problems/Disorders - HX INTUBATION 2013 W/FLU A Denies: Hx Asthma, Hx Chronic Bronchitis, Hx Pleural Effusion, Hx Pulmonary Edema, Hx Pulmonary Embolism, Hx Seasonal Allergies, Hx Sleep Apnea GI History: Reports: Hx Gall Bladder Disease, Hx Gastroesophageal Reflux Disease - TAKES OMEPRAZOLE, Hx Ulcer - GI, Other GI Disorders - BARRETTS ESOPHAGUS Denies: Hx Cirrhosis, Hx Diverticulosis, Hx Gastrointestinal Bleed, Hx Irritable Bowel History: Reports: Hx Kidney Stones - 2 WEEKS AGO, Hx Renal Disease - URINARY SEPSIS, Other Problems/Disorders - RENAL INSUFF Denies: Hx Dialysis Musculoskeletal History: Reports: Hx Arthritis, Hx Back Problems, Hx Bursitis, Other Musculoskeletal History - hernia Sensory History: Reports: Hx Cataracts, Hx Contacts or Glasses Denies: Hx Hearing Aid Opthamlomology History: Reports: Hx Cataracts, Hx Contacts or Glasses Neurological History: Reports: Hx Seizures, Other Neuro Impairments/Disorders - CEREBRAL ANEURYSM, 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 LUMBAR LAMINECTOMY. CHOLECYSTECTOMY. CEREBRAL ANEURYSM CLIPPING 2002- CLEARED ON PREV MRI IN 2011, OP REPORT SCANNED INTO PACS. MULTIPLE TOE SURGERIES. PICC LINE 2013. HYSTERECTOMY Hx Anesthesia Reactions: No - Immunization History Date of Tetanus Vaccine: Unknown Date of Influenza Vaccine: Unk Infectious Disease History: No Infectious Disease History: Reports: Hx of Known/Suspected MRSA - dx in 2017, nares Denies: Hx Hepatitis, Hx Human Immunodeficiency Virus (HIV), Hx Shingles, Hx Tuberculosis, Traveled Outside the [place] in Last 30 Days - Family History Known Family History: Positive: Cardiac Disease - CAD, Other - neg: Breast CA - Social History Alcohol Use: Rare Alcohol Amount: "at [place]" Hx Substance Use: No Substance Use Type: Reports: None Hx Tobacco Use: Yes Smoking Status (MU): Heavy Every Day Tobacco Smoker Type: Cigarettes Amount Used/How Often: 1ppd Length of Time of Smoking/Using Tobacco: 40years Have You Smoked in the Last Year: Yes Review of Systems Negative: Fever Positive: Shortness Of Breath, Cough Musculoskeletal: Other - Leg spasms Negative: Edema All Other Systems Reviewed And Are Negative: Yes Physical Exam - Summary Physical Exam Summary: Constitutional: Well-developed, Well-nourished, Alert. (-) Distressed Skin: Warm, Dry HENT: Normocephalic; Atraumatic Eyes: Conjunctiva normal Neck: Musculoskeletal ROM normal neck. (-) JVD, (-) Stridor, (-) Tracheal deviation Cardio: Tachycardic 110-130s, O2 saturation 90% on 2.5L Pulmonary/Chest wall: Crackles at the bilateral bases. Abd: Soft, (-) tenderness, (-) Distension, (-) Guarding, (-) Rebound Musculoskeletal: (-) Edema Lymph: (-) Cervical adenopathy Neuro: Alert, Oriented x3 Psych: Mood and affect Normal Triage Information Reviewed: Yes Vital Signs On Initial Exam: Initial Vitals Temp Pulse Resp BP Pulse Ox 96.0 F 98 16 110/89 90 03/09/19 09:26 03/09/19 09:26 03/09/19 09:26 03/09/19 09:26 03/09/19 09:26 Vital Signs Reviewed: Yes Procedures - Sedation Patient Received Moderate/Deep Sedation with Procedure: No Diagnostics - Vital Signs Vital Signs Temp Pulse Resp BP Pulse Ox 03/09/19 09:26 96.0 F 98 16 110/89 90 - Laboratory Result Diagrams: 03/09/19 10:21 03/09/19 10:21 Lab Statement: Any lab studies that have been ordered have been reviewed, and results considered in the medical decision making process. - CT Chest/thorax CTA CT Interpretation Completed By: Radiologist Summary of CT Findings: No evidence of pulmonary embolus. Right pleural effusion. No evidence of aortic dissection is noted. Nodule is noted in the anterior right upper lobe. No pericardial effusion is noted. Dr. Hu has reviewed this radiology report. - EKG 0950 Cardiac Rate: NL - 119 EKG Rhythm: Atrial Flutter Summary of EKG Findings: Atrial flutter at 119 BPM. Re-Evaluation - Re-Evaluation First Eval Re-Evaluation Time: 12:31 Comment: Discussed results with patient. Patient will be admitted to [facility] with dx of hypoxemia, shortness of breath, and fluid overload. Patient understands and agrees with this plan. Course/Dx - Course Course Of Treatment: Patient is here with shortness of breath and hypoxemia. Patient was recently discharged after being admitted for multiple reasons. Patient was unconscious at the intermediate but was alert and oriented here. Patient had blood performed which showed an elevated d-dimer. Patient had assessment CTA which showed no evidence of PE but had reacumullation of her right pleural effusion. Given patient's worsening hypoxemia and oxygen requirement, patient was admitted to the hospital for further management - Diagnoses Provider Diagnoses: Hypoxemia, Shortness of breath, Fluid overload - Physician Notifications Discussed Care of Patient With: Shawn Obrien Time Discussed With Above Provider: 12:42 Instructed by Provider To: Admit As Inpatient - Discussed patient case with Dr. Obrien, hospitalist, who accepted the patient for admission to [facility]. - Critical Care Time Critical Care Time: 30-74 min - 30 minutes Discharge ED - Sign-Out/Discharge Documenting (check all that apply): Patient Departure - Admit - Discharge Plan Condition: Stable Disposition: ADMITTED TO [facility] - Billing Disposition and Condition Condition: STABLE Disposition: Admitted to [facility] - Attestation Statements Document Initiated by Roberte: Yes Documenting Scribe: Jonathan Perea Provider For Whom Dean is Documenting (Include Credential): Stewart uH MD Scribe Attestation: Jonathan uQiroz, scribed for Stewart Hu MD on 03/09/19 at 1519. Scribe Documentation Reviewed: Yes Provider Attestation: The documentation as recorded by the Jonathan de oliveira accurately reflects the service I personally performed and the decisions made by me, Stewart Hu MD Status of Scribe Document: Viewed
--- OUTSIDE RECORDS SUMMARY | 2019-03-09 09:54 | XMS REPORT ---
:1945 Author Organization [facility] Care Team Providers Name Role Phone Unavailable Unavailable Unavailable Problems This patient has no known problems. Allergies, Adverse Reactions, Alerts Allergy Allergy Status Severity Reaction(s) Onset Inactive Treating Comments Name Type Date Date Clinician tomato Unknown Active Unknown Reaction 2019-02 Interface Medications Ordered Filled Start Stop Current Ordering Indication Dosage Frequency Signature Comments Components Medication Medication Date Date Medication? Clinician (SIG) Name Name omeprazole omeprazole No Unknown Unknown Unknown 20 mg 20 mg 4- capsule,del capsule,del ayed ayed release release alendronate alendronate 2016-04 No Unknown Unknown Unknown 70 mg 70 mg 1-09 tablet tablet furosemide furosemide No Unknown Unknown Unknown 20 mg 20 mg - tablet tablet traMADol 50 traMADol 50 No Unknown Unknown Unknown mg tablet mg tablet 09-18 cholestyram cholestyram No Unknown Unknown Unknown ine (with ine (with 09-18 sugar) oral sugar) oral powder powder Umeclidiniu Umeclidiniu No Unknown Unknown Unknown m 62.5 m 62.5 5-31 Mdi(Nf) Mdi(Nf) atenolol 25 atenolol 25 2018-04 Yes Unknown Unknown Unknown mg tablet mg tablet - montelukast montelukast 2018-04 Yes Unknown Unknown Unknown 10 mg 10 mg 1-05 tablet tablet citalopram citalopram 2018-04 Yes Unknown Unknown Unknown 20 mg 20 mg 1-05 tablet tablet Silver Silver 2018-04 Yes Unknown Unknown Unknown Sulfadiazin Sulfadiazin -05 e e ferrous ferrous 2018-04 Yes Unknown Unknown Unknown sulfate 325 sulfate 325 1-05 mg (65 mg mg (65 mg iron) iron) tablet tablet metOLazone metOLazone 2018-04 Yes Unknown Unknown Unknown 5 mg tablet 5 mg tablet -05 cyanocobala cyanocobala 2018-04 Yes Unknown Unknown Unknown min (vit min (vit 1-05 B-12) 500 B-12) 500 mcg tablet mcg tablet Diltiazem Diltiazem 2018-04 Yes Unknown Unknown Unknown Hcl Hcl 04-25 losartan losartan 2018-04 Yes Unknown Unknown Unknown 100 mg 100 mg 04-25 tablet tablet Apixaban* Apixaban* 2018-04 Yes Unknown Unknown Unknown 04-25 Albuterol Albuterol 2018-04 Yes Unknown Unknown Unknown Inh Powder Inh Powder 04-25 (Nf) (Nf) Urea-C40 Urea-C40 2018-04 Yes Unknown Unknown Unknown Cream 40% Cream 40% 04-25 Vital Signs Vital Name Observation Time Observation Value Comments SYSTOLIC mm[Hg] 2019-02-26 18:08:45 129 mm[Hg] mm[Hg] Method: Sit DIASTOLIC mm[Hg] 2019-02-26 18:08:45 69 mm[Hg] mm[Hg] Method: Sit PULSE 2019-02-26 18:08:45 73 /min /min RESP RATE 2019-02-26 18:08:45 14 /min /min TEMP 2019-02-26 18:08:45 96.8 [degF] Procedures This patient has no known procedures. Results Test Description Test Time Test Comments Text Results Atomic Results Result Comments Whole blood glucose 2019-02-26 08:11:00 Identifier 2339-0 Result Unknown measurement (mass/volume) Time 2019-02-26 08:11:00 Test Item Value Reference Range Comments Whole blood glucose measurement (mass/volume) (test code 137 mg/dL Unknown Unknown F = 2339-0) Ordering Physician UnknownSerum or plasma calcium measurement (mass/volume)02-26 03:54:00Identifier 19008-6 Result Time 2019-02-26 03:54:00Unknown Test Item Value Reference Range Comments Serum or plasma calcium measurement 8.5 mg/dL Unknown Unknown F (mass/volume) (test code = 57527-1) Ordering Physician UnknownSerum or plasma carbon dioxide, total measurement ( moles/volume)2019-02-26 03:54:00Identifier 8- Result Time 2019-02-26 03:54: 00Unknown Test Item Value Reference Range Comments Serum or plasma carbon dioxide, total 25 mmol/L Unknown Unknown F measurement (moles/volume) (test code = 2027-) Ordering Physician UnknownSerum or plasma chloride measurement (moles/volume) 2019-02-26 03:54:00Identifier 2075-0 Result Time 2019-02-26 03:54:00Unknown Test Item Value Reference Range Comments Serum or plasma chloride measurement 106 mmol/L Unknown Unknown F (moles/volume) (test code = 2075-0) Ordering Physician UnknownSerum or plasma creatinine measurement (mass/volume) 2019-02-26 03:54:00Identifier 2160-0 Result Time 2019-02-26 03:54:00Unknown Test Item Value Reference Range Comments Serum or plasma creatinine measurement 1.45 mg/dL Unknown Unknown F (mass/volume) (test code = 2160-0) Ordering Physician UnknownSerum glucose measurement (mass/volume)2019-02-26 03: 54:00Identifier 2345-7 Result Time 2019-02-26 03:54:00Unknown Test Item Value Reference Range Comments Serum glucose measurement (mass/volume) 129 mg/dL Unknown Unknown F (test code = 2345-7) Ordering Physician UnknownSerum or plasma potassium measurement (moles/volume) 2019-02-26 03:54:00Identifier 2823-3 Result Time 2019-02-26 03:54:00Unknown Test Item Value Reference Range Comments Serum or plasma potassium measurement 4.2 mmol/L Unknown Unknown F (moles/volume) (test code = 2823-3) Ordering Physician UnknownSerum or plasma sodium measurement (moles/volume)02-26 03:54:00Identifier 2951-2 Result Time 2019-02-26 03:54:00Unknown Test Item Value Reference Range Comments Serum or plasma sodium measurement 137 mmol/L Unknown Unknown F (moles/volume) (test code = 2951-2) Ordering Physician UnknownSerum or plasma urea nitrogen measurement (mass/volume )2019-02-26 03:54:00Identifier 3094-0 Result Time 2019-02-26 03:54:00Unknown Test Item Value Reference Range Comments Serum or plasma urea nitrogen measurement 36 mg/dL Unknown Unknown F (mass/volume) (test code = 3094-0) Ordering Physician UnknownSerum or plasma urea nitrogen/creatinine xmlwo2125-57- 08 03:54:00Identifier 3097-3 Result Time 2019-02-26 03:54:00Unknown Test Item Value Reference Range Comments Serum or plasma urea nitrogen/creatinine 24.8 Unknown Unknown F ratio (test code = 3097-3) Ordering Physician UnknownAutomated blood platelet mean volume cwrohikkuzq2605- 11-08 03:54:00Identifier 88648-1 Result Time 2019-02-26 03:54:00Unknown Test Item Value Reference Range Comments Automated blood platelet mean volume 7.6 fL Unknown Unknown F measurement (test code = 16682-1) Ordering Physician UnknownSerum or plasma anion [id number] 03:54: 00Identifier 54513-6 Result Time 2019-02-26 03:54:00Unknown Test Item Value Reference Range Comments Serum or plasma anion gap (test code = 6 mmol/L Unknown Unknown F 90234-7) Ordering Physician UnknownAutomated blood leukocytes count corrected for nucleated erythrocytes (number/volume)2019-02-26 03:54:00Identifier 06116-3 Result Time 2019-02-26 03:54:00Unknown Test Item Value Reference Range Comments Automated blood leukocytes count 5.1 10^3/uL Unknown Unknown F corrected for nucleated erythrocytes (number/volume) (test code = 56538-6) Ordering Physician UnknownAutomated blood nucleated erythrocytes xbmgynjge1852- 11-08 03:54:00Identifier 38807-8 Result Time 2019-02-26 03:54:00Unknown Test Item Value Reference Range Comments Automated blood nucleated erythrocytes 0.0 Unknown Unknown F detection (test code = 08370-9) Ordering Physician UnknownAutomated blood hematocrit (percentage)2019-02-26 03: 54:00Identifier 4544-3 Result Time 2019-02-26 03:54:00Unknown Test Item Value Reference Range Comments Automated blood hematocrit (percentage) (test 35 % Unknown Unknown F code = 4544-3) Ordering Physician UnknownEstimated glomerular filtration rate (GFR) non- Mjrtqnzv2938-18-83 03:54:00Identifier 89974-4 Result Time 2019-02-26 03: 54:00Unknown Test Item Value Reference Range Comments Estimated glomerular filtration rate (GFR) 35.4 Unknown Unknown F non- (test code = 64451-0) Ordering Physician UnknownAutomated blood monocytes/100 fajeggqeix4044-06-41 03: 54:00Identifier 5905-5 Result Time 2019-02-26 03:54:00Unknown Test Item Value Reference Range Comments Automated blood monocytes/100 leukocytes 9.0 % Unknown Unknown F (test code = 5905-5) Ordering Physician UnknownAutomated blood basophil count (number/volume) 03:54:00Identifier 704-7 Result Time 2019-02-26 03:54:00Unknown Test Item Value Reference Range Comments Automated blood basophil count 0.0 10^3/ul Unknown Unknown F (number/volume) (test code = 704-7) Ordering Physician UnknownAutomated blood basophils/100 xursnzmmmy0481-27-97 03: 54:00Identifier 706-2 Result Time 2019-02-26 03:54:00Unknown Test Item Value Reference Range Comments Automated blood basophils/100 leukocytes 1.0 % Unknown Unknown F (test code = 706-2) Ordering Physician UnknownAutomated blood eosinophil count (number/volume)02-26 03:54:00Identifier 711-2 Result Time 2019-02-26 03:54:00Unknown Test Item Value Reference Range Comments Automated blood eosinophil count 0.2 10^3/ul Unknown Unknown F (number/volume) (test code = 711-2) Ordering Physician UnknownAutomated blood eosinophils/100 peuhzyxssi3824-86-86 03:54:00Identifier 713-8 Result Time 2019-02-26 03:54:00Unknown Test Item Value Reference Range Comments Automated blood eosinophils/100 leukocytes 3.6 % Unknown Unknown F (test code = 713-8) Ordering Physician UnknownBlood hemoglobin measurement (mass/volume)2019-02-26 03:54:00Identifier 718-7 Result Time 2019-02-26 03:54:00Unknown Test Item Value Reference Range Comments Blood hemoglobin measurement 11.8 g/dL Unknown Unknown F (mass/volume) (test code = 718-7) Ordering Physician UnknownBlood lymphocytes automated count (number/volume)02-26 03:54:00Identifier 731-0 Result Time 2019-02-26 03:54:00Unknown Test Item Value Reference Range Comments Blood lymphocytes automated count 0.3 10^3/ul Unknown Unknown F (number/volume) (test code = 731-0) Ordering Physician UnknownAutomated blood lymphocytes/100 jatxgiqtwa6775-05-02 03:54:00Identifier 736-9 Result Time 2019-02-26 03:54:00Unknown Test Item Value Reference Range Comments Automated blood lymphocytes/100 leukocytes 6.5 % Unknown Unknown F (test code = 736-9) Ordering Physician UnknownBlood monocytes automated count (number/volume)2019-02 03:54:00Identifier 742-7 Result Time 2019-02-26 03:54:00Unknown Test Item Value Reference Range Comments Blood monocytes automated count 0.5 10^3/ul Unknown Unknown F (number/volume) (test code = 742-7) Ordering Physician UnknownAutomated blood neutrophils/100 sgalolqvat3199-13-14 03:54:00Identifier 770-8 Result Time 2019-02-26 03:54:00Unknown Test Item Value Reference Range Comments Automated blood neutrophils/100 leukocytes 79.9 % Unknown Unknown F (test code = 770-8) Ordering Physician UnknownBlood nucleated erythrocytes automated count (number/ volume)2019-02-26 03:54:00Identifier 771-6 Result Time 2019-02-26 03:54: 00Unknown Test Item Value Reference Range Comments Blood nucleated erythrocytes automated 0.0 10^3/ul Unknown Unknown F count (number/volume) (test code = 771-6) Ordering Physician UnknownAutomated blood platelet count (number/volume) 03:54:00Identifier 777-3 Result Time 2019-02-26 03:54:00Unknown Test Item Value Reference Range Comments Automated blood platelet count 157 10^3/uL Unknown Unknown F (number/volume) (test code = 777-3) Ordering Physician UnknownAutomated erythrocyte mean corpuscular hemoglobin ( mass per erythrocyte)2019-02-26 03:54:00Identifier 785-6 Result Time 2019-02-26 03:54:00Unknown Test Item Value Reference Range Comments Automated erythrocyte mean corpuscular 31 pg Unknown Unknown F hemoglobin (mass per erythrocyte) (test code = 785-6) Ordering Physician UnknownAutomated erythrocyte mean corpuscular hemoglobin concentration measurement (mass/orx4306-16-96 03:54:00Identifier 786-4 Result Time 2019-02-26 03:54:00Unknown Test Item Value Reference Range Comments Automated erythrocyte mean corpuscular 33 g/dL Unknown Unknown F hemoglobin concentration measurement (mass/vol (test code = 786-4) Ordering Physician UnknownAutomated erythrocyte mean corpuscular qrhliy9752-86- 08 03:54:00Identifier 787-2 Result Time 2019-02-26 03:54:00Unknown Test Item Value Reference Range Comments Automated erythrocyte mean corpuscular volume 94 fL Unknown Unknown F (test code = 787-2) Ordering Physician UnknownAutomated erythrocyte distribution width pqhuh8838-20- 08 03:54:00Identifier 788-0 Result Time 2019-02-26 03:54:00Unknown Test Item Value Reference Range Comments Automated erythrocyte distribution width ratio 16 % Unknown Unknown F (test code = 788-0) Ordering Physician UnknownAutomated blood erythrocyte count (number/volume)02-26 03:54:00Identifier 789-8 Result Time 2019-02-26 03:54:00Unknown Test Item Value Reference Range Comments Automated blood erythrocyte count 3.76 10^6 /uL Unknown Unknown F (number/volume) (test code = 789-8) Ordering Physician UnknownCT biopsy jlrzf8688-34-26 03:54:00Identifier [id number] Result Time 2019-02-26 03:54:00Unknown Test Item Value Reference Range Comments CT biopsy liver (test code = RZC0607) 4.1 10^3/ul Unknown Unknown F Ordering Physician UnknownArterial blood base excess obqdnucefbx5655-75-87 04:46 :00Identifier 1925-7 Result Time 2019-02-25 04:46:00Unknown Test Item Value Reference Range Comments Arterial blood base excess measurement -2.7 mmol/L Unknown Unknown F (test code = 1925-7) Ordering Physician UnknownArterial blood partial pressure of oxygen with temperature pjeyylsmbq6018-22-79 04:46:00Identifier 79666-3 Result Time 04:46:00Unknown Test Item Value Reference Range Comments Arterial blood partial pressure of Not Reportable Unknown Unknown F oxygen with temperature correction (test code = 97638-7) Ordering Physician UnknownArterial blood bicarbonate measurement (moles/volume) 2019-02-25 04:46:00Identifier 1960-4 Result Time 2019-02-25 04:46:00Unknown Test Item Value Reference Range Comments Arterial blood bicarbonate measurement 22.7 mmol/L Unknown Unknown F (moles/volume) (test code = 1960-4) Ordering Physician UnknownArterial blood gas measurement with patient temperature aiqkrleuog7032-81-14 04:46:00Identifier 60900-4 Result Time 04:46:00Unknown Test Item Value Reference Range Comments Arterial blood gas measurement with Not Reportable Unknown Unknown F patient temperature correction (test code = 90152-4) Ordering Physician UnknownO2 saturation arterial ymbry1115-66-06 04:46: 00Identifier 2708-6 Result Time 2019-02-25 04:46:00Unknown Test Item Value Reference Range Comments O2 saturation arterial blood (test code = 97.8 % Unknown Unknown F 2708-6) Ordering Physician UnknownArterial blood pH emkpfvsnrqg2493-34-94 04:46: 00Identifier 2744-1 Result Time 2019-02-25 04:46:00Unknown Test Item Value Reference Range Comments Arterial blood pH measurement (test code = 7.36 Unknown Unknown F 2744-1) Ordering Physician UnknownPO2 arterial cord vggpd0944-10-57 04:46:00Identifier 70073-2 Result Time 2019-02-25 04:46:00Unknown Test Item Value Reference Range Comments PO2 arterial cord blood (test code = 83 mmHg Unknown Unknown F 33557-0) Ordering Physician UnknownArterial pCO2 with temperature qxisvyjgss5161-03-12 04 :46:00Identifier 50259-9 Result Time 2019-02-25 04:46:00Unknown Test Item Value Reference Range Comments Arterial pCO2 with temperature Not Reportable Unknown Unknown F correction (test code = 03686-8) Ordering Physician UnknownSerum or plasma alanine aminotransferase measurement ( enzymatic activity/volume)2019-02-24 15:52:00Identifier 1742-6 Result Time 02-24 15:52:00Unknown Test Item Value Reference Range Comments Serum or plasma alanine aminotransferase 3 U/L Unknown Unknown F measurement (enzymatic activity/volume) (test code = 1742-6) Ordering Physician UnknownSerum or plasma albumin/globulin mass klsdr6785-83-34 15:52:00Identifier 1759-0 Result Time 2019-02-24 15:52:00Unknown Test Item Value Reference Range Comments Serum or plasma albumin/globulin mass ratio 1.1 Unknown Unknown F (test code = 1759-0) Ordering Physician UnknownSerum or plasma magnesium measurement (mass/volume) 2019-02-24 15:52:00Identifier 56702-0 Result Time 2019-02-24 15:52:00Unknown Test Item Value Reference Range Comments Serum or plasma magnesium measurement 2.4 mg/dL Unknown Unknown F (mass/volume) (test code = 17603-6) Ordering Physician UnknownSerum or plasma aspartate aminotransferase measurement (enzymatic activity/volume)2019-02-24 15:52:00Identifier 0-8 Result Time 2019-02-24 15:52:00Unknown Test Item Value Reference Range Comments Serum or plasma aspartate aminotransferase 6 U/L Unknown Unknown F measurement (enzymatic activity/volume) (test code = 1920-8) Ordering Physician UnknownSerum or plasma total bilirubin measurement (mass/ volume)2019-02-24 15:52:00Identifier 1974-2 Result Time 2019-02-24 15:52: 00Unknown Test Item Value Reference Range Comments Serum or plasma total bilirubin 1.10 mg/dL Unknown Unknown F measurement (mass/volume) (test code = 1975-2) Ordering Physician UnknownSerum or plasma lactate measurement (moles/volume)2018 15:52:00Identifier 2524-7 Result Time 2019-02-24 15:52:00Unknown Test Item Value Reference Range Comments Serum or plasma lactate measurement 1.6 mmol/L Unknown Unknown F (moles/volume) (test code = 2524-7) Ordering Physician UnknownSerum total protein measurement (mass/volume) 15:52:00Identifier 2885-2 Result Time 2019-02-24 15:52:00Unknown Test Item Value Reference Range Comments Serum total protein measurement 5.7 g/dL Unknown Unknown F (mass/volume) (test code = 2885-2) Ordering Physician UnknownSerum or plasma albumin measurement by bromocresol green (BCG) dye binding method (fu0017-94-34 15:52:00Identifier 90103-4 Result Time 2019-02-24 15:52:00Unknown Test Item Value Reference Range Comments Serum or plasma albumin measurement by 3.0 g/dL Unknown Unknown F bromocresol green (BCG) dye binding method (ma (test code = 53719-8) Ordering Physician UnknownSerum or plasma alkaline phosphatase measurement ( enzymatic activity/volume)2019-02-24 15:52:00Identifier 6768-6 Result Time 02-24 15:52:00Unknown Test Item Value Reference Range Comments Serum or plasma alkaline phosphatase 54 U/L Unknown Unknown F measurement (enzymatic activity/volume) (test code = 6768-6) Ordering Physician UnknownBlood hemoglobin A1C/total hemoglobin By VLFU2077-83- 06 05:41:00Identifier 44272-4 Result Time 2019-02-24 05:41:00Unknown Test Item Value Reference Range Comments Blood hemoglobin A1C/total hemoglobin By HPLC 6.0 % Unknown Unknown F (test code = 40626-9) Ordering Physician UnknownStool Plesiomonas shigelloides DNA detection by non- probe and target amplification [id number] 22:45:00Identifier 17565-5 Result Time 2019-02-23 22:45:00Unknown Test Item Value Reference Range Comments Nasal Screen MRSA (PCR) (test Mrsa Not Detected Unknown Unknown F code = Nasal Screen MRSA (PCR)) Ordering Physician UnknownUrine urobilinogen measurement (units/volume) by test xiipu3833-55-30 14:35:00Identifier 92420-0 Result Time 2019-02-23 14:35: 00Unknown Test Item Value Reference Range Comments Urine urobilinogen measurement Negative Unknown Unknown F (units/volume) by test strip (test code = 85191-1) Ordering Physician UnknownUrine bacteria detection by automated nizqpv6112-32- 05 14:35:00Identifier 52607-8 Result Time 2019-02-23 14:35:00Unknown Test Item Value Reference Range Comments Urine bacteria detection by automated Absent Unknown Unknown F method (test code = 08329-2) Ordering Physician UnknownUrine total bilirubin detection by automated test gpcad5354-30-24 14:35:00Identifier 66436-3 Result Time 2019-02-23 14:35: 00Unknown Test Item Value Reference Range Comments Urine total bilirubin detection by Negative Unknown Unknown F automated test strip (test code = 55940-3) Ordering Physician UnknownUrine clarity by refractometry sxsllqldy9243-16-92 14: 35:00Identifier 54353-8 Result Time 2019-02-23 14:35:00Unknown Test Item Value Reference Range Comments Urine clarity by refractometry automated Turbid Unknown Unknown F (test code = 01510-6) Ordering Physician UnknownColor of Urine by Bbzf5364-70-18 14:35:00Identifier 57596-7 Result Time 2019-02-23 14:35:00Unknown Test Item Value Reference Range Comments Color of Urine by Auto (test code = 98826-1) Priyanka Unknown Unknown F Ordering Physician UnknownUrine glucose detection by automated test tzveq1824-75 -05 14:35:00Identifier 26383-7 Result Time 2019-02-23 14:35:00Unknown Test Item Value Reference Range Comments Urine glucose detection by automated test Negative Unknown Unknown F strip (test code = 44523-5) Ordering Physician UnknownKetones [Mass/volume] in Urine by Automated test hddvs6137-57-68 14:35:00Identifier 40374-2 Result Time 2019-02-23 14:35: 00Unknown Test Item Value Reference Range Comments Ketones [Mass/volume] in Urine by Negative Unknown Unknown F Automated test strip (test code = 97352-6) Ordering Physician UnknownUrine nitrite detection by automated test exway6122-05 -05 14:35:00Identifier 31025-4 Result Time 2019-02-23 14:35:00Unknown Test Item Value Reference Range Comments Urine nitrite detection by automated test Positive Unknown Unknown F strip (test code = 31870-9) Ordering Physician UnknownProtein [Mass/volume] in Urine by Automated test jzomk3002-22-16 14:35:00Identifier 92178-5 Result Time 2019-02-23 14:35: 00Unknown Test Item Value Reference Range Comments Protein [Mass/volume] in Urine by 2+(100 mg/dl) Unknown Unknown F Automated test strip (test code = 61574-8) Ordering Physician UnknownSpecific gravity of Urine by Refractometry ibihivdkn6350-05-64 14:35:00Identifier 17258-8 Result Time 2019-02-23 14:35: 00Unknown Test Item Value Reference Range Comments Specific gravity of Urine by Refractometry 1.014 Unknown Unknown F automated (test code = 76981-3) Ordering Physician UnknownUrine erythrocytes detection by automated cvjpnt405402-23 14:35:00Identifier 63972-4 Result Time 2019-02-23 14:35:00Unknown Test Item Value Reference Range Comments Urine erythrocytes detection by 3+(>10/hpf) Unknown Unknown F automated method (test code = 89122-4) Ordering Physician UnknownUrine leukocytes detection by automated xxdomh0296-68- 05 14:35:00Identifier 87992-2 Result Time 2019-02-23 14:35:00Unknown Test Item Value Reference Range Comments Urine leukocytes detection by 3+(>20/hpf) Unknown Unknown F automated method (test code = 71218-8) Ordering Physician UnknownUrine hemoglobin detection by test aimkc3035-28-42 14: 35:00Identifier 5794-3 Result Time 2019-02-23 14:35:00Unknown Test Item Value Reference Range Comments Urine hemoglobin detection by test strip (test 2+ Unknown Unknown F code = 5794-3) Ordering Physician UnknownUrine leukocyte esterase detection by automated test qtmgr4516-98-10 14:35:00Identifier 27495-2 Result Time 2019-02-23 14:35: 00Unknown Test Item Value Reference Range Comments Urine leukocyte esterase detection by automated 3+ Unknown Unknown F test strip (test code = 22472-3) Ordering Physician UnknownCulture, gltau0789-88-29 14:35:00Identifier 630-4 Result Time 2019-02-23 14:35:00Unknown Test Item Value Reference Range Comments Urine Culture (test code = Urine Escherichia Coli Unknown Unknown F Culture) Ordering Physician UnknownWhole blood international normalized ratio (INR)02-23 13:35:00Identifier 79669-7 Result Time 2019-02-23 13:35:00Unknown Test Item Value Reference Range Comments Whole blood international normalized ratio 1.71 Unknown Unknown F (INR) (test code = 22341-2) Ordering Physician UnknownSerum or plasma troponin i.cardiac measurement (mass/ volume)2019-02-23 12:52:00Identifier 46879-2 Result Time 2019-02-23 12:52: 00Unknown Test Item Value Reference Range Comments Serum or plasma troponin i.cardiac 0.03 ng/mL Unknown Unknown F measurement (mass/volume) (test code = 10502-2) Ordering Physician UnknownSerum or plasma natriuretic peptide B measurement ( mass/volume)2019-02-23 12:52:00Identifier 00997-7 Result Time 2019-02-23 12:52: 00Unknown Test Item Value Reference Range Comments Serum or plasma natriuretic peptide B 546 pg/mL Unknown Unknown F measurement (mass/volume) (test code = 23729-3) Ordering Physician Unknown
--- OUTSIDE RECORDS SUMMARY | 2019-03-09 09:54 | XMS REPORT ---
:1945 Author Organization [facility] Care Team Providers Name Role Phone Unavailable [...] UnknownSerum or plasma calcium measurement (mass/volume)02-26 03:54:00Identifier 26295-1 Result Time 2019-02-26 03:54:00Unknown Test Item Value Reference Range Comments Serum or plasma calcium measurement 8.5 mg/dL Unknown Unknown F (mass/volume) (test code = 48788-0) Ordering Physician UnknownSerum or plasma carbon dioxide, [...] Ordering Physician UnknownSerum or plasma urea nitrogen/creatinine qqqhb6110-82- 08 03:54:00Identifier 3097-3 Result Time 2019-02-26 03:54:00Unknown Test Item Value Reference Range Comments Serum or plasma urea nitrogen/creatinine 24.8 Unknown Unknown F ratio (test code = 3097-3) Ordering Physician UnknownAutomated blood platelet mean volume exzusrlwyeh8223- 11-08 03:54:00Identifier 38158-8 Result Time 2019-02-26 03:54:00Unknown Test Item Value Reference Range Comments Automated blood platelet mean volume 7.6 fL Unknown Unknown F measurement (test code = 32041-6) Ordering Physician UnknownSerum or plasma anion kdu1219-27-04 03:54: 00Identifier 84946-9 Result Time 2019-02-26 03:54:00Unknown Test Item Value Reference Range Comments Serum or plasma anion gap (test code = 6 mmol/L Unknown Unknown F 55221-2) Ordering Physician UnknownAutomated blood leukocytes count corrected for nucleated erythrocytes (number/volume)2019-02-26 03:54:00Identifier 34948-2 Result Time 2019-02-26 03:54:00Unknown Test Item Value Reference Range Comments Automated blood leukocytes count 5.1 10^3/uL Unknown Unknown F corrected for nucleated erythrocytes (number/volume) (test code = 90046-1) Ordering Physician UnknownAutomated blood nucleated erythrocytes jeaokthvo1471- 11-08 03:54:00Identifier 61012-4 Result Time 2019-02-26 03:54:00Unknown Test Item Value Reference Range Comments Automated blood nucleated erythrocytes 0.0 Unknown Unknown F detection (test code = 93985-1) Ordering Physician UnknownAutomated blood hematocrit (percentage)2019-02-26 03: 54:00Identifier 4544-3 Result Time 2019-02-26 03:54:00Unknown Test Item Value Reference Range Comments Automated blood hematocrit (percentage) (test 35 % Unknown Unknown F code = 4544-3) Ordering Physician UnknownEstimated glomerular filtration rate (GFR) non- Fklxodlr2146-84-77 03:54:00Identifier 64717-2 Result Time 2019-02-26 03: 54:00Unknown Test Item Value Reference Range Comments Estimated glomerular filtration rate (GFR) 35.4 Unknown Unknown F non- (test code = 30889-1) Ordering Physician UnknownAutomated blood monocytes/100 [id number] 03: 54:00Identifier 5905-5 Result Time 2019-02-26 03:54:00Unknown [...] = 704-7) Ordering Physician UnknownAutomated blood basophils/100 zvaftaptkp8330-50-19 03: 54:00Identifier 706-2 Result Time 2019-02-26 03:54:00Unknown [...] = 711-2) Ordering Physician UnknownAutomated blood eosinophils/100 msudzsdgci2954-86-69 03:54:00Identifier 713-8 Result Time 2019-02-26 03:54:00Unknown Test [...] = 731-0) Ordering Physician UnknownAutomated blood lymphocytes/100 yronldfbmq2500-99-72 03:54:00Identifier 736-9 Result Time 2019-02-26 03:54:00Unknown Test Item Value Reference Range Comments Automated blood lymphocytes/100 leukocytes 6.5 % Unknown Unknown F (test code = 736-9) Ordering Physician UnknownBlood monocytes automated count (number/volume)2019-02 03:54:00Identifier 742-7 Result Time 2019-02-26 03:54:00Unknown Test Item Value Reference Range Comments Blood monocytes automated count 0.5 10^3/ul Unknown Unknown F (number/volume) (test code = 742-7) Ordering Physician UnknownAutomated blood neutrophils/100 ipvfvkyfda4069-52-46 03:54:00Identifier 770-8 Result Time 2019-02-26 03:54:00Unknown Test [...] UnknownAutomated erythrocyte mean corpuscular hemoglobin concentration measurement (mass/ghn3212-78-23 03:54:00Identifier 786-4 Result Time 2019-02-26 03:54:00Unknown Test Item Value Reference Range Comments Automated erythrocyte mean corpuscular 33 g/dL Unknown Unknown F hemoglobin concentration measurement (mass/vol (test code = 786-4) Ordering Physician UnknownAutomated erythrocyte mean corpuscular suuitd6407-40- 08 03:54:00Identifier 787-2 Result Time 2019-02-26 03:54:00Unknown Test Item Value Reference Range Comments Automated erythrocyte mean corpuscular volume 94 fL Unknown Unknown F (test code = 787-2) Ordering Physician UnknownAutomated erythrocyte distribution width qctmb6419-53- 08 03:54:00Identifier 788-0 Result Time 2019-02-26 03:54:00Unknown [...] code = 789-8) Ordering Physician UnknownCT biopsy cpynr6161-72-29 03:54:00Identifier [id number] Result Time 2019-02-26 03:54:00Unknown Test Item Value Reference Range Comments CT biopsy liver (test code = DXR4787) 4.1 10^3/ul Unknown Unknown F Ordering Physician UnknownArterial blood base excess dwhhfwcbccu6736-54-06 04:46 :00Identifier 1925-7 Result Time 2019-02-25 04:46:00Unknown Test Item Value Reference Range Comments Arterial blood base excess measurement -2.7 mmol/L Unknown Unknown F (test code = 1925-7) Ordering Physician UnknownArterial blood partial pressure of oxygen with temperature ybebqomnrv7185-36-21 04:46:00Identifier 32797-3 Result Time 04:46:00Unknown Test Item Value Reference Range Comments Arterial blood partial pressure of Not Reportable Unknown Unknown F oxygen with temperature correction (test code = 41847-3) Ordering Physician UnknownArterial blood bicarbonate measurement (moles/volume) 2019-02-25 04:46:00Identifier 1960-4 Result Time 2019-02-25 04:46:00Unknown Test Item Value Reference Range Comments Arterial blood bicarbonate measurement 22.7 mmol/L Unknown Unknown F (moles/volume) (test code = 1960-4) Ordering Physician UnknownArterial blood gas measurement with patient temperature yvgbyxcupm9850-06-17 04:46:00Identifier 39217-2 Result Time 04:46:00Unknown Test Item Value Reference Range Comments Arterial blood gas measurement with Not Reportable Unknown Unknown F patient temperature correction (test code = 84839-8) Ordering Physician UnknownO2 saturation arterial myezx0025-17-80 04:46: 00Identifier 2708-6 Result Time 2019-02-25 04:46:00Unknown Test Item Value Reference Range Comments O2 saturation arterial blood (test code = 97.8 % Unknown Unknown F 2708-6) Ordering Physician UnknownArterial blood pH jidepuqtnbw6927-48-90 04:46: 00Identifier 2744-1 Result Time 2019-02-25 04:46:00Unknown Test Item Value Reference Range Comments Arterial blood pH measurement (test code = 7.36 Unknown Unknown F 2744-1) Ordering Physician UnknownPO2 arterial cord dvrbu8898-87-34 04:46:00Identifier 93221-7 Result Time 2019-02-25 04:46:00Unknown Test Item Value Reference Range Comments PO2 arterial cord blood (test code = 83 mmHg Unknown Unknown F 88489-3) Ordering Physician UnknownArterial pCO2 with temperature cakzvoguvw3426-56-51 04 :46:00Identifier 82157-6 Result Time 2019-02-25 04:46:00Unknown Test Item Value Reference Range Comments Arterial pCO2 with temperature Not Reportable Unknown Unknown F correction (test code = 95472-3) Ordering Physician UnknownSerum or plasma alanine aminotransferase measurement ( enzymatic activity/volume)2019-02-24 15:52:00Identifier 1742-6 Result Time 02-24 15:52:00Unknown Test Item Value Reference Range Comments Serum or plasma alanine aminotransferase 3 U/L Unknown Unknown F measurement (enzymatic activity/volume) (test code = 1742-6) Ordering Physician UnknownSerum or plasma albumin/globulin mass udfyt2700-89-71 15:52:00Identifier 1759-0 Result Time 2019-02-24 15:52:00Unknown Test Item Value Reference Range Comments Serum or plasma albumin/globulin mass ratio 1.1 Unknown Unknown F (test code = 1759-0) Ordering Physician UnknownSerum or plasma magnesium measurement (mass/volume) 2019-02-24 15:52:00Identifier 92839-7 Result Time 2019-02-24 15:52:00Unknown Test Item Value Reference Range Comments Serum or plasma magnesium measurement 2.4 mg/dL Unknown Unknown F (mass/volume) (test code = 14900-0) Ordering Physician UnknownSerum or plasma aspartate aminotransferase [...] by bromocresol green (BCG) dye binding method (ng8052-96-44 15:52:00Identifier 80291-7 Result Time 2019-02-24 15:52:00Unknown Test Item Value Reference Range Comments Serum or plasma albumin measurement by 3.0 g/dL Unknown Unknown F bromocresol green (BCG) dye binding method (ma (test code = 53728-7) Ordering Physician UnknownSerum or plasma alkaline phosphatase measurement ( enzymatic activity/volume)2019-02-24 15:52:00Identifier 6768-6 Result Time 02-24 15:52:00Unknown Test Item Value Reference Range Comments Serum or plasma alkaline phosphatase 54 U/L Unknown Unknown F measurement (enzymatic activity/volume) (test code = 6768-6) Ordering Physician UnknownBlood hemoglobin A1C/total hemoglobin By [id number]- 06 05:41:00Identifier 36710-7 Result Time 2019-02-24 05:41:00Unknown Test Item Value Reference Range Comments Blood hemoglobin A1C/total hemoglobin By HPLC 6.0 % Unknown Unknown F (test code = 96713-1) Ordering Physician UnknownStool Plesiomonas shigelloides DNA detection by non- probe and target amplification [id number] 22:45:00Identifier 57528-3 Result Time 2019-02-23 22:45:00Unknown Test Item Value Reference Range Comments Nasal Screen MRSA (PCR) (test Mrsa Not Detected Unknown Unknown F code = Nasal Screen MRSA (PCR)) Ordering Physician UnknownUrine urobilinogen measurement (units/volume) by test jsckw8021-78-71 14:35:00Identifier 62309-9 Result Time 2019-02-23 14:35: 00Unknown Test Item Value Reference Range Comments Urine urobilinogen measurement Negative Unknown Unknown F (units/volume) by test strip (test code = 65638-0) Ordering Physician UnknownUrine bacteria detection by automated yiwzby8727-70- 05 14:35:00Identifier 27461-8 Result Time 2019-02-23 14:35:00Unknown Test Item Value Reference Range Comments Urine bacteria detection by automated Absent Unknown Unknown F method (test code = 78385-8) Ordering Physician UnknownUrine total bilirubin detection by automated test ofpsv5827-25-48 14:35:00Identifier 02760-2 Result Time 2019-02-23 14:35: 00Unknown Test Item Value Reference Range Comments Urine total bilirubin detection by Negative Unknown Unknown F automated test strip (test code = 71190-8) Ordering Physician UnknownUrine clarity by refractometry kxxboywlj2666-80-18 14: 35:00Identifier 67056-7 Result Time 2019-02-23 14:35:00Unknown Test Item Value Reference Range Comments Urine clarity by refractometry automated Turbid Unknown Unknown F (test code = 80869-5) Ordering Physician UnknownColor of Urine by Qtil2688-21-81 14:35:00Identifier 99195-4 Result Time 2019-02-23 14:35:00Unknown Test Item Value Reference Range Comments Color of Urine by Auto (test code = 57814-6) Priyanka Unknown Unknown F Ordering Physician UnknownUrine glucose detection by automated test ewrot7458-87 -05 14:35:00Identifier 72492-0 Result Time 2019-02-23 14:35:00Unknown Test Item Value Reference Range Comments Urine glucose detection by automated test Negative Unknown Unknown F strip (test code = 19852-7) Ordering Physician UnknownKetones [Mass/volume] in Urine by Automated test mrtjj9845-60-80 14:35:00Identifier 53413-5 Result Time 2019-02-23 14:35: 00Unknown Test Item Value Reference Range Comments Ketones [Mass/volume] in Urine by Negative Unknown Unknown F Automated test strip (test code = 43509-0) Ordering Physician UnknownUrine nitrite detection by automated test urvbf2682-46 -05 14:35:00Identifier 51150-0 Result Time 2019-02-23 14:35:00Unknown Test Item Value Reference Range Comments Urine nitrite detection by automated test Positive Unknown Unknown F strip (test code = 62147-3) Ordering Physician UnknownProtein [Mass/volume] in Urine by Automated test xcqsq9108-10-39 14:35:00Identifier 19583-7 Result Time 2019-02-23 14:35: 00Unknown Test Item Value Reference Range Comments Protein [Mass/volume] in Urine by 2+(100 mg/dl) Unknown Unknown F Automated test strip (test code = 16909-0) Ordering Physician UnknownSpecific gravity of Urine by Refractometry zhbkchher8927-58-21 14:35:00Identifier 14817-6 Result Time 2019-02-23 14:35: 00Unknown Test Item Value Reference Range Comments Specific gravity of Urine by Refractometry 1.014 Unknown Unknown F automated (test code = 66636-3) Ordering Physician UnknownUrine erythrocytes detection by automated tpuorv880902-23 14:35:00Identifier 09279-5 Result Time 2019-02-23 14:35:00Unknown Test Item Value Reference Range Comments Urine erythrocytes detection by 3+(>10/hpf) Unknown Unknown F automated method (test code = 65455-9) Ordering Physician UnknownUrine leukocytes detection by automated gblyhi2426-54- 05 14:35:00Identifier 17002-0 Result Time 2019-02-23 14:35:00Unknown Test Item Value Reference Range Comments Urine leukocytes detection by 3+(>20/hpf) Unknown Unknown F automated method (test code = 17260-9) Ordering Physician UnknownUrine hemoglobin detection by test fwtqw2073-31-08 14: 35:00Identifier 5794-3 Result Time 2019-02-23 14:35:00Unknown Test Item Value Reference Range Comments Urine hemoglobin detection by test strip (test 2+ Unknown Unknown F code = 5794-3) Ordering Physician UnknownUrine leukocyte esterase detection by automated test xivfu4072-31-77 14:35:00Identifier 32309-8 Result Time 2019-02-23 14:35: 00Unknown Test Item Value Reference Range Comments Urine leukocyte esterase detection by automated 3+ Unknown Unknown F test strip (test code = 25685-0) Ordering Physician UnknownCulture, ykbgy9545-50-16 14:35:00Identifier 630-4 Result Time 2019-02-23 14:35:00Unknown Test Item Value Reference Range Comments Urine Culture (test code = Urine Escherichia Coli Unknown Unknown F Culture) Ordering Physician UnknownWhole blood international normalized ratio (INR)02-23 13:35:00Identifier 92053-6 Result Time 2019-02-23 13:35:00Unknown Test Item Value Reference Range Comments Whole blood international normalized ratio 1.71 Unknown Unknown F (INR) (test code = 97474-2) Ordering Physician UnknownSerum or plasma troponin i.cardiac measurement (mass/ volume)2019-02-23 12:52:00Identifier 41766-6 Result Time 2019-02-23 12:52: 00Unknown Test Item Value Reference Range Comments Serum or plasma troponin i.cardiac 0.03 ng/mL Unknown Unknown F measurement (mass/volume) (test code = 96935-4) Ordering Physician UnknownSerum or plasma natriuretic peptide B measurement ( mass/volume)2019-02-23 12:52:00Identifier 95413-7 Result Time 2019-02-23 12:52: 00Unknown Test Item Value Reference Range Comments Serum or plasma natriuretic peptide B 546 pg/mL Unknown Unknown F measurement (mass/volume) (test code = 60044-5) Ordering Physician Unknown
[2019-03-09 10:36] LABS: ABS Basophils 0.1 10^3/ul (0-0.2); ABS Eosinophils 0.1 10^3/ul (0-0.6); ABS Lymphocytes 0.3 10^3/ul (1.0-4.8); ABS Monocytes 0.3 10^3/ul (0-0.8); Eosinophil % 1.7 %; Hematocrit 35 % (35-47); Hemoglobin 11.6 g/dL (12.0-16.0); Mean Corpuscular HGB Conc 33 g/dL (31-36); Mean Corpuscular Hemoglobin 30 pg (27-31); Mean Corpuscular Volume 92 fL (80-97); Mean Platelet Volume 7.7 fL (7.4-10.4); Platelet Count 192 10^3/uL (150-450); Red Blood Count 3.81 10^6 /uL (3.70-4.87); Red Cell Distribution Width 16 % (10-15); White Blood Count 5.8 10^3/uL (3.5-10.8)
[2019-03-09 10:54] LABS: Albumin 3.4 g/dL (3.2-5.2); BUN/Creatinine Ratio 28.4 (8-20); Calcium 9.3 mg/dL (8.6-10.3); EGFR African American 46.9 (>60); EGFR Non-African American 38.8 (>60); Globulin 3.4 g/dL (2-4); Magnesium 1.4 mg/dL (1.9-2.7); Potassium 3.9 mmol/L (3.5-5.0); Total Bilirubin 1.2 mg/dL (0.2-1.0); Total Protein 6.8 g/dL (6.4-8.9)
[2019-03-09 10:55] LABS: Troponin I 0.02 ng/mL (<0.03)
[2019-03-09] MEDS ORDERED: Iodixanol* (CONTRAST) 320 MG/ML 100 ML SDV IV ONE (11:09)
[2019-03-09] MEDS ORDERED: Furosemide IV* 10 MG/ML VIAL (40 MG) IV SLOW PU ONE (12:40)
[2019-03-09] MEDS ORDERED: Albuterol HFA INHALER* 8 gm MDI INH PRN (14:05)
[2019-03-09] MEDS ORDERED: Al Hydrox/Mg Hydrox/Simet LIQ* 30 ML UDC PO PRN (14:05)
[2019-03-09] MEDS ORDERED: Furosemide IV* 10 MG/ML VIAL (40 MG) IV ONE (14:20)
[2019-03-09] MEDS ORDERED: Magnesium Sulf 4 GM/100 ML IV* 4,000 MG/100 ML BAG IVPB ONE (14:37)
--- NOTE | 2019-03-09 15:49 | HP ---
CC: Dr. Mccarthy; Dr. Green * HISTORY AND PHYSICAL: DATE OF ADMISSION: 03/09/19 PRIMARY CARE PROVIDER: Dr. Mccarthy. OTHER PROVIDER: Dr. Green. ATTENDING PHYSICIAN: Dr. Obrien * (dictated by CHING Sesay). CHIEF COMPLAINT: Unresponsive. HISTORY OF PRESENT ILLNESS: Ms. Rosado is a 73-year-old female with a past medical history of heart failure with preserved ejection fraction, atrial fibrillation, recurrent right pleural effusion and COPD, requiring 2 L of nocturnal O2, tobacco abuse, who presented to the ER today after being found unresponsive this morning in her bed at [facility]. She was found unresponsive with O2 sats in the 60s. Oxygen was administered and the patient became arousable and responded well to this intervention. The patient notes that she does not remember these events, but that when she opened her eyes, there were " a bunch of people around my bed." She does remember the ambulance ride from [facility] to [facility]. She notes that she had shortness of breath last night when she was lying flat in bed. She typically uses 2 L of oxygen nocturnally, but did not do so last night, she is unsure why. She complains of an occasionally productive cough for "months" but denies fever and chills. She complains of leg spasms for approximately 2 weeks as well as joint pain which is chronic. She is currently requiring 4 L of supplemental oxygen. It is important to note that the patient was discharged from [facility] on 03/08/19 with diagnosis of hypoxic respiratory failure secondary to CHF exacerbation and right pleural effusion. She had a thoracentesis with drainage evaluation that was found to be transudative, likely secondary to decompensated diastolic heart failure. In the ER, the patient was noted to have a mildly low hemoglobin. She was also noted to have an elevated D-dimer which prompted a CTA of the chest, which was negative for PE but did show right pleural effusion and right anterior upper lobe lung nodule. Chest x-ray reveals right basilar atelectasis with right pleural effusion. EKG shows atrial flutter. In the ER, the hospitalist team was asked to further evaluate the patient for admission. PAST MEDICAL HISTORY: 1. Heart failure with preserved ejection fraction. 2. Atrial fibrillation, on apixaban. 3. COPD, requiring 2 L nocturnal oxygen. 4. Hypertension. 5. 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 6. Recurrent right pleural effusion. 7. Pulmonary hypertension. 8. Obstructive sleep apnea. 9. GERD. 10. Tobacco abuse. 11. Urinary retention. 12. Chronic kidney disease. PAST SURGICAL HISTORY: Appendectomy, cholecystectomy, hysterectomy, [employer] shunt and clipping for aneurysm, spinal surgery, cataracts. HOME MEDICATIONS: 1. Acetaminophen 650 mg p.o. q.4 hours p.r.n. 2. Maalox 30 mL p.o. q.6 hours p.r.n. 3. Albuterol powder 2 puff inhalation q.4 hours p.r.n. 4. Alendronate 70 mg p.o. weekly. 5. Apixaban 5 mg p.o. b.i.d. 6. Cholestyramine resin 4 g p.o. t.i.d. 7. Citalopram 40 mg p.o. daily. 8. Cyanocobalamin 1000 mcg p.o. daily. 9. Ferrous sulfate 325 mg p.o. daily. 10. Furosemide 40 mg p.o. daily. 11. Magnesium oxide 400 mg p.o. daily. 12. Metoprolol tartrate 50 mg p.o. q.12 hours. 13. Montelukast 10 mg p.o. daily. 14. Nicotine patch 21 mg 1 patch transdermally daily at 0800. 15. Nystatin topical powder t.i.d. 16. Omeprazole 20 mg p.o. b.i.d. 17. Sulfadiazine 1 application topically daily. 18. Umeclidinium MDI 1 puff inhalation daily. 19. Urea-C40 cream 40% one application topically daily. DRUG ALLERGIES: Tomato. FAMILY HISTORY: Father at the age of 88 due to dementia, had a history of hypertension, diabetes. Mother at unknown age due to heart failure, , had a history of hypertension, [place]. No family history of CVA or cancer. SOCIAL HISTORY: The patient has smoked 1 pack per day for approximately 50 years. She is currently using tobacco daily approximately 1-1/2 of the pack per day. She drinks alcohol once per year at [place]. She does not use any recreational drug. She is retired from [employer] on [employer]. She lives with her sister. In the event that she is unable to make her own medical decisions, she has appointed her sister, Lorena Simpson, to be her surrogate decision maker. REVIEW OF SYSTEMS: A 14-point review of systems has been performed and all the pertinent positives and negatives are in the HPI. All other systems are negative. PHYSICAL EXAMINATION GENERAL: Ms. Rosado is a well-developed, well-nourished, obese older white woman who is sitting up in bed. She appears to be in no acute distress. She is breathing comfortably on 4 L of supplemental oxygen. Her sister is at the bedside. VITAL SIGNS: Temperature 96.0 temporal, heart rate 84, respiratory rate 22, oxygen saturation 91% on 3 L of oxygen, blood pressure 130/90. HEENT: Visual estrada grossly intact. PERRL. EOMI. Nonicteric sclerae. Hearing is grossly intact. Oral mucous membranes are mildly dry. There are no lesions. The pharynx is clear. The tongue is at midline. Palate elevates symmetrically. RESPIRATORY: Decreased breath sounds to the right lower lobe with basilar rales. Left upper lobe has mild end-expiratory wheezing. No rhonchi or rubs. CARDIOVASCULAR: Irregularly irregular with S1, S2 present without murmurs, rubs , clicks, or gallops. There is no JVD. There is no peripheral edema. ABDOMEN: Obese. Bowel sounds in all quadrants. Soft, nontender to palpation. There is a Davis catheter in place. MUSCULOSKELETAL: Full range of motion without pain or deformities. Strength equal bilaterally. Bilateral lower extremities with chronic skin changes. NEUROLOGIC: The patient is awake. She is alert and oriented x3 with cranial nerves grossly intact. Motor strength is 5/5 bilaterally in upper and lower extremities. DIAGNOSTIC STUDIES/LAB DATA: EKG shows atrial flutter. Chest x-ray, impression: Cardiomegaly, right basilar atelectasis with likely right pleural effusion is noted. CTA of the chest, impression: No evidence of pulmonary embolism. Right pleural effusion. No evidence of aortic dissection is noted. Nodule is noted in the anterior right upper lobe. No pericardial effusion is noted. HGB 11.6, D-dimer 1050, creatinine 1.34, BUN 38, magnesium 1.4, BNP 744. ASSESSMENT AND PLAN: Ms. Rosado is a 73-year-old female with a past medical history of diastolic heart failure; atrial fibrillation, on anticoagulation; recurrent right pleural effusion; chronic obstructive pulmonary disease, requiring 2 L nocturnal supplemental oxygen; tobacco abuse, who presented to the ER today via ambulance after being found unresponsive in bed this morning. She will be admitted for: 1. Unresponsive. The patient was found in bed unresponsive with oxygen saturation in the 60s. Supplemental oxygen was administered and she became alert and responsive. By the time she arrived at the ER, she was alert and oriented x3. She is currently on 4 L of oxygen. The most likely cause of her unresponsive episode is hypoxia in the setting of right pleural effusion, exacerbated heart failure, and noncompliance with nighttime oxygen. The patient typically uses 2 L of oxygen at bedtime, but this was not used last night. 2. Acute on chronic respiratory failure. The patient was discharged yesterday on 2 L of oxygen. She did not receive this during the day. She also notes that she did not use oxygen at bedtime. I am unsure why this is, if she did not have access to it or if she did not use it. Regardless, the patient likely became hypoxic overnight and was then unresponsive. She is currently requiring 3 to 4 L of oxygen supplementally right now. She may need multimedia manager oxygen. She does continue to use tobacco, which will continue to worsen her chronic obstructive pulmonary disease. She also has a pleural effusion that is found to be transudative and is likely due to diastolic heart failure. She will continue supplemental oxygen. She will be transitioned to IV Lasix 40 daily. Mucinex and MetaNebs have been ordered. Dr. Green was consulted and recommended MetaNebs and Mucinex, but does not believe that pleural effusion warrants drainage at this time. 3. Atrial fibrillation. Continue home medications, metoprolol tartrate and apixaban. 4. Hypertension. Continue metoprolol. 5. Chronic obstructive pulmonary disease. Continue home inhalers. Add on MetaNebs and Mucinex. The patient does not appear to be in exacerbation at this time, so we will avoid steroids. Continue nocturnal oxygen. Wean oxygen as able, although the patient may require daytime oxygen at discharge. 6. Urinary retention. Continue Davis catheter. 7. Depression. Continue citalopram. 8. Hypomagnesemia. We will replete with 4 g of IV magnesium and recheck in the morning. 9. DVT prophylaxis: Continue apixaban as at home. 10. Code status: DNR/DNI. TIME SPENT: Approximately 60 minutes was spent on this admission, greater than half that time was spent sntv-eb-pium with the patient and her sister obtaining history, performing physical, and reviewing the plan of care. The case has been reviewed with my attending, Dr. Obrien, who is in agreement with the plan of care. CHING ROSALES [id number]/CPS #: [id number]
[2019-03-09] MEDS: Acetaminophen TAB* 325 MG PO PRN ×2 (16:12→20:34)
[2019-03-09] MEDS: Metoprolol Tartrate TAB* 50 mg PO SCH ×2 (16:12→20:25)
[2019-03-09] MEDS: Albuterol/Ipratropium NEB.SOL* Albuterol 2.5 MG/Ipratropium 0.5 MG 3 ML INH SCH ×2 (16:14→20:39)
[2019-03-09] MEDS: guaiFENesin ER TAB 600 MG PO SCH (20:25)
[2019-03-09] MEDS: Pantoprazole TAB * 40 MG TAB PO SCH (20:25)
[2019-03-09] MEDS: Cholestyramine Resin* 4 GM POWDER PO SCH (20:25)
[2019-03-09] MEDS: Apixaban* 5 MG TAB PO SCH (20:25)
[2019-03-09] MEDS ORDERED: Metoprolol Tartrate TAB* 50 mg PO SCH (21:00)
[2019-03-10] MEDS: Albuterol/Ipratropium NEB.SOL* Albuterol 2.5 MG/Ipratropium 0.5 MG 3 ML INH SCH ×3 (01:24→13:57)
[2019-03-10 01:59] LABS: Urine Appearance Cloudy; Urine Bilirubin Negative (Negative); Urine Blood 3+ (Negative); Urine Color Yellow; Urine Glucose Negative (Negative); Urine Ketones Negative (Negative); Urine Nitrite Negative (Negative); Urine Protein Negative (Negative); Urine Specific Gravity 1.025 (1.010-1.030); Urine Urobilinogen Negative (Negative)
[2019-03-10 02:07] LABS: Urine Bacteria Absent (Absent); Urine Red Blood Cell 3+(>10/hpf) (Absent); Urine Squamous Epithelial Cell Present (Absent); Urine White Blood Cell 3+(>20/hpf) (Absent)
[2019-03-10 06:08] LABS: ABS Basophils 0.1 10^3/ul (0-0.2); ABS Eosinophils 0.2 10^3/ul (0-0.6); ABS Lymphocytes 0.3 10^3/ul (1.0-4.8); ABS Monocytes 0.4 10^3/ul (0-0.8); ABS Neutrophils 5.1 10^3/ul (1.5-7.7); Eosinophil % 3.8 %; Hematocrit 33 % (35-47); Hemoglobin 11.2 g/dL (12.0-16.0); Lymphocyte % 5.3 %; Mean Corpuscular HGB Conc 34 g/dL (31-36); Mean Corpuscular Hemoglobin 31 pg (27-31); Mean Corpuscular Volume 91 fL (80-97); Mean Platelet Volume 7.8 fL (7.4-10.4); Platelet Count 184 10^3/uL (150-450); Red Blood Count 3.61 10^6 /uL (3.70-4.87); Red Cell Distribution Width 15 % (10-15); White Blood Count 6.1 10^3/uL (3.5-10.8)
[2019-03-10 06:36] LABS: Calcium 9.2 mg/dL (8.6-10.3); EGFR African American 45.3 (>60); EGFR Non-African American 37.5 (>60); Magnesium 2.3 mg/dL (1.9-2.7); Potassium 4.1 mmol/L (3.5-5.0)
[2019-03-10] MEDS: SPIRIVA Respimat* (tiotropium) 2.5 mcg/inh Inhaler INH SCH (07:29)
[2019-03-10] MEDS: Montelukast Sodium TAB* 10 MG PO SCH (08:06)
[2019-03-10] MEDS: Cholestyramine Resin* 4 GM POWDER PO SCH ×2 (08:06→16:53)
[2019-03-10] MEDS: Nicotine PATCH 21 MG/24 HR* PATCH TRANSDERM SCH (08:06)
[2019-03-10] MEDS: Magnesium Oxide TAB* 400 MG PO SCH (08:06)
[2019-03-10] MEDS: Cyanocobalamin TAB* 500 MCG PO SCH (08:06)
[2019-03-10] MEDS: Furosemide IV* 10 MG/ML VIAL (40 MG) IV SCH (08:06)
[2019-03-10] MEDS: Pantoprazole TAB * 40 MG TAB PO SCH ×2 (08:07→20:53)
[2019-03-10] MEDS: Citalopram TAB* 40 MG PO SCH (08:07)
[2019-03-10] MEDS: Acetaminophen TAB* 325 MG PO PRN ×2 (08:07→20:53)
[2019-03-10] MEDS: Ferrous Sulfate TAB* 325 MG PO SCH (08:07)
[2019-03-10] MEDS: Metoprolol Tartrate TAB* 50 mg PO SCH ×2 (08:07→20:53)
[2019-03-10] MEDS: Apixaban* 5 MG TAB PO SCH ×2 (08:07→20:53)
[2019-03-10] MEDS: guaiFENesin ER TAB 600 MG PO SCH ×2 (08:13→20:53)
[2019-03-10] MEDS ORDERED: Furosemide TAB* 40 MG PO SCH (09:00)
[2019-03-10] MEDS ORDERED: Spironolactone TAB* 25 MG PO SCH (10:30)
[2019-03-10 11:33] LABS: HDL Cholesterol 19.9 mg/dL
--- NOTE | 2019-03-10 18:51 | PN ---
Subjective Date of Service: 03/10/19 Interval History: Patient tells me she feels well today. She tells me she had minimally dyspnea with ambulating to the bathroom today, but states that this is near her baseline. Denies dyspnea at rest, fever/chills, chest pain, abd pain. Objective Active Medications: Acetaminophen (Tylenol Tab*) 650 mg PO Q4H PRN PRN Reason: mild to moderate pain Last Admin: 03/10/19 08:07 Dose: 650 mg Al Hydrox/Mg Hydrox/Simethicone (Maalox Plus*) 30 ml PO Q6H PRN PRN Reason: INDIGESTION Albuterol (Ventolin Hfa Inhaler*) 2 puff INH Q4H PRN PRN Reason: SHORTNESS OF BREATH Albuterol/Ipratropium (Duoneb (Albuterol 2.5 Mg/Ipratropium 0.5 Mg)) 1 neb INH [id number] AWAKE [facility] Last Admin: 03/10/19 13:57 Dose: 1 neb Apixaban (Eliquis*) 5 mg PO BID [facility] Last Admin: 03/10/19 08:07 Dose: 5 mg Cholestyramine Resin (Questran*) 4 gm PO QPM [facility] Last Admin: 03/10/19 16:53 Dose: 4 gm Citalopram Hydrobromide (Celexa Tab*) 40 mg PO DAILY [facility] Last Admin: 03/10/19 08:07 Dose: 40 mg Cyanocobalamin (Vitamin B12 Tab*) 1,000 mcg PO DAILY [facility] Last Admin: 03/10/19 08:06 Dose: 1,000 mcg Ferrous Sulfate (Ferrous Sulfate Tab*) 325 mg PO DAILY [facility] Last Admin: 03/10/19 08:07 Dose: 325 mg Furosemide (Lasix Iv*) 40 mg IV DAILY [facility] Last Admin: 03/10/19 08:06 Dose: 40 mg Guaifenesin (Mucinex*) 600 mg PO BID [facility] Last Admin: 03/10/19 08:13 Dose: Not Given Magnesium Oxide (Magox 400 Tab*) 400 mg PO DAILY [facility] Last Admin: 03/10/19 08:06 Dose: 400 mg Metolazone (Zaroxolyn Tab*) 5 mg PO DAILY@0830 [facility] Metoprolol Tartrate (Lopressor Tab*) 50 mg PO Q12HR [facility] Last Admin: 03/10/19 08:07 Dose: 50 mg Montelukast Sodium (Singulair Tab*) 10 mg PO DAILY [facility] Last Admin: 03/10/19 08:06 Dose: 10 mg Nicotine (Nicotine Patch 21 Mg/24 Hr*) 1 patch TRANSDERM DAILY@0800 [facility] Last Admin: 03/10/19 08:06 Dose: 1 patch Pantoprazole Sodium (Protonix Tab*) 20 mg PO BID [facility] Last Admin: 03/10/19 08:07 Dose: 20 mg Tiotropium [place] (Spiriva Respimat 2.5 Mcg) 2 puff INH DAILY [facility] Last Admin: 03/10/19 07:29 Dose: 2 puff Vital Signs - 8 hr 03/10/19 03/10/19 03/10/19 11:00 11:15 13:57 Temperature 97.3 F Pulse Rate 82 80 Respiratory 20 20 Rate Blood Pressure 104/77 103/68 (mmHg) O2 Sat by Pulse 98 98 Oximetry 03/10/19 16:12 Temperature 97.8 F Pulse Rate 96 Respiratory 16 Rate Blood Pressure 111/63 (mmHg) O2 Sat by Pulse 96 Oximetry Oxygen Devices in Use Now: Nasal Cannula Appearance: Obese, elderly white female, sitting in hospital chair, appearing comfortable and in NAD Eyes: No Scleral Icterus, - - PERRL Ears/Nose/Mouth/Throat: Mucous Membranes Moist Neck: Trachea Midline Respiratory: Symmetrical Chest Expansion and Respiratory Effort, Clear to Auscultation Cardiovascular: NL Sounds; No Murmurs; No JVD, RRR Abdominal: - - abd soft, nontender, nonidstended Extremities: No Edema, No Clubbing, Cyanosis Skin: No Rash or Ulcers Neurological: Alert and Oriented x 3, NL Muscle Strength and Tone Result Diagrams: 03/10/19 05:15 03/10/19 05:14 Microbiology and Other Data: Microbiology 03/09/19 15:55 Nasal Screen MRSA (PCR) - Final Nasal Mrsa Not Detected Assess/Plan/Problems-Billing Assessment: 73 yo white female with PMHx HFpEF, Afib, HTN, chronic R pleural effusion with recent thoracentsis, COPD on 2L oxygen since recent discharge, and tobacco use who presents after an unresponsive episode with hypoxia. - Patient Problems (1) Acute on chronic respiratory failure with hypoxia Current Visit: No Status: Acute Priority: Medium Code(s): J96.21 - ACUTE AND CHRONIC RESPIRATORY FAILURE WITH HYPOXIA SNOMED Code(s): 00900945 Comment: -Presented after unresponsive event, found to have oxygen sat of 60% due to poor oxygen adherence at [facility] -Secondary to diastolic CHF and pleural effusion -discharged recently with 2L oxygen requirement, now using 4-5 L -diuresing as described below -attempting to wean O2 (2) Hypertension Current Visit: Yes Status: Acute Code(s): I10 - ESSENTIAL (PRIMARY) HYPERTENSION SNOMED Code(s): 61200246 Comment: -normotensive -continue metoprolol (3) CHF (congestive heart failure) Current Visit: No Status: Acute Code(s): I50.9 - HEART FAILURE, UNSPECIFIED SNOMED Code(s): 23201949 Comment: -Right sided pleural effusion drained with thoracentesis during recent hospitalization; has not reaccumulated since discharge as pleural effusion seems stable on CXR -continue IV lasix, adding metolazone -recent hospitalization had hypotension with more aggressive diuresis, will continue to monitor -Echo done in 09/2018- EF of 60-65% with severe LA dilatation with moderate to severe calcification of mitral valve and mild dynamic obstruction of LV -continue metoprolol (4) Atrial fibrillation Current Visit: No Status: Acute Priority: Medium Code(s): I48.91 - UNSPECIFIED ATRIAL FIBRILLATION SNOMED Code(s): 45951062 Comment: -rate controlled -continue metoprolol 50 mg BID -continue Eliquis (5) COPD (chronic obstructive pulmonary disease) Current Visit: No Status: Acute Code(s): J44.9 - CHRONIC OBSTRUCTIVE PULMONARY DISEASE, UNSPECIFIED SNOMED Code(s): 98723311 Comment: -No evidence of exacerbation. Continue Spiriva, nebs, singulair -Encourage smoking cessation (6) Depression Current Visit: No Status: Acute Code(s): F32.9 - MAJOR DEPRESSIVE DISORDER, SINGLE EPISODE, UNSPECIFIED SNOMED Code(s): 92862326 Comment: - Continue citalopram (7) Urinary retention Current Visit: No Status: Acute Priority: Medium Code(s): R33.9 - RETENTION OF URINE, UNSPECIFIED SNOMED Code(s): 185971096 Comment: - Pt has opted for jimenez on d/c after failed voiding trial x3 during recent admission - should have another voiding trial (8) DNR (do not resuscitate) Current Visit: Yes Status: Acute (9) DVT prophylaxis Current Visit: No Status: Acute Code(s): LHT5767 - SNOMED Code(s): 922922299 Comment: -Kamryn
[2019-03-10] MEDS: Nicotine Patch Removal NOTE PATCH OFF SCH (20:56)
[2019-03-10] MEDS: Ammonium Lactate 12% 1 APPLIC TUBE TOPICAL SCH (21:45)
[2019-03-11 06:00] LABS: BUN/Creatinine Ratio 28.9 (8-20); Calcium 9.2 mg/dL (8.6-10.3); EGFR African American 49.5 (>60); EGFR Non-African American 40.9 (>60); Potassium 3.7 mmol/L (3.5-5.0)
[2019-03-11] MEDS: Albuterol/Ipratropium NEB.SOL* Albuterol 2.5 MG/Ipratropium 0.5 MG 3 ML INH SCH ×2 (07:17→08:08)
[2019-03-11] MEDS ORDERED: Albuterol/Ipratropium NEB.SOL* Albuterol 2.5 MG/Ipratropium 0.5 MG 3 ML INH PRN (08:05)
[2019-03-11] MEDS: SPIRIVA Respimat* (tiotropium) 2.5 mcg/inh Inhaler INH SCH (08:06)
[2019-03-11] MEDS: Apixaban* 5 MG TAB PO SCH ×2 (08:38→20:22)
[2019-03-11] MEDS: Cyanocobalamin TAB* 500 MCG PO SCH (08:38)
[2019-03-11] MEDS: Citalopram TAB* 40 MG PO SCH (08:38)
[2019-03-11] MEDS: Montelukast Sodium TAB* 10 MG PO SCH (08:38)
[2019-03-11] MEDS: Nicotine PATCH 21 MG/24 HR* PATCH TRANSDERM SCH (08:38)
[2019-03-11] MEDS: Metolazone TAB* 5 MG PO SCH (08:38)
[2019-03-11] MEDS: guaiFENesin ER TAB 600 MG PO SCH ×2 (08:38→20:22)
[2019-03-11] MEDS: Ferrous Sulfate TAB* 325 MG PO SCH (08:38)
[2019-03-11] MEDS: Metoprolol Tartrate TAB* 50 mg PO SCH ×2 (08:38→20:22)
[2019-03-11] MEDS: Pantoprazole TAB * 40 MG TAB PO SCH ×2 (08:39→20:22)
[2019-03-11] MEDS: Magnesium Oxide TAB* 400 MG PO SCH (08:39)
[2019-03-11] MEDS: Furosemide IV* 10 MG/ML VIAL (40 MG) IV SCH (09:22)
[2019-03-11] MEDS: Ammonium Lactate 12% 1 APPLIC TUBE TOPICAL SCH ×2 (09:22→20:22)
[2019-03-11] MEDS: Acetaminophen TAB* 325 MG PO PRN ×2 (10:56→23:13)
[2019-03-11] MEDS: Cholestyramine Resin* 4 GM POWDER PO SCH (16:48)
--- NOTE | 2019-03-11 19:38 | PN ---
Subjective Date of Service: 03/11/19 Interval History: Patient feels her breathing is comfortable. Has minimal dyspnea when ambulating which is her baseline. Denies chest pain, fever/chills, abd pain, n/v. Objective Active Medications: Acetaminophen (Tylenol Tab*) 650 mg PO Q4H PRN PRN Reason: mild to moderate pain Last Admin: 03/11/19 10:56 Dose: 650 mg Al Hydrox/Mg Hydrox/Simethicone (Maalox Plus*) 30 ml PO Q6H PRN PRN Reason: INDIGESTION Albuterol (Ventolin Hfa Inhaler*) 2 puff INH Q4H PRN PRN Reason: SHORTNESS OF BREATH Albuterol/Ipratropium (Duoneb (Albuterol 2.5 Mg/Ipratropium 0.5 Mg)) 1 neb INH [id number] AWAKE PRN PRN Reason: SOB/WHEEZING Ammonium Lactate (Lac-Hydrin 12 %) 1 applic TOPICAL BID [facility] Last Admin: 03/11/19 09:22 Dose: 1 applic Apixaban (Eliquis*) 5 mg PO BID [facility] Last Admin: 03/11/19 08:38 Dose: 5 mg Cholestyramine Resin (Questran*) 4 gm PO QPM [facility] Last Admin: 03/11/19 16:48 Dose: 4 gm Citalopram Hydrobromide (Celexa Tab*) 40 mg PO DAILY [facility] Last Admin: 03/11/19 08:38 Dose: 40 mg Cyanocobalamin (Vitamin B12 Tab*) 1,000 mcg PO DAILY [facility] Last Admin: 03/11/19 08:38 Dose: 1,000 mcg Ferrous Sulfate (Ferrous Sulfate Tab*) 325 mg PO DAILY [facility] Last Admin: 03/11/19 08:38 Dose: 325 mg Furosemide (Lasix Iv*) 40 mg IV DAILY [facility] Last Admin: 03/11/19 09:22 Dose: 40 mg Guaifenesin (Mucinex*) 600 mg PO BID [facility] Last Admin: 03/11/19 08:38 Dose: 600 mg Magnesium Oxide (Magox 400 Tab*) 400 mg PO DAILY [facility] Last Admin: 03/11/19 08:39 Dose: 400 mg Metolazone (Zaroxolyn Tab*) 5 mg PO DAILY@0830 [facility] Last Admin: 03/11/19 08:38 Dose: 5 mg Metoprolol Tartrate (Lopressor Tab*) 50 mg PO Q12HR [facility] Last Admin: 03/11/19 08:38 Dose: 50 mg Montelukast Sodium (Singulair Tab*) 10 mg PO DAILY [facility] Last Admin: 03/11/19 08:38 Dose: 10 mg Nicotine (Nicotine Patch 21 Mg/24 Hr*) 1 patch TRANSDERM DAILY@0800 [facility] Last Admin: 03/11/19 08:38 Dose: 1 patch Pantoprazole Sodium (Protonix Tab*) 20 mg PO BID [facility] Last Admin: 03/11/19 08:39 Dose: 20 mg Pharmacy Profile Note (Nicotine Patch Removal Note*) 1 note PATCH OFF 2100 [facility] Last Admin: 03/10/19 20:56 Dose: 1 note Tiotropium [place] (Spiriva Respimat 2.5 Mcg) 2 puff INH DAILY [facility] Last Admin: 03/11/19 08:06 Dose: 2 puff Vital Signs - 8 hr 03/11/19 14:56 Temperature 97.8 F Pulse Rate 94 Respiratory 14 Rate Blood Pressure 104/46 (mmHg) O2 Sat by Pulse 96 Oximetry Oxygen Devices in Use Now: Nasal Cannula Appearance: elderly white female, sitting in chair, appearing in NAD Eyes: No Scleral Icterus, - - PERRL Ears/Nose/Mouth/Throat: Mucous Membranes Moist Neck: NL Appearance and Movements; NL JVP Respiratory: Symmetrical Chest Expansion and Respiratory Effort, - - not using accessory muscles to breathe; minimally diminished breath sounds in right lower lobe, otherwise CTA Abdominal: - - abd soft, nontender, nondistneded Extremities: No Edema, No Clubbing, Cyanosis Skin: No Rash or Ulcers Neurological: Alert and Oriented x 3, NL Muscle Strength and Tone Result Diagrams: 03/10/19 05:15 03/11/19 05:10 Microbiology and Other Data: Microbiology 03/09/19 15:55 Nasal Screen MRSA (PCR) - Final Nasal Mrsa Not Detected Assess/Plan/Problems-Billing Assessment: 73 yo white female with PMHx HFpEF, Afib, HTN, chronic R pleural effusion with recent thoracentsis, COPD on 2L oxygen since recent discharge, and tobacco use who presents after an unresponsive episode with hypoxia. - Patient Problems (1) Acute on chronic respiratory failure with hypoxia Current Visit: No Status: Acute Priority: Medium Code(s): J96.21 - ACUTE AND CHRONIC RESPIRATORY FAILURE WITH HYPOXIA SNOMED Code(s): 48616534 Comment: -Presented after unresponsive event, found to have oxygen sat of 60% due to poor oxygen adherence at [facility] -Secondary to diastolic CHF and pleural effusion -discharged recently with 2L oxygen requirement, now stable on 3L including with ambulation -diuresing as described below -attempting to wean O2 further (2) Hypertension Current Visit: Yes Status: Acute Code(s): I10 - ESSENTIAL (PRIMARY) HYPERTENSION SNOMED Code(s): 62496250 Comment: -normotensive -continue metoprolol (3) CHF (congestive heart failure) Current Visit: No Status: Acute Code(s): I50.9 - HEART FAILURE, UNSPECIFIED SNOMED Code(s): 99369233 Comment: -Right sided pleural effusion drained with thoracentesis during recent hospitalization; has not reaccumulated since discharge as pleural effusion seems stable on CXR -continue IV lasix, adding metolazone -recent hospitalization had hypotension with more aggressive diuresis, will continue to monitor -Echo done in 09/2018- EF of 60-65% with severe LA dilatation with moderate to severe calcification of mitral valve and mild dynamic obstruction of LV -continue metoprolol (4) Atrial fibrillation Current Visit: No Status: Acute Priority: Medium Code(s): I48.91 - UNSPECIFIED ATRIAL FIBRILLATION SNOMED Code(s): 80823915 Comment: -rate controlled -continue metoprolol 50 mg BID -continue Eliquis (5) COPD (chronic obstructive pulmonary disease) Current Visit: No Status: Acute Code(s): J44.9 - CHRONIC OBSTRUCTIVE PULMONARY DISEASE, UNSPECIFIED SNOMED Code(s): 00786863 Comment: -No evidence of exacerbation. Continue Spiriva, nebs, singulair -Encourage smoking cessation (6) Depression Current Visit: No Status: Acute Code(s): F32.9 - MAJOR DEPRESSIVE DISORDER, SINGLE EPISODE, UNSPECIFIED SNOMED Code(s): 44158924 Comment: - Continue citalopram (7) Urinary retention Current Visit: No Status: Acute Priority: Medium Code(s): R33.9 - RETENTION OF URINE, UNSPECIFIED SNOMED Code(s): 234685060 Comment: - attempting another voiding trial - failed voiding trial x3 during recent hospitalization (8) DNR (do not resuscitate) Current Visit: Yes Status: Acute (9) DVT prophylaxis Current Visit: No Status: Acute Code(s): UTH4128 - SNOMED Code(s): 798550617 Comment: -Eliquis Status and Disposition: ready for discharge but unable to return to [facility] due to insurance reasons
[2019-03-11] MEDS: Nicotine Patch Removal NOTE PATCH OFF SCH (20:26)
[2019-03-12] MEDS: SPIRIVA Respimat* (tiotropium) 2.5 mcg/inh Inhaler INH SCH (07:35)
[2019-03-12 08:02] VITALS: BP 104/64
[2019-03-12] MEDS: Nicotine PATCH 21 MG/24 HR* PATCH TRANSDERM SCH (08:46)
[2019-03-12] MEDS: Cyanocobalamin TAB* 500 MCG PO SCH (08:47)
[2019-03-12] MEDS: Metolazone TAB* 5 MG PO SCH (08:47)
[2019-03-12] MEDS: Pantoprazole TAB * 40 MG TAB PO SCH (08:47)
[2019-03-12] MEDS: guaiFENesin ER TAB 600 MG PO SCH (08:47)
[2019-03-12] MEDS: Montelukast Sodium TAB* 10 MG PO SCH (08:47)
[2019-03-12] MEDS: Ammonium Lactate 12% 1 APPLIC TUBE TOPICAL SCH (08:48)
[2019-03-12] MEDS: Ferrous Sulfate TAB* 325 MG PO SCH (08:48)
[2019-03-12] MEDS: Apixaban* 5 MG TAB PO SCH (08:48)
[2019-03-12] MEDS: Citalopram TAB* 40 MG PO SCH (08:48)
[2019-03-12] MEDS: Metoprolol Tartrate TAB* 50 mg PO SCH (08:48)
[2019-03-12] MEDS: Magnesium Oxide TAB* 400 MG PO SCH (08:49)
--- NOTE | 2019-03-12 08:57 | DS ---
CC: Dr. Mccarthy * DISCHARGE SUMMARY: DATE OF ADMISSION: 03/09/19 DATE OF DISCHARGE: 03/12/19 PROVIDER: CHING Guadalupe ATTENDING PROVIDER: Cale Pardo MD * (DICTATED BY CHING GUADALUPE) PRIMARY CARE PROVIDER: Dr. Mccarthy. PRIMARY DIAGNOSES: 1. Hypoxia, likely related to oxygen nonadherence as well as decompensated heart failure with preserved ejection fraction. 2. Episode of unresponsiveness, secondary to hypoxia. SECONDARY DIAGNOSES: 1. Heart failure with preserved ejection fraction. 2. Atrial fibrillation, on apixaban. 3. Chronic obstructive pulmonary disease, previously requiring 2 L of nocturnal oxygen, now requiring 3 L of continuous oxygen. 4. Hypertension. 5. Aneurysm, status post clipping and ventriculoperitoneal shunt. 6. Cerebrovascular accident. 7. Recurrent right pleural effusions, likely related to heart failure with preserved ejection fraction. 8. Pulmonary hypertension. 9. Obstructive sleep apnea. 10. Gastroesophageal reflux disease. 11. Tobacco use. 12. Urinary retention. 13. Chronic kidney disease. PERTINENT STUDIES WHILE IN THE HOSPITAL: CTA of the chest: No evidence of pulmonary embolism. Right pleural effusion. No evidence of aortic dissection is noted. Nodule is noted in the right anterior upper lobe. No pericardial effusion is noted. Chest x-ray on 03/10/19: Cardiomegaly. Right basilar atelectasis with likely right pleural effusion is noted. Per my read, the pleural effusion is unchanged from chest x-ray after thoracentesis during previous hospital stay. PERTINENT LAB DATA: On 03/11/19, creatinine is 1.28. Magnesium on 03/09/19 was 1.4 and magnesium on 03/11/19 is 2.0. HISTORY OF PRESENT ILLNESS/HOSPITAL COURSE: Litzy Rosado is a 73-year-old white female with past medical history significant for COPD, tobacco use, recurrent right pleural effusion, heart failure with preserved fraction, and atrial fibrillation, on anticoagulation, who presented to the emergency department via [facility], where she is participating in subacute rehab, due to an episode of unresponsiveness at [facility]. She was recently discharged to [facility] on 03/08/19 with a complicated hospital course. For further details regarding that stay, please see the discharge summary from Dr. Juanis Polanco from that date. Obviously, the patient presented the day after this discharge. It appears that she was not wearing her oxygen at [facility] for unknown reasons. She was discharged with 2 L of oxygen via nasal cannula at all times, and previously, her only requirement before this hospital stay was 2 L overnight. However, this appeared to be her new baseline at the time of that discharge. She did have a thoracentesis during that hospital stay. During this hospitalization, she was initially requiring 4 to 5 L of oxygen, however, it was ultimately titrated down to 3 L of oxygen. She was able to ambulate using 3 L of oxygen and maintaining good oxygen saturation over 88%, and during her hospital stay, her atrial fibrillation was overall rate controlled. Her blood pressure was overall within normal limits. She used MetaNebs, and by date of discharge, she was feeling well and to her baseline from respiratory status with minimal dyspnea on exertion, which recovers quickly. Metolazone was started during her hospital stay and the patient ultimately has lost 3.5 kg with this diuresis in combination with 40 mg IV Lasix. PHYSICAL EXAMINATION ON THE DAY OF DISCHARGE: General: Elderly female, sitting on the hospital bed, appearing comfortable, in no acute distress. Eyes : PERRLA. Sclerae anicteric. ENT: Mucous membranes are moist. Lungs: Right- sided diminished breath sounds, otherwise clear to auscultation throughout. Cardio: Regular rate and rhythm without murmurs, rubs, or gallops. Abdomen: Soft, nontender, nondistended. Extremities: No clubbing, cyanosis, or edema. Skin: Dry skin to bilateral lower extremities, otherwise warm, dry, and intact. Neuro: The patient is alert and oriented x3. No focal deficits. Able to move all extremities. No tremors. DISCHARGE PLAN: Diet: Regular, unrestricted diet. Activity: The patient may return to normal activity as tolerated. The patient is to be using 3 L of supplemental oxygen via nasal cannula at all times. It is possible that with further diuresis outpatient, this could be titrated down. She had a Davis placed during her previous hospital stay on and failed multiple void trials. Please perform an additional voiding trial at [facility] with postvoid residual scan after the removal of Davis, the patient refused during this hospital stay. Please repeat BMP and magnesium in 1 week. The patient will be returning to [facility] for subacute rehab where she will be participating in daily therapy. She should follow up with her primary care provider 1 week after discharge from [facility]. She should return to the hospital for episode of unresponsiveness, dizziness, lightheadedness, loss of consciousness, chest pain, difficulty breathing that is not resolved by nebulizers, or fevers or chills. DISCHARGE MEDICATIONS: 1. Cholestyramine 4 g p.o. q.p.m. 2. Metolazone 5 mg p.o. Friday, Friday, Friday, to be administered 30 minutes prior to Lasix. 3. Acetaminophen 650 mg p.o. q.4 hours p.r.n. pain. 4. Maalox 30 mL p.o. q.6 hours p.r.n. indigestion. 5. Lasix 40 mg p.o. daily. 6. Magnesium oxide 400 mg p.o. daily. 7. Metoprolol tartrate 50 mg p.o. q.12 hours. 8. Nicotine patch 21 mg/24 hours 1 patch transdermal daily. 9. Fosamax 70 mg p.o. weekly. 10. Nystatin powder 1 application topically t.i.d. 11. Omeprazole 20 mg p.o. b.i.d. 12. Vitamin B12 1000 mcg p.o. daily. 13. Incruse Ellipta 1 puff inhaled daily. 14. ProAir RespiClick 2 puffs inhaled q.4 hours p.r.n. shortness of breath/ wheezing. 15. Singulair 10 mg p.o. daily. 16. Silvadene 1 application topically daily. 17. Urea cream 40% 1 application topically daily. 18. Eliquis 5 mg p.o. b.i.d. 19. Citalopram 40 mg p.o. daily. 20. Ferrous sulfate 325 mg p.o. daily. CONDITION ON DISCHARGE: Stable. DISPOSITION: [facility] for subacute rehab. TIME SPENT: Approximately 35 minutes was spent on this discharge, approximately half that time spent at the bedside evaluating the patient, discussing the plan of care. CHING GUADALUPE [id number]/[facility] #: [id number] MTDD
[2019-03-12] MEDS: Furosemide IV* 10 MG/ML VIAL (40 MG) IV SCH (09:14)
== END 2019-03-12 11:05 ==
LOC: ED 09:22 → MEDTELE 14:00
PROVIDERS: ADMIT Internal Medicine; ATTEND Internal Medicine
DX: R09.02 Hypoxemia (principal); R41.82 Altered mental status, unspecified; I11.0 Hypertensive heart disease with heart failure; I50.30 Unspecified diastolic (congestive) heart failure; J44.9 Chronic obstructive pulmonary disease, unspecified; I13.0 Hypertensive heart and chronic kidney disease with heart failure and stage 1 through stage 4 chronic kidney disease, or unspecified chronic kidney disease; N18.9 Chronic kidney disease, unspecified; I72.9 Aneurysm of unspecified site; Z86.73 Personal history of transient ischemic attack (TIA), and cerebral infarction without residual deficits; J90 Pleural effusion, not elsewhere classified; G47.33 Obstructive sleep apnea (adult) (pediatric); I27.20 Pulmonary hypertension, unspecified; K21.9 Gastro-esophageal reflux disease without esophagitis; Z72.0 Tobacco use; R33.9 Retention of urine, unspecified; Z79.899 Other long term (current) drug therapy; Z79.01 Long term (current) use of anticoagulants; I48.91 Unspecified atrial fibrillation; Z66 Do not resuscitate
CPT/HCPCS: 36415; 71045; 71275; 80048; 80053; 80061; 81003; 81015; 82803; 83735; 83880; 84484; 85025; 85379; 87086; 87641; 93005; 94640; 94667; 94668; 96365; 96366; 96375; 96376; 99284; A9270-GY; G0378; G8978-GP-CJ; G8978-GP-CK; G8979-GP-CI; J1940; J3475; J3535; Q9967

== ENCOUNTER 2019-07-16 12:29 | Inpatient (IN) | payer MEDICARE, OTHER ==
[2019-07-16] MEDS ORDERED: Albuterol/Ipratropium NEB.SOL* Albuterol 2.5 MG/Ipratropium 0.5 MG 3 ML ONE (12:35)
--- NOTE | 2019-07-16 13:02 | ED ---
Respiratory - HPI Summary HPI Summary: 73 year old F presenting to [facility] with a chief complaint of chronic shortness of breath, worse the past couple of days. The patient has a history of a chronic cough. Per EMS the patient's oxygen saturation was 77% on 3 L which is what she is normally on. Her oxygen saturation dropped to 66% in the ambulance. She was put on 10 L of oxygen with a nonrebreather and her oxygen saturation pooja to be in the 90s. Patient reports that she was recently at [facility] for rehab after a fall and was discharged to live with her sister. Patient denies any chest pain, fever, sore throat, vomiting, or diarrhea. She has a history of CHF and COPD. Medication list reviewed. Allergy list reviewed. Home Medications Medication Instructions Recorded Confirmed Type Omeprazole CAP (NF) [Prilosec CAP* 20 mg PO DAILY 07/22/12 07/16/19 History 20 MG] Alendronate (NF) [Fosamax (NF)] 70 mg PO WEEKLY 02/27/17 07/16/19 History Apixaban* [Eliquis*] 5 mg PO BID 02/23/19 07/16/19 History Citalopram TAB* [Celexa TAB*] 40 mg PO DAILY 02/23/19 07/16/19 History Cyanocobalamin TAB* [Vitamin B12 1,000 mcg PO DAILY 02/23/19 07/16/19 History TAB*] Ferrous Sulfate TAB* 325 mg PO DAILY 02/23/19 07/16/19 History Montelukast Sodium TAB* [Singulair 10 mg PO DAILY 02/23/19 07/16/19 History 10 MG TAB*] Furosemide TAB* [Lasix TAB*] 40 mg PO DAILY tab 03/05/19 07/16/19 Rx Magnesium Oxide TAB* [MagOx 400 400 mg PO DAILY tab 03/05/19 07/16/19 Rx TAB*] Cholestyramine Resin* [Questran*] 4 gm PO QPM powder 03/12/19 07/16/19 Rx Ipratropium/Albuterol Sulfate 3 ml INH QID 04/30/19 07/16/19 History [Iprat-Albut 0.5-3(2.5) mg/3 ml] Metoprolol Tartrate TAB* 50 mg PO BID WITH MEALS 04/30/19 07/16/19 History [Lopressor TAB*] Polyethylene Glycol 3350* 17 gm PO DAILY 04/30/19 07/16/19 History [Miralax*] Umeclidin/Vilant 62.5 MDI(NF) 1 puff INH DAILY 04/30/19 07/16/19 History [ANORO 62.5/25 Ellipta DEVICE (NF)] Acetaminophen [Tylenol Extra 1,000 mg PO Q8H PRN 07/16/19 07/16/19 History Strength] Albuterol HFA INHALER* [Ventolin 2 puff INH Q4H PRN 07/16/19 07/16/19 History HFA Inhaler*] Citalopram TAB* [CeleXA TAB*] 10 mg PO DAILY 07/16/19 07/16/19 History Metolazone TAB* [Zaroxolyn TAB*] 5 mg PO .3X/WEEK 07/16/19 07/16/19 History Nicotine PATCH 7 MG/24 HR* 1 patch TRANSDERM DAILY 07/16/19 07/16/19 History - History of Current Complaint Stated Complaint: SOB PER EMS Time Seen by Provider: 07/16/19 12:41 Hx Obtained From: Patient Onset/Duration: Lasting Days Associated Signs and Symptoms: Negative - Chest pain, fever, sore throat, vomiting, diarrhea - Allergy/Home Medications Allergies/Adverse Reactions: Allergies Allergy/AdvReac Type Severity Reaction Status Date / Time tomato Allergy Swelling Verified 07/16/19 13:16 Of Face,Lips,& Throat Home Medications: Home Medications Omeprazole CAP (NF) [Prilosec CAP* 20 MG] 20 mg PO DAILY 07/22/12 [History Confirmed 07/16/19] Alendronate (NF) [Fosamax (NF)] 70 mg PO WEEKLY 02/27/17 [History Confirmed ] Apixaban* [Eliquis*] 5 mg PO BID 02/23/19 [History Confirmed 07/16/19] Citalopram TAB* [Celexa TAB*] 40 mg PO DAILY 02/23/19 [History Confirmed ] Cyanocobalamin TAB* [Vitamin B12 TAB*] 1,000 mcg PO DAILY 02/23/19 [History Confirmed 07/16/19] Ferrous Sulfate TAB* 325 mg PO DAILY 02/23/19 [History Confirmed 07/16/19] Montelukast Sodium TAB* [Singulair 10 MG TAB*] 10 mg PO DAILY 02/23/19 [History Confirmed 07/16/19] Furosemide TAB* [Lasix TAB*] 40 mg PO DAILY tab 03/05/19 [Rx Confirmed 07/16/19 ] Magnesium Oxide TAB* [MagOx 400 TAB*] 400 mg PO DAILY tab 03/05/19 [Rx Confirmed 07/16/19] Cholestyramine Resin* [Questran*] 4 gm PO QPM powder 03/12/19 [Rx Confirmed ] Ipratropium/Albuterol Sulfate [Iprat-Albut 0.5-3(2.5) mg/3 ml] 3 ml INH QID 02/07 [History Confirmed 07/16/19] Metoprolol Tartrate TAB* [Lopressor TAB*] 50 mg PO BID WITH MEALS 04/30/19 [ History Confirmed 07/16/19] Polyethylene Glycol 3350* [Miralax*] 17 gm PO DAILY 04/30/19 [History Confirmed 07/16/19] Umeclidin/Vilant 62.5 MDI(NF) [ANORO 62.5/25 Ellipta DEVICE (NF)] 1 puff INH DAILY 04/30/19 [History Confirmed 07/16/19] Acetaminophen [Tylenol Extra Strength] 1,000 mg PO Q8H PRN 07/16/19 [History Confirmed 07/16/19] Albuterol HFA INHALER* [Ventolin HFA Inhaler*] 2 puff INH Q4H PRN 07/16/19 [ History Confirmed 07/16/19] Citalopram TAB* [CeleXA TAB*] 10 mg PO DAILY 07/16/19 [History Confirmed ] Metolazone TAB* [Zaroxolyn TAB*] 5 mg PO .3X/WEEK 07/16/19 [History Confirmed ] Nicotine PATCH 7 MG/24 HR* 1 patch TRANSDERM DAILY 07/16/19 [History Confirmed 07/16/19] PMH/Surg Hx/FS Hx/Imm Hx Endocrine/Hematology History: Reports: Hx Diabetes Denies: Hx Anticoagulant Therapy, Hx Thyroid Disease, Hx Anemia, Hx Unexplained Bleeding Cardiovascular History: Reports: Hx Aneurysm - CEREBRAL ANEURYSM WITH CLIP, Hx Angina, Hx Atrial Fibrillation - On Eliquis, Hx Congestive Heart Failure, Hx Deep Vein Thrombosis, Hx Hypercholesterolemia, Hx Hypertension, Other Cardiovascular Problems/Disorders - murmur Denies: Hx Angioplasty, Hx Auto Implanted Cardiovert Defib, Hx Cardiac Arrest , Hx Cardiomegaly, Hx Coronary Artery Disease, Hx Hypotension, Hx Pacemaker/ICD , Hx Peripheral Vascular Disease, Hx Rheumatic Fever, Hx Valvular Heart Disease Respiratory History: Reports: Hx Chronic Obstructive Pulmonary Disease (COPD), Hx Pleural Effusion, Hx Pneumonia, Other Respiratory Problems/Disorders - HX INTUBATION 2013 W/FLU A Denies: Hx Asthma, Hx Chronic Bronchitis, Hx Pulmonary Edema, Hx Pulmonary Embolism, Hx Seasonal Allergies, Hx Sleep Apnea GI History: Reports: Hx Gall Bladder Disease, Hx Gastroesophageal Reflux Disease - TAKES OMEPRAZOLE, Hx Ulcer - GI, Other GI Disorders - BARRETTS ESOPHAGUS Denies: Hx Cirrhosis, Hx Diverticulosis, Hx Gastrointestinal Bleed, Hx Irritable Bowel History: Reports: Hx Kidney Stones - 2 WEEKS AGO, Hx Renal Disease - URINARY SEPSIS, Other Problems/Disorders - RENAL INSUFF Denies: Hx Dialysis Musculoskeletal History: Reports: Hx Arthritis, Hx Back Problems, Hx Bursitis, Other Musculoskeletal History - hernia Sensory History: Reports: Hx Cataracts, Hx Contacts or Glasses Denies: Hx Hearing Aid Opthamlomology History: Reports: Hx Cataracts, Hx Contacts or Glasses Neurological History: Reports: Hx CVA, Hx Seizures, Other Neuro Impairments/ Disorders - CEREBRAL ANEURYSM, CASING BUILDER shunt Denies: Hx Dementia, Hx Developmental Delay, Hx Headaches, Hx Migraine, Hx Nerve Disease, Hx Spinal Cord Injury, Hx Transient Ischemic Attacks (TIA) Psychiatric History: Denies: Hx Panic Disorder, Hx Substance Abuse - Surgical History Surgery Procedure, Year, and Place: CASING BUILDER SHUNT 2002- PER [place] SCAN W/O XRAYS , NON-PROGRAMMABLE. LUMBAR LAMINECTOMY. CHOLECYSTECTOMY. CEREBRAL ANEURYSM CLIPPING 2002- CLEARED ON PREV MRI IN 2011, OP REPORT SCANNED INTO PACS. MULTIPLE TOE SURGERIES. PICC LINE 2013. HYSTERECTOMY. 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 in 2017, nares Denies: Hx Hepatitis, Hx Human Immunodeficiency Virus (HIV), Hx Shingles, Hx Tuberculosis - Family History Known Family History: Positive: Cardiac Disease - CAD, Hypertension, Diabetes, Other - Dementia, neg: Breast CA - Social History Alcohol Use: None Alcohol Amount: "at keturah" Hx Substance Use: No Substance Use Type: Reports: None Hx Tobacco Use: Yes Smoking Status (MU): Former Smoker Type: Cigarettes Amount Used/How Often: 1ppd Length of Time of Smoking/Using Tobacco: 40years Have You Smoked in the Last Year: Yes Review of Systems Negative: Fever Negative: Sore Throat Negative: Chest Pain Positive: Shortness Of Breath, Cough Negative: Vomiting, Diarrhea All Other Systems Reviewed And Are Negative: Yes Physical Exam - Summary Physical Exam Summary: Constitutional: Well-developed, Well-nourished, Alert. (-) Distressed, speaking in full sentences Skin: Warm, Dry HENT: Normocephalic; Atraumatic Eyes: Conjunctiva normal Neck: Musculoskeletal ROM normal neck. (-) JVD, (-) Stridor, (-) Tracheal deviation Cardio: Rhythm regular, rate normal, Heart sounds normal; Intact distal pulses; Radial pulses are 2+ and symmetric. (-) Murmur Pulmonary/Chest wall: Effort normal. (-) Respiratory distress, (-) Rales, no accessory muscles used, oxygen saturation is 99% on 3 L nasal cannula, decreased breath sounds in all lung estrada, no obvious wheezing or crackles Abd: Soft, (-) tenderness, (-) Distension, (-) Guarding, (-) Rebound Musculoskeletal: 1+ pitting edema bilaterally Lymph: (-) Cervical adenopathy Neuro: Alert, Oriented x3 Psych: Mood and affect Normal Triage Information Reviewed: Yes Vital Signs Reviewed: Yes Procedures - Sedation Patient Received Moderate/Deep Sedation with Procedure: No Diagnostics - Laboratory Result Diagrams: 07/16/19 14:12 07/16/19 14:12 Lab Statement: Any lab studies that have been ordered have been reviewed, and results considered in the medical decision making process. - Radiology Chest x-ray Radiology Interpretation Completed By: Radiologist Summary of Radiographic Findings: LOCULATED RIGHT PLEURAL EFFUSION IS NOTED. ED physician has reviewed this report. - CT Chest/thorax CTA CT Interpretation Completed By: Radiologist Summary of CT Findings: 1. A 2.1 cm nodule in the right upper lobe is suspected to be surgical device sales representative of rounded atelectasis; however, this should either be evaluated with PET CT or chest CT in 3-6 months to further document stability. 2. No pulmonary embolism is identified. 3. Cardiomegaly with reflux of contrast into the hepatic veins is suggestive of. right-sided heart failure. Interstitial pulmonary edema with small bilateral pleural. effusions. 4. Coronary artery calcifications. Extensive atherosclerotic disease. 5. Mild biapical centrilobular emphysema. 6. The mediastinal lymph nodes are similarly increased in number and at the upper limits of normal in size. 7. Old compression fractures. ED physician has reviewed this report. - EKG 13:09 Cardiac Rate: Other Rate - 91 BPM EKG Rhythm: Atrial Fibrillation Summary of EKG Findings: No obvious ischemic changes. ED physician has reviewed and interpreted this EKG. Disposition - Course Course Of Treatment: Patient is here with worsening shortness of breath. Patient was initially hypoxic with EMS but was satting in the 90s on her typical 3 L nasal cannula upon arrival here. She had an x-ray performed which showed pleural effusion which was loculated. Patient had blood work performed which showed an elevated troponin of 0.38, elevated BNP. Patient's EKG showed atrial fibrillation without evidence of ischemia. Patient had a CTA of her chest to evaluate for PE given her elevated troponin and shortness of breath which was negative for PE. He was admitted to the hospital for further workup of her elevated troponin and management of her likely CHF exacerbation - Diagnoses Provider Diagnoses: Elevated troponin, Shortness of breath, Hypoxemia, CHF exacerbation - Physician Notifications Discussed Care Of Patient With: Nickie Lazar Time Discussed With Above Provider: 16:13 Instructed by Provider To: Other - Discussed with Dr. Lazar who accepts the patient for admission. Discharge ED - Sign-Out/Discharge Documenting (check all that apply): Patient Departure - Discharge Plan Condition: Stable Disposition: ADMITTED TO [facility] Referrals: Morgan Mccarthy MD [Primary Care Provider] - - Billing Disposition and Condition Condition: STABLE Disposition: Admitted to [facility] - Attestation Statements Document Initiated by Scribe: Yes Documenting Scribe: Sara Gil Provider For Whom Scribe is Documenting (Include Credential): Stewart Hu MD Scribe Attestation: Sara Quiroz, scribed for Stewart Hu MD on 03/27/20 at 1716. Scribe Documentation Reviewed: Yes Provider Attestation: The documentation as recorded by the scribe, Sara Gil accurately reflects the service I personally performed and the decisions made by me, Stewart Hu MD Status of Scribe Document: Viewed
--- OUTSIDE RECORDS SUMMARY | 2019-07-16 14:05 | XMS REPORT ---
:1945 Author Organization [facility] Care Team Providers Name Role Phone Unavailable Unavailable Unavailable Problems Condition Condition Condition Status Onset Resolution Last Treating Comments Name Details Category Date Date Treatment Clinician Date Acute Acute Diagnosis Active Chante pulmonary pulmonary 3-26 Carrier RN edema edema Allergies, Adverse Reactions, Alerts Allergy Allergy Status Severity Reaction(s) Onset Inactive Treating Comments Name Type Date Date Clinician Tomato Unknown Active Unknown Reaction 2017-04 Amira Suazo Unknown -03 Jonnathan [id number] Medications Ordered Filled Start Stop Current Ordering Indication Dosage Frequency Signature Comments Components Medication Medication Date Date Medication? Clinician (SIG) Name Name No Known No Known No None None None Medications Medications For This For This Patient Patient Procedures This patient has no known procedures. Results This patient has no known results.
[2019-07-16 14:10] LABS: Influenza A Molecular Negative (Negative); Influenza B Molecular Negative (Negative)
[2019-07-16 14:26] LABS: ABS Lymphocytes 0.3 10^3/ul (1.0-4.8); ABS Monocytes 0.4 10^3/ul (0-0.8); ABS Neutrophils 7.5 10^3/ul (1.5-7.7); Eosinophil % 0.2 %; Hematocrit 33 % (35-47); Hemoglobin 10.8 g/dL (12.0-16.0); Lymphocyte % 4.2 %; Mean Corpuscular HGB Conc 33 g/dL (31-36); Mean Corpuscular Hemoglobin 30 pg (27-31); Mean Corpuscular Volume 91 fL (80-97); Mean Platelet Volume 7.4 fL (7.4-10.4); Nucleated Red Blood Cells % 0.4; Platelet Count 183 10^3/uL (150-450); Red Cell Distribution Width 18 % (10-15); White Blood Count 8.3 10^3/uL (3.5-10.8)
[2019-07-16 14:49] LABS: ALT 6 U/L (7-52); AST 9 U/L (13-39); Albumin 3.7 g/dL (3.2-5.2); Alkaline Phosphatase 69 U/L (34-104); Anion Gap 11 mmol/L (2-11); Blood Urea Nitrogen 45 mg/dL (6-24); CO2 Carbon Dioxide 28 mmol/L (22-32); Calcium 9.7 mg/dL (8.6-10.3); Chloride 95 mmol/L (101-111); EGFR African American 41.2 (>60); Globulin 3.6 g/dL (2-4); Glucose 156 mg/dL (70-100); Potassium 3.9 mmol/L (3.5-5.0); Sodium 134 mmol/L (135-145); Total Protein 7.3 g/dL (6.4-8.9)
[2019-07-16 14:52] LABS: Troponin I 0.34 ng/mL (<0.03)
[2019-07-16] MEDS ORDERED: Iodixanol* (CONTRAST) 320 MG/ML 100 ML SDV IV ONE (14:59)
[2019-07-16] MEDS ORDERED: Furosemide IV* 10 MG/ML VIAL (40 MG) IV ONE (17:22)
[2019-07-16 17:55] LABS: Troponin I 0.47 ng/mL (<0.03)
[2019-07-16] MEDS ORDERED: Albuterol/Ipratropium NEB.SOL* Albuterol 2.5 MG/Ipratropium 0.5 MG 3 ML INH SCH (19:00)
[2019-07-16 19:53] LABS: Cholesterol 96 mg/dL; HDL Cholesterol 26.2 mg/dL; LDL Cholesterol 54 mg/dL; Triglycerides 77 mg/dL
--- NOTE | 2019-07-16 20:04 | HP ---
AMENDED REPORT NOW INCLUDES DESIGNATED COSIGNER - ESIGNED BEFORE ADJUSTMENT* ADMISSION HISTORY AND PHYSICAL: DATE OF ADMISSION: 07/16/19 PRIMARY CARE PHYSICIANS: Dr. Mccarthy and Dr. Green. PROVIDER: Ciara Rodas NP. ATTENDING PHYSICIAN: Dr. Lazar.* (DICTATED BY CIARA RODAS NP) CODE STATUS CONVERSATION: The patient wishes to be a DNR and DNI. CHIEF COMPLAINT: Shortness of breath. HISTORY OF PRESENT ILLNESS: This is a 73-year-old female with a past medical history significant for HFpEF; AFib; and COPD, on 3 L of continuous O2, who arrived to the emergency room on 07/16/19 reporting shortness of breath. She was released from [facility] this past 07/13/19, after receiving rehab status post a fall and was released to her sister's house, and starting yesterday morning, she woke up "not feeling right." She stated that she felt short of breath with movement. Somebody from [facility] had come to see her and taken her O2 sat and was concerned about the number, stating that it was too low and attempted to have her stand up and walk around to see if it improved; however, when she stood up, she felt dizzy and "out of control. " At that time, she denied any tunnel vision. She has maintained that she has not had any chest pain or pressure. She has been compliant with wearing her 3 L of oxygen at all times and has taken all of her medications except for yesterday. She denies any sick contacts that she is aware of. She has a chronic cough, but over the past couple of days the coughing has increased but with no sputum production. She is feeling increasingly short of breath above her baseline. She has had good appetite. She has been eating better since being discharged from [facility] and drinking more. She has a chronic indwelling Davis catheter that she has had for the past 3 months. It is draining clear yellow urine and has had no troubles with that. She also stated that she had abdominal discomfort starting about a few weeks ago that felt like a band across the top of her stomach. Nothing seems to make it worse. Tylenol makes it feel better. She has had no associated nausea, vomiting, or changes in her bowel habits or her bladder. In the emergency room, labs were drawn. She was tested for COVID-19, for which we are awaiting results and has been placed on droplet precautions. They also performed a chest x-ray and a chest/ thorax CTA and EKG, at which point hospitalists were asked to evaluate the patient for admission. PAST MEDICAL HISTORY: 1. HFpEF. 2. GERD. 3. AFib, on apixaban. 4. Osteoarthritis. 5. COPD, on 3 L of continuous O2. 6. Hypertension. 7. Cataracts. 8. Kidney stones. 9. Tobacco use. 10. Chronic kidney disease. 11. Cerebral aneurysm. 12. CVA. 13. Recurrent right pleural effusion. 14. Obstructive sleep apnea. PAST SURGICAL HISTORY: 1. Spinal surgery. 2. Appendectomy. 3. Cholecystectomy. 4. Hysterectomy. 5. COTTON ROLL PACKER shunt and clipping of cerebral aneurysm. HOME MEDICATIONS: 1. Acetaminophen 1000 mg p.o. q.8 hours p.r.n. 2. Metoprolol tartrate 50 mg p.o. b.i.d. with meals. 3. Magnesium oxide 400 mg p.o. daily. 4. Furosemide 40 mg p.o. daily. 5. Ferrous sulfate 325 mg p.o. daily. 6. Cholestyramine resin 4 g p.o. q.p.m. 7. Apixaban 5 mg p.o. b.i.d. 8. Alendronate 70 mg p.o. weekly. 9. Anoro Ellipta device 62.5/25 one puff inhalation daily. 10. Montelukast sodium 10 mg p.o. daily. 11. Cyanocobalamin 1000 mcg p.o. daily. 12. Albuterol inhaler 2 puffs inhalation q.4 hours p.r.n. 13. Ipratropium/albuterol sulfate 0.5/3, 3 mL inhalation q.i.d. 14. Metolazone 5 mg p.o. 3 times a week. 15. Polyethylene glycol 17 g p.o. daily. 16. Omeprazole 20 mg p.o. daily. 17. Nicotine patch 7 mg 1 patch transdermally daily. 18. Citalopram 50 mg p.o. daily. ALLERGIES: TOMATO. FAMILY HISTORY: Father at age 88 due to dementia. He also had a history of hypertension and diabetes. Mother had a history of heart failure, hypertension, and an NE. SOCIAL HISTORY: She is a former smoker, used to be 1 pack per day for 40 years. She quit smoking this year. She drinks only on [place] and denies any other substance use, and she is retired, living with her sister. REVIEW OF SYSTEMS: A 12-point review of systems was performed. Please see HPI for pertinent positives and negatives. PHYSICAL EXAMINATION GENERAL: This is a well-developed woman seen resting in the bed. She is pale, but appears to be in no acute distress. VITAL SIGNS: 98.1 Fahrenheit, 84 pulse, 18 respirations, 90% oxygen on 3 L, and 128/74 blood pressure. HEENT: Conjunctivae pink and moist. PERRLA. EOMs intact. Oropharynx clear. Mucous membranes are dry. NECK: Supple. RESPIRATORY: Lung sounds diminished, but clear throughout bilaterally with no accessory muscle use noted, on 3 L of oxygen via nasal cannula. CARDIAC: Heart rate irregular. No murmurs, gallops, or rubs appreciated. She has AFib on the monitor. No carotid bruits. No JVD. ABDOMEN: Large, soft, nontender, nondistended with positive bowel sounds x4. GENITOURINARY: Indwelling Davis catheter in place, draining medium to dark yellow urine and adequate amounts with no sediments or clots noted. MUSCULOSKELETAL: No clubbing or cyanosis of the digits. NEUROLOGIC: Sensation intact to light touch throughout. No focal deficits appreciated. PSYCH: She is alert and oriented x4. Thought content organized. SKIN: She has got discoloration to bilateral lower extremities and a small pinpoint open wound to the left heel. There was a scant amount of yellow drainage to the Telfa on the old dressing, though wound edges are benign and no foul odor. There is no additional warmth to her foot or bilateral legs. DIAGNOSTIC STUDIES/LAB DATA: She had a chest x-ray that shows loculated right pleural effusion and chest/thorax CTA which showed: 1. A 2.1 cm nodule in the right upper lobe, which is suspected to be medical service representative of rounded atelectasis; however, this should either be evaluated with a PET-CT or chest CT in 3 to 6 months to further document stability. 2. No pulmonary embolism is identified. 3. Cardiomegaly with reflux of contrast into the hepatic veins suggestive of right- sided heart failure, interstitial pulmonary edema with small bilateral pleural effusions. 4. Coronary artery calcifications, extensive atherosclerotic disease. 5. Mild biapical centrilobular emphysema. 6. The mediastinal lymph nodes are similarly increased in number and at the upper limits of normal size. 7. Old compression fractures. Pertinent lab data: WBCs 8.3, RBCs 3.6, hemoglobin 10.8, hematocrit 33. Venous blood gas: O2 saturation was 66.2% and venous blood gas base excess was 4.8. Sodium 134, chloride 95, BUN 45, creatinine 1.50, BUN/creatinine ratio 30, glucose 156. Total bilirubin 5.7. AST 9, ALT 6. Troponin 0.34, B natriuretic peptide 849. Negative for influenza A or B. Pending COVID-19 testing. ASSESSMENT AND PLAN: My impression is that this is a 73-year-old female with a past medical history significant for heart failure with preserved ejection fraction, chronic obstructive pulmonary disease, and atrial fibrillation, who is admitted on 07/16/19 for congestive heart failure exacerbation, chronic obstructive pulmonary disease exacerbation, and mild acute kidney injury. 1. Chronic obstructive pulmonary disease exacerbation. This is as evidenced by increasing shortness of breath and increasing cough from her baseline as well as increased oxygen demand. I feel that this is likely triggered due to her congestive heart failure exacerbation. The CTA ruled out a pulmonary embolism. We are to titrate her O2 as needed to keep her sats above 90% and she may continue her Anoro, Singulair, and her ipratropium/albuterol inhaler. I feel that this will improve once we treat the underlying problem. At this time, I am not inclined to give any prednisone as I did not hear any wheezing and she is not acutely short of breath at rest. Also, we are testing her for COVID-19 and I am disinclined to give her any prednisone until the test comes back. 2. Congestive heart failure exacerbation. This is as evidenced by bilateral pleural effusions noted on the CTA and reflux of contrast into the hepatic veins as noted on the CTA, as well as increased shortness of breath and elevated BNP above her normal. She stated that when she takes her Lasix at home , it does not cause any increase in voiding except unless she takes her metolazone prior to it, which she only takes 3 times a week. I will give her 40 mg of IV Lasix this afternoon as well as another 40 of IV Lasix in the morning and reevaluate the need for additional IV intervention. She is also to have daily weights. 3. Acute kidney injury. Her creatinine is slightly bumped above normal. I feel like this is likely prerenal and as we diurese her ,I expect to see the creatinine number come down. 4. Elevated troponin. Initial trop was 0.34 but she lacked any classic chest pain or EKG changes. Will trend every 3 hours until trops decrease. 5. Anemia. This is likely due to anemia of chronic disease or inflammation. Her H and H have improved since April of this year, but are still below her baseline. As she has not had any recent workup in the past 6 years, I have ordered a folate, B12, and iron studies for the a.m. She is also to continue her daily iron supplements. 6. Atrial fibrillation. She is in atrial fibrillation on the monitor. She is to continue her apixaban and metoprolol. 7. History of gallbladder removal. She is to continue her cholestyramine resin every night. 8. Gastroesophageal reflux disease. She may continue her omeprazole. There are no signs or symptoms of indigestion at this time. 9. Depression. She may continue her citalopram. 10. DVT prophylaxis: She is to continue her apixaban. 11. Code status is DNR. 11. Disposition: She is to be admitted inpatient to [address] [place] [address]. 12. Condition is guarded. TIME SPENT: Time spent on the patient is about 60 minutes with 30 of that spent [id number]. CIARA RODAS, RUSTIC TERRAZZO SETTER [id number]/CPS #: [id number] DOREEN
[2019-07-16] MEDS ORDERED: Aspirin TAB* 325 MG PO ONE (20:20)
[2019-07-16] MEDS ORDERED: Albuterol 2.5 MG/3 ML NEB.SOL* (0.083%) INH PRN (20:40)
[2019-07-16] MEDS ORDERED: Albuterol/Ipratropium NEB.SOL* Albuterol 2.5 MG/Ipratropium 0.5 MG 3 ML INH PRN (20:40)
[2019-07-16] MEDS: Metoprolol Tartrate TAB* 50 mg PO SCH (21:15)
[2019-07-16] MEDS: Apixaban* 5 MG TAB PO SCH (21:16)
[2019-07-16] MEDS: Cholestyramine Resin* 4 GM POWDER PO SCH (21:16)
[2019-07-16 21:37] LABS: Troponin I 0.37 ng/mL (<0.03)
[2019-07-17 05:46] LABS: ABS Eosinophils 0.1 10^3/ul (0-0.6); ABS Lymphocytes 0.4 10^3/ul (1.0-4.8); ABS Monocytes 0.3 10^3/ul (0-0.8); ABS Neutrophils 4.5 10^3/ul (1.5-7.7); Eosinophil % 1.8 %; Hematocrit 29 % (35-47); Hemoglobin 9.7 g/dL (12.0-16.0); Lymphocyte % 7.6 %; Mean Corpuscular HGB Conc 33 g/dL (31-36); Mean Corpuscular Hemoglobin 30 pg (27-31); Mean Corpuscular Volume 91 fL (80-97); Mean Platelet Volume 7.3 fL (7.4-10.4); Nucleated Red Blood Cells % 0.4; Platelet Count 167 10^3/uL (150-450); Red Blood Count 3.19 10^6 /uL (3.70-4.87); Red Cell Distribution Width 18 % (10-15); White Blood Count 5.4 10^3/uL (3.5-10.8)
[2019-07-17 06:00] LABS: % Iron Saturation 32 % (15-55); Anion Gap 8 mmol/L (2-11); BUN/Creatinine Ratio 31.3 (8-20); Blood Urea Nitrogen 42 mg/dL (6-24); CO2 Carbon Dioxide 32 mmol/L (22-32); Calcium 9.2 mg/dL (8.6-10.3); Chloride 96 mmol/L (101-111); EGFR African American 46.9 (>60); EGFR Non-African American 38.8 (>60); Glucose 120 mg/dL (70-100); Iron 76 ug/dL (50-212); Potassium 3.3 mmol/L (3.5-5.0); Sodium 136 mmol/L (135-145); Total Iron Binding Capacity 235 mcg/dL (250-450); Transferrin 168 mg/dL (203-362)
[2019-07-17 06:23] LABS: Ferritin 410.6 ng/mL (11-307)
[2019-07-17 06:26] LABS: Folate 8.31 ng/mL (>3.99)
[2019-07-17] MEDS ORDERED: Albuterol 2.5 MG/3 ML NEB.SOL* (0.083%) INH SCH (07:00)
[2019-07-17] MEDS ORDERED: Potassium Chloride* LIQUID 20 MEQ/15 ML UDC PO ONE (07:07)
[2019-07-17] MEDS: Polyethylene Glycol 3350* 17 GM PACKET PO SCH (07:45)
[2019-07-17] MEDS: Metolazone TAB* 5 MG PO SCH (07:46)
[2019-07-17] MEDS: Cyanocobalamin TAB* 500 MCG PO SCH (07:46)
[2019-07-17] MEDS: Ferrous Sulfate TAB* 325 MG PO SCH (07:46)
[2019-07-17] MEDS: Pantoprazole TAB * 40 MG TAB PO SCH (07:46)
[2019-07-17] MEDS: Montelukast Sodium TAB* 10 MG PO SCH (07:46)
[2019-07-17] MEDS: Apixaban* 5 MG TAB PO SCH ×2 (07:46→22:16)
[2019-07-17] MEDS: Citalopram TAB* 20 MG PO SCH (07:46)
[2019-07-17] MEDS: Metoprolol Tartrate TAB* 50 mg PO SCH ×2 (07:46→15:54)
[2019-07-17] MEDS ORDERED: Albuterol 2.5 MG/3 ML NEB.SOL* (0.083%) INH PRN (07:47)
[2019-07-17] MEDS: Nicotine PATCH 7 MG/24 HR* PATCH TRANSDERM SCH (08:07)
[2019-07-17] MEDS: Tiotropium Brom/Olodaterol MDI INH SCH (08:10)
[2019-07-17] MEDS ORDERED: Furosemide IV* 10 MG/ML VIAL (40 MG) IV SCH (09:00)
[2019-07-17] MEDS ORDERED: Citalopram TAB* 10 MG PO SCH (09:00)
[2019-07-17] MEDS ORDERED: Magnesium Oxide TAB* 400 MG PO SCH (09:00)
--- NOTE | 2019-07-17 10:48 | PN ---
Subjective Date of Service: 07/17/19 Interval History: Patient feels as if her respiratory status is improved. Patient has not been up and around walking. Patient has no had nay chest pain since she came into the hospital. Patient denies F/C, N/V, abdominal pain, diarrhea, palpitations, or other pain. Family History: Unchanged from Admission Social History: Unchanged from Admission Past Medical History: Unchanged from Admission Objective Active Medications: Acetaminophen (Tylenol Tab*) 650 mg PO Q4H PRN PRN Reason: MILD PAIN or TEMP > 100.4 Albuterol (Ventolin 2.5 Mg/3 Ml Neb.Cherie*) 2.5 mg INH Q4H PRN PRN Reason: SOB/WHEEZING Albuterol/Ipratropium (Duoneb (Albuterol 2.5 Mg/Ipratropium 0.5 Mg)) 1 neb INH Q4H PRN PRN Reason: SOB/WHEEZING Apixaban (Eliquis*) 5 mg PO BID [facility] Last Admin: 07/17/19 07:46 Dose: 5 mg Cholestyramine Resin (Questran*) 4 gm PO BEDTIME [facility] Last Admin: 07/16/19 21:16 Dose: Not Given Citalopram Hydrobromide (Celexa Tab*) 20 mg PO DAILY [facility] Last Admin: 07/17/19 07:46 Dose: 20 mg Cyanocobalamin (Vitamin B12 Tab*) 1,000 mcg PO DAILY [facility] Last Admin: 07/17/19 07:46 Dose: 1,000 mcg Ferrous Sulfate (Ferrous Sulfate Tab*) 325 mg PO DAILY [facility] Last Admin: 07/17/19 07:46 Dose: 325 mg Furosemide (Lasix Iv*) 40 mg IV 0900,1500 [facility] Magnesium Oxide (Magox 400 Tab*) 400 mg PO DAILY [facility] Last Admin: 07/17/19 07:47 Dose: 400 mg Metolazone (Zaroxolyn Tab*) 5 mg PO DAILY@0830 [facility] Last Admin: 07/17/19 07:46 Dose: 5 mg Metoprolol Tartrate (Lopressor Tab*) 50 mg PO BID WITH MEALS [facility] Last Admin: 07/17/19 07:46 Dose: 50 mg Montelukast Sodium (Singulair Tab*) 10 mg PO DAILY [facility] Last Admin: 07/17/19 07:46 Dose: 10 mg Nicotine (Nicotine Patch 7 Mg/24 Hr*) 1 patch TRANSDERM DAILY [facility] Last Admin: 07/17/19 08:07 Dose: 1 patch Pantoprazole Sodium (Protonix Tab*) 40 mg PO DAILY [facility] Last Admin: 07/17/19 07:46 Dose: 40 mg Polyethylene Glycol/Electrolytes (Miralax (17 Gm Dose [place])) 17 gm PO DAILY [facility] Last Admin: 07/17/19 07:45 Dose: 17 gm Tiotropium [place]/Olodaterol (Stiolto Respimat Inh [place] (60 Puff)) 2 puff INH DAILY [facility] Last Admin: 07/17/19 08:10 Dose: 2 puff Vital Signs - 8 hr 07/17/19 07/17/19 07/17/19 03:05 07:15 08:00 Temperature 98.6 F 98.1 F Pulse Rate 81 58 73 Respiratory 20 18 18 Rate Blood Pressure 117/66 118/42 (mmHg) O2 Sat by Pulse 96 93 94 Oximetry 07/17/19 08:14 Temperature Pulse Rate 86 Respiratory 18 Rate Blood Pressure (mmHg) O2 Sat by Pulse 94 Oximetry Oxygen Devices in Use Now: Nasal Cannula Appearance: Patient is a 73yo female who appears stated age and is sitting in the bed in [facility]. Eyes: No Scleral Icterus, PERRLA Ears/Nose/Mouth/Throat: NL Teeth, Lips, Gums, Clear Oropharnyx, Mucous Membranes Moist Neck: NL Appearance and Movements; NL JVP, Trachea Midline Respiratory: Symmetrical Chest Expansion and Respiratory Effort, - - Rales in Bases. Cardiovascular: NL Sounds; No Murmurs; No JVD, RRR, - - 1+ LE edema. Abdominal: NL Sounds; No Tenderness; No Distention, No Hepatosplenomegaly Lymphatic: No Cervical Adenopathy Extremities: No Edema, No Clubbing, Cyanosis Skin: No Rash or Ulcers, No Nodules or Sclerosis Neurological: Alert and Oriented x 3, NL Sensation, NL Muscle Strength and Tone , - - CN II-XII intact. Lines/Tubes/Other Access: Clean, Dry and Intact Tracheostomy Result Diagrams: 07/17/19 05:27 07/17/19 05:27 Assess/Plan/Problems-Billing Assessment: Patient is a 73yo female with a PMH for CHF, CKD, COPD on 3L, here with worsening SOB and hypoxia with likely heart failure exacerbation. Patient is improving on diuresis and is being ruled out for COVID. - Patient Problems (1) Acute on chronic respiratory failure with hypoxia Current Visit: No Status: Acute Priority: Medium Code(s): J96.21 - ACUTE AND CHRONIC RESPIRATORY FAILURE WITH HYPOXIA SNOMED Code(s): 04410400 Comment: - Worsening hypoxia over baseline (Wear 3L all times at home) - Now on 4L, may be able to wean. - Likely due to CHF, possible COPD exacerbation as well. R/O COVID (2) CHF (congestive heart failure) Current Visit: No Status: Acute Code(s): I50.9 - HEART FAILURE, UNSPECIFIED SNOMED Code(s): 57230352 Comment: - HFpEF at most recent Echo - Diuresis with Lasix and Metolazone - Elevated Trop most likely due to CHF, no signs of ACS - Associated LAKSHMI likely due to fluid overload. 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 Continue Spiriva, nebs, singulair - No indication for steroids. 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
[2019-07-17] MEDS: Nystatin TOP POWDER* 15 GM BTL TOPICAL SCH ×2 (12:28→20:35)
[2019-07-17 14:39] LABS: Urine Appearance Cloudy; Urine Bilirubin Negative (Negative); Urine Blood 3+ (Negative); Urine Color Yellow; Urine Glucose Negative (Negative); Urine Ketones Negative (Negative); Urine Nitrite Positive (Negative); Urine Protein Negative (Negative); Urine Specific Gravity 1.009 (1.010-1.030); Urine Urobilinogen Negative (Negative)
[2019-07-17 14:41] LABS: Urine Bacteria Absent (Absent); Urine Red Blood Cell 3+(>10/hpf) (Absent); Urine White Blood Cell 3+(>20/hpf) (Absent)
[2019-07-17] MEDS: cefTRIAXone(*) 1 GM in NS 0.9% 50 ML* 50 ML IVPB SCH (15:53)
[2019-07-17] MEDS: Furosemide IV* 10 MG/ML VIAL (40 MG) IV SCH (15:54)
[2019-07-17] MEDS: Acetaminophen TAB* 325 MG PO PRN (18:05)
[2019-07-17] MEDS: Cholestyramine Resin* 4 GM POWDER PO SCH (22:17)
[2019-07-18 06:38] LABS: ABS Basophils 0.1 10^3/ul (0-0.2); ABS Eosinophils 0.1 10^3/ul (0-0.6); ABS Lymphocytes 0.3 10^3/ul (1.0-4.8); ABS Monocytes 0.4 10^3/ul (0-0.8); ABS Neutrophils 5.4 10^3/ul (1.5-7.7); Hematocrit 31 % (35-47); Hemoglobin 10.5 g/dL (12.0-16.0); Lymphocyte % 4.7 %; Mean Corpuscular HGB Conc 34 g/dL (31-36); Mean Corpuscular Hemoglobin 31 pg (27-31); Mean Corpuscular Volume 92 fL (80-97); Mean Platelet Volume 7.7 fL (7.4-10.4); Nucleated Red Blood Cells % 0.1; Platelet Count 164 10^3/uL (150-450); Red Blood Count 3.35 10^6 /uL (3.70-4.87); Red Cell Distribution Width 18 % (10-15); White Blood Count 6.3 10^3/uL (3.5-10.8)
[2019-07-18 06:46] LABS: BUN/Creatinine Ratio 31.7 (8-20); Calcium 9.7 mg/dL (8.6-10.3); EGFR African American 43.9 (>60); EGFR Non-African American 36.3 (>60); Magnesium 1.2 mg/dL (1.9-2.7); Potassium 3.5 mmol/L (3.5-5.0)
[2019-07-18] MEDS ORDERED: Magnesium Sulf 4 GM/100 ML IV* 4,000 MG/100 ML BAG IVPB ONE (07:06)
[2019-07-18] MEDS: Tiotropium Brom/Olodaterol MDI INH SCH (07:38)
[2019-07-18] MEDS: Metoprolol Tartrate TAB* 25 MG PO SCH ×2 (09:11→17:13)
[2019-07-18] MEDS: Montelukast Sodium TAB* 10 MG PO SCH (09:12)
[2019-07-18] MEDS: Pantoprazole TAB * 40 MG TAB PO SCH (09:12)
[2019-07-18] MEDS: Ferrous Sulfate TAB* 325 MG PO SCH (09:13)
[2019-07-18] MEDS: Cyanocobalamin TAB* 500 MCG PO SCH (09:13)
[2019-07-18] MEDS: Citalopram TAB* 20 MG PO SCH (09:14)
[2019-07-18] MEDS: Apixaban* 5 MG TAB PO SCH ×2 (09:14→20:37)
[2019-07-18] MEDS: Furosemide IV* 10 MG/ML VIAL (40 MG) IV SCH (09:15)
[2019-07-18] MEDS: Metolazone TAB* 5 MG PO SCH (09:15)
[2019-07-18] MEDS: Nicotine PATCH 7 MG/24 HR* PATCH TRANSDERM SCH (09:15)
[2019-07-18] MEDS: Polyethylene Glycol 3350* 17 GM PACKET PO SCH (09:16)
[2019-07-18] MEDS: Magnesium Oxide TAB* 400 MG PO SCH (09:21)
[2019-07-18] MEDS: Nystatin TOP POWDER* 15 GM BTL TOPICAL SCH ×3 (09:23→20:38)
--- NOTE | 2019-07-18 14:03 | PN ---
Subjective Date of Service: 07/18/19 Interval History: Patient is feeling better today with her breathing. patient doesn't have much energy. Patient denies CP, F/C, N/V, abdominal pain, diarrhea, dizziness, or other pain. Patient feels very dry in her mouth. Family History: Unchanged from Admission Social History: Unchanged from Admission Past Medical History: Unchanged from Admission Objective Active Medications: Acetaminophen (Tylenol Tab*) 650 mg PO Q4H PRN PRN Reason: MILD PAIN or TEMP > 100.4 Last Admin: 07/17/19 18:05 Dose: 650 mg Albuterol (Ventolin 2.5 Mg/3 Ml Neb.Cherie*) 2.5 mg INH Q4H PRN PRN Reason: SOB/WHEEZING Albuterol/Ipratropium (Duoneb (Albuterol 2.5 Mg/Ipratropium 0.5 Mg)) 1 neb INH Q4H PRN PRN Reason: SOB/WHEEZING Apixaban (Eliquis*) 5 mg PO BID [facility] Last Admin: 07/18/19 09:14 Dose: 5 mg Cholestyramine Resin (Questran*) 4 gm PO BEDTIME [facility] Last Admin: 07/17/19 22:17 Dose: Not Given Citalopram Hydrobromide (Celexa Tab*) 20 mg PO DAILY [facility] Last Admin: 07/18/19 09:14 Dose: 20 mg Cyanocobalamin (Vitamin B12 Tab*) 1,000 mcg PO DAILY [facility] Last Admin: 07/18/19 09:13 Dose: 1,000 mcg Ferrous Sulfate (Ferrous Sulfate Tab*) 325 mg PO DAILY [facility] Last Admin: 07/18/19 09:13 Dose: 325 mg Furosemide (Lasix Iv*) 40 mg IV 0900,1500 [facility] Last Admin: 07/18/19 09:15 Dose: 40 mg Ceftriaxone Sodium 1 gm/ (Sodium Chloride) 50 mls @ 100 mls/hr IVPB Q24H [facility] Last Admin: 07/17/19 15:53 Dose: 100 mls/hr Magnesium Oxide (Magox 400 Tab*) 800 mg PO DAILY [facility] Last Admin: 07/18/19 09:21 Dose: 800 mg Metolazone (Zaroxolyn Tab*) 5 mg PO DAILY@0830 [facility] Last Admin: 07/18/19 09:15 Dose: 5 mg Metoprolol Tartrate (Lopressor Tab*) 25 mg PO BID WITH MEALS [facility] Last Admin: 07/18/19 09:11 Dose: 25 mg Montelukast Sodium (Singulair Tab*) 10 mg PO DAILY [facility] Last Admin: 07/18/19 09:12 Dose: 10 mg Nicotine (Nicotine Patch 7 Mg/24 Hr*) 1 patch TRANSDERM DAILY [facility] Last Admin: 07/18/19 09:15 Dose: 1 patch Nystatin (Nystatin Top Powder*) 1 applic TOPICAL TID [facility] Last Admin: 07/18/19 09:23 Dose: 1 applic Pantoprazole Sodium (Protonix Tab*) 40 mg PO DAILY [facility] Last Admin: 07/18/19 09:12 Dose: 40 mg Polyethylene Glycol/Electrolytes (Miralax (17 Gm Dose [place])) 17 gm PO DAILY [facility] Last Admin: 07/18/19 09:16 Dose: 17 gm Tiotropium [place]/Olodaterol (Stiolto Respimat Inh [place] (60 Puff)) 2 puff INH DAILY [facility] Last Admin: 07/18/19 07:38 Dose: 2 puff Vital Signs - 8 hr 07/18/19 07/18/19 07/18/19 08:00 09:08 11:15 Temperature 97.5 F 97.8 F Pulse Rate 71 56 Respiratory 24 20 24 Rate Blood Pressure 104/79 103/49 (mmHg) O2 Sat by Pulse 92 92 Oximetry Oxygen Devices in Use Now: Nasal Cannula Appearance: Patient is a 73yo female who appears stated age and is sitting in the bed in [facility]. Eyes: No Scleral Icterus, PERRLA Ears/Nose/Mouth/Throat: NL Teeth, Lips, Gums, Clear Oropharnyx, Mucous Membranes Moist Neck: NL Appearance and Movements; NL JVP, Trachea Midline Respiratory: Symmetrical Chest Expansion and Respiratory Effort, Clear to Auscultation Cardiovascular: NL Sounds; No Murmurs; No JVD, RRR, - - 1+ B/L LE edema. Abdominal: NL Sounds; No Tenderness; No Distention, No Hepatosplenomegaly Lymphatic: No Cervical Adenopathy Extremities: No Clubbing, Cyanosis Skin: No Rash or Ulcers, No Nodules or Sclerosis Neurological: Alert and Oriented x 3, NL Sensation, NL Muscle Strength and Tone , - - CN II-XII intact. Result Diagrams: 07/18/19 06:01 07/18/19 06:01 Microbiology and Other Data: Microbiology 07/16/19 13:33 Aerobic Blood Culture - Preliminary Blood Venous No Growth Day 2 Anaerobic Blood Culture - Preliminary No Growth Day 2 07/17/19 12:30 Urine Culture - Preliminary Urine Proteus Penneri 07/16/19 14:12 Aerobic Blood Culture - Preliminary Blood Venous No Growth Day 1 Anaerobic Blood Culture - Preliminary No Growth Day 1 Assess/Plan/Problems-Billing Assessment: Patient is a 73yo female with a PMH for CHF, CKD, COPD on 3L, here with worsening SOB and hypoxia with likely heart failure exacerbation. Patient is improving on diuresis and is being ruled out for COVID. - Patient Problems (1) Acute on chronic respiratory failure with hypoxia Current Visit: No Status: Acute Priority: Medium Code(s): J96.21 - ACUTE AND CHRONIC RESPIRATORY FAILURE WITH HYPOXIA SNOMED Code(s): 66435360 Comment: - Worsening hypoxia over baseline (Wear 3L all times at home) - Now on 4L - Likely due to CHF, possible COPD exacerbation as well. COVID R/O (2) CHF (congestive heart failure) Current Visit: No Status: Acute Code(s): I50.9 - HEART FAILURE, UNSPECIFIED SNOMED Code(s): 08717232 Comment: - HFpEF at most recent Echo - Diuresis with Lasix and Metolazone, decrease dose and monitor. - Elevated Trop most likely due to CHF, no signs of ACS - Associated LAKSHMI likely due to fluid overload. 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 Continue Spiriva, nebs, singulair - No indication for steroids. 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 - Continue Ceftriaxone 07/16-? Likely 7 day course. - Follow up Urology outpatient for possible jimenez removal. (10) DNR (do not resuscitate) Current Visit: No Status: Acute (11) DVT prophylaxis Current Visit: No Status: Acute Code(s): VSM6823 - SNOMED Code(s): 538861677 Comment: -Eliquis Status and Disposition: Inpatient for CHF Exacerbation. Hopefully D/C Back to [facility] in next 1-2 days.
[2019-07-18] MEDS: Acetaminophen TAB* 325 MG PO PRN (14:06)
[2019-07-18] MEDS: cefTRIAXone(*) 1 GM in NS 0.9% 50 ML* 50 ML IVPB SCH (15:50)
[2019-07-18] MEDS: Cholestyramine Resin* 4 GM POWDER PO SCH (20:37)
[2019-07-19] MEDS: Tiotropium Brom/Olodaterol MDI INH SCH (07:44)
[2019-07-19] MEDS ORDERED: Metolazone TAB* 5 MG PO SCH (08:30)
[2019-07-19] MEDS: Citalopram TAB* 20 MG PO SCH (08:43)
[2019-07-19] MEDS: Montelukast Sodium TAB* 10 MG PO SCH (08:43)
[2019-07-19] MEDS: Apixaban* 5 MG TAB PO SCH ×2 (08:43→20:41)
[2019-07-19] MEDS: Cyanocobalamin TAB* 500 MCG PO SCH (08:43)
[2019-07-19] MEDS: Pantoprazole TAB * 40 MG TAB PO SCH (08:43)
[2019-07-19] MEDS: Nystatin TOP POWDER* 15 GM BTL TOPICAL SCH ×3 (08:44→20:41)
[2019-07-19] MEDS: Nicotine PATCH 7 MG/24 HR* PATCH TRANSDERM SCH (08:44)
[2019-07-19] MEDS: Metoprolol Tartrate TAB* 25 MG PO SCH ×2 (08:44→16:53)
[2019-07-19] MEDS: Polyethylene Glycol 3350* 17 GM PACKET PO SCH ×2 (08:44→08:52)
[2019-07-19] MEDS: Ferrous Sulfate TAB* 325 MG PO SCH (08:44)
[2019-07-19] MEDS: Magnesium Oxide TAB* 400 MG PO SCH (08:45)
[2019-07-19] MEDS: Acetaminophen TAB* 325 MG PO PRN ×2 (08:57→16:53)
[2019-07-19] MEDS ORDERED: Furosemide IV* 10 MG/ML VIAL (40 MG) IV SCH (09:00)
[2019-07-19 11:07] LABS: ABS Eosinophils 0.2 10^3/ul (0-0.6); ABS Lymphocytes 0.2 10^3/ul (1.0-4.8); ABS Monocytes 0.4 10^3/ul (0-0.8); ABS Neutrophils 7.1 10^3/ul (1.5-7.7); Eosinophil % 2.1 %; Hematocrit 33 % (35-47); Hemoglobin 10.9 g/dL (12.0-16.0); Mean Corpuscular HGB Conc 33 g/dL (31-36); Mean Corpuscular Hemoglobin 31 pg (27-31); Mean Corpuscular Volume 91 fL (80-97); Mean Platelet Volume 7.4 fL (7.4-10.4); Nucleated Red Blood Cells % 0.1; Platelet Count 174 10^3/uL (150-450); Red Blood Count 3.59 10^6 /uL (3.70-4.87); Red Cell Distribution Width 18 % (10-15); White Blood Count 7.9 10^3/uL (3.5-10.8)
[2019-07-19 11:27] LABS: BUN/Creatinine Ratio 30.7 (8-20); EGFR African American 49.9 (>60); EGFR Non-African American 41.2 (>60); Magnesium 1.9 mg/dL (1.9-2.7); Potassium 3.6 mmol/L (3.5-5.0)
[2019-07-19] MEDS: cefTRIAXone(*) 1 GM in NS 0.9% 50 ML* 50 ML IVPB SCH (15:30)
--- NOTE | 2019-07-19 16:29 | PN ---
Subjective Date of Service: 07/19/19 Interval History: Breathing much better today. Patient able to walk a significant distance with PT and nursing staff. Patient denies CP, SOB, Dizziness, Palpitations, abdominal pain, diarrhea, or other pain. Patient anxious to go home. Family History: Unchanged from Admission Social History: Unchanged from Admission Past Medical History: Unchanged from Admission Objective Active Medications: Acetaminophen (Tylenol Tab*) 650 mg PO Q4H PRN PRN Reason: MILD PAIN or TEMP > 100.4 Last Admin: 07/19/19 08:57 Dose: 650 mg Albuterol (Ventolin 2.5 Mg/3 Ml Neb.Cherie*) 2.5 mg INH Q4H PRN PRN Reason: SOB/WHEEZING Albuterol/Ipratropium (Duoneb (Albuterol 2.5 Mg/Ipratropium 0.5 Mg)) 1 neb INH Q4H PRN PRN Reason: SOB/WHEEZING Apixaban (Eliquis*) 5 mg PO BID [facility] Last Admin: 07/19/19 08:43 Dose: 5 mg Cefuroxime Axetil (Ceftin 250 Mg Tab) 250 mg PO BID [facility] Cholestyramine Resin (Questran*) 4 gm PO BEDTIME [facility] Last Admin: 07/18/19 20:37 Dose: 4 gm Citalopram Hydrobromide (Celexa Tab*) 20 mg PO DAILY [facility] Last Admin: 07/19/19 08:43 Dose: 20 mg Cyanocobalamin (Vitamin B12 Tab*) 1,000 mcg PO DAILY [facility] Last Admin: 07/19/19 08:43 Dose: 1,000 mcg Ferrous Sulfate (Ferrous Sulfate Tab*) 325 mg PO DAILY [facility] Last Admin: 07/19/19 08:44 Dose: 325 mg Magnesium Oxide (Magox 400 Tab*) 800 mg PO DAILY [facility] Last Admin: 07/19/19 08:45 Dose: 800 mg Metolazone (Zaroxolyn Tab*) 5 mg PO MOWEFR@0830 [facility] Last Admin: 07/19/19 08:49 Dose: 5 mg Metoprolol Tartrate (Lopressor Tab*) 25 mg PO BID WITH MEALS [facility] Last Admin: 07/19/19 08:44 Dose: 25 mg Montelukast Sodium (Singulair Tab*) 10 mg PO DAILY [facility] Last Admin: 07/19/19 08:43 Dose: 10 mg Nicotine (Nicotine Patch 7 Mg/24 Hr*) 1 patch TRANSDERM DAILY [facility] Last Admin: 07/19/19 08:44 Dose: 1 patch Nystatin (Nystatin Top Powder*) 1 applic TOPICAL TID [facility] Last Admin: 07/19/19 15:30 Dose: 1 applic Pantoprazole Sodium (Protonix Tab*) 40 mg PO DAILY [facility] Last Admin: 07/19/19 08:43 Dose: 40 mg Polyethylene Glycol/Electrolytes (Miralax (17 Gm Dose [place])) 17 gm PO DAILY [facility] Last Admin: 07/19/19 08:52 Dose: Not Given Tiotropium [place]/Olodaterol (Stiolto Respimat Inh [place] (60 Puff)) 2 puff INH DAILY [facility] Last Admin: 07/19/19 07:44 Dose: 2 puff Torsemide (Demadex*) 20 mg PO DAILY [facility] Vital Signs - 8 hr 07/19/19 07/19/19 07/19/19 10:02 11:38 15:38 Temperature 97.6 F 97.0 F Pulse Rate 72 61 66 Respiratory 16 20 20 Rate Blood Pressure 106/49 100/60 (mmHg) O2 Sat by Pulse 94 93 99 Oximetry Oxygen Devices in Use Now: Nasal Cannula Appearance: Patient is a 73yo female who appears stated age and is sitting in the bed in [facility]. Eyes: No Scleral Icterus, PERRLA Ears/Nose/Mouth/Throat: NL Teeth, Lips, Gums, Clear Oropharnyx, Mucous Membranes Moist Neck: NL Appearance and Movements; NL JVP, Trachea Midline Respiratory: Symmetrical Chest Expansion and Respiratory Effort, Clear to Auscultation Cardiovascular: NL Sounds; No Murmurs; No JVD, RRR, - - 1+ B/L LE edema. Abdominal: NL Sounds; No Tenderness; No Distention, No Hepatosplenomegaly Lymphatic: No Cervical Adenopathy Extremities: No Clubbing, Cyanosis Skin: No Rash or Ulcers, No Nodules or Sclerosis Neurological: Alert and Oriented x 3, NL Sensation, NL Muscle Strength and Tone , - - CN II-XII intact. Result Diagrams: 07/19/19 10:45 07/19/19 10:45 Microbiology and Other Data: Microbiology 07/16/19 13:33 Aerobic Blood Culture - Preliminary Blood Venous No Growth Day 2 Anaerobic Blood Culture - Preliminary No Growth Day 2 07/17/19 12:30 Urine Culture - Preliminary Urine Proteus Penneri 07/16/19 14:12 Aerobic Blood Culture - Preliminary Blood Venous No Growth Day 1 Anaerobic Blood Culture - Preliminary No Growth Day 1 Assess/Plan/Problems-Billing Assessment: Patient is a 73yo female with a PMH for CHF, CKD, COPD on 3L, here with worsening SOB and hypoxia with likely heart failure exacerbation. Patient is improving on diuresis and is being ruled out for COVID. - Patient Problems (1) Acute on chronic respiratory failure with hypoxia Current Visit: No Status: Acute Priority: Medium Code(s): J96.21 - ACUTE AND CHRONIC RESPIRATORY FAILURE WITH HYPOXIA SNOMED Code(s): 09662053 Comment: - Worsening hypoxia over baseline on admission (Wear 3L all times at home) - Now back on 3L - Likely due to CHF, possible COPD exacerbation as well. COVID R/O (2) CHF (congestive heart failure) Current Visit: No Status: Acute Code(s): I50.9 - HEART FAILURE, UNSPECIFIED SNOMED Code(s): 13691791 Comment: - HFpEF at most recent Echo - Diuresis with Lasix and Metolazone, decrease dose and monitor. - Now transitioned to oral diuretics. - Elevated Trop most likely due to CHF, no signs of ACS - Associated LAKSHMI likely due to fluid overload. 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 Continue Spiriva, nebs, singulair - No indication for steroids. 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 (10) DNR (do not resuscitate) Current Visit: No Status: Acute (11) DVT prophylaxis Current Visit: No Status: Acute Code(s): VVK3626 - SNOMED Code(s): 918257081 Comment: -Eliquis Status and Disposition: Inpatient for CHF Exacerbation. D/C tomorrow back to sister's house.
[2019-07-19] MEDS: Cholestyramine Resin* 4 GM POWDER PO SCH (20:41)
[2019-07-20 07:24] VITALS: BP 104/68
[2019-07-20] MEDS: Cyanocobalamin TAB* 500 MCG PO SCH (07:36)
[2019-07-20] MEDS: Apixaban* 5 MG TAB PO SCH (07:36)
[2019-07-20] MEDS: Pantoprazole TAB * 40 MG TAB PO SCH (07:36)
[2019-07-20] MEDS: Nicotine PATCH 7 MG/24 HR* PATCH TRANSDERM SCH (07:36)
[2019-07-20] MEDS: Ferrous Sulfate TAB* 325 MG PO SCH (07:36)
[2019-07-20] MEDS: Montelukast Sodium TAB* 10 MG PO SCH (07:36)
[2019-07-20] MEDS: Citalopram TAB* 20 MG PO SCH (07:36)
[2019-07-20] MEDS: Magnesium Oxide TAB* 400 MG PO SCH (07:36)
[2019-07-20] MEDS: Metoprolol Tartrate TAB* 25 MG PO SCH (07:37)
[2019-07-20] MEDS: Nystatin TOP POWDER* 15 GM BTL TOPICAL SCH (07:37)
[2019-07-20] MEDS: Polyethylene Glycol 3350* 17 GM PACKET PO SCH (07:37)
[2019-07-20] MEDS: Acetaminophen TAB* 325 MG PO PRN (07:46)
[2019-07-20] MEDS: Tiotropium Brom/Olodaterol MDI INH SCH (08:20)
[2019-07-20] MEDS ORDERED: Torsemide TAB* 20 MG PO SCH (09:00)
--- NOTE | 2019-07-20 20:11 | DS ---
CC: Dr. Morgan Mccarthy * DISCHARGE SUMMARY: DATE OF ADMISSION: 07/16/19 DATE OF DISCHARGE: 07/20/19 PRIMARY CARE PROVIDER: Dr. Morgan Mccarthy. MY ATTENDING WHILE IN THE HOSPITAL: Dr. Zhane Al.* (DICTATED BY CHNIG STARK) PRIMARY DISCHARGE DIAGNOSES: 1. Heart failure exacerbation. 2. Acute on chronic respiratory failure, resolved. 3. Chronic heart failure with preserved ejection fraction. 4. 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 SECONDARY DISCHARGE DIAGNOSES: 1. Heart failure with preserved ejection fraction. 2. Reflux. 3. Chronic atrial fibrillation. 4. Chronic obstructive pulmonary disease with chronic hypoxic respiratory failure on 3 L of continuous oxygen. 5. Osteoarthritis. 6. Hypertension. 7. Cataracts. 8. History of kidney stones. 9. Tobacco use. 10. Chronic kidney disease. 11. History of cerebrovascular accident. 12. History of cerebral aneurysm. 13. Recurrent right-sided pleural effusion. 14. Obstructive sleep apnea, noncompliant with CPAP. 15. Pulmonary nodule. STUDIES DONE WHILE IN THE HOSPITAL: Chest x-ray from 07/16/19 read as loculated right pleural effusion. EKG was nonischemic. Chest/thorax CTA from 07/16/19 read as 2.1 cm nodule in the right upper lobe, which is suspected to be personal service representative of rounded atelectasis; however, this should be evaluated with a PET or CT scan in 3 to 6 months to further document stability. No pulmonary embolism noted. Cardiomegaly with reflux of contrast in the hepatic veins suggestive of right-sided heart failure, interstitial pulmonary edema with small bilateral pleural effusions. Coronary artery calcifications, extensive atherosclerotic disease. Mild biapical centrilobular emphysema. The mediastinal lymph nodes have similarly increased in number and normal in size. Old compression fractures. MEDICATIONS AT DISCHARGE: 1. Omeprazole 20 p.o. daily. 2. Alendronate 70 mg p.o. weekly. 3. Vitamin B12 1000 mcg p.o. daily. 4. Montelukast 10 mg p.o. daily. 5. Ferrous sulfate 325 mg p.o. daily. 6. Apixaban 5 mg p.o. b.i.d. 7. Citalopram 20 mg p.o. daily. 8. Magnesium oxide 400 mg p.o. daily. 9. Cholestyramine 4 g p.o. daily. 10. Ipratropium/albuterol 3 mL inhalation 4 times a day as needed. 11. Polyethylene glycol 17 g p.o. daily. 12. Anoro 1 puff inhalation daily. 13. Metoprolol tartrate 50 mg p.o. b.i.d. with meals. 14. Albuterol inhaler 2 puffs inhalation q.4 hours as needed. 15. Nicotine patch 7 mg for 24 hours 1 patch transdermal daily. 16. Citalopram 10 mg p.o. daily. 17. Tylenol 1000 mg p.o. as needed. 18. Metolazone 5 mg p.o. 3 times a week. 19. Cefuroxime 250 mg p.o. b.i.d. x 6 doses. 20. Torsemide 20 mg p.o. daily. New medications on discharge: 1. Cefuroxime. 2. Torsemide. Medications discontinued at discharge: 1. Furosemide 40 mg p.o. daily. HOSPITAL COURSE: This is a brief summary of the patient's presentation. For more details, please see history and physical from Carolann Rodas NP, on . In brief, the patient is a 73-year-old female with past medical history significant for the above who presented to the emergency department after she was found at home by visiting nurse services due to being hypoxic and dizzy when she stood up. The patient had no chest pain. The patient did have an increased dry cough. The patient did not have any known fevers. The patient came to the emergency department and tested for COVID-19, had a CTA as above showing likely heart failure exacerbation and possible COPD exacerbation. The patient was not given steroids due to COVID-19 rule out. The patient was never noted to be wheezing; however, she was hypoxic. The patient continued on her home inhalers. The patient was given IV Lasix, this seemed to help her breathing. The patient also had a slight increase in her creatinine, and with diuresis, this improved. The patient was found to be negative for COVID-19. The patient had a slightly elevated troponin without any chest pain, which was attributed to her heart failure. The patient was anemic and was found to have normal folate, B12, and iron studies. The patient slowly improved with progressed to functional status and breathing while in the hospital, so we weaned down to her normal oxygen level and was saturating very well. The patient had no hypotension. The patient had urinalysis which showed positive nitrite, positive leukocyte esterase, and grew Proteus penneri which was susceptible to third-generation cephalosporin therapy. The patient was stable enough for discharge on 07/20/19 to home. The patient performed well with physical therapy and was able to demonstrate ability to go upstairs on the day before her discharge. PHYSICAL EXAMINATION ON DISCHARGE: General: The patient is a 73-year-old female who appears stated age and sitting comfortably in bed, in no acute distress. Vital Signs: At the time of evaluation, temperature 98.3, pulse rate 66, respiratory rate 18, oxygen saturation 95% on 3 L, blood pressure 104/ 60. HEENT: Normocephalic, atraumatic. Sclerae are anicteric. No conjunctival injection. Nasal mucosa moist. Oral mucosa moist. No pharyngeal erythema, discharge, or exudate. Neck: Supple, nontender. No lymphadenopathy. No carotid bruits auscultated. No JVD. Cardiac: Regular rate and rhythm. No clicks, murmurs, gallops, or rubs. Pulses 2+ in dorsalis pedis, posterior tibialis, and radial areas. Trace bilateral lower extremity noted. Respiratory : Clear to auscultation bilaterally. No wheezes, rales, or rhonchi. Good air exchange bilaterally. Abdomen: Soft, nontender, and nondistended. Bowel sounds present, normoactive in all 4 quadrants. No hepatosplenomegaly. No abdominal bruits auscultated. No hepatojugular reflux. Genitourinary: No suprapubic or CVA tenderness. Davis in place draining clear yellow urine. Neuro: Cranial nerves II through XII are intact. No focal deficits. Alert and oriented x3. Psychiatric: Pleasant and cooperative. DISCHARGE PLAN BY PROBLEM: 1. Acute on chronic heart failure with preserved ejection fraction. The patient had respiratory failure and CTA findings consistent with heart failure and this resolved with diuresis. The patient was on home Lasix, but was transitioned to a similar dose of torsemide, which she tolerated well on the last day of her hospitalization. The patient based on daily weights lost 7 pounds while in the hospital and her edema was minimal on the day of her discharge. The patient should have a low-salt diet and follow up with the officer captain as needed. 2. Chronic obstructive pulmonary disease with chronic hypoxic respiratory failure. Continue the patient's chronic and as needed treatments. The patient is back on her home dose of 3 L. The patient was not treated with steroids due to the lack of chronic obstructive pulmonary disease specific symptoms. The patient was not noted to be coughing more than normal during her hospitalization. 3. Urinary tract infection. It is possible the patient's heart failure exacerbation was provoked by her current episodes of urinary tract infection. The patient will be treated for 7 days of third generation cephalosporin therapy for her Proteus penneri infection. The patient is to follow up with her urologist in [place] for which she previous had an appointment to help with avoid travel to the hospital. 4. Atrial fibrillation, history of cerebrovascular accident. Continue the patient's Eliquis. The patient is rate controlled. 5. Gastroesophageal reflux disease. Continue the patient's . 6. Pulmonary nodule. The patient should, if felt appropriate, have a repeat CT scan of the chest in 1 year to follow up on her pulmonary nodule, which was thought likely to be nodular atelectasis. DISPOSITION: Home. CONDITION: Stable. TIME SPENT: Approximately 60 minutes was spent on discharge of this patient, 30 of which was spent [id number] with the patient discussing treatment plan. CHING STARK [id number]/TAMIA #: [id number] DOREEN
== END 2019-07-20 11:30 | disposition home health service (06) | DRG 291 ==
LOC: ED 12:29 → MED 17:22 → MEDTELE 07-19 16:42
PROVIDERS: ADMIT Internal Medicine; ATTEND Hospitalist
DX: I13.0 Hypertensive heart and chronic kidney disease with heart failure and stage 1 through stage 4 chronic kidney disease, or unspecified chronic kidney disease (principal); I50.33 Acute on chronic diastolic (congestive) heart failure; J96.21 Acute and chronic respiratory failure with hypoxia; T83.511A Infection and inflammatory reaction due to indwelling urethral catheter, initial encounter; N39.0 Urinary tract infection, site not specified; I48.20 Chronic atrial fibrillation, unspecified; J98.11 Atelectasis; N17.9 Acute kidney failure, unspecified; D63.1 Anemia in chronic kidney disease; N18.9 Chronic kidney disease, unspecified; B96.4 Proteus (mirabilis) (morganii) as the cause of diseases classified elsewhere; K21.9 Gastro-esophageal reflux disease without esophagitis; J44.9 Chronic obstructive pulmonary disease, unspecified; M19.90 Unspecified osteoarthritis, unspecified site; G47.33 Obstructive sleep apnea (adult) (pediatric); R91.1 Solitary pulmonary nodule; R74.8 Abnormal levels of other serum enzymes; Z99.81 Dependence on supplemental oxygen; Z86.73 Personal history of transient ischemic attack (TIA), and cerebral infarction without residual deficits; Z79.899 Other long term (current) drug therapy; Z91.018 Allergy to other foods; Z83.3 Family history of diabetes mellitus; Z82.49 Family history of ischemic heart disease and other diseases of the circulatory system; Z87.891 Personal history of nicotine dependence; K22.70 Barrett's esophagus without dysplasia
CPT/HCPCS: 36415; 71045; 71275; 80048; 80053; 80061; 81003; 81015; 82247; 82248; 82607; 82728; 82746; 82803; 83540; 83550; 83735; 83880; 84484; 85025; 87040; 87077; 87086; 87186; 87635; 93005; 94640; 99285; A9270-GY; J0696; J1940; J3475; J3535; Q9967

== ENCOUNTER 2019-08-06 13:23 | Inpatient (IN) | payer MEDICARE ==
--- NOTE | 2019-08-06 13:32 | ED ---
GI/ HPI - HPI Summary HPI Summary: 73 year old F presenting to [facility] with a chief complaint of right knee pain secondary to a fall 4 days ago and dysuria. Patient reports constipation for one week. She has a Davis catheter. The patient rates her current pain 0/10 in severity. Symptoms aggravated by weight bearing. Symptoms alleviated by rest. The patient is unable to stand secondary to her pain. She denies any fever, chills, erythema of eyes, sore throat, chest pain, shortness of breath, cough, abdominal pain, nausea/vomiting, hematuria, myalgia, edema, rash, dizziness, or hitting her head. She was using her cane when she fell. The patient was admitted to the hospital on July 15 and was discharged on July 19. Medication list reviewed. Allergy list reviewed. - History of Current Complaint Time Seen by Provider: 08/06/19 13:25 Stated Complaint: RIGHT KNEE PAIN AND POSS UTI PER EMS Hx Obtained From: Patient Onset/Duration: Started Days Ago Timing: Constant Current Severity: None Associated Signs and Symptoms: Positive: Constipation, Dysuria, Other: - Right knee pain. Negative: Dizziness, Nausea, Vomiting, Fever, Hematuria, Chills, Abdominal Pain, Cough, Chest Pain Aggravating Factor(s): Walking/Exertion Alleviating Factor(s): Rest - Additional Pertinent History Primary Care Physician: J LUIS - Allergy/Home Medications Allergies/Adverse Reactions: Allergies Allergy/AdvReac Type Severity Reaction Status Date / Time tomato Allergy Swelling Verified 07/16/19 13:16 Of Face,Lips,& Throat Home Medications: Home Medications Omeprazole CAP (NF) [Prilosec CAP* 20 MG] 20 mg PO DAILY 07/22/12 [History Confirmed 08/06/19] Alendronate (NF) [Fosamax (NF)] 70 mg PO WEEKLY 02/27/17 [History Confirmed ] Apixaban* [Eliquis*] 5 mg PO BID 02/23/19 [History Confirmed 08/06/19] Citalopram TAB* [Celexa TAB*] 20 mg PO DAILY 02/23/19 [History Confirmed ] Cyanocobalamin TAB* [Vitamin B12 TAB*] 1,000 mcg PO DAILY 02/23/19 [History Confirmed 08/06/19] Ferrous Sulfate TAB* 325 mg PO DAILY 02/23/19 [History Confirmed 08/06/19] Montelukast Sodium TAB* [Singulair 10 MG TAB*] 10 mg PO DAILY 02/23/19 [History Confirmed 08/06/19] Magnesium Oxide TAB* [MagOx 400 TAB*] 400 mg PO DAILY tab 03/05/19 [Rx Confirmed 08/06/19] Metoprolol Tartrate TAB* [Lopressor TAB*] 50 mg PO BID WITH MEALS 04/30/19 [ History Confirmed 08/06/19] Polyethylene Glycol 3350* [Miralax (17 GM DOSE VANGIE)] 17 gm PO DAILY PRN [History Confirmed 08/06/19] Umeclidin/Vilant 62.5 MDI(NF) [ANORO 62.5/25 Ellipta DEVICE (NF)] 1 puff INH DAILY 04/30/19 [History Confirmed 08/06/19] Acetaminophen [Tylenol Extra Strength] 1,000 mg PO Q8H PRN 07/16/19 [History Confirmed 08/06/19] Citalopram TAB* [Celexa TAB*] 10 mg PO DAILY 07/16/19 [History Confirmed ] Metolazone TAB* [Zaroxolyn TAB*] 5 mg PO .3X/WEEK 07/16/19 [History Confirmed ] Nicotine PATCH 7 MG/24 HR* 1 patch TRANSDERM DAILY 07/16/19 [History Confirmed 08/06/19] Torsemide TAB* [Demadex 20 MG*] 20 mg PO DAILY #90 tab 07/20/19 [Rx Confirmed ] Albuterol inh POWDER (NF) [Proair Respiclick] 1 puff INH Q4HR PRN 08/06/19 [ History Confirmed 08/06/19] Cholestyramine Resin* [Questran*] 4 gm PO BEDTIME 08/06/19 [History Confirmed ] traMADol TAB* [Ultram*] 50 mg PO Q6HR PRN 08/06/19 [History Confirmed 08/06/19] PMH/Surg Hx/FS Hx/Imm Hx Endocrine/Hematology History: Reports: Hx Diabetes Denies: Hx Anticoagulant Therapy, Hx Thyroid Disease, Hx Anemia, Hx Unexplained Bleeding Cardiovascular History: Reports: Hx Aneurysm - CEREBRAL ANEURYSM WITH CLIP, Hx Angina, Hx Atrial Fibrillation - On Eliquis, Hx Congestive Heart Failure, Hx Deep Vein Thrombosis, Hx Hypercholesterolemia, Hx Hypertension, Other Cardiovascular Problems/Disorders - murmur Denies: Hx Angioplasty, Hx Auto Implanted Cardiovert Defib, Hx Cardiac Arrest , Hx Cardiomegaly, Hx Coronary Artery Disease, Hx Hypotension, Hx Pacemaker/ICD , Hx Peripheral Vascular Disease, Hx Rheumatic Fever, Hx Valvular Heart Disease Respiratory History: Reports: Hx Chronic Obstructive Pulmonary Disease (COPD), Hx Pleural Effusion, Hx Pneumonia, Other Respiratory Problems/Disorders - HX INTUBATION 2013 W/FLU A Denies: Hx Asthma, Hx Chronic Bronchitis, Hx Pulmonary Edema, Hx Pulmonary Embolism, Hx Seasonal Allergies, Hx Sleep Apnea GI History: Reports: Hx Gall Bladder Disease, Hx Gastroesophageal Reflux Disease - TAKES OMEPRAZOLE, Hx Ulcer - GI, Other GI Disorders - BARRETTS ESOPHAGUS Denies: Hx Cirrhosis, Hx Diverticulosis, Hx Gastrointestinal Bleed, Hx Irritable Bowel History: Reports: Hx Kidney Stones - 2 WEEKS AGO, Hx Renal Disease - URINARY SEPSIS, Other Problems/Disorders - RENAL INSUFF Denies: Hx Dialysis Musculoskeletal History: Reports: Hx Arthritis, Hx Back Problems, Hx Bursitis, Other Musculoskeletal History - hernia Sensory History: Reports: Hx Cataracts, Hx Contacts or Glasses - she is near sighted Denies: Hx Hearing Aid Opthamlomology History: Reports: Hx Cataracts, Hx Contacts or Glasses - she is near sighted Neurological History: Reports: Hx CVA, Hx Seizures, Other Neuro Impairments/ Disorders - CEREBRAL ANEURYSM, STRESS ENGINEER shunt Denies: Hx Dementia, Hx Developmental Delay, Hx Headaches, Hx Migraine, Hx Nerve Disease, Hx Spinal Cord Injury, Hx Transient Ischemic Attacks (TIA) Psychiatric History: Denies: Hx Panic Disorder, Hx Substance Abuse - Surgical History Surgical History: Yes Surgery Procedure, Year, and Place: STRESS ENGINEER SHUNT 2002- PER [place] SCAN W/O XRAYS , NON-PROGRAMMABLE. LUMBAR LAMINECTOMY. CHOLECYSTECTOMY. CEREBRAL ANEURYSM CLIPPING 2002- CLEARED ON PREV MRI IN 2011, OP REPORT SCANNED INTO PACS. MULTIPLE TOE SURGERIES. PICC LINE 2013. HYSTERECTOMY. 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 in 2017, nares Denies: Hx Hepatitis, Hx Human Immunodeficiency Virus (HIV), Hx Shingles, Hx Tuberculosis - Family History Known Family History: Positive: Cardiac Disease - CAD, Hypertension, Diabetes, Other - Dementia, neg: Breast CA - Social History Alcohol Use: None Alcohol Amount: "at keturah" Hx Substance Use: No Substance Use Type: Reports: None Hx Tobacco Use: Yes Smoking Status (MU): Former Smoker Type: Cigarettes Amount Used/How Often: 1ppd Length of Time of Smoking/Using Tobacco: 40years Have You Smoked in the Last Year: Yes Review of Systems Negative: Fever, Chills Negative: Erythema Negative: Sore Throat Negative: Chest Pain Negative: Shortness Of Breath, Cough Positive: Other - Constipation. Negative: Abdominal Pain, Vomiting, Nausea Positive: dysuria. Negative: hematuria Positive: Other - Right knee pain. Negative: Myalgia, Edema Negative: Rash Neurological/Mental Status: Negative - Dizziness All Other Systems Reviewed And Are Negative: Yes Physical Exam - Summary Physical Exam Summary: Constitutional: Well-developed, Well-nourished, Alert. (-) Distressed Skin: Warm, Dry HENT: Normocephalic; Atraumatic Eyes: Conjunctiva normal Neck: Musculoskeletal ROM normal neck. (-) JVD, (-) Stridor, (-) Tracheal deviation Cardio: Rhythm regular, rate normal, Heart sounds normal; Intact distal pulses; The pedal pulses are 2+ and symmetric. Radial pulses are 2+ and symmetric. (-) Murmur Pulmonary/Chest wall: Effort normal. (-) Respiratory distress, (-) Wheezes, (-) Rales Abd: Soft, (-) tenderness, (-) Distension, (-) Guarding, (-) Rebound Musculoskeletal: Bruising over her right tibia and pain and tenderness of all aspects of knee, knee is not swollen. Lymph: (-) Cervical adenopathy Neuro: Alert, Oriented x3 Psych: Mood and affect Normal Triage Information Reviewed: Yes Vital Signs Reviewed: Yes Procedures - Sedation Patient Received Moderate/Deep Sedation with Procedure: No Diagnostics - Laboratory Result Diagrams: 08/08/19 07:08 08/08/19 07:08 Lab Statement: Any lab studies that have been ordered have been reviewed, and results considered in the medical decision making process. - Radiology Lower extremity x-ray Radiology Interpretation Completed By: Radiologist Summary of Radiographic Findings: 1. OSTEOPENIA. 2. OSTEOARTHRITIS. 3. THERE IS PERIOSTEAL REACTION ALONG THE DISTAL MEDIAL TIBIA WHICH MAY REFLECT HEALING RESPONSE IN THE SETTING OF SUBACUTE FRACTURE. RECOMMEND CORRELATION WITH SITE OF PAIN. 4. PERIPHERAL ARTERIAL DISEASE. ED physician has reviewed this report. Knee x-ray Radiology Interpretation Completed By: Radiologist Summary of Radiographic Findings: No fracture of the right knee is noted. Degenerative changes medial. compartment right knee. ED physician has reviewed this report. Ankle x-ray Radiology Interpretation Completed By: Radiologist Summary of Radiographic Findings: 1. OSTEOPENIA. 2. OSTEOARTHRITIS. 3. THERE IS PERIOSTEAL REACTION ALONG THE DISTAL MEDIAL TIBIA WHICH MAY REFLECT HEALING RESPONSE IN THE SETTING OF SUBACUTE FRACTURE. RECOMMEND CORRELATION WITH SITE OF PAIN. 4. PERIPHERAL ARTERIAL DISEASE. ED physician has reviewed this report. - EKG 14:00 Cardiac Rate: Other Rate - 59 BPM EKG Rhythm: Atrial Fibrillation - No STEMI. ED physician has reviewed and interpreted this EKG. Re-Evaluation - Re-Evaluation First Eval Re-Evaluation Time: 14:34 Comment: Consulted with the patient's PCP who stated that she cannot return home because she lives alone. Recommended hospital admission. Second Eval Re-Evaluation Time: 15:12 Change: Unchanged Comment: Re-evaluated with Roel, her nurse; her external genitalia is mildly erythematous. GIGU Course/Dx - Course Course Of Treatment: 73 year old F presenting to [facility] with a chief complaint of right knee pain secondary to a fall 4 days ago and dysuria. Patient reports constipation for one week. She has a Davis catheter. Physical exam findings: bruising over her right tibia and pain and tenderness of all aspects of her knee , knee is not swollen. An EKG reveals atrial fibrillation rate of 59 BPM, no STEMI. Lower extremity x-ray reveals, per radiologist, 1. OSTEOPENIA. 2. OSTEOARTHRITIS. 3. THERE IS PERIOSTEAL REACTION ALONG THE DISTAL MEDIAL TIBIA WHICH MAY REFLECT HEALING RESPONSE IN THE SETTING OF SUBACUTE FRACTURE. RECOMMEND CORRELATION WITH SITE OF PAIN. 4. PERIPHERAL ARTERIAL DISEASE. Knee x -ray reveals, per radiologist, No fracture of the right knee is noted. Degenerative changes medial compartment right knee. Ankle x-ray reveals, per radiologist, 1. OSTEOPENIA. 2. OSTEOARTHRITIS. 3. THERE IS PERIOSTEAL REACTION ALONG THE DISTAL MEDIAL TIBIA WHICH MAY REFLECT HEALING RESPONSE IN THE SETTING OF SUBACUTE FRACTURE. RECOMMEND CORRELATION WITH SITE OF PAIN. 4. PERIPHERAL ARTERIAL DISEASE. Test results with no significant abnormalities except for an MCH of 33, RDW of 22, absolute lymphs of 0.6, INR of 3.74, APTT of 49.8, sodium of 134, potassium of 2.4, chloride of 84, carbon dioxide of 40, BUN of 78, creatinine of 1.99, BUN/creatinine ratio of 39.2, glucose of 164, lactic acid of 2.5, total bilirubin of 1.30, AST of 9, ALT of 4, troponin of 0.05, urine blood of 3+ A, Ur leukocyte esterase of 2+ A, Urine WBC of 3+ A, Urine RBC of 3+ A, Ur squamous epith cells present, urine bacteria of 2+ A, hyaline casts present. In the ED course, the patient was given normal saline and Tramadol. We discussed patient care with the patient's PCP at 14:34 who recommended admission. Discussed with Dr. Youssef at 15:07 who will admit the patient. Patient will be admitted. The patient is agreeable with this plan. - Diagnoses Provider Diagnoses: Fracture of proximal end of tibia, Hypokalemia, Acute kidney injury, Lactic acidosis, UTI (urinary tract infection) - Physician Notifications Discussed Care Of Patient With: Sandy Youssef Time Discussed With Above Provider: 15:07 Instructed by Provider To: Other - Discussed with Dr. Youssef who will admit the patient. - Critical Care Time Critical Care Time: 30-74 min - 45 minutes Critical Care Statement: Critical care time is provided exclusive of any time spent performing procedures. Discharge ED - Sign-Out/Discharge Documenting (check all that apply): Patient Departure - Discharge Plan Condition: Stable Disposition: ADMITTED TO [facility] - Billing Disposition and Condition Condition: STABLE Disposition: Admitted to [facility] - Attestation Statements Document Initiated by Scribe: Yes Documenting Scribe: Sara Gil Provider For Whom Scribe is Documenting (Include Credential): Frederick Palomino MD Scribe Attestation: Sara Quiroz scribed for Frederick Palomino MD on 08/08/19 at 1218. Scribe Documentation Reviewed: Yes Provider Attestation: The documentation as recorded by the Sara de oliveira accurately reflects the service I personally performed and the decisions made by Frederick olivera MD Status of Scribe Document: Viewed
[2019-08-06] MEDS ORDERED: traMADol TAB* 50 MG PO ONE (13:51)
--- OUTSIDE RECORDS SUMMARY | 2019-08-06 13:51 | XMS REPORT ---
:1945 Author Organization [facility] Care Team Providers Name Role Phone Unavailable Unavailable Unavailable Problems Condition Condition Condition Status Onset Resolution Last Treating Comments Name Details Category Date Date Treatment Clinician Date Hypertensiv Hypertensiv Diagnosis Active 2018-04 Shreya e heart and e heart and 05-12 Ethan chronic chronic [id number] kidney kidney disease disease with heart with heart failure and failure and stage 1 stage 1 through through stage 4 stage 4 chronic chronic kidney kidney disease, or disease, or unspecified unspecified chronic chronic kidney kidney disease disease Heart Heart Diagnosis Active 2018-04 Shreya failure, failure, 05-12 Ethan unspecified unspecified [id number] Type 2 Type 2 Diagnosis Active 2018-04 Shreya diabetes diabetes 05-12 Ethan mellitus mellitus [id number] with with diabetic diabetic chronic chronic kidney kidney disease disease Chronic Chronic Diagnosis Active 2018-04 Shreya kidney kidney 05-12 Ethan disease, disease, [id number] unspecified unspecified Unspecified Unspecified Diagnosis Active 2018-04 Shreya atrial atrial 05-12 Ethan fibrillatio fibrillatio [id number] n n Chronic Chronic Diagnosis Active 2018-04 Shreya obstructive obstructive 05-12 Ethan pulmonary pulmonary [id number] disease, disease, unspecified unspecified 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 Active Shreya chronic chronic Ethan kidney kidney [id number] disease disease Obstructive Obstructive Diagnosis Active Shreya sleep apnea sleep apnea Ethan (adult) (adult) [id number] (pediatric) (pediatric) Acute and Acute and Diagnosis Active Shreya chronic chronic Ethan respiratory respiratory [id number] failure failure with with hypoxia hypoxia Lymphedema, Lymphedema, Diagnosis Active Shreya not not Ethan elsewhere elsewhere [id number] classified classified Retention Retention Diagnosis Active Shreya of urine, of urine, Ethan unspecified unspecified 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 Ethan without without [id number] dysplasia dysplasia Gastro-esop Gastro-esop Diagnosis Active Shreya hageal hageal Ethan reflux reflux [id number] disease disease without without esophagitis esophagitis Unspecified Unspecified Diagnosis Active Shreya osteoarthri osteoarthri Ethan tis, tis, [id number] unspecified unspecified site site Unspecified Unspecified Diagnosis Active Shreya cataract cataract Ethan [id number] Major Major Diagnosis Active Shreya depressive depressive Ethan disorder, disorder, [id number] single single episode, episode, unspecified unspecified Age-related Age-related Diagnosis Active Shreya osteoporosi osteoporosi Ethan s without s without [id number] current current pathologica pathologica l fracture l fracture Dependence Dependence Diagnosis Active Shreya on on Ethan supplementa supplementa [id number] l oxygen l oxygen 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 Active Shreya (current) (current) Ethan use of use of [id number] anticoagula anticoagula nts nts Personal Personal Diagnosis Active Shreya history of history of Ethan transient transient [id number] ischemic ischemic attack attack (TIA), and (TIA), and cerebral cerebral infarction infarction without without residual residual deficits deficits 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 al fluid [id number] drainage drainage device device Personal Personal Diagnosis Active Shreya history of history of Ethan nicotine nicotine [id number] dependence dependence Encounter Encounter Diagnosis Active Shreya for fitting for fitting Ethan and and [id number] adjustment adjustment of urinary of urinary device device Personal Personal Diagnosis Active Shreya history of history of Ethan urinary urinary [id number] (tract) (tract) infections infections Other long Other long Diagnosis Active Shreya term term Ethan (current) (current) [id number] drug drug therapy therapy Pain frequent Pain Mgmt Active 2019-0 Kaila pain 07-20 [place] 11:30: [id number] 00 Respiratory dyspnea Respirator Active 2019-0 Kaila present y 07-20 [place] 11:30: [id number] 00 Respiratory oxygen Respirator Active 2019-0 Kaila treatments y 07-20 [place] in home 11:30: [id number] 00 Respiratory smoker Respirator Active 2020-0 Kaila y 07-20 [place] 11:30: [id number] 00 Endo/Ernie diabetic Endo/Ernie Active 2020-0 Kaila foot care 07-20 [place] 11:30: [id number] 00 Endo/Ernie anti-coagul Endo/Ernie Active 2020-0 Kaila ation 07-20 [place] therapy 11:30: [id number] 00 Sensory impaired Sensory Active 2020-0 Kaila hearing 07-20 [place] 11:30: [id number] 00 Nutrition nutritional Nutrition Active 2020-0 Kaila restriction 07-20 [place] s 11:30: [id number] 00 Elimination recurring Eliminatio Active 2020-0 Kaila UTI n 07-20 [place] 11:30: [id number] 00 Elimination UTI within Eliminatio Active 2020-0 Kaila past 14 n 07-20 [place] days 11:30: [id number] 00 Elimination catheter Eliminatio Active 2020-0 Kaila present n 07-20 [place] 11:30: [id number] 00 Neuro confusion Neuro/Emot Active 2020-0 Kaila present ion 07-20 [place] 11:30: [id number] 00 Neuro impaired Neuro/Emot Active 2020-0 Kaila decision-ma ion 07-20 [place] juan manuel 11:30: [id number] 00 Neuro memory Neuro/Emot Active 2020-0 Kaila deficit ion 07-20 [place] needing 11:30: [id number] supervision 00 Activity ADL Activity Active 2020-0 Kaila assistance 07-20 [place] required 11:30: [id number] 00 Activity self-care Activity Active 2020-0 Kaila deficit 07-20 [place] 11:30: [id number] 00 Safety structural Safety Active 2020-0 Kaila barriers 07-20 [place] present 11:30: [id number] 00 Safety sanitation Safety Active 2020-0 Kaila hazards 07-20 [place] present 11:30: [id number] 00 Safety cannot be Safety Active 2020-0 Kaila left alone 07-20 [place] 11:30: [id number] 00 Safety fall risk Safety Active 2020-0 Kaila factor 07-20 [place] present 11:30: [id number] 00 Safety risk for Safety Active 2020-0 Kaila hospitaliza 07-20 [place] tion 11:30: [id number] 00 Medication oral med Meds Active 2020-0 Kaila assistance 07-20 [place] required 11:30: [id number] 00 Medication knowledge/s Meds Active 2020-0 Kaila kill 07-20 [place] deficit: pt 11:30: [id number] 00 Medication knowledge/s Meds Active 2020-0 Kaila kill 07-20 [place] deficit: cg 11:30: [id number] 00 Musculoskel transfer Musculoske Active 2020-0 Kaila etal assistance letal 07-20 [place] required 11:30: [id number] 00 Musculoskel requires Musculoske Active 2020-0 Kaila etal human letal 07-20 [place] assist to 11:30: [id number] leave home 00 Cath/Ostomy k/s Cath\Ostom Active 2020-0 Kaila /GI deficit: y\GI Care 07-20 [place] cath/ost/GI 11:30: [id number] care - pt 00 Cath/Ostomy k/s Cath\Ostom Active 2020-0 Kaila /GI deficit: y\GI Care 07-20 [place] cath/ost/GI 11:30: [id number] care - cg 00 Respiratory lung sounds Respirator Active 2019-0 Shreya deficit y 07-22 [place] 11:30: [id number] 00 Safety can be left Safety Active 2019-0 Shreya alone for 07-22 [place] only short 11:30: [id number] periods 00 Bed mobility/tr PT/OT: Bed Resolve 2019-07-26 Archie Mobility/Tr tony Mobility/T d 07-25 12:47:00 Chelo jimenez device ransfer 12:47: [id number] present 00 Bed transfer PT/OT: Bed Resolve 2019-07-26 Archie Mobility/Tr deficit: Mobility/T d 07-25 12:47:00 Chelo jimenez shower/tub ransfer 12:47: [id number] 00 Bed transfer PT/OT: Bed Resolve 2019-07-26 Archie Mobility/Tr deficit: Mobility/T d 07-25 12:47:00 Chelo jimenez vehicle ransfer 12:47: [id number] 00 Bed knowledge/s PT/OT: Bed Resolve 2019-07-26 Archie Mobility/Tr kill Mobility/T d 07-25 12:47:00 Kobziewicz ansfer deficit: pt ransfer 12:47: [id number] 00 Balance/End balance/dot compliance coordinator PT/OT: Active Archie urance rdination Balance/En 07-25 Kobziewicz deficit durance 12:47: [id number] 00 Gait/Locomo stair PT/OT: Active Archie tion management Gait/Locom 07-25 Kobziewicz problems req otion 12:47: [id number] 00 Gait/Locomo gait PT/OT: Active Archie tion assistive Gait/Locom 07-25 Kobziewicz problems device otion 12:47: [id number] present 00 Gait/Locomo gait PT/OT: Active Archie tion deficit Gait/Locom 07-25 Kobziewicz problems otion 12:47: [id number] 00 Safety fire risk: Safety Active Shreya smoking/O2 07-27 [place] in use 11:15: [id number] 00 Safety fire risk Safety Active Shreya present 07-27 [place] 11:15: [id number] 00 Medication potential Meds Active Shreya clinically 07-27 [place] significant 11:15: [id number] medication 00 issue Allergies, Adverse Reactions, Alerts Allergy Allergy Status Severity Reaction(s) Onset Inactive Treating Comments Name Type Date Date Clinician tomato Unknown Active Unknown Reaction 2019-06 Interface Unknown -30 Medications Ordered Filled Start Stop Current Ordering Indication Dosage Frequency Signature Comments Components Medication Medication Date Date Medication? Clinician (SIG) Name Name omeprazole omeprazole Yes Breiman Unknown Unknown ER 20 mg ER 20 mg 07-20 Morgan CHAIDEZ capsule,ext capsule,ext ended ended release release alendronate alendronate 2019- Yes Breiman Unknown Unknown 70 mg 70 mg 07-20 Morgan CHAIDEZ tablet tablet montelukast montelukast Yes Breiman Unknown Unknown 10 mg 10 mg 07-20 Morgan CHAIDEZ tablet tablet citalopram citalopram Yes Breiman Unknown Unknown 20 mg 20 mg 07-20 Morgan CHAIDEZ tablet tablet ferrous ferrous Yes Breiman Unknown Unknown sulfate 325 sulfate 325 07-20 Morgan CHAIDEZ mg (65 mg mg (65 mg iron) iron) tablet tablet cyanocobala cyanocobala 2019-0 Yes Breiman Unknown Unknown min (vit min (vit 07-20 ,Morgan B-12) 500 B12) 500 mcg tablet mcg tablet cholestyram cholestyram 2019-0 Yes Breiman Unknown Unknown ine (with ine (with 07-20 Morgan CHAIDEZ sugar) oral sugar) oral powder powder metoprolol metoprolol 2019-0 Yes Breiman Unknown Unknown tartrate 50 tartrate 50 07-20 Morgan CHAIDEZ mg tablet mg tablet citalopram citalopram 2019-0 Yes Breiman Unknown Unknown 10 mg 10 mg 07-20 Morgan CHAIDEZ tablet tablet metOLazone metOLazone 2019-0 Yes Breiman Unknown Unknown 5 mg tablet 5 mg tablet 07-20 Morgan CHAIDEZ cefUROXime cefUROXime 2019-0 2020- Yes Breiman Unknown Unknown axetiL 250 axetiL 250 07-20- Morgan CHAIDEZ mg tablet mg tablet torsemide torsemide 2019-0 Yes Breiman Unknown Unknown 20 mg 20 mg 07-20 Morgan CHAIDEZ tablet tablet Eliquis 5 Eliquis 5 2019-0 Yes Breiman Unknown Unknown mg tablet mg tablet 07-20 Morgan CHAIDEZ Anoro Anoro 0 Yes Breiman Unknown Unknown Ellipta Ellipta 07-20 Morgan CHAIDEZ 62.5 mcg-25 62.5 mcg-25 mcg/actuati mcg/actuati on powder on powder for for inhalation inhalation albuterol albuterol 2019-0 Yes Breiman Unknown Unknown sulfate HFA sulfate HFA 07-20 Morgan CHAIDEZ 90 90 mcg/actuati mcg/actuati on aerosol on aerosol inhaler inhaler Acetaminoph Acetaminoph 2019-0 Yes Breiman Unknown Unknown en Pain en Pain 07-20 Morgan CHAIDEZ Relief 500 Relief 500 mg tablet mg tablet traMADoL 50 traMADoL 50 2019-0 Yes Breiman Unknown Unknown mg tablet mg tablet 07-20 Morgan CHAIDEZ Oxygen Oxygen 2019-0 Yes Breiman Unknown Unknown 07-20 Morgan CHAIDEZ alendronate alendronate 2019-0 Yes Breiman Unknown Unknown 70 mg 70 mg 07-27 Morgan CHAIDEZ tablet tablet Cartia XT Cartia XT 2019-0 Yes Maghaydah Unknown Unknown 120 mg 120 mg 07-27 MDQutaybe capsule,ext capsule,ext h ended ended release release Vital Signs Vital Name Observation Time Observation Value Comments SYSTOLIC mm[Hg] 2019-08-04 18:11:24 138 mm[Hg] mm[Hg] Method: Sit SYSTOLIC mm[Hg] 2019-07-21 18:11:10 120 mm[Hg] mm[Hg] Method: Stand DIASTOLIC mm[Hg] 2019-08-04 18:11:24 78 mm[Hg] mm[Hg] Method: Sit DIASTOLIC mm[Hg] 2019-07-21 18:11:10 80 mm[Hg] mm[Hg] Method: Stand PULSE 2019-08-04 18:11:24 80 /min /min RESP RATE 2019-08-03 18:11:23 18 /min /min TEMP 2019-08-04 18:11:24 97.9 [degF] Procedures This patient has no known procedures. Results Test Description Test Time Test Comments Text Results Atomic Results Result Comments Serum or plasma calcium 2019-07-19 10:45:00 Identifier 27824-6 Result Unknown measurement (mass/volume) Time 2019-07-19 10:45:00 Test Item Value Reference Range Comments Serum or plasma calcium measurement (mass/volume) (test 10.0 mg/dL Unknown Unknown F code = 05477-1) Ordering Physician UnknownSerum or plasma magnesium measurement (mass/volume) 2019-07-19 10:45:00Identifier 87392-6 Result Time 2019-07-19 10:45:00Unknown Test Item Value Reference Range Comments Serum or plasma magnesium measurement 1.9 mg/dL Unknown Unknown F (mass/volume) (test code = 44886-6) Ordering Physician UnknownSerum or plasma carbon dioxide, total measurement ( moles/volume)2019-07-19 10:45:00Identifier 8- Result Time 2019-07-19 10:45: 00Unknown Test Item Value Reference Range Comments Serum or plasma carbon dioxide, total 35 mmol/L Unknown Unknown F measurement (moles/volume) (test code = 2028-9) Ordering Physician UnknownSerum or plasma chloride measurement (moles/volume) 2019-07-19 10:45:00Identifier 5-0 Result Time 2019-07-19 10:45:00Unknown Test Item Value Reference Range Comments Serum or plasma chloride measurement 92 mmol/L Unknown Unknown F (moles/volume) (test code = 2075-0) Ordering Physician UnknownSerum or plasma creatinine measurement (mass/volume) 2019-07-19 10:45:00Identifier 2160-0 Result Time 2019-07-19 10:45:00Unknown Test Item Value Reference Range Comments Serum or plasma creatinine measurement 1.27 mg/dL Unknown Unknown F (mass/volume) (test code = 2160-0) Ordering Physician UnknownSerum glucose measurement (mass/volume)2019-07-19 10: 45:00Identifier 2345-7 Result Time 2019-07-19 10:45:00Unknown Test Item Value Reference Range Comments Serum glucose measurement (mass/volume) 168 mg/dL Unknown Unknown F (test code = 2345-7) Ordering Physician UnknownSerum or plasma potassium measurement (moles/volume) 2019-07-19 10:45:00Identifier 2823-3 Result Time 2019-07-19 10:45:00Unknown Test Item Value Reference Range Comments Serum or plasma potassium measurement 3.6 mmol/L Unknown Unknown F (moles/volume) (test code = 2823-3) Ordering Physician UnknownSerum or plasma sodium measurement (moles/volume)07-18 10:45:00Identifier 2951-2 Result Time 2019-07-19 10:45:00Unknown Test Item Value Reference Range Comments Serum or plasma sodium measurement 137 mmol/L Unknown Unknown F (moles/volume) (test code = 2951-2) Ordering Physician UnknownSerum or plasma urea nitrogen measurement (mass/volume )2019-07-19 10:45:00Identifier 3094-0 Result Time 2019-07-19 10:45:00Unknown Test Item Value Reference Range Comments Serum or plasma urea nitrogen measurement 39 mg/dL Unknown Unknown F (mass/volume) (test code = 3094-0) Ordering Physician UnknownSerum or plasma urea nitrogen/creatinine ehice0170-46- 30 10:45:00Identifier 3097-3 Result Time 2019-07-19 10:45:00Unknown Test Item Value Reference Range Comments Serum or plasma urea nitrogen/creatinine 30.7 Unknown Unknown F ratio (test code = 3097-3) Ordering Physician UnknownAutomated blood platelet mean volume aggqqhdvham0578- 03-30 10:45:00Identifier 34229-4 Result Time 2019-07-19 10:45:00Unknown Test Item Value Reference Range Comments Automated blood platelet mean volume 7.4 fL Unknown Unknown F measurement (test code = 98334-1) Ordering Physician UnknownSerum or plasma anion [id number] 10:45: 00Identifier 25956-2 Result Time 2019-07-19 10:45:00Unknown Test Item Value Reference Range Comments Serum or plasma anion gap (test code = 10 mmol/L Unknown Unknown F 11132-1) Ordering Physician UnknownAutomated blood leukocytes count corrected for nucleated erythrocytes (number/volume)2019-07-19 10:45:00Identifier 69428-0 Result Time 2019-07-19 10:45:00Unknown Test Item Value Reference Range Comments Automated blood leukocytes count 7.9 10^3/uL Unknown Unknown F corrected for nucleated erythrocytes (number/volume) (test code = 95373-0) Ordering Physician UnknownAutomated blood nucleated erythrocytes esdlxarzz2506- 03-30 10:45:00Identifier 89816-2 Result Time 2019-07-19 10:45:00Unknown Test Item Value Reference Range Comments Automated blood nucleated erythrocytes 0.1 Unknown Unknown F detection (test code = 88809-3) Ordering Physician UnknownAutomated blood hematocrit (percentage)2019-07-19 10: 45:00Identifier 4544-3 Result Time 2019-07-19 10:45:00Unknown Test Item Value Reference Range Comments Automated blood hematocrit (percentage) (test 33 % Unknown Unknown F code = 4544-3) Ordering Physician UnknownEstimated glomerular filtration rate (GFR) non- Eohkxllx3977-15-13 10:45:00Identifier 08114-6 Result Time 2019-07-19 10: 45:00Unknown Test Item Value Reference Range Comments Estimated glomerular filtration rate (GFR) 41.2 Unknown Unknown F non- (test code = 94746-6) Ordering Physician UnknownAutomated blood monocytes/100 updmngvjvn6879-77-69 10: 45:00Identifier 5905-5 Result Time 2019-07-19 10:45:00Unknown Test Item Value Reference Range Comments Automated blood monocytes/100 leukocytes 4.5 % Unknown Unknown F (test code = 5905-5) Ordering Physician UnknownAutomated blood basophil count (number/volume) 10:45:00Identifier 704-7 Result Time 2019-07-19 10:45:00Unknown Test Item Value Reference Range Comments Automated blood basophil count 0.0 10^3/ul Unknown Unknown F (number/volume) (test code = 704-7) Ordering Physician UnknownAutomated blood basophils/100 zfidufcxfp9119-25-22 10: 45:00Identifier 706-2 Result Time 2019-07-19 10:45:00Unknown Test Item Value Reference Range Comments Automated blood basophils/100 leukocytes 0.4 % Unknown Unknown F (test code = 706-2) Ordering Physician UnknownAutomated blood eosinophil count (number/volume)07-18 10:45:00Identifier 711-2 Result Time 2019-07-19 10:45:00Unknown Test Item Value Reference Range Comments Automated blood eosinophil count 0.2 10^3/ul Unknown Unknown F (number/volume) (test code = 711-2) Ordering Physician UnknownAutomated blood eosinophils/100 ooouxgqvck6336-94-27 10:45:00Identifier 713-8 Result Time 2019-07-19 10:45:00Unknown Test Item Value Reference Range Comments Automated blood eosinophils/100 leukocytes 2.1 % Unknown Unknown F (test code = 713-8) Ordering Physician UnknownBlood hemoglobin measurement (mass/volume)2019-07-19 10:45:00Identifier 718-7 Result Time 2019-07-19 10:45:00Unknown Test Item Value Reference Range Comments Blood hemoglobin measurement 10.9 g/dL Unknown Unknown F (mass/volume) (test code = 718-7) Ordering Physician UnknownBlood lymphocytes automated count (number/volume)07-18 10:45:00Identifier 731-0 Result Time 2019-07-19 10:45:00Unknown Test Item Value Reference Range Comments Blood lymphocytes automated count 0.2 10^3/ul Unknown Unknown F (number/volume) (test code = 731-0) Ordering Physician UnknownAutomated blood lymphocytes/100 idxbifovjw0692-60-65 10:45:00Identifier 736-9 Result Time 2019-07-19 10:45:00Unknown Test Item Value Reference Range Comments Automated blood lymphocytes/100 leukocytes 3.0 % Unknown Unknown F (test code = 736-9) Ordering Physician UnknownBlood monocytes automated count (number/volume)2019-06 10:45:00Identifier 742-7 Result Time 2019-07-19 10:45:00Unknown Test Item Value Reference Range Comments Blood monocytes automated count 0.4 10^3/ul Unknown Unknown F (number/volume) (test code = 742-7) Ordering Physician UnknownAutomated blood neutrophils/100 ydzcwfvclb0468-60-52 10:45:00Identifier 770-8 Result Time 2019-07-19 10:45:00Unknown Test Item Value Reference Range Comments Automated blood neutrophils/100 leukocytes 90.0 % Unknown Unknown F (test code = 770-8) Ordering Physician UnknownBlood nucleated erythrocytes automated count (number/ volume)2019-07-19 10:45:00Identifier 771-6 Result Time 2019-07-19 10:45: 00Unknown Test Item Value Reference Range Comments Blood nucleated erythrocytes automated 0.0 10^3/ul Unknown Unknown F count (number/volume) (test code = 771-6) Ordering Physician UnknownAutomated blood platelet count (number/volume) 10:45:00Identifier 777-3 Result Time 2019-07-19 10:45:00Unknown Test Item Value Reference Range Comments Automated blood platelet count 174 10^3/uL Unknown Unknown F (number/volume) (test code = 777-3) Ordering Physician UnknownAutomated erythrocyte mean corpuscular hemoglobin ( mass per erythrocyte)2019-07-19 10:45:00Identifier 785-6 Result Time 2019-07-19 10:45:00Unknown Test Item Value Reference Range Comments Automated erythrocyte mean corpuscular 31 pg Unknown Unknown F hemoglobin (mass per erythrocyte) (test code = 785-6) Ordering Physician UnknownAutomated erythrocyte mean corpuscular hemoglobin concentration measurement (mass/lhj5264-34-75 10:45:00Identifier 786-4 Result Time 2019-07-19 10:45:00Unknown Test Item Value Reference Range Comments Automated erythrocyte mean corpuscular 33 g/dL Unknown Unknown F hemoglobin concentration measurement (mass/vol (test code = 786-4) Ordering Physician UnknownAutomated erythrocyte mean corpuscular paxjzc7140-21- 30 10:45:00Identifier 787-2 Result Time 2019-07-19 10:45:00Unknown Test Item Value Reference Range Comments Automated erythrocyte mean corpuscular volume 91 fL Unknown Unknown F (test code = 787-2) Ordering Physician UnknownAutomated erythrocyte distribution width vwknb2428-46- 30 10:45:00Identifier 788-0 Result Time 2019-07-19 10:45:00Unknown Test Item Value Reference Range Comments Automated erythrocyte distribution width ratio 18 % Unknown Unknown F (test code = 788-0) Ordering Physician UnknownAutomated blood erythrocyte count (number/volume)07-18 10:45:00Identifier 789-8 Result Time 2019-07-19 10:45:00Unknown Test Item Value Reference Range Comments Automated blood erythrocyte count 3.59 10^6 /uL Unknown Unknown F (number/volume) (test code = 789-8) Ordering Physician UnknownLymphocyte proliferation [id number] 10:45: 00Identifier SHL7205 Result Time 2019-07-19 10:45:00Unknown Test Item Value Reference Range Comments Lymphocyte proliferation test (test 7.1 10^3/ul Unknown Unknown F code = BGP7862) Ordering Physician UnknownUrine urobilinogen measurement (units/volume) by test [id number] 12:30:00Identifier 65730-9 Result Time 2019-07-17 12:30: 00Unknown Test Item Value Reference Range Comments Urine urobilinogen measurement Negative Unknown Unknown F (units/volume) by test strip (test code = 92964-8) Ordering Physician UnknownUrine bacteria detection by automated qftjkw1445-77- 28 12:30:00Identifier 08449-6 Result Time 2019-07-17 12:30:00Unknown Test Item Value Reference Range Comments Urine bacteria detection by automated Absent Unknown Unknown F method (test code = 55584-7) Ordering Physician UnknownUrine total bilirubin detection by automated test [id number] 12:30:00Identifier 76358-0 Result Time 2019-07-17 12:30: 00Unknown Test Item Value Reference Range Comments Urine total bilirubin detection by Negative Unknown Unknown F automated test strip (test code = 09186-0) Ordering Physician UnknownUrine clarity by refractometry dwfvrvpwe0240-83-21 12: 30:00Identifier 56332-2 Result Time 2019-07-17 12:30:00Unknown Test Item Value Reference Range Comments Urine clarity by refractometry automated Cloudy Unknown Unknown F (test code = 32681-9) Ordering Physician UnknownColor of Urine by Kbcz3583-31-34 12:30:00Identifier 34376-0 Result Time 2019-07-17 12:30:00Unknown Test Item Value Reference Range Comments Color of Urine by Auto (test code = Yellow Unknown Unknown F 10678-4) Ordering Physician UnknownUrine glucose detection by automated test rjvtn1957-33 -28 12:30:00Identifier 26851-4 Result Time 2019-07-17 12:30:00Unknown Test Item Value Reference Range Comments Urine glucose detection by automated test Negative Unknown Unknown F strip (test code = 01568-2) Ordering Physician UnknownKetones [Mass/volume] in Urine by Automated test lzglu3888-23-09 12:30:00Identifier 50263-2 Result Time 2019-07-17 12:30: 00Unknown Test Item Value Reference Range Comments Ketones [Mass/volume] in Urine by Negative Unknown Unknown F Automated test strip (test code = 29761-8) Ordering Physician UnknownUrine nitrite detection by automated test igvth5593-01 -28 12:30:00Identifier 18512-0 Result Time 2019-07-17 12:30:00Unknown Test Item Value Reference Range Comments Urine nitrite detection by automated test Positive Unknown Unknown F strip (test code = 08027-6) Ordering Physician UnknownProtein [Mass/volume] in Urine by Automated test itzdq5229-64-49 12:30:00Identifier 13670-8 Result Time 2019-07-17 12:30: 00Unknown Test Item Value Reference Range Comments Protein [Mass/volume] in Urine by Negative Unknown Unknown F Automated test strip (test code = 08320-3) Ordering Physician UnknownSpecific gravity of Urine by Refractometry [id number] 12:30:00Identifier 69347-6 Result Time 2019-07-17 12:30: 00Unknown Test Item Value Reference Range Comments Specific gravity of Urine by Refractometry 1.009 Unknown Unknown F automated (test code = 75443-9) Ordering Physician UnknownUrine erythrocytes detection by automated [id number] 12:30:00Identifier 03520-2 Result Time 2019-07-17 12:30:00Unknown Test Item Value Reference Range Comments Urine erythrocytes detection by 3+(>10/hpf) Unknown Unknown F automated method (test code = 24697-4) Ordering Physician UnknownUrine leukocytes detection by automated [id number]- 28 12:30:00Identifier 16210-0 Result Time 2019-07-17 12:30:00Unknown Test Item Value Reference Range Comments Urine leukocytes detection by 3+(>20/hpf) Unknown Unknown F automated method (test code = 11832-1) Ordering Physician UnknownUrine hemoglobin detection by test [id number] 12: 30:00Identifier 5794-3 Result Time 2019-07-17 12:30:00Unknown Test Item Value Reference Range Comments Urine hemoglobin detection by test strip (test 3+ Unknown Unknown F code = 5794-3) Ordering Physician UnknownUrine leukocyte esterase detection by automated test [id number] 12:30:00Identifier 83578-9 Result Time 2019-07-17 12:30: 00Unknown Test Item Value Reference Range Comments Urine leukocyte esterase detection by automated 3+ Unknown Unknown F test strip (test code = 38124-5) Ordering Physician UnknownSerum or plasma vitamin B12 measurement (mass/volume) 2019-07-17 05:27:00Identifier 2132-9 Result Time 2019-07-17 05:27:00Unknown Test Item Value Reference Range Comments Serum or plasma vitamin B12 measurement 989 pg/mL Unknown Unknown F (mass/volume) (test code = 2132-9) Ordering Physician UnknownSerum or plasma ferritin measurement (mass/volume)2019 05:27:00Identifier 2276-4 Result Time 2019-07-17 05:27:00Unknown Test Item Value Reference Range Comments Serum or plasma ferritin measurement 410.6 ng/mL Unknown Unknown F (mass/volume) (test code = 2276-4) Ordering Physician UnknownSerum or plasma folate measurement (mass/volume)07-16 05:27:00Identifier 2284-8 Result Time 2019-07-17 05:27:00Unknown Test Item Value Reference Range Comments Serum or plasma folate measurement 8.31 ng/mL Unknown Unknown F (mass/volume) (test code = 2284-8) Ordering Physician UnknownSerum or plasma iron measurement (mass/volume) 05:27:00Identifier 2498-4 Result Time 2019-07-17 05:27:00Unknown Test Item Value Reference Range Comments Serum or plasma iron measurement 76 ug/dL Unknown Unknown F (mass/volume) (test code = 2498-4) Ordering Physician UnknownSerum or plasma iron binding capacity measurement ( mass/volume)2019-07-17 05:27:00Identifier 2500-7 Result Time 2019-07-17 05:27: 00Unknown Test Item Value Reference Range Comments Serum or plasma iron binding capacity 235 mcg/dL Unknown Unknown F measurement (mass/volume) (test code = 2500-7) Ordering Physician UnknownSerum or plasma transferrin measurement (mass/volume) 2019-07-17 05:27:00Identifier 3034-6 Result Time 2019-07-17 05:27:00Unknown Test Item Value Reference Range Comments Serum or plasma transferrin measurement 168 mg/dL Unknown Unknown F (mass/volume) (test code = 3034-6) Ordering Physician UnknownSerum or plasma troponin i.cardiac measurement (mass/ volume)2019-07-16 21:08:00Identifier 01501-8 Result Time 2019-07-16 21:08: 00Unknown Test Item Value Reference Range Comments Serum or plasma troponin i.cardiac 0.37 ng/mL Unknown Unknown F measurement (mass/volume) (test code = 20641-9) Ordering Physician UnknownSerum or plasma alanine aminotransferase measurement ( enzymatic activity/volume)2019-07-16 14:12:00Identifier 1742-6 Result Time 07-15 14:12:00Unknown Test Item Value Reference Range Comments Serum or plasma alanine aminotransferase 6 U/L Unknown Unknown F measurement (enzymatic activity/volume) (test code = 1742-6) Ordering Physician UnknownSerum or plasma albumin/globulin mass [id number] 14:12:00Identifier 1759-0 Result Time 2019-07-16 14:12:00Unknown Test Item Value Reference Range Comments Serum or plasma albumin/globulin mass ratio 1.0 Unknown Unknown F (test code = 175-0) Ordering Physician UnknownSerum or plasma aspartate aminotransferase measurement (enzymatic activity/volume)2019-07-16 14:12:00Identifier 0-8 Result Time 2019-07-16 14:12:00Unknown Test Item Value Reference Range Comments Serum or plasma aspartate aminotransferase 9 U/L Unknown Unknown F measurement (enzymatic activity/volume) (test code = 1919-11) Ordering Physician UnknownSerum or plasma direct bilirubin measurement (mass/ volume)2019-07-16 14:12:00Identifier 1967-10 Result Time 2019-07-16 14:12: 00Unknown Test Item Value Reference Range Comments Serum or plasma direct bilirubin 0.70 mg/dL Unknown Unknown F measurement (mass/volume) (test code = 1967-10) Ordering Physician UnknownBilirubin.indirect [Mass/volume] in Serum or [id number] 14:12:00Identifier 1970-04 Result Time 2019-07-16 14:12: 00Unknown Test Item Value Reference Range Comments Bilirubin.indirect [Mass/volume] in Serum 1.0 mg/dL Unknown Unknown F or Plasma (test code = 1970-04) Ordering Physician UnknownSerum or plasma total bilirubin measurement (mass/ volume)2019-07-16 14:12:00Identifier 1974-05 Result Time 2019-07-16 14:12: 00Unknown Test Item Value Reference Range Comments Serum or plasma total bilirubin 1.70 mg/dL Unknown Unknown F measurement (mass/volume) (test code = 1974-05) Ordering Physician UnknownPCO2 [id number] 14:12:00Identifier 2020-07 Result Time 2019-07-16 14:12:00Unknown Test Item Value Reference Range Comments PCO2 venous (test code = 2020-07) 45 mmHg Unknown Unknown F Ordering Physician UnknownSerum or plasma high density lipoprotein (HDL) cholesterol [id number] 14:12:00Identifier 2084-12 Result Time 14:12:00Unknown Test Item Value Reference Range Comments Serum or plasma high density lipoprotein 26.2 mg/dL Unknown Unknown F (HDL) cholesterol measurement (test code = 2085-9) Ordering Physician UnknownSerum or plasma low density lipoprotein (LDL) cholesterol measurement (mass/volume)2019-07-16 14:12:00Identifier 2088- Result Time 2019-07-16 14:12:00Unknown Test Item Value Reference Range Comments Serum or plasma low density lipoprotein 54 mg/dL Unknown Unknown F (LDL) cholesterol measurement (mass/volume) (test code = 2089-1) Ordering Physician UnknownSerum or plasma cholesterol measurement (mass/volume) 2019-07-16 14:12:00Identifier 3-3 Result Time 2019-07-16 14:12:00Unknown Test Item Value Reference Range Comments Serum or plasma cholesterol measurement 96 mg/dL Unknown Unknown F (mass/volume) (test code = 2093-3) Ordering Physician UnknownSerum or plasma triglyceride measurement (mass/volume) 2019-07-16 14:12:00Identifier 2571-8 Result Time 2019-07-16 14:12:00Unknown Test Item Value Reference Range Comments Serum or plasma triglyceride measurement 77 mg/dL Unknown Unknown F (mass/volume) (test code = 2571-8) Ordering Physician UnknownPO2 [id number] 14:12:00Identifier 2705-2 Result Time 2019-07-16 14:12:00Unknown Test Item Value Reference Range Comments PO2 venous (test code = 2705-2) 39.0 mmHg Unknown Unknown F Ordering Physician UnknownVenous blood pH [id number] 14:12: 00Identifier 2746-6 Result Time 2019-07-16 14:12:00Unknown Test Item Value Reference Range Comments Venous blood pH measurement (test code = 7.43 Unknown Unknown F 2746-6) Ordering Physician UnknownSerum total protein measurement (mass/volume) 14:12:00Identifier 2885-2 Result Time 2019-07-16 14:12:00Unknown Test Item Value Reference Range Comments Serum total protein measurement 7.3 g/dL Unknown Unknown F (mass/volume) (test code = 2885-2) Ordering Physician UnknownSerum or plasma natriuretic peptide B measurement ( mass/volume)2019-07-16 14:12:00Identifier 68669-0 Result Time 2019-07-16 14:12: 00Unknown Test Item Value Reference Range Comments Serum or plasma natriuretic peptide B 849 pg/mL Unknown Unknown F measurement (mass/volume) (test code = 86240-9) Ordering Physician UnknownVenous blood oxygen saturation calculated from oxygen partial [id number] 14:12:00Identifier 15925-0 Result Time 2019-07-16 14: 12:00Unknown Test Item Value Reference Range Comments Venous blood oxygen saturation calculated 66.2 % Unknown Unknown F from oxygen partial pressure (test code = 16987-9) Ordering Physician UnknownSerum or plasma albumin measurement by bromocresol green (BCG) dye binding method ([id number] 14:12:00Identifier 41271-8 Result Time 2019-07-16 14:12:00Unknown Test Item Value Reference Range Comments Serum or plasma albumin measurement by 3.7 g/dL Unknown Unknown F bromocresol green (BCG) dye binding method (ma (test code = 82458-6) Ordering Physician UnknownSerum or plasma alkaline phosphatase measurement ( enzymatic activity/volume)2019-07-16 14:12:00Identifier 6768-6 Result Time 07-15 14:12:00Unknown Test Item Value Reference Range Comments Serum or plasma alkaline phosphatase 69 U/L Unknown Unknown F measurement (enzymatic activity/volume) (test code = 6768-6) Ordering Physician UnknownInfluenza virus A RNA detection by probe and target amplification [id number] 13:18:00Identifier 96647-6 Result Time 13:18:00Unknown Test Item Value Reference Range Comments Influenza virus A RNA detection by probe Negative Unknown Unknown F and target amplification method (test code = 56811-4) Ordering Physician UnknownInfluenza virus B RNA detection by probe and target amplification [id number] 13:18:00Identifier 22293-5 Result Time 13:18:00Unknown Test Item Value Reference Range Comments Influenza virus B RNA detection by probe Negative Unknown Unknown F and target amplification method (test code = 83691-9) Ordering Physician Unknown
--- OUTSIDE RECORDS SUMMARY | 2019-08-06 13:51 | XMS REPORT ---
:1945 Author Organization [facility] Care Team Providers Name Role Phone Unavailable Unavailable Unavailable Problems Condition Condition Condition Status Onset Resolution Last Treating Comments Name Details Category Date Date Treatment Clinician Date Hypertensiv Hypertensiv Diagnosis Active 2018-04 Shreya e heart and e heart and 05-12 Ethan chronic chronic [id number] kidney kidney disease disease with heart with heart failure and failure and stage 1 stage 1 through through stage 4 stage 4 chronic chronic kidney kidney disease, or disease, or unspecified unspecified chronic chronic kidney kidney disease disease Heart Heart Diagnosis Active 2018-04 Shreya failure, failure, 05-12 Ethan unspecified unspecified [id number] Type 2 Type 2 Diagnosis Active 2018-04 Shreya diabetes diabetes 05-12 Ethan mellitus mellitus [id number] with with diabetic diabetic chronic chronic kidney kidney disease disease Chronic Chronic Diagnosis Active 2018-04 Shreya kidney kidney 05-12 Ethan disease, disease, [id number] unspecified unspecified Unspecified Unspecified Diagnosis Active 2018-04 Shreya atrial atrial 05-12 Ethan fibrillatio fibrillatio [id number] n n Chronic Chronic Diagnosis Active 2018-04 Shreya obstructive obstructive 05-12 Ethan pulmonary pulmonary [id number] disease, disease, unspecified unspecified 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 Active Shreya chronic chronic Ethan kidney kidney [id number] disease disease Obstructive Obstructive Diagnosis Active Shreya sleep apnea sleep apnea Ethan (adult) (adult) [id number] (pediatric) (pediatric) Acute and Acute and Diagnosis Active Shreya chronic chronic Ethan respiratory respiratory [id number] failure failure with with hypoxia hypoxia Lymphedema, Lymphedema, Diagnosis Active Shreya not not Ethan elsewhere elsewhere [id number] classified classified Retention Retention Diagnosis Active Shreya of urine, of urine, Ethan unspecified unspecified 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 Ethan without without [id number] dysplasia dysplasia Gastro-esop Gastro-esop Diagnosis Active Shreya hageal hageal Ethan reflux reflux [id number] disease disease without without esophagitis esophagitis Unspecified Unspecified Diagnosis Active Shreya osteoarthri osteoarthri Ethan tis, tis, [id number] unspecified unspecified site site Unspecified Unspecified Diagnosis Active Shreya cataract cataract Ethan [id number] Major Major Diagnosis Active Shreya depressive depressive Ethan disorder, disorder, [id number] single single episode, episode, unspecified unspecified Age-related Age-related Diagnosis Active Shreya osteoporosi osteoporosi Ethan s without s without [id number] current current pathologica pathologica l fracture l fracture Dependence Dependence Diagnosis Active Shreya on on Ethan supplementa supplementa [id number] l oxygen l oxygen custodial roasterman Diagnosis Active Shreya (current) (current) Ethan use of use of [id number] anticoagula anticoagula nts nts Personal Personal Diagnosis Active Shreya history of history of Ethan 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 (TIA), and (TIA), and cerebral cerebral infarction infarction without without residual residual deficits deficits 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 al fluid [id number] drainage drainage device device Personal Personal Diagnosis Active Shreya history of history of Ethan nicotine nicotine [id number] dependence dependence Encounter Encounter Diagnosis Active Shreya for fitting for fitting Ethan and and [id number] adjustment adjustment of urinary of urinary device device Personal Personal Diagnosis Active Shreya history of history of Ethan urinary urinary [id number] (tract) (tract) infections infections Other long Other long Diagnosis Active Shreya term term Ethan (current) (current) [id number] drug drug therapy therapy Pain frequent Pain Mgmt Active 2019-0 Kaila pain 07-20 [place] 11:30: [id number] 00 Respiratory dyspnea Respirator Active 2019-0 Kaila present y 07-20 [place] 11:30: [id number] 00 Respiratory oxygen Respirator Active 2019-0 Kaila treatments y 07-20 [place] in home 11:30: [id number] 00 Respiratory smoker Respirator Active 2020-0 Kaila y 07-20 [place] 11:30: [id number] 00 Endo/Ernie diabetic Endo/Ernie Active 2020-0 Kaila foot care 07-20 [place] 11:30: [id number] 00 Endo/Ernie anti-coagul Endo/Ernie Active 2020-0 Kaila ation 07-20 [place] therapy 11:30: [id number] 00 Sensory impaired Sensory Active 2020-0 Kaila hearing 07-20 [place] 11:30: [id number] 00 Nutrition nutritional Nutrition Active 2020-0 Kaila restriction 07-20 [place] s 11:30: [id number] 00 Elimination recurring Eliminatio Active 2020-0 Kaila UTI n 07-20 [place] 11:30: [id number] 00 Elimination UTI within Eliminatio Active 2020-0 Kaila past 14 n 07-20 [place] days 11:30: [id number] 00 Elimination catheter Eliminatio Active 2020-0 Kaila present n 07-20 [place] 11:30: [id number] 00 Neuro confusion Neuro/Emot Active 2020-0 Kaila present ion 07-20 [place] 11:30: [id number] 00 Neuro impaired Neuro/Emot Active 2020-0 Kaila decision-ma ion 07-20 [place] juan manuel 11:30: [id number] 00 Neuro memory Neuro/Emot Active 2020-0 Kaila deficit ion 07-20 [place] needing 11:30: [id number] supervision 00 Activity ADL Activity Active 2020-0 Kaila assistance 07-20 [place] required 11:30: [id number] 00 Activity self-care Activity Active 2020-0 Kaila deficit 07-20 [place] 11:30: [id number] 00 Safety structural Safety Active 2020-0 Kaila barriers 07-20 [place] present 11:30: [id number] 00 Safety sanitation Safety Active 2020-0 Kaila hazards 07-20 [place] present 11:30: [id number] 00 Safety cannot be Safety Active 2020-0 Kaila left alone 07-20 [place] 11:30: [id number] 00 Safety fall risk Safety Active 2020-0 Kaila factor 07-20 [place] present 11:30: [id number] 00 Safety risk for Safety Active 2020-0 Kaila hospitaliza 07-20 [place] tion 11:30: [id number] 00 Medication oral med Meds Active 2020-0 Kaila assistance 07-20 [place] required 11:30: [id number] 00 Medication knowledge/s Meds Active 2020-0 Kaila kill 07-20 [place] deficit: pt 11:30: [id number] 00 Medication knowledge/s Meds Active 2020-0 Kaila kill 07-20 [place] deficit: cg 11:30: [id number] 00 Musculoskel transfer Musculoske Active 2020-0 Kaila etal assistance letal 07-20 [place] required 11:30: [id number] 00 Musculoskel requires Musculoske Active 2020-0 Kaila etal human letal 07-20 [place] assist to 11:30: [id number] leave home 00 Cath/Ostomy k/s Cath\Ostom Active 2020-0 Kaila /GI deficit: y\GI Care 07-20 [place] cath/ost/GI 11:30: [id number] care - pt 00 Cath/Ostomy k/s Cath\Ostom Active 2020-0 Kaila /GI deficit: y\GI Care 07-20 [place] cath/ost/GI 11:30: [id number] care - cg 00 Respiratory lung sounds Respirator Active 2019-0 Shreya deficit y 07-22 [place] 11:30: [id number] 00 Safety can be left Safety Active 2019-0 Shreya alone for 07-22 Ethan only short 11:30: [id number] periods 00 Bed mobility/tr PT/OT: Bed Resolve 2019-07-26 Archie Mobility/Tr tony Mobility/T d 07-25 12:47:00 Chelo jimenez device ransfer 12:47: [id number] present 00 Bed transfer PT/OT: Bed Resolve 2019-07-26 Archie Mobility/Tr deficit: Mobility/T d 07-25 12:47:00 Chelo jimenez shower/tub ransfer 12:47: [id number] 00 Bed transfer PT/OT: Bed Resolve 2019-07-26 Archie Mobility/Tr deficit: Mobility/T d 07-25 12:47:00 Chelo jimenez vehicle ransfer 12:47: [id number] 00 Bed knowledge/s PT/OT: Bed Resolve 2019-07-26 Archie Mobility/Tr kill Mobility/T d 07-25 12:47:00 Kobziewicz ansfer deficit: pt ransfer 12:47: [id number] 00 Balance/End balance/residence life coordinator PT/OT: Active Archie urance rdination Balance/En 07-25 Kobziewicz deficit durance 12:47: [id number] 00 Gait/Locomo stair PT/OT: Active Archie tion management Gait/Locom 07-25 Kobziewicz problems req otion 12:47: [id number] 00 Gait/Locomo gait PT/OT: Active Archie tion assistive Gait/Locom 07-25 Kobziewicz problems device otion 12:47: [id number] present 00 Gait/Locomo gait PT/OT: Active Archie tion deficit Gait/Locom 07-25 Kobziewicz problems otion 12:47: [id number] 00 Safety fire risk: Safety Active Shreya smoking/O2 07-27 Ethan in use 11:15: [id number] 00 Safety fire risk Safety Active Shreya present 07-27 [place] 11:15: [id number] 00 Medication potential Meds Active Shreya clinically 07-27 Ethan significant 11:15: [id number] medication 00 issue Allergies, Adverse Reactions, Alerts [...] Observation Time Observation Value Comments SYSTOLIC mm[Hg] 2019-07-30 18:11:19 120 mm[Hg] mm[Hg] Method: Sit SYSTOLIC mm[Hg] 2019-07-21 18:11:10 120 mm[Hg] mm[Hg] Method: Stand DIASTOLIC mm[Hg] 2019-07-30 18:11:19 78 mm[Hg] mm[Hg] Method: Sit DIASTOLIC mm[Hg] 2019-07-21 18:11:10 80 mm[Hg] mm[Hg] Method: Stand PULSE 2019-07-30 18:11:19 50 /min /min RESP RATE 2019-07-30 18:11:19 18 /min /min TEMP 2019-07-30 18:11:19 97.8 [degF] Procedures This patient has no known procedures. Results Test Description Test Time Test Comments Text Results Atomic Results Result Comments Serum or plasma calcium 2019-07-19 10:45:00 Identifier 91729-4 Result Unknown measurement (mass/volume) Time 2019-07-19 10:45:00 Test Item Value Reference Range Comments Serum or plasma calcium measurement (mass/volume) (test 10.0 mg/dL Unknown Unknown F code = 12079-7) Ordering Physician UnknownSerum or plasma magnesium measurement (mass/volume) 2019-07-19 10:45:00Identifier 97442-7 Result Time 2019-07-19 10:45:00Unknown Test Item Value Reference Range Comments Serum or plasma magnesium measurement 1.9 mg/dL Unknown Unknown F (mass/volume) (test code = 44815-8) Ordering Physician UnknownSerum or plasma carbon dioxide, [...] Ordering Physician UnknownSerum or plasma urea nitrogen/creatinine [id number]- 30 10:45:00Identifier 3097-3 Result Time 2019-07-19 10:45:00Unknown Test Item Value Reference Range Comments Serum or plasma urea nitrogen/creatinine 30.7 Unknown Unknown F ratio (test code = 3097-3) Ordering Physician UnknownAutomated blood platelet mean volume uvknlrvwlhr0150- 03-30 10:45:00Identifier 90253-9 Result Time 2019-07-19 10:45:00Unknown Test Item Value Reference Range Comments Automated blood platelet mean volume 7.4 fL Unknown Unknown F measurement (test code = 00454-9) Ordering Physician UnknownSerum or plasma anion [id number] 10:45: 00Identifier 77216-6 Result Time 2019-07-19 10:45:00Unknown Test Item Value Reference Range Comments Serum or plasma anion gap (test code = 10 mmol/L Unknown Unknown F 07147-9) Ordering Physician UnknownAutomated blood leukocytes count corrected for nucleated erythrocytes (number/volume)2019-07-19 10:45:00Identifier 31065-3 Result Time 2019-07-19 10:45:00Unknown Test Item Value Reference Range Comments Automated blood leukocytes count 7.9 10^3/uL Unknown Unknown F corrected for nucleated erythrocytes (number/volume) (test code = 86925-8) Ordering Physician UnknownAutomated blood nucleated erythrocytes nuppduojf0513- 03-30 10:45:00Identifier 62845-8 Result Time 2019-07-19 10:45:00Unknown Test Item Value Reference Range Comments Automated blood nucleated erythrocytes 0.1 Unknown Unknown F detection (test code = 82627-7) Ordering Physician UnknownAutomated blood hematocrit (percentage)2019-07-19 10: 45:00Identifier 4544-3 Result Time 2019-07-19 10:45:00Unknown Test Item Value Reference Range Comments Automated blood hematocrit (percentage) (test 33 % Unknown Unknown F code = 4544-3) Ordering Physician UnknownEstimated glomerular filtration rate (GFR) non- Umonyhft6937-20-96 10:45:00Identifier 29609-8 Result Time 2019-07-19 10: 45:00Unknown Test Item Value Reference Range Comments Estimated glomerular filtration rate (GFR) 41.2 Unknown Unknown F non- (test code = 46715-5) Ordering Physician UnknownAutomated blood monocytes/100 doynntdaan6125-98-16 10: 45:00Identifier 5905-5 Result Time 2019-07-19 10:45:00Unknown [...] = 704-7) Ordering Physician UnknownAutomated blood basophils/100 czzameotzn0464-22-43 10: 45:00Identifier 706-2 Result Time 2019-07-19 10:45:00Unknown [...] = 711-2) Ordering Physician UnknownAutomated blood eosinophils/100 bffpwkvdbp0121-50-29 10:45:00Identifier 713-8 Result Time 2019-07-19 10:45:00Unknown Test [...] = 731-0) Ordering Physician UnknownAutomated blood lymphocytes/100 oaoytyvwud0021-79-08 10:45:00Identifier 736-9 Result Time 2019-07-19 10:45:00Unknown Test Item Value Reference Range Comments Automated blood lymphocytes/100 leukocytes 3.0 % Unknown Unknown F (test code = 736-9) Ordering Physician UnknownBlood monocytes automated count (number/volume)2019-06 10:45:00Identifier 742-7 Result Time 2019-07-19 10:45:00Unknown Test Item Value Reference Range Comments Blood monocytes automated count 0.4 10^3/ul Unknown Unknown F (number/volume) (test code = 742-7) Ordering Physician UnknownAutomated blood neutrophils/100 gptvfiwtlb4631-39-61 10:45:00Identifier 770-8 Result Time 2019-07-19 10:45:00Unknown Test [...] UnknownAutomated erythrocyte mean corpuscular hemoglobin concentration measurement (mass/scc9456-95-07 10:45:00Identifier 786-4 Result Time 2019-07-19 10:45:00Unknown Test Item Value Reference Range Comments Automated erythrocyte mean corpuscular 33 g/dL Unknown Unknown F hemoglobin concentration measurement (mass/vol (test code = 786-4) Ordering Physician UnknownAutomated erythrocyte mean corpuscular fyaoom8869-63- 30 10:45:00Identifier 787-2 Result Time 2019-07-19 10:45:00Unknown Test Item Value Reference Range Comments Automated erythrocyte mean corpuscular volume 91 fL Unknown Unknown F (test code = 787-2) Ordering Physician UnknownAutomated erythrocyte distribution width stwag8173-98- 30 10:45:00Identifier 788-0 Result Time 2019-07-19 10:45:00Unknown [...] code = 789-8) Ordering Physician UnknownLymphocyte proliferation [id number] 10:45: 00Identifier HPU1462 Result Time 2019-07-19 10:45:00Unknown Test Item Value Reference Range Comments Lymphocyte proliferation test (test 7.1 10^3/ul Unknown Unknown F code = FPX9867) Ordering Physician UnknownUrine urobilinogen measurement (units/volume) by test xmtyz2933-19-96 12:30:00Identifier 13521-6 Result Time 2019-07-17 12:30: 00Unknown Test Item Value Reference Range Comments Urine urobilinogen measurement Negative Unknown Unknown F (units/volume) by test strip (test code = 76128-5) Ordering Physician UnknownUrine bacteria detection by automated owktol1274-61- 28 12:30:00Identifier 53249-2 Result Time 2019-07-17 12:30:00Unknown Test Item Value Reference Range Comments Urine bacteria detection by automated Absent Unknown Unknown F method (test code = 96039-8) Ordering Physician UnknownUrine total bilirubin detection by automated test wkrjp1286-68-93 12:30:00Identifier 88496-9 Result Time 2019-07-17 12:30: 00Unknown Test Item Value Reference Range Comments Urine total bilirubin detection by Negative Unknown Unknown F automated test strip (test code = 66854-0) Ordering Physician UnknownUrine clarity by refractometry vnopqcxsh7781-26-58 12: 30:00Identifier 81583-7 Result Time 2019-07-17 12:30:00Unknown Test Item Value Reference Range Comments Urine clarity by refractometry automated Cloudy Unknown Unknown F (test code = 43919-4) Ordering Physician UnknownColor of Urine by Gsoo8360-16-50 12:30:00Identifier 91654-3 Result Time 2019-07-17 12:30:00Unknown Test Item Value Reference Range Comments Color of Urine by Auto (test code = Yellow Unknown Unknown F 13838-3) Ordering Physician UnknownUrine glucose detection by automated test oqdng3631-06 -28 12:30:00Identifier 88342-8 Result Time 2019-07-17 12:30:00Unknown Test Item Value Reference Range Comments Urine glucose detection by automated test Negative Unknown Unknown F strip (test code = 93404-4) Ordering Physician UnknownKetones [Mass/volume] in Urine by Automated test ivgys5310-16-75 12:30:00Identifier 56983-9 Result Time 2019-07-17 12:30: 00Unknown Test Item Value Reference Range Comments Ketones [Mass/volume] in Urine by Negative Unknown Unknown F Automated test strip (test code = 85813-7) Ordering Physician UnknownUrine nitrite detection by automated test nbhee6261-57 -28 12:30:00Identifier 70448-1 Result Time 2019-07-17 12:30:00Unknown Test Item Value Reference Range Comments Urine nitrite detection by automated test Positive Unknown Unknown F strip (test code = 28813-3) Ordering Physician UnknownProtein [Mass/volume] in Urine by Automated test anhsk7973-92-17 12:30:00Identifier 00688-8 Result Time 2019-07-17 12:30: 00Unknown Test Item Value Reference Range Comments Protein [Mass/volume] in Urine by Negative Unknown Unknown F Automated test strip (test code = 85013-5) Ordering Physician UnknownSpecific gravity of Urine by Refractometry agrtnypzs9820-52-15 12:30:00Identifier 96108-0 Result Time 2019-07-17 12:30: 00Unknown Test Item Value Reference Range Comments Specific gravity of Urine by Refractometry 1.009 Unknown Unknown F automated (test code = 00511-8) Ordering Physician UnknownUrine erythrocytes detection by automated bsflqm517707-16 12:30:00Identifier 66014-8 Result Time 2019-07-17 12:30:00Unknown Test Item Value Reference Range Comments Urine erythrocytes detection by 3+(>10/hpf) Unknown Unknown F automated method (test code = 46912-8) Ordering Physician UnknownUrine leukocytes detection by automated oiempw2182-84- 28 12:30:00Identifier 45848-4 Result Time 2019-07-17 12:30:00Unknown Test Item Value Reference Range Comments Urine leukocytes detection by 3+(>20/hpf) Unknown Unknown F automated method (test code = 56882-8) Ordering Physician UnknownUrine hemoglobin detection by test srdku0823-16-20 12: 30:00Identifier 5794-3 Result Time 2019-07-17 12:30:00Unknown Test Item Value Reference Range Comments Urine hemoglobin detection by test strip (test 3+ Unknown Unknown F code = 5794-3) Ordering Physician UnknownUrine leukocyte esterase detection by automated test drluo9305-03-09 12:30:00Identifier 18078-0 Result Time 2019-07-17 12:30: 00Unknown Test Item Value Reference Range Comments Urine leukocyte esterase detection by automated 3+ Unknown Unknown F test strip (test code = 69653-2) Ordering Physician UnknownSerum or plasma vitamin B12 [...] plasma troponin i.cardiac measurement (mass/ volume)2019-07-16 21:08:00Identifier 74941-1 Result Time 2019-07-16 21:08: 00Unknown Test Item Value Reference Range Comments Serum or plasma troponin i.cardiac 0.37 ng/mL Unknown Unknown F measurement (mass/volume) (test code = 30648-3) Ordering Physician UnknownSerum or plasma alanine aminotransferase measurement ( enzymatic activity/volume)2019-07-16 14:12:00Identifier 1742-6 Result Time 07-15 14:12:00Unknown Test Item Value Reference Range Comments Serum or plasma alanine aminotransferase 6 U/L Unknown Unknown F measurement (enzymatic activity/volume) (test code = 1742-6) Ordering Physician UnknownSerum or plasma albumin/globulin mass offnp7702-80-75 14:12:00Identifier 1759-0 Result Time 2019-07-16 14:12:00Unknown Test [...] Ordering Physician UnknownBilirubin.indirect [Mass/volume] in Serum or Cuceib9040-78-77 14:12:00Identifier 1970-04 Result Time 2019-07-16 14:12: 00Unknown [...] (test code = 1974-05) Ordering Physician UnknownPCO2 vvtrqm4940-96-56 14:12:00Identifier 2020-07 Result Time 2019-07-16 14:12:00Unknown Test Item Value Reference Range Comments PCO2 venous (test code = 2020-07) 45 mmHg Unknown Unknown F Ordering Physician UnknownSerum or plasma high density lipoprotein (HDL) cholesterol innssrpswdh6562-31-37 14:12:00Identifier 2084-12 Result Time 14:12:00Unknown Test Item [...] (test code = 2571-8) Ordering Physician UnknownPO2 rkyxgh9158-93-89 14:12:00Identifier 2705-2 Result Time 2019-07-16 14:12:00Unknown Test Item Value Reference Range Comments PO2 venous (test code = 2705-2) 39.0 mmHg Unknown Unknown F Ordering Physician UnknownVenous blood pH nqlzwzucpew1966-90-84 14:12: 00Identifier 2746-6 Result Time 2019-07-16 14:12:00Unknown [...] natriuretic peptide B measurement ( mass/volume)2019-07-16 14:12:00Identifier 74962-1 Result Time 2019-07-16 14:12: 00Unknown Test Item Value Reference Range Comments Serum or plasma natriuretic peptide B 849 pg/mL Unknown Unknown F measurement (mass/volume) (test code = 37826-3) Ordering Physician UnknownVenous blood oxygen saturation calculated from oxygen partial oywdlifg3379-22-09 14:12:00Identifier 78269-2 Result Time 2019-07-16 14: 12:00Unknown Test Item Value Reference Range Comments Venous blood oxygen saturation calculated 66.2 % Unknown Unknown F from oxygen partial pressure (test code = 77582-4) Ordering Physician UnknownSerum or plasma albumin measurement by bromocresol green (BCG) dye binding method (nr6538-16-60 14:12:00Identifier 66274-3 Result Time 2019-07-16 14:12:00Unknown Test Item Value Reference Range Comments Serum or plasma albumin measurement by 3.7 g/dL Unknown Unknown F bromocresol green (BCG) dye binding method (ma (test code = 19167-5) Ordering Physician UnknownSerum or plasma alkaline phosphatase measurement ( enzymatic activity/volume)2019-07-16 14:12:00Identifier 6768-6 Result Time 07-15 14:12:00Unknown Test Item Value Reference Range Comments Serum or plasma alkaline phosphatase 69 U/L Unknown Unknown F measurement (enzymatic activity/volume) (test code = 6768-6) Ordering Physician UnknownInfluenza virus A RNA detection by probe and target amplification eqtvvt4942-11-62 13:18:00Identifier 88890-4 Result Time 13:18:00Unknown Test Item Value Reference Range Comments Influenza virus A RNA detection by probe Negative Unknown Unknown F and target amplification method (test code = 05808-6) Ordering Physician UnknownInfluenza virus B RNA detection by probe and target amplification rrbick1652-48-58 13:18:00Identifier 43655-5 Result Time 13:18:00Unknown Test Item Value Reference Range Comments Influenza virus B RNA detection by probe Negative Unknown Unknown F and target amplification method (test code = 92045-8) Ordering Physician Unknown
--- OUTSIDE RECORDS SUMMARY | 2019-08-06 13:51 | XMS REPORT | Continuity of Care Document ---
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 07/03/2018 1 Unit Injection Injection Kongabotulinumfuentesxin Sergio Frye M.D. 02/18/2018 1 Unit Injection Injection Kongabotulinumfuentesxin Sergio Frye M.D. 11/17/2017 1 Unit Injection Injection Kongabotulinumfuentesxin Sergio Frye M.D. 08/06/2017 1 Unit Injection Injection Kongabotulinumfuentesxin Sergio Frye M.D. 08/28/2016 1 Unit Injection Injection Whitneyotulinumfuentesxin Sergio Frye M.D. 08/28/2016 1 Unit Injection Injection Whitneyotulinumfuentesxin Sergio Frye M.D. 08/28/2016 1 Unit Injection Injection Whitneyotulinumfuentesxin Sergio Frye M.D. 05/30/2016 1 Unit Injection Injection Whitneyotulinumfuentesxin Sergio Frye M.D. 02/26/2016 1 Unit Injection Injection WhitneyotulinumSergio Johnson M.D. 06/27/2015 1 Unit Injection Injection Sergio Smith M.D. 03/08/2015 1 Unit Injection Injection Sergio Smith M.D. 12/06/2014 1 Unit Injection Injection WhitneyotulinumSergio Johnson M.D. 08/23/2014 1 Unit Injection Injection Whitneyotulinumfuentesxin Sergio Frye M.D. 05/24/2014 1 Unit Injection Injection Onabotulinumtoxin Sergio Frye M.D. 02/16/2014 1 Unit Injection Injection Onabotulinumtoxin Uday, Sergio Poe M.D. 11/09/2013 1 Unit Injection Injection Onabotulinumtoxin Sergio Frye M.D. 08/10/2013 1 Unit Injection Injection Onabotulinumfuentesxin Sergio Frye M.D. 05/12/2013 1 Unit Injection Injection Onabotulinumtoxin Sergio Frye M.D. 02/09/2013 1 Unit Injection Injection Onabotulinumfuentesxin Sergio Frye M.D. 11/03/2012 1 Unit Injection Injection Onabotulinumfuentesxin Sergio Frye M.D. 07/29/2012 1 Unit Injection Injection Onabotulinumtoxin Sergio Frye M.D. 07/29/2012 1 Unit Injection Injection Onabotulinumtoxin Sergio Frye M.D. 04/28/2012 1 Unit Injection Injection Onabotulinumtoxin Sergio Frye M.D. 04/28/2012 1 Unit Injection Injection Onabotulinumtoxin Sergio Frye M.D. 01/22/2012 1 Unit Injection Injection Onabotulinumtoxin Sergio Frye M.D. 01/22/2012 1 Unit Injection Immunizations CPT Code Status Date Vaccine Lot # [id number] Given 02/26/2016 Influ Virus Vaccine, Quadrivalent, Split Virus, Im [id number] Fluzone not PF [id number] Given 02/20/2015 Fluvirin [...] Information Available Procedures Date Code Description Status 03/04/2019 04285 EKG, Interpretation Only Completed 03/04/2019 51713 Thoracentesis W/ Img Guidance Completed 04/09/2001 [id number] Diabetic Retinal Eye Exam Completed Medical Devices Description No Information Available Encounters Type Date Location Provider Dx Diagnosis Office Visit 07/20/2019 [facility] [place] Prabhakar, N39.0 Urinary tract 8:16a Assoc,pc PA infection, site Hospitalists not specified B96.4 Proteus (mirabilis) (morganii) causing dis classd elswhr I50.31 Acute diastolic (congestive) heart failure J96.21 Acute and chronic respiratory failure with hypoxia I48.20 Chronic atrial fibrillation, unspecified K21.9 Gastro-esophageal reflux disease without esophagitis Z03.818 Encntr for obs for susp expsr to oth biolg agents ruled out Office Visit 07/19/2019 8:16a [facility] [place] J96.21 Acute and chronic Assoc,CHING Bender respiratory Hospitalists failure with hypoxia N39.0 Urinary tract infection, site not specified T83.511A I/I react d/t indwelling urethral catheter, init F32.9 Major depressive disorder, single episode, unspecified Office Visit 07/18/2019 8:15a [facility] [place] J96.21 Acute and chronic Assoc,CHING Bender respiratory Hospitalists failure with hypoxia D64.9 Anemia, unspecified N39.0 Urinary tract infection, site not specified T83.511A I/I react d/t indwelling urethral catheter, init Office Visit 07/17/2019 8:15a [facility] [place] J96.21 Acute and chronic Assoc,CHING Bender respiratory Hospitalists failure with hypoxia I50.9 Heart failure, unspecified I48.91 Unspecified atrial fibrillation D64.9 Anemia, unspecified Office Visit 07/16/2019 [facility] Carolann Olivier, N17.9 Acute kidney 8:14a Assoc,pc TANK DRIVER failure, Hospitalists unspecified J44.1 Chronic obstructive pulmonary disease w (acute) exacerbation I50.9 Heart failure, unspecified D64.9 Anemia, unspecified I48.91 Unspecified atrial fibrillation Office Visit 03/12/2019 [facility] Antoinette I11.0 Hypertensive heart 9:24a Assoc,CHING Hernandez-Sharif disease with heart Hospitalists failure R09.02 Hypoxemia I50.9 Heart failure, unspecified R40.0 Somnolence J44.9 Chronic obstructive pulmonary disease, unspecified Office Visit 03/09/2019 9:22a [facility] Odettetony Fischer, R40.0 Somnolence Assoc,nisha FLOWER Hospitalists J96.20 Acute and chr resp failure, unsp w hypoxia or hypercapnia I48.91 Unspecified atrial fibrillation R33.9 Retention of urine, unspecified J44.9 Chronic obstructive pulmonary disease, unspecified Office Visit 03/08/2019 [facility] Cale Parham I11.0 Hypertensive heart 8:53a Assnisha munoz M.D.,FACP disease with heart Hospitalists failure I50.33 Acute on chronic diastolic (congestive) heart failure I48.91 Unspecified atrial fibrillation J90 Pleural effusion, not elsewhere classified R33.9 Retention of urine, unspecified J96.91 Respiratory failure, unspecified with hypoxia Office Visit 03/07/2019 8:53a [facility] Juanis Polanco, J96.21 Acute and chronic nisha Martínez MD respiratory Hospitalists failure with hypoxia I50.9 Heart failure, unspecified R33.9 Retention of urine, unspecified Office Visit 03/06/2019 8:52a [facility] Juanis Polanco, R33.9 Retention of nisha Martínez MD urine, unspecified Hospitalists I11.0 Hypertensive heart disease with heart failure I50.33 Acute on chronic diastolic (congestive) heart failure Office Visit 03/05/2019 3:45p Pulmonology And Kathy J90 Pleural effusion, Sleep Services Of MD Norma not elsewhere Manager Laboratory classified J96.91 Respiratory failure, unspecified with hypoxia J44.9 Chronic obstructive pulmonary disease, unspecified Office Visit 03/05/2019 8:52a [facility] Juanis Diledith, R33.9 Retention of nisha Martínez MD urine, unspecified Hospitalists I11.0 Hypertensive heart disease with heart failure I50.33 Acute on chronic diastolic (congestive) heart failure Office Visit 03/04/2019 1:24p Pulmonology And Kathy J90 Pleural effusion, Sleep Services Of MD Norma not elsewhere Manager Laboratory classified Office Visit 03/04/2019 8:52a [facility] Elliot Polanco MD R33.9 Retention of Assoc,pc urine, Hospitalists unspecified I11.0 Hypertensive heart disease with heart failure I50.33 Acute on chronic diastolic (congestive) heart failure J90 Pleural effusion, not elsewhere classified Office Visit 03/03/2019 8:51a [facility] Elliot Polanco, R33.9 Retention of Assocnisha MD urine, unspecified Hospitalists I11.0 Hypertensive heart disease with heart failure I50.33 Acute on chronic diastolic (congestive) heart failure J90 Pleural effusion, not elsewhere classified Office Visit 03/03/2019 1:23p Pulmonology And Kathy J90 Pleural effusion, Sleep Services Of MD Norma not elsewhere Manager Laboratory classified Office Visit 03/02/2019 8:51a [facility] Elliot Polanco MD J96.91 Respiratory Assoc,pc failure, Hospitalists unspecified with hypoxia I11.0 Hypertensive heart disease with heart failure J90 Pleural effusion, not elsewhere classified Office Visit 03/01/2019 8:51a [facility] Elliot Polanco, R33.9 Retention of nisha Martínez MD urine, unspecified Hospitalists J96.91 Respiratory failure, unspecified with hypoxia I11.0 Hypertensive heart disease with heart failure I48.91 Unspecified atrial fibrillation Office Visit 02/28/2019 8:50a [facility] Robinson I11.0 Hypertensive heart Assoc,nisha Lynch M.D. disease with heart Hospitalists failure I50.33 Acute on chronic diastolic (congestive) heart failure J90 Pleural effusion, not elsewhere classified M25.569 Pain in unspecified knee Office Visit 02/27/2019 8:50a [facility] Robinson I11.0 Hypertensive heart Assoc,nisha Lynch M.D. disease with heart Hospitalists failure I50.33 Acute on chronic diastolic (congestive) heart failure J90 Pleural effusion, not elsewhere classified E11.9 Type 2 diabetes mellitus without complications M25.569 Pain in unspecified knee Office Visit 02/26/2019 8:49a [facility] Asia I11.0 Hypertensive heart Assoc,nisha Avendano MD disease with heart Hospitalists failure I50.33 Acute on chronic diastolic (congestive) heart failure R09.02 Hypoxemia Office Visit 02/25/2019 8:49a [facility] Robinson J96.91 Respiratory Assocnisha M.D. failure, Hospitalists unspecified with hypoxia I95.89 Other hypotension I11.0 Hypertensive heart disease with heart failure I50.33 Acute on chronic diastolic (congestive) heart failure J90 Pleural effusion, not elsewhere classified Office Visit 02/24/2019 8:49a [facility] Robinson J96.91 Respiratory Assocnisha M.D. failure, Hospitalists unspecified with hypoxia I11.0 Hypertensive heart disease with heart failure I50.33 Acute on chronic diastolic (congestive) heart failure I95.9 Hypotension, unspecified I48.91 Unspecified atrial fibrillation J90 Pleural effusion, not elsewhere classified N39.0 Urinary tract infection, site not specified M25.569 Pain in unspecified knee Office Visit 02/23/2019 [facility] Antoinette I48.91 Unspecified atrial 8:48a Assoc,nisha Lafleur PA-C fibrillation Hospitalists M25.562 Pain in left knee M25.561 Pain in right knee E11.9 Type 2 diabetes mellitus without complications M62.838 Other muscle spasm B37.89 Other sites of candidiasis W19.xxxA Unspecified fall, initial encounter Assessments Date Code Description Provider 07/20/2019 N39.0 Urinary tract infection, site not CHING Arriaza specified 07/20/2019 B96.4 Proteus (mirabilis) (morganii) as the CHING Arriaza cause of diseases classified elsewhere 07/20/2019 I50.31 Acute diastolic (congestive) heart CHING Arriaza failure 07/20/2019 J96.21 Acute and chronic respiratory failure CHING Arriaza with hypoxia 07/20/2019 I48.20 Chronic atrial fibrillation, CHING Arriaza unspecified 07/20/2019 K21.9 Gastro-esophageal reflux disease CHING Arriaza without esophagitis 07/20/2019 Z03.818 Encounter for observation for CHING Arriaza suspected exposure to other biological agents ruled out 07/19/2019 J96.21 Acute and chronic respiratory failure CHING Arriaza with hypoxia 07/19/2019 N39.0 Urinary tract infection, site not CHING Arriaza specified 07/19/2019 T83.511A Infection and inflammatory reaction CHING Arriaza due to indwelling urethral catheter, initial encounter 07/19/2019 F32.9 Major depressive disorder, single CHING Arriaza episode, unspecified 07/18/2019 J96.21 Acute and chronic respiratory failure CHING Arriaza with hypoxia 07/18/2019 D64.9 Anemia, unspecified CHING Arriaza 07/18/2019 N39.0 Urinary tract infection, site not CHING Arriaza specified 07/18/2019 T83.511A Infection and inflammatory reaction CHING Arriaza due to indwelling urethral catheter, initial encounter 07/17/2019 J96.21 Acute and chronic respiratory failure CHING Arriaza with hypoxia 07/17/2019 I50.9 Heart failure, unspecified CHING Arriaza 07/17/2019 I48.91 Unspecified atrial fibrillation CHING Arriaza 07/17/2019 D64.9 Anemia, unspecified CHING Arriaza 07/16/2019 N17.9 Acute kidney failure, unspecified Carolann Olivier, TANK DRIVER 07/16/2019 J44.1 Chronic obstructive pulmonary disease Carolann Olivier, BREA with (acute) exacerbation 07/16/2019 I50.9 Heart failure, unspecified Carolann Olivier, TANK DRIVER 07/16/2019 D64.9 Anemia, unspecified Carolann Olivier, TANK DRIVER 07/16/2019 I48.91 Unspecified atrial fibrillation Carolann Olivier, TANK DRIVER 03/12/2019 I11.0 Hypertensive heart disease with heart Antoinette O'giovanna, PA-C failure 03/12/2019 R09.02 Hypoxemia Antoinette O'giovanna, PA-C 03/12/2019 I50.9 Heart failure, unspecified Antoinette O'giovanna, PA-C 03/12/2019 R40.0 Somnolence Antoinette O'giovanna, PA-C 03/12/2019 J44.9 Chronic obstructive pulmonary Natoinette O'giovanna, PA-C disease, unspecified 03/11/2019 J96.21 Acute and chronic respiratory failure Antoinette O'giovanna, PA- C with hypoxia 03/11/2019 I11.0 Hypertensive heart disease with heart Antoinette O'giovanna, PA-C failure 03/11/2019 I50.9 Heart failure, unspecified Antoinette O'giovanna, PA-C 03/11/2019 I48.91 Unspecified atrial fibrillation Antoinette O'giovanna, PA-C 03/11/2019 R33.9 Retention of urine, unspecified Antoinette O'giovanna, PA-C 03/10/2019 J96.21 Acute and chronic respiratory failure Antoinette O'giovanna, PA- C with hypoxia 03/10/2019 I11.0 Hypertensive heart disease with heart Antoinette O'giovanna, PA-C failure 03/10/2019 I50.9 Heart failure, unspecified Antoinette O'giovanna, PA-C 03/10/2019 I48.91 Unspecified atrial fibrillation Antoinette O'giovanna, PA-C 03/10/2019 R33.9 Retention of urine, unspecified Antoinette O'giovanna, PA-C 03/09/2019 R40.0 Somnolence Odettetony Vidalham, PA 03/09/2019 J96.20 Acute and chronic respiratory Odette Fischer, PA failure, unspecified whether with hypoxia or hypercapnia 03/09/2019 I48.91 Unspecified atrial fibrillation Odette Fischer, PA 03/09/2019 R33.9 Retention of urine, unspecified Odette Fischer, PA 03/09/2019 J44.9 Chronic obstructive pulmonary Odette Fischer PA disease, unspecified 03/08/2019 I11.0 Hypertensive heart disease with heart Cale Pardo M.D.,FACP failure 03/08/2019 I50.33 Acute on chronic diastolic Cale Pardo M.D.,FACP (congestive) heart failure 03/08/2019 I48.91 Unspecified atrial fibrillation Cale Pardo M.D., FACP 03/08/2019 J90 Pleural effusion, not elsewhere Cale Pardo M.D.,FACP classified 03/08/2019 R33.9 Retention of urine, unspecified Cale Pardo M.D., FACP 03/08/2019 J96.91 Respiratory failure, unspecified with Cale Pardo M.D.,FACP hypoxia 03/07/2019 J96.21 Acute and chronic respiratory failure Juanis Polanco MD with hypoxia 03/07/2019 I50.9 Heart failure, unspecified Juanis Polanco MD 03/07/2019 R33.9 Retention of urine, unspecified Juanis Polanco MD 03/06/2019 R33.9 Retention of urine, unspecified Juanis Polanco MD 03/06/2019 I11.0 Hypertensive heart disease with heart Juanis Polanco MD failure 03/06/2019 I50.33 Acute on chronic diastolic Juanis Polanco MD (congestive) heart failure 03/05/2019 J90 Pleural effusion, not elsewhere Kathy Green MD classified 03/05/2019 R33.9 Retention of urine, unspecified Juanis Polanco MD 03/05/2019 J96.91 Respiratory failure, unspecified with Kathy Green MD hypoxia 03/05/2019 I11.0 Hypertensive heart disease with heart Juanis Polanco MD failure 03/05/2019 J44.9 Chronic obstructive pulmonary Kathy Green MD disease, unspecified 03/05/2019 I50.33 Acute on chronic diastolic Juanis Polanco MD (congestive) heart failure 03/04/2019 R94.31 Abnormal electrocardiogram [ECG] Sukumar Meza M.D. [EKG] 03/04/2019 J90 Pleural effusion, not elsewhere Kathy Green MD classified 03/04/2019 J90 Pleural effusion, not elsewhere Kathy Green MD classified 03/04/2019 R33.9 Retention of urine, unspecified Juanis Polanco MD 03/04/2019 I11.0 Hypertensive heart disease with heart Juanis Polanco MD failure 03/04/2019 I50.33 Acute on chronic diastolic Juanis Polanco MD (congestive) heart failure 03/04/2019 J90 Pleural effusion, not elsewhere Juanis Polanco MD classified 03/03/2019 J90 Pleural effusion, not elsewhere Kathy Green MD classified 03/03/2019 R33.9 Retention of urine, unspecified Juanis Polanco MD 03/03/2019 I11.0 Hypertensive heart disease with heart Juanis Polanco MD failure 03/03/2019 I50.33 Acute on chronic diastolic Juanis Polanco MD (congestive) heart failure 03/03/2019 J90 Pleural effusion, not elsewhere Juanis Polanco MD classified 03/02/2019 J96.91 Respiratory failure, unspecified with Juanis Polanco MD hypoxia 03/02/2019 I11.0 Hypertensive heart disease with heart Juanis Polanco MD failure 03/02/2019 J90 Pleural effusion, not elsewhere Juanis Polanco MD classified 03/01/2019 R33.9 Retention of urine, unspecified Juanis Polanco MD 03/01/2019 J96.91 Respiratory failure, unspecified with Juanis Polanco MD hypoxia 03/01/2019 I11.0 Hypertensive heart disease with heart Juanis Polanco MD failure 03/01/2019 I48.91 Unspecified atrial fibrillation Juanis Polanco MD 02/28/2019 I11.0 Hypertensive heart disease with heart Robinson Lynch M.D. failure 02/28/2019 I50.33 Acute on chronic diastolic Robinson Lynch M.D. (congestive) heart failure 02/28/2019 J90 Pleural effusion, not elsewhere Robinson Lynch M.D. classified 02/28/2019 M25.569 Pain in unspecified knee Robinson Lynch M.D. 02/27/2019 I11.0 Hypertensive heart disease with heart Robinson Lynch M.D. failure 02/27/2019 I50.33 Acute on chronic diastolic Robinson Lynch M.D. (congestive) heart failure 02/27/2019 J90 Pleural effusion, not elsewhere Robinson Lynch M.D. classified 02/27/2019 E11.9 Type 2 diabetes mellitus without Robinson Lynch M.D. complications 02/27/2019 M25.569 Pain in unspecified knee Robinson Lynch M.D. 02/26/2019 I11.0 Hypertensive heart disease with heart Asia Avendano MD failure 02/26/2019 I50.33 Acute on chronic diastolic Asia Avendano MD (congestive) heart failure 02/26/2019 R09.02 Hypoxemia Asia Avendano MD 02/25/2019 J96.91 Respiratory failure, unspecified with Robinson Lynch M.D. hypoxia 02/25/2019 I95.89 Other hypotension Robinson Lynch M.D. 02/25/2019 I11.0 Hypertensive heart disease with heart Robinson Lynch M.D. failure 02/25/2019 I50.33 Acute on chronic diastolic Robinson Lynch M.D. (congestive) heart failure 02/25/2019 J90 Pleural effusion, not elsewhere Robinson Lynch M.D. classified 02/24/2019 J96.91 Respiratory failure, unspecified with Robinson Lynch M.D. hypoxia 02/24/2019 I11.0 Hypertensive heart disease with heart Robinson Lynch M.D. failure 02/24/2019 I50.33 Acute on chronic diastolic Robinson Lynch M.D. (congestive) heart failure 02/24/2019 I95.9 Hypotension, unspecified Robinson Lynch M.D. 02/24/2019 I48.91 Unspecified atrial fibrillation Robinson Lynch M.D. 02/24/2019 J90 Pleural effusion, not elsewhere Robinson Lynch M.D. classified 02/24/2019 N39.0 Urinary tract infection, site not Robinson Lynch M.D. specified 02/24/2019 M25.569 Pain in unspecified knee Robinson Lynch M.D. 02/23/2019 I48.91 Unspecified atrial fibrillation Antoinette Lafleur PA-C 02/23/2019 M25.562 Pain in left knee Antoinette Lafleur PA-C 02/23/2019 M25.561 Pain in right knee Antoinette Lafleur PA-C 02/23/2019 E11.9 Type 2 diabetes mellitus without Antoinette Lafleur PA-C complications 02/23/2019 M62.838 Other muscle spasm Antoinette Lafleur PA-C 02/23/2019 B37.89 Other sites of candidiasis Antoinette Lafleur PA-C 02/23/2019 W19.xxxA Unspecified fall, initial encounter GHASSAN Del Real Plan of Treatment No Information Available Functional Status Description No Information Available Mental Status Description No Information Available Referrals Description No Information Available
--- OUTSIDE RECORDS SUMMARY | 2019-08-06 13:51 | XMS REPORT ---
:1945 Author Organization [facility] Care Team Providers Name Role Phone Unavailable Unavailable Unavailable Problems Condition Condition Condition Status Onset Resolution Last Treating Comments Name Details Category Date Date Treatment Clinician Date Acute Acute Diagnosis Active Chante pulmonary pulmonary 3- Carrier RN edema edema Respiratory lung Respiratory Active Kaila sounds 07-15 Shelby deficit 10:30: [id number] Allergies, Adverse Reactions, Alerts Allergy Allergy Status Severity Reaction(s) Onset Inactive Treating Comments Name Type Date Date Clinician Tomato Unknown Active Unknown Reaction 2017-04 Amira Suazo Unknown -03 Jonnathan [id number] Medications Ordered Filled Start Stop Current Ordering Indication Dosage Frequency Signature Comments Components Medication Medication Date Date Medication? Clinician (SIG) Name Name No Known No Known No None None None Medications Medications For This For This Patient Patient Vital Signs Vital Name Observation Time Observation Value Comments SYSTOLIC mm[Hg] 2019-07-16 18:11:05 168 mm[Hg] mm[Hg] Method: Sit SYSTOLIC mm[Hg] 2019-07-16 18:11:05 168 mm[Hg] mm[Hg] Method: Stand DIASTOLIC mm[Hg] 2019-07-16 18:11:05 110 mm[Hg] mm[Hg] Method: Sit DIASTOLIC mm[Hg] 2019-07-16 18:11:05 110 mm[Hg] mm[Hg] Method: Stand PULSE 2019-07-16 18:11:05 168 /min /min RESP RATE 2019-07-16 18:11:05 24 /min /min TEMP 2019-07-16 18:11:05 98.1 [degF] Procedures This patient has no known procedures. Results This patient has no known results.
--- OUTSIDE RECORDS SUMMARY | 2019-08-06 13:51 | XMS REPORT | Continuity of Care Document ---
:1945 External Reference #:[id number] Author Name CHING Arriaza (transmitted by agent of provider Aye Ni) Address [address] [place] [address] Care Team Providers Name Role Phone Morgan Mccarthy MD - Family Medicine Care Team Information [facility] [phone] Problems Active Problems Provider Date Type 2 [...] Unknown ETOH Use Drinks Alcoholic Beverages at [place] Rarely Tobacco Use Start: Unknown Patient is [...] CPT Code Status Date Vaccine Lot # [id number] Given 02/26/2016 Influ Virus Vaccine, Quadrivalent, Split Virus, Im [id number] Fluzone not PF [id number] Given 02/20/2015 Fluvirin [...] Available Procedures Date Code Description Status 03/04/2019 10734 EKG, Interpretation Only Completed 03/04/2019 71886 Thoracentesis W/ Img Guidance Completed 04/09/2001 [id number] Diabetic Retinal Eye Exam Completed Medical Devices Description No Information Available Encounters Type Date Location Provider Dx Diagnosis Office Visit 07/20/2019 [facility] Davis Prabhakar, N39.0 Urinary tract 8:16a Assoc,pc PA infection, site Hospitalists not specified B96.4 Proteus (mirabilis) (morganii) causing dis classd elswhr I50.31 Acute diastolic (congestive) heart failure J96.21 Acute and chronic respiratory failure with hypoxia I48.20 Chronic atrial fibrillation, unspecified K21.9 Gastro-esophageal reflux disease without esophagitis Z03.818 Encntr for obs for susp expsr to oth biolg agents ruled out Office Visit 07/19/2019 8:16a [facility] Davis J96.21 Acute and chronic Assoc,CHING Bender respiratory Hospitalists failure with hypoxia N39.0 Urinary tract infection, site not specified T83.511A I/I react d/t indwelling urethral catheter, init F32.9 Major depressive disorder, single episode, unspecified Office Visit 07/18/2019 8:15a [facility] Davis J96.21 Acute and chronic Assoc,CHING Bender respiratory Hospitalists failure with hypoxia D64.9 Anemia, unspecified N39.0 Urinary tract infection, site not specified T83.511A I/I react d/t indwelling urethral catheter, init Office Visit 07/17/2019 8:15a [facility] Davis J96.21 Acute and chronic Assoc,CHING Bender respiratory Hospitalists failure with hypoxia I50.9 Heart failure, unspecified I48.91 Unspecified atrial fibrillation D64.9 Anemia, unspecified Office Visit 07/16/2019 [facility] Carolann Olivier, N17.9 Acute kidney 8:14a Assoc,pc 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 failure, Hospitalists unspecified J44.1 Chronic obstructive pulmonary disease w (acute) exacerbation I50.9 Heart failure, unspecified D64.9 Anemia, unspecified I48.91 Unspecified atrial fibrillation Office Visit 03/12/2019 [facility] Antoinette I11.0 Hypertensive heart 9:24a Assoc,CHING Hernandez-Sharif disease with heart Hospitalists failure R09.02 Hypoxemia I50.9 Heart failure, unspecified R40.0 Somnolence J44.9 Chronic obstructive pulmonary disease, unspecified Office Visit 03/09/2019 9:22a [facility] Odettetony Fischer, R40.0 Somnolence Assoc,nisha FLOWER Hospitalists J96.20 Acute and chr resp failure, unsp w hypoxia or hypercapnia I48.91 Unspecified atrial fibrillation R33.9 Retention of urine, unspecified J44.9 Chronic obstructive pulmonary disease, unspecified Office Visit 03/08/2019 [facility] Cale Parham I11.0 Hypertensive heart 8:53a Assnisha munoz M.D.,FACP disease with heart Hospitalists failure I50.33 Acute on chronic diastolic (congestive) heart failure I48.91 Unspecified atrial fibrillation J90 Pleural effusion, not elsewhere classified R33.9 Retention of urine, unspecified J96.91 Respiratory failure, unspecified with hypoxia Office Visit 03/07/2019 8:53a [facility] Juanis Polanco, J96.21 Acute and chronic nisha Martínez MD respiratory Hospitalists failure with hypoxia I50.9 Heart failure, unspecified R33.9 Retention of urine, unspecified Office Visit 03/06/2019 8:52a [facility] Juanis Polanco, R33.9 Retention of nisha Martínez MD urine, unspecified Hospitalists I11.0 Hypertensive heart disease with heart failure I50.33 Acute on chronic diastolic (congestive) heart failure Office Visit 03/05/2019 3:45p Pulmonology And Kathy J90 Pleural effusion, [facility] Norma not elsewhere Prototype Carpenter classified J96.91 Respiratory failure, unspecified with hypoxia J44.9 Chronic obstructive pulmonary disease, unspecified Office Visit 03/05/2019 8:52a [facility] Juanis Diledith, R33.9 Retention of nisha Martínez MD urine, unspecified Hospitalists I11.0 Hypertensive heart disease with heart failure I50.33 Acute on chronic diastolic (congestive) heart failure Office Visit 03/04/2019 1:24p Pulmonology And Kathy J90 Pleural effusion, [facility] Norma not elsewhere Prototype Carpenter classified Office Visit 03/04/2019 8:52a [place] Elliot Polanco MD R33.9 Retention of Assoc,pc urine, Hospitalists unspecified I11.0 Hypertensive heart disease with heart failure I50.33 Acute on chronic diastolic (congestive) heart failure J90 Pleural effusion, not elsewhere classified Office Visit 03/03/2019 8:51a [place] Elliot Polanco, R33.9 Retention of Assocnisha MD urine, unspecified Hospitalists I11.0 Hypertensive heart disease with heart failure I50.33 Acute on chronic diastolic (congestive) heart failure J90 Pleural effusion, not elsewhere classified Office Visit 03/03/2019 1:23p Pulmonology And Kathy J90 Pleural effusion, [facility] Norma not elsewhere Prototype Carpenter classified Office Visit 03/02/2019 8:51a [place] Elliot Polanco MD J96.91 Respiratory Assoc,pc failure, Hospitalists unspecified with hypoxia I11.0 Hypertensive heart disease with heart failure J90 Pleural effusion, not elsewhere classified Office Visit 03/01/2019 8:51a [place] Elliot Polanco, R33.9 Retention of nisha Martínez MD urine, unspecified Hospitalists J96.91 Respiratory failure, unspecified with hypoxia I11.0 Hypertensive heart disease with heart failure I48.91 Unspecified atrial fibrillation Office Visit 02/28/2019 8:50a [facility] Robinson I11.0 Hypertensive heart Assoc,nisha Lynch M.D. disease with heart Hospitalists failure I50.33 Acute on chronic diastolic (congestive) heart failure J90 Pleural effusion, not elsewhere classified M25.569 Pain in unspecified knee Office Visit 02/27/2019 8:50a [facility] Robinson I11.0 Hypertensive heart Assoc,nisha Lynch M.D. disease with heart Hospitalists failure I50.33 Acute on chronic diastolic (congestive) heart failure J90 Pleural effusion, not elsewhere classified E11.9 Type 2 diabetes mellitus without complications M25.569 Pain in unspecified knee Office Visit 02/26/2019 8:49a [facility] Asia I11.0 Hypertensive heart Assoc,nisha Avendano MD disease with heart Hospitalists failure I50.33 Acute on chronic diastolic (congestive) heart failure R09.02 Hypoxemia Office Visit 02/25/2019 8:49a [facility] Robinson J96.91 Respiratory Assocnisha M.D. failure, Hospitalists unspecified with hypoxia I95.89 Other hypotension I11.0 Hypertensive heart disease with heart failure I50.33 Acute on chronic diastolic (congestive) heart failure J90 Pleural effusion, not elsewhere classified Office Visit 02/24/2019 8:49a [facility] Robinson J96.91 Respiratory Assocnisha M.D. failure, Hospitalists unspecified with hypoxia I11.0 Hypertensive heart disease with heart failure I50.33 Acute on chronic diastolic (congestive) heart failure I95.9 Hypotension, unspecified I48.91 Unspecified atrial fibrillation J90 Pleural effusion, not elsewhere classified N39.0 Urinary tract infection, site not specified M25.569 Pain in unspecified knee Office Visit 02/23/2019 [facility] Antoinette I48.91 Unspecified atrial 8:48a Assoc,nisha Lafleur [...] N17.9 Acute kidney failure, unspecified Carolann Olivier, 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 07/16/2019 J44.1 Chronic obstructive pulmonary disease Carolann Olivier, BREA with (acute) exacerbation 07/16/2019 I50.9 Heart failure, unspecified Carolann Olivier, 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 07/16/2019 D64.9 Anemia, unspecified Carolann Olivier, 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 07/16/2019 I48.91 Unspecified atrial fibrillation Carolann Olivier, 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 03/12/2019 I11.0 Hypertensive heart disease with heart Antoinette O'giovanna, PA-C failure 03/12/2019 R09.02 Hypoxemia Antoinette O'giovanna, PA-C 03/12/2019 I50.9 Heart failure, unspecified Antoinette O'giovanna, PA-C 03/12/2019 R40.0 Somnolence Antoinette O'giovanna, PA-C 03/12/2019 J44.9 Chronic obstructive pulmonary Antoinette O'giovanna, PA-C disease, unspecified 03/11/2019 J96.21 Acute [...]
--- OUTSIDE RECORDS SUMMARY | 2019-08-06 13:51 | XMS REPORT ---
:1945 Author Organization [facility] Team Providers Name Role Phone Unavailable Unavailable Unavailable Problems Condition Condition Condition Status Onset Resolution Last Treating Comments Name Details Category Date Date Treatment Clinician Date Hypertensiv Hypertensiv Diagnosis Active 2018-04 Shreya e heart and e heart and 05-12 Ethan chronic chronic [id number] kidney kidney disease disease with heart with heart failure and failure and stage 1 stage 1 through through stage 4 stage 4 chronic chronic kidney kidney disease, or disease, or unspecified unspecified chronic chronic kidney kidney disease disease Heart Heart Diagnosis Active 2018-04 Shreya failure, failure, 05-12 Ethan unspecified unspecified [id number] Type 2 Type 2 Diagnosis Active 2018-04 Shreya diabetes diabetes 05-12 Ethan mellitus mellitus [id number] with with diabetic diabetic chronic chronic kidney kidney disease disease Chronic Chronic Diagnosis Active 2018-04 Shreya kidney kidney 05-12 Ethan disease, disease, [id number] unspecified unspecified Unspecified Unspecified Diagnosis Active 2018-04 Shreya atrial atrial 05-12 Ethan fibrillatio fibrillatio [id number] n n Chronic Chronic Diagnosis Active 2018-04 Shreya obstructive obstructive 05-12 Ethan pulmonary pulmonary [id number] disease, disease, unspecified unspecified 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 Active Shreya chronic chronic Ethan kidney kidney [id number] disease disease Obstructive Obstructive Diagnosis Active Shreya sleep apnea sleep apnea Ethan (adult) (adult) [id number] (pediatric) (pediatric) Acute and Acute and Diagnosis Active Shreya chronic chronic Ethan respiratory respiratory [id number] failure failure with with hypoxia hypoxia Lymphedema, Lymphedema, Diagnosis Active Shreya not not Ethan elsewhere elsewhere [id number] classified classified Retention Retention Diagnosis Active Shreya of urine, of urine, Ethan unspecified unspecified 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 without without [id number] dysplasia dysplasia Gastro-esop Gastro-esop Diagnosis Active Shreya hageal hageal Ethan reflux reflux [id number] disease disease without without esophagitis esophagitis Unspecified Unspecified Diagnosis Active Shreya osteoarthri osteoarthri Ethan tis, tis, [id number] unspecified unspecified site site Unspecified Unspecified Diagnosis Active Shreya cataract cataract Ethan [id number] Major Major Diagnosis Active Shreya depressive depressive Ethan disorder, disorder, [id number] single single episode, episode, unspecified unspecified Age-related Age-related Diagnosis Active Shreya osteoporosi osteoporosi Ethan s without s without [id number] current current pathologica pathologica l fracture l fracture Dependence Dependence Diagnosis Active Shreya on on Ethan supplementa supplementa [id number] l oxygen l oxygen [facility] intermission coordinator Diagnosis Active Shreya (current) (current) Ethan use of use of [id number] anticoagula anticoagula nts nts Personal Personal Diagnosis Active Shreya history of history of Ethan transient transient 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 ischemic ischemic attack attack (TIA), and (TIA), and cerebral cerebral infarction infarction without without residual residual deficits deficits 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 al fluid [id number] drainage drainage device device Personal Personal Diagnosis Active Shreya history of history of Ethan nicotine nicotine [id number] dependence dependence Encounter Encounter Diagnosis Active Shreya for fitting for fitting Ethan and and [id number] adjustment adjustment of urinary of urinary device device Personal Personal Diagnosis Active Shreya history of history of Ethan urinary urinary [id number] (tract) (tract) infections infections Other long Other long Diagnosis Active Shreya term term Ethan (current) (current) [id number] drug drug therapy therapy Pain frequent Pain Mgmt Active 2019-0 Kaila pain 07-20 [place] 11:30: [id number] 00 Respiratory dyspnea Respirator Active 2019-0 Kaila present y 07-20 [place] 11:30: [id number] 00 Respiratory oxygen Respirator Active 2019-0 Kaila treatments y 07-20 [place] in home 11:30: [id number] 00 Respiratory smoker Respirator Active 2020-0 Kaila y 07-20 [place] 11:30: [id number] 00 Endo/Ernie diabetic Endo/Ernie Active 2020-0 Kaila foot care 07-20 [place] 11:30: [id number] 00 Endo/Ernie anti-coagul Endo/Ernie Active 2020-0 Kaila ation 07-20 [place] therapy 11:30: [id number] 00 Sensory impaired Sensory Active 2020-0 Kaila hearing 07-20 [place] 11:30: [id number] 00 Nutrition nutritional Nutrition Active 2020-0 Akila restriction 07-20 [place] s 11:30: [id number] 00 Elimination recurring Eliminatio Active 2020-0 Kaila UTI n 07-20 [place] 11:30: [id number] 00 Elimination UTI within Eliminatio Active 2020-0 Kaila past 14 n 07-20 [place] days 11:30: [id number] 00 Elimination catheter Eliminatio Active 2020-0 Kaila present n 07-20 [place] 11:30: [id number] 00 Neuro confusion Neuro/Emot Active 2020-0 Kaila present ion 07-20 [place] 11:30: [id number] 00 Neuro impaired Neuro/Emot Active 2020-0 Kaila decision-ma ion 07-20 [place] juan manuel 11:30: [id number] 00 Neuro memory Neuro/Emot Active 2020-0 Kaila deficit ion 07-20 [place] needing 11:30: [id number] supervision 00 Activity ADL Activity Active 2020-0 Kaila assistance 07-20 [place] required 11:30: [id number] 00 Activity self-care Activity Active 2020-0 Kaila deficit 07-20 [place] 11:30: [id number] 00 Safety structural Safety Active 2020-0 Kaila barriers 07-20 [place] present 11:30: [id number] 00 Safety sanitation Safety Active 2020-0 Kaila hazards 07-20 [place] present 11:30: [id number] 00 Safety cannot be Safety Active 2020-0 Kaila left alone 07-20 [place] 11:30: [id number] 00 Safety fall risk Safety Active 2020-0 Kaila factor 07-20 [place] present 11:30: [id number] 00 Safety risk for Safety Active 2020-0 Kaila hospitaliza 07-20 [place] tion 11:30: [id number] 00 Medication oral med Meds Active 2020-0 Kaila assistance 07-20 [place] required 11:30: [id number] 00 Medication knowledge/s Meds Active 2020-0 Kaila kill 07-20 [place] deficit: pt 11:30: [id number] 00 Medication knowledge/s Meds Active 2020-0 Kaila kill 07-20 [place] deficit: cg 11:30: [id number] 00 Musculoskel transfer Musculoske Active 2020-0 Kaila etal assistance letal 07-20 [place] required 11:30: [id number] 00 Musculoskel requires Musculoske Active 2020-0 Kaila etal human letal 07-20 [place] assist to 11:30: [id number] leave home 00 Cath/Ostomy k/s Cath\Ostom Active 2020-0 Kaila /GI deficit: y\GI Care 07-20 [place] cath/ost/GI 11:30: [id number] care - pt 00 Cath/Ostomy k/s Cath\Ostom Active 2020-0 Kaila /GI deficit: y\GI Care 07-20 [place] cath/ost/GI 11:30: [id number] care - cg 00 Respiratory lung sounds Respirator Active 2019-0 Shreya deficit y 07-22 Ethan 11:30: [id number] 00 Safety can be left Safety Active 2019-0 Shreya alone for 07-22 Ethan only short 11:30: [id number] periods 00 Bed mobility/tr PT/OT: Bed Resolve 2019-07-26 Archie Mobility/Tr tony Mobility/T d 07-25 12:47:00 Chelo jimenez device ransfer 12:47: [id number] present 00 Bed transfer PT/OT: Bed Resolve 2019-07-26 Archie Mobility/Tr deficit: Mobility/T d 07-25 12:47:00 Chelo jimenez shower/tub ransfer 12:47: [id number] 00 Bed transfer PT/OT: Bed Resolve 2019-07-26 Archie Mobility/Tr deficit: Mobility/T d 07-25 12:47:00 Chelo jimenez vehicle ransfer 12:47: [id number] 00 Bed knowledge/s PT/OT: Bed Resolve 2019-07-26 Archie Mobility/Tr kill Mobility/T d 07-25 12:47:00 Kobziewicz ansfer deficit: pt ransfer 12:47: [id number] 00 Balance/End balance/psych coordinator PT/OT: Active Archie urance rdination Balance/En 07-25 Kobziewicz deficit durance 12:47: [id number] 00 Gait/Locomo stair PT/OT: Active Archie tion management Gait/Locom 07-25 Kobziewicz problems req otion 12:47: [id number] 00 Gait/Locomo gait PT/OT: Active Archie tion assistive Gait/Locom 07-25 Kobziewicz problems device otion 12:47: [id number] present 00 Gait/Locomo gait PT/OT: Active Archie tion deficit Gait/Locom 07-25 Kobziewicz problems otion 12:47: [id number] 00 Safety fire risk: Safety Active Shreya smoking/O2 07-27 Ethan in use 11:15: [id number] 00 Safety fire risk Safety Active Shreya present 07-27 Ethan 11:15: [id number] 00 Medication potential Meds Active Shreya clinically 07-27 Ethan significant 11:15: [id number] medication 00 issue Allergies, Adverse Reactions, Alerts [...] Serum or plasma calcium 2019-07-19 10:45:00 Identifier 21412-9 Result Unknown measurement (mass/volume) Time 2019-07-19 10:45:00 Test Item Value Reference Range Comments Serum or plasma calcium measurement (mass/volume) (test 10.0 mg/dL Unknown Unknown F code = 02365-8) Ordering Physician UnknownSerum or plasma magnesium measurement (mass/volume) 2019-07-19 10:45:00Identifier 07799-1 Result Time 2019-07-19 10:45:00Unknown Test Item Value Reference Range Comments Serum or plasma magnesium measurement 1.9 mg/dL Unknown Unknown F (mass/volume) (test code = 47627-0) Ordering Physician UnknownSerum or plasma carbon dioxide, [...] Ordering Physician UnknownSerum or plasma urea nitrogen/creatinine [id number]- 30 10:45:00Identifier 3097-3 Result Time 2019-07-19 10:45:00Unknown Test Item Value Reference Range Comments Serum or plasma urea nitrogen/creatinine 30.7 Unknown Unknown F ratio (test code = 3097-3) Ordering Physician UnknownAutomated blood platelet mean volume csotsjjyqoo4396- 03-30 10:45:00Identifier 14805-6 Result Time 2019-07-19 10:45:00Unknown Test Item Value Reference Range Comments Automated blood platelet mean volume 7.4 fL Unknown Unknown F measurement (test code = 71844-4) Ordering Physician UnknownSerum or plasma anion sis6965-20-06 10:45: 00Identifier 32943-4 Result Time 2019-07-19 10:45:00Unknown Test Item Value Reference Range Comments Serum or plasma anion gap (test code = 10 mmol/L Unknown Unknown F 01863-4) Ordering Physician UnknownAutomated blood leukocytes count corrected for nucleated erythrocytes (number/volume)2019-07-19 10:45:00Identifier 51113-8 Result Time 2019-07-19 10:45:00Unknown Test Item Value Reference Range Comments Automated blood leukocytes count 7.9 10^3/uL Unknown Unknown F corrected for nucleated erythrocytes (number/volume) (test code = 86154-0) Ordering Physician UnknownAutomated blood nucleated erythrocytes vbwldcohe2199- 03-30 10:45:00Identifier 58736-7 Result Time 2019-07-19 10:45:00Unknown Test Item Value Reference Range Comments Automated blood nucleated erythrocytes 0.1 Unknown Unknown F detection (test code = 26043-8) Ordering Physician UnknownAutomated blood hematocrit (percentage)2019-07-19 10: 45:00Identifier 4544-3 Result Time 2019-07-19 10:45:00Unknown Test Item Value Reference Range Comments Automated blood hematocrit (percentage) (test 33 % Unknown Unknown F code = 4544-3) Ordering Physician UnknownEstimated glomerular filtration rate (GFR) non- Mfdndcih5918-13-72 10:45:00Identifier 80010-3 Result Time 2019-07-19 10: 45:00Unknown Test Item Value Reference Range Comments Estimated glomerular filtration rate (GFR) 41.2 Unknown Unknown F non- (test code = 90941-8) Ordering Physician UnknownAutomated blood monocytes/100 [id number] 10: 45:00Identifier 5905-5 Result Time 2019-07-19 10:45:00Unknown [...] = 704-7) Ordering Physician UnknownAutomated blood basophils/100 riiqmqxxmy1908-94-66 10: 45:00Identifier 706-2 Result Time 2019-07-19 10:45:00Unknown [...] = 711-2) Ordering Physician UnknownAutomated blood eosinophils/100 imgqdhylqi4001-07-97 10:45:00Identifier 713-8 Result Time 2019-07-19 10:45:00Unknown Test [...] = 731-0) Ordering Physician UnknownAutomated blood lymphocytes/100 dgsejvsygr0088-65-87 10:45:00Identifier 736-9 Result Time 2019-07-19 10:45:00Unknown Test Item Value Reference Range Comments Automated blood lymphocytes/100 leukocytes 3.0 % Unknown Unknown F (test code = 736-9) Ordering Physician UnknownBlood monocytes automated count (number/volume)2019-06 10:45:00Identifier 742-7 Result Time 2019-07-19 10:45:00Unknown Test Item Value Reference Range Comments Blood monocytes automated count 0.4 10^3/ul Unknown Unknown F (number/volume) (test code = 742-7) Ordering Physician UnknownAutomated blood neutrophils/100 tyaawyxctf3544-38-93 10:45:00Identifier 770-8 Result Time 2019-07-19 10:45:00Unknown Test [...] UnknownAutomated erythrocyte mean corpuscular hemoglobin concentration measurement (mass/yco2011-46-32 10:45:00Identifier 786-4 Result Time 2019-07-19 10:45:00Unknown Test Item Value Reference Range Comments Automated erythrocyte mean corpuscular 33 g/dL Unknown Unknown F hemoglobin concentration measurement (mass/vol (test code = 786-4) Ordering Physician UnknownAutomated erythrocyte mean corpuscular bjwvfh7922-94- 30 10:45:00Identifier 787-2 Result Time 2019-07-19 10:45:00Unknown Test Item Value Reference Range Comments Automated erythrocyte mean corpuscular volume 91 fL Unknown Unknown F (test code = 787-2) Ordering Physician UnknownAutomated erythrocyte distribution width ifxwi7599-14- 30 10:45:00Identifier 788-0 Result Time 2019-07-19 10:45:00Unknown [...] code = 789-8) Ordering Physician UnknownLymphocyte proliferation cohz2681-64-52 10:45: 00Identifier IQE1871 Result Time 2019-07-19 10:45:00Unknown Test Item Value Reference Range Comments Lymphocyte proliferation test (test 7.1 10^3/ul Unknown Unknown F code = JVT4690) Ordering Physician UnknownUrine urobilinogen measurement (units/volume) by test hqfzl3511-76-21 12:30:00Identifier 71937-8 Result Time 2019-07-17 12:30: 00Unknown Test Item Value Reference Range Comments Urine urobilinogen measurement Negative Unknown Unknown F (units/volume) by test strip (test code = 76961-9) Ordering Physician UnknownUrine bacteria detection by automated fymmkn1206-28- 28 12:30:00Identifier 26644-6 Result Time 2019-07-17 12:30:00Unknown Test Item Value Reference Range Comments Urine bacteria detection by automated Absent Unknown Unknown F method (test code = 28245-4) Ordering Physician UnknownUrine total bilirubin detection by automated test txxvp4498-04-34 12:30:00Identifier 36741-7 Result Time 2019-07-17 12:30: 00Unknown Test Item Value Reference Range Comments Urine total bilirubin detection by Negative Unknown Unknown F automated test strip (test code = 56312-1) Ordering Physician UnknownUrine clarity by refractometry dwroggino8942-85-84 12: 30:00Identifier 42813-1 Result Time 2019-07-17 12:30:00Unknown Test Item Value Reference Range Comments Urine clarity by refractometry automated Cloudy Unknown Unknown F (test code = 33044-4) Ordering Physician UnknownColor of Urine by Pspt7739-59-44 12:30:00Identifier 93358-4 Result Time 2019-07-17 12:30:00Unknown Test Item Value Reference Range Comments Color of Urine by Auto (test code = Yellow Unknown Unknown F 35213-5) Ordering Physician UnknownUrine glucose detection by automated test xoiga3833-89 -28 12:30:00Identifier 48591-0 Result Time 2019-07-17 12:30:00Unknown Test Item Value Reference Range Comments Urine glucose detection by automated test Negative Unknown Unknown F strip (test code = 81917-6) Ordering Physician UnknownKetones [Mass/volume] in Urine by Automated test pjgtv5620-65-16 12:30:00Identifier 99659-7 Result Time 2019-07-17 12:30: 00Unknown Test Item Value Reference Range Comments Ketones [Mass/volume] in Urine by Negative Unknown Unknown F Automated test strip (test code = 21998-6) Ordering Physician UnknownUrine nitrite detection by automated test rwgwl0157-76 -28 12:30:00Identifier 90838-2 Result Time 2019-07-17 12:30:00Unknown Test Item Value Reference Range Comments Urine nitrite detection by automated test Positive Unknown Unknown F strip (test code = 09053-4) Ordering Physician UnknownProtein [Mass/volume] in Urine by Automated test sfbbo1798-44-33 12:30:00Identifier 25707-7 Result Time 2019-07-17 12:30: 00Unknown Test Item Value Reference Range Comments Protein [Mass/volume] in Urine by Negative Unknown Unknown F Automated test strip (test code = 04150-4) Ordering Physician UnknownSpecific gravity of Urine by Refractometry qqpvcguon9069-53-34 12:30:00Identifier 43198-8 Result Time 2019-07-17 12:30: 00Unknown Test Item Value Reference Range Comments Specific gravity of Urine by Refractometry 1.009 Unknown Unknown F automated (test code = 64030-0) Ordering Physician UnknownUrine erythrocytes detection by automated laksii263707-16 12:30:00Identifier 04778-3 Result Time 2019-07-17 12:30:00Unknown Test Item Value Reference Range Comments Urine erythrocytes detection by 3+(>10/hpf) Unknown Unknown F automated method (test code = 08681-9) Ordering Physician UnknownUrine leukocytes detection by automated plflug9936-13- 28 12:30:00Identifier 76139-0 Result Time 2019-07-17 12:30:00Unknown Test Item Value Reference Range Comments Urine leukocytes detection by 3+(>20/hpf) Unknown Unknown F automated method (test code = 98859-3) Ordering Physician UnknownUrine hemoglobin detection by test [id number] 12: 30:00Identifier 5794-3 Result Time 2019-07-17 12:30:00Unknown Test Item Value Reference Range Comments Urine hemoglobin detection by test strip (test 3+ Unknown Unknown F code = 5794-3) Ordering Physician UnknownUrine leukocyte esterase detection by automated test lvcor5582-83-64 12:30:00Identifier 77274-8 Result Time 2019-07-17 12:30: 00Unknown Test Item Value Reference Range Comments Urine leukocyte esterase detection by automated 3+ Unknown Unknown F test strip (test code = 04046-0) Ordering Physician UnknownSerum or plasma vitamin B12 [...] plasma troponin i.cardiac measurement (mass/ volume)2019-07-16 21:08:00Identifier 08050-2 Result Time 2019-07-16 21:08: 00Unknown Test Item Value Reference Range Comments Serum or plasma troponin i.cardiac 0.37 ng/mL Unknown Unknown F measurement (mass/volume) (test code = 69394-7) Ordering Physician UnknownSerum or plasma alanine aminotransferase measurement ( enzymatic activity/volume)2019-07-16 14:12:00Identifier 1742-6 Result Time 07-15 14:12:00Unknown Test Item Value Reference Range Comments Serum or plasma alanine aminotransferase 6 U/L Unknown Unknown F measurement (enzymatic activity/volume) (test code = 1742-6) Ordering Physician UnknownSerum or plasma albumin/globulin mass [id number] 14:12:00Identifier 1759-0 Result Time 2019-07-16 14:12:00Unknown Test [...] Ordering Physician UnknownBilirubin.indirect [Mass/volume] in Serum or Sdhrgj5592-17-18 14:12:00Identifier 1970-04 Result Time 2019-07-16 14:12: 00Unknown [...] (test code = 1974-05) Ordering Physician UnknownPCO2 jtcsvg0249-37-65 14:12:00Identifier 2020-07 Result Time 2019-07-16 14:12:00Unknown Test Item Value Reference Range Comments PCO2 venous (test code = 2020-07) 45 mmHg Unknown Unknown F Ordering Physician UnknownSerum or plasma high density lipoprotein (HDL) cholesterol dszducbujjo7219-29-43 14:12:00Identifier 2084-12 Result Time 14:12:00Unknown Test Item [...] (test code = 2571-8) Ordering Physician UnknownPO2 bmxvzw8072-60-75 14:12:00Identifier 2705-2 Result Time 2019-07-16 14:12:00Unknown Test Item Value Reference Range Comments PO2 venous (test code = 2705-2) 39.0 mmHg Unknown Unknown F Ordering Physician UnknownVenous blood pH wmqluctffdh5870-72-33 14:12: 00Identifier 2746-6 Result Time 2019-07-16 14:12:00Unknown [...] natriuretic peptide B measurement ( mass/volume)2019-07-16 14:12:00Identifier 71578-7 Result Time 2019-07-16 14:12: 00Unknown Test Item Value Reference Range Comments Serum or plasma natriuretic peptide B 849 pg/mL Unknown Unknown F measurement (mass/volume) (test code = 85558-5) Ordering Physician UnknownVenous blood oxygen saturation calculated from oxygen partial [id number] 14:12:00Identifier 45355-1 Result Time 2019-07-16 14: 12:00Unknown Test Item Value Reference Range Comments Venous blood oxygen saturation calculated 66.2 % Unknown Unknown F from oxygen partial pressure (test code = 81305-7) Ordering Physician UnknownSerum or plasma albumin measurement by bromocresol green (BCG) dye binding method (ql2492-43-62 14:12:00Identifier 01025-4 Result Time 2019-07-16 14:12:00Unknown Test Item Value Reference Range Comments Serum or plasma albumin measurement by 3.7 g/dL Unknown Unknown F bromocresol green (BCG) dye binding method (ma (test code = 65372-5) Ordering Physician UnknownSerum or plasma alkaline phosphatase measurement ( enzymatic activity/volume)2019-07-16 14:12:00Identifier 6768-6 Result Time 07-15 14:12:00Unknown Test Item Value Reference Range Comments Serum or plasma alkaline phosphatase 69 U/L Unknown Unknown F measurement (enzymatic activity/volume) (test code = 6768-6) Ordering Physician UnknownInfluenza virus A RNA detection by probe and target amplification zuxgas6217-57-89 13:18:00Identifier 77462-3 Result Time 13:18:00Unknown Test Item Value Reference Range Comments Influenza virus A RNA detection by probe Negative Unknown Unknown F and target amplification method (test code = 73479-8) Ordering Physician UnknownInfluenza virus B RNA detection by probe and target amplification [id number] 13:18:00Identifier 58435-0 Result Time 13:18:00Unknown Test Item Value Reference Range Comments Influenza virus B RNA detection by probe Negative Unknown Unknown F and target amplification method (test code = 98147-6) Ordering Physician Unknown
--- OUTSIDE RECORDS SUMMARY | 2019-08-06 13:51 | XMS REPORT | Continuity of Care Document ---
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 12/06/2014 1 Unit Injection Injection WhitneyotulinumSerigo Johnson M.D. 08/23/2014 1 Unit Injection Injection [...] CPT Code Status Date Vaccine Lot # [id number] Given 02/26/2016 Influ Virus Vaccine, Quadrivalent, Split Virus, Im [id number] Fluzone not PF [id number] Given 02/20/2015 Fluvirin [...] Available Procedures Date Code Description Status 03/04/2019 93693 EKG, Interpretation Only Completed 03/04/2019 29275 Thoracentesis W/ Img Guidance Completed 04/09/2001 [id number] Diabetic Retinal Eye Exam Completed Medical Devices Description No Information Available Encounters Type Date Location Provider Dx Diagnosis Office Visit 07/20/2019 [facility] Prabhakar, N39.0 Urinary tract 8:16a [...] agents ruled out Office Visit 07/19/2019 8:16a [facility] J96.21 Acute and chronic Assoc,CHING Bender respiratory Hospitalists failure with hypoxia N39.0 Urinary tract infection, site not specified T83.511A I/I react d/t indwelling urethral catheter, init F32.9 Major depressive disorder, single episode, unspecified Office Visit 07/18/2019 8:15a [facility] J96.21 Acute and chronic Assoc,CHING Bender respiratory Hospitalists failure with hypoxia D64.9 Anemia, unspecified N39.0 Urinary tract infection, site not specified T83.511A I/I react d/t indwelling urethral catheter, init Office Visit 07/17/2019 8:15a [facility] J96.21 Acute and chronic Assoc,CHING Bender respiratory Hospitalists failure with hypoxia I50.9 Heart failure, unspecified I48.91 Unspecified atrial fibrillation D64.9 Anemia, unspecified Office Visit 07/16/2019 [facility] Carolann Olivier, N17.9 Acute kidney 8:14a Assoc,pc [employer] failure, Hospitalists unspecified J44.1 Chronic obstructive pulmonary disease w (acute) exacerbation I50.9 Heart failure, unspecified D64.9 Anemia, unspecified I48.91 Unspecified atrial fibrillation Office Visit 03/12/2019 [facility] Antoinette I11.0 Hypertensive heart 9:24a Assoc,CHING Hernandez-Sharif disease with heart Hospitalists failure R09.02 Hypoxemia I50.9 Heart failure, unspecified R40.0 Somnolence J44.9 Chronic obstructive pulmonary disease, unspecified Office Visit 03/09/2019 9:22a [facility] Odettetony Fischer, R40.0 Somnolence Assoc,nisha FLOWER Hospitalists J96.20 Acute and chr resp failure, unsp w hypoxia or hypercapnia I48.91 Unspecified atrial fibrillation R33.9 Retention of urine, unspecified J44.9 Chronic obstructive pulmonary disease, unspecified Office Visit 03/08/2019 [facility] Cale Parham I11.0 Hypertensive heart 8:53a Assnisha munoz M.D.,FACP disease with heart Hospitalists failure I50.33 Acute on chronic diastolic (congestive) heart failure I48.91 Unspecified atrial fibrillation J90 Pleural effusion, not elsewhere classified R33.9 Retention of urine, unspecified J96.91 Respiratory failure, unspecified with hypoxia Office Visit 03/07/2019 8:53a [facility] Juanis Polanco, J96.21 Acute and chronic nisha Martínez MD respiratory Hospitalists failure with hypoxia I50.9 Heart failure, unspecified R33.9 Retention of urine, unspecified Office Visit 03/06/2019 8:52a [facility] Juanis Polanco, R33.9 Retention of nisha Martínez MD urine, unspecified Hospitalists I11.0 Hypertensive heart disease with heart failure I50.33 Acute on chronic diastolic (congestive) heart failure Office Visit 03/05/2019 3:45p Pulmonology And Kathy J90 Pleural effusion, [facility] MD Norma not elsewhere In[employer] Operator classified J96.91 Respiratory failure, unspecified with hypoxia J44.9 Chronic obstructive pulmonary disease, unspecified Office Visit 03/05/2019 8:52a [facility] Juanis Diledith, R33.9 Retention of nisha Martínez MD urine, unspecified Hospitalists I11.0 Hypertensive heart disease with heart failure I50.33 Acute on chronic diastolic (congestive) heart failure Office Visit 03/04/2019 1:24p Pulmonology And Kathy J90 Pleural effusion, Sleep Services Of MD Norma not elsewhere Ink [employer] Operator classified Office Visit 03/04/2019 8:52a Delphia Elliot Polanco MD R33.9 Retention of Assoc,pc urine, Hospitalists unspecified I11.0 Hypertensive heart disease with heart failure I50.33 Acute on chronic diastolic (congestive) heart failure J90 Pleural effusion, not elsewhere classified Office Visit 03/03/2019 8:51a Delphia Elliot Polanco, R33.9 Retention of Assocnisha MD urine, unspecified Hospitalists I11.0 Hypertensive heart disease with heart failure I50.33 Acute on chronic diastolic (congestive) heart failure J90 Pleural effusion, not elsewhere classified Office Visit 03/03/2019 1:23p Pulmonology And Kathy J90 Pleural effusion, Sleep Services Of MD Norma not elsewhere In[employer] Operator classified Office Visit 03/02/2019 8:51a [place] Elliot Polanco MD J96.91 Respiratory Assoc,pc failure, Hospitalists unspecified with hypoxia I11.0 Hypertensive heart disease with heart failure J90 Pleural effusion, not elsewhere classified Office Visit 03/01/2019 8:51a [place] Elliot Polanco, R33.9 Retention of nisha Martínez MD urine, unspecified Hospitalists J96.91 Respiratory failure, unspecified with hypoxia I11.0 Hypertensive heart disease with heart failure I48.91 Unspecified atrial fibrillation Office Visit 02/28/2019 8:50a [facility] [place] I11.0 Hypertensive heart Assoc,nisha Lynch M.D. disease with heart Hospitalists failure I50.33 Acute on chronic diastolic (congestive) heart failure J90 Pleural effusion, not elsewhere classified M25.569 Pain in unspecified knee Office Visit 02/27/2019 8:50a [facility] [place] I11.0 Hypertensive heart Assoc,nisha Lynch M.D. disease with heart Hospitalists failure I50.33 Acute on chronic diastolic (congestive) heart failure J90 Pleural effusion, not elsewhere classified E11.9 Type 2 diabetes mellitus without complications M25.569 Pain in unspecified knee Office Visit 02/26/2019 8:49a [facility] [place] I11.0 Hypertensive heart Assoc,nisha Avendano MD disease with heart Hospitalists failure I50.33 Acute on chronic diastolic (congestive) heart failure R09.02 Hypoxemia Office Visit 02/25/2019 8:49a [facility] [place] J96.91 Respiratory Assocnisha M.D. failure, Hospitalists unspecified with hypoxia I95.89 Other hypotension I11.0 Hypertensive heart disease with heart failure I50.33 Acute on chronic diastolic (congestive) heart failure J90 Pleural effusion, not elsewhere classified Office Visit 02/24/2019 8:49a [facility] [place] J96.91 Respiratory Assocnisha M.D. failure, Hospitalists unspecified with hypoxia I11.0 Hypertensive heart disease with heart failure I50.33 Acute on chronic diastolic (congestive) heart failure I95.9 Hypotension, unspecified I48.91 Unspecified atrial fibrillation J90 Pleural effusion, not elsewhere classified N39.0 Urinary tract infection, site not specified M25.569 Pain in unspecified knee Office Visit 02/23/2019 [facility] Antoinette I48.91 Unspecified atrial 8:48a Assoc,nisha [...] N17.9 Acute kidney failure, unspecified Carolann Olivier, [employer] 07/16/2019 J44.1 Chronic obstructive pulmonary disease Carolann Olivier, BREA with (acute) exacerbation 07/16/2019 I50.9 Heart failure, unspecified Carolann Olivier, [employer] 07/16/2019 D64.9 Anemia, unspecified Carolann Olivier, [employer] 07/16/2019 I48.91 Unspecified atrial fibrillation Carolann Olivier, [employer] 03/12/2019 I11.0 Hypertensive heart disease with heart [...]
--- OUTSIDE RECORDS SUMMARY | 2019-08-06 13:51 | XMS REPORT ---
:1945 Author Organization [facility] Care Team Providers Name Role Phone Unavailable Unavailable Unavailable Problems Condition Condition Condition Status Onset Resolution Last Treating Comments Name Details Category Date Date Treatment Clinician Date Hypertensiv Hypertensiv Diagnosis Active 2018-04 Shreya e heart and e heart and 05-12 Ethan chronic chronic [id number] kidney kidney disease disease with heart with heart failure and failure and stage 1 stage 1 through through stage 4 stage 4 chronic chronic kidney kidney disease, or disease, or unspecified unspecified chronic chronic kidney kidney disease disease Heart Heart Diagnosis Active 2018-04 Shreya failure, failure, 05-12 Ethan unspecified unspecified [id number] Type 2 Type 2 Diagnosis Active 2018-04 Shreya diabetes diabetes 05-12 Ethan mellitus mellitus [id number] with with diabetic diabetic chronic chronic kidney kidney disease disease Chronic Chronic Diagnosis Active 2018-04 Shreya kidney kidney 05-12 Ethan disease, disease, [id number] unspecified unspecified Unspecified Unspecified Diagnosis Active 2018-04 Shreya atrial atrial 05-12 Ethan fibrillatio fibrillatio [id number] n n Chronic Chronic Diagnosis Active 2018-04 Shreya obstructive obstructive 05-12 Ethan pulmonary pulmonary [id number] disease, disease, unspecified unspecified 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 Active Shreya chronic chronic Ethan kidney kidney [id number] disease disease Obstructive Obstructive Diagnosis Active Shreya sleep apnea sleep apnea Ethan (adult) (adult) [id number] (pediatric) (pediatric) Acute and Acute and Diagnosis Active Shreya chronic chronic Ethan respiratory respiratory [id number] failure failure with with hypoxia hypoxia Lymphedema, Lymphedema, Diagnosis Active Shreya not not Ethan elsewhere elsewhere [id number] classified classified Retention Retention Diagnosis Active Shreya of urine, of urine, Ethan unspecified unspecified 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 without without [id number] dysplasia dysplasia Gastro-esop Gastro-esop Diagnosis Active Shreya hageal hageal Ethan reflux reflux [id number] disease disease without without esophagitis esophagitis Unspecified Unspecified Diagnosis Active Shreya osteoarthri osteoarthri Ethan tis, tis, [id number] unspecified unspecified site site Unspecified Unspecified Diagnosis Active Shreya cataract cataract Ethan [id number] Major Major Diagnosis Active Shreya depressive depressive Ethan disorder, disorder, [id number] single single episode, episode, unspecified unspecified Age-related Age-related Diagnosis Active Shreya osteoporosi osteoporosi Ethan s without s without [id number] current current pathologica pathologica l fracture l fracture Dependence Dependence Diagnosis Active Shreya on on Ethan supplementa supplementa [id number] l oxygen l oxygen 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 Shreya (current) (current) Ethan use of use of [id number] anticoagula anticoagula nts nts Personal Personal Diagnosis Active Shreya history of history of Ethan transient transient 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 ischemic ischemic attack attack (TIA), and (TIA), and cerebral cerebral infarction infarction without without residual residual deficits deficits 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 al fluid [id number] drainage drainage device device Personal Personal Diagnosis Active Shreya history of history of Ethan nicotine nicotine [id number] dependence dependence Encounter Encounter Diagnosis Active Shreya for fitting for fitting Ethan and and [id number] adjustment adjustment of urinary of urinary device device Personal Personal Diagnosis Active Shreya history of history of Ethan urinary urinary [id number] (tract) (tract) infections infections Other long Other long Diagnosis Active Shreya term term Ethan (current) (current) [id number] drug drug therapy therapy Pain frequent Pain Mgmt Active 2019-0 Kaila pain 07-20 Danese 11:30: [id number] 00 Respiratory dyspnea Respirator Active 2019-0 Kaila present y 07-20 Danese 11:30: [id number] 00 Respiratory oxygen Respirator Active 2019-0 Kaila treatments y 07-20 Danese in home 11:30: [id number] 00 Respiratory smoker Respirator Active 2020-0 Kaila y 07-20 Danese 11:30: [id number] 00 Endo/Ernie diabetic Endo/Ernie Active 2020-0 Kaila foot care 07-20 Danese 11:30: [id number] 00 Endo/Ernie anti-coagul Endo/Ernie Active 2020-0 Kaila ation 07-20 Danese therapy 11:30: [id number] 00 Sensory impaired Sensory Active 2020-0 Kaila hearing 07-20 Danese 11:30: [id number] 00 Nutrition nutritional Nutrition Active 2020-0 Kaila restriction 07-20 Danese s 11:30: [id number] 00 Elimination recurring Eliminatio Active 2020-0 Kaila UTI n 07-20 Danese 11:30: [id number] 00 Elimination UTI within Eliminatio Active 2020-0 Kaila past 14 n 07-20 Danese days 11:30: [id number] 00 Elimination catheter Eliminatio Active 2020-0 Kaila present n 07-20 Danese 11:30: [id number] 00 Neuro confusion Neuro/Emot Active 2020-0 Kaila present ion 07-20 Danese 11:30: [id number] 00 Neuro impaired Neuro/Emot Active 2020-0 Kaila decision-ma ion 07-20 Danese juan manuel 11:30: [id number] 00 Neuro memory Neuro/Emot Active 2020-0 Kaila deficit ion 07-20 Danese needing 11:30: [id number] supervision 00 Activity ADL Activity Active 2020-0 Kaila assistance 07-20 Danese required 11:30: [id number] 00 Activity self-care Activity Active 2020-0 Kaila deficit 07-20 Danese 11:30: [id number] 00 Safety structural Safety Active 2020-0 Kaila barriers 07-20 Danese present 11:30: [id number] 00 Safety sanitation Safety Active 2020-0 Kaila hazards 07-20 Danese present 11:30: [id number] 00 Safety cannot be Safety Active 2020-0 Kaila left alone 07-20 Danese 11:30: [id number] 00 Safety fall risk Safety Active 2020-0 Kaila factor 07-20 Danese present 11:30: [id number] 00 Safety risk for Safety Active 2020-0 Kaila hospitaliza 07-20 Danese tion 11:30: [id number] 00 Medication oral med Meds Active 2020-0 Kaila assistance 07-20 Danese required 11:30: [id number] 00 Medication knowledge/s Meds Active 2020-0 Kaila kill 07-20 Danese deficit: pt 11:30: [id number] 00 Medication knowledge/s Meds Active 2020-0 Kaila kill 07-20 Danese deficit: cg 11:30: [id number] 00 Musculoskel transfer Musculoske Active 2020-0 Kaila etal assistance letal 07-20 Danese required 11:30: [id number] 00 Musculoskel requires Musculoske Active 2020-0 Kaila etal human letal 07-20 Danese assist to 11:30: [id number] leave home 00 Cath/Ostomy k/s Cath\Ostom Active 2020-0 Kaila /GI deficit: y\GI Care 07-20 Danese cath/ost/GI 11:30: [id number] care - pt 00 Cath/Ostomy k/s Cath\Ostom Active 2020-0 Kaila /GI deficit: y\GI Care 07-20 Danese cath/ost/GI 11:30: [id number] care - cg 00 Respiratory lung sounds Respirator Active 2019-0 Shreya deficit y 07-22 Ethan 11:30: [id number] 00 Safety can be left Safety Active 2019-0 Shreya alone for 07-22 Ethan only short 11:30: [id number] periods 00 Bed mobility/tr PT/OT: Bed Resolve 2019-07-26 Archie Mobility/Tr tony Mobility/T d 07-25 12:47:00 Chelo jimenez device ransfer 12:47: [id number] present 00 Bed transfer PT/OT: Bed Resolve 2019-07-26 Archie Mobility/Tr deficit: Mobility/T d 07-25 12:47:00 Chelo jimenez shower/tub ransfer 12:47: [id number] 00 Bed transfer PT/OT: Bed Resolve 2019-07-26 Archie Mobility/Tr deficit: Mobility/T d 07-25 12:47:00 Chelo jimenez vehicle ransfer 12:47: [id number] 00 Bed knowledge/s PT/OT: Bed Resolve 2019-07-26 Archie Mobility/Tr kill Mobility/T d 07-25 12:47:00 Kobziewicz ansfer deficit: pt ransfer 12:47: [id number] 00 Balance/End balance/induction coordination power engineer PT/OT: Active Archie urance rdination Balance/En 07-25 Kobziewicz deficit durance 12:47: [id number] 00 Gait/Locomo stair PT/OT: Active Archie tion management Gait/Locom 07-25 Kobziewicz problems req otion 12:47: [id number] 00 Gait/Locomo gait PT/OT: Active Archie tion assistive Gait/Locom 07-25 Kobziewicz problems device otion 12:47: [id number] present 00 Gait/Locomo gait PT/OT: Active Archie tion deficit Gait/Locom 07-25 Kobziewicz problems otion 12:47: [id number] 00 Safety fire risk: Safety Active Shreya smoking/O2 07-27 Ethan in use 11:15: [id number] 00 Safety fire risk Safety Active Shreya present 07-27 Ethan 11:15: [id number] 00 Medication potential Meds Active Shreya clinically 07-27 Ethan significant 11:15: [id number] medication 00 issue Musculoskel requires Musculoske Active Shreya etal special letal 08-03 Ethan transportat 13:00: [id number] ion 00 Allergies, Adverse Reactions, Alerts Allergy Allergy [...] capsule,ext ended ended release release alendronate alendronate 2020- Yes Breiman Unknown Unknown 70 mg 70 mg 07-20 Morgan CHAIDEZ tablet tablet montelukast montelukast Yes Breiman Unknown Unknown 10 mg 10 mg 07-20 Morgan CHAIDEZ tablet tablet citalopram citalopram 2020-0 Yes Breiman Unknown Unknown 20 mg 20 mg 07-20 Morgan CHAIDEZ tablet tablet ferrous ferrous 2019-0 Yes Breiman Unknown Unknown sulfate 325 sulfate 325 07-20 Morgan CHAIDEZ mg (65 mg mg (65 mg iron) iron) tablet tablet cyanocobala cyanocobala 2019-0 Yes Breiman Unknown Unknown min (vit min (vit 07-20 ,Morgan B-12) 500 B-12) 500 mcg tablet mcg tablet cholestyram cholestyram 0 Yes Breiman Unknown Unknown ine (with ine [...] Breiman Unknown Unknown axetiL 250 axetiL 250 07-20 Morgan CHAIDEZ mg tablet mg tablet torsemide torsemide 2019-0 Yes Breiman Unknown Unknown 20 mg 20 mg 07-20 Morgan CHAIDEZ tablet tablet Eliquis 5 Eliquis 5 2019-0 Yes Breiman Unknown Unknown mg tablet mg tablet 07-20 Morgan CHAIDEZ Anoro Anoro 2019-0 Yes Breiman Unknown Unknown Ellipta Ellipta 07-20 [...] Breiman Unknown Unknown 70 mg 70 mg 4-08 ,Morgan tablet tablet Cartia XT Cartia XT Yes Maghaydah Unknown Unknown 120 mg 120 mg 4-08 ,Qutaybkendra capsule,ext capsule,ext h ended ended release release Vital Signs Vital Name Observation Time Observation Value Comments SYSTOLIC mm[Hg] 2019-08-04 18:11:24 138 mm[Hg] mm[Hg] Method: Sit SYSTOLIC mm[Hg] 2019-07-21 18:11:10 120 mm[Hg] mm[Hg] Method: Stand DIASTOLIC mm[Hg] 2019-08-04 18:11:24 78 mm[Hg] mm[Hg] Method: Sit DIASTOLIC mm[Hg] 2019-07-21 18:11:10 80 mm[Hg] mm[Hg] Method: Stand PULSE 2019-08-04 18:11:24 80 /min /min RESP RATE 2019-08-05 18:11:25 20 /min /min TEMP 2019-08-04 18:11:24 97.9 [degF] Procedures This patient has no known procedures. Results Test Description Test Time Test Comments Text Results Atomic Results Result Comments Serum or plasma calcium 2019-07-19 10:45:00 Identifier 90139-2 Result Unknown measurement (mass/volume) Time 2019-07-19 10:45:00 Test Item Value Reference Range Comments Serum or plasma calcium measurement (mass/volume) (test 10.0 mg/dL Unknown Unknown F code = 72586-5) Ordering Physician UnknownSerum or plasma magnesium measurement (mass/volume) 2019-07-19 10:45:00Identifier 37653-6 Result Time 2019-07-19 10:45:00Unknown Test Item Value Reference Range Comments Serum or plasma magnesium measurement 1.9 mg/dL Unknown Unknown F (mass/volume) (test code = 31494-7) Ordering Physician UnknownSerum or plasma carbon dioxide, total measurement ( moles/volume)2019-07-19 10:45:00Identifier 2027-12 Result Time 2019-07-19 10:45: 00Unknown Test Item Value Reference Range Comments Serum or plasma carbon dioxide, total 35 mmol/L Unknown Unknown F measurement (moles/volume) (test code = 2028-9) Ordering Physician UnknownSerum or plasma chloride measurement (moles/volume) 2019-07-19 10:45:00Identifier 2075-0 Result Time 2019-07-19 10:45:00Unknown Test Item Value [...] Ordering Physician UnknownSerum or plasma urea nitrogen/creatinine uuhwj1965-68- 30 10:45:00Identifier 3097-3 Result Time 2019-07-19 10:45:00Unknown Test Item Value Reference Range Comments Serum or plasma urea nitrogen/creatinine 30.7 Unknown Unknown F ratio (test code = 3097-3) Ordering Physician UnknownAutomated blood platelet mean volume tnuyrtojtdq1961- 03-30 10:45:00Identifier 89057-7 Result Time 2019-07-19 10:45:00Unknown Test Item Value Reference Range Comments Automated blood platelet mean volume 7.4 fL Unknown Unknown F measurement (test code = 31367-9) Ordering Physician UnknownSerum or plasma anion [id number] 10:45: 00Identifier 57486-3 Result Time 2019-07-19 10:45:00Unknown Test Item Value Reference Range Comments Serum or plasma anion gap (test code = 10 mmol/L Unknown Unknown F 79442-8) Ordering Physician UnknownAutomated blood leukocytes count corrected for nucleated erythrocytes (number/volume)2019-07-19 10:45:00Identifier 57177-2 Result Time 2019-07-19 10:45:00Unknown Test Item Value Reference Range Comments Automated blood leukocytes count 7.9 10^3/uL Unknown Unknown F corrected for nucleated erythrocytes (number/volume) (test code = 40062-9) Ordering Physician UnknownAutomated blood nucleated erythrocytes jsmdygcfv6625- 03-30 10:45:00Identifier 60225-0 Result Time 2019-07-19 10:45:00Unknown Test Item Value Reference Range Comments Automated blood nucleated erythrocytes 0.1 Unknown Unknown F detection (test code = 46156-5) Ordering Physician UnknownAutomated blood hematocrit (percentage)2019-07-19 10: 45:00Identifier 4544-3 Result Time 2019-07-19 10:45:00Unknown Test Item Value Reference Range Comments Automated blood hematocrit (percentage) (test 33 % Unknown Unknown F code = 4544-3) Ordering Physician UnknownEstimated glomerular filtration rate (GFR) non- Egcdojjh4311-95-86 10:45:00Identifier 96758-4 Result Time 2019-07-19 10: 45:00Unknown Test Item Value Reference Range Comments Estimated glomerular filtration rate (GFR) 41.2 Unknown Unknown F non- (test code = 56538-7) Ordering Physician UnknownAutomated blood monocytes/100 [id number] 10: 45:00Identifier 5905-5 Result Time 2019-07-19 10:45:00Unknown [...] = 704-7) Ordering Physician UnknownAutomated blood basophils/100 lbabekbybm5379-24-31 10: 45:00Identifier 706-2 Result Time 2019-07-19 10:45:00Unknown [...] = 711-2) Ordering Physician UnknownAutomated blood eosinophils/100 nsvzslnumu3134-56-41 10:45:00Identifier 713-8 Result Time 2019-07-19 10:45:00Unknown Test [...] = 731-0) Ordering Physician UnknownAutomated blood lymphocytes/100 cuagbynhkh8769-46-37 10:45:00Identifier 736-9 Result Time 2019-07-19 10:45:00Unknown Test Item Value Reference Range Comments Automated blood lymphocytes/100 leukocytes 3.0 % Unknown Unknown F (test code = 736-9) Ordering Physician UnknownBlood monocytes automated count (number/volume)2019-06 10:45:00Identifier 742-7 Result Time 2019-07-19 10:45:00Unknown Test Item Value Reference Range Comments Blood monocytes automated count 0.4 10^3/ul Unknown Unknown F (number/volume) (test code = 742-7) Ordering Physician UnknownAutomated blood neutrophils/100 miajummmbq5487-14-52 10:45:00Identifier 770-8 Result Time 2019-07-19 10:45:00Unknown Test [...] UnknownAutomated erythrocyte mean corpuscular hemoglobin concentration measurement (mass/kwb7726-58-48 10:45:00Identifier 786-4 Result Time 2019-07-19 10:45:00Unknown Test Item Value Reference Range Comments Automated erythrocyte mean corpuscular 33 g/dL Unknown Unknown F hemoglobin concentration measurement (mass/vol (test code = 786-4) Ordering Physician UnknownAutomated erythrocyte mean corpuscular sestfk9131-91- 30 10:45:00Identifier 787-2 Result Time 2019-07-19 10:45:00Unknown Test Item Value Reference Range Comments Automated erythrocyte mean corpuscular volume 91 fL Unknown Unknown F (test code = 787-2) Ordering Physician UnknownAutomated erythrocyte distribution width ssyme0204-13- 30 10:45:00Identifier 788-0 Result Time 2019-07-19 10:45:00Unknown [...] code = 789-8) Ordering Physician UnknownLymphocyte proliferation [id number] 10:45: 00Identifier ELT0815 Result Time 2019-07-19 10:45:00Unknown Test Item Value Reference Range Comments Lymphocyte proliferation test (test 7.1 10^3/ul Unknown Unknown F code = NCU4946) Ordering Physician UnknownUrine urobilinogen measurement (units/volume) by test gkrua9970-30-57 12:30:00Identifier 44587-2 Result Time 2019-07-17 12:30: 00Unknown Test Item Value Reference Range Comments Urine urobilinogen measurement Negative Unknown Unknown F (units/volume) by test strip (test code = 45238-2) Ordering Physician UnknownUrine bacteria detection by automated kexwyc5079-54- 28 12:30:00Identifier 85162-5 Result Time 2019-07-17 12:30:00Unknown Test Item Value Reference Range Comments Urine bacteria detection by automated Absent Unknown Unknown F method (test code = 58306-3) Ordering Physician UnknownUrine total bilirubin detection by automated test japki4898-36-74 12:30:00Identifier 87015-9 Result Time 2019-07-17 12:30: 00Unknown Test Item Value Reference Range Comments Urine total bilirubin detection by Negative Unknown Unknown F automated test strip (test code = 00493-0) Ordering Physician UnknownUrine clarity by refractometry kfmnnqqqo1558-93-60 12: 30:00Identifier 05807-5 Result Time 2019-07-17 12:30:00Unknown Test Item Value Reference Range Comments Urine clarity by refractometry automated Cloudy Unknown Unknown F (test code = 28419-0) Ordering Physician UnknownColor of Urine by Pekq1072-18-23 12:30:00Identifier 76875-1 Result Time 2019-07-17 12:30:00Unknown Test Item Value Reference Range Comments Color of Urine by Auto (test code = Yellow Unknown Unknown F 40451-8) Ordering Physician UnknownUrine glucose detection by automated test jxgmd5928-04 -28 12:30:00Identifier 99149-3 Result Time 2019-07-17 12:30:00Unknown Test Item Value Reference Range Comments Urine glucose detection by automated test Negative Unknown Unknown F strip (test code = 26364-5) Ordering Physician UnknownKetones [Mass/volume] in Urine by Automated test peuxx6288-82-34 12:30:00Identifier 23665-6 Result Time 2019-07-17 12:30: 00Unknown Test Item Value Reference Range Comments Ketones [Mass/volume] in Urine by Negative Unknown Unknown F Automated test strip (test code = 24247-4) Ordering Physician UnknownUrine nitrite detection by automated test valec9644-63 -28 12:30:00Identifier 30907-6 Result Time 2019-07-17 12:30:00Unknown Test Item Value Reference Range Comments Urine nitrite detection by automated test Positive Unknown Unknown F strip (test code = 90026-0) Ordering Physician UnknownProtein [Mass/volume] in Urine by Automated test jjbsj6105-14-79 12:30:00Identifier 75441-6 Result Time 2019-07-17 12:30: 00Unknown Test Item Value Reference Range Comments Protein [Mass/volume] in Urine by Negative Unknown Unknown F Automated test strip (test code = 44511-8) Ordering Physician UnknownSpecific gravity of Urine by Refractometry qsvhbfipw5807-64-46 12:30:00Identifier 99241-8 Result Time 2019-07-17 12:30: 00Unknown Test Item Value Reference Range Comments Specific gravity of Urine by Refractometry 1.009 Unknown Unknown F automated (test code = 18838-5) Ordering Physician UnknownUrine erythrocytes detection by automated njjscg962807-16 12:30:00Identifier 09634-7 Result Time 2019-07-17 12:30:00Unknown Test Item Value Reference Range Comments Urine erythrocytes detection by 3+(>10/hpf) Unknown Unknown F automated method (test code = 29959-3) Ordering Physician UnknownUrine leukocytes detection by automated cqouoe3640-20- 28 12:30:00Identifier 07643-0 Result Time 2019-07-17 12:30:00Unknown Test Item Value Reference Range Comments Urine leukocytes detection by 3+(>20/hpf) Unknown Unknown F automated method (test code = 24056-9) Ordering Physician UnknownUrine hemoglobin detection by test ojdft5936-35-84 12: 30:00Identifier 5794-3 Result Time 2019-07-17 12:30:00Unknown Test Item Value Reference Range Comments Urine hemoglobin detection by test strip (test 3+ Unknown Unknown F code = 5794-3) Ordering Physician UnknownUrine leukocyte esterase detection by automated test iofbe6982-86-69 12:30:00Identifier 53631-6 Result Time 2019-07-17 12:30: 00Unknown Test Item Value Reference Range Comments Urine leukocyte esterase detection by automated 3+ Unknown Unknown F test strip (test code = 87873-5) Ordering Physician UnknownSerum or plasma vitamin B12 [...] plasma troponin i.cardiac measurement (mass/ volume)2019-07-16 21:08:00Identifier 27701-6 Result Time 2019-07-16 21:08: 00Unknown Test Item Value Reference Range Comments Serum or plasma troponin i.cardiac 0.37 ng/mL Unknown Unknown F measurement (mass/volume) (test code = 16513-4) Ordering Physician UnknownSerum or plasma alanine aminotransferase measurement ( enzymatic activity/volume)2019-07-16 14:12:00Identifier 1742-6 Result Time 07-15 14:12:00Unknown Test Item Value Reference Range Comments Serum or plasma alanine aminotransferase 6 U/L Unknown Unknown F measurement (enzymatic activity/volume) (test code = 1742-6) Ordering Physician UnknownSerum or plasma albumin/globulin mass [id number] 14:12:00Identifier 1759-0 Result Time 2019-07-16 14:12:00Unknown Test Item Value Reference Range Comments Serum or plasma albumin/globulin mass ratio 1.0 Unknown Unknown F (test code = 1759-0) Ordering Physician UnknownSerum or plasma aspartate aminotransferase measurement (enzymatic activity/volume)2019-07-16 14:12:00Identifier 0-8 Result Time 2019-07-16 14:12:00Unknown Test Item Value Reference Range Comments Serum or plasma aspartate aminotransferase 9 U/L Unknown Unknown F measurement (enzymatic activity/volume) (test code = 8) Ordering Physician UnknownSerum or plasma direct bilirubin measurement (mass/ volume)2019-07-16 14:12:00Identifier 1967-10 Result Time 2019-07-16 14:12: 00Unknown Test Item Value Reference Range Comments Serum or plasma direct bilirubin 0.70 mg/dL Unknown Unknown F measurement (mass/volume) (test code = 1967-10) Ordering Physician UnknownBilirubin.indirect [Mass/volume] in Serum or [id number] 14:12:00Identifier 1970-04 Result Time 2019-07-16 14:12: 00Unknown [...] (test code = 1974-05) Ordering Physician UnknownPCO2 [id number] 14:12:00Identifier 2020-07 Result Time 2019-07-16 14:12:00Unknown Test Item Value Reference Range Comments PCO2 venous (test code = 2020-07) 45 mmHg Unknown Unknown F Ordering Physician UnknownSerum or plasma high density lipoprotein (HDL) cholesterol wushlxwhkrf0262-20-33 14:12:00Identifier 2084- Result Time 14:12:00Unknown Test Item Value Reference Range Comments Serum or plasma high density lipoprotein 26.2 mg/dL Unknown Unknown F (HDL) cholesterol measurement (test code = 5-9) Ordering Physician UnknownSerum or plasma low density lipoprotein (LDL) cholesterol measurement (mass/volume)2019-07-16 14:12:00Identifier 2088- Result Time 2019-07-16 14:12:00Unknown Test Item Value Reference Range Comments Serum or plasma low density lipoprotein 54 mg/dL Unknown Unknown F (LDL) cholesterol measurement (mass/volume) (test code = 2088-) Ordering Physician UnknownSerum or plasma cholesterol measurement (mass/volume) 2019-07-16 14:12:00Identifier 2092-3 Result Time 2019-07-16 14:12:00Unknown Test Item Value [...] (test code = 2571-8) Ordering Physician UnknownPO2 [id number] 14:12:00Identifier 2705-2 Result Time 2019-07-16 14:12:00Unknown Test Item Value Reference Range Comments PO2 venous (test code = 2705-2) 39.0 mmHg Unknown Unknown F Ordering Physician UnknownVenous blood pH sohtwsueskr7280-76-77 14:12: 00Identifier 2746-6 Result Time 2019-07-16 14:12:00Unknown [...] natriuretic peptide B measurement ( mass/volume)2019-07-16 14:12:00Identifier 21702-6 Result Time 2019-07-16 14:12: 00Unknown Test Item Value Reference Range Comments Serum or plasma natriuretic peptide B 849 pg/mL Unknown Unknown F measurement (mass/volume) (test code = 43803-8) Ordering Physician UnknownVenous blood oxygen saturation calculated from oxygen partial [id number] 14:12:00Identifier 47918-4 Result Time 2019-07-16 14: 12:00Unknown Test Item Value Reference Range Comments Venous blood oxygen saturation calculated 66.2 % Unknown Unknown F from oxygen partial pressure (test code = 96209-6) Ordering Physician UnknownSerum or plasma albumin measurement by bromocresol green (BCG) dye binding method ([id number] 14:12:00Identifier 54314-4 Result Time 2019-07-16 14:12:00Unknown Test Item Value Reference Range Comments Serum or plasma albumin measurement by 3.7 g/dL Unknown Unknown F bromocresol green (BCG) dye binding method (ma (test code = 12079-3) Ordering Physician UnknownSerum or plasma alkaline phosphatase measurement ( enzymatic activity/volume)2019-07-16 14:12:00Identifier 6768-6 Result Time 07-15 14:12:00Unknown Test Item Value Reference Range Comments Serum or plasma alkaline phosphatase 69 U/L Unknown Unknown F measurement (enzymatic activity/volume) (test code = 6768-6) Ordering Physician UnknownInfluenza virus A RNA detection by probe and target amplification [id number] 13:18:00Identifier 52672-9 Result Time 13:18:00Unknown Test Item Value Reference Range Comments Influenza virus A RNA detection by probe Negative Unknown Unknown F and target amplification method (test code = 95349-9) Ordering Physician UnknownInfluenza virus B RNA detection by probe and target amplification [id number] 13:18:00Identifier [id number] Result Time 13:18:00Unknown Test Item Value Reference Range Comments Influenza virus B RNA detection by probe Negative Unknown Unknown F and target amplification method (test code = 78289-4) Ordering Physician Unknown
--- OUTSIDE RECORDS SUMMARY | 2019-08-06 13:51 | XMS REPORT | Continuity of Care Document ---
:1945 External Reference #:[id number] Author Name Morgan Mccarthy M.D. (transmitted by agent of provider Mavis Guaman) Address [address] [place] [address] Care Team Providers Name Role Phone Kane Thorpe MD - Neurological Care Team Information [facility] Custodial Associate [facility] [place] [facility] - Cardiovascular Care Team Information Retail Custodial Associate [phone] Disease Coretta Gruber MD - Care Team Information Retail Custodial Associate [phone] Cardiovascular Disease Morgan Mccarthy MD - Family Care Team Information Retail Custodial Associate [phone] Medicine [facility] Hospitalists - Hospitalist Care Team Information Retail Custodial Associate [phone] Problems Active Problems Provider Date Type 2 diabetes mellitus Morgan Mccarthy M.D. Onset: 04/01/2011 Spasmodic torticollis Morgan Mccarthy M.D. Onset: 04/17/2011 Orofacial dyskinesia Morgan Mccarthy M.D. Onset: 10/02/2011 Backache Morgan Mccarthy M.D. Onset: 10/02/2011 Cellulitis Morgan Mccarthy M.D. Onset: 11/11/2012 Dyspnea Morgan Mccarthy M.D. Onset: 12/18/2012 Atrial fibrillation Morgan Mccarthy M.D. Onset: 05/10/2013 Anticoagulant agent Morgan Mccarthy M.D. Onset: 06/07/2013 Mitral valve disorder Morgan Mccarthy M.D. Onset: 06/07/2013 Complex partial epileptic seizure Morgan Mccarthy M.D. Onset: 06/28/2013 Urinary tract infectious disease Morgan Mccarthy M.D. Onset: 07/26/2013 Malaise and fatigue Morgan Mccarthy M.D. Onset: 10/15/2013 Cataract Morgan Mccarthy M.D. Onset: 10/27/2013 Diarrhea Morgan Mccarthy M.D. Onset: 03/25/2014 Mitral leaflet abnormality Morgan Mccarthy M.D. Onset: 03/10/2015 Chronic obstructive lung disease Morgan Mccarthy M.D. Onset: 12/13/2015 Weight decreased Morgan Mccarthy M.D. Onset: 06/26/2016 Cellulitis of right lower limb Morgan Mccarthy M.D. Onset: 06/26/2016 Pneumonia Morgan Mccarthy M.D. Onset: 03/17/2017 Edema Morgan Mccarthy M.D. Onset: 10/06/2017 Generalized abdominal pain Morgan Mccarthy M.D. Onset: 02/24/2018 Ulcer of lower extremity Morgan Mccarthy M.D. Onset: 09/16/2018 Pleural effusion, not elsewhere classified Morgan Mccarthy M.D. Onset: Paroxysmal atrial fibrillation Morgan Mccarthy M.D. Onset: 07/27/2019 Social History Type Date Description Comments Sex Unknown Tobacco Use Start: Unknown Patient is a current smoker, smokes every day Allergies, Adverse Reactions, Alerts Active Allergies Reaction Severity Comments Date NKDA 12/12/2010 Tomatoes 02/02/2015 Medications Active Medications SIG Qnty Indications Ordering Date Provider Atenolol 1 by mouth twice a 60tabs Morgan Alfaro 02/16/2019 25mg day Virgilio Mccarthy Tablets Metolazone 1 by mouth a day 30tabs Morgan Alfaro 09/16/2018 5mg With Lasix Virgilio Mccarthy Tablets Tramadol HCL 1 by mouth every 6 30tabs Morgan Alfaro 02/24/2018 50mg hours as needed Virgilio Mccarthy Tablets for pain Singulair 1 by mouth every 90tabs Morgan Alfaro 02/24/2018 10mg day Virgilio Mccarthy Tablets Onetouch Ultra use three times a 100units Jasper 08/03/2015 Smart Test Strips day Dx: e11.9 - pt Steve, REIKI PRACTITIONER last seen 06/12/15 Strips Onetouch Ultra 2 use three times a 1units Morgan Alfaro 07/25/2015 day Dx: e11.9 - pt Virgilio Mccarthy W/Device Kit last seen 06/12/15 Onetouch Ultrasoft use three times a 100units Morgan Alfaro 07/25/2015 Lancets day Dx: e11.9 - pt Virgilio Mccarthy Misc last seen 06/12/15 Proair HFA 2 puffs every 4 1units J20.9 Ada Perez NP 02/02/2015 hours as needed 108(90Base) mcg/Act Aerosol Citalopram 1 by mouth every 180tabs Regina 11/27/2008 Hydrobromide day Daniel Mccain 20mg Tablets Omeprazole take 1 by mouth 180caps Morgan Alfaro 04/06/2007 20mg twice a day Virgilio Mccarthy Capsules DR Oxygen Therapy 2 liters QHS and Unknown when walking Cartia XT 1 by mouth every Unknown 120mg day Caps ER 24HR Eliquis take one tablet by Unknown 5mg Tablets mouth twice a day Citalopram 1 by mouth every Unknown Hydrobromide day with 20mg 10mg Tablets Metoprolol Tartrate take one tablet by Unknown mouth twice a day 50mg Tablets Torsemide 1 by mouth every Unknown 20mg day Tablets Magnesium Oxide -MG 1 by mouth every Unknown Supplement day 400mg Capsules Anoro Ellipta inhale 1 puff by Unknown mouth daily for 62.5-25mcg/Inh chronic Aerosol obstructive lung disease Medications Administered in Office Medication SIG Qnty Indications Ordering Provider Date Injection Subcutaneous Or Morgan Mccarthy M.D. 10/05/2018 Intramuscular Injection Immunizations CPT Code Status Date Vaccine Lot # [id number] Given 02/24/2018 Pneumococcal Immunization [id number] Given 02/24/2018 High-Dose, Influenza Virus Vacccine-fluzone 65 and [id number] older 27767 Given 03/17/2017 High-Dose, Influenza Virus Vacccine-fluzone 65 and [id number] older 69760 Given 03/20/2016 Pneumococcal Conjugate Vacc-13 [id number] Given 02/09/2014 High-Dose, Influenza Virus Vacccine-fluzone 65 and [id number] older 24501 Given 01/12/2013 DO Not Use Split Influenza Virus Vaccine 47146 Given 11/21/2011 DO Not Use Split Influenza Virus Vaccine 06692 Given 12/21/2010 DO Not Use Split Influenza Virus Vaccine 66874 Given 02/12/2007 DO Not Use Split Influenza Virus Vaccine 96532 Given 02/24/2001 DO Not Use Split Influenza Virus Vaccine Vital Signs Date Vital Result Comment 07/27/2019 2:23pm BP Systolic 96 mmHg BP Diastolic 60 mmHg Heart Rate 111 /min Body Temperature 97.6 F Respiratory Rate 16 /min O2 % BldC Oximetry 9632 % 12/23/2018 2:38pm BP Systolic 110 mmHg BP Diastolic 70 mmHg Heart Rate 72 /min Body Temperature 98.2 F Respiratory Rate 18 /min Results Test Acquired Date Facility Test Result H/L Range Note Laboratory test 07/16/2019 [facility] Troponin-I 0.47 ng/mL Critical <0.03 1 finding (TnI) high Influenza A & B 07/16/2019 [facility] Flu AB (SEE NOTE) 2 Request Disclaimer Influenza A Molecular Negative Negative Influenza B Molecular Negative Negative 3 CBC Auto Diff 07/16/2019 [facility] White Blood Count 8.3 10^3/uL Normal 3.5- 10.8 Red Blood Count 3.60 10^6/uL Low 3.70-4.87 Hemoglobin 10.8 g/dL Low 12.0-16.0 Hematocrit 33 % Low 35-47 Mean Corpuscular Volume 91 fL Normal 80-97 Mean Corpuscular Hemoglobin 30 pg Normal 27-31 Mean Corpuscular HGB Conc 33 g/dL Normal 31-36 Red Cell Distribution Width 18 % High 10-15 Platelet Count 183 10^3/uL Normal 150-450 Mean Platelet Volume 7.4 fL Normal 7.4-10.4 Abs Neutrophils 7.5 10^3/uL Normal 1.5-7.7 Abs Lymphocytes 0.3 10^3/uL Low 1.0-4.8 Abs Monocytes 0.4 10^3/uL Normal 0-0.8 Abs Eosinophils 0.0 10^3/uL Normal 0-0.6 Abs Basophils 0.0 10^3/uL Normal 0-0.2 Abs Nucleated RBC 0.0 10^3/uL Granulocyte % 90.6 % Lymphocyte % 4.2 % Monocyte % 4.5 % Eosinophil % 0.2 % Basophil % 0.5 % Nucleated Red Blood Cells % 0.4 Venous Blood Gas 07/16/2019 [facility] Venous Blood pH 7.43 Normal 7.32-7.43 Venous Pco2 45 mmHg Normal 41-51 Venous Po2 39.0 mmHg Normal 35-45 Venous O2 Saturation 66.2 % Low 70-80 Venous Blood Base Excess 4.8 mmol/L High 0.0-4.0 4 Venous Bicarbonate Hco3 27.7 mmol/L Normal 24-28 Comp Metabolic Panel 07/16/2019 [facility] Sodium 134 mmol/L Low 135-145 Potassium 3.9 mmol/L Normal 3.5-5.0 Chloride 95 mmol/L Low 101-111 Co2 Carbon Dioxide 28 mmol/L Normal 22-32 Anion Gap 11 mmol/L Normal 2-11 Glucose 156 mg/dL High 70-100 Blood Urea Nitrogen 45 mg/dL High 6-24 Creatinine 1.50 mg/dL High 0.51-0.95 BUN/Creatinine Ratio 30.0 High 8-20 Calcium 9.7 mg/dL Normal 8.6-10.3 Total Protein 7.3 g/dL Normal 6.4-8.9 Albumin 3.7 g/dL Normal 3.2-5.2 Globulin 3.6 g/dL Normal 2-4 Albumin/Globulin Ratio 1.0 Normal 1-3 Total Bilirubin 1.70 mg/dL High 0.2-1.0 Alkaline Phosphatase 69 U/L Normal 34-104 Alt 6 U/L Low 7-52 Ast 9 U/L Low 13-39 Egfr Non- 34.0 >60 Egfr 41.2 >60 5 Laboratory test 07/16/2019 [facility] Troponin-I (TnI) 0.34 ng/mL Critical high <0.03 6 finding B-Type Natriuretic Peptide BNP 849 pg/mL High <=100 Bilrubin And Indirect 07/16/2019 [facility] Direct Bilirubin 0.70 mg/dL High 0.03-0.18 Indirect Bilirubin 1.0 mg/dL Normal 0.3-1.0 Lipid Profile (Trig/Chol/HDL) 07/16/2019 [facility] Triglycerides 77 mg/dL 7 Cholesterol 96 mg/dL 8 HDL Cholesterol 26.2 mg/dL 9 LDL Cholesterol 54 mg/dL 10 Laboratory test 07/16/2019 [facility] Covid19, PCR Undetected Undetected 11 finding Laboratory test 05/01/2019 [facility] Troponin-I (TnI) 0.02 ng/mL <0.03 12 finding Laboratory test 04/30/2019 [facility] Troponin-I (TnI) 0.02 ng/mL <0.03 13 finding Comp Metabolic Panel 04/30/2019 [facility] Sodium 136 mmol/L Normal 135-145 Potassium 3.3 mmol/L Low 3.5-5.0 Chloride 94 mmol/L Low 101-111 Co2 Carbon Dioxide 33 mmol/L High 22-32 Anion Gap 9 mmol/L Normal 2-11 Glucose 164 mg/dL High 70-100 Blood Urea Nitrogen 40 mg/dL High 6-24 Creatinine 1.42 mg/dL High 0.51-0.95 BUN/Creatinine Ratio 28.2 High 8-20 Calcium 9.5 mg/dL Normal 8.6-10.3 Total Protein 7.0 g/dL Normal 6.4-8.9 Albumin 3.7 g/dL Normal 3.2-5.2 Globulin 3.3 g/dL Normal 2-4 Albumin/Globulin Ratio 1.1 Normal 1-3 Total Bilirubin 1.00 mg/dL Normal 0.2-1.0 Alkaline Phosphatase 72 U/L Normal 34-104 Alt 6 U/L Low 7-52 Ast 9 U/L Low 13-39 Egfr Non- 36.3 >60 Egfr 43.9 >60 14 Laboratory test 04/30/2019 [facility] Lactic Acid 2.0 mmol/L Normal 0.5-2.0 15 finding CBC Auto Diff 04/30/2019 [facility] White Blood Count 6.5 10^3/uL Normal 3.5- 10.8 Red Blood Count 3.08 10^6/uL Low 3.70-4.87 Hemoglobin 9.6 g/dL Low 12.0-16.0 Hematocrit 28 % Low 35-47 Mean Corpuscular Volume 91 fL Normal 80-97 Mean Corpuscular Hemoglobin 31 pg Normal 27-31 Mean Corpuscular HGB Conc 34 g/dL Normal 31-36 Red Cell Distribution Width 19 % High 10-15 Platelet Count 158 10^3/uL Normal 150-450 Mean Platelet Volume 7.5 fL Normal 7.4-10.4 Abs Neutrophils 5.6 10^3/uL Normal 1.5-7.7 Abs Lymphocytes 0.4 10^3/uL Low 1.0-4.8 Abs Monocytes 0.3 10^3/uL Normal 0-0.8 Abs Eosinophils 0.1 10^3/uL Normal 0-0.6 Abs Basophils 0.1 10^3/uL Normal 0-0.2 Abs Nucleated RBC 0.0 10^3/uL Granulocyte % 86.3 % Lymphocyte % 6.2 % Monocyte % 4.3 % Eosinophil % 1.9 % Basophil % 1.3 % Nucleated Red Blood Cells % 0.0 Laboratory test 04/30/2019 [facility] Troponin-I (TnI) 0.02 ng/mL <0.03 16 finding CBC Auto Diff 03/09/2019 [facility] White Blood Count 5.8 10^3/uL Normal 3.5- 10.8 Red Blood Count 3.81 10^6/uL Normal 3.70-4.87 Hemoglobin 11.6 g/dL Low 12.0-16.0 Hematocrit 35 % Normal 35-47 Mean Corpuscular Volume 92 fL Normal 80-97 Mean Corpuscular Hemoglobin 30 pg Normal 27-31 Mean Corpuscular HGB Conc 33 g/dL Normal 31-36 Red Cell Distribution Width 16 % High 10-15 Platelet Count 192 10^3/uL Normal 150-450 Mean Platelet Volume 7.7 fL Normal 7.4-10.4 Abs Neutrophils 5.0 10^3/uL Normal 1.5-7.7 Abs Lymphocytes 0.3 10^3/uL Low 1.0-4.8 Abs Monocytes 0.3 10^3/uL Normal 0-0.8 Abs Eosinophils 0.1 10^3/uL Normal 0-0.6 Abs Basophils 0.1 10^3/uL Normal 0-0.2 Abs Nucleated RBC 0.0 10^3/uL Granulocyte % 85.8 % Lymphocyte % 6.0 % Monocyte % 5.3 % Eosinophil % 1.7 % Basophil % 1.2 % Nucleated Red Blood Cells % 0.0 Venous Blood Gas 03/09/2019 [facility] Venous Blood pH 7.42 Normal 7.32-7.43 Venous Pco2 56 mmHg High 41-51 Venous Po2 43.0 mmHg Normal 35-45 Venous O2 Saturation 74.6 % Normal 70-80 Venous Blood Base Excess 9.7 mmol/L High 0.0-4.0 17 Venous Bicarbonate Hco3 31.8 mmol/L High 24-28 Laboratory test 03/09/2019 [facility] D Dimer > 1050 ng/mL High Less Than 18 finding Quantitative 230 Comp Metabolic 03/09/2019 [facility] Sodium 137 mmol/L Normal 135-145 Panel Potassium 3.9 mmol/L Normal 3.5-5.0 Chloride 95 mmol/L Low 101-111 Co2 Carbon Dioxide 34 mmol/L High 22-32 Anion Gap 8 mmol/L Normal 2-11 Glucose 146 mg/dL High 70-100 Blood Urea Nitrogen 38 mg/dL High 6-24 Creatinine 1.34 mg/dL High 0.51-0.95 BUN/Creatinine Ratio 28.4 High 8-20 Calcium 9.3 mg/dL Normal 8.6-10.3 Total Protein 6.8 g/dL Normal 6.4-8.9 Albumin 3.4 g/dL Normal 3.2-5.2 Globulin 3.4 g/dL Normal 2-4 Albumin/Globulin Ratio 1.0 Normal 1-3 Total Bilirubin 1.20 mg/dL High 0.2-1.0 Alkaline Phosphatase 65 U/L Normal 34-104 Alt 7 U/L Normal 7-52 Ast 11 U/L Low 13-39 Egfr Non- 38.8 >60 Egfr 46.9 >60 19 Laboratory test finding 03/09/2019 [facility] Magnesium 1.4 mg/dL Low 1.9-2.7 Troponin-I (TnI) 0.02 ng/mL <0.03 20 B-Type Natriuretic Peptide BNP 744 pg/mL High <=100 Urine Culture And Sensitivities 03/09/2019 [facility] Urine Culture SEE RESULT BELOW 21 Urinalysis Profile 02/23/2019 [facility] Urine Color Priyanka Urine Appearance Turbid Urine Specific Rhodelia 1.014 Normal 1.010-1.030 Urine pH 5.0 Normal 5-9 Urine Urobilinogen Negative Negative Urine Ketones Negative Negative Urine Protein 2+(100 mg/dL) Abnormal Negative Urine Leukocytes 3+ Abnormal Negative Urine Blood 2+ Abnormal Negative Urine Nitrite Positive Abnormal Negative Urine Bilirubin Negative Negative Urine Glucose Negative Negative Urine White Blood Cell 3+(>20/hpf) Abnormal Absent Urine Red Blood Cell 3+(>10/hpf) Abnormal Absent Urine Bacteria Absent Absent Urine Culture And 02/23/2019 [facility] Urine Culture SEE RESULT 22 Sensitivities BELOW Inr/Protime 02/23/2019 [facility] Inr 1.71 High 0.82-1.0 23 9 Laboratory test 02/23/2019 [facility] Lactic Acid 1.9 mmol/L Normal 0.5-2.0 24 finding CBC Auto Diff 02/23/2019 [facility] White Blood 8.2 10^3/uL Normal 3.5-10.8 Count Red Blood Count 4.44 10^6/uL Normal 3.70-4.87 Hemoglobin 13.8 g/dL Normal 12.0-16.0 Hematocrit 42 % Normal 35-47 Mean Corpuscular Volume 93 fL Normal 80-97 Mean Corpuscular Hemoglobin 31 pg Normal 27-31 Mean Corpuscular HGB Conc 33 g/dL Normal 31-36 Red Cell Distribution Width 15 % Normal 10-15 Platelet Count 159 10^3/uL Normal 150-450 Mean Platelet Volume 7.5 fL Normal 7.4-10.4 Abs Neutrophils 7.1 10^3/uL Normal 1.5-7.7 Abs Lymphocytes 0.4 10^3/uL Low 1.0-4.8 Abs Monocytes 0.4 10^3/uL Normal 0-0.8 Abs Eosinophils 0.1 10^3/uL Normal 0-0.6 Abs Basophils 0.1 10^3/uL Normal 0-0.2 Abs Nucleated RBC 0.0 10^3/uL Granulocyte % 87.5 % Lymphocyte % 4.5 % Monocyte % 5.4 % Eosinophil % 1.4 % Basophil % 1.2 % Nucleated Red Blood Cells % 0.1 Comp Metabolic Panel 02/23/2019 [facility] Sodium 134 mmol/L Low 135-145 Potassium 4.4 mmol/L Normal 3.5-5.0 Chloride 101 mmol/L Normal 101-111 Co2 Carbon Dioxide 24 mmol/L Normal 22-32 Anion Gap 9 mmol/L Normal 2-11 Glucose 131 mg/dL High 70-100 Blood Urea Nitrogen 26 mg/dL High 6-24 Creatinine 1.42 mg/dL High 0.51-0.95 BUN/Creatinine Ratio 18.3 Normal 8-20 Calcium 9.2 mg/dL Normal 8.6-10.3 Total Protein 6.7 g/dL Normal 6.4-8.9 Albumin 3.7 g/dL Normal 3.2-5.2 Globulin 3.0 g/dL Normal 2-4 Albumin/Globulin Ratio 1.2 Normal 1-3 Total Bilirubin 1.30 mg/dL High 0.2-1.0 Alkaline Phosphatase 73 U/L Normal 34-104 Alt 4 U/L Low 7-52 Ast 8 U/L Low 13-39 Egfr Non- 36.3 >60 Egfr 43.9 >60 25 Laboratory test finding 02/23/2019 [facility] Troponin-I (TnI) 0.03 ng/mL < 0.04 26 Magnesium 0.9 mg/dL Critical low 1.9-2.7 27 B-Type Natriuretic Peptide BNP 546 pg/mL High <=100 1 Result TnIDx:0.47 Called to [id number] at: 17:53:11 by:[id number] Read back by: [id number] Troponin-I testing on Plasma Separator Tubes (PST) has a known false positive rate of 0.20-0.40%. All positive troponins reflex immediately to secondary confirmatory testing. Using the [employer] DxI 800 Access Immunoassay systems, the 99th percentile upper reference limit was demonstrated to be < 0.03 ng/mL. 2 Suboptimal collection technique may reduce sensitivity of test. Refer to the [facility] Test Catalog for collection information: [email or web address].[email or web address] As with all diagnostic procedures, the laboratory results obtained should be used in conjunction with other clinical information available to the physician, including confirmation by another method, as applicable. 3 Head Of Biology: [id number] 4 Reference ranges based on room air. 5 Because ethnic data is not always readily available, this report includes an eGFR for both -Americans and non- Americans. The National Kidney Disease Education Program (NKDEP) does not endorse the use of the MDRD equation for patients that are not between the ages of 18 and 70, are , have extremes of body size, muscle mass, or nutritional status, or are non- or non-. According to the National Kidney Foundation, irrespective of diagnosis, the stage of the disease is based on the level of kidney function: Stage Description GFR(mL/min/1.73 m(2)) 1 Kidney damage with normal or decreased GFR 90 2 Kidney damage with mild decrease in GFR 60-89 3 Moderate decrease in GFR 30-59 4 Severe decrease in GFR 15-29 5 Kidney failure <15 (or dialysis) 6 Result TnIDx:0.34 Called to [id number] at: 14:50:46 by:[id number] Read back by: [id number] Troponin-I testing on Plasma Separator Tubes (PST) has a known false positive rate of 0.20-0.40%. All positive troponins reflex immediately to secondary confirmatory testing. Using the [employer] DxI 800 Access Immunoassay systems, the 99th percentile upper reference limit was demonstrated to be < 0.03 ng/mL. 7 Desirable: <150 Borderline High: 150-199 High: 200-499 Very High: >500 8 Desirable: <200 Borderline High: 200-239 High: >239 9 Low: <40 Desirable: 40-60 High: >60 10 Desirable: <100 Near Optimal: 100-129 Borderline High: 130-159 High: 160-189 Very High: >189 11 SARS-CoV-2 RNA is not detected. ADDITIONAL INFORMATION Testing was performed using the arleen SARS-CoV-2 assay ([employer] on the arleen PlaySight0 System. Fact sheets for this Emergency Use Authorization (EUA) assay can be found at the following links: For Healthcare Providers: https://www.fda.gov/media/531723/download For Patients: https://www.fda.gov/media/684311/download Test Performed by: [place] [address] Resident Care Supervisor: Davis Gabriel M.D. Ph.D.; CLIA# [id number] 12 Troponin-I testing on Plasma Separator Tubes (PST) has a known false positive rate of 0.20-0.40%. All positive troponins reflex immediately to secondary confirmatory testing. Using the [employer] DxI 800 Access Immunoassay systems, the 99th percentile upper reference limit was demonstrated to be < 0.03 ng/mL. 13 Troponin-I testing on Plasma Separator Tubes (PST) has a known false positive rate of 0.20-0.40%. All positive troponins reflex immediately to secondary confirmatory testing. Using the [employer] DxI 800 Access Immunoassay systems, the 99th percentile upper reference limit was demonstrated to be < 0.03 ng/mL. 14 Because ethnic data is not always readily available, this report includes an eGFR for both -Americans and non- Americans. The National Kidney Disease Education Program (NKDEP) does not endorse the use of the MDRD equation for patients that are not between the ages of 18 and 70, are , have extremes of body size, muscle mass, or nutritional status, or are non- or non-. According to the National Kidney Foundation, irrespective of diagnosis, the stage of the disease is based on the level of kidney function: Stage Description GFR(mL/min/1.73 m(2)) 1 Kidney damage with normal or decreased GFR 90 2 Kidney damage with mild decrease in GFR 60-89 3 Moderate decrease in GFR 30-59 4 Severe decrease in GFR 15-29 5 Kidney failure <15 (or dialysis) 15 [facility] Severe Sepsis and Septic Shock Management Bundle Measure requires all lactic acids initially measuring >2.0 mmol/L be repeated. 16 Troponin-I testing on Plasma Separator Tubes (PST) has a known false positive rate of 0.20-0.40%. All positive troponins reflex immediately to secondary confirmatory testing. Using the [employer] DxI 800 Access Immunoassay systems, the 99th percentile upper reference limit was demonstrated to be < 0.03 ng/mL. 17 Reference ranges based on room air. 18 Please note: The following may produce a false positive D Dimer test: - Rheumatoid factor greater than 60 IU/ml - Plasma hemoglobin greater than 0.05 gm/dl - Bilirubin greater than 50 mg/dl - Lipids greater than 1000 mg/dl - FDP greater than 20 ug/ml 19 Because ethnic data is not always readily available, this report includes an eGFR for both -Americans and non- Americans. The National Kidney Disease Education Program (NKDEP) does not endorse the use of the MDRD equation for patients that are not between the ages of 18 and 70, are , have extremes of body size, muscle mass, or nutritional status, or are non- or non-. According to the National Kidney Foundation, irrespective of diagnosis, the stage of the disease is based on the level of kidney function: Stage Description GFR(mL/min/1.73 m(2)) 1 Kidney damage with normal or decreased GFR 90 2 Kidney damage with mild decrease in GFR 60-89 3 Moderate decrease in GFR 30-59 4 Severe decrease in GFR 15-29 5 Kidney failure <15 (or dialysis) 20 Troponin-I testing on Plasma Separator Tubes (PST) has a known false positive rate of 0.20-0.40%. All positive troponins reflex immediately to secondary confirmatory testing. Using the [employer] DxI 800 Access Immunoassay systems, the 99th percentile upper reference limit was demonstrated to be < 0.03 ng/mL. 21 SEE RESULT BELOW Name: LITZY ROSADO : [address]: Jamil Pardo MD Acct: [id number] Unit: [id number] AGE: 73 Location: [place] [address] Re03/09/19 SEX: F Status: ADM Lizzette SPEC: [id number] YAIR: 03/10/[address] [facility] [address]: Stewart Hu MD REQ: [id number] RECD: 03/10/19 STATUS: NATHANAEL MOTLEY DR: Morgan Mccarthy MD _ SOURCE: URINE SPDESC: ORDERED: Urine Culture Procedure Result Reported Site Urine Culture Final 03/11/19- 0917 ML No growth of clinically significant organisms * ML - Main Lab . END OF REPORT DEPARTMENT OF PATHOLOGY, [address] [place] [address] Guillermo Soliman M.D. Director [facility] # [id number] 22 SEE RESULT BELOW Name: LITZY ROSADO : [address]: Robinson Lynch MD Acct: [id number] Unit: [id number] AGE: 73 Location: [place] [address] Re02/24/19 SEX: F Status: ADM IN SPEC: [id number] YAIR: 02/23/[address]: Jo FLOWER REQ: [id number] RECD: 02/23/19 STATUS:NATHANAEL MOTLEY DR: Stewart Mccarthy MD _ SOURCE: URINE SPDESC: ORDERED: Urine Culture Procedure Result Reported Site Urine Culture Final 02/25/19- 1006 ML Organism 1 ESCHERICHIA COLI [place] Count >100,000 (Many) CFU/ML 1. ESCHERICHIA COLI M.I.C. RX --------- ------ Ampicillin 8 S Cefazolin <=4 S Cefepime <=1 S Ceftriaxone <=1 S Ciprofloxacin <=0.25 S Gentamicin <=1 S Levofloxacin <=0.12 S Meropenem <=0.25 S Nitrofurantoin <=16 S Tetracycline <=1 S Pipercillin/Tazobactam <=4 S Trimethoprim/Sulfamethoxazole <=20 S Amoxicillin/Clavulanic Acid 4 S Aztreonam <=1 S Contact the Microbiology Department for any additional antibiotic reporting. * ML - Main Lab . END OF REPORT DEPARTMENT OF PATHOLOGY, [address] [place] [address] Guillermo Soliman M.D. Director [facility] # [id number] 23 Standard intensity warfarin therapeutic range: 2.0-3.0 High intensity warfarin therapeutic range: 2.5-3.5 24 [facility] Severe Sepsis and Septic Shock Management Bundle Measure requires all lactic acids initially measuring >2.0 mmol/L be repeated. 25 Because ethnic data is not always readily available, this report includes an eGFR for both -Americans and non- Americans. The National Kidney Disease Education Program (NKDEP) does not endorse the use of the MDRD equation for patients that are not between the ages of 18 and 70, are , have extremes of body size, muscle mass, or nutritional status, or are non- or non-. According to the National Kidney Foundation, irrespective of diagnosis, the stage of the disease is based on the level of kidney function: Stage Description GFR(mL/min/1.73 m(2)) 1 Kidney damage with normal or decreased GFR 90 2 Kidney damage with mild decrease in GFR 60-89 3 Moderate decrease in GFR 30-59 4 Severe decrease in GFR 15-29 5 Kidney failure <15 (or dialysis) 26 Troponin-I testing on Plasma Separator Tubes (PST) has a known false positive rate of 0.20-0.40%. All positive troponins reflex immediately to secondary confirmatory testing. Using the Ascend[employer] SpineI 800 Access Immunoassay systems, the 99th percentile upper reference limit was demonstrated to be < 0.03 ng/mL. 27 Critical Result M.9 Called to [id number] at: 14:04:31 by:[id number] Read back by:[id number] Procedures Date Code Description Status 07/01/2016 [id number] Mammogram Completed 01/16/2015 [id number] Mammogram Completed 01/13/2014 [id number] Mammogram Completed 05/19/2012 [id number] Colonoscopy Completed 07/17/2010 [id number] Mammogram Completed 06/19/2010 [id number] Bone Mineral Density Test Completed 06/13/2008 [id number] Mammogram Completed 03/17/2007 [id number] Colonoscopy Completed 11/21/2006 [id number] Mammogram Completed Medical Devices Description No Information Available Encounters Type Date Location Provider Dx Diagnosis Office Visit 07/27/2019 [facility] Office Morgan Alfaro I48.0 Paroxysmal atrial 2:00p Virgilio Mccarthy fibrillation E11.9 Type 2 diabetes mellitus without complications J44.9 Chronic obstructive pulmonary disease, unspecified Assessments Date Code Description Provider 07/27/2019 I48.0 Paroxysmal atrial fibrillation Morgan Mccarthy M.D. 07/27/2019 E11.9 Type 2 diabetes mellitus without Morgan J. Breiman, M.D. complications 07/27/2019 J44.9 Chronic obstructive pulmonary disease, Morgan Mccarthy M.D. unspecified 03/04/2019 J90 Pleural effusion, not elsewhere classified Morgan Mccarthy M.D. 03/04/2019 I48.0 Paroxysmal atrial fibrillation Morgan Mccarthy M.D. 03/04/2019 R09.02 Hypoxemia Morgan Mccarthy M.D. 02/25/2019 I95.9 Hypotension, unspecified Morgan Mccarthy M.D. 02/24/2019 I48.0 Paroxysmal atrial fibrillation Morgan Mccarthy M.D. Plan of Treatment 02/02/2015 - Ada Perez, BREAJ20.9 Acute bronchitis, unspecifiedNew Medication: Proair HFA 108(90 Base) mcg/Act - 2 puffs every 4 hours as neededAzithromycin 250 mg - 2 by mouth today and 1 tab x 4 daysComments:Increase fluidsMucinex DM bidTylenol prnUse Albuterol inhaler 2 puffs every 4 hours regularly x 3 - 4 days and then prnImportance of quitting smoking discussedCall if sx persist or worsen Functional Status Description No Information Available Mental Status Description No Information Available Referrals Description No Information Available
--- OUTSIDE RECORDS SUMMARY | 2019-08-06 13:51 | XMS REPORT | Continuity of Care Document ---
:1945 External Reference #:[id number] Author Name Olman Hernández M.D. (transmitted by agent of provider Shreya Pierce) Address [address] [place] [id number] Care Team Providers Name Role Phone Morgan Mccarthy MD - Family Medicine Care Team Information Clinical Support Manager [phone] Problems Active Problems Provider Date Type 2 [...] Unknown ETOH Use Drinks Alcoholic Beverages at [place] Rarely Tobacco Use Start: Unknown Patient is [...] day N.P. Botox injection per 1units Sergio Doss 05/18/[address]Gaffney bran Poe M.D. Rec 90 days Rx please use o2 at 1units R09.02 Kathy Green, 03/05/2016 Misc 2l/min at night and 2L/min during the day Pt states she only uses at night Cardizem CD 1 by mouth once 90caps R06.00 Delores Wynne, 06/02/2014 120mg Caps ER in in the morning N.P. 24HR Metoprolol Tartrate 1 by mouth twice Unknown 50mg a day Tablets Vitamin B-12 ER 1 by mouth every Unknown 1000mcg day Tablets ER Iron 1 by mouth every Unknown 325(65Fe) mg Tablets day Singulair 1 by mouth every Unknown 10mg Tablets day Torsemide 1 by mouth every Unknown 20mg Tablets day Cholestyramine Light 1 pkt qd Unknown 4gm Packet Metolazone 1 po three times Unknown 5mg Tablets weekly -W- Citalopram 1.5 tabs daily Unknown Hydrobromide 20mg Tablets Atenolol 1 by mouth bid Unknown 25mg Tablets Tramadol HCL 1 tablets by Unknown 50mg Tablets mouth every 6 hours as needed pain Proair HFA 2 puffs every 4 Unknown 108(90Base) hours as needed mcg/Act Aerosol Alendronate Sodium once a week Fabio, 70mg MD Morgan Tablets Incruse Ellipta As directed Carolann Chand C ,CFNP 62.5mcg/Inh Aerosol Omeprazole 1 by mouth daily Unknown 20mg Capsules DR Acetaminophen prn Unknown Medications Administered in Office Medication SIG Qnty Indications Ordering Provider Date Injection Onabotulinumtoxin Sergio Frye M.D. 07/03/2018 1 Unit Injection Injection Onabotulinumtoxin Sergio Frye M.D. 02/18/2018 1 Unit Injection Injection Onabotulinumtoxin Sergio Frye M.D. 11/17/2017 1 Unit Injection Injection Onabotulinumfuentesxin Sergio Frye M.D. 08/06/2017 1 Unit Injection Injection Onabotulinumtoxin Sergio Frye M.D. 08/28/2016 1 Unit Injection Injection Whitneyotulinumfuentesxin Sergio Frye M.D. 08/28/2016 1 Unit Injection Injection Whitneyotulinumfuentesxin Sergio Frye M.D. 08/28/2016 1 Unit Injection Injection Whitneyotulinumfuentesxin Sergio Frye M.D. 05/30/2016 1 Unit Injection Injection Whitneyotulinumfuentesxin Sergio Frye M.D. 02/26/2016 1 Unit Injection Injection Sergio Smith M.D. 06/27/2015 1 Unit Injection Injection Sergio Smith M.D. 03/08/2015 1 Unit Injection Injection WhitneyotulinumSergio Johnson M.D. 12/06/2014 1 Unit Injection Injection Kongabotulinumtoxin ASergio M.D. 08/23/2014 1 Unit Injection Injection Onabotulinumtoxin Sergio Frye M.D. 05/24/2014 1 Unit Injection Injection Onabotulinumtoxin Sergio Frye M.D. 02/16/2014 1 Unit Injection Injection Onabotulinumfuentesxin Sergio Frye M.D. 11/09/2013 1 Unit Injection Injection Onabotulinumtoxin Sergio Frye M.D. 08/10/2013 1 Unit Injection Injection Onabotulinumfuentesxin Sergio Frye M.D. 05/12/2013 1 Unit Injection Injection Onabotulinumfuentesxin Sergio Frye M.D. 02/09/2013 1 Unit Injection Injection OnabotulinumSergio Johnson M.D. 11/03/2012 1 Unit Injection Injection Kongabotulinumfuentesxin Sergio Frye M.D. 07/29/2012 1 Unit Injection Injection Onabotulinumfuentesxin Sergio Frye M.D. 07/29/2012 1 Unit Injection Injection Onabotulinumtoxin Sergio Frye M.D. 04/28/2012 1 Unit Injection Injection Kongabotulinumfuentesxin Sergio Frye M.D. 04/28/2012 1 Unit Injection Injection Onabotulinumtoxin Sergio Frye M.D. 01/22/2012 1 Unit Injection Injection Onabotulinumfuentesxin Sergio Frye M.D. 01/22/2012 1 Unit Injection Immunizations CPT Code Status Date Vaccine Lot # [id number] Given 02/26/2016 Influ Virus Vaccine, Quadrivalent, Split Virus, Im [id number] Fluzone not PF [id number] Given 02/20/2015 Fluvirin [...] Information Available Procedures Date Code Description Status 07/16/2019 16160 EKG, Interpretation Only Completed 03/04/2019 88986 EKG, Interpretation Only Completed 03/04/2019 71912 Thoracentesis W/ Img Guidance Completed 04/09/2001 [id number] Diabetic Retinal Eye Exam Completed Medical Devices Description No Information Available Encounters Type Date Location Provider Dx Diagnosis Office Visit 07/20/2019 [facility] Davis Prabhakar, N39.0 Urinary tract 8:16a Assoc,nisha FLOWER infection, site Hospitalists not specified B96.4 Proteus (mirabilis) (morganii) causing dis classd elswhr I50.31 Acute diastolic (congestive) heart failure J96.21 Acute and chronic respiratory failure with hypoxia I48.20 Chronic atrial fibrillation, unspecified K21.9 Gastro-esophageal reflux disease without esophagitis Z03.818 Encntr for obs for susp expsr to oth biolg agents ruled out Office Visit 07/19/2019 8:16a [facility] Davis J96.21 Acute and chronic Assoc,CHING Bender respiratory Hospitalists failure with hypoxia N39.0 Urinary tract infection, site not specified T83.511A I/I react d/t indwelling urethral catheter, init F32.9 Major depressive disorder, single episode, unspecified Office Visit 07/18/2019 8:15a [facility] Davis Maldonado96.21 Acute and chronic Assoc,CHING Bender respiratory Hospitalists failure with hypoxia D64.9 Anemia, unspecified N39.0 Urinary tract infection, site not specified T83.511A I/I react d/t indwelling urethral catheter, init Office Visit 07/17/2019 8:15a [facility] Davis Maldonado96.21 Acute and chronic Assoc,CHING Bender respiratory Hospitalists failure with hypoxia I50.9 Heart failure, unspecified I48.91 Unspecified atrial fibrillation D64.9 Anemia, unspecified Office Visit 07/16/2019 [facility] Carolann R.Adrianna, N17.9 Acute kidney 8:14a Assoc,pc BATCH BLENDER failure, Hospitalists unspecified J44.1 Chronic obstructive pulmonary disease w (acute) exacerbation I50.9 Heart failure, unspecified D64.9 Anemia, unspecified I48.91 Unspecified atrial fibrillation Office Visit 03/12/2019 [facility] Antoinette I11.0 Hypertensive heart 9:24a Assoc,nisha Lafleur, PA-C disease with heart Hospitalists failure R09.02 Hypoxemia I50.9 Heart failure, unspecified R40.0 Somnolence J44.9 Chronic obstructive pulmonary disease, unspecified Office Visit 03/09/2019 9:22a [facility] Odetteotny Vidalham, R40.0 Somnolence Assoc,pc PA Hospitalists J96.20 Acute and chr resp failure, unsp w hypoxia or hypercapnia I48.91 Unspecified atrial fibrillation R33.9 Retention of urine, unspecified J44.9 Chronic obstructive pulmonary disease, unspecified Office Visit 03/08/2019 [facility] Cale Parham I11.0 Hypertensive heart 8:53a Assoc,nisha Pardo M.D.,FACP disease with heart Hospitalists failure I50.33 Acute on chronic diastolic (congestive) heart failure I48.91 Unspecified atrial fibrillation J90 Pleural effusion, not elsewhere classified R33.9 Retention of urine, unspecified J96.91 Respiratory failure, unspecified with hypoxia Office Visit 03/07/2019 8:53a [facility] Juanis Diledith, J96.21 Acute and chronic Assocnisha MD respiratory Hospitalists failure with hypoxia I50.9 Heart failure, unspecified R33.9 Retention of urine, unspecified Office Visit 03/06/2019 8:52a [facility] Juanis Diledith, R33.9 Retention of Assoc,nisha CHAIDEZ urine, unspecified Hospitalists I11.0 Hypertensive heart disease with heart failure I50.33 Acute on chronic diastolic (congestive) heart failure Office Visit 03/05/2019 3:45p Pulmonology And Kathy J90 Pleural effusion, [facility] MD Norma not elsewhere Gizzard Skin Remover classified J96.91 Respiratory failure, unspecified with hypoxia J44.9 Chronic obstructive pulmonary disease, unspecified Office Visit 03/05/2019 8:52a [facility] Juanis Dill, R33.9 Retention of Assoc,nisha CHAIDEZ urine, unspecified Hospitalists I11.0 Hypertensive heart disease with heart failure I50.33 Acute on chronic diastolic (congestive) heart failure Office Visit 03/04/2019 1:24p Pulmonology And Kathy J90 Pleural effusion, [facility] MD Norma not elsewhere Gizzard Skin Remover classified Office Visit 03/04/2019 8:52a [place] Elliot Polanco MD R33.9 Retention of Assoc,pc urine, Hospitalists unspecified I11.0 Hypertensive heart disease with heart failure I50.33 Acute on chronic diastolic (congestive) heart failure J90 Pleural effusion, not elsewhere classified Office Visit 03/03/2019 8:51a [place] Elliot Polanco, R33.9 Retention of Assoc,nisha CHAIDEZ urine, unspecified Hospitalists I11.0 Hypertensive heart disease with heart failure I50.33 Acute on chronic diastolic (congestive) heart failure J90 Pleural effusion, not elsewhere classified Office Visit 03/03/2019 1:23p Pulmonology And Kathy J90 Pleural effusion, [facility] MD Norma not elsewhere Gizzard Skin Remover classified Office Visit 03/02/2019 8:51a [place] Elliot Polanco MD J96.91 Respiratory Assoc,pc failure, Hospitalists unspecified with hypoxia I11.0 Hypertensive heart disease with heart failure J90 Pleural effusion, not elsewhere classified Office Visit 03/01/2019 8:51a [place] Elliot Polanco, R33.9 Retention of Assocnisha MD urine, unspecified Hospitalists J96.91 Respiratory failure, unspecified with hypoxia I11.0 Hypertensive heart disease with heart failure I48.91 Unspecified atrial fibrillation Office Visit 02/28/2019 8:50a [place] I11.0 Hypertensive heart Assoc,pc Virgilio Lynch disease with heart Hospitalists failure I50.33 Acute on chronic diastolic (congestive) heart failure J90 Pleural effusion, not elsewhere classified M25.569 Pain in unspecified knee Office Visit 02/27/2019 8:50a [place] I11.0 Hypertensive heart Assoc,pc Virgilio Lynch disease with heart Hospitalists failure I50.33 Acute on chronic diastolic (congestive) heart failure J90 Pleural effusion, not elsewhere classified E11.9 Type 2 diabetes mellitus without complications M25.569 Pain in unspecified knee Office Visit 02/26/2019 8:49a [facility] Asia I11.0 Hypertensive heart Assoc,nisha Avendano MD disease with heart Hospitalists failure I50.33 Acute on chronic diastolic (congestive) heart failure R09.02 Hypoxemia Office Visit 02/25/2019 8:49a [facility] Robinson J96.91 Respiratory Assocnisha M.D. failure, Hospitalists unspecified with hypoxia I95.89 Other hypotension I11.0 Hypertensive heart disease with heart failure I50.33 Acute on chronic diastolic (congestive) heart failure J90 Pleural effusion, not elsewhere classified Office Visit 02/24/2019 8:49a [facility] Robinson J96.91 Respiratory Assoc,nisha Lynch M.D. failure, Hospitalists unspecified with hypoxia I11.0 Hypertensive heart disease with heart failure I50.33 Acute on chronic diastolic (congestive) heart failure I95.9 Hypotension, unspecified I48.91 Unspecified atrial fibrillation J90 Pleural effusion, not elsewhere classified N39.0 Urinary tract infection, site not specified M25.569 Pain in unspecified knee Office Visit 02/23/2019 [facility] Antoinette I48.91 Unspecified atrial 8:48a [...] 07/17/2019 D64.9 Anemia, unspecified CHING Arriaza 07/16/2019 R94.31 Abnormal electrocardiogram [ECG] Olman Hernández M.D. [EKG] 07/16/2019 N17.9 Acute kidney failure, unspecified Carolann Olivier NP 07/16/2019 J44.1 Chronic obstructive pulmonary disease Carolann Olivier NP with (acute) exacerbation 07/16/2019 I50.9 Heart failure, unspecified Carolann Olivier NP 07/16/2019 D64.9 Anemia, unspecified Carolann Olivier NP 07/16/2019 I48.91 Unspecified atrial fibrillation Carolann Olivier NP 03/12/2019 I11.0 Hypertensive heart disease with heart Antoinette Lafleur PA-C failure 03/12/2019 R09.02 Hypoxemia Antoinette Lafleur PA-C 03/12/2019 I50.9 Heart failure, unspecified Antoinette Lafleur PA-C 03/12/2019 R40.0 Somnolence Antoinette O'giovanna, PA-C [...] Antoinette O'giovanna, PA-C 03/09/2019 R40.0 Somnolence Odettetony Fischer, PA 03/09/2019 J96.20 Acute and chronic respiratory Odette Fischer PA failure, unspecified whether with hypoxia or hypercapnia 03/09/2019 I48.91 Unspecified atrial fibrillation Odettetony Fischer, PA 03/09/2019 R33.9 Retention of urine, [...] 02/24/2019 M25.569 Pain in unspecified knee Robinson Lycnh M.D. 02/23/2019 I48.91 Unspecified atrial fibrillation Antoinette [...]
--- OUTSIDE RECORDS SUMMARY | 2019-08-06 13:51 | XMS REPORT ---
:1945 Author Organization [facility] Care Team Providers Name Role Phone Unavailable Unavailable Unavailable Problems Condition Condition Condition Status Onset Resolution Last Treating Comments Name Details Category Date Date Treatment Clinician Date Hypertensiv Hypertensiv Diagnosis Active 2018-04 Shreya e heart and e heart and 05-12 Ethan chronic chronic [id number] kidney kidney disease disease with heart with heart failure and failure and stage 1 stage 1 through through stage 4 stage 4 chronic chronic kidney kidney disease, or disease, or unspecified unspecified chronic chronic kidney kidney disease disease Heart Heart Diagnosis Active 2018-04 Shreya failure, failure, 05-12 Ethan unspecified unspecified [id number] Type 2 Type 2 Diagnosis Active 2018-04 Shreya diabetes diabetes 05-12 Ethan mellitus mellitus [id number] with with diabetic diabetic chronic chronic kidney kidney disease disease Chronic Chronic Diagnosis Active 2018-04 Shreya kidney kidney 05-12 Ethan disease, disease, [id number] unspecified unspecified Unspecified Unspecified Diagnosis Active 2018-04 Shreya atrial atrial 05-12 Ethan fibrillatio fibrillatio [id number] n n Chronic Chronic Diagnosis Active 2018-04 Shreya obstructive obstructive 05-12 Ethan pulmonary pulmonary [id number] disease, disease, unspecified unspecified 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 Active Shreya chronic chronic Ethan kidney kidney [id number] disease disease Obstructive Obstructive Diagnosis Active Shreya sleep apnea sleep apnea Ethan (adult) (adult) [id number] (pediatric) (pediatric) Acute and Acute and Diagnosis Active Shreya chronic chronic Ethan respiratory respiratory [id number] failure failure with with hypoxia hypoxia Lymphedema, Lymphedema, Diagnosis Active Shreya not not Ethan elsewhere elsewhere [id number] classified classified Retention Retention Diagnosis Active Shreya of urine, of urine, Ethan unspecified unspecified 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 without without [id number] dysplasia dysplasia Gastro-esop Gastro-esop Diagnosis Active Shreya hageal hageal Ethan reflux reflux [id number] disease disease without without esophagitis esophagitis Unspecified Unspecified Diagnosis Active Shreya osteoarthri osteoarthri Ethan tis, tis, [id number] unspecified unspecified site site Unspecified Unspecified Diagnosis Active Shreya cataract cataract Ethan [id number] Major Major Diagnosis Active Shreya depressive depressive Ethan disorder, disorder, [id number] single single episode, episode, unspecified unspecified Age-related Age-related Diagnosis Active Shreya osteoporosi osteoporosi Ethan s without s without [id number] current current pathologica pathologica l fracture l fracture Dependence Dependence Diagnosis Active Shreya on on Ethan supplementa supplementa [id number] l oxygen 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) (current) Ethan use of use of [id number] anticoagula anticoagula nts nts Personal Personal Diagnosis Active Shreya history of history of Ethan transient transient [id number] ischemic ischemic attack attack (TIA), and (TIA), and cerebral cerebral infarction infarction without without residual residual deficits deficits 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 al fluid [id number] drainage drainage device device Personal Personal Diagnosis Active Shreya history of history of Ethan nicotine nicotine [id number] dependence dependence Encounter Encounter Diagnosis Active Shreya for fitting for fitting Ethan and and [id number] adjustment adjustment of urinary of urinary device device Personal Personal Diagnosis Active Shreya history of history of Ethan urinary urinary [id number] (tract) (tract) infections infections Other long Other long Diagnosis Active Shreya term term Ethan (current) (current) [id number] drug drug therapy therapy Pain frequent Pain Mgmt Active 2019-0 Kaila pain 07-20 [place] 11:30: [id number] 00 Respiratory dyspnea Respirator Active 2019-0 Kaila present y 07-20 [place] 11:30: [id number] 00 Respiratory oxygen Respirator Active 2019-0 Kaila treatments y 07-20 [place] in home 11:30: [id number] 00 Respiratory smoker Respirator Active 2020-0 Akila y 07-20 [place] 11:30: [id number] 00 Endo/Ernie diabetic Endo/Ernie Active 2020-0 Kaila foot care 07-20 [place] 11:30: [id number] 00 Endo/Ernei anti-coagul Endo/Ernie Active 2020-0 Kaila ation 07-20 [place] therapy 11:30: [id number] 00 Sensory impaired Sensory Active 2020-0 Kaila hearing 07-20 [place] 11:30: [id number] 00 Nutrition nutritional Nutrition Active 2020-0 Kaila restriction 07-20 [place] s 11:30: [id number] 00 Elimination recurring Eliminatio Active 2020-0 Kaila UTI n 07-20 [place] 11:30: [id number] 00 Elimination UTI within Eliminatio Active 2020-0 Kaila past 14 n 07-20 [place] days 11:30: [id number] 00 Elimination catheter Eliminatio Active 2020-0 Kaila present n 07-20 [place] 11:30: [id number] 00 Neuro confusion Neuro/Emot Active 2020-0 Kaila present ion 07-20 [place] 11:30: [id number] 00 Neuro impaired Neuro/Emot Active 2020-0 Kaila decision-ma ion 07-20 [place] juan manuel 11:30: [id number] 00 Neuro memory Neuro/Emot Active 2020-0 Kaila deficit ion 07-20 [place] needing 11:30: [id number] supervision 00 Activity ADL Activity Active 2020-0 Kaila assistance 07-20 [place] required 11:30: [id number] 00 Activity self-care Activity Active 2020-0 Kaila deficit 07-20 [place] 11:30: [id number] 00 Safety structural Safety Active 2020-0 Kaila barriers 07-20 [place] present 11:30: [id number] 00 Safety sanitation Safety Active 2020-0 Kaila hazards 07-20 [place] present 11:30: [id number] 00 Safety cannot be Safety Active 2020-0 Kaila left alone 07-20 [place] 11:30: [id number] 00 Safety fall risk Safety Active 2020-0 Kaila factor 07-20 [place] present 11:30: [id number] 00 Safety risk for Safety Active 2020-0 Kaila hospitaliza 07-20 [place] tion 11:30: [id number] 00 Medication oral med Meds Active 2020-0 Kaila assistance 07-20 [place] required 11:30: [id number] 00 Medication knowledge/s Meds Active 2020-0 Kaila kill 07-20 [place] deficit: pt 11:30: [id number] 00 Medication knowledge/s Meds Active 2020-0 Kaila kill 07-20 [place] deficit: cg 11:30: [id number] 00 Musculoskel transfer Musculoske Active 2020-0 Kaila etal assistance letal 07-20 [place] required 11:30: [id number] 00 Musculoskel requires Musculoske Active 2020-0 Kaila etal human letal 07-20 [place] assist to 11:30: [id number] leave home 00 Cath/Ostomy k/s Cath\Ostom Active 2020-0 Kaila /GI deficit: y\GI Care 07-20 [place] cath/ost/GI 11:30: [id number] care - pt 00 Cath/Ostomy k/s Cath\Ostom Active 2020-0 Kaila /GI deficit: y\GI Care 07-20 [place] cath/ost/GI 11:30: [id number] care - cg 00 Respiratory lung sounds Respirator Active 2019-0 Shreya deficit y 07-22 [place] 11:30: [id number] 00 Safety can be left Safety Active 2019-0 Shreya alone for 07-22 Ethan only short 11:30: [id number] periods 00 Bed mobility/tr PT/OT: Bed Resolve 2019-07-26 Archie Mobility/Tr tony Mobility/T d 07-25 12:47:00 Chelo jimenez device ransfer 12:47: [id number] present 00 Bed transfer PT/OT: Bed Resolve 2019-07-26 Archie Mobility/Tr deficit: Mobility/T d 07-25 12:47:00 Chelo jimenez shower/tub ransfer 12:47: [id number] 00 Bed transfer PT/OT: Bed Resolve 2019-07-26 Archie Mobility/Tr deficit: Mobility/T d 07-25 12:47:00 Chelo jimenez vehicle ransfer 12:47: [id number] 00 Bed knowledge/s PT/OT: Bed Resolve 2019-07-26 Archie Mobility/Tr kill Mobility/T d 07-25 12:47:00 Kobziewicz ansfer deficit: pt ransfer 12:47: [id number] 00 Balance/End balance/testing coordinator PT/OT: Active Archie urance rdination Balance/En 07-25 Kobziewicz deficit durance 12:47: [id number] 00 Gait/Locomo stair PT/OT: Active Archie tion management Gait/Locom 07-25 Kobziewicz problems req otion 12:47: [id number] 00 Gait/Locomo gait PT/OT: Active Archie tion assistive Gait/Locom 07-25 Kobziewicz problems device otion 12:47: [id number] present 00 Gait/Locomo gait PT/OT: Active Archie tion deficit Gait/Locom 07-25 Kobziewicz problems otion 12:47: [id number] 00 Safety fire risk: Safety Active Shreya smoking/O2 07-27 Ethan in use 11:15: [id number] 00 Safety fire risk Safety Active Shreya present 07-27 [place] 11:15: [id number] 00 Medication potential Meds Active Shreya clinically 07-27 Ethan significant 11:15: [id number] medication 00 issue Allergies, Adverse Reactions, Alerts [...] Unknown 20 mg 20 mg 07-20 Morgan CHAIEDZ tablet tablet Eliquis 5 Eliquis 5 2019-0 [...] Observation Time Observation Value Comments SYSTOLIC mm[Hg] 2019-08-03 18:11:23 140 mm[Hg] mm[Hg] Method: Sit SYSTOLIC mm[Hg] 2019-07-21 18:11:10 120 mm[Hg] mm[Hg] Method: Stand DIASTOLIC mm[Hg] 2019-08-03 18:11:23 80 mm[Hg] mm[Hg] Method: Sit DIASTOLIC mm[Hg] 2019-07-21 18:11:10 80 mm[Hg] mm[Hg] Method: Stand PULSE 2019-08-03 18:11:23 83 /min /min RESP RATE 2019-08-03 18:11:23 18 /min /min TEMP 2019-08-03 18:11:23 98.1 [degF] Procedures This patient has no known procedures. Results Test Description Test Time Test Comments Text Results Atomic Results Result Comments Serum or plasma calcium 2019-07-19 10:45:00 Identifier 05862-5 Result Unknown measurement (mass/volume) Time 2019-07-19 10:45:00 Test Item Value Reference Range Comments Serum or plasma calcium measurement (mass/volume) (test 10.0 mg/dL Unknown Unknown F code = 68975-6) Ordering Physician UnknownSerum or plasma magnesium measurement (mass/volume) 2019-07-19 10:45:00Identifier 77026-9 Result Time 2019-07-19 10:45:00Unknown Test Item Value Reference Range Comments Serum or plasma magnesium measurement 1.9 mg/dL Unknown Unknown F (mass/volume) (test code = 28718-1) Ordering Physician UnknownSerum or plasma carbon dioxide, [...] Ordering Physician UnknownSerum or plasma urea nitrogen/creatinine [id number]- 30 10:45:00Identifier 3097-3 Result Time 2019-07-19 10:45:00Unknown Test Item Value Reference Range Comments Serum or plasma urea nitrogen/creatinine 30.7 Unknown Unknown F ratio (test code = 3097-3) Ordering Physician UnknownAutomated blood platelet mean volume [id number]- 03-30 10:45:00Identifier 15612-4 Result Time 2019-07-19 10:45:00Unknown Test Item Value Reference Range Comments Automated blood platelet mean volume 7.4 fL Unknown Unknown F measurement (test code = 16296-4) Ordering Physician UnknownSerum or plasma anion [id number] 10:45: 00Identifier 79681-0 Result Time 2019-07-19 10:45:00Unknown Test Item Value Reference Range Comments Serum or plasma anion gap (test code = 10 mmol/L Unknown Unknown F 15642-4) Ordering Physician UnknownAutomated blood leukocytes count corrected for nucleated erythrocytes (number/volume)2019-07-19 10:45:00Identifier 74269-0 Result Time 2019-07-19 10:45:00Unknown Test Item Value Reference Range Comments Automated blood leukocytes count 7.9 10^3/uL Unknown Unknown F corrected for nucleated erythrocytes (number/volume) (test code = 78020-5) Ordering Physician UnknownAutomated blood nucleated erythrocytes qmzxcvoxs9622- 03-30 10:45:00Identifier 19236-7 Result Time 2019-07-19 10:45:00Unknown Test Item Value Reference Range Comments Automated blood nucleated erythrocytes 0.1 Unknown Unknown F detection (test code = 76357-2) Ordering Physician UnknownAutomated blood hematocrit (percentage)2019-07-19 10: 45:00Identifier 4544-3 Result Time 2019-07-19 10:45:00Unknown Test Item Value Reference Range Comments Automated blood hematocrit (percentage) (test 33 % Unknown Unknown F code = 4544-3) Ordering Physician UnknownEstimated glomerular filtration rate (GFR) non- Ewoonjik8636-28-71 10:45:00Identifier 89913-7 Result Time 2019-07-19 10: 45:00Unknown Test Item Value Reference Range Comments Estimated glomerular filtration rate (GFR) 41.2 Unknown Unknown F non- (test code = 96769-0) Ordering Physician UnknownAutomated blood monocytes/100 [id number] 10: 45:00Identifier 5905-5 Result Time 2019-07-19 10:45:00Unknown [...] = 704-7) Ordering Physician UnknownAutomated blood basophils/100 [id number] 10: 45:00Identifier 706-2 Result Time 2019-07-19 10:45:00Unknown [...] = 711-2) Ordering Physician UnknownAutomated blood eosinophils/100 [id number] 10:45:00Identifier 713-8 Result Time 2019-07-19 10:45:00Unknown Test [...] = 731-0) Ordering Physician UnknownAutomated blood lymphocytes/100 opiewhmnvu4789-94-14 10:45:00Identifier 736-9 Result Time 2019-07-19 10:45:00Unknown Test Item Value Reference Range Comments Automated blood lymphocytes/100 leukocytes 3.0 % Unknown Unknown F (test code = 736-9) Ordering Physician UnknownBlood monocytes automated count (number/volume)2019-06 10:45:00Identifier 742-7 Result Time 2019-07-19 10:45:00Unknown Test Item Value Reference Range Comments Blood monocytes automated count 0.4 10^3/ul Unknown Unknown F (number/volume) (test code = 742-7) Ordering Physician UnknownAutomated blood neutrophils/100 jjggsydezb1728-02-55 10:45:00Identifier 770-8 Result Time 2019-07-19 10:45:00Unknown Test [...] UnknownAutomated erythrocyte mean corpuscular hemoglobin concentration measurement (mass/pxn7945-52-24 10:45:00Identifier 786-4 Result Time 2019-07-19 10:45:00Unknown Test Item Value Reference Range Comments Automated erythrocyte mean corpuscular 33 g/dL Unknown Unknown F hemoglobin concentration measurement (mass/vol (test code = 786-4) Ordering Physician UnknownAutomated erythrocyte mean corpuscular nlwppw5600-32- 30 10:45:00Identifier 787-2 Result Time 2019-07-19 10:45:00Unknown Test Item Value Reference Range Comments Automated erythrocyte mean corpuscular volume 91 fL Unknown Unknown F (test code = 787-2) Ordering Physician UnknownAutomated erythrocyte distribution width jtmej2401-64- 30 10:45:00Identifier 788-0 Result Time 2019-07-19 10:45:00Unknown [...] code = 789-8) Ordering Physician UnknownLymphocyte proliferation [id number] 10:45: 00Identifier YRI5971 Result Time 2019-07-19 10:45:00Unknown Test Item Value Reference Range Comments Lymphocyte proliferation test (test 7.1 10^3/ul Unknown Unknown F code = WTH0452) Ordering Physician UnknownUrine urobilinogen measurement (units/volume) by test yjlnt1332-00-04 12:30:00Identifier 14882-4 Result Time 2019-07-17 12:30: 00Unknown Test Item Value Reference Range Comments Urine urobilinogen measurement Negative Unknown Unknown F (units/volume) by test strip (test code = 91244-6) Ordering Physician UnknownUrine bacteria detection by automated zqkrob4307-58- 28 12:30:00Identifier 22465-5 Result Time 2019-07-17 12:30:00Unknown Test Item Value Reference Range Comments Urine bacteria detection by automated Absent Unknown Unknown F method (test code = 71989-3) Ordering Physician UnknownUrine total bilirubin detection by automated test ndnlm2665-39-21 12:30:00Identifier 52432-2 Result Time 2019-07-17 12:30: 00Unknown Test Item Value Reference Range Comments Urine total bilirubin detection by Negative Unknown Unknown F automated test strip (test code = 27108-1) Ordering Physician UnknownUrine clarity by refractometry iqunaykrs8594-57-29 12: 30:00Identifier 20649-0 Result Time 2019-07-17 12:30:00Unknown Test Item Value Reference Range Comments Urine clarity by refractometry automated Cloudy Unknown Unknown F (test code = 46270-8) Ordering Physician UnknownColor of Urine by Rits8517-66-21 12:30:00Identifier 45813-4 Result Time 2019-07-17 12:30:00Unknown Test Item Value Reference Range Comments Color of Urine by Auto (test code = Yellow Unknown Unknown F 87576-2) Ordering Physician UnknownUrine glucose detection by automated test knbqx5696-94 -28 12:30:00Identifier 16992-3 Result Time 2019-07-17 12:30:00Unknown Test Item Value Reference Range Comments Urine glucose detection by automated test Negative Unknown Unknown F strip (test code = 08329-1) Ordering Physician UnknownKetones [Mass/volume] in Urine by Automated test cllja8445-15-58 12:30:00Identifier 65946-9 Result Time 2019-07-17 12:30: 00Unknown Test Item Value Reference Range Comments Ketones [Mass/volume] in Urine by Negative Unknown Unknown F Automated test strip (test code = 60639-2) Ordering Physician UnknownUrine nitrite detection by automated test [id number] -28 12:30:00Identifier 87934-8 Result Time 2019-07-17 12:30:00Unknown Test Item Value Reference Range Comments Urine nitrite detection by automated test Positive Unknown Unknown F strip (test code = 26430-7) Ordering Physician UnknownProtein [Mass/volume] in Urine by Automated test [id number] 12:30:00Identifier 66206-6 Result Time 2019-07-17 12:30: 00Unknown Test Item Value Reference Range Comments Protein [Mass/volume] in Urine by Negative Unknown Unknown F Automated test strip (test code = 44829-3) Ordering Physician UnknownSpecific gravity of Urine by Refractometry [id number] 12:30:00Identifier 09304-6 Result Time 2019-07-17 12:30: 00Unknown Test Item Value Reference Range Comments Specific gravity of Urine by Refractometry 1.009 Unknown Unknown F automated (test code = 16697-2) Ordering Physician UnknownUrine erythrocytes detection by automated [id number] 12:30:00Identifier 17216-2 Result Time 2019-07-17 12:30:00Unknown Test Item Value Reference Range Comments Urine erythrocytes detection by 3+(>10/hpf) Unknown Unknown F automated method (test code = 84817-5) Ordering Physician UnknownUrine leukocytes detection by automated agdwcr2224-03- 28 12:30:00Identifier 04216-0 Result Time 2019-07-17 12:30:00Unknown Test Item Value Reference Range Comments Urine leukocytes detection by 3+(>20/hpf) Unknown Unknown F automated method (test code = 07722-6) Ordering Physician UnknownUrine hemoglobin detection by test agxut0892-58-73 12: 30:00Identifier 5794-3 Result Time 2019-07-17 12:30:00Unknown Test Item Value Reference Range Comments Urine hemoglobin detection by test strip (test 3+ Unknown Unknown F code = 5794-3) Ordering Physician UnknownUrine leukocyte esterase detection by automated test fvbqn7734-01-38 12:30:00Identifier 75519-1 Result Time 2019-07-17 12:30: 00Unknown Test Item Value Reference Range Comments Urine leukocyte esterase detection by automated 3+ Unknown Unknown F test strip (test code = 96071-9) Ordering Physician UnknownSerum or plasma vitamin B12 [...] plasma troponin i.cardiac measurement (mass/ volume)2019-07-16 21:08:00Identifier 87178-6 Result Time 2019-07-16 21:08: 00Unknown Test Item Value Reference Range Comments Serum or plasma troponin i.cardiac 0.37 ng/mL Unknown Unknown F measurement (mass/volume) (test code = 67260-0) Ordering Physician UnknownSerum or plasma alanine aminotransferase measurement ( enzymatic activity/volume)2019-07-16 14:12:00Identifier 1742-6 Result Time 07-15 14:12:00Unknown Test Item Value Reference Range Comments Serum or plasma alanine aminotransferase 6 U/L Unknown Unknown F measurement (enzymatic activity/volume) (test code = 1742-6) Ordering Physician UnknownSerum or plasma albumin/globulin mass [id number] 14:12:00Identifier 1759-0 Result Time 2019-07-16 14:12:00Unknown Test [...] Ordering Physician UnknownBilirubin.indirect [Mass/volume] in Serum or Njslst0656-71-03 14:12:00Identifier 1970-04 Result Time 2019-07-16 14:12: 00Unknown [...] (test code = 1974-05) Ordering Physician UnknownPCO2 rpgonp1210-56-15 14:12:00Identifier 2020-07 Result Time 2019-07-16 14:12:00Unknown Test Item Value Reference Range Comments PCO2 venous (test code = 2020-07) 45 mmHg Unknown Unknown F Ordering Physician UnknownSerum or plasma high density lipoprotein (HDL) cholesterol ltmnghknzok0048-21-18 14:12:00Identifier 2084-12 Result Time 14:12:00Unknown Test Item [...] (test code = 2571-8) Ordering Physician UnknownPO2 rmnlkj4118-20-45 14:12:00Identifier 2705-2 Result Time 2019-07-16 14:12:00Unknown Test Item Value Reference Range Comments PO2 venous (test code = 2705-2) 39.0 mmHg Unknown Unknown F Ordering Physician UnknownVenous blood pH [id number] 14:12: 00Identifier 2746-6 Result Time 2019-07-16 14:12:00Unknown [...] natriuretic peptide B measurement ( mass/volume)2019-07-16 14:12:00Identifier 61680-2 Result Time 2019-07-16 14:12: 00Unknown Test Item Value Reference Range Comments Serum or plasma natriuretic peptide B 849 pg/mL Unknown Unknown F measurement (mass/volume) (test code = 99927-0) Ordering Physician UnknownVenous blood oxygen saturation calculated from oxygen partial [id number] 14:12:00Identifier 62374-7 Result Time 2019-07-16 14: 12:00Unknown Test Item Value Reference Range Comments Venous blood oxygen saturation calculated 66.2 % Unknown Unknown F from oxygen partial pressure (test code = 70428-9) Ordering Physician UnknownSerum or plasma albumin measurement by bromocresol green (BCG) dye binding method ([id number] 14:12:00Identifier 04170-8 Result Time 2019-07-16 14:12:00Unknown Test Item Value Reference Range Comments Serum or plasma albumin measurement by 3.7 g/dL Unknown Unknown F bromocresol green (BCG) dye binding method (ma (test code = 24106-3) Ordering Physician UnknownSerum or plasma alkaline phosphatase measurement ( enzymatic activity/volume)2019-07-16 14:12:00Identifier 6768-6 Result Time 07-15 14:12:00Unknown Test Item Value Reference Range Comments Serum or plasma alkaline phosphatase 69 U/L Unknown Unknown F measurement (enzymatic activity/volume) (test code = 6768-6) Ordering Physician UnknownInfluenza virus A RNA detection by probe and target amplification [id number] 13:18:00Identifier 81364-6 Result Time 13:18:00Unknown Test Item Value Reference Range Comments Influenza virus A RNA detection by probe Negative Unknown Unknown F and target amplification method (test code = 88483-1) Ordering Physician UnknownInfluenza virus B RNA detection by probe and target amplification [id number] 13:18:00Identifier 12419-8 Result Time 13:18:00Unknown Test Item Value Reference Range Comments Influenza virus B RNA detection by probe Negative Unknown Unknown F and target amplification method (test code = 73535-7) Ordering Physician Unknown
--- OUTSIDE RECORDS SUMMARY | 2019-08-06 13:52 | XMS REPORT ---
:1945 Author Organization [facility] Care Team Providers Name Role Phone Unavailable Unavailable Unavailable Problems Condition Condition Condition Status Onset Resolution Last Treating Comments Name Details Category Date Date Treatment Clinician Date Heart Heart Diagnosis Active Shreya failure, failure, 3-30 Ethan unspecified unspecified [id number] Allergies, Adverse Reactions, Alerts Allergy Allergy Status Severity Reaction(s) Onset Inactive Treating Comments Name Type Date Date Clinician tomato Unknown Active Unknown Reaction 2019-06 Interface -30 Medications Ordered Filled Start Stop Current Ordering Indication Dosage Frequency Signature Comments Components Medication Medication Date Date Medication? Clinician (SIG) Name Name omeprazole omeprazole No Unknown Unknown Unknown ER 20 mg ER 20 mg -03 capsule,ext capsule,ext ended ended release release alendronate alendronate 2016-04 No Unknown Unknown Unknown 70 mg 70 mg 1-09 tablet tablet montelukast montelukast 2018-04 No Unknown Unknown Unknown 10 mg 10 mg 1-05 tablet tablet citalopram citalopram 2018-04 No Unknown Unknown Unknown 20 mg 20 mg 1-05 tablet tablet ferrous ferrous 2018-04 No Unknown Unknown Unknown sulfate 325 sulfate 325 1-05 mg (65 mg mg (65 mg iron) iron) tablet tablet cyanocobala cyanocobala 2018-04 No Unknown Unknown Unknown min (vit min (vit 1-05 B-12) 500 B-12) 500 mcg tablet mcg tablet Apixaban* Apixaban* 2018-04 No Unknown Unknown Unknown 1-05 furosemide furosemide 2018-04 No Unknown Unknown Unknown 40 mg 40 mg 1-15 tablet tablet Magnesium Magnesium 2018-04 No Unknown Unknown Unknown Oxide Tab* Oxide Tab* 1-15 cholestyram cholestyram 2018-04 No Unknown Unknown Unknown ine (with ine (with 1-22 sugar) oral sugar) oral powder powder metoprolol metoprolol Yes Unknown Unknown Unknown tartrate 50 tartrate 50 1-10 mg tablet mg tablet polyethylen polyethylen 2019-0 Yes Unknown Unknown Unknown e glycol e glycol 1-10 3350 17 3350 17 gram oral gram oral powder powder packet packet ipratropium ipratropium 2019-0 Yes Unknown Unknown Unknown 0.5 0.5 1-10 mg-albutero mg-albutero L 3 mg (2.5 L 3 mg (2.5 mg base)/3 mg base)/3 mL mL nebulizatio nebulizatio n soln n soln Umeclidin/V Umeclidin/V 2019-0 Yes Unknown Unknown Unknown ilant 62.5 ilant 62.5 1-10 Mdi(Nf) Mdi(Nf) nicotine 7 nicotine 7 2019- Yes Unknown Unknown Unknown mg/24hr TD mg/24hr TD 07-15 tdsy tdsy citalopram citalopram 2019- Yes Unknown Unknown Unknown 10 mg 10 mg 07-15 tablet tablet metOLazone metOLazone 2019-0 Yes Unknown Unknown Unknown 5 mg tablet 5 mg tablet 07-15 Albuterol Albuterol 2019-0 Yes Unknown Unknown Unknown Hfa Hfa 07-15 Inhaler* Inhaler* Acetaminoph Acetaminoph 2019- Yes Unknown Unknown Unknown en en 07-15 Vital Signs Vital Name Observation Time Observation Value Comments SYSTOLIC mm[Hg] 2019-07-19 18:11:08 106 mm[Hg] mm[Hg] Method: Sit DIASTOLIC mm[Hg] 2019-07-19 18:11:08 49 mm[Hg] mm[Hg] Method: Sit PULSE 2019-07-19 18:11:08 61 /min /min RESP RATE 2019-07-19 18:11:08 20 /min /min TEMP 2019-07-19 18:11:08 97.6 [degF] Procedures This patient has no known procedures. Results Test Description Test Time Test Comments Text Results Atomic Results Result Comments Serum or plasma calcium 2019-07-19 10:45:00 Identifier 55796-1 Result Unknown measurement (mass/volume) Time 2019-07-19 10:45:00 Test Item Value Reference Range Comments Serum or plasma calcium measurement (mass/volume) (test 10.0 mg/dL Unknown Unknown F code = 30958-4) Ordering Physician UnknownSerum or plasma magnesium measurement (mass/volume) 2019-07-19 10:45:00Identifier 40474-9 Result Time 2019-07-19 10:45:00Unknown Test Item Value Reference Range Comments Serum or plasma magnesium measurement 1.9 mg/dL Unknown Unknown F (mass/volume) (test code = 62426-6) Ordering Physician UnknownSerum or plasma carbon dioxide, total measurement ( moles/volume)2019-07-19 10:45:00Identifier 2027- Result Time 2019-07-19 10:45: 00Unknown Test Item Value Reference Range Comments Serum or plasma carbon dioxide, total 35 mmol/L Unknown Unknown F measurement (moles/volume) (test code = 2027-9) Ordering Physician UnknownSerum or plasma chloride measurement [...] Ordering Physician UnknownSerum or plasma urea nitrogen/creatinine imahy1527-57- 30 10:45:00Identifier 3097-3 Result Time 2019-07-19 10:45:00Unknown Test Item Value Reference Range Comments Serum or plasma urea nitrogen/creatinine 30.7 Unknown Unknown F ratio (test code = 3097-3) Ordering Physician UnknownAutomated blood platelet mean volume ncsjtvxdxyd1307- 03-30 10:45:00Identifier 97214-9 Result Time 2019-07-19 10:45:00Unknown Test Item Value Reference Range Comments Automated blood platelet mean volume 7.4 fL Unknown Unknown F measurement (test code = 83082-9) Ordering Physician UnknownSerum or plasma anion [id number] 10:45: 00Identifier 81644-2 Result Time 2019-07-19 10:45:00Unknown Test Item Value Reference Range Comments Serum or plasma anion gap (test code = 10 mmol/L Unknown Unknown F 16252-6) Ordering Physician UnknownAutomated blood leukocytes count corrected for nucleated erythrocytes (number/volume)2019-07-19 10:45:00Identifier 69198-3 Result Time 2019-07-19 10:45:00Unknown Test Item Value Reference Range Comments Automated blood leukocytes count 7.9 10^3/uL Unknown Unknown F corrected for nucleated erythrocytes (number/volume) (test code = 62046-7) Ordering Physician UnknownAutomated blood nucleated erythrocytes bcyhvgzfa2413- 03-30 10:45:00Identifier 93862-8 Result Time 2019-07-19 10:45:00Unknown Test Item Value Reference Range Comments Automated blood nucleated erythrocytes 0.1 Unknown Unknown F detection (test code = 88424-6) Ordering Physician UnknownAutomated blood hematocrit (percentage)2019-07-19 10: 45:00Identifier 4544-3 Result Time 2019-07-19 10:45:00Unknown Test Item Value Reference Range Comments Automated blood hematocrit (percentage) (test 33 % Unknown Unknown F code = 4544-3) Ordering Physician UnknownEstimated glomerular filtration rate (GFR) non- Lckbyynr6983-56-83 10:45:00Identifier 80856-6 Result Time 2019-07-19 10: 45:00Unknown Test Item Value Reference Range Comments Estimated glomerular filtration rate (GFR) 41.2 Unknown Unknown F non- (test code = 25483-7) Ordering Physician UnknownAutomated blood monocytes/100 nntflctmxh6804-26-81 10: 45:00Identifier 5905-5 Result Time 2019-07-19 10:45:00Unknown [...] = 704-7) Ordering Physician UnknownAutomated blood basophils/100 ohbrlokwsb6958-21-40 10: 45:00Identifier 706-2 Result Time 2019-07-19 10:45:00Unknown [...] = 711-2) Ordering Physician UnknownAutomated blood eosinophils/100 operbidkys1826-61-04 10:45:00Identifier 713-8 Result Time 2019-07-19 10:45:00Unknown Test [...] = 731-0) Ordering Physician UnknownAutomated blood lymphocytes/100 vbiiikhzkf4717-13-10 10:45:00Identifier 736-9 Result Time 2019-07-19 10:45:00Unknown Test Item Value Reference Range Comments Automated blood lymphocytes/100 leukocytes 3.0 % Unknown Unknown F (test code = 736-9) Ordering Physician UnknownBlood monocytes automated count (number/volume)2019-06 10:45:00Identifier 742-7 Result Time 2019-07-19 10:45:00Unknown Test Item Value Reference Range Comments Blood monocytes automated count 0.4 10^3/ul Unknown Unknown F (number/volume) (test code = 742-7) Ordering Physician UnknownAutomated blood neutrophils/100 ikxvylcknj9620-42-44 10:45:00Identifier 770-8 Result Time 2019-07-19 10:45:00Unknown Test [...] UnknownAutomated erythrocyte mean corpuscular hemoglobin concentration measurement (mass/vff6715-92-74 10:45:00Identifier 786-4 Result Time 2019-07-19 10:45:00Unknown Test Item Value Reference Range Comments Automated erythrocyte mean corpuscular 33 g/dL Unknown Unknown F hemoglobin concentration measurement (mass/vol (test code = 786-4) Ordering Physician UnknownAutomated erythrocyte mean corpuscular onbxnw1450-78- 30 10:45:00Identifier 787-2 Result Time 2019-07-19 10:45:00Unknown Test Item Value Reference Range Comments Automated erythrocyte mean corpuscular volume 91 fL Unknown Unknown F (test code = 787-2) Ordering Physician UnknownAutomated erythrocyte distribution width rwwrl3387-80- 30 10:45:00Identifier 788-0 Result Time 2019-07-19 10:45:00Unknown [...] code = 789-8) Ordering Physician UnknownLymphocyte proliferation ctpd1800-19-55 10:45: 00Identifier [id number] Result Time 2019-07-19 10:45:00Unknown Test Item Value Reference Range Comments Lymphocyte proliferation test (test 7.1 10^3/ul Unknown Unknown F code = HPT1003) Ordering Physician UnknownUrine urobilinogen measurement (units/volume) by test qfybx3582-37-18 12:30:00Identifier 03527-4 Result Time 2019-07-17 12:30: 00Unknown Test Item Value Reference Range Comments Urine urobilinogen measurement Negative Unknown Unknown F (units/volume) by test strip (test code = 56017-6) Ordering Physician UnknownUrine bacteria detection by automated yipcji9034-21- 28 12:30:00Identifier 64472-7 Result Time 2019-07-17 12:30:00Unknown Test Item Value Reference Range Comments Urine bacteria detection by automated Absent Unknown Unknown F method (test code = 15421-3) Ordering Physician UnknownUrine total bilirubin detection by automated test fbase2384-00-44 12:30:00Identifier 58990-6 Result Time 2019-07-17 12:30: 00Unknown Test Item Value Reference Range Comments Urine total bilirubin detection by Negative Unknown Unknown F automated test strip (test code = 52578-8) Ordering Physician UnknownUrine clarity by refractometry inmioapaa4491-31-85 12: 30:00Identifier 99929-2 Result Time 2019-07-17 12:30:00Unknown Test Item Value Reference Range Comments Urine clarity by refractometry automated Cloudy Unknown Unknown F (test code = 73257-2) Ordering Physician UnknownColor of Urine by Jqrn0555-57-53 12:30:00Identifier 66237-9 Result Time 2019-07-17 12:30:00Unknown Test Item Value Reference Range Comments Color of Urine by Auto (test code = Yellow Unknown Unknown F 28066-1) Ordering Physician UnknownUrine glucose detection by automated test diwvx8230-03 -28 12:30:00Identifier 56898-1 Result Time 2019-07-17 12:30:00Unknown Test Item Value Reference Range Comments Urine glucose detection by automated test Negative Unknown Unknown F strip (test code = 57353-3) Ordering Physician UnknownKetones [Mass/volume] in Urine by Automated test tajiv6122-91-85 12:30:00Identifier 76391-2 Result Time 2019-07-17 12:30: 00Unknown Test Item Value Reference Range Comments Ketones [Mass/volume] in Urine by Negative Unknown Unknown F Automated test strip (test code = 79949-9) Ordering Physician UnknownUrine nitrite detection by automated test jzfiw1965-62 -28 12:30:00Identifier 92234-7 Result Time 2019-07-17 12:30:00Unknown Test Item Value Reference Range Comments Urine nitrite detection by automated test Positive Unknown Unknown F strip (test code = 08799-8) Ordering Physician UnknownProtein [Mass/volume] in Urine by Automated test rdide2678-15-19 12:30:00Identifier 58665-1 Result Time 2019-07-17 12:30: 00Unknown Test Item Value Reference Range Comments Protein [Mass/volume] in Urine by Negative Unknown Unknown F Automated test strip (test code = 53584-2) Ordering Physician UnknownSpecific gravity of Urine by Refractometry rtrzrslph5436-29-62 12:30:00Identifier 33091-8 Result Time 2019-07-17 12:30: 00Unknown Test Item Value Reference Range Comments Specific gravity of Urine by Refractometry 1.009 Unknown Unknown F automated (test code = 53276-2) Ordering Physician UnknownUrine erythrocytes detection by automated vxuenl895307-16 12:30:00Identifier 71531-9 Result Time 2019-07-17 12:30:00Unknown Test Item Value Reference Range Comments Urine erythrocytes detection by 3+(>10/hpf) Unknown Unknown F automated method (test code = 32651-4) Ordering Physician UnknownUrine leukocytes detection by automated wtzowb5290-38- 28 12:30:00Identifier 07203-9 Result Time 2019-07-17 12:30:00Unknown Test Item Value Reference Range Comments Urine leukocytes detection by 3+(>20/hpf) Unknown Unknown F automated method (test code = 79855-6) Ordering Physician UnknownUrine hemoglobin detection by test qabfq6627-09-63 12: 30:00Identifier 5794-3 Result Time 2019-07-17 12:30:00Unknown Test Item Value Reference Range Comments Urine hemoglobin detection by test strip (test 3+ Unknown Unknown F code = 5794-3) Ordering Physician UnknownUrine leukocyte esterase detection by automated test zueoi4886-78-59 12:30:00Identifier 89598-5 Result Time 2019-07-17 12:30: 00Unknown Test Item Value Reference Range Comments Urine leukocyte esterase detection by automated 3+ Unknown Unknown F test strip (test code = 58785-0) Ordering Physician UnknownSerum or plasma vitamin B12 [...] plasma troponin i.cardiac measurement (mass/ volume)2019-07-16 21:08:00Identifier 68293-2 Result Time 2019-07-16 21:08: 00Unknown Test Item Value Reference Range Comments Serum or plasma troponin i.cardiac 0.37 ng/mL Unknown Unknown F measurement (mass/volume) (test code = 76538-8) Ordering Physician UnknownSerum or plasma alanine aminotransferase measurement ( enzymatic activity/volume)2019-07-16 14:12:00Identifier 1742-6 Result Time 07-15 14:12:00Unknown Test Item Value Reference Range Comments Serum or plasma alanine aminotransferase 6 U/L Unknown Unknown F measurement (enzymatic activity/volume) (test code = 1742-6) Ordering Physician UnknownSerum or plasma albumin/globulin mass jxngn0798-51-63 14:12:00Identifier 1759-0 Result Time 2019-07-16 14:12:00Unknown Test Item Value Reference Range Comments Serum or plasma albumin/globulin mass ratio 1.0 Unknown Unknown F (test code = 1759-0) Ordering Physician UnknownSerum or plasma aspartate aminotransferase measurement (enzymatic activity/volume)2019-07-16 14:12:00Identifier 1920-8 Result Time 2019-07-16 14:12:00Unknown Test Item Value Reference Range Comments Serum or plasma aspartate aminotransferase 9 U/L Unknown Unknown F measurement (enzymatic activity/volume) (test code = 1920-8) Ordering Physician UnknownSerum or plasma direct bilirubin measurement (mass/ volume)2019-07-16 14:12:00Identifier 1967-10 Result Time 2019-07-16 14:12: 00Unknown Test Item Value Reference Range Comments Serum or plasma direct bilirubin 0.70 mg/dL Unknown Unknown F measurement (mass/volume) (test code = 1967-10) Ordering Physician UnknownBilirubin.indirect [Mass/volume] in Serum or Fjvivm2045-62-32 14:12:00Identifier 1970-04 Result Time 2019-07-16 14:12: 00Unknown [...] (test code = 1974-05) Ordering Physician UnknownPCO2 wocwil1826-43-27 14:12:00Identifier 2020-07 Result Time 2019-07-16 14:12:00Unknown Test Item Value Reference Range Comments PCO2 venous (test code = 2020-07) 45 mmHg Unknown Unknown F Ordering Physician UnknownSerum or plasma high density lipoprotein (HDL) cholesterol wazrwpkqcqn3765-62-38 14:12:00Identifier 2084-12 Result Time 14:12:00Unknown Test Item Value Reference Range Comments Serum or plasma high density lipoprotein 26.2 mg/dL Unknown Unknown F (HDL) cholesterol measurement (test code = 2084-12) Ordering Physician UnknownSerum or plasma low density lipoprotein (LDL) cholesterol measurement (mass/volume)2019-07-16 14:12:00Identifier 2088-04 Result Time 2019-07-16 14:12:00Unknown Test Item Value [...] Unknown Unknown F (mass/volume) (test code = 2092-3) Ordering Physician UnknownSerum or plasma triglyceride measurement (mass/volume) 2019-07-16 14:12:00Identifier 1-8 Result Time 2019-07-16 14:12:00Unknown Test Item Value Reference Range Comments Serum or plasma triglyceride measurement 77 mg/dL Unknown Unknown F (mass/volume) (test code = 2571-8) Ordering Physician UnknownPO2 emomqi2856-12-19 14:12:00Identifier 2704-2 Result Time 2019-07-16 14:12:00Unknown Test Item Value Reference Range Comments PO2 venous (test code = 2705-2) 39.0 mmHg Unknown Unknown F Ordering Physician UnknownVenous blood pH cfczipvajqj2680-48-35 14:12: 00Identifier 2746-6 Result Time 2019-07-16 14:12:00Unknown [...] natriuretic peptide B measurement ( mass/volume)2019-07-16 14:12:00Identifier 07613-8 Result Time 2019-07-16 14:12: 00Unknown Test Item Value Reference Range Comments Serum or plasma natriuretic peptide B 849 pg/mL Unknown Unknown F measurement (mass/volume) (test code = 84917-1) Ordering Physician UnknownVenous blood oxygen saturation calculated from oxygen partial iflkxujj2638-96-33 14:12:00Identifier 49971-4 Result Time 2019-07-16 14: 12:00Unknown Test Item Value Reference Range Comments Venous blood oxygen saturation calculated 66.2 % Unknown Unknown F from oxygen partial pressure (test code = 85322-7) Ordering Physician UnknownSerum or plasma albumin measurement by bromocresol green (BCG) dye binding method (rj2662-21-11 14:12:00Identifier 43618-6 Result Time 2019-07-16 14:12:00Unknown Test Item Value Reference Range Comments Serum or plasma albumin measurement by 3.7 g/dL Unknown Unknown F bromocresol green (BCG) dye binding method (ma (test code = 95118-7) Ordering Physician UnknownSerum or plasma alkaline phosphatase measurement ( enzymatic activity/volume)2019-07-16 14:12:00Identifier 6768-6 Result Time 07-15 14:12:00Unknown Test Item Value Reference Range Comments Serum or plasma alkaline phosphatase 69 U/L Unknown Unknown F measurement (enzymatic activity/volume) (test code = 6768-6) Ordering Physician UnknownInfluenza virus A RNA detection by probe and target amplification trjkpy8120-45-67 13:18:00Identifier 22072-1 Result Time 13:18:00Unknown Test Item Value Reference Range Comments Influenza virus A RNA detection by probe Negative Unknown Unknown F and target amplification method (test code = 92161-2) Ordering Physician UnknownInfluenza virus B RNA detection by probe and target amplification gesdwa3996-03-73 13:18:00Identifier 64829-8 Result Time 13:18:00Unknown Test Item Value Reference Range Comments Influenza virus B RNA detection by probe Negative Unknown Unknown F and target amplification method (test code = 32504-7) Ordering Physician Unknown
--- OUTSIDE RECORDS SUMMARY | 2019-08-06 13:52 | XMS REPORT ---
:1945 Author Organization [facility] Care Team Providers Name Role Phone Unavailable Unavailable Unavailable Problems Condition Condition Condition Status Onset Resolution Last Treating Comments Name Details Category Date Date Treatment Clinician Date Hypertensiv Hypertensiv Diagnosis Active 2018-04 Shreya e heart and e heart and 05-12 Ethan chronic chronic [id number] kidney kidney disease disease with heart with heart failure and failure and stage 1 stage 1 through through stage 4 stage 4 chronic chronic kidney kidney disease, or disease, or unspecified unspecified chronic chronic kidney kidney disease disease Heart Heart Diagnosis Active 2018-04 Shreya failure, failure, 05-12 Ethan unspecified unspecified [id number] Type 2 Type 2 Diagnosis Active 2018-04 Shreya diabetes diabetes 05-12 Ethan mellitus mellitus [id number] with with diabetic diabetic chronic chronic kidney kidney disease disease Chronic Chronic Diagnosis Active 2018-04 Shreya kidney kidney 05-12 Ethan disease, disease, [id number] unspecified unspecified Unspecified Unspecified Diagnosis Active 2018-04 Shreya atrial atrial 05-12 Ethan fibrillatio fibrillatio [id number] n n Chronic Chronic Diagnosis Active 2018-04 Shreya obstructive obstructive 05-12 Ethan pulmonary pulmonary [id number] disease, disease, unspecified unspecified 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 Active Shreya chronic chronic Ethan kidney kidney [id number] disease disease Obstructive Obstructive Diagnosis Active Shreya sleep apnea sleep apnea Ethan (adult) (adult) [id number] (pediatric) (pediatric) Acute and Acute and Diagnosis Active Shreya chronic chronic Ethan respiratory respiratory [id number] failure failure with with hypoxia hypoxia Lymphedema, Lymphedema, Diagnosis Active Shreya not not Tehan elsewhere elsewhere [id number] classified classified Retention Retention Diagnosis Active Shreya of urine, of urine, Ethan unspecified unspecified 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 without without [id number] dysplasia dysplasia Gastro-esop Gastro-esop Diagnosis Active Shreya hageal hageal Ethan reflux reflux [id number] disease disease without without esophagitis esophagitis Unspecified Unspecified Diagnosis Active Shreya osteoarthri osteoarthri Ethan tis, tis, [id number] unspecified unspecified site site Unspecified Unspecified Diagnosis Active Shreya cataract cataract Ethan [id number] Major Major Diagnosis Active Shreya depressive depressive Ethan disorder, disorder, [id number] single single episode, episode, unspecified unspecified Age-related Age-related Diagnosis Active Shreya osteoporosi osteoporosi Ethan s without s without [id number] current current pathologica pathologica l fracture l fracture Dependence Dependence Diagnosis Active Shreya on on Ethan supplementa supplementa [id number] l oxygen l oxygen MCFP MCFP Diagnosis Active Shreya (current) (current) Ethan use of use of [id number] anticoagula anticoagula nts nts Personal Personal Diagnosis Active Shreya history of history of Ethan transient transient [id number] ischemic ischemic attack attack (TIA), and (TIA), and cerebral cerebral infarction infarction without without residual residual deficits deficits 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 al fluid [id number] drainage drainage device device Personal Personal Diagnosis Active Shreya history of history of Ethan nicotine nicotine [id number] dependence dependence Encounter Encounter Diagnosis Active Shreya for fitting for fitting Ethan and and [id number] adjustment adjustment of urinary of urinary device device Personal Personal Diagnosis Active Shreya history of history of Ethan urinary urinary [id number] (tract) (tract) infections infections Other long Other long Diagnosis Active Shreya term term Ethan (current) (current) [id number] drug drug therapy therapy Pain frequent Pain Mgmt Active 2019-0 Kaila pain 07-20 [place] 11:30: [id number] 00 Respiratory dyspnea Respirator Active 2019-0 Kaila present y 07-20 [place] 11:30: [id number] 00 Respiratory oxygen Respirator Active 2019-0 Kaila treatments y 07-20 [place] in home 11:30: [id number] 00 Respiratory smoker Respirator Active 2020-0 Kaila y 07-20 [place] 11:30: [id number] 00 Endo/Ernie diabetic Endo/Ernie Active 2020-0 Kaila foot care 07-20 [place] 11:30: [id number] 00 Endo/Ernie anti-coagul Endo/Ernie Active 2020-0 Kaila ation 07-20 [place] therapy 11:30: [id number] 00 Sensory impaired Sensory Active 2020-0 Kaila hearing 07-20 [place] 11:30: [id number] 00 Nutrition nutritional Nutrition Active 2020-0 Kaila restriction 07-20 [place] s 11:30: [id number] 00 Elimination recurring Eliminatio Active 2020-0 Kaila UTI n 07-20 [place] 11:30: [id number] 00 Elimination UTI within Eliminatio Active 2020-0 Kaila past 14 n 07-20 [place] days 11:30: [id number] 00 Elimination catheter Eliminatio Active 2020-0 Kaila present n 07-20 [place] 11:30: [id number] 00 Neuro confusion Neuro/Emot Active 2020-0 Kaila present ion 07-20 [place] 11:30: [id number] 00 Neuro impaired Neuro/Emot Active 2020-0 Kaila decision-ma ion 07-20 [place] juan manuel 11:30: [id number] 00 Neuro memory Neuro/Emot Active 2020-0 Kaila deficit ion 07-20 [place] needing 11:30: [id number] supervision 00 Activity ADL Activity Active 2020-0 Kaila assistance 07-20 [place] required 11:30: [id number] 00 Activity self-care Activity Active 2020-0 Kaila deficit 07-20 [place] 11:30: [id number] 00 Safety structural Safety Active 2020-0 Kaila barriers 07-20 [place] present 11:30: [id number] 00 Safety sanitation Safety Active 2020-0 Kaila hazards 07-20 [place] present 11:30: [id number] 00 Safety cannot be Safety Active 2020-0 Kaila left alone 07-20 [place] 11:30: [id number] 00 Safety fall risk Safety Active 2020-0 Kaila factor 07-20 [place] present 11:30: [id number] 00 Safety risk for Safety Active 2020-0 Kaila hospitaliza 07-20 [place] tion 11:30: [id number] 00 Medication oral med Meds Active 2020-0 Kaila assistance 07-20 [place] required 11:30: [id number] 00 Medication knowledge/s Meds Active 2020-0 Kaila kill 07-20 [place] deficit: pt 11:30: [id number] 00 Medication knowledge/s Meds Active 2020-0 Kaila kill 07-20 [place] deficit: cg 11:30: [id number] 00 Musculoskel transfer Musculoske Active 2020-0 Kaila etal assistance letal 07-20 [place] required 11:30: [id number] 00 Musculoskel requires Musculoske Active 2020-0 Kaila etal human letal 07-20 [place] assist to 11:30: [id number] leave home 00 Cath/Ostomy k/s Cath\Ostom Active 2020-0 Kaila /GI deficit: y\GI Care 07-20 [place] cath/ost/GI 11:30: [id number] care - pt 00 Cath/Ostomy k/s Cath\Ostom Active 2020-0 Kaila /GI deficit: y\GI Care 07-20 [place] cath/ost/GI 11:30: [id number] care - cg 00 Allergies, Adverse Reactions, Alerts Allergy Allergy Status Severity Reaction(s) Onset Inactive Treating Comments Name Type Date Date Clinician tomato Unknown Active Unknown Reaction 2019-06 Interface Medications Ordered Filled Start Stop Current Ordering Indication Dosage Frequency Signature Comments Components Medication Medication Date Date Medication? Clinician (SIG) Name Name omeprazole omeprazole Yes Breiman Unknown Unknown ER 20 mg ER 20 mg 07-20 Morgan CHAIDEZ capsule,ext capsule,ext ended ended release release alendronate alendronate Yes Breiman Unknown Unknown 70 mg 70 [...] mg iron) iron) tablet tablet cyanocobala cyanocobala Yes Breiman Unknown Unknown min (vit min (vit 07-20 Morgan CHAIDEZ B-12) 500 B-12) 500 mcg tablet mcg [...] CHAIDEZ tablet tablet Eliquis 5 Eliquis 5 2019- Yes Breiman Unknown Unknown mg tablet mg tablet 07-20 Morgan CHAIDEZ Anoro Anoro Yes Breiman Unknown Unknown Ellipta Ellipta 07-20 [...] Yes Breiman Unknown Unknown 07-20 Morgan CHAIDEZ Vital Signs Vital Name Observation Time Observation Value Comments SYSTOLIC mm[Hg] 2019-07-21 18:11:10 122 mm[Hg] mm[Hg] Method: Sit SYSTOLIC mm[Hg] 2019-07-21 18:11:10 120 mm[Hg] mm[Hg] Method: Stand DIASTOLIC mm[Hg] 2019-07-21 18:11:10 80 mm[Hg] mm[Hg] Method: Sit DIASTOLIC mm[Hg] 2019-07-21 18:11:10 80 mm[Hg] mm[Hg] Method: Stand PULSE 2019-07-21 18:11:10 74 /min /min RESP RATE 2019-07-21 18:11:10 18 /min /min TEMP 2019-07-21 18:11:10 98.6 [degF] Procedures This patient has no known procedures. Results Test Description Test Time Test Comments Text Results Atomic Results Result Comments Serum or plasma calcium 2019-07-19 10:45:00 Identifier 77499-2 Result Unknown measurement (mass/volume) Time 2019-07-19 10:45:00 Test Item Value Reference Range Comments Serum or plasma calcium measurement (mass/volume) (test 10.0 mg/dL Unknown Unknown F code = 06374-9) Ordering Physician UnknownSerum or plasma magnesium measurement (mass/volume) 2019-07-19 10:45:00Identifier 51000-1 Result Time 2019-07-19 10:45:00Unknown Test Item Value Reference Range Comments Serum or plasma magnesium measurement 1.9 mg/dL Unknown Unknown F (mass/volume) (test code = 68180-2) Ordering Physician UnknownSerum or plasma carbon dioxide, total measurement ( moles/volume)2019-07-19 10:45:00Identifier 2027-9 Result Time 2019-07-19 10:45: 00Unknown Test Item [...] or plasma creatinine measurement (mass/volume) 2019-07-19 10:45:00Identifier 0-0 Result Time 2019-07-19 10:45:00Unknown Test Item Value [...] Ordering Physician UnknownSerum or plasma urea nitrogen/creatinine mofva7173-76- 30 10:45:00Identifier 3097-3 Result Time 2019-07-19 10:45:00Unknown Test Item Value Reference Range Comments Serum or plasma urea nitrogen/creatinine 30.7 Unknown Unknown F ratio (test code = 3097-3) Ordering Physician UnknownAutomated blood platelet mean volume wkwpancpttk0962- 03-30 10:45:00Identifier 30098-0 Result Time 2019-07-19 10:45:00Unknown Test Item Value Reference Range Comments Automated blood platelet mean volume 7.4 fL Unknown Unknown F measurement (test code = 26570-6) Ordering Physician UnknownSerum or plasma anion [id number] 10:45: 00Identifier 70941-2 Result Time 2019-07-19 10:45:00Unknown Test Item Value Reference Range Comments Serum or plasma anion gap (test code = 10 mmol/L Unknown Unknown F 77518-5) Ordering Physician UnknownAutomated blood leukocytes count corrected for nucleated erythrocytes (number/volume)2019-07-19 10:45:00Identifier 16271-0 Result Time 2019-07-19 10:45:00Unknown Test Item Value Reference Range Comments Automated blood leukocytes count 7.9 10^3/uL Unknown Unknown F corrected for nucleated erythrocytes (number/volume) (test code = 22879-0) Ordering Physician UnknownAutomated blood nucleated erythrocytes xbwmqdkvb0734- 03-30 10:45:00Identifier 59965-2 Result Time 2019-07-19 10:45:00Unknown Test Item Value Reference Range Comments Automated blood nucleated erythrocytes 0.1 Unknown Unknown F detection (test code = 14970-0) Ordering Physician UnknownAutomated blood hematocrit (percentage)2019-07-19 10: 45:00Identifier 4544-3 Result Time 2019-07-19 10:45:00Unknown Test Item Value Reference Range Comments Automated blood hematocrit (percentage) (test 33 % Unknown Unknown F code = 4544-3) Ordering Physician UnknownEstimated glomerular filtration rate (GFR) non- Ecrycmhe8925-68-86 10:45:00Identifier 32604-0 Result Time 2019-07-19 10: 45:00Unknown Test Item Value Reference Range Comments Estimated glomerular filtration rate (GFR) 41.2 Unknown Unknown F non- (test code = 32128-1) Ordering Physician UnknownAutomated blood monocytes/100 oahnsbveqt5138-30-74 10: 45:00Identifier 5905-5 Result Time 2019-07-19 10:45:00Unknown [...] = 704-7) Ordering Physician UnknownAutomated blood basophils/100 byeglvgxnv0035-87-76 10: 45:00Identifier 706-2 Result Time 2019-07-19 10:45:00Unknown [...] = 711-2) Ordering Physician UnknownAutomated blood eosinophils/100 rgejtyntjj0825-18-58 10:45:00Identifier 713-8 Result Time 2019-07-19 10:45:00Unknown Test [...] = 731-0) Ordering Physician UnknownAutomated blood lymphocytes/100 twvimyacdw8370-88-73 10:45:00Identifier 736-9 Result Time 2019-07-19 10:45:00Unknown Test Item Value Reference Range Comments Automated blood lymphocytes/100 leukocytes 3.0 % Unknown Unknown F (test code = 736-9) Ordering Physician UnknownBlood monocytes automated count (number/volume)2019-06 10:45:00Identifier 742-7 Result Time 2019-07-19 10:45:00Unknown Test Item Value Reference Range Comments Blood monocytes automated count 0.4 10^3/ul Unknown Unknown F (number/volume) (test code = 742-7) Ordering Physician UnknownAutomated blood neutrophils/100 fprrkqvlvr1642-44-65 10:45:00Identifier 770-8 Result Time 2019-07-19 10:45:00Unknown Test [...] UnknownAutomated erythrocyte mean corpuscular hemoglobin concentration measurement (mass/pxk5097-69-01 10:45:00Identifier 786-4 Result Time 2019-07-19 10:45:00Unknown Test Item Value Reference Range Comments Automated erythrocyte mean corpuscular 33 g/dL Unknown Unknown F hemoglobin concentration measurement (mass/vol (test code = 786-4) Ordering Physician UnknownAutomated erythrocyte mean corpuscular cwjucx0623-75- 30 10:45:00Identifier 787-2 Result Time 2019-07-19 10:45:00Unknown Test Item Value Reference Range Comments Automated erythrocyte mean corpuscular volume 91 fL Unknown Unknown F (test code = 787-2) Ordering Physician UnknownAutomated erythrocyte distribution width buazk4435-87- 30 10:45:00Identifier 788-0 Result Time 2019-07-19 10:45:00Unknown [...] code = 789-8) Ordering Physician UnknownLymphocyte proliferation tiju9119-03-48 10:45: 00Identifier TSH2576 Result Time 2019-07-19 10:45:00Unknown Test Item Value Reference Range Comments Lymphocyte proliferation test (test 7.1 10^3/ul Unknown Unknown F code = AFS4154) Ordering Physician UnknownUrine urobilinogen measurement (units/volume) by test haafs8823-90-38 12:30:00Identifier 57538-3 Result Time 2019-07-17 12:30: 00Unknown Test Item Value Reference Range Comments Urine urobilinogen measurement Negative Unknown Unknown F (units/volume) by test strip (test code = 83116-5) Ordering Physician UnknownUrine bacteria detection by automated bbuomi8943-92- 28 12:30:00Identifier 37135-1 Result Time 2019-07-17 12:30:00Unknown Test Item Value Reference Range Comments Urine bacteria detection by automated Absent Unknown Unknown F method (test code = 61388-1) Ordering Physician UnknownUrine total bilirubin detection by automated test stkxx9932-20-44 12:30:00Identifier 03338-9 Result Time 2019-07-17 12:30: 00Unknown Test Item Value Reference Range Comments Urine total bilirubin detection by Negative Unknown Unknown F automated test strip (test code = 44588-5) Ordering Physician UnknownUrine clarity by refractometry dvuzycrkq3067-30-46 12: 30:00Identifier 10597-9 Result Time 2019-07-17 12:30:00Unknown Test Item Value Reference Range Comments Urine clarity by refractometry automated Cloudy Unknown Unknown F (test code = 43825-4) Ordering Physician UnknownColor of Urine by Foij4775-10-59 12:30:00Identifier 89010-3 Result Time 2019-07-17 12:30:00Unknown Test Item Value Reference Range Comments Color of Urine by Auto (test code = Yellow Unknown Unknown F 59876-9) Ordering Physician UnknownUrine glucose detection by automated test nxkoq1994-49 -28 12:30:00Identifier 95269-3 Result Time 2019-07-17 12:30:00Unknown Test Item Value Reference Range Comments Urine glucose detection by automated test Negative Unknown Unknown F strip (test code = 75103-2) Ordering Physician UnknownKetones [Mass/volume] in Urine by Automated test nsgbl3016-40-00 12:30:00Identifier 28592-1 Result Time 2019-07-17 12:30: 00Unknown Test Item Value Reference Range Comments Ketones [Mass/volume] in Urine by Negative Unknown Unknown F Automated test strip (test code = 33677-9) Ordering Physician UnknownUrine nitrite detection by automated test sdqkw3699-57 -28 12:30:00Identifier 83279-2 Result Time 2019-07-17 12:30:00Unknown Test Item Value Reference Range Comments Urine nitrite detection by automated test Positive Unknown Unknown F strip (test code = 41188-7) Ordering Physician UnknownProtein [Mass/volume] in Urine by Automated test oatyy3159-78-63 12:30:00Identifier 52777-7 Result Time 2019-07-17 12:30: 00Unknown Test Item Value Reference Range Comments Protein [Mass/volume] in Urine by Negative Unknown Unknown F Automated test strip (test code = 72906-8) Ordering Physician UnknownSpecific gravity of Urine by Refractometry ccrkindyo0325-09-80 12:30:00Identifier 06128-2 Result Time 2019-07-17 12:30: 00Unknown Test Item Value Reference Range Comments Specific gravity of Urine by Refractometry 1.009 Unknown Unknown F automated (test code = 37029-4) Ordering Physician UnknownUrine erythrocytes detection by automated pogbye976207-16 12:30:00Identifier 19693-5 Result Time 2019-07-17 12:30:00Unknown Test Item Value Reference Range Comments Urine erythrocytes detection by 3+(>10/hpf) Unknown Unknown F automated method (test code = 38517-1) Ordering Physician UnknownUrine leukocytes detection by automated tvplio0231-91- 28 12:30:00Identifier 43238-8 Result Time 2019-07-17 12:30:00Unknown Test Item Value Reference Range Comments Urine leukocytes detection by 3+(>20/hpf) Unknown Unknown F automated method (test code = 39643-7) Ordering Physician UnknownUrine hemoglobin detection by test ycztj6156-43-29 12: 30:00Identifier 5794-3 Result Time 2019-07-17 12:30:00Unknown Test Item Value Reference Range Comments Urine hemoglobin detection by test strip (test 3+ Unknown Unknown F code = 5794-3) Ordering Physician UnknownUrine leukocyte esterase detection by automated test oqfyo7034-81-45 12:30:00Identifier 47085-4 Result Time 2019-07-17 12:30: 00Unknown Test Item Value Reference Range Comments Urine leukocyte esterase detection by automated 3+ Unknown Unknown F test strip (test code = 99929-8) Ordering Physician UnknownSerum or plasma vitamin B12 [...] plasma troponin i.cardiac measurement (mass/ volume)2019-07-16 21:08:00Identifier 30667-0 Result Time 2019-07-16 21:08: 00Unknown Test Item Value Reference Range Comments Serum or plasma troponin i.cardiac 0.37 ng/mL Unknown Unknown F measurement (mass/volume) (test code = 31461-0) Ordering Physician UnknownSerum or plasma alanine aminotransferase measurement ( enzymatic activity/volume)2019-07-16 14:12:00Identifier 1742-6 Result Time 07-15 14:12:00Unknown Test Item Value Reference Range Comments Serum or plasma alanine aminotransferase 6 U/L Unknown Unknown F measurement (enzymatic activity/volume) (test code = 1742-6) Ordering Physician UnknownSerum or plasma albumin/globulin mass jsrzl6509-37-93 14:12:00Identifier 1759-0 Result Time 2019-07-16 14:12:00Unknown Test [...] Ordering Physician UnknownBilirubin.indirect [Mass/volume] in Serum or Ubhgng4190-89-10 14:12:00Identifier 1970-04 Result Time 2019-07-16 14:12: 00Unknown [...] (test code = 1974-05) Ordering Physician UnknownPCO2 fgdmyw6930-57-85 14:12:00Identifier 2020-07 Result Time 2019-07-16 14:12:00Unknown Test Item Value Reference Range Comments PCO2 venous (test code = 2020-07) 45 mmHg Unknown Unknown F Ordering Physician UnknownSerum or plasma high density lipoprotein (HDL) cholesterol nvxtmguulej1480-10-77 14:12:00Identifier 2084-12 Result Time 14:12:00Unknown Test Item [...] (LDL) cholesterol measurement (mass/volume) (test code = 2088-04) Ordering Physician UnknownSerum or plasma cholesterol measurement (mass/volume) 2019-07-16 14:12:00Identifier 2093-3 Result Time 2019-07-16 14:12:00Unknown Test Item Value [...] (test code = 2571-8) Ordering Physician UnknownPO2 chzthm6623-60-91 14:12:00Identifier 2705-2 Result Time 2019-07-16 14:12:00Unknown Test Item Value Reference Range Comments PO2 venous (test code = 2705-2) 39.0 mmHg Unknown Unknown F Ordering Physician UnknownVenous blood pH dfzpzjgxard5963-31-65 14:12: 00Identifier 2746-6 Result Time 2019-07-16 14:12:00Unknown [...] natriuretic peptide B measurement ( mass/volume)2019-07-16 14:12:00Identifier 10543-1 Result Time 2019-07-16 14:12: 00Unknown Test Item Value Reference Range Comments Serum or plasma natriuretic peptide B 849 pg/mL Unknown Unknown F measurement (mass/volume) (test code = 96252-8) Ordering Physician UnknownVenous blood oxygen saturation calculated from oxygen partial bunanmuf3685-61-87 14:12:00Identifier 81924-0 Result Time 2019-07-16 14: 12:00Unknown Test Item Value Reference Range Comments Venous blood oxygen saturation calculated 66.2 % Unknown Unknown F from oxygen partial pressure (test code = 37767-4) Ordering Physician UnknownSerum or plasma albumin measurement by bromocresol green (BCG) dye binding method (eg9781-84-25 14:12:00Identifier 72460-4 Result Time 2019-07-16 14:12:00Unknown Test Item Value Reference Range Comments Serum or plasma albumin measurement by 3.7 g/dL Unknown Unknown F bromocresol green (BCG) dye binding method (ma (test code = 36252-1) Ordering Physician UnknownSerum or plasma alkaline phosphatase measurement ( enzymatic activity/volume)2019-07-16 14:12:00Identifier 6768-6 Result Time 07-15 14:12:00Unknown Test Item Value Reference Range Comments Serum or plasma alkaline phosphatase 69 U/L Unknown Unknown F measurement (enzymatic activity/volume) (test code = 6768-6) Ordering Physician UnknownInfluenza virus A RNA detection by probe and target amplification ccpjat2397-73-39 13:18:00Identifier 16727-6 Result Time 13:18:00Unknown Test Item Value Reference Range Comments Influenza virus A RNA detection by probe Negative Unknown Unknown F and target amplification method (test code = 26899-1) Ordering Physician UnknownInfluenza virus B RNA detection by probe and target amplification ybgayf9465-68-83 13:18:00Identifier 19049-8 Result Time 13:18:00Unknown Test Item Value Reference Range Comments Influenza virus B RNA detection by probe Negative Unknown Unknown F and target amplification method (test code = 47005-4) Ordering Physician Unknown
--- OUTSIDE RECORDS SUMMARY | 2019-08-06 13:52 | XMS REPORT ---
:1945 Author Organization [facility] Care Team Providers Name Role Phone Unavailable Unavailable Unavailable Problems Condition Condition Condition Status Onset Resolution Last Treating Comments Name Details Category Date Date Treatment Clinician Date Hypertensiv Hypertensiv Diagnosis Active 2018-04 Shreya e heart and e heart and 05-12 Ethan chronic chronic [id number] kidney kidney disease disease with heart with heart failure and failure and stage 1 stage 1 through through stage 4 stage 4 chronic chronic kidney kidney disease, or disease, or unspecified unspecified chronic chronic kidney kidney disease disease Heart Heart Diagnosis Active 2018-04 Shreya failure, failure, 05-12 Ethan unspecified unspecified [id number] Type 2 Type 2 Diagnosis Active 2018-04 Shreya diabetes diabetes 05-12 Ethan mellitus mellitus [id number] with with diabetic diabetic chronic chronic kidney kidney disease disease Chronic Chronic Diagnosis Active 2018-04 Shreya kidney kidney 05-12 Ethan disease, disease, [id number] unspecified unspecified Unspecified Unspecified Diagnosis Active 2018-04 Shreya atrial atrial 05-12 Ethan fibrillatio fibrillatio [id number] n n Chronic Chronic Diagnosis Active 2018-04 Shreya obstructive obstructive 05-12 Ethan pulmonary pulmonary [id number] disease, disease, unspecified unspecified 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 Active Shreya chronic chronic Ethan kidney kidney [id number] disease disease Obstructive Obstructive Diagnosis Active Shreya sleep apnea sleep apnea Ethan (adult) (adult) [id number] (pediatric) (pediatric) Acute and Acute and Diagnosis Active Shreya chronic chronic Ethan respiratory respiratory [id number] failure failure with with hypoxia hypoxia Lymphedema, Lymphedema, Diagnosis Active Shreya not not Ethan elsewhere elsewhere [id number] classified classified Retention Retention Diagnosis Active Shreya of urine, of urine, Ethan unspecified unspecified 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 Ethan without without [id number] dysplasia dysplasia Gastro-esop Gastro-esop Diagnosis Active Shreya hageal hageal Ethan reflux reflux [id number] disease disease without without esophagitis esophagitis Unspecified Unspecified Diagnosis Active Shreya osteoarthri osteoarthri Ethan tis, tis, [id number] unspecified unspecified site site Unspecified Unspecified Diagnosis Active Shreya cataract cataract Ethan [id number] Major Major Diagnosis Active Shreya depressive depressive Ethan disorder, disorder, [id number] single single episode, episode, unspecified unspecified Age-related Age-related Diagnosis Active Shreya osteoporosi osteoporosi Ethan s without s without [id number] current current pathologica pathologica l fracture l fracture Dependence Dependence Diagnosis Active Shreya on on Ethan supplementa supplementa [id number] l oxygen l oxygen USP USP Diagnosis Active Shreya (current) (current) Ethan use of use of [id number] anticoagula anticoagula nts nts Personal Personal Diagnosis Active Shreya history of history of Ethan transient transient [id number] ischemic ischemic attack attack (TIA), and (TIA), and cerebral cerebral infarction infarction without without residual residual deficits deficits 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 al fluid [id number] drainage drainage device device Personal Personal Diagnosis Active Shreya history of history of Ethan nicotine nicotine [id number] dependence dependence Encounter Encounter Diagnosis Active Shreya for fitting for fitting Ethan and and [id number] adjustment adjustment of urinary of urinary device device Personal Personal Diagnosis Active Shreya history of history of Ethan urinary urinary [id number] (tract) (tract) infections infections Other long Other long Diagnosis Active Shreya term term Ethan (current) (current) [id number] drug drug therapy therapy Pain frequent Pain Mgmt Active 2019-0 Kaila pain 07-20 [place] 11:30: [id number] 00 Respiratory dyspnea Respirator Active 2019-0 Kaila present y 07-20 [place] 11:30: [id number] 00 Respiratory oxygen Respirator Active 2019-0 Kaila treatments y 07-20 [place] in home 11:30: [id number] 00 Respiratory smoker Respirator Active 2020-0 Kaila y 07-20 [place] 11:30: [id number] 00 Endo/Ernie diabetic Endo/Ernie Active 2020-0 Kaila foot care 07-20 [place] 11:30: [id number] 00 Endo/Ernie anti-coagul Endo/Ernie Active 2020-0 Kaila ation 07-20 [place] therapy 11:30: [id number] 00 Sensory impaired Sensory Active 2020-0 Kaila hearing 07-20 [place] 11:30: [id number] 00 Nutrition nutritional Nutrition Active 2020-0 Kaila restriction 07-20 [place] s 11:30: [id number] 00 Elimination recurring Eliminatio Active 2020-0 Kaila UTI n 07-20 [place] 11:30: [id number] 00 Elimination UTI within Eliminatio Active 2020-0 Kaila past 14 n 07-20 [place] days 11:30: [id number] 00 Elimination catheter Eliminatio Active 2020-0 Kaila present n 07-20 [place] 11:30: [id number] 00 Neuro confusion Neuro/Emot Active 2020-0 Kaila present ion 07-20 [place] 11:30: [id number] 00 Neuro impaired Neuro/Emot Active 2020-0 Kaila decision-ma ion 07-20 [place] juan manuel 11:30: [id number] 00 Neuro memory Neuro/Emot Active 2020-0 Kaila deficit ion 07-20 [place] needing 11:30: [id number] supervision 00 Activity ADL Activity Active 2020-0 Kaila assistance 07-20 [place] required 11:30: [id number] 00 Activity self-care Activity Active 2020-0 Kaila deficit 07-20 [place] 11:30: [id number] 00 Safety structural Safety Active 2020-0 Kaila barriers 07-20 [place] present 11:30: [id number] 00 Safety sanitation Safety Active 2020-0 Kaila hazards 07-20 [place] present 11:30: [id number] 00 Safety cannot be Safety Active 2020-0 Kaila left alone 07-20 [place] 11:30: [id number] 00 Safety fall risk Safety Active 2020-0 Kaila factor 07-20 [place] present 11:30: [id number] 00 Safety risk for Safety Active 2020-0 Kaila hospitaliza 07-20 [place] tion 11:30: [id number] 00 Medication oral med Meds Active 2020-0 Kaila assistance 07-20 [place] required 11:30: [id number] 00 Medication knowledge/s Meds Active 2020-0 Kaila kill 07-20 [place] deficit: pt 11:30: [id number] 00 Medication knowledge/s Meds Active 2020-0 Kaila kill 07-20 [place] deficit: cg 11:30: [id number] 00 Musculoskel transfer Musculoske Active 2020-0 Kaila etal assistance letal 07-20 [place] required 11:30: [id number] 00 Musculoskel requires Musculoske Active 2020-0 Kaila etal human letal 07-20 [place] assist to 11:30: [id number] leave home 00 Cath/Ostomy k/s Cath\Ostom Active 2020-0 Kaila /GI deficit: y\GI Care 07-20 [place] cath/ost/GI 11:30: [id number] care - pt 00 Cath/Ostomy k/s Cath\Ostom Active 2020-0 Kaila /GI deficit: y\GI Care 07-20 [place] cath/ost/GI 11:30: [id number] care - cg 00 Respiratory lung sounds Respirator Active 2020-0 Shreya deficit y 07-22 Ethan 11:30: [id number] 00 Safety can be left Safety Active 2019-0 Shreya alone for 07-22 Ethan only short 11:30: [id number] periods 00 Allergies, Adverse Reactions, Alerts Allergy Allergy [...] 07-20 Morgan CHAIDEZ tablet tablet ferrous ferrous 2020-0 Yes Breiman Unknown Unknown sulfate 325 sulfate 325 07-20 Morgan CHAIDEZ mg (65 mg mg (65 mg iron) iron) tablet tablet cyanocobala cyanocobala Yes Breiman Unknown Unknown min (vit min (vit 07-20 ,Morgan B-12) 500 B-12) 500 mcg tablet mcg tablet cholestyram cholestyram Yes Breiman Unknown Unknown ine (with ine (with 07-20 Morgan CHAIDEZ sugar) oral sugar) oral powder powder metoprolol metoprolol 0 Yes Breiman Unknown Unknown tartrate 50 tartrate 50 07-20 Morgan CHAIDEZ mg tablet mg tablet citalopram citalopram Yes Breiman Unknown Unknown 10 mg 10 mg 07-20 Morgan CHAIDEZ tablet tablet metOLazone metOLazone Yes Breiman Unknown Unknown 5 mg tablet 5 mg tablet 07-20 Morgan CHAIDEZ cefUROXime cefUROXime 0 2020- Yes Breiman Unknown Unknown axetiL 250 axetiL 250 07-20 Morgan CHAIDEZ mg tablet mg tablet torsemide torsemide Yes Breiman Unknown Unknown 20 mg 20 mg 07-20 Morgan CHAIDEZ tablet tablet Eliquis 5 Eliquis 5 Yes Breiman Unknown Unknown mg tablet mg tablet 07-20 Morgan CHAIDEZ Anoro Anoro Yes Breiman Unknown Unknown Ellipta Ellipta 07-20 Morgan CHAIDEZ 62.5 mcg-25 62.5 mcg-25 mcg/actuati mcg/actuati on powder on powder for for inhalation inhalation albuterol albuterol Yes Breiman Unknown Unknown sulfate HFA sulfate HFA 07-20 Morgan CHAIDEZ 90 90 mcg/actuati mcg/actuati on aerosol on aerosol inhaler inhaler Acetaminoph Acetaminoph Yes Breiman Unknown Unknown en Pain en Pain 07-20 Morgan CHADIEZ Relief 500 Relief 500 mg tablet mg tablet traMADoL 50 traMADoL 50 Yes Breiman Unknown Unknown mg tablet mg tablet 07-20 Morgan CHAIDEZ Oxygen Oxygen Yes Breiman Unknown Unknown 07-20 Morgan CHAIDEZ Vital Signs Vital Name Observation Time Observation Value Comments SYSTOLIC mm[Hg] 2019-07-23 18:11:12 130 mm[Hg] mm[Hg] Method: Sit SYSTOLIC mm[Hg] 2019-07-21 18:11:10 120 mm[Hg] mm[Hg] Method: Stand DIASTOLIC mm[Hg] 2019-07-23 18:11:12 80 mm[Hg] mm[Hg] Method: Sit DIASTOLIC mm[Hg] 2019-07-21 18:11:10 80 mm[Hg] mm[Hg] Method: Stand PULSE 2019-07-23 18:11:12 95 /min /min RESP RATE 2019-07-23 18:11:12 22 /min /min TEMP 2019-07-23 18:11:12 96.6 [degF] Procedures This patient has no known procedures. Results Test Description Test Time Test Comments Text Results Atomic Results Result Comments Serum or plasma calcium 2019-07-19 10:45:00 Identifier 43443-3 Result Unknown measurement (mass/volume) Time 2019-07-19 10:45:00 Test Item Value Reference Range Comments Serum or plasma calcium measurement (mass/volume) (test 10.0 mg/dL Unknown Unknown F code = 65340-7) Ordering Physician UnknownSerum or plasma magnesium measurement (mass/volume) 2019-07-19 10:45:00Identifier 67648-6 Result Time 2019-07-19 10:45:00Unknown Test Item Value Reference Range Comments Serum or plasma magnesium measurement 1.9 mg/dL Unknown Unknown F (mass/volume) (test code = 88064-6) Ordering Physician UnknownSerum or plasma carbon dioxide, [...] Unknown Unknown F (moles/volume) (test code = 5-0) Ordering Physician UnknownSerum or plasma creatinine measurement [...] Ordering Physician UnknownSerum or plasma urea nitrogen/creatinine dywuw0605-94- 30 10:45:00Identifier 3097-3 Result Time 2019-07-19 10:45:00Unknown Test Item Value Reference Range Comments Serum or plasma urea nitrogen/creatinine 30.7 Unknown Unknown F ratio (test code = 3097-3) Ordering Physician UnknownAutomated blood platelet mean volume [id number]- 03-30 10:45:00Identifier 67737-0 Result Time 2019-07-19 10:45:00Unknown Test Item Value Reference Range Comments Automated blood platelet mean volume 7.4 fL Unknown Unknown F measurement (test code = 03460-0) Ordering Physician UnknownSerum or plasma anion [id number] 10:45: 00Identifier 49716-4 Result Time 2019-07-19 10:45:00Unknown Test Item Value Reference Range Comments Serum or plasma anion gap (test code = 10 mmol/L Unknown Unknown F 72275-7) Ordering Physician UnknownAutomated blood leukocytes count corrected for nucleated erythrocytes (number/volume)2019-07-19 10:45:00Identifier 02405-4 Result Time 2019-07-19 10:45:00Unknown Test Item Value Reference Range Comments Automated blood leukocytes count 7.9 10^3/uL Unknown Unknown F corrected for nucleated erythrocytes (number/volume) (test code = 19040-0) Ordering Physician UnknownAutomated blood nucleated erythrocytes ngqpyrqhi8304- 03-30 10:45:00Identifier 07956-8 Result Time 2019-07-19 10:45:00Unknown Test Item Value Reference Range Comments Automated blood nucleated erythrocytes 0.1 Unknown Unknown F detection (test code = 15144-9) Ordering Physician UnknownAutomated blood hematocrit (percentage)2019-07-19 10: 45:00Identifier 4544-3 Result Time 2019-07-19 10:45:00Unknown Test Item Value Reference Range Comments Automated blood hematocrit (percentage) (test 33 % Unknown Unknown F code = 4544-3) Ordering Physician UnknownEstimated glomerular filtration rate (GFR) non- Lswztwml5569-79-53 10:45:00Identifier 60720-2 Result Time 2019-07-19 10: 45:00Unknown Test Item Value Reference Range Comments Estimated glomerular filtration rate (GFR) 41.2 Unknown Unknown F non- (test code = 35078-9) Ordering Physician UnknownAutomated blood monocytes/100 [id number] 10: 45:00Identifier 5905-5 Result Time 2019-07-19 10:45:00Unknown [...] = 704-7) Ordering Physician UnknownAutomated blood basophils/100 pewfefaiye8266-66-41 10: 45:00Identifier 706-2 Result Time 2019-07-19 10:45:00Unknown [...] = 711-2) Ordering Physician UnknownAutomated blood eosinophils/100 fttgvbnkxx5345-99-03 10:45:00Identifier 713-8 Result Time 2019-07-19 10:45:00Unknown Test [...] = 731-0) Ordering Physician UnknownAutomated blood lymphocytes/100 mceavjwlya8173-06-34 10:45:00Identifier 736-9 Result Time 2019-07-19 10:45:00Unknown Test Item Value Reference Range Comments Automated blood lymphocytes/100 leukocytes 3.0 % Unknown Unknown F (test code = 736-9) Ordering Physician UnknownBlood monocytes automated count (number/volume)2019-06 10:45:00Identifier 742-7 Result Time 2019-07-19 10:45:00Unknown Test Item Value Reference Range Comments Blood monocytes automated count 0.4 10^3/ul Unknown Unknown F (number/volume) (test code = 742-7) Ordering Physician UnknownAutomated blood neutrophils/100 fdxgeyhbxf3736-51-62 10:45:00Identifier 770-8 Result Time 2019-07-19 10:45:00Unknown Test [...] UnknownAutomated erythrocyte mean corpuscular hemoglobin concentration measurement (mass/rsm1007-49-11 10:45:00Identifier 786-4 Result Time 2019-07-19 10:45:00Unknown Test Item Value Reference Range Comments Automated erythrocyte mean corpuscular 33 g/dL Unknown Unknown F hemoglobin concentration measurement (mass/vol (test code = 786-4) Ordering Physician UnknownAutomated erythrocyte mean corpuscular gmtfwj4247-48- 30 10:45:00Identifier 787-2 Result Time 2019-07-19 10:45:00Unknown Test Item Value Reference Range Comments Automated erythrocyte mean corpuscular volume 91 fL Unknown Unknown F (test code = 787-2) Ordering Physician UnknownAutomated erythrocyte distribution width zqkae7568-92- 30 10:45:00Identifier 788-0 Result Time 2019-07-19 10:45:00Unknown [...] code = 789-8) Ordering Physician UnknownLymphocyte proliferation slyz6256-87-28 10:45: 00Identifier [id number] Result Time 2019-07-19 10:45:00Unknown Test Item Value Reference Range Comments Lymphocyte proliferation test (test 7.1 10^3/ul Unknown Unknown F code = NGC4827) Ordering Physician UnknownUrine urobilinogen measurement (units/volume) by test sjhet9224-98-76 12:30:00Identifier 49347-6 Result Time 2019-07-17 12:30: 00Unknown Test Item Value Reference Range Comments Urine urobilinogen measurement Negative Unknown Unknown F (units/volume) by test strip (test code = 53804-5) Ordering Physician UnknownUrine bacteria detection by automated wpxdmz7738-03- 28 12:30:00Identifier 03221-8 Result Time 2019-07-17 12:30:00Unknown Test Item Value Reference Range Comments Urine bacteria detection by automated Absent Unknown Unknown F method (test code = 07594-2) Ordering Physician UnknownUrine total bilirubin detection by automated test [id number] 12:30:00Identifier 21473-2 Result Time 2019-07-17 12:30: 00Unknown Test Item Value Reference Range Comments Urine total bilirubin detection by Negative Unknown Unknown F automated test strip (test code = 64953-4) Ordering Physician UnknownUrine clarity by refractometry jmisaidyg5680-76-82 12: 30:00Identifier 36737-1 Result Time 2019-07-17 12:30:00Unknown Test Item Value Reference Range Comments Urine clarity by refractometry automated Cloudy Unknown Unknown F (test code = 81711-7) Ordering Physician UnknownColor of Urine by Awxb8913-32-93 12:30:00Identifier 98005-4 Result Time 2019-07-17 12:30:00Unknown Test Item Value Reference Range Comments Color of Urine by Auto (test code = Yellow Unknown Unknown F 71005-1) Ordering Physician UnknownUrine glucose detection by automated test opfkv5206-92 -28 12:30:00Identifier 67403-1 Result Time 2019-07-17 12:30:00Unknown Test Item Value Reference Range Comments Urine glucose detection by automated test Negative Unknown Unknown F strip (test code = 16019-2) Ordering Physician UnknownKetones [Mass/volume] in Urine by Automated test qvvxl0109-80-33 12:30:00Identifier 12125-8 Result Time 2019-07-17 12:30: 00Unknown Test Item Value Reference Range Comments Ketones [Mass/volume] in Urine by Negative Unknown Unknown F Automated test strip (test code = 37944-8) Ordering Physician UnknownUrine nitrite detection by automated test rbcfn2962-36 -28 12:30:00Identifier 96467-1 Result Time 2019-07-17 12:30:00Unknown Test Item Value Reference Range Comments Urine nitrite detection by automated test Positive Unknown Unknown F strip (test code = 64673-0) Ordering Physician UnknownProtein [Mass/volume] in Urine by Automated test [id number] 12:30:00Identifier 60151-7 Result Time 2019-07-17 12:30: 00Unknown Test Item Value Reference Range Comments Protein [Mass/volume] in Urine by Negative Unknown Unknown F Automated test strip (test code = 46113-5) Ordering Physician UnknownSpecific gravity of Urine by Refractometry hpmioqmaw5080-58-82 12:30:00Identifier 85792-6 Result Time 2019-07-17 12:30: 00Unknown Test Item Value Reference Range Comments Specific gravity of Urine by Refractometry 1.009 Unknown Unknown F automated (test code = 27812-2) Ordering Physician UnknownUrine erythrocytes detection by automated zjpbjb964907-16 12:30:00Identifier 86271-8 Result Time 2019-07-17 12:30:00Unknown Test Item Value Reference Range Comments Urine erythrocytes detection by 3+(>10/hpf) Unknown Unknown F automated method (test code = 39122-1) Ordering Physician UnknownUrine leukocytes detection by automated hrlorv3660-30- 28 12:30:00Identifier 65512-9 Result Time 2019-07-17 12:30:00Unknown Test Item Value Reference Range Comments Urine leukocytes detection by 3+(>20/hpf) Unknown Unknown F automated method (test code = 71491-3) Ordering Physician UnknownUrine hemoglobin detection by test ulvar4261-40-49 12: 30:00Identifier 5794-3 Result Time 2019-07-17 12:30:00Unknown Test Item Value Reference Range Comments Urine hemoglobin detection by test strip (test 3+ Unknown Unknown F code = 5794-3) Ordering Physician UnknownUrine leukocyte esterase detection by automated test yllez5543-72-88 12:30:00Identifier 20960-4 Result Time 2019-07-17 12:30: 00Unknown Test Item Value Reference Range Comments Urine leukocyte esterase detection by automated 3+ Unknown Unknown F test strip (test code = 89723-4) Ordering Physician UnknownSerum or plasma vitamin B12 [...] plasma troponin i.cardiac measurement (mass/ volume)2019-07-16 21:08:00Identifier 09874-1 Result Time 2019-07-16 21:08: 00Unknown Test Item Value Reference Range Comments Serum or plasma troponin i.cardiac 0.37 ng/mL Unknown Unknown F measurement (mass/volume) (test code = 72399-4) Ordering Physician UnknownSerum or plasma alanine aminotransferase measurement ( enzymatic activity/volume)2019-07-16 14:12:00Identifier 1742-6 Result Time 07-15 14:12:00Unknown Test Item Value Reference Range Comments Serum or plasma alanine aminotransferase 6 U/L Unknown Unknown F measurement (enzymatic activity/volume) (test code = 1742-6) Ordering Physician UnknownSerum or plasma albumin/globulin mass [id number] 14:12:00Identifier 1759-0 Result Time 2019-07-16 14:12:00Unknown Test Item Value Reference Range Comments Serum or plasma albumin/globulin mass ratio 1.0 Unknown Unknown F (test code = 1759-0) Ordering Physician UnknownSerum or plasma aspartate aminotransferase measurement (enzymatic activity/volume)2019-07-16 14:12:00Identifier 1919-11 Result Time 2019-07-16 14:12:00Unknown Test Item Value [...] Ordering Physician UnknownBilirubin.indirect [Mass/volume] in Serum or Algzkm6831-02-41 14:12:00Identifier 1970-04 Result Time 2019-07-16 14:12: 00Unknown [...] (test code = 1974-05) Ordering Physician UnknownPCO2 [id number] 14:12:00Identifier 2020-07 Result Time 2019-07-16 14:12:00Unknown Test Item Value Reference Range Comments PCO2 venous (test code = 2020-07) 45 mmHg Unknown Unknown F Ordering Physician UnknownSerum or plasma high density lipoprotein (HDL) cholesterol [id number] 14:12:00Identifier 2084-12 Result Time 14:12:00Unknown Test Item Value Reference Range Comments Serum or plasma high density lipoprotein 26.2 mg/dL Unknown Unknown F (HDL) cholesterol measurement (test code = 2084-12) Ordering Physician UnknownSerum or plasma low density lipoprotein (LDL) cholesterol measurement (mass/volume)2019-07-16 14:12:00Identifier 9- Result Time 2019-07-16 14:12:00Unknown Test Item Value [...] (test code = 2571-8) Ordering Physician UnknownPO2 [id number] 14:12:00Identifier 2705-2 Result Time 2019-07-16 14:12:00Unknown Test Item Value Reference Range Comments PO2 venous (test code = 2705-2) 39.0 mmHg Unknown Unknown F Ordering Physician UnknownVenous blood pH ahhklzpvouz0722-83-72 14:12: 00Identifier 2746-6 Result Time 2019-07-16 14:12:00Unknown [...] natriuretic peptide B measurement ( mass/volume)2019-07-16 14:12:00Identifier 17461-3 Result Time 2019-07-16 14:12: 00Unknown Test Item Value Reference Range Comments Serum or plasma natriuretic peptide B 849 pg/mL Unknown Unknown F measurement (mass/volume) (test code = 18370-8) Ordering Physician UnknownVenous blood oxygen saturation calculated from oxygen partial wvxarlyn9853-05-01 14:12:00Identifier 93933-1 Result Time 2019-07-16 14: 12:00Unknown Test Item Value Reference Range Comments Venous blood oxygen saturation calculated 66.2 % Unknown Unknown F from oxygen partial pressure (test code = 54101-8) Ordering Physician UnknownSerum or plasma albumin measurement by bromocresol green (BCG) dye binding method ([id number] 14:12:00Identifier 18413-2 Result Time 2019-07-16 14:12:00Unknown Test Item Value Reference Range Comments Serum or plasma albumin measurement by 3.7 g/dL Unknown Unknown F bromocresol green (BCG) dye binding method (ma (test code = 45580-7) Ordering Physician UnknownSerum or plasma alkaline phosphatase measurement ( enzymatic activity/volume)2019-07-16 14:12:00Identifier 6768-6 Result Time 07-15 14:12:00Unknown Test Item Value Reference Range Comments Serum or plasma alkaline phosphatase 69 U/L Unknown Unknown F measurement (enzymatic activity/volume) (test code = 6768-6) Ordering Physician UnknownInfluenza virus A RNA detection by probe and target amplification [id number] 13:18:00Identifier 80483-2 Result Time 13:18:00Unknown Test Item Value Reference Range Comments Influenza virus A RNA detection by probe Negative Unknown Unknown F and target amplification method (test code = 51592-0) Ordering Physician UnknownInfluenza virus B RNA detection by probe and target amplification [id number] 13:18:00Identifier 40557-3 Result Time 13:18:00Unknown Test Item Value Reference Range Comments Influenza virus B RNA detection by probe Negative Unknown Unknown F and target amplification method (test code = 02743-2) Ordering Physician Unknown
--- OUTSIDE RECORDS SUMMARY | 2019-08-06 13:52 | XMS REPORT ---
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, failure, 07-18 Ethan unspecified unspecified [id number] Pain frequent Pain Mgmt Active 2020-0 Kaila pain 07-20 [place] 11:30: [id number] Respiratory dyspnea Respirator Active 2020-0 Kaila present y 07-20 [place] 11:30: [id number] Respiratory oxygen Respirator Active 2020-0 Kaila treatments y 07-20 [place] in home 11:30: [id number] 00 Respiratory smoker Respirator Active 2020-0 Kaila y 07-20 [place] 11:30: [id number] 00 Endo/Ernie diabetic Endo/Ernie Active 2020-0 Kaila foot care 07-20 [place] 11:30: [id number] 00 Endo/Ernie anti-coagul Endo/Ernie Active 2020-0 Kaila ation 07-20 [place] therapy 11:30: [id number] 00 Sensory impaired Sensory Active 2020-0 Kaila hearing 07-20 [place] 11:30: [id number] 00 Nutrition nutritional Nutrition Active 2020-0 Kaila restriction 07-20 [place] s 11:30: [id number] 00 Elimination recurring Eliminatio Active 2020-0 Kaila UTI n 07-20 [place] 11:30: [id number] 00 Elimination UTI within Eliminatio Active 2020-0 Kaila past 14 n 07-20 [place] days 11:30: [id number] 00 Elimination catheter Eliminatio Active 2020-0 Kaila present n 07-20 [place] 11:30: [id number] 00 Neuro confusion Neuro/Emot Active 2020-0 Akila present ion 07-20 [place] 11:30: [id number] 00 Neuro impaired Neuro/Emot Active 2020-0 Kaila decision-ma ion 07-20 [place] juan manuel 11:30: [id number] 00 Neuro memory Neuro/Emot Active 2020-0 Kaila deficit ion 07-20 [place] needing 11:30: [id number] supervision 00 Activity ADL Activity Active 2020-0 Kaila assistance 07-20 [place] required 11:30: [id number] 00 Activity self-care Activity Active 2020-0 Kaila deficit 07-20 [place] 11:30: [id number] 00 Safety structural Safety Active 2020-0 Kaila barriers 07-20 [place] present 11:30: [id number] 00 Safety sanitation Safety Active 2020-0 Kaila hazards 07-20 [place] present 11:30: [id number] 00 Safety cannot be Safety Active 2020-0 Kaila left alone 07-20 [place] 11:30: [id number] 00 Safety fall risk Safety Active 2020-0 Kaila factor 07-20 [place] present 11:30: [id number] 00 Safety risk for Safety Active 2020-0 Kaila hospitaliza 07-20 [place] tion 11:30: [id number] 00 Medication oral med Meds Active 2020-0 Kaila assistance 07-20 [place] required 11:30: [id number] 00 Medication knowledge/s Meds Active 2020-0 Kaila kill 07-20 [place] deficit: pt 11:30: [id number] 00 Medication knowledge/s Meds Active 2020-0 Kaila kill 07-20 [place] deficit: cg 11:30: [id number] 00 Musculoskel transfer Musculoske Active 2020-0 Kaila etal assistance letal 07-20 [place] required 11:30: [id number] 00 Musculoskel requires Musculoske Active 2020-0 Kaila etal human letal 07-20 [place] assist to 11:30: [id number] leave home 00 Cath/Ostomy k/s Cath\Ostom Active 2020-0 Kaila /GI deficit: y\GI Care 07-20 [place] cath/ost/GI 11:30: [id number] care - pt 00 Cath/Ostomy k/s Cath\Ostom Active 2020-0 Kaila /GI deficit: y\GI Care 07-20 [place] cath/ost/GI 11:30: [id number] care - cg 00 Allergies, Adverse Reactions, [...] sugar) oral powder powder metoprolol metoprolol Yes Bre[place] Unknown Unknown tartrate 50 tartrate [...] Serum or plasma calcium 2019-07-19 10:45:00 Identifier 39391-9 Result Unknown measurement (mass/volume) Time 2019-07-19 10:45:00 Test Item Value Reference Range Comments Serum or plasma calcium measurement (mass/volume) (test 10.0 mg/dL Unknown Unknown F code = 68700-9) Ordering Physician UnknownSerum or plasma magnesium measurement (mass/volume) 2019-07-19 10:45:00Identifier 49017-2 Result Time 2019-07-19 10:45:00Unknown Test Item Value Reference Range Comments Serum or plasma magnesium measurement 1.9 mg/dL Unknown Unknown F (mass/volume) (test code = 94824-7) Ordering Physician UnknownSerum or plasma carbon dioxide, [...] Ordering Physician UnknownSerum or plasma urea nitrogen/creatinine [id number]- 30 10:45:00Identifier 3097-3 Result Time 2019-07-19 10:45:00Unknown Test Item Value Reference Range Comments Serum or plasma urea nitrogen/creatinine 30.7 Unknown Unknown F ratio (test code = 3097-3) Ordering Physician UnknownAutomated blood platelet mean volume mxadvknwxuc3718- 03-30 10:45:00Identifier 28787-8 Result Time 2019-07-19 10:45:00Unknown Test Item Value Reference Range Comments Automated blood platelet mean volume 7.4 fL Unknown Unknown F measurement (test code = 03231-7) Ordering Physician UnknownSerum or plasma anion [id number] 10:45: 00Identifier 17858-4 Result Time 2019-07-19 10:45:00Unknown Test Item Value Reference Range Comments Serum or plasma anion gap (test code = 10 mmol/L Unknown Unknown F 38896-5) Ordering Physician UnknownAutomated blood leukocytes count corrected for nucleated erythrocytes (number/volume)2019-07-19 10:45:00Identifier 38803-1 Result Time 2019-07-19 10:45:00Unknown Test Item Value Reference Range Comments Automated blood leukocytes count 7.9 10^3/uL Unknown Unknown F corrected for nucleated erythrocytes (number/volume) (test code = 17954-8) Ordering Physician UnknownAutomated blood nucleated erythrocytes npzylojdv5877- 03-30 10:45:00Identifier 42287-0 Result Time 2019-07-19 10:45:00Unknown Test Item Value Reference Range Comments Automated blood nucleated erythrocytes 0.1 Unknown Unknown F detection (test code = 15948-8) Ordering Physician UnknownAutomated blood hematocrit (percentage)2019-07-19 10: 45:00Identifier 4544-3 Result Time 2019-07-19 10:45:00Unknown Test Item Value Reference Range Comments Automated blood hematocrit (percentage) (test 33 % Unknown Unknown F code = 4544-3) Ordering Physician UnknownEstimated glomerular filtration rate (GFR) non- Ypdhfezy4293-49-96 10:45:00Identifier 69209-3 Result Time 2019-07-19 10: 45:00Unknown Test Item Value Reference Range Comments Estimated glomerular filtration rate (GFR) 41.2 Unknown Unknown F non- (test code = 38583-2) Ordering Physician UnknownAutomated blood monocytes/100 mrnmeylach8233-86-29 10: 45:00Identifier 5905-5 Result Time 2019-07-19 10:45:00Unknown [...] = 704-7) Ordering Physician UnknownAutomated blood basophils/100 fliuqhxqhs5018-93-98 10: 45:00Identifier 706-2 Result Time 2019-07-19 10:45:00Unknown [...] = 711-2) Ordering Physician UnknownAutomated blood eosinophils/100 twppfszayn9902-23-85 10:45:00Identifier 713-8 Result Time 2019-07-19 10:45:00Unknown Test [...] = 731-0) Ordering Physician UnknownAutomated blood lymphocytes/100 oiontrjasc3656-85-07 10:45:00Identifier 736-9 Result Time 2019-07-19 10:45:00Unknown Test Item Value Reference Range Comments Automated blood lymphocytes/100 leukocytes 3.0 % Unknown Unknown F (test code = 736-9) Ordering Physician UnknownBlood monocytes automated count (number/volume)2019-06 10:45:00Identifier 742-7 Result Time 2019-07-19 10:45:00Unknown Test Item Value Reference Range Comments Blood monocytes automated count 0.4 10^3/ul Unknown Unknown F (number/volume) (test code = 742-7) Ordering Physician UnknownAutomated blood neutrophils/100 [id number] 10:45:00Identifier 770-8 Result Time 2019-07-19 10:45:00Unknown Test [...] UnknownAutomated erythrocyte mean corpuscular hemoglobin concentration measurement (mass/kuw9726-11-47 10:45:00Identifier 786-4 Result Time 2019-07-19 10:45:00Unknown Test Item Value Reference Range Comments Automated erythrocyte mean corpuscular 33 g/dL Unknown Unknown F hemoglobin concentration measurement (mass/vol (test code = 786-4) Ordering Physician UnknownAutomated erythrocyte mean corpuscular qfcyhl8119-20- 30 10:45:00Identifier 787-2 Result Time 2019-07-19 10:45:00Unknown Test Item Value Reference Range Comments Automated erythrocyte mean corpuscular volume 91 fL Unknown Unknown F (test code = 787-2) Ordering Physician UnknownAutomated erythrocyte distribution width lxkkl2625-45- 30 10:45:00Identifier 788-0 Result Time 2019-07-19 10:45:00Unknown [...] code = 789-8) Ordering Physician UnknownLymphocyte proliferation [id number] 10:45: 00Identifier [id number] Result Time 2019-07-19 10:45:00Unknown Test Item Value Reference Range Comments Lymphocyte proliferation test (test 7.1 10^3/ul Unknown Unknown F code = YXU2445) Ordering Physician UnknownUrine urobilinogen measurement (units/volume) by test uxhdl1210-33-82 12:30:00Identifier 68163-5 Result Time 2019-07-17 12:30: 00Unknown Test Item Value Reference Range Comments Urine urobilinogen measurement Negative Unknown Unknown F (units/volume) by test strip (test code = 92274-1) Ordering Physician UnknownUrine bacteria detection by automated yxsllc3244-95- 28 12:30:00Identifier 50576-6 Result Time 2019-07-17 12:30:00Unknown Test Item Value Reference Range Comments Urine bacteria detection by automated Absent Unknown Unknown F method (test code = 14150-3) Ordering Physician UnknownUrine total bilirubin detection by automated test [id number] 12:30:00Identifier 92101-9 Result Time 2019-07-17 12:30: 00Unknown Test Item Value Reference Range Comments Urine total bilirubin detection by Negative Unknown Unknown F automated test strip (test code = 95108-4) Ordering Physician UnknownUrine clarity by refractometry evqrfcqag4766-29-15 12: 30:00Identifier 69977-0 Result Time 2019-07-17 12:30:00Unknown Test Item Value Reference Range Comments Urine clarity by refractometry automated Cloudy Unknown Unknown F (test code = 09165-6) Ordering Physician UnknownColor of Urine by Wssw0622-71-03 12:30:00Identifier 42138-2 Result Time 2019-07-17 12:30:00Unknown Test Item Value Reference Range Comments Color of Urine by Auto (test code = Yellow Unknown Unknown F 99954-7) Ordering Physician UnknownUrine glucose detection by automated test mrzkl4430-35 -28 12:30:00Identifier 21584-0 Result Time 2019-07-17 12:30:00Unknown Test Item Value Reference Range Comments Urine glucose detection by automated test Negative Unknown Unknown F strip (test code = 52093-9) Ordering Physician UnknownKetones [Mass/volume] in Urine by Automated test cuqcj2348-33-21 12:30:00Identifier 12140-1 Result Time 2019-07-17 12:30: 00Unknown Test Item Value Reference Range Comments Ketones [Mass/volume] in Urine by Negative Unknown Unknown F Automated test strip (test code = 15303-1) Ordering Physician UnknownUrine nitrite detection by automated test gjojr3276-22 -28 12:30:00Identifier 89258-9 Result Time 2019-07-17 12:30:00Unknown Test Item Value Reference Range Comments Urine nitrite detection by automated test Positive Unknown Unknown F strip (test code = 11157-3) Ordering Physician UnknownProtein [Mass/volume] in Urine by Automated test kymwr4192-92-78 12:30:00Identifier 11082-7 Result Time 2019-07-17 12:30: 00Unknown Test Item Value Reference Range Comments Protein [Mass/volume] in Urine by Negative Unknown Unknown F Automated test strip (test code = 47646-9) Ordering Physician UnknownSpecific gravity of Urine by Refractometry rfskradql5382-72-44 12:30:00Identifier 72821-4 Result Time 2019-07-17 12:30: 00Unknown Test Item Value Reference Range Comments Specific gravity of Urine by Refractometry 1.009 Unknown Unknown F automated (test code = 02042-6) Ordering Physician UnknownUrine erythrocytes detection by automated ayohsd491507-16 12:30:00Identifier 31141-2 Result Time 2019-07-17 12:30:00Unknown Test Item Value Reference Range Comments Urine erythrocytes detection by 3+(>10/hpf) Unknown Unknown F automated method (test code = 06037-3) Ordering Physician UnknownUrine leukocytes detection by automated entqng9830-97- 28 12:30:00Identifier 86870-9 Result Time 2019-07-17 12:30:00Unknown Test Item Value Reference Range Comments Urine leukocytes detection by 3+(>20/hpf) Unknown Unknown F automated method (test code = 65071-2) Ordering Physician UnknownUrine hemoglobin detection by test [id number] 12: 30:00Identifier 5794-3 Result Time 2019-07-17 12:30:00Unknown Test Item Value Reference Range Comments Urine hemoglobin detection by test strip (test 3+ Unknown Unknown F code = 5794-3) Ordering Physician UnknownUrine leukocyte esterase detection by automated test pcafo1598-31-53 12:30:00Identifier 76036-7 Result Time 2019-07-17 12:30: 00Unknown Test Item Value Reference Range Comments Urine leukocyte esterase detection by automated 3+ Unknown Unknown F test strip (test code = 54376-1) Ordering Physician UnknownSerum or plasma vitamin B12 [...] plasma troponin i.cardiac measurement (mass/ volume)2019-07-16 21:08:00Identifier 52432-4 Result Time 2019-07-16 21:08: 00Unknown Test Item Value Reference Range Comments Serum or plasma troponin i.cardiac 0.37 ng/mL Unknown Unknown F measurement (mass/volume) (test code = 48064-2) Ordering Physician UnknownSerum or plasma alanine aminotransferase measurement ( enzymatic activity/volume)2019-07-16 14:12:00Identifier 1742-6 Result Time 07-15 14:12:00Unknown Test Item Value Reference Range Comments Serum or plasma alanine aminotransferase 6 U/L Unknown Unknown F measurement (enzymatic activity/volume) (test code = 1742-6) Ordering Physician UnknownSerum or plasma albumin/globulin mass davil0834-95-97 14:12:00Identifier 1759-0 Result Time 2019-07-16 14:12:00Unknown Test [...] Ordering Physician UnknownBilirubin.indirect [Mass/volume] in Serum or Wohezt9033-32-03 14:12:00Identifier 1970-04 Result Time 2019-07-16 14:12: 00Unknown [...] (mass/volume) (test code = 1975-2) Ordering Physician UnknownPCO2 etgygj1459-16-68 14:12:00Identifier 2020-07 Result Time 2019-07-16 14:12:00Unknown Test Item Value Reference Range Comments PCO2 venous (test code = 2020-07) 45 mmHg Unknown Unknown F Ordering Physician UnknownSerum or plasma high density lipoprotein (HDL) cholesterol amztwjrpjcc7301-91-52 14:12:00Identifier 2084-12 Result Time 14:12:00Unknown Test Item Value Reference Range Comments Serum or plasma high density lipoprotein 26.2 mg/dL Unknown Unknown F (HDL) cholesterol measurement (test code = 2084-) Ordering Physician UnknownSerum or plasma low density [...] (test code = 2571-8) Ordering Physician UnknownPO2 dldquy2940-81-81 14:12:00Identifier 2705-2 Result Time 2019-07-16 14:12:00Unknown Test Item Value Reference Range Comments PO2 venous (test code = 2705-2) 39.0 mmHg Unknown Unknown F Ordering Physician UnknownVenous blood pH sdyuwclolkc0758-77-49 14:12: 00Identifier 2746-6 Result Time 2019-07-16 14:12:00Unknown [...] natriuretic peptide B measurement ( mass/volume)2019-07-16 14:12:00Identifier 07330-4 Result Time 2019-07-16 14:12: 00Unknown Test Item Value Reference Range Comments Serum or plasma natriuretic peptide B 849 pg/mL Unknown Unknown F measurement (mass/volume) (test code = 18374-8) Ordering Physician UnknownVenous blood oxygen saturation calculated from oxygen partial evmabgnr0490-22-15 14:12:00Identifier 28749-4 Result Time 2019-07-16 14: 12:00Unknown Test Item Value Reference Range Comments Venous blood oxygen saturation calculated 66.2 % Unknown Unknown F from oxygen partial pressure (test code = 42050-2) Ordering Physician UnknownSerum or plasma albumin measurement by bromocresol green (BCG) dye binding method ([id number] 14:12:00Identifier 00068-3 Result Time 2019-07-16 14:12:00Unknown Test Item Value Reference Range Comments Serum or plasma albumin measurement by 3.7 g/dL Unknown Unknown F bromocresol green (BCG) dye binding method (ma (test code = 47179-5) Ordering Physician UnknownSerum or plasma alkaline phosphatase measurement ( enzymatic activity/volume)2019-07-16 14:12:00Identifier 6768-6 Result Time 07-15 14:12:00Unknown Test Item Value Reference Range Comments Serum or plasma alkaline phosphatase 69 U/L Unknown Unknown F measurement (enzymatic activity/volume) (test code = 6768-6) Ordering Physician UnknownInfluenza virus A RNA detection by probe and target amplification gzgjed8190-15-95 13:18:00Identifier 68660-3 Result Time 13:18:00Unknown Test Item Value Reference Range Comments Influenza virus A RNA detection by probe Negative Unknown Unknown F and target amplification method (test code = 88343-9) Ordering Physician UnknownInfluenza virus B RNA detection by probe and target amplification rzdsxs6378-67-21 13:18:00Identifier 02446-9 Result Time 13:18:00Unknown Test Item Value Reference Range Comments Influenza virus B RNA detection by probe Negative Unknown Unknown F and target amplification method (test code = 86480-5) Ordering Physician Unknown
--- OUTSIDE RECORDS SUMMARY | 2019-08-06 13:52 | XMS REPORT | Continuity of Care Document ---
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 [...] Frye M.D. 08/06/2017 1 Unit Injection Injection Kongabotulinumtoxin Sergio Frye M.D. 08/28/2016 1 Unit Injection Injection Kongabotulinumfuentesxin Sergio Frye M.D. 08/28/2016 1 Unit Injection Injection Kongabotulinumfuentesxin Sergio Frye M.D. 08/28/2016 1 Unit Injection Injection Kongabotulinumfuentesxin Sergio Frye M.D. 05/30/2016 1 Unit Injection Injection Whitneyotulinumfuentesxin Sergio Frye M.D. 02/26/2016 1 Unit Injection Injection Whitneyotulinumfuentesxin Sergio Frye M.D. 06/27/2015 1 Unit Injection Injection WhitneyotulinumSergio Johnson M.D. 03/08/2015 1 Unit Injection Injection Sergio Smith M.D. 12/06/2014 1 Unit Injection Injection WhitneyotSergio Manning M.D. 08/23/2014 1 Unit Injection Injection Onabotulinumfuentesxin ASergio M.D. 05/24/2014 1 Unit Injection Injection Onabotulinumtoxin Sergio Frye M.D. 02/16/2014 1 Unit Injection Injection Onabotulinumtoxin Sergio Frye M.D. 11/09/2013 1 Unit Injection Injection Onabotulinumtoxin Sergio Frye M.D. 08/10/2013 1 Unit Injection Injection Onabotulinumfuentesxin Sergio Frye M.D. 05/12/2013 1 Unit Injection Injection Onabotulinumtoxin Sergio Frye M.D. 02/09/2013 1 Unit Injection Injection Onabotulinumfuentesxin Sergio Frye M.D. 11/03/2012 1 Unit Injection Injection Onabotulinumfuentesxin Sergio Frye M.D. 07/29/2012 1 Unit Injection Injection Kongabotulinumfuentesxin Sergio Frye M.D. 07/29/2012 1 Unit Injection Injection Onabotulinumfuentesxin Sergio Frye M.D. 04/28/2012 1 Unit Injection Injection Onabotulinumfuentesxin Sergio Frye M.D. 04/28/2012 1 Unit Injection Injection Onabotulinumtoxin Sergio Frye M.D. 01/22/2012 1 Unit Injection Injection Onabotulinumtoxin Sergio Frye M.D. 01/22/2012 1 Unit Injection Immunizations CPT Code Status Date Vaccine Lot # [id number] Given 02/26/2016 Influ Virus Vaccine, Quadrivalent, Split Virus, Im [id number] Fluzone not PF [id number] Given 02/20/2015 Fluvirin [...] Available Procedures Date Code Description Status 03/04/2019 34125 EKG, Interpretation Only Completed 03/04/2019 98251 Thoracentesis W/ Img Guidance Completed 04/09/2001 [id number] Diabetic Retinal Eye Exam Completed Medical Devices Description No Information Available Encounters Type Date Location Provider Dx Diagnosis Office Visit 07/17/2019 [facility] Davis Prabhakar, J96.21 Acute and chronic 8:15a Assoc,pc PA respiratory Hospitalists failure with hypoxia I50.9 Heart failure, unspecified I48.91 Unspecified atrial fibrillation D64.9 Anemia, unspecified Office Visit 07/16/2019 [facility] Carolann Olivier, N17.9 Acute kidney 8:14a Assoc,pc FI[employer] failure, Hospitalists unspecified J44.1 Chronic obstructive pulmonary disease w (acute) exacerbation I50.9 Heart failure, unspecified D64.9 Anemia, unspecified I48.91 Unspecified atrial fibrillation Office Visit 03/12/2019 [facility] Antoinette I11.0 Hypertensive heart 9:24a Assoc,nisha Lafleur PA-C disease with heart Hospitalists failure R09.02 Hypoxemia I50.9 Heart failure, unspecified R40.0 Somnolence J44.9 Chronic obstructive pulmonary disease, unspecified Office Visit 03/09/2019 9:22a [facility] Odette Fischer, R40.0 Somnolence Assoc,pc PA Hospitalists J96.20 Acute and chr resp failure, unsp w hypoxia or hypercapnia I48.91 Unspecified atrial fibrillation R33.9 Retention of urine, unspecified J44.9 Chronic obstructive pulmonary disease, unspecified Office Visit 03/08/2019 [facility] Cale Parham I11.0 Hypertensive heart 8:53a Assoc,nisha Pardo M.D.,FACP disease with heart Hospitalists failure I50.33 Acute on chronic diastolic (congestive) heart failure I48.91 Unspecified atrial fibrillation J90 Pleural effusion, not elsewhere classified R33.9 Retention of urine, unspecified J96.91 Respiratory failure, unspecified with hypoxia Office Visit 03/07/2019 8:53a [facility] Elliot Polanco, J96.21 Acute and chronic nisha Martínez MD respiratory Hospitalists failure with hypoxia I50.9 Heart failure, unspecified R33.9 Retention of urine, unspecified Office Visit 03/06/2019 8:52a [facility] Elliot Polanco, R33.9 Retention of nisha Martínez MD urine, unspecified Hospitalists I11.0 Hypertensive heart disease with heart failure I50.33 Acute on chronic diastolic (congestive) heart failure Office Visit 03/05/2019 3:45p Pulmonology And Kathy J90 Pleural effusion, [facility] MD Norma not elsewhere [place] Vessel Pilot classified J96.91 Respiratory failure, unspecified with hypoxia J44.9 Chronic obstructive pulmonary disease, unspecified Office Visit 03/05/2019 8:52a Merrill Elliot Polanco, R33.9 Retention of nisha Martínez MD urine, unspecified Hospitalists I11.0 Hypertensive heart disease with heart failure I50.33 Acute on chronic diastolic (congestive) heart failure Office Visit 03/04/2019 8:52a Merr[facility] Elliot Polanco, R33.9 Retention of nisha Martínez MD urine, unspecified Hospitalists I11.0 Hypertensive heart disease with heart failure I50.33 Acute on chronic diastolic (congestive) heart failure J90 Pleural effusion, not elsewhere classified Office Visit 03/04/2019 1:24p Pulmonology And Kathy J90 Pleural effusion, [facility] MD Norma not elsewhere [place] Vessel Pilot classified Office Visit 03/03/2019 1:23p Pulmonology And Kathy J90 Pleural effusion, [facility] MD Norma not elsewhere [place] Vessel Pilot classified Office Visit 03/03/2019 8:51a [facility] Elliot Polanco MD R33.9 Retention of Assoc,nisha urine, Hospitalists unspecified I11.0 Hypertensive heart disease with heart failure I50.33 Acute on chronic diastolic (congestive) heart failure J90 Pleural effusion, not elsewhere classified Office Visit 03/02/2019 8:51a Merrill Elliot Polanco, J96.91 Respiratory Assocnisha MD failure, Hospitalists unspecified with hypoxia I11.0 Hypertensive heart disease with heart failure J90 Pleural effusion, not elsewhere classified Office Visit 03/01/2019 8:51a Merrill Elliot Polanco, R33.9 Retention of Assocnisha MD urine, unspecified Hospitalists J96.91 Respiratory failure, unspecified with hypoxia I11.0 Hypertensive heart disease with heart failure I48.91 Unspecified atrial fibrillation Office Visit 02/28/2019 8:50a [facility] Robinson I11.0 Hypertensive heart Assocnisha M.D. disease with heart Hospitalists failure I50.33 Acute on chronic diastolic (congestive) heart failure J90 Pleural effusion, not elsewhere classified M25.569 Pain in unspecified knee Office Visit 02/27/2019 8:50a [facility] Robinson I11.0 Hypertensive heart Assocnisha M.D. disease with heart Hospitalists failure I50.33 Acute on chronic diastolic (congestive) heart failure J90 Pleural effusion, not elsewhere classified E11.9 Type 2 diabetes mellitus without complications M25.569 Pain in unspecified knee Office Visit 02/26/2019 8:49a [facility] Asia I11.0 Hypertensive heart Assnisha munoz MD disease with heart Hospitalists failure I50.33 Acute on chronic diastolic (congestive) heart failure R09.02 Hypoxemia Office Visit 02/25/2019 8:49a [facility] Robinson J96.91 Respiratory Assocnisha M.D. failure, Hospitalists unspecified with hypoxia I95.89 Other hypotension I11.0 Hypertensive heart disease with heart failure I50.33 Acute on chronic diastolic (congestive) heart failure J90 Pleural effusion, not elsewhere classified Office Visit 02/24/2019 8:49a [facility] Robinson J96.91 Respiratory Assocnisha M.D. failure, Hospitalists unspecified with hypoxia I11.0 Hypertensive heart disease with heart failure I50.33 Acute on chronic diastolic (congestive) heart failure I95.9 Hypotension, unspecified I48.91 Unspecified atrial fibrillation J90 Pleural effusion, not elsewhere classified N39.0 Urinary tract infection, site not specified M25.569 Pain in unspecified knee Office Visit 02/23/2019 [facility] Antoinette I48.91 Unspecified atrial 8:48a Assnisha munoz PA-C fibrillation Hospitalists M25.562 Pain in left [...] exacerbation 07/16/2019 I50.9 Heart failure, unspecified Carolann RodriguezAdrianna, FI[employer]ER 07/16/2019 D64.9 Anemia, unspecified Carolann RodriguezAdrianna, FI[employer] SC[employer]ER 07/16/2019 I48.91 Unspecified atrial fibrillation Carolann RodriguezAdrianna, FI[employer] SC[employer]ER 03/12/2019 I11.0 Hypertensive heart disease with heart [...] unspecified Antoinette O'giovanna, PA-C 03/09/2019 R40.0 Somnolence Odette Fischer, PA 03/09/2019 J96.20 Acute and chronic respiratory Odette Fischer PA failure, unspecified whether with hypoxia or hypercapnia 03/09/2019 I48.91 Unspecified atrial fibrillation CHING Sesay 03/09/2019 R33.9 Retention of urine, unspecified CHING Sesay 03/09/2019 J44.9 Chronic obstructive pulmonary CHING Sesay disease, unspecified 03/08/2019 I11.0 Hypertensive heart disease [...]
--- OUTSIDE RECORDS SUMMARY | 2019-08-06 13:52 | XMS REPORT ---
:1945 Author Organization [facility] Care Team Providers Name Role Phone Unavailable Unavailable Unavailable Problems Condition Condition Condition Status Onset Resolution Last Treating Comments Name Details Category Date Date Treatment Clinician Date Acute Acute Diagnosis Active Chante pulmonary pulmonary 3- Carrier RN edema edema Respiratory lung Respiratory Active Kaila sounds 07-15 [place] deficit 10:30: [id number] Allergies, Adverse Reactions, Alerts Allergy Allergy Status Severity Reaction(s) Onset Inactive Treating Comments Name Type Date Date Clinician Tomato Unknown Active Unknown Reaction 2017-04 Amira Suazo Unknown -03 Jonnathan [id number] Medications Ordered Filled Start Stop Current Ordering [...]
--- OUTSIDE RECORDS SUMMARY | 2019-08-06 13:52 | XMS REPORT ---
:1945 Author Organization [facility] Care Team Providers Name Role Phone Unavailable Unavailable Unavailable Problems Condition Condition Condition Status Onset Resolution Last Treating Comments Name Details Category Date Date Treatment Clinician Date Heart Heart Diagnosis Active Carolann failure, failure, 3-30 Wendela unspecified unspecified [id number] Allergies, Adverse Reactions, Alerts Allergy Allergy Status [...] oral powder powder packet packet ipratropium ipratropium 2019- Yes Unknown Unknown Unknown 0.5 0.5 1-10 mg-albutero mg-albutero L 3 mg (2.5 L 3 mg (2.5 mg base)/3 mg base)/3 mL mL nebulizatio nebulizatio n soln n soln Umeclidin/V Umeclidin/V 2019- Yes Unknown Unknown Unknown ilant 62.5 ilant 62.5 1-10 Mdi(Nf) Mdi(Nf) nicotine 7 nicotine 7 2019- Yes Unknown Unknown Unknown mg/24hr TD mg/24hr TD 07-15 tdsy tdsy citalopram citalopram 2019- Yes Unknown Unknown Unknown 10 mg 10 mg 07-15 tablet tablet metOLazone metOLazone Yes Unknown Unknown Unknown 5 mg tablet 5 mg tablet 07-15 Albuterol Albuterol 2019-0 Yes Unknown Unknown Unknown Hfa Hfa 07-15 Inhaler* Inhaler* Acetaminoph Acetaminoph Yes Unknown Unknown Unknown en en 07-15 [...] Serum or plasma calcium 2019-07-19 10:45:00 Identifier 37176-5 Result Unknown measurement (mass/volume) Time 2019-07-19 10:45:00 Test Item Value Reference Range Comments Serum or plasma calcium measurement (mass/volume) (test 10.0 mg/dL Unknown Unknown F code = 79461-3) Ordering Physician UnknownSerum or plasma magnesium measurement (mass/volume) 2019-07-19 10:45:00Identifier 63009-7 Result Time 2019-07-19 10:45:00Unknown Test Item Value Reference Range Comments Serum or plasma magnesium measurement 1.9 mg/dL Unknown Unknown F (mass/volume) (test code = 25844-5) Ordering Physician UnknownSerum or plasma carbon dioxide, [...] Ordering Physician UnknownSerum or plasma urea nitrogen/creatinine gdnud5761-83- 30 10:45:00Identifier 3097-3 Result Time 2019-07-19 10:45:00Unknown Test Item Value Reference Range Comments Serum or plasma urea nitrogen/creatinine 30.7 Unknown Unknown F ratio (test code = 3097-3) Ordering Physician UnknownAutomated blood platelet mean volume ubccesclirb7737- 03-30 10:45:00Identifier 10757-8 Result Time 2019-07-19 10:45:00Unknown Test Item Value Reference Range Comments Automated blood platelet mean volume 7.4 fL Unknown Unknown F measurement (test code = 99089-6) Ordering Physician UnknownSerum or plasma anion adt9144-88-44 10:45: 00Identifier 01100-6 Result Time 2019-07-19 10:45:00Unknown Test Item Value Reference Range Comments Serum or plasma anion gap (test code = 10 mmol/L Unknown Unknown F 92107-6) Ordering Physician UnknownAutomated blood leukocytes count corrected for nucleated erythrocytes (number/volume)2019-07-19 10:45:00Identifier 65614-3 Result Time 2019-07-19 10:45:00Unknown Test Item Value Reference Range Comments Automated blood leukocytes count 7.9 10^3/uL Unknown Unknown F corrected for nucleated erythrocytes (number/volume) (test code = 73606-5) Ordering Physician UnknownAutomated blood nucleated erythrocytes obtdetqtv2026- 03-30 10:45:00Identifier 74735-9 Result Time 2019-07-19 10:45:00Unknown Test Item Value Reference Range Comments Automated blood nucleated erythrocytes 0.1 Unknown Unknown F detection (test code = 91135-7) Ordering Physician UnknownAutomated blood hematocrit (percentage)2019-07-19 10: 45:00Identifier 4544-3 Result Time 2019-07-19 10:45:00Unknown Test Item Value Reference Range Comments Automated blood hematocrit (percentage) (test 33 % Unknown Unknown F code = 4544-3) Ordering Physician UnknownEstimated glomerular filtration rate (GFR) non- Wtxoedfl0290-52-65 10:45:00Identifier 50977-1 Result Time 2019-07-19 10: 45:00Unknown Test Item Value Reference Range Comments Estimated glomerular filtration rate (GFR) 41.2 Unknown Unknown F non- (test code = 57360-6) Ordering Physician UnknownAutomated blood monocytes/100 wqcnynfpqj0807-58-29 10: 45:00Identifier 5905-5 Result Time 2019-07-19 10:45:00Unknown [...] = 704-7) Ordering Physician UnknownAutomated blood basophils/100 chfxpdjptn5257-97-90 10: 45:00Identifier 706-2 Result Time 2019-07-19 10:45:00Unknown [...] = 711-2) Ordering Physician UnknownAutomated blood eosinophils/100 vboaacfwdf7656-85-76 10:45:00Identifier 713-8 Result Time 2019-07-19 10:45:00Unknown Test [...] = 731-0) Ordering Physician UnknownAutomated blood lymphocytes/100 xeeuolofiv3275-85-42 10:45:00Identifier 736-9 Result Time 2019-07-19 10:45:00Unknown Test Item Value Reference Range Comments Automated blood lymphocytes/100 leukocytes 3.0 % Unknown Unknown F (test code = 736-9) Ordering Physician UnknownBlood monocytes automated count (number/volume)2019-06 10:45:00Identifier 742-7 Result Time 2019-07-19 10:45:00Unknown Test Item Value Reference Range Comments Blood monocytes automated count 0.4 10^3/ul Unknown Unknown F (number/volume) (test code = 742-7) Ordering Physician UnknownAutomated blood neutrophils/100 goynlshbnx9109-10-25 10:45:00Identifier 770-8 Result Time 2019-07-19 10:45:00Unknown Test [...] UnknownAutomated erythrocyte mean corpuscular hemoglobin concentration measurement (mass/hvg9666-89-41 10:45:00Identifier 786-4 Result Time 2019-07-19 10:45:00Unknown Test Item Value Reference Range Comments Automated erythrocyte mean corpuscular 33 g/dL Unknown Unknown F hemoglobin concentration measurement (mass/vol (test code = 786-4) Ordering Physician UnknownAutomated erythrocyte mean corpuscular cbsrsr2226-19- 30 10:45:00Identifier 787-2 Result Time 2019-07-19 10:45:00Unknown Test Item Value Reference Range Comments Automated erythrocyte mean corpuscular volume 91 fL Unknown Unknown F (test code = 787-2) Ordering Physician UnknownAutomated erythrocyte distribution width fljvv2089-84- 30 10:45:00Identifier 788-0 Result Time 2019-07-19 10:45:00Unknown [...] code = 789-8) Ordering Physician UnknownLymphocyte proliferation wjpi1277-10-64 10:45: 00Identifier BHJ1567 Result Time 2019-07-19 10:45:00Unknown Test Item Value Reference Range Comments Lymphocyte proliferation test (test 7.1 10^3/ul Unknown Unknown F code = RKM8980) Ordering Physician UnknownUrine urobilinogen measurement (units/volume) by test maaam5943-47-46 12:30:00Identifier 82137-1 Result Time 2019-07-17 12:30: 00Unknown Test Item Value Reference Range Comments Urine urobilinogen measurement Negative Unknown Unknown F (units/volume) by test strip (test code = 32088-1) Ordering Physician UnknownUrine bacteria detection by automated obmaii6549-69- 28 12:30:00Identifier 86784-6 Result Time 2019-07-17 12:30:00Unknown Test Item Value Reference Range Comments Urine bacteria detection by automated Absent Unknown Unknown F method (test code = 06379-5) Ordering Physician UnknownUrine total bilirubin detection by automated test hcrkb2126-01-77 12:30:00Identifier 45751-2 Result Time 2019-07-17 12:30: 00Unknown Test Item Value Reference Range Comments Urine total bilirubin detection by Negative Unknown Unknown F automated test strip (test code = 36119-2) Ordering Physician UnknownUrine clarity by refractometry ahrfuldtm2835-83-47 12: 30:00Identifier 63154-2 Result Time 2019-07-17 12:30:00Unknown Test Item Value Reference Range Comments Urine clarity by refractometry automated Cloudy Unknown Unknown F (test code = 56300-0) Ordering Physician UnknownColor of Urine by Jbpr6503-28-68 12:30:00Identifier 08663-4 Result Time 2019-07-17 12:30:00Unknown Test Item Value Reference Range Comments Color of Urine by Auto (test code = Yellow Unknown Unknown F 13469-3) Ordering Physician UnknownUrine glucose detection by automated test mrkyl6260-25 -28 12:30:00Identifier 95715-2 Result Time 2019-07-17 12:30:00Unknown Test Item Value Reference Range Comments Urine glucose detection by automated test Negative Unknown Unknown F strip (test code = 72137-6) Ordering Physician UnknownKetones [Mass/volume] in Urine by Automated test wkzbb1340-45-56 12:30:00Identifier 81421-5 Result Time 2019-07-17 12:30: 00Unknown Test Item Value Reference Range Comments Ketones [Mass/volume] in Urine by Negative Unknown Unknown F Automated test strip (test code = 02978-6) Ordering Physician UnknownUrine nitrite detection by automated test ofmln1255-88 -28 12:30:00Identifier 27569-8 Result Time 2019-07-17 12:30:00Unknown Test Item Value Reference Range Comments Urine nitrite detection by automated test Positive Unknown Unknown F strip (test code = 84695-8) Ordering Physician UnknownProtein [Mass/volume] in Urine by Automated test puhwr2032-54-33 12:30:00Identifier 65719-3 Result Time 2019-07-17 12:30: 00Unknown Test Item Value Reference Range Comments Protein [Mass/volume] in Urine by Negative Unknown Unknown F Automated test strip (test code = 32572-8) Ordering Physician UnknownSpecific gravity of Urine by Refractometry iqrfsfggl5896-46-67 12:30:00Identifier 91317-5 Result Time 2019-07-17 12:30: 00Unknown Test Item Value Reference Range Comments Specific gravity of Urine by Refractometry 1.009 Unknown Unknown F automated (test code = 84348-5) Ordering Physician UnknownUrine erythrocytes detection by automated ibtolv872607-16 12:30:00Identifier 30771-5 Result Time 2019-07-17 12:30:00Unknown Test Item Value Reference Range Comments Urine erythrocytes detection by 3+(>10/hpf) Unknown Unknown F automated method (test code = 99675-8) Ordering Physician UnknownUrine leukocytes detection by automated ehxecd0103-13- 28 12:30:00Identifier 88093-6 Result Time 2019-07-17 12:30:00Unknown Test Item Value Reference Range Comments Urine leukocytes detection by 3+(>20/hpf) Unknown Unknown F automated method (test code = 72357-3) Ordering Physician UnknownUrine hemoglobin detection by test fylgm2130-39-35 12: 30:00Identifier 5794-3 Result Time 2019-07-17 12:30:00Unknown Test Item Value Reference Range Comments Urine hemoglobin detection by test strip (test 3+ Unknown Unknown F code = 5794-3) Ordering Physician UnknownUrine leukocyte esterase detection by automated test hgkww2742-80-70 12:30:00Identifier 47937-3 Result Time 2019-07-17 12:30: 00Unknown Test Item Value Reference Range Comments Urine leukocyte esterase detection by automated 3+ Unknown Unknown F test strip (test code = 24516-2) Ordering Physician UnknownSerum or plasma vitamin B12 [...] plasma troponin i.cardiac measurement (mass/ volume)2019-07-16 21:08:00Identifier 71637-6 Result Time 2019-07-16 21:08: 00Unknown Test Item Value Reference Range Comments Serum or plasma troponin i.cardiac 0.37 ng/mL Unknown Unknown F measurement (mass/volume) (test code = 62270-1) Ordering Physician UnknownSerum or plasma alanine aminotransferase measurement ( enzymatic activity/volume)2019-07-16 14:12:00Identifier 1742-6 Result Time 07-15 14:12:00Unknown Test Item Value Reference Range Comments Serum or plasma alanine aminotransferase 6 U/L Unknown Unknown F measurement (enzymatic activity/volume) (test code = 1742-6) Ordering Physician UnknownSerum or plasma albumin/globulin mass umwiy3666-78-32 14:12:00Identifier 1759-0 Result Time 2019-07-16 14:12:00Unknown Test [...] Ordering Physician UnknownBilirubin.indirect [Mass/volume] in Serum or Uuasoi7503-94-52 14:12:00Identifier 1970-04 Result Time 2019-07-16 14:12: 00Unknown [...] (test code = 1974-05) Ordering Physician UnknownPCO2 lakumg2539-16-57 14:12:00Identifier 2020-07 Result Time 2019-07-16 14:12:00Unknown Test Item Value Reference Range Comments PCO2 venous (test code = 2020-07) 45 mmHg Unknown Unknown F Ordering Physician UnknownSerum or plasma high density lipoprotein (HDL) cholesterol dvltpxtyjzk7272-13-63 14:12:00Identifier 2084-12 Result Time 14:12:00Unknown Test Item [...] (test code = 2571-8) Ordering Physician UnknownPO2 zuqfmr9330-22-88 14:12:00Identifier 2704-2 Result Time 2019-07-16 14:12:00Unknown Test Item Value Reference Range Comments PO2 venous (test code = 2705-2) 39.0 mmHg Unknown Unknown F Ordering Physician UnknownVenous blood pH kvywropkogp2266-64-89 14:12: 00Identifier 2746-6 Result Time 2019-07-16 14:12:00Unknown [...] natriuretic peptide B measurement ( mass/volume)2019-07-16 14:12:00Identifier 48549-4 Result Time 2019-07-16 14:12: 00Unknown Test Item Value Reference Range Comments Serum or plasma natriuretic peptide B 849 pg/mL Unknown Unknown F measurement (mass/volume) (test code = 25026-9) Ordering Physician UnknownVenous blood oxygen saturation calculated from oxygen partial hanjayqa6549-78-55 14:12:00Identifier 36525-5 Result Time 2019-07-16 14: 12:00Unknown Test Item Value Reference Range Comments Venous blood oxygen saturation calculated 66.2 % Unknown Unknown F from oxygen partial pressure (test code = 34485-2) Ordering Physician UnknownSerum or plasma albumin measurement by bromocresol green (BCG) dye binding method (uj0303-51-53 14:12:00Identifier 77585-6 Result Time 2019-07-16 14:12:00Unknown Test Item Value Reference Range Comments Serum or plasma albumin measurement by 3.7 g/dL Unknown Unknown F bromocresol green (BCG) dye binding method (ma (test code = 14542-2) Ordering Physician UnknownSerum or plasma alkaline phosphatase measurement ( enzymatic activity/volume)2019-07-16 14:12:00Identifier 6768-6 Result Time 07-15 14:12:00Unknown Test Item Value Reference Range Comments Serum or plasma alkaline phosphatase 69 U/L Unknown Unknown F measurement (enzymatic activity/volume) (test code = 6768-6) Ordering Physician UnknownInfluenza virus A RNA detection by probe and target amplification hxxlli6926-30-75 13:18:00Identifier 83988-7 Result Time 13:18:00Unknown Test Item Value Reference Range Comments Influenza virus A RNA detection by probe Negative Unknown Unknown F and target amplification method (test code = 43258-6) Ordering Physician UnknownInfluenza virus B RNA detection by probe and target amplification ibkdlc7964-08-14 13:18:00Identifier 38896-2 Result Time 13:18:00Unknown Test Item Value Reference Range Comments Influenza virus B RNA detection by probe Negative Unknown Unknown F and target amplification method (test code = 98555-2) Ordering Physician Unknown
--- OUTSIDE RECORDS SUMMARY | 2019-08-06 13:52 | XMS REPORT | Continuity of Care Document ---
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 Onset: 05/05/2013 Tobacco user Kathy Geren MD Onset: 12/20/2014 Disturbance in sleep behavior [...] Unknown ETOH Use Drinks Alcoholic Beverages at [place] Rarely Tobacco Use Start: Unknown Patient is [...] CPT Code Status Date Vaccine Lot # 30035 Given 02/26/2016 Influ Virus Vaccine, Quadrivalent, Split Virus, Im [id number] Fluzone not PF [id number] Given 02/20/2015 Fluvirin [...] Available Procedures Date Code Description Status 03/04/2019 19667 EKG, Interpretation Only Completed 03/04/2019 66242 Thoracentesis W/ Img Guidance Completed 04/09/2001 [id number] Diabetic Retinal Eye Exam Completed Medical Devices Description No Information Available Encounters Type Date Location Provider Dx Diagnosis Office Visit 07/20/2019 [facility] [place] Prabhakar, N39.0 Urinary tract 8:16a [...] agents ruled out Office Visit 07/19/2019 8:16a [facility] [place] J96.21 Acute and chronic Assoc,CHING Bender respiratory Hospitalists failure with hypoxia N39.0 Urinary tract infection, site not specified T83.511A I/I react d/t indwelling urethral catheter, init F32.9 Major depressive disorder, single episode, unspecified Office Visit 07/18/2019 8:15a [facility] [place] J96.21 Acute and chronic Assoc,CHING Bender respiratory Hospitalists failure with hypoxia D64.9 Anemia, unspecified N39.0 Urinary tract infection, site not specified T83.511A I/I react d/t indwelling urethral catheter, init Office Visit 07/17/2019 8:15a [facility] [place] J96.21 Acute and chronic Assoc,CHING Bender respiratory Hospitalists failure with hypoxia I50.9 Heart failure, unspecified I48.91 Unspecified atrial fibrillation D64.9 Anemia, unspecified Office Visit 07/16/2019 [facility] Carolann Olivier, N17.9 Acute kidney 8:14a Assoc,pc [employer]IN EQUIPMENT SUPERVISOR failure, Hospitalists unspecified J44.1 Chronic obstructive pulmonary disease w (acute) exacerbation I50.9 Heart failure, unspecified D64.9 Anemia, unspecified I48.91 Unspecified atrial fibrillation Office Visit 03/12/2019 [facility] Antoinette I11.0 Hypertensive heart 9:24a Assoc,CHING Hernandez-Sharif disease with heart Hospitalists failure R09.02 Hypoxemia I50.9 Heart failure, unspecified R40.0 Somnolence J44.9 Chronic obstructive pulmonary disease, unspecified Office Visit 03/09/2019 9:22a [facility] Odettetony Fischer, R40.0 Somnolence Assoc,nisha FLOWER Hospitalists J96.20 Acute and chr resp failure, unsp w hypoxia or hypercapnia I48.91 Unspecified atrial fibrillation R33.9 Retention of urine, unspecified J44.9 Chronic obstructive pulmonary disease, unspecified Office Visit 03/08/2019 [facility] Cale Parham I11.0 Hypertensive heart 8:53a Assnisha munoz M.D.,FACP disease with heart Hospitalists failure I50.33 Acute on chronic diastolic (congestive) heart failure I48.91 Unspecified atrial fibrillation J90 Pleural effusion, not elsewhere classified R33.9 Retention of urine, unspecified J96.91 Respiratory failure, unspecified with hypoxia Office Visit 03/07/2019 8:53a [facility] Juanis Polanco, J96.21 Acute and chronic nisha Martínez MD respiratory Hospitalists failure with hypoxia I50.9 Heart failure, unspecified R33.9 Retention of urine, unspecified Office Visit 03/06/2019 8:52a [facility] Juanis Polanco, R33.9 Retention of nisha Martínez MD urine, unspecified Hospitalists I11.0 Hypertensive heart disease with heart failure I50.33 Acute on chronic diastolic (congestive) heart failure Office Visit 03/05/2019 3:45p Pulmonology And Kathy J90 Pleural effusion, [facility] MD Norma not elsewhere Warm In classified J96.91 Respiratory failure, unspecified with hypoxia J44.9 Chronic obstructive pulmonary disease, unspecified Office Visit 03/05/2019 8:52a [facility] Juanis Diledith, R33.9 Retention of nisha Martínez MD urine, unspecified Hospitalists I11.0 Hypertensive heart disease with heart failure I50.33 Acute on chronic diastolic (congestive) heart failure Office Visit 03/04/2019 1:24p Pulmonology And Kathy J90 Pleural effusion, [facility] Services [facility] MD Norma not elsewhere Warm In classified Office Visit 03/04/2019 8:52a [place] Elliot Polanco MD R33.9 Retention of Assoc,pc urine, Hospitalists unspecified I11.0 Hypertensive heart disease with heart failure I50.33 Acute on chronic diastolic (congestive) heart failure J90 Pleural effusion, not elsewhere classified Office Visit 03/03/2019 8:51a [place] Elliot Polanco, R33.9 Retention of Assocnisha MD urine, unspecified Hospitalists I11.0 Hypertensive heart disease with heart failure I50.33 Acute on chronic diastolic (congestive) heart failure J90 Pleural effusion, not elsewhere classified Office Visit 03/03/2019 1:23p Pulmonology And Kathy J90 Pleural effusion, Sleep Services Of MD Norma not elsewhere Warm In classified Office Visit 03/02/2019 8:51a [place] Elliot Polanco MD J96.91 Respiratory Assoc,pc failure, Hospitalists unspecified with hypoxia I11.0 Hypertensive heart disease with heart failure J90 Pleural effusion, not elsewhere classified Office Visit 03/01/2019 8:51a [place] Elliot Polanco, R33.9 Retention of nisha Martínez MD urine, unspecified Hospitalists J96.91 Respiratory failure, unspecified with hypoxia I11.0 Hypertensive heart disease with heart failure I48.91 Unspecified atrial fibrillation Office Visit 02/28/2019 8:50a [facility] [place] I11.0 Hypertensive heart Assoc,nisha Lynch M.D. disease with heart Hospitalists failure I50.33 Acute on chronic diastolic (congestive) heart failure J90 Pleural effusion, not elsewhere classified M25.569 Pain in unspecified knee Office Visit 02/27/2019 8:50a [facility] [place] I11.0 Hypertensive heart Assoc,nisha Lynch M.D. disease with heart Hospitalists failure I50.33 Acute on chronic diastolic (congestive) heart failure J90 Pleural effusion, not elsewhere classified E11.9 Type 2 diabetes mellitus without complications M25.569 Pain in unspecified knee Office Visit 02/26/2019 8:49a [facility] [place] I11.0 Hypertensive heart Assoc,nisha Avendano MD disease with heart Hospitalists failure I50.33 Acute on chronic diastolic (congestive) heart failure R09.02 Hypoxemia Office Visit 02/25/2019 8:49a [facility] [place] J96.91 Respiratory Assocnisha M.D. failure, Hospitalists unspecified with hypoxia I95.89 Other hypotension I11.0 Hypertensive heart disease with heart failure I50.33 Acute on chronic diastolic (congestive) heart failure J90 Pleural effusion, not elsewhere classified Office Visit 02/24/2019 8:49a [facility] [place] J96.91 Respiratory Assocnisha M.D. failure, Hospitalists unspecified with hypoxia I11.0 Hypertensive heart disease with heart failure I50.33 Acute on chronic diastolic (congestive) heart failure I95.9 Hypotension, unspecified I48.91 Unspecified atrial fibrillation J90 Pleural effusion, not elsewhere classified N39.0 Urinary tract infection, site not specified M25.569 Pain in unspecified knee Office Visit 02/23/2019 [facility] Antoinette I48.91 Unspecified atrial 8:48a Assoc,nisha [...] N17.9 Acute kidney failure, unspecified Carolann Olivier, CABIN EQUIPMENT SUPERVISOR 07/16/2019 J44.1 Chronic obstructive pulmonary disease Carolann Olivier, BREA with (acute) exacerbation 07/16/2019 I50.9 Heart failure, unspecified Carolann Olivier, CABIN EQUIPMENT SUPERVISOR 07/16/2019 D64.9 Anemia, unspecified Carolann Olivier, CABIN EQUIPMENT SUPERVISOR 07/16/2019 I48.91 Unspecified atrial fibrillation Carolann Olivier, CABIN EQUIPMENT SUPERVISOR 03/12/2019 I11.0 Hypertensive heart disease with heart [...] PA 03/09/2019 J96.20 Acute and chronic respiratory Doette Fischer, PA failure, unspecified whether with hypoxia [...]
[2019-08-06 14:35] LABS: ABS Basophils 0.1 10^3/ul (0-0.2); ABS Eosinophils 0.1 10^3/ul (0-0.6); ABS Lymphocytes 0.6 10^3/ul (1.0-4.8); ABS Monocytes 0.5 10^3/ul (0-0.8); Eosinophil % 1.5 %; Hematocrit 36 % (35-47); Hemoglobin 12.5 g/dL (12.0-16.0); Lymphocyte % 8.3 %; Mean Corpuscular HGB Conc 35 g/dL (31-36); Mean Corpuscular Hemoglobin 33 pg (27-31); Mean Corpuscular Volume 94 fL (80-97); Mean Platelet Volume 7.4 fL (7.4-10.4); Platelet Count 187 10^3/uL (150-450); Red Blood Count 3.83 10^6 /uL (3.70-4.87); Red Cell Distribution Width 22 % (10-15); White Blood Count 7.3 10^3/uL (3.5-10.8)
[2019-08-06 14:47] LABS: Activated Partial Thrombo Time 49.8 seconds (26.0-38.0); INR 3.74 (0.82-1.09)
[2019-08-06 14:53] LABS: ALT 4 U/L (7-52); AST 9 U/L (13-39); Albumin 3.8 g/dL (3.2-5.2); Alkaline Phosphatase 76 U/L (34-104); BUN/Creatinine Ratio 39.2 (8-20); Blood Urea Nitrogen 78 mg/dL (6-24); CO2 Carbon Dioxide 40 mmol/L (22-32); Calcium 9.8 mg/dL (8.6-10.3); Chloride 84 mmol/L (101-111); EGFR African American 29.7 (>60); EGFR Non-African American 24.6 (>60); Globulin 3.7 g/dL (2-4); Glucose 164 mg/dL (70-100); Sodium 134 mmol/L (135-145); Total Protein 7.5 g/dL (6.4-8.9)
[2019-08-06 14:54] LABS: Anion Gap 10 mmol/L (2-11)
[2019-08-06 14:55] LABS: Potassium 2.4 mmol/L (3.5-5.0)
[2019-08-06 14:58] LABS: Troponin I 0.05 ng/mL (<0.03)
[2019-08-06] MEDS ORDERED: NS 0.9% w/ 40 Meq KCL 1000 ML* 1,000 ML IV SCH (15:00)
[2019-08-06 15:06] LABS: Urine Appearance Cloudy; Urine Bilirubin Negative (Negative); Urine Blood 3+ (Negative); Urine Color Yellow; Urine Glucose Negative (Negative); Urine Ketones Negative (Negative); Urine Nitrite Negative (Negative); Urine Protein Negative (Negative); Urine Specific Gravity 1.018 (1.010-1.030); Urine Urobilinogen Negative (Negative)
[2019-08-06 15:15] LABS: Urine Bacteria 2+ (Absent); Urine Red Blood Cell 3+(>10/hpf) (Absent); Urine Squamous Epithelial Cell Present (Absent); Urine White Blood Cell 3+(>20/hpf) (Absent)
[2019-08-06] MEDS ORDERED: Potassium Chlor TAB* 20 MEQ TAB.ER PO ONE (15:42)
[2019-08-06] MEDS ORDERED: cefTRIAXone(*) 1 GM in NS 0.9% 50 ML* 50 ML IVPB ONE (15:43)
[2019-08-06 16:00] LABS: Magnesium 2.1 mg/dL (1.9-2.7)
[2019-08-06] MEDS ORDERED: KCL 20 MEQ/100 ML IVPREMIX* 20 MEQ/100 ML BAG IV SCH (16:00)
[2019-08-06] MEDS ORDERED: Acetaminophen TAB* 325 MG PO PRN (16:18)
[2019-08-06] MEDS ORDERED: NS 0.9% 1000 ML** 1,000 ML IV SCH (16:30)
[2019-08-06] MEDS ORDERED: Calcium Carbonate CHEW TAB* 500 MG (TUMS) PO ONE (17:53)
[2019-08-06] MEDS ORDERED: Calcium Carbonate CHEW TAB* 500 MG (TUMS) PO PRN (17:53)
[2019-08-06] MEDS: Metoprolol Tartrate TAB* 50 mg PO SCH (18:04)
[2019-08-06] MEDS ORDERED: Albuterol 2.5 MG/3 ML NEB.SOL* (0.083%) INH PRN (19:00)
[2019-08-06 20:37] LABS: Troponin I 0.05 ng/mL (<0.03)
[2019-08-06] MEDS ORDERED: Apixaban* 5 MG TAB PO SCH (21:00)
--- NOTE | 2019-08-06 21:03 | HP ---
CC: Dr. Mccarthy* HISTORY AND PHYSICAL: DATE OF ADMISSION: 08/06/19 PROVIDER: Taniya Cohn NP. PRIMARY CARE PROVIDER: Dr. Mccarthy. ATTENDING PHYSICIAN WHILE IN THE HOSPITAL: Dr. Sandy Youssef* (dictated by Taniya Cohn NP). CHIEF COMPLAINT: 1. Fall. 2. Right knee pain. HISTORY OF PRESENT ILLNESS: Ms. Rosado is a 73-year-old female with past medical history significant for heart failure with preserved ejection fraction; atrial fibrillation; COPD, on chronic O2 at 3 L; hypertension; chronic kidney disease, who presented to the emergency room today with complaints of right knee pain after a fall on Friday, inability to bear weight and walk, decreased appetite, not eating and drinking x1 week. The patient was visited today by the home health nurse and was encouraged by her sister and home health nurse to present to the emergency room for evaluation of her right knee due to the increased pain and inability to walk. While in the emergency room, the patient had routine lab work drawn. She was found to have an elevated BUN and creatinine above her baseline and a potassium of 2.4 and lactic acid of 2.4. Due to these findings, Hospital Medicine was asked to see and evaluate the patient for admission. The patient denies any fever or chills, unintended weight loss. She denies any chest pain, edema, cough, hemoptysis or shortness of breath. She reports that her shortness of breath is at baseline. She is requiring her baseline amount of oxygen of 3 L. She denies any nausea, vomiting, diarrhea, gross hematuria, or dysuria. The patient does complain of diffuse abdominal pain and constipation and reports no bowel movement x1 week. She denies any focal weakness or sensory loss. She denies any visual complaints, dysphagia, arthralgias, myalgias, rashes, lesions , open sores, psychosis, or anxiety. Due the patient's inability to ambulate, left knee pain and a potassium of 2.4, Hospital Medicine was asked to see and evaluate her for admission. PAST MEDICAL HISTORY: Significant for: 1. Heart failure with preserved ejection fraction. 2. GERD. 3. Atrial fibrillation, on apixaban. 4. Osteoarthritis. 5. COPD, on chronic oxygen at 3 L. 6. Hypertension. 7. Cataracts. 8. Chronic kidney disease. 9. Cerebral aneurysm, CVA, status post clipping and [employer] shunt. 10. Obstructive sleep apnea. 11. Urinary retention with chronic Jimenez catheter. 12. History of tobacco abuse. 13. Pulmonary hypertension. PAST SURGICAL HISTORY: 1. Spinal surgery. 2. Appendectomy. 3. Cholecystectomy. 4. Hysterectomy. 5. [employer] shunt placement and clipping of cerebral aneurysm. HOME MEDICATIONS: Include: 1. Tramadol 50 mg every 6 hours as needed. 2. MiraLAX as needed for constipation. 3. Omeprazole 20 mg p.o. daily. 4. Albuterol 1 puff q.4 hours as needed for shortness of breath. 5. Ferrous sulfate 325 mg p.o. daily. 6. Metolazone 5 mg 3 times weekly. 7. Tylenol 1000 mg every 8 hours as needed. 8. Nicotine patch 1 patch transdermally daily. 9. Vitamin B12 1000 mcg p.o. daily. 10. Citalopram 30 mg p.o. daily. 11. Torsemide 20 mg p.o. daily 12. Questran 4 g p.o. at bedtime. 13. Apixaban 5 mg p.o. b.i.d. 14. Fosamax 70 mg p.o. weekly. 15. Singulair 10 mg p.o. daily. 16. Metoprolol 50 mg p.o. b.i.d. with meals. 17. Magnesium oxide 400 mg p.o. daily. 18. Anoro 1 puff inhaled daily. ALLERGIES: To TOMATOES. FAMILY HISTORY: Father at the age of 88 due to dementia, also had a history of hypertension and diabetes. Mother with a history of heart failure, hypertension, and an [place]. SOCIAL HISTORY: The patient is a former smoker, used to smoke a pack a day for 40 years. She quit smoking this year. She drinks only rarely. Denies any illicit drug use. She lives with her sister. She walks with a walker at baseline. Her surrogate decision maker in the event she is unable to make her own decisions is her sister, Lorena. She is a DNR/DNI. REVIEW OF SYSTEMS: A 14-point review of systems was completed. All pertinent positives are mentioned in the HPI, otherwise were negative. PHYSICAL EXAMINATION GENERAL: At this time, Ms. Rosado is a 73-year-old female. She is alert and oriented, resting on the stretcher in the emergency room. She is in no acute distress. VITAL SIGNS: Temperature is 97.2, heart rate is 71, respirations are 16, O2 saturation is 100% and blood pressure 121/73. HEENT: Head is atraumatic, normocephalic. Eyes: EOMs are intact. Sclerae anicteric and not pale. Oral mucosa is dry. NECK: Supple. RESPIRATORY: Lungs are diminished throughout bilaterally. There are no rales or rhonchi. She is on 3 L nasal cannula. CARDIAC: S1, S2. Irregular rate and rhythm. No murmurs, rubs or gallops. ABDOMEN: Obese, soft. She does complain of diffuse tenderness with palpation. Bowel sounds are active x4. GENITOURINARY: The patient has a chronic indwelling Jimenez catheter, draining dark yellow urine to gravity. MUSCULOSKELETAL: She is able to move all 4 extremities. No clubbing or cyanosis. NEUROLOGIC: She is awake, alert, and oriented x3. Her speech is clear. Thought process is intact. There is no gross focal deficit. SKIN: She has an abrasion noted to her right ankle with surrounding erythema, warm to touch. She has venous stasis changes to bilateral lower extremities. DIAGNOSTIC STUDIES/LAB DATA: WBCs are 7.3, RBCs 3.83, hemoglobin 12.5, hematocrit is 36, platelet count is 187. INR is 3.74, APTT was 49.8. Sodium 134, potassium 2.4, chloride 84, carbon dioxide 40, BUN was 78, creatinine was 1.99, glucose was 164, lactic acid 2.5, calcium 9.8, magnesium 2.1, total bilirubin 1.30. ASTs were 9, ALTs were 4, alkaline phosphatase is 76, troponin was 0.05. Urine; color was cloudy, pH was 5, specific gravity 1.018, urine protein was negative, ketones were negative, blood was 3+, and urine nitrites, bilirubin, and urobilinogen were all negative. Urine leukocyte esterase was 2+ , wbc's were 3+, rbc's were 3+, squamous epithelial cells were present, bacteria was 2, hyaline casts were present, and glucose is negative. She had an x-ray of her knee, which showed no fracture of the knee, degenerative changes of the medial compartment of the right knee. She had an x- ray of the lower extremity: Osteopenia, osteoarthritis. There is periosteal reaction along the distal medial tibia, which may reflect a healing response in the setting of subacute fracture, recommend correlation with site of pain and peripheral artery disease. ASSESSMENT AND PLAN: Ms. Rosaod is a 73-year-old female with a past medical history significant for heart failure with preserved ejection fraction; chronic obstructive pulmonary disease; atrial fibrillation, on chronic anticoagulation; chronic kidney disease, who presented to the emergency room with complaints of right knee pain after a fall. She will be admitted inpatient for: 1. Right knee pain. The patient tells it is very tender. There is mild swelling noted to the right knee with ecchymosis. I am going to get a CT of the knee to rule out any fracture. I will order PT and OT if her findings are negative with the CT of her right lower extremity. If the patient does have a fracture, I will consult Orthopedics for further recommendations. 2. Fall. The patient did have a fall on Friday at home. She has been unable to walk or bear weight on the right leg since. Again, we are getting a CT of the right lower extremity. Further recommendations based on future imaging. If she has no acute fracture, I will get PT and OT involved. If the patient does have a fracture, I will consult Orthopedics for further recommendations. 3. Acute kidney injury. The patient does have a BUN and creatinine that is above her baseline. I suspect this is related to dehydration as the patient reports she has not been eating and drinking at home for approximately a week. She did receive a L of IV fluids in the emergency room. I will continue her on normal saline at 75 cc per hour. I will repeat a BMP in the a.m. 4. Hypokalemia. The patient does have a potassium of 2.4. I suspect this is related to malnutrition as the patient has had a poor p.o. intake x1 week. She is to receive 40 mEq of potassium in her IV in the emergency room. I will give her an extra 40 p.o. and repeat a BMP in the a.m. 5. Elevated troponin. The patient does have an elevated troponin. She currently has not experienced any chest pain. She has no EKG changes. I suspect this is probably related to demand ischemia. We will continue to trend her troponins and monitor on telemetry overnight. 6. Elevated lactic acid. The patient does have an elevated lactic acid of 2.4. This patient has no clear source of underlying infection. This could be related to her elevated BUN and creatinine, dehydration. She did also have an episode of hypotension with blood pressure of 87/64 in the emergency room, which could be contributing to her elevated lactic acid. I will repeat her lactic acid, but again at this point, she has no clear source of infection. Her chest x-ray is clear. She has no urinary complaints and has chronic jimenez catheter. and is afebrile with negative white count. 7. Abnormal UA. She has a chronic jimenez catheter, her urine did show wbc's,rbc 's, leukocyte esterase, +2 bacteria and hyaline casts. She did receive ceftriaxone in the emergency room , will continue on ceftriaxone until urine culture is available, as the patient has been experience weakness and poor po intake for 1 week now. 8. Right lower leg cellulitis. Patient does have mild cellulitis to her right lower leg surrounding a small abrasion. I will place her doxycycline to cover for MRSA as the patient does have a recent history of MRSA in her urine. 9. Atrial fibrillation. The patient will be continued on metoprolol as previously prescribed. 10. Gastroesophageal reflux disease. She will continue on omeprazole as previously prescribed. 11. Depression. She will continue on citalopram as previously prescribed. 12. Supratherapeutic INR. The patient does have an INR of 3.74. I am going to hold her apixaban tonight and repeat an INR in the a.m. 13. DVT prophylaxis: She has supratherapeutic INR, for which she is on apixaban. I am going to hold her apixaban and resume when able. 14. Code status: She is a DNR. TIME SPENT: Time spent on this admission was 60 minutes, greater than half that time was spent at the bedside reviewing events leading thus far to her hospitalization, performing physical exam, and reviewing my plan of care. I have discussed this with my attending, Dr. Sandy Youssef, she is in agreement with my plan. TANIYA COHN, PAN DUMPER [id number]/[facility] #: [id number] [facility] HEALTH SYSTEMKimberly
[2019-08-06] MEDS: Cholestyramine Resin* 4 GM POWDER PO SCH (22:11)
[2019-08-06] MEDS: Nicotine Patch Removal NOTE PATCH OFF SCH (22:13)
[2019-08-06] MEDS: traMADol TAB* 50 MG PO PRN (23:34)
[2019-08-07 07:22] LABS: Calcium 9.2 mg/dL (8.6-10.3); Potassium 3.4 mmol/L (3.5-5.0)
[2019-08-07 07:28] LABS: BUN/Creatinine Ratio 40.6 (8-20); EGFR African American 39.7 (>60); EGFR Non-African American 32.8 (>60)
[2019-08-07 07:31] LABS: ABS Basophils 0.1 10^3/ul (0-0.2); ABS Eosinophils 0.3 10^3/ul (0-0.6); ABS Lymphocytes 0.3 10^3/ul (1.0-4.8); ABS Monocytes 0.4 10^3/ul (0-0.8); ABS Neutrophils 5.1 10^3/ul (1.5-7.7); Eosinophil % 4.5 %; Hematocrit 35 % (35-47); Hemoglobin 11.7 g/dL (12.0-16.0); Lymphocyte % 4.8 %; Mean Corpuscular HGB Conc 34 g/dL (31-36); Mean Corpuscular Hemoglobin 32 pg (27-31); Mean Corpuscular Volume 96 fL (80-97); Mean Platelet Volume 7.6 fL (7.4-10.4); Nucleated Red Blood Cells % 0.1; Platelet Count 136 10^3/uL (150-450); Red Blood Count 3.61 10^6 /uL (3.70-4.87); Red Cell Distribution Width 22 % (10-15); White Blood Count 6.1 10^3/uL (3.5-10.8)
[2019-08-07] MEDS: Tiotropium Brom/Olodaterol MDI INH SCH (07:54)
[2019-08-07] MEDS: Montelukast Sodium TAB* 10 MG PO SCH (08:02)
[2019-08-07] MEDS: Citalopram TAB* 10 MG PO SCH (08:02)
[2019-08-07] MEDS: Magnesium Oxide TAB* 400 MG PO SCH (08:02)
[2019-08-07] MEDS: Ferrous Sulfate TAB* 325 MG PO SCH (08:02)
[2019-08-07] MEDS: Metoprolol Tartrate TAB* 50 mg PO SCH ×2 (08:02→15:57)
[2019-08-07] MEDS: Cyanocobalamin TAB* 500 MCG PO SCH (08:02)
[2019-08-07] MEDS: traMADol TAB* 50 MG PO PRN ×2 (08:02→15:57)
[2019-08-07] MEDS: Citalopram TAB* 20 MG PO SCH (08:02)
[2019-08-07] MEDS: Pantoprazole TAB * 40 MG TAB PO SCH (08:02)
[2019-08-07] MEDS: Nicotine PATCH 7 MG/24 HR* PATCH TRANSDERM SCH (08:02)
[2019-08-07] MEDS ORDERED: Polyethylene Glycol 3350* 17 GM PACKET PO PRN (10:39)
[2019-08-07] MEDS ORDERED: Potassium Chlor TAB* 20 MEQ TAB.ER PO ONE (10:41)
--- NOTE | 2019-08-07 11:28 | PN ---
Subjective Date of Service: 08/07/19 Interval History: Patient reports that she continues to have pain in her right knee. reviewed CT scan with the patient and made aware of tibial tuberosity fracture. Denies chest pain or shortness of breath. Denies abd pain n/v/d. Denies fever or chills. Family History: Unchanged from Admission Social History: Unchanged from Admission Past Medical History: Unchanged from Admission Objective Active Medications: Acetaminophen (Tylenol Tab*) 650 mg PO Q4H PRN PRN Reason: MILD PAIN or TEMP > 100.4 Albuterol (Ventolin 2.5 Mg/3 Ml Neb.Cherie*) 2.5 mg INH Q4H PRN PRN Reason: SHORTNESS OF BREATH Calcium Carbonate (Tums*) 500 mg PO Q4H PRN PRN Reason: INDIGESTION Cholestyramine Resin (Questran*) 4 gm PO BEDTIME [facility] Last Admin: 08/06/19 22:11 Dose: 4 gm Citalopram Hydrobromide (Celexa Tab*) 10 mg PO DAILY [facility] Last Admin: 08/07/19 08:02 Dose: 10 mg Citalopram Hydrobromide (Celexa Tab*) 20 mg PO DAILY [facility] Last Admin: 08/07/19 08:02 Dose: 20 mg Cyanocobalamin (Vitamin B12 Tab*) 1,000 mcg PO DAILY [facility] Last Admin: 08/07/19 08:02 Dose: 1,000 mcg Ferrous Sulfate (Ferrous Sulfate Tab*) 325 mg PO DAILY [facility] Last Admin: 08/07/19 08:02 Dose: 325 mg Magnesium Oxide (Magox 400 Tab*) 400 mg PO DAILY [facility] Last Admin: 08/07/19 08:02 Dose: 400 mg Metoprolol Tartrate (Lopressor Tab*) 50 mg PO BID WITH MEALS [facility] Last Admin: 08/07/19 08:02 Dose: 50 mg Montelukast Sodium (Singulair Tab*) 10 mg PO DAILY [facility] Last Admin: 08/07/19 08:02 Dose: 10 mg Nicotine (Nicotine Patch 7 Mg/24 Hr*) 1 patch TRANSDERM DAILY [facility] Last Admin: 08/07/19 08:02 Dose: 1 patch Pantoprazole Sodium (Protonix Tab*) 40 mg PO DAILY [facility] Last Admin: 08/07/19 08:02 Dose: 40 mg Pharmacy Profile Note (Nicotine Patch Removal Note*) 1 note PATCH OFF 2100 [facility] Last Admin: 08/06/19 22:13 Dose: Not Given Polyethylene Glycol/Electrolytes (Miralax (17 Gm Dose [place])) 17 gm PO DAILY PRN PRN Reason: CONSTIPATION Tiotropium [place]/Olodaterol (Stiolto Respimat Inh [place] (60 Puff)) 2 puff INH DAILY [facility] Last Admin: 08/07/19 07:54 Dose: 2 puff Tramadol HCl (Ultram*) 50 mg PO Q6HR PRN PRN Reason: PAIN - MODERATE Last Admin: 08/07/19 08:02 Dose: 50 mg Vital Signs - 8 hr 08/07/19 08/07/19 08/07/19 07:15 07:42 07:54 Temperature 97.3 F Pulse Rate 77 87 Respiratory 20 20 14 Rate Blood Pressure 115/52 (mmHg) O2 Sat by Pulse 93 90 Oximetry 08/07/19 08/07/19 08:02 09:54 Temperature Pulse Rate Respiratory 20 18 Rate Blood Pressure (mmHg) O2 Sat by Pulse Oximetry Oxygen Devices in Use Now: Nasal Cannula Appearance: appears comfortable , resting in bed no acute distress Eyes: No Scleral Icterus Ears/Nose/Mouth/Throat: Clear Oropharnyx, - - mucous membranes dry, Neck: NL Appearance and Movements; NL JVP, Trachea Midline Respiratory: Symmetrical Chest Expansion and Respiratory Effort, Clear to Auscultation Cardiovascular: NL Sounds; No Murmurs; No JVD Abdominal: NL Sounds; No Tenderness; No Distention Extremities: No Clubbing, Cyanosis, - - mild swelling and ecchymosis noted to right knee. Skin: No Rash or Ulcers Neurological: Alert and Oriented x 3 Nutrition: Taking PO's Result Diagrams: 08/07/19 06:07 08/07/19 06:07 Assess/Plan/Problems-Billing Assessment: Ms. Rosado is a 73 y.o female with pmhx of HFpEF, afib, ckd, htn, and copd who presented to the emergency room after a fall at home with the complaints of right knee pain, found to have tibial tubrosity fracture, LAKSHMI, and dehydration. - Patient Problems (1) Closed fracture of right tibial tuberosity Current Visit: Yes Status: Acute Code(s): S82.151A - DISP FX OF RIGHT TIBIAL TUBEROSITY, INIT FOR CLOS FX SNOMED Code(s): 022092916 Comment: -CT showed Right tibial tuberosity fracture - Ortho consulted recommended - knee immobilizer - will consult PT as well - pain medicaitons as needed for pain - weight bearing as tolerated - f/u with ortho in 1-2 weeks (2) Fall Current Visit: Yes Status: Acute Comment: -fall on friday08/08/2019 at home, now with right tibial tuberosity fracture - will have PT evaluate - will likely need MONIKA at discharge (3) UTI (urinary tract infection) due to urinary indwelling catheter Current Visit: Yes Status: Acute Code(s): T83.511A - I/I REACT D/T INDWELLING URETHRAL CATHETER, INIT; N39.0 - URINARY TRACT INFECTION, SITE NOT SPECIFIED SNOMED Code(s): 146365443 Comment: given the patient general weakness, decreased po intake and abnormal UA with recent hx of UTI with showed MRSA and proteus penneri- I am going to continue treatment with ceftriaxone while urine culture is pending - I will add doxycycline as last culture showed MRSA - urine culture -pending (4) Cellulitis Current Visit: Yes Status: Acute Code(s): L03.90 - CELLULITIS, UNSPECIFIED SNOMED Code(s): 824525927 Comment: patient is noted to have mild cellulitis to right lower leg - she is being covered with doxycycline and ceftriaxone for UTI which also appropriate treatment for her mild cellulitis (5) Dehydration Current Visit: Yes Status: Acute Code(s): E86.0 - DEHYDRATION SNOMED Code( s): 58597075 Comment: Poor appetite x 1 week - IVF given - creatinine improved this AM - will continue to hold diruetics- for now - repeat BMP in the AM - encourage PO fluid/ food intake (6) LAKSHMI (acute kidney injury) Current Visit: Yes Status: Acute Code(s): N17.9 - ACUTE KIDNEY FAILURE, UNSPECIFIED SNOMED Code(s): 00845140 Comment: likely related to dehydration in the setting of poor PO intake and use of diuretics - IVF given overnight , creatinine improving - holding diuretics for now - patient continues to appear volume depleted- will encourage PO fluids (7) Hypokalemia Current Visit: Yes Status: Acute Code(s): E87.6 - HYPOKALEMIA SNOMED Code( s): 00076297 Comment: improving - will give potassium 40 meq today - repeat BMP in the AM (8) Atrial fibrillation Current Visit: No Status: Acute Priority: Medium Code(s): I48.91 - UNSPECIFIED ATRIAL FIBRILLATION SNOMED Code(s): 43667032 Comment: - Rate controlled - Continue metoprolol 50 mg BID - Holding eliquis- d/t supratherapeutic INR- repeat today showed 2.41 - will resume this evening (9) COPD (chronic obstructive pulmonary disease) Current Visit: No Status: Acute Code(s): J44.9 - CHRONIC OBSTRUCTIVE PULMONARY DISEASE, UNSPECIFIED SNOMED Code(s): 12886362 Comment: - No evidence of exacerbation. Continue Spiriva, nebs, singulair - No indication for steroids. - Aim for SpO2 goal 88-92% (10) Depression Current Visit: No Status: Acute Code(s): F32.9 - MAJOR DEPRESSIVE DISORDER, SINGLE EPISODE, UNSPECIFIED SNOMED Code(s): 30310680 Comment: - Continue citalopram (11) Hypertension Current Visit: No Status: Acute Code(s): I10 - ESSENTIAL (PRIMARY) HYPERTENSION SNOMED Code(s): 21269815 Comment: - Normotensive - Continue metoprolol (12) JASMINA (obstructive sleep apnea) Current Visit: No Status: Acute Code(s): G47.33 - OBSTRUCTIVE SLEEP APNEA ( ADULT) (PEDIATRIC) SNOMED Code(s): 68244466 Comment: -Offer CPAP nightly (13) Supratherapeutic INR Current Visit: Yes Status: Acute Code(s): R79.1 - ABNORMAL COAGULATION PROFILE SNOMED Code(s): 135644144 Comment: andreia is currently taking apixaban - suspect this is related to poor po intake and the use of this medication - held dose last evening and this AM - repeat INR inproved now 2.41- will resume apixaban this evening (14) DVT prophylaxis Current Visit: No Status: Acute Code(s): KHA0307 - SNOMED Code(s): 654002949 Comment: -eliquis (15) DNR (do not resuscitate) Current Visit: No Status: Acute Status and Disposition: will need STR at discharge
--- NOTE | 2019-08-07 12:56 | HP ---
H&P (Free Text) History and Physical: Orthopedic Surgery Consultation H&P Date: 08/07/2019 Requesting Service: Hospitalist service Chief Complaint: Right knee pain. History: A 73-year-old woman with reports a fall on Friday08/02/19. She has been unable to walk since then. She came into the emergency room last night. She reports pain at the right anterior knee. The pain is located at the right knee and is constant, moderate, sharp. Pain worse with knee ROM and lessened when rested. Review of Systems: Negative for fever, recent visual changes, difficulty swallowing, chest pain, shortness of breath, hematuria, diffuse weakness or lack of coordination, and diffuse rash. She does report abdominal pain. PMH: CHF, GERD, atrial fibrillation, COPD on home oxygen, hypertension, cataracts, chronic kidney disease, CVA, JASMINA, urinary retention with chronic Davis, pulmonary hypertension. PSH: Spinal surgery, appendectomy, cholecystectomy, hysterectomy, and [employer] shunt placement Medications: Tramadol, MiraLax, omeprazole, albuterol, iron, metalozone, Tylenol , nicotine, vitamin B12, citalopram, Questran, Apixaban, Fosamax, Singulair, metoprolol, magnesium, furosemide, Anoro Allergies: Tomatoes SH: Former smoker, quit this year. Rare alcohol. Lives with her sister. She uses a walker at baseline. FH: Dementia, hypertension, diabetes, CAD Physical Examination: Constitutional: Temp Pulse Resp BP Pulse Ox 96.9 F 95 20 95/42 95 08/07/19 11:15 08/07/19 11:15 08/07/19 11:15 08/07/19 11:15 08/07/19 11:15 General appearance is healthy and non-septic in no acute distress. Cardiovascular: Pulse examination demonstrates positive pedal pulses with brisk capillary refill. There are no varicosities. Abdomen: Soft and nontender Lymphatic: No lymphadenopathy appreciated. Skin: Bilateral upper and lower extremity examination demonstrates no ulcerative lesions. Psychiatric / Neurological: Appropriate affect. Alert and oriented to person, place and time. There is no significant abnormality in coordination appreciated. Normoreflexive deep tendon reflex of the affected extremity. Musculoskeletal: Bilateral upper extremities and contralateral lower extremity show full range of motion with no evidence of instability and no tenderness with palpation and 5 /5 strength. There is no gross deformity. RLE: Skin intact 5/5 motor strength distally with intact sensation to light touch There is some swelling and ecchymoses about the anterior knee. Tender palpation about the anterior knee, worst at the tibial tubercle. She cannot perform a straight leg raise, although is not really trying. No pain with logroll. No tenderness to palpation about the ankle or foot. Palpable DP pulse. Flexes and extends ankle and toes. Imaging: X-rays and CT scan were obtained, and independently interpreted and show a nondisplaced fracture at the tibial tubercle. The patellar and quad tendons appear intact. No patellar fracture appreciated. Impression and Plan: Nondisplaced right tibial tubercle fracture. I discussed the diagnosis and treatment options with Litzy. My recommendation is conservative treatment with a knee immobilizer at all times and weightbearing as tolerated. Physical therapy. She can followup in the office in 1 to 2 weeks for a repeat check. Anthony Lane MD
[2019-08-07 13:12] LABS: INR 2.41 (0.82-1.09)
[2019-08-07] MEDS: cefTRIAXone(*) 1 GM in NS 0.9% 50 ML* 50 ML IVPB SCH (15:58)
[2019-08-07] MEDS: Apixaban* 5 MG TAB PO SCH (20:03)
[2019-08-07] MEDS: DOXYcycline CAP(*) 100 MG PO SCH (20:03)
[2019-08-07] MEDS: Cholestyramine Resin* 4 GM POWDER PO SCH (20:03)
[2019-08-07] MEDS: Nicotine Patch Removal NOTE PATCH OFF SCH (20:05)
[2019-08-08] MEDS: traMADol TAB* 50 MG PO PRN (02:13)
[2019-08-08 07:22] LABS: Hematocrit 33 % (35-47); Hemoglobin 11.2 g/dL (12.0-16.0); Mean Corpuscular HGB Conc 34 g/dL (31-36); Mean Corpuscular Hemoglobin 32 pg (27-31); Mean Corpuscular Volume 95 fL (80-97); Platelet Count 146 10^3/uL (150-450); Red Blood Count 3.47 10^6 /uL (3.70-4.87); Red Cell Distribution Width 22 % (10-15); White Blood Count 5.6 10^3/uL (3.5-10.8)
[2019-08-08 07:32] LABS: Calcium 9.5 mg/dL (8.6-10.3); EGFR African American 51.8 (>60); EGFR Non-African American 42.8 (>60); Potassium 3.6 mmol/L (3.5-5.0)
[2019-08-08] MEDS: Tiotropium Brom/Olodaterol MDI INH SCH (07:51)
[2019-08-08] MEDS: Metoprolol Tartrate TAB* 50 mg PO SCH ×2 (08:31→16:04)
[2019-08-08] MEDS: Magnesium Oxide TAB* 400 MG PO SCH (08:32)
[2019-08-08] MEDS: Citalopram TAB* 20 MG PO SCH (08:32)
[2019-08-08] MEDS: Montelukast Sodium TAB* 10 MG PO SCH (08:32)
[2019-08-08] MEDS: Cyanocobalamin TAB* 500 MCG PO SCH (08:32)
[2019-08-08] MEDS: Pantoprazole TAB * 40 MG TAB PO SCH (08:32)
[2019-08-08] MEDS: Citalopram TAB* 10 MG PO SCH (08:33)
[2019-08-08] MEDS: Apixaban* 5 MG TAB PO SCH ×2 (08:33→19:39)
[2019-08-08] MEDS: DOXYcycline CAP(*) 100 MG PO SCH ×2 (08:33→19:39)
[2019-08-08] MEDS: Ferrous Sulfate TAB* 325 MG PO SCH (08:33)
[2019-08-08] MEDS: Nicotine PATCH 7 MG/24 HR* PATCH TRANSDERM SCH (08:35)
--- NOTE | 2019-08-08 09:11 | PN ---
Progress Note - Progress Note Date of Service: 08/08/19 SOAP: Subjective: [The pt was seen this morning eating breakfast. She state that she is doing well. She is unhappy to be interrupted during breakfast. She denies any chest pain, SOB, nausea or vomiting.] Objective: Vital Signs Temp 98 F 08/08/19 07:15 Pulse 79 08/08/19 07:52 Resp 14 08/08/19 07:52 BP 118/40 08/08/19 07:15 Pulse Ox 94 08/08/19 07:52 Intake & Output 08/07/19 08/08/19 08/08/19 18:59 06:59 18:59 Intake Total 950 480 Output Total 700 925 Balance 250 -445 Intake: IV Fluids 460 NS (0.9%) 460 Oral 490 480 Output: Urine 400 Davis 300 925 Other: # Voids 2 [ General: Pt is alert and oriented x3, NAD> MSK, RLEL: Inspection reveals skin intact. 5/5 motor strength distally with intact sensation to light touch. Tender palpation about the anterior knee, worst at the tibial tubercle. She was able to preform a slight straight leg raise at this point. She was able to raise about 2 - 3 inches off the pillow. No pain with logroll. No tenderness to palpation about the ankle or foot. Palpable DP pulse. Flexes and extends ankle and toes.] Assessment: [Nondisplaced right tibial tubercle fracture. ] Plan: [conservative treatment with a knee immobilizer at all times and weightbearing as tolerated Physical therapy She can followup in the office in 1 to 2 weeks for a repeat check.]
--- NOTE | 2019-08-08 10:07 | PN ---
Subjective Date of Service: 08/08/19 Interval History: Denies any FERNANDES, CP, SOB, abdominal discomfort, numbness/tingling. Family History: Unchanged from Admission Social History: Unchanged from Admission Past Medical History: Unchanged from Admission Objective Active Medications: Acetaminophen (Tylenol Tab*) 650 mg PO Q4H PRN PRN Reason: MILD PAIN or TEMP > 100.4 Albuterol (Ventolin 2.5 Mg/3 Ml Neb.Cherie*) 2.5 mg INH Q4H PRN PRN Reason: SHORTNESS OF BREATH Apixaban (Eliquis*) 5 mg PO BID [facility] Last Admin: 08/08/19 08:33 Dose: 5 mg Calcium Carbonate (Tums*) 500 mg PO Q4H PRN PRN Reason: INDIGESTION Cholestyramine Resin (Questran*) 4 gm PO BEDTIME [facility] Last Admin: 08/07/19 20:03 Dose: 4 gm Citalopram Hydrobromide (Celexa Tab*) 10 mg PO DAILY [facility] Last Admin: 08/08/19 08:33 Dose: 10 mg Citalopram Hydrobromide (Celexa Tab*) 20 mg PO DAILY [facility] Last Admin: 08/08/19 08:32 Dose: 20 mg Cyanocobalamin (Vitamin B12 Tab*) 1,000 mcg PO DAILY [facility] Last Admin: 08/08/19 08:32 Dose: 1,000 mcg Doxycycline Hyclate (Vibramycin Cap(*)) 100 mg PO BID [facility] Last Admin: 08/08/19 08:33 Dose: 100 mg Ferrous Sulfate (Ferrous Sulfate Tab*) 325 mg PO DAILY [facility] Last Admin: 08/08/19 08:33 Dose: 325 mg Ceftriaxone Sodium 1 gm/ (Sodium Chloride) 50 mls @ 100 mls/hr IVPB Q24H [facility] Last Admin: 08/07/19 15:58 Dose: 100 mls/hr Magnesium Oxide (Magox 400 Tab*) 400 mg PO DAILY [facility] Last Admin: 08/08/19 08:32 Dose: 400 mg Metoprolol Tartrate (Lopressor Tab*) 50 mg PO BID WITH MEALS [facility] Last Admin: 08/08/19 08:31 Dose: 50 mg Montelukast Sodium (Singulair Tab*) 10 mg PO DAILY [facility] Last Admin: 08/08/19 08:32 Dose: 10 mg Nicotine (Nicotine Patch 7 Mg/24 Hr*) 1 patch TRANSDERM DAILY [facility] Last Admin: 08/08/19 08:35 Dose: 1 patch Pantoprazole Sodium (Protonix Tab*) 40 mg PO DAILY [facility] Last Admin: 08/08/19 08:32 Dose: 40 mg Pharmacy Profile Note (Nicotine Patch Removal Note*) 1 note PATCH OFF 2100 [facility] Last Admin: 08/07/19 20:05 Dose: 1 note Polyethylene Glycol/Electrolytes (Miralax (17 Gm Dose Gordo)) 17 gm PO DAILY PRN PRN Reason: CONSTIPATION Tiotropium [place]/Olodaterol (Stiolto Respimat Inh [place] (60 Puff)) 2 puff INH DAILY [facility] Last Admin: 08/08/19 07:51 Dose: 2 puff Tramadol HCl (Ultram*) 50 mg PO Q6HR PRN PRN Reason: PAIN - MODERATE Last Admin: 08/08/19 02:13 Dose: 50 mg Vital Signs - 8 hr 08/08/19 08/08/19 08/08/19 02:13 03:15 04:14 Temperature 97.3 F Pulse Rate 86 Respiratory 16 19 15 Rate Blood Pressure 110/57 (mmHg) O2 Sat by Pulse 90 Oximetry 08/08/19 08/08/19 07:15 07:52 Temperature 98 F Pulse Rate 83 79 Respiratory 20 14 Rate Blood Pressure 118/40 (mmHg) O2 Sat by Pulse 90 94 Oximetry Oxygen Devices in Use Now: Nasal Cannula Appearance: laying in chair, NAD, resting Eyes: No Scleral Icterus, - - PERRL Ears/Nose/Mouth/Throat: Clear Oropharnyx Respiratory: Symmetrical Chest Expansion and Respiratory Effort, Clear to Auscultation Cardiovascular: - - HR irregular, S1/S2 present , no murmurs/rubs/gallops Abdominal: NL Sounds; No Tenderness; No Distention Extremities: - - Immobilizer to RLE Neurological: Alert and Oriented x 3 Nutrition: Taking PO's Result Diagrams: 08/08/19 07:08 08/08/19 07:08 Additional Lab and Data: Abnormal Lab Results 08/08/19 08/08/19 08/08/19 07:08 07:08 07:08 WBC 5.6 RBC 3.47 L Hgb 11.2 L Hct 33 L MCV 95 MCH 32 H MCHC 34 RDW 22 H Plt Count 146 L MPV 7.0 L INR (Anticoag Therapy) 2.00 H Sodium 138 Potassium 3.6 Chloride 98 L Carbon Dioxide 35 H Anion Gap 5 BUN 48 H Creatinine 1.23 H Est GFR ( Amer) 51.8 Est GFR (Non-Af Amer) 42.8 BUN/Creatinine Ratio 39.0 H Glucose 140 H Calcium 9.5 Microbiology and Other Data: Microbiology 08/06/19 14:55 Urine Culture - Final Urine Enterococcus Faecium 08/06/19 20:08 Aerobic Blood Culture - Preliminary Blood Venous No Growth Day 1 Anaerobic Blood Culture - Preliminary No Growth Day 1 08/06/19 14:15 Aerobic Blood Culture - Preliminary Blood Venous No Growth Day 1 Anaerobic Blood Culture - Preliminary No Growth Day 1 Assess/Plan/Problems-Billing Assessment: Ms. Rosado is a 73 y.o female with pmhx of HFpEF, afib, ckd, htn, and copd who presented to the emergency room after a fall at home with the complaints of right knee pain, found to have tibial tubrosity fracture, and dehydration. - Patient Problems (1) Closed fracture of right tibial tuberosity Current Visit: Yes Status: Acute Code(s): S82.151A - DISP FX OF RIGHT TIBIAL TUBEROSITY, INIT FOR CLOS FX SNOMED Code(s): 638851905 Comment: CT showed Right tibial tuberosity fracture - Ortho consulted recommended - knee immobilizer - will consult PT as well - pain medicaitons as needed for pain - weight bearing as tolerated - f/u with ortho in 1-2 weeks - likely need MONIKA (2) Cellulitis Current Visit: Yes Status: Acute Code(s): L03.90 - CELLULITIS, UNSPECIFIED SNOMED Code(s): 454709444 Comment: patient is noted to have mild cellulitis to right lower leg - starting on linezolid which will cover for MRSA (3) Dehydration Current Visit: Yes Status: Acute Code(s): E86.0 - DEHYDRATION SNOMED Code( s): 60541062 Comment: Poor appetite x 1 week - Creatinine continues to improve - will continue to hold diruetics- for now - repeat BMP in the AM - encourage PO fluid/ food intake (4) Fall Current Visit: Yes Status: Acute Comment: -fall on friday08/08/2019 at home, now with right tibial tuberosity fracture - will have PT evaluate - will likely need MONIKA at discharge (5) Hypokalemia Current Visit: Yes Status: Acute Code(s): E87.6 - HYPOKALEMIA SNOMED Code( s): 37991624 Comment: resolved (6) Supratherapeutic INR Current Visit: Yes Status: Acute Code(s): R79.1 - ABNORMAL COAGULATION PROFILE SNOMED Code(s): 056198196 Comment: andreia is currently taking apixaban - suspect this is related to poor po intake and the use of this medication - INR 2.0 - Continue apixaban (7) UTI (urinary tract infection) due to urinary indwelling catheter Current Visit: Yes Status: Acute Code(s): T83.511A - I/I REACT D/T INDWELLING URETHRAL CATHETER, INIT; N39.0 - URINARY TRACT INFECTION, SITE NOT SPECIFIED SNOMED Code(s): 756051468 Comment: given the patient general weakness, decreased po intake and abnormal UA with recent hx of UTI with showed MRSA and proteus penneri- - culture sensative to linezolid, also with MRSA coverage - Will have to stop citalopram which she can restart 24 hrs after last linezolid dose (8) Atrial fibrillation Current Visit: No Status: Acute Priority: Medium Code(s): I48.91 - UNSPECIFIED ATRIAL FIBRILLATION SNOMED Code(s): 02788754 Comment: - Rate controlled - Continue metoprolol 50 mg BID - continue eliquis (9) CHF (congestive heart failure) Current Visit: No Status: Acute Code(s): I50.9 - HEART FAILURE, UNSPECIFIED SNOMED Code(s): 30678470 Comment: No signs of exacerbation at this time. Continue to hold diuretics at this time. Continue metoprolol. (10) COPD (chronic obstructive pulmonary disease) Current Visit: No Status: Acute Code(s): J44.9 - CHRONIC OBSTRUCTIVE PULMONARY DISEASE, UNSPECIFIED SNOMED Code(s): 48251140 Comment: On 3L O2 at baseline. - No evidence of exacerbation. Continue Spiriva, nebs, singulair - No indication for steroids. 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
[2019-08-08] MEDS ORDERED: Magnesium Hydroxide LIQ* 30 ML UDC PO PRN (10:08)
[2019-08-08] MEDS ORDERED: Magnesium Hydroxide LIQ* 30 ML UDC PO ONE (10:08)
[2019-08-08] MEDS ORDERED: Docusate CAP* 100 MG PO PRN (10:08)
[2019-08-08] MEDS: Senna TAB 8.6 mg* TAB PO SCH (11:26)
[2019-08-08] MEDS: cefTRIAXone(*) 1 GM in NS 0.9% 50 ML* 50 ML IVPB SCH (16:04)
[2019-08-08] MEDS: Cholestyramine Resin* 4 GM POWDER PO SCH (19:39)
[2019-08-08] MEDS: Linezolid TAB* 600 MG PO SCH (19:39)
[2019-08-08] MEDS: Acetaminophen TAB* 325 MG PO SCH (19:39)
[2019-08-08] MEDS: Nicotine Patch Removal NOTE PATCH OFF SCH (20:17)
[2019-08-08] MEDS ORDERED: oxyCODONE TAB* 5 MG TAB PO ONE (21:26)
[2019-08-09] MEDS: Acetaminophen TAB* 325 MG PO SCH ×4 (01:42→20:00)
[2019-08-09] MEDS: Tiotropium Brom/Olodaterol MDI INH SCH (07:19)
[2019-08-09 08:08] LABS: Urine Appearance Cloudy; Urine Bilirubin Negative (Negative); Urine Blood 2+ (Negative); Urine Color Yellow; Urine Glucose Negative (Negative); Urine Ketones Negative (Negative); Urine Nitrite Negative (Negative); Urine Protein Negative (Negative); Urine Specific Gravity 1.017 (1.010-1.030); Urine Urobilinogen Negative (Negative)
[2019-08-09 08:10] LABS: Urine Bacteria Absent (Absent); Urine Red Blood Cell 3+(>10/hpf) (Absent); Urine Uric Acid Crystals Present (Absent); Urine White Blood Cell 3+(>20/hpf) (Absent)
[2019-08-09] MEDS: DOXYcycline CAP(*) 100 MG PO SCH (09:46)
[2019-08-09] MEDS: Montelukast Sodium TAB* 10 MG PO SCH (09:46)
[2019-08-09] MEDS: Metoprolol Tartrate TAB* 50 mg PO SCH ×2 (09:46→15:41)
[2019-08-09] MEDS: Pantoprazole TAB * 40 MG TAB PO SCH (09:46)
[2019-08-09] MEDS: Apixaban* 5 MG TAB PO SCH ×2 (09:47→20:00)
[2019-08-09] MEDS: Magnesium Oxide TAB* 400 MG PO SCH (09:47)
[2019-08-09] MEDS: Cyanocobalamin TAB* 500 MCG PO SCH (09:52)
[2019-08-09] MEDS: Senna TAB 8.6 mg* TAB PO SCH (09:53)
[2019-08-09] MEDS: Ferrous Sulfate TAB* 325 MG PO SCH (09:53)
[2019-08-09] MEDS: Linezolid TAB* 600 MG PO SCH ×2 (09:56→20:00)
[2019-08-09] MEDS: Nicotine PATCH 7 MG/24 HR* PATCH TRANSDERM SCH (09:56)
--- NOTE | 2019-08-09 11:09 | PN ---
Progress Note - Progress Note Date of Service: 08/09/19 SOAP: Subjective: Pt is doing well. Pain is controlled. Denies F/C, Calf pain or Cp/SOB. Objective: PE- 73 y/o WDWN F NAD, A&Ox3, resting comfortably in immobilizer, calf soft NT, able to perform SLR with minimal assistance, NVI Vital Signs Temp Pulse Resp BP Pulse Ox 97.3 F 63 18 119/66 97 08/09/19 03:15 08/09/19 07:20 08/09/19 07:20 08/09/19 03:15 08/09/19 07:20 Laboratory Results - last 24 hr 08/09/19 07:30 Urine Color Yellow Urine Appearance Cloudy Urine pH 5.0 Ur Specific [place] 1.017 Urine Protein Negative Urine Ketones Negative Urine Blood 2+ A Urine Nitrate Negative Urine Bilirubin Negative Urine Urobilinogen Negative Ur Leukocyte Esterase 2+ A Urine WBC (Auto) 3+(>20/hpf) A Urine RBC (Auto) 3+(>10/hpf) A Uric Acid Crystals Present A Urine Bacteria Absent Hyaline Casts Present A Urine Glucose Negative Assessment: Nondisplaced right tibial tubercle fracture Plan: Continue conservative treatment Knee immobilizer at all times, knee must stay in extension WBAT Cont PT Resuming at home eliquis is sufficient for DVT prophylaxis Continue tylenol for pain control Appreciate hospitalist input Orthopedically stable for DC F/U with Dr. Lane in 2 weeks
--- NOTE | 2019-08-09 11:49 | PN ---
Subjective Date of Service: 08/09/19 Interval History: Pt sleepy upon assessment but interactive. Denies any FERNANDES, CP, SOB, abdominal discomfort, numbness/tingling/weakness RLE. Denies any pain. Family History: Unchanged from Admission Social History: Unchanged from Admission Past Medical History: Unchanged from Admission Objective Active Medications: Acetaminophen (Tylenol Tab*) 975 mg PO Q6H [facility] Last Admin: 08/09/19 09:43 Dose: 975 mg Albuterol (Ventolin 2.5 Mg/3 Ml Neb.Cherie*) 2.5 mg INH Q4H PRN PRN Reason: SHORTNESS OF BREATH Apixaban (Eliquis*) 5 mg PO BID [facility] Last Admin: 08/09/19 09:47 Dose: 5 mg Calcium Carbonate (Tums*) 500 mg PO Q4H PRN PRN Reason: INDIGESTION Cholestyramine Resin (Questran*) 4 gm PO BEDTIME [facility] Last Admin: 08/08/19 19:39 Dose: 4 gm Cyanocobalamin (Vitamin B12 Tab*) 1,000 mcg PO DAILY [facility] Last Admin: 08/09/19 09:52 Dose: 1,000 mcg Docusate Sodium (Colace Cap*) 100 mg PO BID PRN PRN Reason: CONSTIPATION Last Admin: 08/08/19 21:46 Dose: 100 mg Ferrous Sulfate (Ferrous Sulfate Tab*) 325 mg PO DAILY [facility] Last Admin: 08/09/19 09:53 Dose: 325 mg Ceftriaxone Sodium 1 gm/ (Sodium Chloride) 50 mls @ 100 mls/hr IVPB Q24H [facility] Last Admin: 08/08/19 16:04 Dose: 100 mls/hr Linezolid (Zyvox Tab*) 600 mg PO BID [facility] Stop: 08/18/19 20:59 Last Admin: 08/09/19 09:56 Dose: 600 mg Magnesium Hydroxide (Milk Of Magnesia Liq*) 30 ml PO BID PRN PRN Reason: CONSTIPATION Last Admin: 08/08/19 21:45 Dose: 30 ml Magnesium Oxide (Magox 400 Tab*) 400 mg PO DAILY [facility] Last Admin: 08/09/19 09:47 Dose: 400 mg Metoprolol Tartrate (Lopressor Tab*) 50 mg PO BID WITH MEALS [facility] Last Admin: 08/09/19 09:46 Dose: 50 mg Montelukast Sodium (Singulair Tab*) 10 mg PO DAILY [facility] Last Admin: 08/09/19 09:46 Dose: 10 mg Nicotine (Nicotine Patch 7 Mg/24 Hr*) 1 patch TRANSDERM DAILY [facility] Last Admin: 08/09/19 09:56 Dose: 1 patch Pantoprazole Sodium (Protonix Tab*) 40 mg PO DAILY [facility] Last Admin: 08/09/19 09:46 Dose: 40 mg Pharmacy Profile Note (Nicotine Patch Removal Note*) 1 note PATCH OFF 2099 [facility] Last Admin: 08/08/19 20:17 Dose: Not Given Polyethylene Glycol/Electrolytes (Miralax (17 Gm Dose [place])) 17 gm PO DAILY PRN PRN Reason: CONSTIPATION Senna (Senokot 8.6 Mg Tab*) 1 tab PO DAILY [facility] Last Admin: 08/09/19 09:53 Dose: 1 tab Tiotropium [place]/Olodaterol (Stiolto Respimat Inh [place] (60 Puff)) 2 puff INH DAILY [facility] Last Admin: 08/09/19 07:19 Dose: 2 puff Vital Signs - 8 hr 08/09/19 07:20 Pulse Rate 63 Respiratory 18 Rate O2 Sat by Pulse 97 Oximetry Oxygen Devices in Use Now: Nasal Cannula Appearance: laying in chair, sleepy, NAD Ears/Nose/Mouth/Throat: NL Teeth, Lips, Gums Respiratory: Symmetrical Chest Expansion and Respiratory Effort - R lung clear but diminished throughout, Very fine inspiratory crackles to L mid-lung region, otherwise diminished Cardiovascular: NL Sounds; No Murmurs; No JVD - mild irregularity in rhythm Abdominal: NL Sounds; No Tenderness; No Distention Extremities: - - RLE in immobilizer, mild erythema RLE to calf as well as more mild erythema to L calf, feet appear normal Neurological: - - Oriented to situation, drowsy Nutrition: Taking PO's Result Diagrams: 08/08/19 07:08 08/08/19 07:08 Additional Lab and Data: Abnormal Lab Results 08/08/19 08/08/19 08/08/19 07:08 07:08 07:08 WBC 5.6 RBC 3.47 L Hgb 11.2 L Hct 33 L MCV 95 MCH 32 H MCHC 34 RDW 22 H Plt Count 146 L MPV 7.0 L INR (Anticoag Therapy) 2.00 H Sodium 138 Potassium 3.6 Chloride 98 L Carbon Dioxide 35 H Anion Gap 5 BUN 48 H Creatinine 1.23 H Est GFR ( Amer) 51.8 Est GFR (Non-Af Amer) 42.8 BUN/Creatinine Ratio 39.0 H Glucose 140 H Calcium 9.5 Microbiology and Other Data: Microbiology 08/06/19 14:55 Urine Culture - Final Urine Enterococcus Faecium 08/06/19 20:08 Aerobic Blood Culture - Preliminary Blood Venous No Growth Day 1 Anaerobic Blood Culture - Preliminary No Growth Day 1 08/06/19 14:15 Aerobic Blood Culture - Preliminary Blood Venous No Growth Day 1 Anaerobic Blood Culture - Preliminary No Growth Day 1 Assess/Plan/Problems-Billing Assessment: Ms. Rosado is a 73 y.o female with pmhx of HFpEF, afib, ckd, htn, and copd who presented to the emergency room after a fall at home with the complaints of right knee pain, found to have tibial tubrosity fracture, and dehydration. - Patient Problems (1) Closed fracture of right tibial tuberosity Current Visit: Yes Status: Acute Code(s): S82.151A - DISP FX OF RIGHT TIBIAL TUBEROSITY, INIT FOR CLOS FX SNOMED Code(s): 196276740 Comment: CT showed Right tibial tuberosity fracture - Ortho consulted recommended - knee immobilizer - will consult PT as well - pain medicaitons as needed for pain - weight bearing as tolerated - f/u with ortho in 1-2 weeks - likely need MONIKA, referrals out (2) Cellulitis Current Visit: Yes Status: Acute Code(s): L03.90 - CELLULITIS, UNSPECIFIED SNOMED Code(s): 837926625 Comment: patient is noted to have mild cellulitis to right lower leg and possibly a more mild case to LLE - starting on linezolid which will cover for MRSA (3) Dehydration Current Visit: Yes Status: Acute Code(s): E86.0 - DEHYDRATION SNOMED Code( s): 37826247 Comment: Poor appetite x 1 week - Creatinine continues to improve - will continue to hold diruetics- for now - encourage PO fluid/ food intake (4) Fall Current Visit: Yes Status: Acute Comment: -fall on friday08/08/2019 at home, now with right tibial tuberosity fracture - will have PT evaluate - will likely need MONIKA at discharge (5) Hypokalemia Current Visit: Yes Status: Acute Code(s): E87.6 - HYPOKALEMIA SNOMED Code( s): 57739570 Comment: resolved (6) Supratherapeutic INR Current Visit: Yes Status: Acute Code(s): R79.1 - ABNORMAL COAGULATION PROFILE SNOMED Code(s): 107505715 Comment: andreia is currently taking apixaban - suspect this is related to poor po intake and the use of this medication - lsat INR 2.0 - Continue apixaban (7) UTI (urinary tract infection) due to urinary indwelling catheter Current Visit: Yes Status: Acute Code(s): T83.511A - I/I REACT D/T INDWELLING URETHRAL CATHETER, INIT; N39.0 - URINARY TRACT INFECTION, SITE NOT SPECIFIED SNOMED Code(s): 670279692 Comment: given the patient general weakness, decreased po intake and abnormal UA with recent hx of UTI with showed MRSA and proteus penneri- - culture sensative to linezolid, also with MRSA coverage - Will have to stop citalopram which she can restart 24 hrs after last linezolid dose (8) Atrial fibrillation Current Visit: No Status: Acute Priority: Medium Code(s): I48.91 - UNSPECIFIED ATRIAL FIBRILLATION SNOMED Code(s): 30588319 Comment: - Rate controlled - Continue metoprolol 50 mg BID - continue eliquis (9) CHF (congestive heart failure) Current Visit: No Status: Acute Code(s): I50.9 - HEART FAILURE, UNSPECIFIED SNOMED Code(s): 13005130 Comment: No signs of exacerbation at this time. Awaiting bmp Continue metoprolol. (10) COPD (chronic obstructive pulmonary disease) Current Visit: No Status: Acute Code(s): J44.9 - CHRONIC OBSTRUCTIVE PULMONARY DISEASE, UNSPECIFIED SNOMED Code(s): 32657261 Comment: On 3L O2 at baseline. - No evidence of exacerbation. Continue Spiriva, nebs, singulair - No indication for steroids. - Aim for SpO2 goal 90-92% - Titrate order entered (11) JASMINA (obstructive sleep apnea) Current Visit: No Status: Acute Code(s): G47.33 - OBSTRUCTIVE SLEEP APNEA ( ADULT) (PEDIATRIC) SNOMED Code(s): 61051724 Comment: -Offer CPAP nightly (12) RADIO ASSEMBLER (ventriculoperitoneal) shunt status Current Visit: No Status: Acute Comment: -Prior cerebral aneurysm (13) DVT prophylaxis Current Visit: No Status: Acute Code(s): LRH6307 - SNOMED Code(s): 397665804 Comment: -eliquis (14) Full code status Current Visit: No Status: Acute Code(s): Z78.9 - OTHER SPECIFIED HEALTH STATUS SNOMED Code(s): 223374119 Status and Disposition: will need STR at discharge Attending: Jaqueline Block
[2019-08-09 12:25] LABS: ABS Basophils 0.1 10^3/ul (0-0.2); ABS Eosinophils 0.2 10^3/ul (0-0.6); ABS Lymphocytes 0.3 10^3/ul (1.0-4.8); ABS Monocytes 0.4 10^3/ul (0-0.8); ABS Neutrophils 4.5 10^3/ul (1.5-7.7); Eosinophil % 4.2 %; Hematocrit 32 % (35-47); Hemoglobin 10.8 g/dL (12.0-16.0); Lymphocyte % 5.2 %; Mean Corpuscular HGB Conc 34 g/dL (31-36); Mean Corpuscular Hemoglobin 32 pg (27-31); Mean Corpuscular Volume 96 fL (80-97); Nucleated Red Blood Cells % 0.1; Platelet Count 126 10^3/uL (150-450); Red Blood Count 3.34 10^6 /uL (3.70-4.87); Red Cell Distribution Width 22 % (10-15); White Blood Count 5.5 10^3/uL (3.5-10.8)
[2019-08-09 12:39] LABS: BUN/Creatinine Ratio 34.2 (8-20); Calcium 9.4 mg/dL (8.6-10.3); EGFR African American 54.9 (>60); EGFR Non-African American 45.3 (>60); Magnesium 2.1 mg/dL (1.9-2.7); Potassium 4.5 mmol/L (3.5-5.0)
[2019-08-09] MEDS: cefTRIAXone(*) 1 GM in NS 0.9% 50 ML* 50 ML IVPB SCH (15:41)
[2019-08-09] MEDS: Cholestyramine Resin* 4 GM POWDER PO SCH (20:01)
[2019-08-09] MEDS: Nicotine Patch Removal NOTE PATCH OFF SCH (20:05)
[2019-08-10] MEDS: Acetaminophen TAB* 325 MG PO SCH ×4 (01:53→21:04)
[2019-08-10 06:46] LABS: ABS Basophils 0.1 10^3/ul (0-0.2); ABS Eosinophils 0.2 10^3/ul (0-0.6); ABS Lymphocytes 0.3 10^3/ul (1.0-4.8); ABS Monocytes 0.3 10^3/ul (0-0.8); ABS Neutrophils 4.5 10^3/ul (1.5-7.7); Hematocrit 31 % (35-47); Hemoglobin 10.8 g/dL (12.0-16.0); Lymphocyte % 5.7 %; Mean Corpuscular HGB Conc 34 g/dL (31-36); Mean Corpuscular Hemoglobin 33 pg (27-31); Mean Corpuscular Volume 95 fL (80-97); Mean Platelet Volume 7.1 fL (7.4-10.4); Nucleated Red Blood Cells % 0.1; Platelet Count 132 10^3/uL (150-450); Red Blood Count 3.28 10^6 /uL (3.70-4.87); Red Cell Distribution Width 22 % (10-15); White Blood Count 5.4 10^3/uL (3.5-10.8)
[2019-08-10 06:56] LABS: BUN/Creatinine Ratio 30.8 (8-20); Calcium 9.7 mg/dL (8.6-10.3); EGFR African American 54.9 (>60); EGFR Non-African American 45.3 (>60); Potassium 4.3 mmol/L (3.5-5.0)
[2019-08-10] MEDS: Tiotropium Brom/Olodaterol MDI INH SCH (07:02)
--- NOTE | 2019-08-10 09:27 | PN ---
Progress Note - Progress Note Date of Service: 08/10/19 SOAP: Subjective: Pt is doing well. Pain is controlled. Denies F/C, Calf pain or Cp/SOB. Objective: General: pt is alert and oriented x 3. NAD. MSK, RLE: resting comfortably in immobilizer, calf soft NT, able to perform SLR with minimal assistance, NVI Vital Signs Temp 97.7 F 08/10/19 07:21 Pulse 81 08/10/19 07:21 Resp 20 08/10/19 07:21 BP 110/48 08/10/19 07:21 Pulse Ox 96 08/10/19 07:21 Intake & Output 08/09/19 08/10/19 08/10/19 18:59 06:59 18:59 Intake Total 680 0 Output Total 450 650 Balance 230 -650 Intake: Oral 680 0 Output: Urine 0 [place] 450 650 Other: # Bowel Movements 1 Estimated Stool Amount Small Assessment: Nondisplaced right tibial tubercle fracture Plan: Continue conservative treatment Knee immobilizer at all times, knee must stay in extension WBAT Cont PT Resuming at home eliquis is sufficient for DVT prophylaxis Continue tylenol for pain control Appreciate hospitalist input Orthopedically stable for DC F/U with Dr. Lane in 2 weeks
[2019-08-10] MEDS: Pantoprazole TAB * 40 MG TAB PO SCH (10:02)
[2019-08-10] MEDS: Linezolid TAB* 600 MG PO SCH ×2 (10:02→21:05)
[2019-08-10] MEDS: Senna TAB 8.6 mg* TAB PO SCH (10:02)
[2019-08-10] MEDS: Apixaban* 5 MG TAB PO SCH ×2 (10:02→21:04)
[2019-08-10] MEDS: Metoprolol Tartrate TAB* 50 mg PO SCH ×2 (10:02→17:32)
[2019-08-10] MEDS: Montelukast Sodium TAB* 10 MG PO SCH (10:02)
[2019-08-10] MEDS: Cyanocobalamin TAB* 500 MCG PO SCH (10:02)
[2019-08-10] MEDS: Nicotine PATCH 7 MG/24 HR* PATCH TRANSDERM SCH (10:03)
[2019-08-10] MEDS: Ferrous Sulfate TAB* 325 MG PO SCH (10:03)
[2019-08-10] MEDS: Magnesium Oxide TAB* 400 MG PO SCH (10:03)
--- NOTE | 2019-08-10 16:03 | PN ---
Subjective Date of Service: 08/10/19 Interval History: Ms. Rosado states she is tired today. She has been up with PT, who recommend MONIKA, which patient states is not preferable, but she is agreeable. She reports occasional pain in RLE. She also reports anterior arita pain in LLE. She has a chronic Jimenez which was changed at admission. She has no other complaints today. Family History: Unchanged from Admission Social History: Unchanged from Admission Past Medical History: Unchanged from Admission Objective Active Medications: Acetaminophen (Tylenol Tab*) 975 mg PO Q6H [facility] Last Admin: 08/10/19 14:03 Dose: 975 mg Albuterol (Ventolin 2.5 Mg/3 Ml Neb.Cherie*) 2.5 mg INH Q4H PRN PRN Reason: SHORTNESS OF BREATH Apixaban (Eliquis*) 5 mg PO BID [facility] Last Admin: 08/10/19 10:02 Dose: 5 mg Calcium Carbonate (Tums*) 500 mg PO Q4H PRN PRN Reason: INDIGESTION Cholestyramine Resin (Questran*) 4 gm PO BEDTIME [facility] Last Admin: 08/09/19 20:01 Dose: 4 gm Cyanocobalamin (Vitamin B12 Tab*) 1,000 mcg PO DAILY [facility] Last Admin: 08/10/19 10:02 Dose: 1,000 mcg Docusate Sodium (Colace Cap*) 100 mg PO BID PRN PRN Reason: CONSTIPATION Last Admin: 08/08/19 21:46 Dose: 100 mg Ferrous Sulfate (Ferrous Sulfate Tab*) 325 mg PO DAILY [facility] Last Admin: 08/10/19 10:03 Dose: 325 mg Linezolid (Zyvox Tab*) 600 mg PO BID [facility] Stop: 08/18/19 20:59 Last Admin: 08/10/19 10:02 Dose: 600 mg Magnesium Hydroxide (Milk Of Magnesia Liq*) 30 ml PO BID PRN PRN Reason: CONSTIPATION Last Admin: 08/08/19 21:45 Dose: 30 ml Magnesium Oxide (Magox 400 Tab*) 400 mg PO DAILY [facility] Last Admin: 08/10/19 10:03 Dose: 400 mg Metoprolol Tartrate (Lopressor Tab*) 50 mg PO BID WITH MEALS [facility] Last Admin: 08/10/19 10:02 Dose: 50 mg Montelukast Sodium (Singulair Tab*) 10 mg PO DAILY [facility] Last Admin: 08/10/19 10:02 Dose: 10 mg Nicotine (Nicotine Patch 7 Mg/24 Hr*) 1 patch TRANSDERM DAILY [facility] Last Admin: 08/10/19 10:03 Dose: 1 patch Pantoprazole Sodium (Protonix Tab*) 40 mg PO DAILY [facility] Last Admin: 08/10/19 10:02 Dose: 40 mg Pharmacy Profile Note (Nicotine Patch Removal Note*) 1 note PATCH OFF 2100 [facility] Last Admin: 08/09/19 20:05 Dose: Not Given Polyethylene Glycol/Electrolytes (Miralax (17 Gm Dose [place])) 17 gm PO DAILY PRN PRN Reason: CONSTIPATION Senna (Senokot 8.6 Mg Tab*) 1 tab PO DAILY [facility] Last Admin: 08/10/19 10:02 Dose: 1 tab Tiotropium [place]/Olodaterol (Stiolto Respimat Inh [place] (60 Puff)) 2 puff INH DAILY [facility] Last Admin: 08/10/19 07:02 Dose: 2 puff Vital Signs: Temp Pulse Resp BP Pulse Ox 97.2 F 75 20 110/60 93 08/10/19 11:06 08/10/19 11:06 08/10/19 11:06 08/10/19 11:06 08/10/19 11:06 Oxygen Devices in Use Now: Nasal Cannula Appearance: Ms. Rosado is an older white female who is sitting up in recliner with LE elevated. She appears somewhat older than stated age and frail. She appears to be in no acute distress and is breathing comfortably on home dose of 3L supplemental O2. Mildly confused at times. Eyes: No Scleral Icterus, PERRLA Ears/Nose/Mouth/Throat: NL Teeth, Lips, Gums, Clear Oropharnyx, - - dry oral mucosa Neck: NL Appearance and Movements; NL JVP, Trachea Midline Respiratory: Symmetrical Chest Expansion and Respiratory Effort, Clear to Auscultation Cardiovascular: NL Sounds; No Murmurs; No JVD, RRR, No Edema Abdominal: NL Sounds; No Tenderness; No Distention, No Hepatosplenomegaly Extremities: No Edema, No Clubbing, Cyanosis, - - RLE in brace, knee immobilized ; sensation, pulses, cap refill intact distally; RLE with tenderness to palpation at anterior lower leg Neurological: Alert and Oriented x 3 Result Diagrams: 08/10/19 06:19 08/10/19 06:19 Additional Lab and Data: Abnormal Lab Results 08/08/19 08/08/19 08/08/19 07:08 07:08 07:08 WBC 5.6 RBC 3.47 L Hgb 11.2 L Hct 33 L MCV 95 MCH 32 H MCHC 34 RDW 22 H Plt Count 146 L MPV 7.0 L INR (Anticoag Therapy) 2.00 H Sodium 138 Potassium 3.6 Chloride 98 L Carbon Dioxide 35 H Anion Gap 5 BUN 48 H Creatinine 1.23 H Est GFR ( Amer) 51.8 Est GFR (Non-Af Amer) 42.8 BUN/Creatinine Ratio 39.0 H Glucose 140 H Calcium 9.5 Microbiology and Other Data: Microbiology 08/06/19 14:55 Urine Culture - Final Urine Enterococcus Faecium 08/06/19 20:08 Aerobic Blood Culture - Preliminary Blood Venous No Growth Day 1 Anaerobic Blood Culture - Preliminary No Growth Day 1 08/06/19 14:15 Aerobic Blood Culture - Preliminary Blood Venous No Growth Day 1 Anaerobic Blood Culture - Preliminary No Growth Day 1 Assess/Plan/Problems-Billing Assessment: Ms. Rosado is a 73 y.o female with pmhx of HFpEF, afib, ckd, htn, and copd who presented to the emergency room after a fall at home with the complaints of right knee pain, found to have tibial tubrosity fracture, and dehydration. - Patient Problems (1) Closed fracture of right tibial tuberosity Comment: -CT showed Right tibial tuberosity fracture -Ortho consulted recommended - knee immobilizer -will consult PT as well -pain medications as needed for pain -weight bearing as tolerated -f/u with ortho in 1-2 weeks -plan for MONIKA (2) Cellulitis Comment: -patient is noted to have mild cellulitis to right lower leg and possibly a more mild case to LLE -linezolid for cellulits, UTI (3) UTI (urinary tract infection) due to urinary indwelling catheter Comment: -UA concerning for UTI; UC reveals enterococcus faecium -chronic jimenez, which was replaced at admission -culture sensative to linezolid, also with MRSA coverage for cellulitis -will have to stop citalopram which she can restart 24 hrs after last linezolid dose (4) Fall Comment: -fall on friday08/08/2019 at home, now with right tibial tuberosity fracture -PT recommends [facility] -patient agreeable; plan for d/c to [facility] (5) Atrial fibrillation Comment: -rate controlled -continue metoprolol 50 mg BID -continue eliquis (6) CHF (congestive heart failure) Comment: -no signs of exacerbation at this time. -continue metoprolol -plan to restart diuretics in a.m. (7) COPD (chronic obstructive pulmonary disease) Comment: -On 3L O2 at baseline -no evidence of exacerbation -continue Spiriva, nebs, singulair -SpO2 goal 90-92% (8) DVT prophylaxis Comment: -eliquis (9) Full code status (10) JASMINA (obstructive sleep apnea) Current Visit: No Status: Acute Code(s): G47.33 - OBSTRUCTIVE SLEEP APNEA ( ADULT) (PEDIATRIC) SNOMED Code(s): 87799033 Comment: -Offer CPAP nightly (11) POWDER NIPPER (ventriculoperitoneal) shunt status Current Visit: No Status: Acute Comment: -Prior cerebral aneurysm Status and Disposition: Inpatient. Plan for discharge to [facility], in a.m.
[2019-08-10] MEDS: Cholestyramine Resin* 4 GM POWDER PO SCH (21:05)
[2019-08-10] MEDS: Nicotine Patch Removal NOTE PATCH OFF SCH (21:06)
[2019-08-11] MEDS: Acetaminophen TAB* 325 MG PO SCH ×4 (02:00→21:03)
[2019-08-11] MEDS: Tiotropium Brom/Olodaterol MDI INH SCH (07:48)
[2019-08-11] MEDS ORDERED: Lorazepam PYXIS KEY ONE (09:17)
[2019-08-11] MEDS: Apixaban* 5 MG TAB PO SCH ×2 (09:41→21:00)
[2019-08-11] MEDS: Torsemide TAB* 20 MG PO SCH (09:41)
[2019-08-11] MEDS: Metoprolol Tartrate TAB* 50 mg PO SCH ×2 (09:42→17:52)
[2019-08-11] MEDS: Pantoprazole TAB * 40 MG TAB PO SCH (09:42)
[2019-08-11] MEDS: Cyanocobalamin TAB* 500 MCG PO SCH (09:44)
[2019-08-11] MEDS: Ferrous Sulfate TAB* 325 MG PO SCH (09:44)
[2019-08-11] MEDS: Magnesium Oxide TAB* 400 MG PO SCH (09:45)
[2019-08-11] MEDS: Montelukast Sodium TAB* 10 MG PO SCH (09:45)
[2019-08-11] MEDS: Linezolid TAB* 600 MG PO SCH ×2 (09:45→21:00)
[2019-08-11] MEDS: Senna TAB 8.6 mg* TAB PO SCH (09:46)
[2019-08-11] MEDS: Nicotine PATCH 7 MG/24 HR* PATCH TRANSDERM SCH (09:46)
--- NOTE | 2019-08-11 14:11 | PN ---
Progress Note - Progress Note Date of Service: 08/11/19 SOAP: Subjective: Pt seen at bedside for right leg tibial tubercle fx. Pt is doing well. Pain is controlled with immobilizer on. Denies F/C, Calf pain or Cp/SOB. Objective: Vital Signs: Temp Pulse Resp BP Pulse Ox 98.0 F 77 20 96/60 98 08/11/19 11:15 08/11/19 11:15 08/11/19 11:15 08/11/19 11:15 08/11/19 11:15 Gen: A&O x 3. NAD sitting in bed. RLE: Immobilizer in place, calf soft NT, able to perform SLR with minimal assistance. +f/e at ankle and MTPs. N/V intact Assessment: Nondisplaced right tibial tubercle fracture Plan: D/C to [facility] today for MONIKA Knee immobilizer at all times, knee must stay in extension WBAT Cont PT Eliquis for DVT prophylaxis Continue tylenol for pain control F/u with Dr. Lane in 2 weeks
--- NOTE | 2019-08-11 14:30 | DS ---
CC: Dr. Morgan Mccarthy; Dr. Anthony Lane; Dr. Nickie Lazar* DISCHARGE SUMMARY: DATE OF ADMISSION: 08/06/19 DATE OF DISCHARGE: 08/11/19 PRIMARY CARE PROVIDER: Dr. Morgan Mccarthy. OTHER PROVIDER: Dr. Anthony Lane. ATTENDING PHYSICIAN: Dr. Nickie Lazar* (dictated by CHING Sesay). PRIMARY DIAGNOSES: 1. Right tibial tubercle fracture. 2. Right lower extremity cellulitis. 3. Urinary tract infection with enterococcus. 4. Dehydration. SECONDARY DIAGNOSES: 1. Heart failure with preserved ejection fraction. 2. Atrial fibrillation, on anticoagulation. 3. Chronic obstructive pulmonary disease, on 3 L of oxygen at all times. 4. Hypertension. 5. Chronic kidney disease. 6. History of cerebral aneurysm/cerebrovascular accident, status post clipping and [employer] shunt. 7. Obstructive sleep apnea, does not use CPAP at home. 8. Urinary retention with chronic Davis. 9. History of tobacco abuse. 10. Pulmonary hypertension. 11. Gastroesophageal reflux disease. 12. Osteoarthritis. 13. Cataracts. STUDIES WHILE IN THE HOSPITAL: 1. Right ankle x-ray, impression: Osteopenia. Osteoarthritis. There is periosteal reaction along the distal and medial tibia, which may reflect healing response in the setting of subacute fracture. Recommend correlation with site of pain. Peripheral arterial disease. 2. Right knee, impression: No fracture of the knee is noted. Degenerative changes in the medial compartment, right knee. 3. Right tibia/fibula, impression: Osteopenia. Osteoarthritis. There is periosteal reaction along the distal and medial tibia, which may reflect healing response in the setting of subacute fracture. Recommend correlation with the site of pain. Peripheral artery disease. 4. CT right lower extremity, impression: There is likely fracture at the tibial tuberosity with soft tissue swelling and joint effusion. No significant displacement is noted. The ankle joint demonstrates no evidence of fracture. 5. Abdomen/KUB, impression: Ventriculoperitoneal shunt in place. Bowel gas pattern is otherwise unremarkable. 6. Left tib/fib x-ray, impression: Osteopenia with no displaced fracture. Vascular calcification. 7. Left lower extremity Doppler, impression: No left lower extremity DVT. CONSULTATIONS WHILE IN THE HOSPITAL: Orthopedics, impression and plan: Nondisplaced right tibial tubercle fracture. I discussed the diagnosis and treatment options with Litzy. My recommendation is conservative treatment with knee immobilizer at all times and weightbearing as tolerated. PT. She can follow up in the office in 1 to 2 weeks for a repeat check. DISCHARGE MEDICATIONS: Home medications: 1. Acetaminophen 1000 mg p.o. q.8 hours p.r.n. 2. Albuterol inhaler 1 puff inhalation q.4 hours p.r.n. 3. Alendronate 70 mg p.o. weekly. 4. Apixaban 5 mg p.o. b.i.d. 5. Cholestyramine 4 g p.o. at bedtime. 6. Cyanocobalamin 1000 mcg p.o. daily. 7. Ferrous sulfate 325 mg p.o. daily. 8. Magnesium oxide 400 mg p.o. daily. 9. Metolazone 5 mg p.o. 3 times per week. 10. Metoprolol tartrate 50 mg p.o. b.i.d. with meals. 11. Montelukast 10 mg p.o. daily. 12. Nicotine patch 7 mg transdermally daily. 13. Omeprazole 20 mg p.o. daily. 14. Polyethylene glycol 17 g p.o. daily p.r.n. 15. Torsemide 20 mg p.o. daily. 16. Anoro Ellipta 1 puff inhalation daily. New home medications: 1. Docusate 100 mg p.o. b.i.d. p.r.n. 2. Linezolid 600 mg p.o. b.i.d. HISTORY OF PRESENT ILLNESS/HOSPITAL COURSE: Ms. Rosado is a 73-year-old female with a past medical history of heart failure with preserved ejection fraction; atrial fib, on anticoagulation; COPD, on 3 L of oxygen at all times; history of tobacco use, who recently quit smoking; hypertension; pulmonary hypertension, who presented to the ER on 08/06/19 with complaints of right knee pain following a fall. The patient arrived at the emergency room and received imaging. X-rays revealed some mild abnormalities and therefore, a CT of the right lower extremity was obtained; this revealed a proximal tibial fracture. Orthopedics was consulted and recommended conservative treatment, knee immobilization, PT/OT, weightbearing as tolerated, followup within 2 weeks of discharge. The patient obtained a knee immobilizer and worked with Physical Therapy throughout her stay. Physical Therapy recommended skilled PT. The patient was agreeable to this and will therefore be discharged to [facility]. The patient's hospital course was complicated by mild right lower extremity cellulitis. She was started on doxycycline and ceftriaxone and was eventually transitioned to cefepime at discharge. The patient was also noted to have a urinary tract infection at admission. During her hospital stay, urine culture revealed Enterococcus faecium sensitive to linezolid. Therefore, the patient was transitioned to linezolid, which will effectively cover right lower extremity cellulitis. At admission, the patient was noted to have hypokalemia which responded well to potassium repletion. She also had mild lactic acidosis of 2.5, which resolved with IV hydration. She appeared to be dehydrated at admission, which also resolved with IV hydration and the patient's oral intake was within normal limits. By the time of discharge, her creatinine/kidney function was also within her baseline range of CKD. At the time of discharge, the patient states that she is tired. She has some left calf pain and some probable abnormality in the left calf that could represent cords and therefore, an ultrasound of left lower extremity was obtained which was negative. The patient continues to have some mild left calf pain with palpation. She also has knee pain which is acute in the setting of right tibial tubercle fracture and complaints of left shoulder pain which she states is chronic. She has no other complaints today and denies dizziness, lightheadedness, vision changes, headache, chest pain, shortness of breath, cough, fever, chills, abdominal pain, nausea, vomiting, diarrhea, constipation. She reports she had a bowel movement yesterday. She is eating and drinking well. She denies dyspnea and is on her usual dose of 3 L of supplemental oxygen. Ms. Rosado is stable for discharge home. PHYSICAL EXAMINATION: Vital Signs: Temperature 98.6 temporal, heart rate 60, respiratory rate 29, oxygen saturation 97% on 3 L of oxygen, blood pressure 120/ 60. General: Ms. Rosado is a well-developed, well-nourished, older white female who is sitting up in bed. She appears to be in no acute distress. She is breathing comfortably on 3 L of supplemental oxygen which is her home dose. She appears frail. HEENT: PERRL. EOMI. Nonicteric sclerae. Hearing is grossly intact. Oral mucous membranes are dry. The pharynx is clear without lesions and the palate elevates symmetrically. Tongue is at midline. Cardiovascular: Irregular rate and rhythm. S1 and S2 present without murmurs, rubs, clicks, or gallops. There is no perceivable JVD. There is no lower extremity edema. Pulmonary: Symmetrical chest expansion without use of accessory muscles; clear to auscultation bilaterally without rhonchi, wheeze or rales. Abdomen: Bowel sounds in all quadrants, soft, nontender to palpation. Extremities: Right lower extremity with knee immobilizer in place. Sensation intact distally. Cap refill less than 2 seconds. Pulses intact distally bilaterally. The patient is able to move digits distally. Left lower extremity with tenderness at the anterior lower leg as well as tenderness along the calf. There are some palpable abnormalities posteriorly in the calf that could represent cords (ultrasound for DVT negative). Neuro: The patient is awake. She is alert and oriented x3. Cranial nerves II through XII are grossly intact. DISCHARGE PLAN: Ms. Rosado will be discharged to [facility]. CONDITION: Fair. DIET: Heart healthy. ACTIVITY: 1. Right knee immobilizer at all times; knee must stay in full extension. 2. Weightbearing as tolerated. MEDICATIONS: 1. Tylenol as needed for pain control. 2. Linezolid 700 mg p.o. b.i.d., last dose due 08/18/19 evening. 3. May restart citalopram 30 mg 24 to 48 hours after the last dose of linezolid. EDUCATION: 1. Follow up with Dr. Lane within 2 weeks. Call Ortho office at to make an appointment or with any questions or concerns. 2. Return to the ER for any concerns. This is a summarized report of a complex medical history and hospital stay. For further details, please see the entire medical record. TIME SPENT: Approximately 35 minutes was spent on this discharge, greater than half that time was spent [id number] with the patient discussing discharge plans and instructions. CHING ROSALES [id number]/[facility] #: [id number] DOREEN
[2019-08-11] MEDS: Cholestyramine Resin* 4 GM POWDER PO SCH (21:03)
[2019-08-11] MEDS: Nicotine Patch Removal NOTE PATCH OFF SCH (21:04)
[2019-08-12] MEDS: Acetaminophen TAB* 325 MG PO SCH ×3 (01:41→12:33)
[2019-08-12] MEDS: Tiotropium Brom/Olodaterol MDI INH SCH (08:09)
[2019-08-12] MEDS: Torsemide TAB* 20 MG PO SCH ×2 (10:15→10:44)
[2019-08-12] MEDS: Pantoprazole TAB * 40 MG TAB PO SCH (10:16)
[2019-08-12] MEDS: Apixaban* 5 MG TAB PO SCH (10:16)
[2019-08-12] MEDS: Cyanocobalamin TAB* 500 MCG PO SCH (10:16)
[2019-08-12] MEDS: Montelukast Sodium TAB* 10 MG PO SCH (10:16)
[2019-08-12] MEDS: Metoprolol Tartrate TAB* 50 mg PO SCH (10:17)
[2019-08-12] MEDS: Senna TAB 8.6 mg* TAB PO SCH (10:17)
[2019-08-12] MEDS: Ferrous Sulfate TAB* 325 MG PO SCH (10:18)
[2019-08-12] MEDS: Magnesium Oxide TAB* 400 MG PO SCH (10:18)
[2019-08-12] MEDS: Nicotine PATCH 7 MG/24 HR* PATCH TRANSDERM SCH (10:19)
[2019-08-12] MEDS: Linezolid TAB* 600 MG PO SCH (10:19)
[2019-08-12] MEDS: Metolazone TAB* 5 MG PO SCH ×2 (10:35→11:08)
[2019-08-12 11:37] VITALS: BP 125/50
== END 2019-08-12 13:10 | DRG 563 ==
LOC: ED 13:23 → MEDTELE 16:18
PROVIDERS: ADMIT Internal Medicine; ATTEND Internal Medicine
PROC: 5A09357 Assistance with Respiratory Ventilation, Less than 24 Consecutive Hours, Continuous Positive Airway Pressure (ICD-10-PCS; principal; 2019-08-09)
DX: S82.154A Nondisplaced fracture of right tibial tuberosity, initial encounter for closed fracture (principal); T83.511A Infection and inflammatory reaction due to indwelling urethral catheter, initial encounter; L03.115 Cellulitis of right lower limb; N39.0 Urinary tract infection, site not specified; I13.0 Hypertensive heart and chronic kidney disease with heart failure and stage 1 through stage 4 chronic kidney disease, or unspecified chronic kidney disease; I50.32 Chronic diastolic (congestive) heart failure; E87.2 Acidosis; N17.9 Acute kidney failure, unspecified; Z66 Do not resuscitate; B95.2 Enterococcus as the cause of diseases classified elsewhere; E86.0 Dehydration; N18.9 Chronic kidney disease, unspecified; I48.91 Unspecified atrial fibrillation; J44.9 Chronic obstructive pulmonary disease, unspecified; Z98.2 Presence of cerebrospinal fluid drainage device; G47.33 Obstructive sleep apnea (adult) (pediatric); R33.8 Other retention of urine; K21.9 Gastro-esophageal reflux disease without esophagitis; H26.9 Unspecified cataract; I27.20 Pulmonary hypertension, unspecified; E87.6 Hypokalemia; M79.662 Pain in left lower leg; M25.512 Pain in left shoulder; K59.00 Constipation, unspecified; E11.36 Type 2 diabetes mellitus with diabetic cataract; E11.22 Type 2 diabetes mellitus with diabetic chronic kidney disease; E78.00 Pure hypercholesterolemia, unspecified; B95.62 Methicillin resistant Staphylococcus aureus infection as the cause of diseases classified elsewhere; T50.2X5A Adverse effect of carbonic-anhydrase inhibitors, benzothiadiazides and other diuretics, initial encounter; F32.9 Major depressive disorder, single episode, unspecified; R79.1 Abnormal coagulation profile; M19.071 Primary osteoarthritis, right ankle and foot; M85.871 Other specified disorders of bone density and structure, right ankle and foot; I73.9 Peripheral vascular disease, unspecified; M17.11 Unilateral primary osteoarthritis, right knee; W19.XXXA Unspecified fall, initial encounter; Z99.81 Dependence on supplemental oxygen; Z86.73 Personal history of transient ischemic attack (TIA), and cerebral infarction without residual deficits; Z87.891 Personal history of nicotine dependence; Z79.01 Long term (current) use of anticoagulants; Z79.51 Long term (current) use of inhaled steroids; Z79.899 Other long term (current) drug therapy; Z86.718 Personal history of other venous thrombosis and embolism; Z87.01 Personal history of pneumonia (recurrent); Z87.11 Personal history of peptic ulcer disease; Z87.442 Personal history of urinary calculi; Z90.710 Acquired absence of both cervix and uterus; Z90.49 Acquired absence of other specified parts of digestive tract; Z86.14 Personal history of Methicillin resistant Staphylococcus aureus infection; Z72.89 Other problems related to lifestyle; Z91.018 Allergy to other foods; Y92.009 Unspecified place in unspecified non-institutional (private) residence as the place of occurrence of the external cause; Y84.6 Urinary catheterization as the cause of abnormal reaction of the patient, or of later complication, without mention of misadventure at the time of the procedure
CPT/HCPCS: 36415; 74018; 80048; 80053; 81003; 81015; 83605; 83735; 84484; 85025; 85027; 85610; 85730; 87040; 87077; 87086; 87186; 93005; 94640; 94660; 96365; 99284; A9270-GY; J0696; J3535